=== PATIENT | male | born 1935 | race Caucasian/White ===

== ENCOUNTER → 2019-03-10 13:58 | Outpatient (CLI) | payer MEDICARE, SELFPAY ==
[2019-02-21 11:10] VITALS: BMI 29.7
--- NOTE | 2019-03-10 14:00 | ECHOCS_ITS ---
Reason For Study: CAD Procedure This was a 2D Doppler, Color Flow transthoracic echocardiogram. The study was technically difficult. Exam performed in department. Left Ventricle Normal size and thickness. The estimated ejection fraction is 75 %. Stage 1 diastolic dysfunction. No regional wall motion abnormalities noted. Right Ventricle Normal size and thickness. Normal systolic function. Atria Normal left atrium. Normal right atrium. Normal atrial septum. Mitral Valve The mitral valve is structurally normal. No prolapse or stenosis seen. Trivial mitral valve insufficiency. Tricuspid Valve Normal tricuspid valve. Unable to estimate RV systolic pressure due to insufficient tricuspid regurgitant envelope. Aortic Valve Trisinus/trileaflet aortic valve. Mild diffuse aortic valve thickening. There is no aortic stenosis. Pulmonic Valve Normal pulmonic valve. Great Vessels Normal aortic root. Normal arch. Normal inferior vena cava. Inferior vena cava collapse with sniff. Pericardium/Pleural No pericardial effusion. Medication 22 gauge I.V. with prn adaptor inserted into right arm. Diluted definity 2ml given slow IV push to enhance endocardial definition. MMode/2D Measurements & Calculations LVIDd: 3.7 cm IVSd: 1.1 cm LVOT diam: 2.2 cm LVIDs: 2.4 cm LVPWd: 0.99 cm FS: 35.9 % LVOT area: 3.8 cm2 Ao root diam: 3.6 cm LAV(MOD-bp): 44.0 ml LA A4 area: 12.8 cm2 LAV(MOD-bp) Indexed: 22.7 ml/m2 LAV(MOD-sp2): 69.7 ml LAV(MOD-sp4): 25.2 ml LA dimension(2D): 3.6 cm RA A4 area: 9.5 cm2 Doppler Measurements & Calculations MV E max michael: 63.3 cm/sec Lat Peak E' Michael: 13.1 cm/sec Med Peak E' Michael: 5.8 cm/sec MV A max michael: 93.2 cm/sec E/E' lat: 4.8 E/E' med: 11.0 MV E/A: 0.68 Ao V2 max: 148.7 cm/sec LV V1 max: 112.3 cm/sec PA V2 max: 115.4 cm/sec Ao max P.8 mmHg LV V1 max P.0 mmHg NEERU(V,D): 2.8 cm2 Interpretation Summary Stage 1 diastolic dysfunction. Trivial mitral valve insufficiency. The estimated ejection fraction is 75 %. The study was technically difficult. There is no comparison study available. Contrast injection was performed. Ordering Physician: Stefano Holguin Referring Physician: Stefano Holguin Performed By: Alycia Ramirez RDCS
== END ==
PROVIDERS: Family Provider Internal Medicine; PCP Internal Medicine; Referring Provider Internal Medicine Cardiovascular Disease; Visit Provider Internal Medicine Cardiovascular Disease
DX: I25.10 Atherosclerotic heart disease of native coronary artery without angina pectoris (principal)
CPT/HCPCS: 93306; Q9957; A4216; C8929

== ENCOUNTER → 2019-03-15 12:22 | Outpatient (CLI) | payer MEDICARE, SELFPAY ==
[2019-02-21 11:10] VITALS: BMI 29.7
--- NOTE | 2019-03-15 12:23 | STEWCON_ITS ---
Reason For Study: CAD/ASHD Stress Results Protocol: Johnny Protocol Maximum Predicted HR: 138 bpm Target HR: 117 bpm % Maximum Predicted HR: 99 % DurationHeart Rate Stage (mm:ss) (bpm) BP Comment Baseline 77 136/70No Chest Pain; Definity 3 ML Given Johnny Protocol Stage I 3:00 112 140/72No Chest Pain; Mild Dyspnea Johnny Protocol Stage II 2:01 136 150/70No Chest Pain; Mild to Moderate Dyspnea Recovery 80 130/76No Chest Pain Stress Duration: 5:01 mm:ss Maximum Stress HR: 136 bpm METS: 7 Baseline Echocardiogram Findings The estimated ejection fraction is 65 %. Stress Echo Wall motion Data Resting WM Intermediate WM Stress WM Resting Wall Motion Wall Motion Stress No regional wall motion No regional wall motion abnormalities noted. abnormalities noted. EKG Data The baseline ECG displays normal sinus rhythm. The patient exercised according to the regular Johnny protocol for a total duration of 5:01. The maximum heart rate attained was 137 beats per minute. This was 99% of maximum predicted heart rate. The patient exercised into stage 2 of the Johnny protocol. During stress, there were no ST or T wave changes noted to suggest ischemia. No clinical angina was noted. Interpretation Summary The estimated ejection fraction is 65 %. Normal, adequate, treadmill echocardiogram. Negative for ischemia by EKG and echocardiographic criteria. No anginal symptoms noted. Rare PVCs and ventricular couplets noted. Average exercise capacity for age. Decreased sensitivity due to poor echo windows requiring Definity agent. Final LVEF is 75%. Test terminated due to fatigue. The study was technically difficult. Contrast injection was performed. Ordering Physician: Stefano Holguin Referring Physician: Rolanda Giraldo Performed By: Rosy Hunt, RDCS, RVT
== END ==
PROVIDERS: Family Provider Internal Medicine; PCP Internal Medicine; Referring Provider Internal Medicine Cardiovascular Disease; Visit Provider Internal Medicine Cardiovascular Disease
DX: I25.10 Atherosclerotic heart disease of native coronary artery without angina pectoris (principal)
CPT/HCPCS: 93017; 93350; Q9957; A4216; C8928

== ENCOUNTER 2020-07-22 11:18 | Inpatient (IN) | payer MEDICARE, SELFPAY ==
[2020-03-19 11:07] VITALS: BMI 28.8
[2020-07-22] VITALS (13 sets, daily range): BP systolic 114–169; BP diastolic 49–82; PULSE 57–80; RESP 14–18; TEMP 35.9–36.9; O2SAT 88–99; BMI 28.9; BMI 29.0; BMI 28.5
--- NOTE | 2020-07-22 11:43 | CT_ITS ---
STUDY: CT ABDOMEN AND PELVIS WITH CONTRAST REASON FOR EXAM: Male, 85 years old. ABD PAIN,N/V HX-PROSTATE CA -RADIATION, LUNG CA RLL REMOVED 2013, HTN RADIATION DOSAGE (If Supplied By Facility): CTDIvol = ( 14.58 ) mGy, DLP = ( 831.28 ) mGycm TECHNIQUE: Transaxial images were obtained from the dome of the diaphragm to the symphysis pubis without oral contrast. 100ML ISOVUE 300 was administered. Sagittal and coronal images were reconstructed. Individualized dose optimization techniques were used for this CT. COMPARISON: Comparison is made with prior study dated 04/25/2015. FINDINGS: Stable mild increase in linear markings at the lung bases suggestive of scarring. Surgical sutures are seen in the posterior medial aspect of the right lower lobe. Calcified right infrahilar lymph nodes. Coronary artery calcification. There is decreased attenuation of the liver consistent with steatosis. Normal gallbladder and extrahepatic biliary system. There is mild splenomegaly. Normal pancreas. There is a small, circumscribed, smooth, low attenuation left adrenal mass, consistent with an adrenal adenoma. This measures 1.5 cm. Normal right adrenal gland. 3.5 cm cyst in the medial aspect of the right kidney. This has increased in size as compared to prior study. Normal left kidney. There is a small hiatal hernia. There are dilated loops of the small intestine with a non-distended colon consistent with a small bowel obstruction. The small bowel obstruction is due to a left inguinal hernia. There are multiple colonic diverticula consistent with diverticulosis. The appendix is visualized and appears normal. There is diffuse atherosclerotic calcification of the abdominal aorta, without a demonstrated aneurysm. Normal inferior vena cava. Normal retroperitoneum. Normal urinary bladder. Small amount of free fluid is seen in the pelvis. Phleboliths are seen within the pelvis. Prostatic calcifications. Left inguinal hernia containing a small bowel loop. There are degenerative changes of the visualized lumbar spine. CT/Abdomen/Pelvis W IV Cont ONLY IMPRESSION: Small bowel obstruction due to a left inguinal hernia containing a small bowel loop. Diffuse fatty position of the liver. Splenomegaly. Right renal cyst. Electronically Signed: Niko Diaz, at 13:56 EDT , Service support ,
[2020-07-22] MEDS: Morphine 4 MG/ML Syringe IV (12:11)
[2020-07-22] MEDS: Ondansetron 4 MG/2 ML Vial IV (12:11)
--- NOTE | 2020-07-22 12:13 | ED.DCSUM_ITS ---
- ER Visit Summary Date of Service: 07/22/20 Chief Complaint: Abdominal pain History of Present Illness: The patient is a 85 M who presents with abdominal pain. Started this morning. He states he ate breakfast and then after that started having diffuse sharp abdominal pain. Nothing makes it better or worse. He has had nausea and vomiting as well. No diarrhea or constipation. Denies urinary symptoms. No fevers. He denies any history of abdominal surgeries. He states he has had colitis in the past but this feels different. Physical Examination: Vital signs reviewed. HEENT exam unremarkable. Heart is regular rate and rhythm without murmurs. Lungs are clear to auscultation. Abdomen is soft with diffuse tenderness but the left seems to be more tender than the right. He does have rebound tenderness. Extremities reveal no edema. Skin exam normal. Neurologic exam normal. Test Results: Laboratory studies show white blood cell count 11.8, glucose 154, BUN of 20. Lactate is 3.7. CAT scan the abdomen pelvis shows a small bowel obstruction with concerns for left inguinal hernia Emergency Department Course and Treatment: Patient was more comfortable with morphine and Zofran. I discussed with Dr. Landeros with surgery. He reviewed the images and felt that the inguinal hernia was not the cause of it. The transition point was higher up in the abdomen. He evaluated this patient and like to take this patient to surgery. Patient will be admitted for surgical care then will be admitted to [facility] after the operating room. Treatment Plan: [] Disposition: Admit Impression: Small bowel obstruction This note was generated with [facility] dictation software. It may contain incorrect words, spelling, and punctuation that were not noted in review of the chart prior to signing ED Disposition - Plan for ED Patient: Referrals: Rolanda Giraldo MD [Primary Care Provider] -
[2020-07-22 12:18] LABS: Absolute Lymphocyte Count 0.66 X10^3/uL (0.83-4.51); Absolute Neutrophil Count 10.3 X10^3/uL (2.0-7.7); Basophil# 0.04 X10^3/uL; Basophil% 0.3 % (0-1); Eosinophil# 0.03 X10^3/uL; Eosinophils% 0.3 % (0-5); Hematocrit 45.3 % (40-54); Hemoglobin 14.6 g/dL (13.0-16.5); Lymphocyte # 0.66 X10^3/ul (4.0); Lymphocyte % 5.6 % (19-41); Mean Corp Hgb Conc 32.2 g/dL (32-36); Mean Corpuscular Hgb 30.9 pg (27.0-32.0); Mean Corpuscular Volume 95.8 fL (80-94); Mean Platelet Vol. 12.5 fl (6.2-12.0); Monocyte# 0.65 X10^3/uL; Monocyte% 5.5 % (0-10); NRBC Flagged by Analyzer 0 % (0-5); Neutrophil # 10.33 X10^3/uL (2.7-7.7); Neutrophil % 87.7 % (47-70); Platelet Count 357 K/mm3 (150-450); RBC Distribution Width CV 13.3 % (11.6-14.6); RBC Distribution Width SD 46.9 fl (35.1-43.9); Red Blood Count 4.73 M/mm3 (4.6-6.2); White Blood Count 11.8 K/mm3 (4.4-11.0)
[2020-07-22 12:46] LABS: AST(SGOT) 14 U/L (15-37); Alanine Aminotransfer ALT/SGPT 17 U/L (16-61); Albumin, Serum 4.2 g/dL (3.2-5.0); Alkaline Phosphatase 95 U/L (45-117); Anion Gap 9 (5-15); BUN 20 mg/dL (7-18); BUN/Creat Ratio 18.5 RATIO (10-20); Bilirubin, Direct 0.19 mg/dL (0.00-0.30); Calcium,Total 9.9 mg/dL (8.5-10.1); Chloride 102 mmol/L (98-107); Creatinine, Serum 1.08 mg/dL (0.70-1.30); EST Glomerular Filtration Rate 69 mL/min (>60); Est Glom Filt Rate - Afr Amer 84 mL/min (>60); Estimated Creatinine Clearance 45.95 ml/min; Globulin 3.4 g/dL (2.2-4.2); Glucose 154 mg/dL (74-106); Lipase 93 U/L (73-393); Potassium 3.6 mmol/L (3.5-5.1); Protein, Total 7.6 g/dL (6.4-8.2); Sodium Level 138 mmol/L (136-145)
[2020-07-22 12:53] LABS: Lactic Acid 3.7 mmol/L (0.4-1.9)
--- NOTE | 2020-07-22 14:54 | PCM.HP.STD ---
Problem List (1) SBO (small bowel obstruction) Status: Acute History of Present Illness Date of Admission: 07/22/20 The patient is a 85 year old M presented to the emergency room with left lower quadrant pain and nausea and vomiting. The patient had the symptoms started today. He said he was in normal health until today. He ate a normal breakfast. He developed nausea and vomiting as well as left lower quadrant pain which brought him into the hospital. He does not have any flatus since this morning. He is belching and vomiting. His pain is worse in the left lower quadrant he is not have any pain in the rest of the abdomen. He has never had any intra-abdominal surgery. His only surgical history is a left inguinal hernia Past Medical History Past Medical History (Chronic Problems): Chronic Problems (Last Reviewed 03/19/20 @ 11:07 by Chyna Tomlinson) Essential hypertension (Chronic) Stented coronary artery (Chronic 09/12/13) 4.0 X 18 mm Integrity BMS to mid-RCA on 09/13/[address] 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) K52.0 Diverticulosis of colon (Chronic) K57.30 History of basal cell carcinoma (Chronic) Z85.828 Benign neoplasm of colon (Chronic) D12.6 Bladder cancer (Chronic) C67.9 Obesity (BMI 30.0-34.9) (Chronic) E66.9 Anxiety (Chronic) F41.9 Allergies amoxicillin Adverse Reaction (Verified 07/22/20 11:20) GI upset lisinopril Adverse Reaction (Verified 07/22/20 11:20) COUGH Home Medications: Ambulatory Orders Medication Instructions Recorded Aspirin [Aspirin, Baby] 81 mg PO DAILY@0800 04/25/15 Folic Acid 1 mg PO DAILY@0800 03/16/17 abiraterone 250 mg tablet 1,000 mg PO DAILY 02/14/19 nitroglycerin 0.4 mg sublingual 0.4 mg SUBLINGUAL Q5-15M PRN 02/14/19 tablet prednisone 5 mg tablet 5 mg PO DAILY 02/14/19 losartan 100 mg tablet 100 mg PO DAILY 02/21/19 cyanocobalamin (vitamin B-12) 100 mcg IM QMONTH 07/13/19 1,000 mcg/mL injection kit potassium chloride 20 mEq 20 meq PO DAILY 07/13/19 tablet,extended release cholecalciferol (vitamin D3) 25 2,000 unit PO DAILY cap 03/19/20 mcg (1,000 unit) capsule Amlodipine [Norvasc] 5 mg PO DAILY 07/22/20 Surgical History: Surgical History (Last Reviewed 03/19/20 @ 11:07 by Chyna Tomlinson) Stented coronary artery (Chronic) Onset Date: 09/12/13 Z95.5 4.0 X 18 mm Integrity BMS to mid-RCA on 09/13/[address] Washington @ [facility] [place] History of transurethral resection of prostate Onset Date: 2001 Z980, Z90.79 for removal of bladder cancer S/P pneumonectomy Onset Date: 02/21/14 Z90.2 Right lower lobe removed for lung cancer History of appendectomy Z90.49 Patient was age 11 History of colonoscopy Z98.890 12/30/06, 08/25/2012 History of left inguinal hernia repair Z98.890, Z87.19 Patient approximately age 6 years History of sigmoidoscopy Onset Date: 03/19/17 Z98.890 History of tonsillectomy Z90.89 Patient age 13 years Status post cataract extraction and insertion of intraocular lens of right eye Z98.41, Z96.1 Surgical History: - - PCI ?1, appendectomy, right lower lobe pneumonectomy, tonsillectomy. Psychiatric History: No pertinent psych hx Smoking Status: Former smoker - *Family History Maternal Family History: Family History (Last Reviewed 03/19/20 @ 11:07 by Chyna Tomlinson) Mother Heart disease Father CAD (coronary artery disease) Brother Hypertension History Items: Hypertension Paternal Family History: Family History (Last Reviewed 03/19/20 @ 11:07 by Chyna Tomlinson) Mother Heart disease Father CAD (coronary artery disease) Brother Hypertension History Items: Hypertension Review of Systems Constitutional: Denies: Anorexia, Fever Cardiovascular: Denies: Chest Pain, Edema Respiratory: Denies: Cough, Shortness of Breath Gastrointestinal: Reports: Abdominal Pain, Nausea, Vomiting. Denies: Constipation, Diarrhea, Hematemesis, Hematochezia Genitourinary: Denies: Dysuria Skin: Denies: Jaundice Hematologic/ Lymphatic: Denies: Anemia VTE Information - Inpt Only VTE Present on Admission: No VTE Mechan Device Prophylaxis: SCD's - Physical Exam Vitals/I&O's: Vital Signs Temp Pulse Resp BP Pulse Ox 96.7 F L 69 14 121/55 H 95 07/22/20 11:18 07/22/20 14:00 07/22/20 14:00 07/22/20 14:00 07/22/20 14:00 Oxygen Flow Rate (L/min) 2 Oxygen Delivery Method Room Air Weight: 179 lb 7.3 oz Body Mass Index (BMI) 28.9 General: Alert, Oriented x3 Neck: No JVD Lungs: Normal air movement Cardiovascular: Regular rate, Regular Rhythm Abdomen: Soft, Distended, Tender - Tender in the left lower quadrant with guarding to deep palpation Extremities: No clubbing Skin: No rashes Neurological: Cranial nerves II-XII grossly intact Psych/Mental Status: Normal Affect Laboratory Results 07/22/20 11:55: WBC 11.8 H, RBC 4.73, Hgb 14.6, Hct 45.3, MCV 95.8 H, MCH 30.9, MCHC 32.2, RDW Std Deviation 46.9 H, RDW Coeff of David 13.3, Plt Count 357, MPV 12.5 H, Immature Gran % (Auto) 0.600, Neut % (Auto) 87.7 H, Lymph % (Auto) 5.6 L, [place] % (Auto) 5.5, Eos % (Auto) 0.3, Baso % (Auto) 0.3, Absolute Neuts (auto) 10.3 H, Absolute Lymphs (auto) 0.66 L, Nucleated RBC % 0 07/22/20 11:55: Sodium 138, Potassium 3.6, Chloride 102, Carbon Dioxide 27.0, Anion Gap 9, BUN 20 H, Creatinine 1.08, Estim Creat Clear Calc 45.95, Est GFR (MDRD) Af Amer 84, Est GFR (MDRD) Non-Af 69, BUN/Creatinine Ratio 18.5, Glucose 154 H, Calcium 9.9, Total Bilirubin 0.90, Direct Bilirubin 0.19, AST 14 L, ALT 17, Alkaline Phosphatase 95, Total Protein 7.6, Albumin 4.2, Globulin 3.4, Lipase 93 07/22/20 11:55: Lactic Acid 3.7 H* Current Medications Clindamycin Phosphate 900 mg/ (Dextrose) 106 mls @ 150 mls/hr IV PREOP ONE Stop: 07/22/20 15:25 Lactated Ringer's () 1,000 mls @ 100 mls/hr IV .Q10H NICOLE Assessment/Plan All Active Problems (Last Reviewed 03/19/20 @ 11:07 by Chyna Tomlinson) SBO (small bowel obstruction) (Acute) 85-year-old male with small bowel obstruction 1. I reviewed the patient's CT scan. The patient does have dilated small bowel but I believe I see a transition point in the mid abdomen at the midline. I do not agree with the CT read that it is involving the left inguinal hernia. I discussed the case with Dr. Dupont as well we both agree the patient needs exploratory laparoscopy. Patient has elevated lactate and elevated white count and he has never had history of intra-abdominal surgery making small bowel obstruction due to adhesions less likely. I discussed surgery with the patient and his [id number]. I discussed exploratory laparoscopy with possible conversion open. I discussed possible bowel resection. I discussed the risks of bleeding, infection, injury to other bowel or underlying organs. I discussed the possibility of a small bowel mass causing the obstruction. The patient understands all the risks and is willing to proceed with surgery. Brijesh Landeros MD Pager: [facility] [address] [place] [address] Office:
--- NOTE | 2020-07-22 15:10 | NURSING ---
SURGERY PAM CARNES
[2020-07-22] MEDS: Lactated Ringers 1,000 ML 100 ML IV ×2 (15:18→18:05)
--- NOTE | 2020-07-22 15:31 | EKG12_ITS ---
Test Reason : PRE OP Blood Pressure : / mmHG Vent. Rate : 083 BPM Atrial Rate : 072 BPM P-R Int : 184 ms QRS Dur : 086 ms QT Int : 506 ms P-R-T Axes : 057 080 073 degrees QTc Int : 594 ms Sinus rhythm with frequent and consecutive Premature ventricular complexes Inferior infarct , age undetermined Prolonged QT Abnormal ECG Confirmed by LYNNE CAMERON, GENOVEVA ([id number]), associate entertainment editor SCOTT MIRELES ([id number]) on 07/25/2020 9:24:23 AM Referred By: Confirmed By:GENOVEVA BATISTA MD
[2020-07-22 16:09] LABS: Reflex Lactate? Y
[2020-07-22] MEDS: Bupivacaine Mpf 0.5% 30 ML VIAL (16:32)
--- NOTE | 2020-07-22 17:17 | PCM.OPRPT ---
Problem List (1) SBO (small bowel obstruction) Status: Acute Report of Operation Date of Procedure: 07/22/20 Pre-Operative Diagnosis: Small bowel obstruction Post-Operative Diagnosis: Small bowel obstruction Surgery/Procedure Performed:: Exploratory laparoscopy with release of small bowel adhesion Description of Procedure: Patient was taken back to the operating room and general anesthesia was induced. The abdomen was prepped and draped in usual sterile fashion. An incision was made superior to the umbilicus deep to the fascia. The fascia was elevated and incised and a finger sweep was performed and a port was placed into the abdomen. The abdomen was insufflated to 15 mmHg. The abdomen was inspected and the patient had partially ischemic bowel in the left lower quadrant. Under direct visualization a 5 mm port was placed in the suprapubic space and right upper quadrant. Patient was placed in Trendelenburg position. After inspection of the bowel it appeared the patient had a band extending from the left lower quadrant peritoneum down to the mesentery. This was lysed and this released the bowel. The bowel appeared viable with some congestion but no necrosis. The entire small bowel was run from ligament of Treitz to the terminal ileum and there were no other transition points or pathology. The patient had no discernible inguinal hernia in the left lower quadrant. There was some oozing from where the band originated which was stopped using electrocautery. The abdomen was allowed to desufflate and the ports were removed. The midline fascia was closed with a [id number] 0 Vicryl suture. All the ports were anesthetized and closed with interrupted 4-0 Monocryl suture. Steri-Strips and bandages were applied. Patient will be admitted to the floor for observation. Patient was awoken and taken to PACU in stable condition. - Admit VTE Documentation VTE Mechan Device Prophylaxis: SCD's
[2020-07-22 18:52] LABS: Lactic Acid 4.8 mmol/L (0.4-1.9)
[2020-07-22] MEDS: CLARIFY ORDER NOTE (22:31)
[2020-07-23 00:53] LABS: Lactic Acid 3.2 mmol/L (0.4-1.9)
[2020-07-23 02:02] VITALS: BP 124/56; PULSE 64; RESP 16; TEMP 36.7; O2SAT 92
[2020-07-23] MEDS: 0.9% Saline Lock 10 ML Syringe IV ×2 (02:03→04:55)
[2020-07-23] MEDS: Morphine 2 MG/ML Syringe IV (02:04)
[2020-07-23 02:18] VITALS: BMI 29.0
[2020-07-23] MEDS: Lactated Ringers 1,000 ML 100 ML IV ×2 (04:01→14:25)
[2020-07-23 04:17] LABS: Reflex Lactate? Y
[2020-07-23] MEDS: Ondansetron 4 MG/2 ML Vial IV (04:55)
[2020-07-23 05:09] LABS: Absolute Lymphocyte Count 0.67 X10^3/uL (0.83-4.51); Absolute Neutrophil Count 8.3 X10^3/uL (2.0-7.7); Basophil# 0.02 X10^3/uL; Basophil% 0.2 % (0-1); Eosinophil# 0.02 X10^3/uL; Eosinophils% 0.2 % (0-5); Hematocrit 39.8 % (40-54); Hemoglobin 12.9 g/dL (13.0-16.5); Lymphocyte # 0.67 X10^3/ul (4.0); Lymphocyte % 6.8 % (19-41); Mean Corp Hgb Conc 32.4 g/dL (32-36); Mean Corpuscular Hgb 31.6 pg (27.0-32.0); Mean Corpuscular Volume 97.5 fL (80-94); Monocyte# 0.91 X10^3/uL; Monocyte% 9.2 % (0-10); NRBC Flagged by Analyzer 0 % (0-5); Neutrophil # 8.26 X10^3/uL (2.7-7.7); Neutrophil % 83.3 % (47-70); Platelet Count 277 K/mm3 (150-450); RBC Distribution Width CV 13.5 % (11.6-14.6); RBC Distribution Width SD 48.1 fl (35.1-43.9); Red Blood Count 4.08 M/mm3 (4.6-6.2); White Blood Count 9.9 K/mm3 (4.4-11.0)
[2020-07-23 05:23] LABS: Anion Gap 6 (5-15); BUN 16 mg/dL (7-18); BUN/Creat Ratio 17.9 RATIO (10-20); Calcium,Total 8.4 mg/dL (8.5-10.1); Chloride 104 mmol/L (98-107); EST Glomerular Filtration Rate 86 mL/min (>60); Est Glom Filt Rate - Afr Amer 104 mL/min (>60); Estimated Creatinine Clearance 55.14 ml/min; Glucose 106 mg/dL (74-106); Potassium 3.9 mmol/L (3.5-5.1); Sodium Level 140 mmol/L (136-145)
[2020-07-23 05:30] LABS: Lactic Acid 2.1 mmol/L (0.4-1.9)
[2020-07-23 06:35] VITALS: BMI 29.0
--- NOTE | 2020-07-23 07:27 | PN.SURG_ITS ---
Patient Problems: Active and Suspected Problems (Last Reviewed 03/19/20 @ 11:07 by Chyna Tomlinson) SBO (small bowel obstruction) (Acute) Subjective: Patient is doing better this morning. He is not having any abdominal pain. He did have some nausea and he is not passing any flatus. - Physical Exam Vitals/I&O's: Vital Signs Temp Pulse Resp BP Pulse Ox 98.1 F 64 16 124/56 H 92 07/23/20 02:02 07/23/20 02:02 07/23/20 02:02 07/23/20 02:02 07/23/20 02:02 Oxygen Flow Rate (L/min) 2 Oxygen Delivery Method Room Air Weight: 176 lb 12.972 oz Body Mass Index (BMI) 28.5 Intake and Output for Last 24 Hours 07/21/20 07/22/20 07/23/20 23:59 23:59 23:59 Intake Total 1381 / 1431 843.33 / 843.33 Output Total 525 / 525 Balance 1381 / 1181 318.33 / 318.33 General: Alert, Oriented x3 Lungs: Normal air movement Abdomen: Soft, Non Tender, Non-Distended Laboratory Results 07/22/20 11:55: WBC 11.8 H, RBC 4.73, Hgb 14.6, Hct 45.3, MCV 95.8 H, MCH 30.9, MCHC 32.2, RDW Std Deviation 46.9 H, RDW Coeff of David 13.3, Plt Count 357, MPV 12.5 H, Immature Gran % (Auto) 0.600, Neut % (Auto) 87.7 H, Lymph % (Auto) 5.6 L , [place] % (Auto) 5.5, Eos % (Auto) 0.3, Baso % (Auto) 0.3, Absolute Neuts (auto) 10.3 H, Absolute Lymphs (auto) 0.66 L, Nucleated RBC % 0 07/22/20 11:55: Sodium 138, Potassium 3.6, Chloride 102, Carbon Dioxide 27.0, Anion Gap 9, BUN 20 H, Creatinine 1.08, Estim Creat Clear Calc 45.95, Est GFR (MDRD) Af Amer 84, Est GFR (MDRD) Non-Af 69, BUN/Creatinine Ratio 18.5, Glucose 154 H, Calcium 9.9, Total Bilirubin 0.90, Direct Bilirubin 0.19, AST 14 L, ALT 17, Alkaline Phosphatase 95, Total Protein 7.6, Albumin 4.2, Globulin 3.4, Lipase 93 07/22/20 11:55: Lactic Acid 3.7 H* 07/22/20 17:53: Lactic Acid 4.8 H* 07/22/20 23:48: Lactic Acid 3.2 H* 07/23/20 04:58: WBC 9.9, RBC 4.08 L, Hgb 12.9 L, Hct 39.8 L, MCV 97.5 H, MCH 31.6, MCHC 32.4, RDW Std Deviation 48.1 H, RDW Coeff of David 13.5, Plt Count 277, MPV 12.0, Immature Gran % (Auto) 0.300, Neut % (Auto) 83.3 H, Lymph % (Auto) 6.8 L, [place] % (Auto) 9.2, Eos % (Auto) 0.2, Baso % (Auto) 0.2, Absolute Neuts (auto) 8.3 H, Absolute Lymphs (auto) 0.67 L, Nucleated RBC % 0 07/23/20 04:58: Sodium 140, Potassium 3.9, Chloride 104, Carbon Dioxide 30.0, Anion Gap 6, BUN 16, Creatinine 0.90, Estim Creat Clear Calc 55.14, Est GFR (MDRD) Af Amer 104, Est GFR (MDRD) Non-Af 86, BUN/Creatinine Ratio 17.9, Glucose 106, Calcium 8.4 L 07/23/20 04:58: Lactic Acid 2.1 H* Current Medications Abiraterone Acetate (Abiraterone Acetate 250 Mg Tablet) 1,000 mg PO DAILY NICOLE Amlodipine Besylate (Amlodipine 5 Mg Tablet) 5 mg PO DAILY NICOLE Lactated Ringer's () 1,000 mls @ 100 mls/hr IV .Q10H NICOLE Last Admin: 07/23/20 04:01 Dose: 100 mls/hr Documented by: Pantoprazole Sodium 40 mg/ (Sodium Chloride) 110 mls @ 330 mls/hr IV Q24 NICOLE Last Infusion: 07/22/20 20:05 Dose: Infused Documented by: Sodium Chloride () 250 mls @ 15 mls/hr IV .[id number] PRN PRN Reason: Saline Flush Sodium Chloride () 250 mls @ 15 mls/hr IV .[id number] PRN PRN Reason: Additional IVPB Infusion Losartan Potassium (Losartan Potassium 100 Mg Tablet) 100 mg PO DAILY NICOLE Morphine Sulfate (Morphine 2 Mg/Ml Syringe) 2 - 4 mg IV Q2H PRN PRN PRN Reason: Pain Score 4-10 Last Admin: 07/23/20 02:04 Dose: 2 mg Documented by: Morphine Sulfate (Morphine 4 Mg/Ml Syringe) 2 - 4 mg IV Q2H PRN PRN PRN Reason: Pain Score 4-10 Nitroglycerin (Nitroglycerin (Inpatient Use) 0.4 Mg Tab.Subl) 0.4 mg SUBLINGUAL Q5M PRN PRN Reason: chest pain Ondansetron HCl (Ondansetron 4 Mg/2 Ml Vial) 4 mg IV Q6H PRN PRN PRN Reason: NAUSEA/VOMITING Last Admin: 07/23/20 04:55 Dose: 4 mg Documented by: Prednisone (Prednisone 5 Mg Tablet) 5 mg PO DAILYCM NICOLE Sodium Chloride (0.9% Saline Lock 10 Ml Syringe) 10 - 40 ml IV UD PRN PRN Reason: SALINE FLUSH Last Admin: 07/23/20 04:55 Dose: 10 ml Documented by: Medical Necessity - Tobacco Use Smoking Status: Former smoker Assessment/Plan All Active Problems (Last Reviewed 03/19/20 @ 11:07 by Chyna Tomlinson) SBO (small bowel obstruction) (Acute) 85-year-old male status post release of small bowel obstruction 1. Patient is doing well. His lactate has decreased from 4.8 to 2.1. He has made some urine. He is not passing any flatus yet. Continue to encourage a mbulation and await bowel function. Brijesh Landeros MD Pager: [facility] [address] [place] [address], [address] [place] [address] Office:
[2020-07-23 08:15] VITALS: BP 126/59; PULSE 81; RESP 18; TEMP 36.9; O2SAT 93
[2020-07-23 09:07] LABS: Reflex Lactate? Y
[2020-07-23 09:53] LABS: Lactic Acid 1.4 mmol/L (0.4-1.9)
[2020-07-23 13:37] VITALS: BP 144/68; PULSE 77; RESP 18; TEMP 36.7; O2SAT 97
--- NOTE | 2020-07-23 13:40 | CASEMGMT ---
RN JAIME METAL FURNITURE REPAIRER CM to room to meet with patient for initial transition planning/care coordination assessment. RICHELLE SANDOVAL introduced self and role at [facility]. Pt voices understanding and consents to assessment at this time. Pt resting in bed in no distress at this time. Pt is A/O at this time and answers all questions appropriately. Care providers, pharmacy, and demographics verified/updated at this time. PCP: Specialists: Preferred Pharmacy: Insurance: Prescription Benefit: Living Will/HPOA: Pt does not currently have LW/HCPOA and declines info at this time. Pt made aware that he can contact SW as an out-pt and make appt in the future if he decides he would like to talk with someone about this or would like to utilize [facility] social work for advanced directive completion. Given [employer] card with information and contact number. Pt expresses understanding. States does not have LW or HCPOA . Interested in more information but states does not want to talk with SW at this time to complete paperwork. Provided information on advanced directives and given [employer] card with number to call if chooses in the future to utilize [facility] social work for advanced directive completion. Educated patient that, if patient so chooses, can come back to [facility] and meet with a SW as an outpatient to complete health care advanced directives. Patient expresses understanding. LNOK: Living Arrangements: Transportation: Pt states drives self and states no transportation concerns at this time. DME: Denies using any DME and denies needs. States has the following DME: Pt states no need for further DME at this time. HHC/SNF: Pt wishes to return home and states has no concerns with going home at time of discharge. Pt states does not smoke or drink ETOH. CM to follow for home oxygen needs and any further discharge planning/needs. Pt voices no further concerns/needs at this time. Advised pt to ask for CM if any further questions/concerns/needs arise. Voices understanding. PLAN: Dontae SHAW RN, CM
--- NOTE | 2020-07-23 13:40 | CASEMGMT ---
RICHELLE SANDOVAL SUPERVISOR NEWSPAPER DELIVERIES CM to room to meet with patient for initial transition planning/care coordination assessment. RICHELLE SANDOVAL introduced self and role at [facility]. Pt voices understanding and consents to assessment at this time. Pt resting in bed in no distress at this time. Pt is A/O at this time and answers all questions appropriately. Care providers, pharmacy, and demographics verified/updated at this time. PCP: Dr Giraldo Specialists: Dr Pena-oncology. Preferred Pharmacy: [email or web address] Insurance: [facility] Prescription Benefit: yes Living Will/HPOA: States is not sure if he has these LNOK: , Arin. 3 sons. Living Arrangements: Lives w/his , Arin, in 2-story home w/3-4 steps to enter. 13 steps with bilat rails to 2nd floor where bedroom and bath are. Also has bath on main floor. States he does okay with stairs. He takes them slowly. Pt helps to care for his --he assists her with bathing, manages her medications and appts, and does all home mgmt tasks. Transportation: Pt states drives self and states no transportation concerns at this time. DME: States has the following DME: cane, rails/grab bars. Pt states no need for further DME at this time. HHC/SNF: No history of either. Denies need for HHC or OP therapy. Pt wishes to return home and states has no concerns with going home at time of discharge. CM to follow for discharge planning/needs. Pt voices no concerns/needs at this time. Advised pt to ask for CM if any questions/concerns/needs arise. Voices understanding. PLAN: Home Dontae SHAW RN, CM
[2020-07-23 13:44] VITALS: BMI 29.0
[2020-07-23 17:14] VITALS: BP 135/65; PULSE 78; RESP 18; TEMP 36.8; O2SAT 97; BMI 29.0
[2020-07-23 22:46] VITALS: BP 138/74; PULSE 71; RESP 18; TEMP 36.8; O2SAT 92
[2020-07-23 22:54] VITALS: BMI 29.0
[2020-07-24] MEDS: Lactated Ringers 1,000 ML 100 ML IV (01:07)
[2020-07-24 03:15] VITALS: BP 116/60; PULSE 65; RESP 18; TEMP 36.8; O2SAT 95
[2020-07-24 06:05] LABS: Absolute Lymphocyte Count 0.61 X10^3/uL (0.83-4.51); Absolute Neutrophil Count 6.6 X10^3/uL (2.0-7.7); Basophil# 0.02 X10^3/uL; Basophil% 0.2 % (0-1); Eosinophil# 0.19 X10^3/uL; Eosinophils% 2.3 % (0-5); Hematocrit 37.5 % (40-54); Hemoglobin 11.7 g/dL (13.0-16.5); Lymphocyte # 0.61 X10^3/ul (4.0); Lymphocyte % 7.4 % (19-41); Mean Corp Hgb Conc 31.2 g/dL (32-36); Mean Corpuscular Hgb 31.1 pg (27.0-32.0); Mean Corpuscular Volume 99.7 fL (80-94); Monocyte# 0.79 X10^3/uL; Monocyte% 9.6 % (0-10); NRBC Flagged by Analyzer 0 % (0-5); Neutrophil # 6.57 X10^3/uL (2.7-7.7); Neutrophil % 80.3 % (47-70); Platelet Count 232 K/mm3 (150-450); RBC Distribution Width CV 13.7 % (11.6-14.6); RBC Distribution Width SD 50.5 fl (35.1-43.9); Red Blood Count 3.76 M/mm3 (4.6-6.2); White Blood Count 8.2 K/mm3 (4.4-11.0)
[2020-07-24 06:34] LABS: Anion Gap 4 (5-15); BUN 14 mg/dL (7-18); BUN/Creat Ratio 18.5 RATIO (10-20); Calcium,Total 8.4 mg/dL (8.5-10.1); Chloride 108 mmol/L (98-107); Creatinine, Serum 0.76 mg/dL (0.70-1.30); EST Glomerular Filtration Rate 104 mL/min (>60); Est Glom Filt Rate - Afr Amer 126 mL/min (>60); Estimated Creatinine Clearance 49.62 ml/min; Glucose 97 mg/dL (74-106); Potassium 3.8 mmol/L (3.5-5.1); Sodium Level 142 mmol/L (136-145)
[2020-07-24 07:56] VITALS: BP 114/51; PULSE 61; RESP 18; TEMP 36.8; O2SAT 93
--- NOTE | 2020-07-24 07:57 | PCM.PN.SRG ---
Patient Problems: Active and Suspected Problems (Last Reviewed 03/19/20 @ 11:07 by Chyna Tomlinson) SBO (small bowel obstruction) (Acute) Subjective: Patient is doing well with minimal abdominal pain and is passing flatus. He had some nausea yesterday but overnight he has had no nausea or vomiting - Physical Exam Vitals/I&O's: Vital Signs Temp Pulse Resp BP Pulse Ox 98.3 F 61 18 114/51 L 93 07/24/20 07:56 07/24/20 07:56 07/24/20 07:56 07/24/20 07:56 07/24/20 07:56 Oxygen Flow Rate (L/min) 2 Oxygen Delivery Method Room Air Weight: 176 lb 12.972 oz Body Mass Index (BMI) 28.5 Intake and Output for Last 24 Hours 07/22/20 07/23/20 07/24/20 23:59 23:59 23:59 Intake Total 1381 / 1431 2053.33 / 2053.33 1010 / 1010 Output Total 1025 / 1025 400 / 400 Balance 1381 / 1181 1028.33 / 1028.33 610 / 610 General: Alert, Oriented x3 Lungs: Normal air movement Abdomen: Soft, Non Tender, Distended Laboratory Results 07/23/20 09:20: Lactic Acid 1.4 07/24/20 05:35: WBC 8.2, RBC 3.76 L, Hgb 11.7 L, Hct 37.5 L, MCV 99.7 H, MCH 31.1, MCHC 31.2 L, RDW Std Deviation 50.5 H, RDW Coeff of David 13.7, Plt Count 232, MPV 12.0, Immature Gran % (Auto) 0.200, Neut % (Auto) 80.3 H, Lymph % (Auto) 7.4 L, [place] % (Auto) 9.6, Eos % (Auto) 2.3, Baso % (Auto) 0.2, Absolute Neuts (auto) 6.6, Absolute Lymphs (auto) 0.61 L, Nucleated RBC % 0 07/24/20 05:35: Sodium 142, Potassium 3.8, Chloride 108 H, Carbon Dioxide 30.0, Anion Gap 4 L, BUN 14, Creatinine 0.76, Estim Creat Clear Calc 49.62, Est GFR (MDRD) Af Amer 126, Est GFR (MDRD) Non-Af 104, BUN/Creatinine Ratio 18.5, Glucose 97, Calcium 8.4 L Current Medications Abiraterone Acetate (Abiraterone Acetate 250 Mg Tablet) 1,000 mg PO DAILY [facility] Last Admin: 07/23/20 10:24 Dose: Not Given Documented by: Amlodipine Besylate (Amlodipine 5 Mg Tablet) 5 mg PO DAILY [facility] Last Admin: 07/23/20 10:24 Dose: Not Given Documented by: Lactated Ringer's () 1,000 mls @ 100 mls/hr IV .Q10H [facility] Last Admin: 07/24/20 01:07 Dose: 100 mls/hr Documented by: Pantoprazole Sodium 40 mg/ (Sodium Chloride) 110 mls @ 330 mls/hr IV Q24 [facility] Last Infusion: 07/23/20 10:43 Dose: Infused Documented by: Sodium Chloride () 250 mls @ 15 mls/hr IV .[id number] PRN PRN Reason: Saline Flush Sodium Chloride () 250 mls @ 15 mls/hr IV .[id number] PRN PRN Reason: Additional IVPB Infusion Losartan Potassium (Losartan Potassium 100 Mg Tablet) 100 mg PO DAILY [facility] Last Admin: 07/23/20 10:24 Dose: Not Given Documented by: Morphine Sulfate (Morphine 2 Mg/Ml Syringe) 2 - 4 mg IV Q2H PRN PRN PRN Reason: Pain Score 4-10 Last Admin: 07/23/20 02:04 Dose: 2 mg Documented by: Morphine Sulfate (Morphine 4 Mg/Ml Syringe) 2 - 4 mg IV Q2H PRN PRN PRN Reason: Pain Score 4-10 Nitroglycerin (Nitroglycerin (Inpatient Use) 0.4 Mg Tab.Subl) 0.4 mg SUBLINGUAL Q5M PRN PRN Reason: chest pain Ondansetron HCl (Ondansetron 4 Mg/2 Ml Vial) 4 mg IV Q6H PRN PRN PRN Reason: NAUSEA/VOMITING Last Admin: 07/23/20 04:55 Dose: 4 mg Documented by: Prednisone ([facility] 5 Mg Tablet) [facility] Last Admin: 07/23/20 08:19 Dose: Not Given Documented by: Promethazine HCl (Promethazine 25 Mg/Ml Syringe) 12.5 mg IV Q6H PRN PRN PRN Reason: NAUSEA/VOMITING Sodium Chloride (0.9% Saline Lock 10 Ml Syringe) 10 - 40 ml IV UD PRN PRN Reason: SALINE FLUSH Last Admin: 07/23/20 04:55 Dose: 10 ml Documented by: Medical Necessity - Tobacco Use Smoking Status: Former smoker Assessment/Plan All Active Problems (Last Reviewed 03/19/20 @ 11:07 by Chyna Tomlinson) SBO (small bowel obstruction) (Acute) 85-year-old male status post small bowel obstruction laparoscopy 1. Patient reports he is doing well and he is passing gas. He is a little bit distended still but this is improved and he is having no nausea. I will start some clear liquids today and see how he does with them. Brijesh Landeros MD Pager: [facility] [address] [place] [address], [address] [place] [address] Office:
[2020-07-24 12:00] VITALS: BP 122/57; PULSE 64; RESP 18; TEMP 36.8; O2SAT 93
[2020-07-24] MEDS: Lactated Ringers 1,000 ML 40 ML IV (17:08)
[2020-07-24 17:39] VITALS: BP 123/62; PULSE 70; RESP 18; TEMP 36.9; O2SAT 95
[2020-07-24 20:57] VITALS: BP 134/63; PULSE 66; RESP 18; TEMP 36.6; O2SAT 94
[2020-07-25] VITALS (7 sets, daily range): BP systolic 131–146; BP diastolic 57–67; PULSE 66–79; RESP 16–18; TEMP 36.4–37; O2SAT 86–95
--- NOTE | 2020-07-25 07:45 | PN.SURG_ITS ---
Patient Problems: Active and Suspected Problems (Last Reviewed 03/19/20 @ 11:07 by Chyna Tomlinson) SBO (small bowel obstruction) (Acute) Subjective: Patient tolerated clear liquids and no nausea or vomiting. He is not having any abdominal pain except for at his incision. He is passing copious flatus - Physical Exam Vitals/I&O's: Vital Signs Temp Pulse Resp BP Pulse Ox 98.2 F 68 16 141/64 H 94 07/25/20 02:15 07/25/20 02:15 07/25/20 02:15 07/25/20 02:15 07/25/20 02:15 Oxygen Flow Rate (L/min) 2 Oxygen Delivery Method Nasal Cannula Weight: 176 lb 12.972 oz Body Mass Index (BMI) 28.5 Intake and Output for Last 24 Hours 07/23/20 07/24/20 07/25/20 23:59 23:59 23:59 Intake Total 2053.33 / 2053.33 3000.00 / 3000.00 549.33 / 549.33 Output Total 1025 / 1025 1150 / 1500 525 / 525 Balance 1028.33 / 1028.33 1850.00 / 1500.00 24.33 / 24.33 General: Alert, Oriented x3 Lungs: Normal air movement Cardiovascular: Regular rate, Regular Rhythm Abdomen: Soft, Non-Distended Extremities: No clubbing Skin: No rashes Musculoskeletal: No Tenderness to Palpation of Joints or Extremities Psych/Mental Status: Appropriate Current Medications Abiraterone Acetate (Abiraterone Acetate 250 Mg Tablet) 1,000 mg PO DAILY [facility] Last Admin: 07/24/20 10:03 Dose: Not Given Documented by: Amlodipine Besylate (Amlodipine 5 Mg Tablet) 5 mg PO DAILY [facility] Last Admin: 07/24/20 10:03 Dose: Not Given Documented by: Lactated Ringer's () 1,000 mls @ 40 mls/hr IV .Q25H [facility] Last Infusion: 07/25/20 06:52 Dose: 40 mls/hr Documented by: Pantoprazole Sodium 40 mg/ (Sodium Chloride) 110 mls @ 330 mls/hr IV Q24 [facility] Last Infusion: 07/24/20 10:25 Dose: Infused Documented by: Sodium Chloride () 250 mls @ 15 mls/hr IV .[id number] PRN PRN Reason: Saline Flush Sodium Chloride () 250 mls @ 15 mls/hr IV .[id number] PRN PRN Reason: Additional IVPB Infusion Losartan Potassium (Losartan Potassium 100 Mg Tablet) 100 mg PO DAILY [facility] Last Admin: 07/24/20 10:03 Dose: Not Given Documented by: Morphine Sulfate (Morphine 2 Mg/Ml Syringe) 2 - 4 mg IV Q2H PRN PRN PRN Reason: Pain Score 4-10 Last Admin: 07/23/20 02:04 Dose: 2 mg Documented by: Morphine Sulfate (Morphine 4 Mg/Ml Syringe) 2 - 4 mg IV Q2H PRN PRN PRN Reason: Pain Score 4-10 Nitroglycerin (Nitroglycerin (Inpatient Use) 0.4 Mg Tab.Subl) 0.4 mg SUBLINGUAL Q5M PRN PRN Reason: chest pain Ondansetron HCl (Ondansetron 4 Mg/2 Ml Vial) 4 mg IV Q6H PRN PRN PRN Reason: NAUSEA/VOMITING Last Admin: 07/23/20 04:55 Dose: 4 mg Documented by: [facility] Last Admin: 07/24/20 10:03 Dose: Not Given Documented by: Promethazine HCl (Promethazine 25 Mg/Ml Syringe) 12.5 mg IV Q6H PRN PRN PRN Reason: NAUSEA/VOMITING Sodium Chloride (0.9% Saline Lock 10 Ml Syringe) 10 - 40 ml IV UD PRN PRN Reason: SALINE FLUSH Last Admin: 07/23/20 04:55 Dose: 10 ml Documented by: Medical Necessity - Tobacco Use Smoking Status: Former smoker Assessment/Plan All Active Problems (Last Reviewed 03/19/20 @ 11:07 by Chyna Tomlinson) SBO (small bowel obstruction) (Acute) 85-year-old male status post laparoscopic release of small bowel obstruction 1. Patient reports that he is doing well and passing flatus and tolerating clears. I will advance him to a transitional diet. If he tolerates this he may be ready for discharge by later today. Brijesh Landeros MD Pager: [facility] [address] [place] [address], [address] [place] [address] Office:
--- NOTE | 2020-07-25 13:31 | DCINST_ITS ---
- Discharge Diagnoses Current Active Problems: Current Active and Chronic Problems (Last Reviewed 03/19/20 @ 11:07 by Chyna Tomlinson) SBO (small bowel obstruction) (Acute) You will use the following diet at home:: Regular Your food should be the consistency of: Regular Discharge Activity: May Drive, May Shower Lifting Restrictions: 20 lbs for 2 weeks Call your doctor if your incision/area has: Continuous Slow Oozing, Sudden Increased Bleeding, Increased Pain/ Swelling, Increased Redness, Foul Smelling Discharge, Swelling at the incision site Call your doctor if you observe: Fever of 101 or Higher Change Dressing in (Days):: 1 Cleanse incision/area with: Soap & Water Allergies/Adverse Reactions: Allergies amoxicillin Adverse Reaction (Verified 07/22/20 11:20) GI upset lisinopril Adverse Reaction (Verified 07/22/20 11:20) COUGH Medications to take at Discharge Aspirin [Aspirin, Baby] 81 mg PO DAILY@0800 04/25/15 Folic Acid 1 mg PO DAILY@0800 03/16/17 abiraterone 250 mg tablet 1,000 mg PO DAILY 02/14/19 nitroglycerin 0.4 mg sublingual tablet 0.4 mg SUBLINGUAL Q5-15M PRN 02/14/19 prednisone 5 mg tablet 5 mg PO DAILY 02/14/19 losartan 100 mg tablet 100 mg PO DAILY 02/21/19 cyanocobalamin (vitamin B-12) 1,000 mcg/mL injection kit 100 mcg IM QMONTH 07/13/19 potassium chloride 20 mEq tablet,extended release 20 meq PO DAILY 07/13/19 cholecalciferol (vitamin D3) 25 mcg (1,000 unit) capsule 2,000 unit PO DAILY cap 03/19/20 Amlodipine [Norvasc] 5 mg PO DAILY 07/22/20 Test Results: Test results from this visit will be discussed in further detail at your follow- up appointment, if applicable. Please Follow Up With: Brijesh Landeros MD When: Please call to schedule 2 week follow up appointment. [phone]
[2020-07-25] MEDS: Lactated Ringers 1,000 ML 40 ML IV (18:33)
--- NOTE | 2020-07-25 19:46 | NURSING ---
pt walked two full laps in the high. tolerated well.
[2020-07-26] VITALS (9 sets, daily range): BP systolic 145–154; BP diastolic 62–78; PULSE 63–66; RESP 18; TEMP 35.9–36.8; O2SAT 88–98
--- NOTE | 2020-07-26 07:13 | PN.SURG_ITS ---
Patient Problems: Active and Suspected Problems (Last Reviewed 03/19/20 @ 11:07 by Chyna Tomlinson) SBO (small bowel obstruction) (Acute) Subjective: Patient tolerated diet and the bloating he was having yesterday has resolved and he is passing copious flatus and had a smear of stool - Physical Exam Vitals/I&O's: Vital Signs Temp Pulse Resp BP Pulse Ox 97.2 F L 64 18 145/70 H 93 07/26/20 06:15 07/26/20 06:15 07/26/20 06:15 07/26/20 06:15 07/26/20 06:37 Oxygen Flow Rate (L/min) 1 Oxygen Delivery Method Nasal Cannula Weight: 176 lb 12.972 oz Body Mass Index (BMI) 28.5 Intake and Output for Last 24 Hours 07/24/20 07/25/20 07/26/20 23:59 23:59 23:59 Intake Total 3000.00 / 3000.00 2210.00 / 2210.00 Output Total 1150 / 1500 1450 / 1450 Balance 1850.00 / 1500.00 760.00 / 760.00 General: Alert, Oriented x3 Lungs: Normal air movement Cardiovascular: Regular rate, Normal S1 Abdomen: Soft, Non Tender, Non-Distended Current Medications Abiraterone Acetate (Abiraterone Acetate 250 Mg Tablet) 1,000 mg PO DAILY [facility] Last Admin: 07/25/20 09:50 Dose: Not Given Documented by: Amlodipine Besylate (Amlodipine 5 Mg Tablet) 5 mg PO DAILY [facility] Last Admin: 07/25/20 09:50 Dose: Not Given Documented by: Lactated Ringer's () 1,000 mls @ 40 mls/hr IV .Q25H [facility] Last Admin: 07/26/20 02:01 Dose: Not Given Documented by: Pantoprazole Sodium 40 mg/ (Sodium Chloride) 110 mls @ 330 mls/hr IV Q24 [facility] Last Infusion: 07/25/20 09:12 Dose: Infused Documented by: Sodium Chloride () 250 mls @ 15 mls/hr IV .[id number] PRN PRN Reason: Saline Flush Sodium Chloride () 250 mls @ 15 mls/hr IV .[id number] PRN PRN Reason: Additional IVPB Infusion Losartan Potassium (Losartan Potassium 100 Mg Tablet) 100 mg PO DAILY [facility] Last Admin: 07/25/20 09:49 Dose: Not Given Documented by: Morphine Sulfate (Morphine 2 Mg/Ml Syringe) 2 - 4 mg IV Q2H PRN PRN PRN Reason: Pain Score 4-10 Last Admin: 07/23/20 02:04 Dose: 2 mg Documented by: Morphine Sulfate (Morphine 4 Mg/Ml Syringe) 2 - 4 mg IV Q2H PRN PRN PRN Reason: Pain Score 4-10 Nitroglycerin (Nitroglycerin (Inpatient Use) 0.4 Mg Tab.Subl) 0.4 mg SUBLINGUAL Q5M PRN PRN Reason: chest pain Ondansetron HCl (Ondansetron 4 Mg/2 Ml Vial) 4 mg IV Q6H PRN PRN PRN Reason: NAUSEA/VOMITING Last Admin: 07/23/20 04:55 Dose: 4 mg Documented by: [facility] Last Admin: 07/25/20 09:49 Dose: Not Given Documented by: Promethazine HCl (Promethazine 25 Mg/Ml Syringe) 12.5 mg IV Q6H PRN PRN PRN Reason: NAUSEA/VOMITING Sodium Chloride (0.9% Saline Lock 10 Ml Syringe) 10 - 40 ml IV UD PRN PRN Reason: SALINE FLUSH Last Admin: 07/23/20 04:55 Dose: 10 ml Documented by: Medical Necessity - Tobacco Use Smoking Status: Former smoker Assessment/Plan All Active Problems (Last Reviewed 03/19/20 @ 11:07 by Chyna Tomlinson) SBO (small bowel obstruction) (Acute) 85-year-old male status post small bowel obstruction release Patient is doing well and I will discharge him home. I advised him to take a so ft diet on discharge. Brijesh Landeros MD Pager: [facility] [address] [place] [address], [address] [place] [address] Office:
--- NOTE | 2020-07-26 07:14 | PCM.DC.SUM ---
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 Diffuse fatty position of the liver. Splenomegaly. Right renal cyst. Electronically Signed: Niko Diaz, at 13:56 EDT , Service support , Operations: - - Laparoscopic takedown of adhesion Summary of Care Provided: The patient is a 85 year old M presented with left lower quadrant pain and nausea and vomiting. CT scan suggested small bowel striction. The patient was taken for laparoscopic exploration and he had an adhesion in the left lower quadrant causing a bowel obstruction. This was released and the bowel was felt to be viable. The patient was admitted and the following day he appeared to be doing better. The day after that he was started on clear liquid diet and slowly advance. Once he was tolerating regular diet he was discharged home in stable condition. Patient Problems: Active and Suspected Problems (Last Reviewed 03/19/20 @ 11:07 by Chyna Tomlinson) SBO (small bowel obstruction) (Acute) - Physical Exam Vitals/I&O's: Vital Signs Temp Pulse Resp BP Pulse Ox 97.2 F L 64 18 145/70 H 93 07/26/20 06:15 07/26/20 06:15 07/26/20 06:15 07/26/20 06:15 07/26/20 06:37 Oxygen Flow Rate (L/min) 1 Oxygen Delivery Method Nasal Cannula Weight: 176 lb 12.972 oz Body Mass Index (BMI) 28.5 Intake and Output for Last 24 Hours 07/24/20 07/25/20 07/26/20 23:59 23:59 23:59 Intake Total 3000.00 / 3000.00 2210.00 / 2210.00 Output Total 1150 / 1500 1450 / 1450 Balance 1850.00 / 1500.00 760.00 / 760.00 Current Medications Abiraterone Acetate (Abiraterone Acetate 250 Mg Tablet) 1,000 mg PO DAILY [facility] Last Admin: 07/25/20 09:50 Dose: Not Given Documented by: Amlodipine Besylate (Amlodipine 5 Mg Tablet) 5 mg PO DAILY [facility] Last Admin: 07/25/20 09:50 Dose: Not Given Documented by: Lactated Ringer's () 1,000 mls @ 40 mls/hr IV .Q25H [facility] Last Admin: 07/26/20 02:01 Dose: Not Given Documented by: Pantoprazole Sodium 40 mg/ (Sodium Chloride) 110 mls @ 330 mls/hr IV Q24 [facility] Last Infusion: 07/25/20 09:12 Dose: Infused Documented by: Sodium Chloride () 250 mls @ 15 mls/hr IV .[id number] PRN PRN Reason: Saline Flush Sodium Chloride () 250 mls @ 15 mls/hr IV .[id number] PRN PRN Reason: Additional IVPB Infusion Losartan Potassium (Losartan Potassium 100 Mg Tablet) 100 mg PO DAILY [facility] Last Admin: 07/25/20 09:49 Dose: Not Given Documented by: Morphine Sulfate (Morphine 2 Mg/Ml Syringe) 2 - 4 mg IV Q2H PRN PRN PRN Reason: Pain Score 4-10 Last Admin: 07/23/20 02:04 Dose: 2 mg Documented by: Morphine Sulfate (Morphine 4 Mg/Ml Syringe) 2 - 4 mg IV Q2H PRN PRN PRN Reason: Pain Score 4-10 Nitroglycerin (Nitroglycerin (Inpatient Use) 0.4 Mg Tab.Subl) 0.4 mg SUBLINGUAL Q5M PRN PRN Reason: chest pain Ondansetron HCl (Ondansetron 4 Mg/2 Ml Vial) 4 mg IV Q6H PRN PRN PRN Reason: NAUSEA/VOMITING Last Admin: 07/23/20 04:55 Dose: 4 mg Documented by: [facility] Last Admin: 07/25/20 09:49 Dose: Not Given Documented by: Promethazine HCl (Promethazine 25 Mg/Ml Syringe) 12.5 mg IV Q6H PRN PRN PRN Reason: NAUSEA/VOMITING Sodium Chloride (0.9% Saline Lock 10 Ml Syringe) 10 - 40 ml IV UD PRN PRN Reason: SALINE FLUSH Last Admin: 07/23/20 04:55 Dose: 10 ml Documented by: Discharge Activity: May Drive, May Shower Call your doctor if your incision/area has: Continuous Slow Oozing, Sudden Increased Bleeding, Increased Pain/ Swelling, Increased Redness, Foul Smelling Discharge, Swelling at the incision site Call your doctor if you observe: Fever of 101 or Higher Change Dressing in (Days):: 1 Cleanse incision/area with: Soap & Water Home Medications: Medications to take at Discharge Aspirin [Aspirin, Baby] 81 mg PO DAILY@0800 04/25/15 Folic Acid 1 mg PO DAILY@0803/16/17 abiraterone 250 mg tablet 1,000 mg PO DAILY 02/14/19 nitroglycerin 0.4 mg sublingual tablet 0.4 mg SUBLINGUAL Q5-15M PRN 02/14/19 prednisone 5 mg tablet 5 mg PO DAILY 02/14/19 losartan 100 mg tablet 100 mg PO DAILY 02/21/19 cyanocobalamin (vitamin B-12) 1,000 mcg/mL injection kit 100 mcg IM QMONTH 07/13/19 potassium chloride 20 mEq tablet,extended release 20 meq PO DAILY 07/13/19 cholecalciferol (vitamin D3) 25 mcg (1,000 unit) capsule 2,000 unit PO DAILY cap 03/19/20 Amlodipine [Norvasc] 5 mg PO DAILY 07/22/20 Primary Care Physician: Rolanda Giraldo MD [Primary Care Provider] - Please Follow Up With: Brijesh Landeros MD When: Please call to schedule 2 week follow up appointment. [phone] Medical Necessity - Tobacco Use Smoking Status: Former smoker Meaningful Use Info Meaningful Use Diagnoses (Choose all that apply): None applicable
[2020-07-26] MEDS: ABIRATERONE ACETATE 250 MG TABLET 1000 MG PO (07:59)
[2020-07-26] MEDS: predniSONE 5 MG Tablet PO (09:23)
--- NOTE | 2020-07-29 16:01 | CASEMGMT ---
RICHELLE SANDOVAL Discharge Follow-up Phone Call: FLAVIOCammy: Alexsander Strata: 3 Call Date: 07/29/20 Discharge Date: 07/26/2020 Time of Call: 1600 Duration: 2 min Admitting Diagnosis: SBO RICHELLE SANDOVAL completed follow-up phone call after recent hospitalization. Patient states he is doing well and having bowel movements once daily. Patient had no questions or concerns regarding discharge instructions. Patient is aware of follow-up appt with Dr. Landeros on 08/12. Patient has no further questions or concerns at this time.
== END 2020-07-26 10:27 | disposition home or self-care (01) | DRG 336 ==
LOC: ED 14:51 → MS3 07-23 06:58
PROVIDERS: Admitting Provider Surgery; Emergency Provider Emergency Medicine; PCP Internal Medicine; Visit Provider Surgery
PROC: 0DNV4ZZ Release Mesentery, Percutaneous Endoscopic Approach (ICD-10-PCS; CPT 49320; principal; 2020-07-22 14:40)
DX: K56.50 Intestinal adhesions [bands], unspecified as to partial versus complete obstruction (principal); K55.9 Vascular disorder of intestine, unspecified; I25.10 Atherosclerotic heart disease of native coronary artery without angina pectoris; I10 Essential (primary) hypertension; E78.5 Hyperlipidemia, unspecified; F41.9 Anxiety disorder, unspecified; E66.9 Obesity, unspecified; Z68.28 Body mass index [BMI] 28.0-28.9, adult; Z79.82 Long term (current) use of aspirin; Z79.899 Other long term (current) drug therapy; Z87.891 Personal history of nicotine dependence; Z85.118 Personal history of other malignant neoplasm of bronchus and lung; Z85.51 Personal history of malignant neoplasm of bladder; Z85.46 Personal history of malignant neoplasm of prostate; Z95.5 Presence of coronary angioplasty implant and graft
CPT/HCPCS: 36415; 74177; 80048; 80076; 83605; 83690; 85025; 93005; 99285; J7120; Q9967; A4216; J2405

== ENCOUNTER 2021-01-23 11:42 | Outpatient (RCR) | payer MEDICARE, SELFPAY ==
[2021-01-17 11:05] VITALS: BMI 29.9
== END 2021-03-04 23:59 ==
LOC: IMMUN 11:42
PROVIDERS: PCP Internal Medicine; Visit Provider Family Medicine
DX: Z23 Encounter for immunization (principal)
CPT/HCPCS: 0001A; 0002A; 91300

== ENCOUNTER 2021-02-07 04:46 | Emergency (ER) | payer MEDICARE, SELFPAY ==
[2021-01-17 11:05] VITALS: BMI 29.9
[2021-02-07 04:52] VITALS: BP 171/71; PULSE 62; RESP 16; TEMP 36.4; O2SAT 95; BMI 28.4
[2021-02-07 05:01] VITALS: BP 155/74
--- NOTE | 2021-02-07 05:12 | EX.ED.DYSGE1 ---
HPI History of Present Illness Chief Complaint: GI Bleed Informant: patient Onset/Context/Timing Onset: Today Timing: Intermittent (twice) Quality: BRBPR Current Severity: Gone Maximum Severity: Mild (small amount of blood) Worsened by: unk Relieved by: nothing in particular Associated Symptoms Associated Symptoms: a little lightheaded once earlier Narrative Narrative: Patient is on a baby aspirin a day, no anticoagulation, he had bladder tumors resected at a hospital in [place] 5 or 6 days ago, initially had some hematuria but that cleared and now he is urinating without blood. Initially was constipated, then that cleared and he was having some loose nonbloody stool, and then tonight he had a couple small amounts of blood come out. His son confirms that he was bearing down quite a bit with all of his bowel movements. He does not have a history of colitis but he did have a bowel obstruction that he required surgery for that was done here in the past, maybe 3 years ago. He denies any chest pain, abdominal pain, nausea, vomiting, shortness of breath. [facility] Medical History (Updated 02/07/21 @ 05:[address] 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 Home Medications aspirin 81 mg PO DAILY@0800 04/25/15 [History Last Taken 07/21/20] folic acid 1 mg PO DAILY@0800 03/16/17 [History Last Taken 07/21/20] abiraterone 250 mg tablet 1,000 mg PO DAILY 02/14/19 [History Last Taken 07/22/20] prednisone 5 mg tablet 5 mg PO DAILY 02/14/19 [History Last Taken 07/22/20] losartan 100 mg tablet 100 mg PO DAILY 02/21/19 [History Last Taken 07/21/20] potassium chloride 20 mEq tablet,extended release 20 meq PO DAILY 07/13/19 [History Last Taken 07/21/20] cholecalciferol (vitamin D3) 25 mcg (1,000 unit) capsule 2,000 unit PO DAILY cap 03/19/20 [History Last Taken Unknown] amlodipine 5 mg PO DAILY 07/22/20 [History Last Taken 07/21/20] nitroglycerin 0.4 mg sublingual tablet 0.4 mg SUBLINGUAL Q5-15M PRN #25 tablet 01/17/21 [Rx Last Taken Unknown] calcium citrate [Citracal] 200 mg PO DAILY 02/07/21 [History Last Taken Unknown] hydrocortisone-pramoxine [Proctofoam HC] 1 applic MA DAILY PRN 7 Days #10 g 02/07/21 [Rx Last Taken Unknown] pjywbmuj-mhn-UM-lycopen-lutein [Centrum Silver Men] 1 tab PO DAILY 02/07/21 [History Last Taken Unknown] Allergy/AdvReac Type Severity Reaction Status Date / Time amoxicillin AdvReac GI upset Verified 02/07/21 04:58 lisinopril AdvReac COUGH Verified 02/07/21 04:58 Family History Mother Heart disease Type not listed Father CAD (coronary artery disease) Brother Hypertension Surgical History History of appendectomy History of colonoscopy History of left inguinal hernia repair History of sigmoidoscopy (03/19/17) History of tonsillectomy History of transurethral resection of prostate (2001) S/P pneumonectomy (02/21/14) Status post cataract extraction and insertion of intraocular lens of right eye Stented coronary artery (09/12/13) Social History Smoking Status: Current every day smoker how long ago did patient quit smokin years ago alcohol intake: never substance use type: does not use caffeine: Yes Type: carbonated beverages and coffee Number of servings: 1 ROS ROS ED Constitutional Constitutional ED: Denies chills or fever(s) Eyes Eyes: Denies change in vision or diplopia ENT ENT ED: Denies rhinorrhea or sore throat Cardiovascular Cardiovascular: Denies chest pain or palpitations Respiratory/Chest Respiratory/Chest: Denies cough or dyspnea Gastrointestinal Gastrointestinal: Reports as per HPI and diarrhea; Denies abdominal pain, nausea or vomiting Genitourinary Genitourinary ED: Denies dysuria or hematuria Musculoskeletal Musculoskeletal: Denies back pain or neck pain Integumentary Denies abscess or rash Neurologic Neurologic: Denies headache(s), paresthesias or weakness Psychiatric Psychiatric: Denies anxiety or suicidal thoughts EXAM Physical Exam Const Vital Signs: 02/07/21 04:52 02/07/21 05:01 Temperature 97.6 F L Temperature Source Temporal Pulse Rate 62 Respiratory Rate 16 Blood Pressure 171/71 H 155/74 H Blood Pressure Mean 104 101 Pulse Ox 95 Oxygen Delivery Method Room Air Positive well nourished and well developed General Appearance ED: well developed and NAD HEENT Reports moist mucous membranes normocephalic and atraumatic Eyes PERRL and EOMs intact bilaterally Neck full ROM and supple Resp normal respiratory effort and clear to auscultation bilaterally Cardio regular rate, regular rhythm and no murmurs Rate: Negative for tachycardic GI non-tender and non-distended GI Narrative: Several benign-appearing chronic hemorrhoids externally without evidence of active bleeding, tenderness, thrombosis, or recent bleeding. On digital rectal exam, there is no gross blood present, a scant amount of yellow stool. No mass or tenderness. Auscultation: normoactive bowel sounds Palpation: soft Rectal Exam: normal sphincter tone; Negative for tenderness Back/Spine no CVA tenderness General Back: other FROM Extremity normal to inspection General Extremety ED: Negative for edema, pulses abnormal or tenderness General Extremity: Negative for edema or pulses abnormal Neuro oriented x3, CN's II-XII intact bilaterally and no sensory deficits noted Sensorium / Orientation: awake and alert Motor Exam: strength 5/5 throughout Skin no rashes or lesions noted and no wounds MDM MDM MDM Narrative Medical decision making narrative: Patient's vital signs are stable except for mild hypertension, which improved. His labs are stable, including his hemoglobin which is almost 13, actually higher than his reading from last year. His exam is very benign. Hemorrhoids are in the differential as are other sources of lower GI bleeding, but without a significant leukocytosis or abdominal pain, I do not think a CT is necessarily going to be helpful here as I discussed with him and his son. They understand that. He does have a history of diverticulosis, I am unable to rule that out as a potential cause even with CT, however he was not having severe bleeding tonight. We did orthostatics and he was fine there, so I think it would be reasonable to treat him with internal hemorrhoid cream containing hydrocortisone and have him follow-up closely, returning for worsening bleeding. They are comfortable with that plan. Lab Data Attestation: I reviewed the patient's lab results. Labs: Laboratory Results - last 24 hr 02/07/21 02/07/21 05:20 05:20 WBC 7.7 RBC 4.13 L Hgb 12.9 L Hct 39.5 L MCV 95.6 H MCH 31.2 MCHC 32.7 RDW Std Deviation 45.8 H RDW Coeff of David 13.0 Plt Count 235 MPV 12.2 H Immature Gran % (Auto) 0.300 Neut % (Auto) 80.3 H Lymph % (Auto) 7.1 L Desha % (Auto) 9.7 Eos % (Auto) 2.2 Baso % (Auto) 0.4 Absolute Neuts (auto) 6.2 Absolute Lymphs (auto) 0.55 L Nucleated RBC % 0 Sodium 140 Potassium 3.5 Chloride 105 Carbon Dioxide 28.0 Anion Gap 7 BUN 19 H Creatinine 1.02 Estim Creat Clear Calc 48.65 Est GFR (MDRD) Af Amer 89 Est GFR (MDRD) Non-Af 74 BUN/Creatinine Ratio 18.6 Glucose 103 Calcium 9.4 Discharge Plan Triage Chief Complaint: GI Bleed ED Provider: Brijesh Darnell Dx/Rx/DC Orders Clinical Impression: Rectal bleeding Instructions: ED Lower GI Bleeding (Stable) Prescriptions: New Proctofoam HC 1-1 % foam 1 applic MA DAILY PRN (Reason: hemorrhoids) 7 Days Qty: 10 RF: 0 No Action abiraterone [Zytiga] 250 mg tablet 1,000 mg PO DAILY RF: 0 prednisone 5 mg tablet 5 mg PO DAILY RF: 0 losartan 100 mg tablet 100 mg PO DAILY RF: 0 potassium chloride 20 mEq tablet extended release 20 meq PO DAILY RF: 0 nitroglycerin 0.4 mg tablet, sublingual 0.4 mg SUBLINGUAL Q5-15M PRN (Reason: chest pain) Qty: 25 RF: 3 aspirin 81 MG tablet,chewable 81 mg PO DAILY@0800 RF: 0 folic acid 1 MG tablet 1 mg PO DAILY@0800 RF: 0 cholecalciferol (vitamin D3) 25 mcg (1,000 unit) capsule 2,000 unit PO DAILY RF: 0 amlodipine 5 MG tablet 5 mg PO DAILY RF: 0 Centrum Silver Men 300-600-300 mcg Tablet 1 tab PO DAILY RF: 0 calcium citrate [Citracal] 200 mg (950 mg) Tablet 200 mg PO DAILY RF: 0 Primary Care Provider: Rolanda Giraldo Referrals: Rolanda Giraldo MD [Primary Care Provider] - 3-5 Days Disposition Disposition: Home, self care
[2021-02-07 05:29] LABS: Absolute Lymphocyte Count 0.55 X10^3/uL (0.83-4.51); Absolute Neutrophil Count 6.2 X10^3/uL (2.0-7.7); Basophil# 0.03 X10^3/uL; Basophil% 0.4 % (0-1); Eosinophil# 0.17 X10^3/uL; Eosinophils% 2.2 % (0-5); Hematocrit 39.5 % (40-54); Hemoglobin 12.9 g/dL (13.0-16.5); Lymphocyte # 0.55 X10^3/ul (0.83-4.51); Lymphocyte % 7.1 % (19-41); Mean Corp Hgb Conc 32.7 g/dL (32-36); Mean Corpuscular Hgb 31.2 pg (27.0-32.0); Mean Corpuscular Volume 95.6 fL (80-94); Mean Platelet Vol. 12.2 fl (6.2-12.0); Monocyte# 0.75 X10^3/uL; Monocyte% 9.7 % (0-10); NRBC Flagged by Analyzer 0 % (0-5); Neutrophil # 6.19 X10^3/uL (2.7-7.7); Neutrophil % 80.3 % (47-70); POSITIVE DIFFERENTIAL YES; POSITIVE MORPHOLOGY YES; Platelet Count 235 K/mm3 (150-450); RBC Distribution Width SD 45.8 fl (35.1-43.9); Red Blood Count 4.13 M/mm3 (4.6-6.2); White Blood Count 7.7 K/mm3 (4.4-11.0)
[2021-02-07 05:32] LABS: Differential Indicated SCAN CRITERIA MET
[2021-02-07 05:43] LABS: Anion Gap 7 (5-15); BUN 19 mg/dL (7-18); BUN/Creat Ratio 18.6 RATIO (10-20); Calcium,Total 9.4 mg/dL (8.5-10.1); Chloride 105 mmol/L (98-107); Creatinine, Serum 1.02 mg/dL (0.70-1.30); EST Glomerular Filtration Rate 74 mL/min (>60); Est Glom Filt Rate - Afr Amer 89 mL/min (>60); Estimated Creatinine Clearance 48.65 ml/min; Glucose 103 mg/dL (74-106); Potassium 3.5 mmol/L (3.5-5.1); Sodium Level 140 mmol/L (136-145)
[2021-02-07 06:07] VITALS: BP 147/74; BP 152/80; BP 158/71; PULSE 64; PULSE 65; PULSE 81
[2021-02-07 06:20] LABS: Differential Comment SCANNED
[2021-02-07 06:27] VITALS: BP 147/74; PULSE 65; RESP 18; O2SAT 97
== END 2021-02-07 06:28 | disposition home or self-care (01) ==
PROVIDERS: Emergency Provider Emergency Medicine; PCP Internal Medicine
DX: K62.5 Hemorrhage of anus and rectum (principal); K64.9 Unspecified hemorrhoids; I25.10 Atherosclerotic heart disease of native coronary artery without angina pectoris; I10 Essential (primary) hypertension; E78.5 Hyperlipidemia, unspecified; F41.9 Anxiety disorder, unspecified; E66.9 Obesity, unspecified; Z79.82 Long term (current) use of aspirin; Z79.52 Long term (current) use of systemic steroids; Z79.899 Other long term (current) drug therapy; Z85.46 Personal history of malignant neoplasm of prostate; Z85.118 Personal history of other malignant neoplasm of bronchus and lung; Z87.19 Personal history of other diseases of the digestive system; Z87.891 Personal history of nicotine dependence
CPT/HCPCS: 80048; 85025; 99283; A4216

== ENCOUNTER → 2022-08-31 | Outpatient (CLI) | payer MEDICARE, SELFPAY ==
--- NOTE | 2022-08-31 07:15 | ECHOD_ITS ---
Reason For Study: CAD Procedure This was a 2D Doppler, Color Flow transthoracic echocardiogram. The study was technically difficult. Exam performed in department. Left Ventricle Normal LV size. Left ventricular systolic function is normal. The estimated ejection fraction is 70 %. No evidence for diastolic dysfunction. No regional wall motion abnormalities noted. Right Ventricle Normal RV size. Normal systolic function. Atria The left atrium is mildly enlarged. Normal right atrium. No doppler evidence for ASD. Mitral Valve There is no mitral annular calcification. Normal mitral valve. Mild (1+) eccentric mitral valve insufficiency. Tricuspid Valve Normal tricuspid valve. Aortic Valve Trisinus/trileaflet aortic valve. Moderate focal aortic valve calcification. Pulmonic Valve The pulmonic valve is not well visualized. Great Vessels Normal sized aortic root. Pericardium/Pleural No pericardial effusion. MMode/2D Measurements & Calculations LVIDd: 3.7 cm IVSd: 1.4 cm Ao root diam: 3.4 cm LVIDs: 2.0 cm LVPWd: 1.1 cm RVDd: 3.5 cm FS: 47.5 % LAV(MOD-bp): 50.8 ml LVAd ap4: 30.5 cm2 LVAd ap2: 24.4 cm2 LAV(MOD-bp) Indexed: 27.4 ml/m2 LVLd ap4: 8.5 cm LVLd ap2: 8.5 cm LAV(MOD-sp2): 60.3 ml EDV(MOD-sp4): 88.9 ml EDV(MOD-sp2): 58.1 ml LAV(MOD-sp4): 41.3 ml EDV(sp4-el): 92.8 ml EDV(sp2-el): 59.2 ml LVAs ap4: 16.0 cm2 LVAs ap2: 12.1 cm2 LVLs ap4: 7.5 cm LVLs ap2: 7.4 cm ESV(MOD-sp4): 30.2 ml ESV(MOD-sp2): 16.6 ml ESV(sp4-el): 29.0 ml ESV(sp2-el): 16.7 ml EF(MOD-sp4): 66.1 % EF(MOD-sp2): 71.4 % EF(sp4-el): 68.8 % SV(MOD-sp4): 58.8 ml SV(MOD-sp2): 41.5 ml SV(sp4-el): 63.8 ml LA dimension(2D): 4.0 cm LA A4 area: 16.7 cm2 RA A4 area: 12.0 cm2 Time Measurements MV dec time: 0.27 sec Doppler Measurements & Calculations MV E max michael: 57.7 cm/sec Lat Peak E' Michael: 11.5 cm/sec Med Peak E' Michael: 7.6 cm/sec MV A max michael: 85.1 cm/sec E/E' lat: 5.0 E/E' med: 7.6 MV E/A: 0.68 MV dec slope: 212.8 cm/sec2 Ao V2 max: 149.8 cm/sec LV V1 max: 95.0 cm/sec Ao max P.0 mmHg LV V1 max P.6 mmHg PA V2 max: 117.2 cm/sec ECHO/Echo Complete Interpretation Summary The study was technically difficult. Left ventricular systolic function is normal. The estimated ejection fraction is 70 %. The left atrium is mildly enlarged. Mild (1+) eccentric mitral valve insufficiency. Moderate focal aortic valve calcification. No evidence for diastolic dysfunction. Ordering Physician: Isaias Prather Referring Physician: Rolanda Giraldo Performed By: Alycia Ramirez, CURT
--- NOTE | 2022-08-31 09:02 | STRESSREP_ITS ---
Stress Test Report Date: 08-31-2022 Procedure: Pharmacologic stress nuclear imaging study Indications: CAD, status post PCI; preoperative cardiovascular evaluation Consent: Per the patient Procedure: The patient underwent pharmacologic (Regadenoson 0.4mg ) evaluation with a peak heart rate of 114 beats per minute (85%predicted maximal heart rate) and a re sting blood pressure of 126/68 mmHg and a peak blood pressure of 130/70 mmHg. The baseline ECG demonstrated normal sinus rhythm; occasional PVCs. The peak pharmacologic ECG demonstrated no obvious ECG changes. There were occasional PVCs pretest, during pharmacologic infusion, and recovery. There was no complaint of chest discomfort during pharmacologic infusion or recovery. The examination was discontinued secondary to completion of protocol. Impression: 1. Pharmacologic (Regadenoson) evaluation 2. Peak pharmacologic ECG with no obvious ECG changes. 3. There were occasional PVCs during pretest, during pharmacologic infusion, and recovery. 4. Nuclear images pending Myocardial perfusion imaging study: Technique: The patient was injected with 11.9 millicuries of technetium 99m Cardiolite and subsequently rest SPECT Cardiolite nuclear imaging was obtained in the horizontal long, vertical long, and short axis views. The patient underwent pharmacologic (Regadenoson) evaluation with a peak heart rate of 114 beats per minute (85% percent predicted maximal heart rate) and a resting blood pressure of 126/68 mmHg and a peak blood pressure of 130/70 mmHg. The patient was injected with 34.2 millicuries of technetium 99m Cardiolite and subsequently stress SPECT Cardiolite nuclear imaging was obtained in the horizontal long, vertical long, and short axis views. A gated Cardiolite study at peak stress was obtained. Interpretation: Rest and stress SPECT Cardiolite nuclear imaging status post realignment, normalization, and attenuation correction demonstrate at rest the appearance of a small area of diminished myocardial perfusion/tracer uptake in the distal anteroseptal/septal apical segments which appears to normalize following stress. There is end systolic thickening and brightening. The gated Cardiolite study demonstrates myocardial thickening and inward wall motion. The reported LVEF is 71%. Impression: 1. Rest and stress SPECT Cardiolite nuclear imaging demonstrate myocardial perfusion changes at rest which appear to improve/normalize following stress appearing compatible with shifting soft tissue attenuation/artifact with no myocardial perfusion changes considered diagnostic for associated stress-induced myocardial ischemia. 2. The gated Cardiolite study reports an LVEF of 71%. This note was generated with [employer] software. It may contain incorrect words, spelling, and punctuation that were not noted in checking the note before signing.
== END | disposition home or self-care (01) ==
LOC: CVS 07:14
PROVIDERS: PCP Internal Medicine; Visit Provider Internal Medicine Cardiovascular Disease
DX: Z01.810 Encounter for preprocedural cardiovascular examination (principal); R06.09 Other forms of dyspnea; I10 Essential (primary) hypertension; I25.10 Atherosclerotic heart disease of native coronary artery without angina pectoris; Z95.5 Presence of coronary angioplasty implant and graft
CPT/HCPCS: 78452; 93017; 93306; A9500; A4216; J2785

== ENCOUNTER 2025-05-12 07:25 | Emergency (ER) | payer MEDICARE, SELFPAY ==
[2025-05-12 07:25] VITALS: BP 147/67; PULSE 68; RESP 16; TEMP 36.8; O2SAT 98; BMI 25.4
[2025-05-12 07:26] VITALS: BP 138/78; PULSE 70; RESP 18; TEMP 36.8; O2SAT 98
--- NOTE | 2025-05-12 07:39 | EX.ED.DYSGE1 ---
HPI History of Present Illness Chief Complaint: Complaint Detail of Chief Complaint: Painless gross hematuria Informant: patient and family Onset/Context/Timing Onset: Today, Yesterday (Persistent since yesterday) and Month(s) (Intermittent over the past couple of months) Context: Sudden Onset Timing: Continuous and Intermittent Quality: Painless gross hematuria Location: Current Severity: Moderate Maximum Severity: Moderate Worsened by: Unknown Relieved by: Nothing Associated Symptoms Associated Symptoms: None Narrative Narrative: Patient is an 89-year-old male. He has history of prostate cancer diagnosed 20 to 25 years ago who had cesium implants. 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 There is documentation of metastasis to the bone. Patient nor son are aware of this. He has had intermittent painless gross hematuria that started a couple to several months ago. He states he would urinate blood and it would go away. Since yesterday he has urinated blood it is not gone away. This prompted him to come to the emergency room. He has seen Dr. Crow Toro urologist for [facility]. He is not able to see him until July. For this reason his PCP made arrangements for him to be seen by a urologist at [facility]. Patient denies fever or chills. Patient denies night sweats or weight loss. He denies abdominal pain or fullness. He denies bone pain. 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 He also has history of basal cell carcinoma and had a benign neoplasm of the colon. 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 Bladder cancer Lung cancer Obesity (BMI 30.0-34.9) Anxiety Home Medications ?Medication ?Instructions ?Recorded ?Last Taken ?Type aspirin 81 mg chewable tablet 81 mg PO DAILY@0800 04/25/15 05/11/25 History folic acid 1 mg tablet 1 mg PO DAILY@0800 03/16/17 05/11/25 History losartan 100 mg tablet 100 mg PO DAILY 02/21/19 05/11/25 History amlodipine 5 mg tablet 5 mg PO DAILY 07/22/20 05/11/25 History nitroglycerin 0.4 mg sublingual 0.4 mg sublingual Q5-15M PRN chest 01/17/21 Unknown Rx tablet pain #25 tabs abalfcjy-fh-fnyad 300 mcg-K 60 1 tab PO DAILY 02/07/21 05/11/25 History mcg-lycop 600 mcg-lutein 300 mcg tablet (Centrum Silver Men) enzalutamide 40 mg capsule (Xtandi) 80 mg PO DAILY 08/17/23 05/11/25 History fluoxetine 20 mg capsule 20 mg PO QDAY 09/29/24 05/11/25 History calcium citrate 250 mg PO DAILY 05/12/25 05/11/25 History spironolactone 25 mg tablet 25 mg PO DAILY 05/12/25 05/11/25 History Allergy/AdvReac Type Severity Reaction Status Date / Time amoxicillin AdvReac GI upset Verified 05/12/25 07:34 lisinopril AdvReac COUGH Verified 05/12/25 07:34 Family History Mother Heart disease Type not listed Father CAD (coronary artery disease) Brother Hypertension Surgical History History of basal cell carcinoma History of transurethral resection of prostate (2001) History of sigmoidoscopy (03/19/17) History of left inguinal hernia repair History of tonsillectomy History of colonoscopy Status post cataract extraction and insertion of intraocular lens of right eye History of appendectomy Stented coronary artery (09/12/13) S/P pneumonectomy (02/21/14) Social History Smoking Status: Former smoker quit date: 09/27/1964 pack-years: 12 how long ago did patient quit smokin years ago alcohol intake: never substance use type: does not use caffeine: Yes Type: carbonated beverages and coffee Number of servings: 1 ROS ROS ED Constitutional Constitutional ED: Denies chills, fever(s), subjective, sweats or weight loss Eyes Eyes: Denies blurry vision or change in vision ENT ENT ED: Denies rhinorrhea or sore throat Cardiovascular Cardiovascular: Denies chest pain, orthopnea or palpitations Respiratory/Chest Respiratory/Chest: Denies cough, dyspnea, dyspnea on exertion or orthopnea Gastrointestinal Gastrointestinal: Denies abdominal pain, constipation, nausea or vomiting Genitourinary Genitourinary ED: Reports hematuria; Denies dysuria or urinary frequency Musculoskeletal Musculoskeletal: Denies arthralgias, back pain or myalgias Integumentary Denies rash Neurologic Neurologic: Denies paresthesias or weakness Hematologic/Lymphatic Hematologic/Lymphatic: Reports systems reviewed and no addt'l complaints, except as documented EXAM Physical Exam Const Vital Signs: 05/12/25 07:25 05/12/25 07:26 Temperature 98.3 F 98.3 F Temperature Source Oral Oral Pulse Rate 68 70 Respiratory Rate 16 18 Blood Pressure 147/67 H 138/78 H Blood Pressure Mean 93 98 Pulse Ox 98 98 Oxygen Delivery Method Room Air Room Air Positive well nourished and well developed General Appearance ED: well developed and NAD; Negative for cyanotic, diaphoretic or pallor HEENT Reports moist mucous membranes HEENT Narrative: Patient has poor dentition. Head is atraumatic normocephalic. Ears are normal. Eyes PERRL and EOMs intact bilaterally General Eye ED: Negative for pale conjunctiva or scleral icterus Neck no lymphadenopathy, supple and no JVD Resp normal respiratory effort and clear to auscultation bilaterally Cardio regular rate, regular rhythm, S1 normal heart sound, S2 normal heart sound and no murmurs GI normal to inspection, nondistended, normoactive bowel sounds, non-tender, non-distended and no masses; Negative for hepatosplenomegaly Palpation: soft Back/Spine no CVA tenderness Extremity normal to inspection General Extremety ED: Negative for tenderness Neuro oriented x3 and CN's II-XII intact bilaterally Sensorium / Orientation: alert Psych mental status grossly normal Skin no rashes or lesions noted, no wounds and skin turgor normal General Skin Exam: Negative for elasticity normal, jaundice or pallor MDM MDM MDM Narrative Medical decision making narrative: Patient with gross painless hematuria need to evaluate for malignancy. Will obtain CBC to assess H&H as well as white count. Comprehensive metabolic panel to assess renal function prior to CT with IV contrast, calcium since she has history of bone mets, liver enzymes and a UA. Patient is not a good informant. Based on this operative note he has history of bladder tumors. He did not inform me of this nor was there any mention of this on Dr. Giraldo's report. History & Record Review Additional record(s) reviewed:: Prior outpatient record (Dr. Craig's office notes from most recent visit.), Prior labs and Other (Note authored by Dr. Crow Toro. Note is a urology operative/procedure report. Patient underwent rigid cystoscopy excision bladder tumor medium 2.0 cm to 5.0 cm. The note was created March 17, 2022.) Lab Data Attestation: I reviewed the patient's lab results. Lab results narrative: CBC is unremarkable. Urine macro reveals cloudy brown-colored urine with protein, ketones and occult blood. Microscopic pending Labs: Laboratory Results - last 24 hr 05/12/25 05/12/25 07:45 07:53 WBC 10.8 RBC 5.35 Hgb 15.7 Hct 48.0 MCV 89.7 MCH 29.3 MCHC 32.7 RDW Std Deviation 50.1 H RDW Coeff of David 15.2 H Plt Count 463 H MPV 10.7 Immature Gran % (Auto) 1.200 H Neut % (Auto) 81.4 H Lymph % (Auto) 7.8 L Banner % (Auto) 7.7 Eos % (Auto) 1.3 Baso % (Auto) 0.6 Absolute Neuts (auto) 8.8 H Absolute Lymphs (auto) 0.84 Nucleated RBC % 0 Urine Color Brown Urine Clarity Cloudy Urine pH 7.0 Ur Specific [place] 1.010 Urine Protein 100 H Urine Glucose (UA) Normal Urine Ketones 5 H Urine Occult Blood 250 H Urine Nitrite Negative Urine Bilirubin Negative Urine Urobilinogen Normal Ur Leukocyte Esterase 100 H Urine RBC > 100 SEEN Urine WBC 0 SEEN Ur Squamous Epith Cells 0 SEEN Urine Bacteria 0 SEEN Urine Mucus 0 SEEN Radiography Diagnostic Testing: Clinical Impression(s) from Imaging Studies Abdomen/Pelvis CT 05/12/25 08:00 IMPRESSION: Severe right hydronephrosis. Thinning of the right renal cortex. Asymmetric wall thickening of the proximal right ureter measuring 1 cm at L5 level. Suspicious asymmetric wall thickening of the right bladder. No ureteral stones or nephrolithiasis. These findings are suspicious for transitional cell carcinoma. Hepatosplenomegaly. Reading Location: [facility] CT of the abdomen with IV contrast reveals what appears to be an enlarged spleen with a infarct. This appears to be old. There is also a very cystic abnormal appearing right kidney. There also appears to be hydronephrosis or hydroureter. I do not appreciate a stone. There may be stenosis of the distal ureter. Patient has significant atherosclerotic disease. There is no abnormality noted in the liver. Nonspecific gas pattern noted as well. Awaiting formal read by radiologist, 808 Treatment and Re-Evaluation :: Patient and son were informed of the radiologist interpretation and concerns. Patient and son were informed to contact the urologist at [facility]. Radiology was contacted and images were sent to [facility] so that his urologist will be able to look at those images. 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, Transitional cell carcinoma, Bladder wall thickening, Coronary artery disease Instructions: ED Hematuria, ED Urethral Stricture Prescriptions: No Action losartan 100 mg tablet 100 mg PO DAILY nitroglycerin 0.4 mg tablet, sublingual 0.4 mg SUBLINGUAL Q5-15M PRN (Reason: chest pain) Qty: 25 3RF Xtandi 40 mg capsule 80 mg PO DAILY fluoxetine 20 mg capsule 20 mg PO QDAY aspirin 81 MG tablet,chewable 81 mg PO DAILY@0800 Patient Comments: heart health folic acid 1 MG tablet 1 mg PO DAILY@0800 amlodipine 5 MG tablet 5 mg PO DAILY Centrum Silver Men 300-600-300 mcg Tablet 1 tab PO DAILY spironolactone 25 mg tablet 25 mg PO DAILY calcium citrate 250 mg calcium tablet 250 mg PO DAILY Primary Care Provider: Rolnada Giraldo Referrals: Rolanda Giraldo MD [Primary Care Provider] - Activity Restrictions/Additional Instructions: Keep your scheduled appointment with urologist at [facility] for May 29. Recommend contacting office on Wednesday to have your appointment moved up if at all possible. You may want to contact your primary care physician Dr. Giraldo to help facilitate moving the appointment. The images were sent to [facility] so that the urologist could look at the films. Print Language: Malaysian Disposition Disposition: Home, Self Care
[2025-05-12 07:55] LABS: Mucous, Urine 0 SEEN /hpf (<or=2+); Squamous Epithelial Cells - UA 0 SEEN /hpf (0-5)
[2025-05-12 07:58] LABS: Color, Urine Brown (Yellow); Glucose, Dipstick Normal (Normal); Ketone-Dipstick 5 mg/dl (Negative); Leukocyte Esterase-Dipstick 100 /ul (Negative); Nitrite-Dipstick Negative (Negative); Occult Blood-Urine 250 /ul (Negative); Protein-Dipstick 100 mg/dl (Negative); Specific Gravity, Urine 1.010 (1.002-1.030); Urine Bilirubin Dipstick Negative (Negative)
[2025-05-12 07:59] LABS: Hematocrit 48.0 % (40-54); Hemoglobin 15.7 g/dL (13.0-16.5); Immature Granulocytes Count 0.130 X10^3/uL (0.0-0.0); Mean Corp Hgb Conc 32.7 g/dL (32-36); Mean Corpuscular Volume 89.7 fL (80-94); Mean Platelet Vol. 10.7 fl (6.2-12.0); NRBC Flagged by Analyzer 0 % (0-5); Platelet Count 463 K/mm3 (150-450); RBC Distribution Width CV 15.2 % (11.6-14.6); RBC Distribution Width SD 50.1 fl (35.1-43.9); Red Blood Count 5.35 M/mm3 (4.6-6.2); White Blood Count 10.8 K/mm3 (4.4-11.0)
--- NOTE | 2025-05-12 08:00 | CT_ITS ---
PROCEDURE: ABDOMEN/PELVIS W IV CONT ONLY N/A REASON FOR EXAM: PAINLESS HEMATURIA, HISTORY CA PROSTATE 20+ YEARS TECHNIQUE: ABDOMEN/PELVIS W IV CONT ONLY Coronal and Sagittal reconstruction series were provided. CONTRAST: Isovue 370 VOLUME: 75 mL One or more dose reduction techniques were used (e.g., Automated exposure control, adjustment of the mA and/or kV according to patient size, use of iterative reconstruction technique. RADIATION DOSE SUMMARY: CTDlvol: 5.31 mGy DLP: 592.39 mGycm COMPARISON: CT abdomen and pelvis 07/22/2020 FINDINGS: Lung bases: Atherosclerotic calcifications of the coronary arteries. Liver: Hepatomegaly with the liver measures 20 cm in length. No focal hepatic lesion. Gallbladder: Unremarkable. No biliary dilation. Spleen: Significant splenomegaly measuring up to 15.6 cm. Multiple splenic cysts with the largest measures 2.4 cm. These can be consistent with lymphoceles or epithelial cysst. Pancreas: Unremarkable. Adrenals: Unremarkable. Kidneys: Simple subcentimeter left kidney cysts. Severe right hydronephrosis. Thinning of the right renal cortex. Asymmetric wall thickening of the proximal right ureter measuring 1 cm at L5 level. Suspicious asymmetric wall thickening of the right bladder. No ureteral stones or nephrolithiasis. Bladder: Suspicious asymmetric wall thickening of the right bladder. Reproductive Organs: Unremarkable. Bowel: No bowel wall thickening. No bowel obstruction. Appendix: Unremarkable. Lymph nodes: No lymphadenopathy. Vasculature: Atherosclerotic calcifications. No aneurysm. Peritoneum / Retroperitoneum: No free air or free fluid. Bones: No acute bony abnormalities. CT/Abdomen/Pelvis W IV Cont ONLY IMPRESSION: Severe right hydronephrosis. Thinning of the right renal cortex. Asymmetric w all thickening of the proximal right ureter measuring 1 cm at L5 level. Suspicious asymmetric wall thickening of the right bladder. No ureteral stones or nephrolithiasis. These findings are suspicious for transitional cell carcinoma. Hepatosplenomegaly. Reading Location: [facility]
--- OUTSIDE RECORDS SUMMARY | 2025-05-12 08:05 | XMS RPT_ITS | CCD ---
Author Organization [facility] Care Team Providers Care Diesel Engine Mechanic Name Role Phone ZEE TORO Unavailable Unavailable ZEE TORO Unavailable Unavailable Kya Hinton MD Primary Care Provider Julio RN, Sudha Unavailable Kya Hinton MD Primary Care Provider Julio RN, Sudha Unavailable Julio PEOPLES, Sudha Unavailable Kya Hinton MD Primary Care Provider Julio PEOPLES, Sudha Unavailable Dr. Kya Hinton Primary Care Provider Dr. Kya Hinton Referring Provider Dr. Isaias Prather Attending Provider Haydee Lemus MD Unavailable Kya Hinton MD Primary Care Provider Julio PEOPLES, Sudha Unavailable Elliott Sylvester MD Unavailable Haydee Lemus MD Unavailable Kya Hinton MD Primary Care Provider Rosy Morris PA-C Unavailable [phone] Older BOX BENDER.ACQUISITIONS ASSISTANT, Chel Unavailable Stanley Mckeon PA-C Unavailable Dr. Kya Hinton MD Primary Care Provider Dr. Kya Hinton MD Referring Provider Roof DINKEY OPERATOR SLATE-C, Julio H Attending Provider Ganta, Kya Primary Care Unavailable Ganta, Kya Referring Unavailable Roof DINKEY OPERATOR SLATE, Julio Webster Attending Unavailable Roof DINKEY OPERATOR SLATE, Julio Webster Attending Unavailable Ganta, Kya Primary Care Unavailable Ganta, Kya Referring Unavailable Ganta, Kya Primary Care Unavailable Ganta, Kya Referring Unavailable Matthew Arellano Attending Unavailable GANTA, KYA Primary Care Unavailable ABIGAIL SAAVEDRA Attending Unavailable GHANY, YASHMED Referring Unavailable GANTA, KYA Primary Care Unavailable GANTA, KYA Referring Unavailable GANTA, KAY Primary Care Unavailable ABRAMOVICH, ELLIOTT Referring Unavailable GANTA, KYA Primary Care Unavailable GHANY, YASHMED Referring Unavailable SAAVEDRA, ABIGAIL Attending Unavailable GANTA, KYA Primary Care Unavailable ABRAMOVICH, ELLIOTT Referring Unavailable GANTA, KYA Primary Care Unavailable GANTA, KYA Referring Unavailable THANH GARCIA Attending Unavailable GANTA, KYA Primary Care Unavailable GANTA, KYA Attending Unavailable GANTA, KYA Primary Care Unavailable JULIANA HUITRON Attending Unavailable GANTA, KYA Referring Unavailable GANTA, KYA Primary Care Unavailable STANLEY MCKEON Attending Unavailable ABRAMOVICH, ELLIOTT Referring Unavailable GANTA, KYA Primary Care Unavailable ABRAMOVICH, ELLIOTT Referring Unavailable GANTA, KYA Primary Care Unavailable GANTA, KYA Primary Care Unavailable ABRAMOVICH, ELLIOTT Referring Unavailable GANTA, KYA Primary Care Unavailable JADENNERSTANLEY Referring Unavailable GANTA, KYA Attending Unavailable GANTA, KYA Primary Care Unavailable ABRAMOVICH, ELLIOTT Referring Unavailable GANTA, KYA Primary Care Unavailable CHEL RICH Attending Unavailable GANTA, KYA Primary Care Unavailable GANTA, KYA Referring Unavailable THANH GARCIA Attending Unavailable GANTA, KYA Primary Care Unavailable ABRAMOVICH, ELLIOTT Attending Unavailable GHANY, YASHMED Referring Unavailable GANTA, KYA Primary Care Unavailable ABRAMOVICH, ELLIOTT Attending Unavailable GHANY, AHMED Referring Unavailable ABRAMOVICH, ELLIOTT Referring Unavailable GANTA, KYA Primary Care Unavailable GANTA, KYA Primary Care Unavailable ABRAMOVICH, ELLIOTT Referring Unavailable ABRAMOVICH, ELLIOTT Referring Unavailable GANTA, KYA Primary Care Unavailable Allergies Allergy Classification Reported Allergen(s) Allergy Type Date of Onset Reaction(s) Facility (20 sources) amoxicillin; Translations: [AMOXICILLIN] Drug Allergy 7 Diarrhea, GI Upset [facility] Repository (20 sources) lisinopril; Translations: [LISINOPRIL] Drug Allergy [address] [facility] Repository (12 sources) HMG-CoA reductase inhibitor; Translations: [LUDEQCA-ZMU-LH A REDUCTASE INHIBITORS] Propensity to adverse reactions to drug 1 Other: See Comments [facility] (20 sources) HMG-CoA reductase inhibitor Propensity to adverse reactions to drug 1 Other: See Comments [facility] Medications Current Medications Medication Drug Class(es) Dates Sig (Normalized) Sig (Original) amLODIPine 5 mg oral tablet (20 sources) Dihydropyridine Calcium Channel Ahsan Start: 07-22-2020 End: 10-29-2024 take 1 tablet by mouth once daily amLODIPine (NORVASC) 5 mg tablet Indications: Essential hypertension Take 1 tablet by mouth once daily. 90 tablet 3 10/30/2024 Active Comment on above: Take 1 tablet by [facility] once daily. aspirin 81 mg chewable tablet (20 sources) Platelet Aggregation Inhibitor, Nonsteroidal Anti-inflammatory Drug Start: 04-25-2015 take 1 tablet by mouth once daily aspirin (CHILDRENS ASPIRIN) 81 mg chewable tablet Take 1 tablet by mouth once daily. 0 02/04/2016 Active Comment on above: Take 1 tablet by moiz [facility] once daily. calcium carbonate 1250 mg / cholecalciferol 200 unt oral tablet (4 sources) Vitamin D Start: 02-14-2019 End: 01-08-2022 calcium-carbonate -vitamin D3 500 mg(1,250mg) -200 unit per tablet Calcium Carbonate/Vitamin D3 Active 2 TAB DAILY February 14, 2019 11:13am 0 02/14/2019 01/08/2022 Discontinued Comment on above: Calcium Carbonate/Vi tamin D3 Active 2 TAB DAILY February 14, 2019 11:13am calcium citrate 950 mg oral tablet (20 sources) Start: 02-07-2021 End: 01-08-2022 take 1 tablet by mouth once daily Calcium Citrate (Citracal) 200 mg (950 mg) Tablet Active 200 mg PO DAILY February 07, 2021 12:00am take 1 tablet by mouth once bushra y Calcium Citrate 250 mg calcium tab Take 1 tablet by mouth once daily. Active Comment on above: Take by mouth. Take 1 tablet by moiz [facility] once daily. cholecalciferol 0.025 mg oral capsule (20 sources) Vitamin D Start: 02-27-2020 take 1 capsule by mouth once daily Cholecalciferol, Vitamin D3, (VITAMIN D) 25 mcg (1,000 unit) cap Take 1 capsule by mouth once daily. 100 capsule 2 02/27/2020 Active Start: 07-13-2019 End: 03-19-2020 take 3 capsules by mouth once daily Cholecalciferol (Vitamin D3) 1,000 unit capsule Discontinued 3000 U PO DAILY July 13, 2019 9:43am March 19, 2020 11:15am Start: 07-13-2019 End: 03-19-2020 take 3000 [IU] by mouth once daily Cholecalciferol (Vitamin D3) Discontinued 3000 UNIT PO DAILY July 13, 2019 8:43am March 19, 2020 10:15am Start: 02-14-2019 End: 07-13-2019 take 1 capsule by mouth once daily Cholecalciferol (Vitamin D3) 1,000 unit capsule Discontinued 1000 U PO DAILY February 14, 2019 11:15am July 13, 2019 9:45am Start: 03-16-2017 End: 02-14-2019 take 3 capsules by mouth once daily Cholecalciferol (Vitamin D3) 1,000 UNIT capsule Discontinued 3000 U PO DAILY March 16, 2017 12:00am February 14, 2019 11:15am Start: 03-16-2017 End: 02-14-2019 take 3000 [IU] by mouth once daily Cholecalciferol (Vitamin D3) Discontinued 3000 UNIT PO DAILY March 15, 2017 11:00pm February 14, 2019 10:15am Start: 04-25-2015 End: 02-14-2019 take 3 tablets by mouth once daily Cholecalciferol (Vitamin D3) 1,000 UNIT tablet Discontinued 3000 U PO DAILY April 25, 2015 12:00am February 14, 2019 11:15am Start: 04-25-2015 End: 02-14-2019 take 3000 [IU] by mouth once daily Cholecalciferol (Vitamin D3) Discontinued 3000 UNIT PO DAILY April 24, 2015 11:00pm February 14, 2019 10:15am Comment on above: Take 1 capsule by [facility] once daily. enteric contrast (will be provided with radiology test) (8 sources) Start: 07-09-2021 End: 01-08-2022 enteric contrast (will be provided with radiology test) Indications: Malignant neoplasm of urinary bladder, unspecified site (HCC) , Malignant neoplasm of right ureter (HCC) , BPH with obstruction/lower urinary tract symptoms For CT ABD/PEL W IVCON Routine order Administer, As Directed One Time Only, via Oral, Rectal, both Oral and Rectal, Enteric Tube, Stoma or Indwelling Catheter, Enteric Contrast as designated per enteric contrast guidelines 1 Each 0 07/09/2021 01/08/2022 Discontinued Start: 07-09-[address] (will be provided with radiology test) Indications: Malignant neoplasm of urinary bladder, unspecified site (HCC) , Malignant neoplasm of right ureter (HCC) , BPH with obstruction/lower urinary tract symptoms For CT ABD/PEL W IVCON Routine order Administer, As Directed One Time Only, via Oral, Rectal, both Oral and Rectal, Enteric Tube, Stoma or Indwelling Catheter, Enteric Contrast as designated per enteric contrast guidelines 1 Each 0 07/09/2021 Active Start: 02-26-2021 End: 01-08-2022 enteric contrast (will be pr ovided with radiology test) Indications: 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) , Bladder mass , BPH with obstruction/lower urinary tract symptoms For CT ABD/PEL W IVCON Routine order Administer, As Directed One Time Only, via Oral, Rectal, both Oral and Rectal, Enteric Tube, Stoma or Indwelling Catheter, Enteric Contrast as designated per enteric contrast guidelines 1 Each 0 02/26/2021 01/08/2022 Discontinued Start: 02-26-[address] (will be provided with radiology test) Indications: 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) , Bladder mass , BPH with obstruction/lower urinary tract symptoms For CT ABD/PEL W IVCON Routine order Administer, As Directed One Time Only, via Oral, Rectal, both Oral and Rectal, Enteric Tube, Stoma or Indwelling Catheter, Enteric Contrast as designated per enteric contrast guidelines 1 Each 0 02/26/2021 Active Comment on above: For CT ABD/PEL W IVC ON Routine order Administer, As Directed One Time Only, via Oral, Rectal, both Oral and Rectal, Enteric Tube, Stoma or Indwelling Catheter, Enteric Contrast as designated per enteric contrast guidelines enzalutamide 40 mg oral tablet (20 sources) Androgen Receptor Inhibitor Start: 3 take 1 capsule by mouth once daily Enzalutamide (Xtandi) 40 mg capsule Active 80 mg PO DAILY August 17, 2023 1:00am Start: 07-30-2023 End: 09-30-2025 take 2 tablets by mouth once daily enzalutamide (XTANDI) 40 mg tablet Take 2 tablets (80 mg) by mouth once daily. 60 tablet 11 10/05/2024 09/30/2025 Active Start: 05-13-2023 End: 06-11-2023 take 4 tablets by mouth once daily enzalutamide (XTANDI) 40 mg tablet Take 4 tablets (160 mg) by mouth once daily. Start only after completion of current supply of zytiga 120 tablet 3 05/13/2023 06/11/2023 Discontinued Start: 01-08-2023 End: 12-29-2022 take 4 tablets by mouth once daily enzalutamide (XTANDI) 40 mg tablet Take 4 tablets (160 mg) by mouth once daily. Start only after completion of current supply of zytiga 120 tablet 3 01/08/2023 12/29/2022 Discontinued Start: 01-08-2023 End: 10-09-2023 take 4 tablets by mouth once daily enzalutamide (XTANDI) 40 mg tablet Take 4 tablets (160 mg) by mouth once daily. Start only after completion of current supply of zytiga 120 tablet 3 06/11/2023 07/29/2023 Discontinued Start: 01-08-2023 End: 12-29-2022 take 4 tablets by mouth once daily enzalutamide (XTANDI) 40 mg tablet Take 4 tablets (160 mg) by mouth once daily. Start only after completion of current supply of zytiga 120 tablet 3 01/08/2023 12/29/2022 Discontinued Start: 01-08-2023 End: 12-09-2022 take 4 tablets by mouth once daily enzalutamide (XTANDI) 40 mg tablet Take 4 tablets (160 mg) by mouth once daily. Start only after completion of current supply of zytiga 120 tablet 3 01/08/2023 12/09/2022 Discontinued Start: 01-08-2023 End: 12-09-2022 take 4 tablets by mouth once daily enzalutamide (XTANDI) 40 mg tablet Take 4 tablets (160 mg) by mouth once daily. Start only after completion of current supply of zytiga 120 tablet 3 01/08/2023 12/09/2022 Discontinued Comment on above: Take 4 tablets (160 mg) by mouth once daily. Start only after completion of current supply of zytiga Take 2 tablets (80 m g) by mouth once daily. fluorouracil 50 mg/ml topical cream (1 source) Nucleoside Metabolic Inhibitor Start: Fluorouracil 5 % cream Active [facility] TOP[facility] September 29, 2024 1:00am FLUoxetine 20 mg oral capsule (20 sources) Serotonin Reuptake Inhibitor Start: take 1 capsule by mouth once daily FLUoxetine (PROZAC) 20 mg capsule Take 1 capsule by mouth once daily. 90 capsule 3 11/07/2024 Active Start: 10-17-2024 End: 03-07-2025 take 1 capsule by mouth once daily FLUoxetine (PROZAC) 10 mg capsule Indications: Depression, unspecified depression type Take 1 capsule by mouth once daily. 14 capsule 10/17/2024 03/07/2025 Discontinued Start: 04-07-2023 End: 11-05-2024 take 1 capsule by mouth once daily FLUoxetine (PROZAC) 20 mg capsule Take 1 capsule by mouth once daily. 90 capsule 3 11/07/2024 Active Start: 08-05-2022 End: 02-16-2023 take 1 capsule by mouth once daily FLUoxetine (PROZAC) 10 mg capsule Indications: Grief reaction Take 1 capsule by mouth once daily. 30 capsule 5 02/17/2023 Active Comment on above: Take 1 capsule by [facility] once daily. folic acid 1 mg oral tablet (20 sources) Start: 03-16-20 17 End: 10-29-19 25 take 1 tablet by mouth once daily folic acid 1 mg tablet Take 1 tablet by mouth once daily. 100 tablet 3 10/29/2024 Active Comment on above: Take 1 tablet by [facility] once daily. hydrocortisone acetate 10 mg/ml / pramoxine hydrochloride 10 mg/ml rectal foam (6 sources) Corticosteroid Start: 02-08-20 21 End: 01-09-20 22 pramoxine-hydrocort isone (PROCTOFOAM-HC) rectal foam Hydrocortisone-Pram oxine (Proctofoam Hc) 1-1 % foam Active 1 APPLIC RC DAILY 10 February 07, 2021 5:53am 0 02/07/2021 01/08/2022 Discontinued Start: 02-07-2021 End: 01-19-2022 Hydrocortisone-Pramoxine (Pr octofoam Hc) 1-1 % foam Discontinued 1 NMA RC DAILY as needed for hemorrhoids 10 February 07, 2021 12:00am January 19, 2022 9:49am Start: 02-07-2021 End: 01-19-2022 Hydrocortisone-Pramoxine (Pr octofoam Hc) 1-1 % foam Discontinued 1 APPLIC RC DAILY 07 03February 06, 2021 11:00pm January 19, 2022 8:49am Comment on above: Hydrocortisone-Pramo xine (Proctofoam Hc) 1-1 % foam Active 1 APPLIC RC DAILY 10 February 07, 2021 5:53am iv contrast (will be provided with radiology test) (20 sources) Start: iv contrast (will be provided with radiology test) CT Urogram WO/W Inject, intravenously, once for 1 dose.No IV access, insert saline lock prior to the beginning of sedation, infusion, injection of imaging exam. Discontinue saline lock post exam. If Pt. has a central line or IVAD, may access for administration according to line specific nursing protocol. Once exam is complete flush line and de-access according to line specific nursing protocol in the CT contrast administration guidelines link. 1 each 02/13/2025 Active Start: 07-09-2021 iv contrast (w ill be provided with radiology test) Indications: Malignant neoplasm of urinary bladder, unspecified site (HCC) , Malignant neoplasm of right ureter (HCC) , BPH with obstruction/lower urinary tract symptoms CT ABD/PEL -Inject, intravenously, once for 1 dose.No IV access, insert saline lock prior to the beginning of sedation, infusion, injection of imaging exam. Discontinue saline lock post exam. If Pt. has a central line or IVAD, may access for administration according to line specific nursing protocol. Once exam is complete flush line and de-access according to line specific nursing protocol in the CT contrast administration guidelines link. 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 Discontinue saline lock post exam. If Pt. has a central line or IVAD, may access for administration according to line specific nursing protocol. Once exam is complete flush line and de-access according to line specific nursing protocol in the CT contrast administration guidelines link. 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 Discontinue saline lock post exam. If Pt. has a central line or IVAD, may access for administration according to line specific nursing protocol. Once exam is complete flush line and de-access according to line specific nursing protocol in the CT contrast administration guidelines link. 1 Each 0 02/26/2021 Active Comment on above: CT ABD/PEL -Inject, intravenously, once for 1 dose.No IV access, insert saline lock prior to the beginning of sedation, infusion, injection of imaging exam. Discontinue saline lock post exam. If Pt. has a central line or IVAD, may access for administration according to line specific nursing protocol. Once exam is complete flush line and de-access according to line specific nursing protocol in the CT contrast administration guidelines link. losartan potassium 100 mg oral tablet (20 sources) Angiotensin 2 Receptor Ahsan Start: 5 End: 5 take 1 tablet by mouth once daily losartan (COZAAR) 100 mg tablet Indications: Essential hypertension Take 1 tablet by mouth once daily. 90 tablet 3 10/17/2024 Active Start: 10-11-2023 End: 10-08-2024 take 1 tablet by mouth once daily losartan (COZAAR) 100 mg tablet Take 1 tablet by mouth once daily. 90 tablet 1 04/10/2024 10/08/2024 Discontinued Start: 02-21-2019 End: 07-14-2023 take 1 tablet by mouth once daily losartan (COZAAR) 100 mg tablet Take 1 tablet by mouth once daily. 90 tablet 0 07/14/2023 Active Start: 02-14-2019 End: 02-21-2019 take 1 tablet by mouth once daily Losartan 25 mg tablet Discontinued 25 mg PO DAILY February 14, 2019 12:00am February 21, 2019 11:16am Comment on above: Take 1 tablet by moiz [facility] once daily. Fharpqpu-Mjr-Hc-Lyc open-Lutein (Centrum Silver Men) 300-600-300 mcg Tablet (1 source) Start: 02-07-2021 take 300-600 tablets by mouth once daily Dcfxtywi-Vat-Zy-L ycopen-Lutein (Centrum Silver Men) 300-600-300 mcg Tablet Active 1 TABLET PO DAILY February 06, 2021 11:00pm Multivitamins-Grainger als-Lutein (CENTRUM SILVER) tab (20 sources) take 1 tablet by mouth once daily Multivitamins-Min erals-Lutein (CENTRUM SILVER) tab Take 1 tablet by mouth once daily. Active take 1 tablet by moiz th once daily Tkqwqkdvofrew-Zubmlgol-Lzatmu (CENTRUM S ILVER) tab Take 1 tablet by mouth once daily. 0 Active Comment on above: Take 1 tablet by moiz th once daily. Gg-Rcy-Jepzj-H7-Cdyaajh-K utein (Centrum Silver Men) 300-600-300 mcg Tablet (1 source) Start: 02-07-2021 Qs-Nsy-Nrlzj-K1-Lycopen- Lutein (Centrum Silver Men) 300-600-300 mcg Tablet Active 1 {tbl} PO DAILY February 07, 2021 12:00am nitroglycerin 0.4 mg sublingual tablet (4 sources) Nitrate Vasodilator Start: 02-14-2019 End: 01-17-2021 Nitroglycerin 0.4 mg tablet, sublingual Active 0.4 mg SL every 5 to 15 minutes as needed for chest pain 19 12January 17, 2021 11:06am Start: 02-14-2019 End: 01-17-2021 Nitroglycerin Active 0.4 MG SL every 5 to 15 minutes January 17, 2021 10:06am phenazopyridine hydrochloride 200 mg oral tablet (10 sources) Start: 09-08-2022 End: 09-11-2022 take 1 tablet by mouth every eight hours as needed phenazopyridine (PYRIDIUM) 200 mg tablet Take 1 tablet by mouth three times daily as needed for up to 3 days. 9 tablet 0 09/08/2022 09/11/2022 Active Start: 03-17-2022 End: 03-20-2022 take 1 tablet by mouth every eight hours as needed phenazopyridine (PYRIDIUM) 200 mg tablet Take 1 tablet by mouth three times daily as needed for up to 3 days. 9 tablet 0 03/17/2022 03/20/2022 Active Start: 02-04-2021 End: 01-08-2022 take 1 tablet by mouth every eight hours as needed phenazopyridine (PYRIDIUM) 200 mg tablet Take 1 tablet by mouth three times daily as needed (burning with urination). 15 tablet 0 02/04/2021 01/08/2022 Discontinued Comment on above: Take 1 tablet by moiz [facility] three times daily as needed (burning with urination). Take 1 tablet by moiz th three times daily as needed for up to 3 days. spironolactone 25 mg oral tablet (10 sources) Aldosterone Antagonist Start: 01-24-20 take 1 tablet by mouth once daily spironolactone (ALDACTONE) 25 mg tablet Indications: Essential hypertension Take 1 tablet by mouth once daily. 90 tablet 3 01/23/2025 Active vitamin b12 1 mg/ml injectable solution (20 sources) Vitamin B12 Start: 08-26-20 End: 02-10-20 cyanocobalamin 1,000 mcg injection Start: 07-13-2019 End: 01-17-2021 inject 100 ug by intramuscular injection every month Cyanocobalamin (Vitamin B-12) 1,000 mcg/mL kit Discontinued 100 ug IM EVERY MONTH July 13, 2019 12:00am January 17, 2021 11:06am Start: 07-13-2019 End: 01-17-2021 inject 100 ug by intramuscular injection every month Cyanocobalamin (Vitamin B-12) Discontinued 100 MCG IM EVERY MONTH July 12, 2019 11:00pm January 17, 2021 10:06am Start: 02-14-2019 End: 07-13-2019 take 1 capsule by mouth once daily Cyanocobalamin (Vitamin B-12) 1,000 mcg capsule Discontinued 1000 ug PO DAILY February 14, 2019 12:00am July 13, 2019 9:44am Completed/Discontinued Medications Medication Drug Class(es) Dates Sig (Normalized) Sig (Original) abiraterone acetate 500 mg oral tablet (20 sources) Cytochrome P450 17A1 Inhibitor Start: 01-19-2022 End: 02-15-2023 take 1 tablet by mouth once daily 1 hour(s) after mealtime Abiraterone (Zytiga) 500 mg tablet Discontinued 1000 mg PO DAILY January 19, 2022 12:00am February 15, 2023 11:03am must be taken on empty stomach, at least 1 hr before or 2 hrs after a meal/food Start: 06-23-2021 End: 06-13-2023 take 4 tablets by mouth once daily abiraterone (ZYTIGA) 250 mg tablet Take 4 tablets by mouth once daily. 120 tablet 11 06/18/2022 12/30/2022 Discontinued (Changing Therapy/Dosage Form) Start: 02-14-2019 End: 01-19-2022 take 1 tablet by mouth once daily Abiraterone (Zytiga) 250 mg tablet Discontinued 1000 mg PO DAILY February 14, 2019 12:00am January 19, 2022 9:56am chemo Comment on above: Take 4 tablets by [facility] once daily. Take four tablets by mouth once daily. acetaminophen 325 mg / HYDROcodone bitartrate 5 mg oral tablet (2 sources) Opioid Agonist Start: 03-19-2017 End: 02-14-2019 Hydrocodone-Acetaminophe n 1 TABLET tablet Discontinued 1 {tbl} PO EVERY 6 HOURS NEEDED as needed for Pain 8 0 March 19, 2017 12:00am February 14, 2019 11:13am Start: 03-19-2017 End: 02-14-2019 take 1 tablet by mouth every six hours as needed Hydrocodone-Acetaminophen Discontinued 1 TABLET PO EVERY 6 HOURS NEEDED 8 March 18, 2017 11:00pm February 14, 2019 10:13am amiodarone hydrochloride 100 mg oral tablet (2 sources) Antiarrhythmic Start: 08-14-2020 End: 08-14-2020 take 1 tablet by mouth once daily Amiodarone 100 mg tablet Discontinued 100 mg PO DAILY August 14, 2020 1:00am August 14, 2020 3:19pm amoxicillin 250 mg chewable tablet (2 sources) Penicillin-class Antibacterial Start: 04-25-2015 End: 04-26-2015 take 2 tablets by mouth three times daily Amoxicillin 250 MG Tab.Chew Discontinued 500 mg PO THREE TIMES A DAY April 25, 2015 12:00am April 26, 2015 8:12am Start: 04-25-2015 End: 04-26-2015 take 500 mg by mouth three times daily Amoxicillin Discontinued 500 MG PO THREE TIMES A DAY April 24, 2015 11:00pm April 26, 2015 7:12am atenolol 25 mg oral tablet (2 sources) beta-Adrenergic Ahsan Start: 04-25-2015 End: 02-14-2019 take 1 tablet by mouth once daily Atenolol 25 MG tablet Discontinued 25 mg PO DAILY April 25, 2015 12:00am February 14, 2019 11:14am calcium carbonate 1250 mg oral tablet (2 sources) Start: 04-25-2015 End: 02-14-2019 take 1 tablet by mouth twice daily at mealtime Calcium Carbonate 500 MG tablet Discontinued 500 mg PO TWICE DAILY WITH MEALS April 25, 2015 12:00am February 14, 2019 11:13am escitalopram 5 mg oral tablet (1 source) Serotonin Reuptake Inhibitor Start: 04-22-2022 take 1 tablet by mouth once daily escitalopram oxalate (LEXAPRO) 5 mg tablet Take 1 tablet by mouth once daily. 30 tablet 2 04/22/2022 Active Comment on above: Take 1 tablet by [facility] once daily. ibuprofen 200 mg oral capsule (2 sources) Nonsteroidal Anti-inflammatory Drug Start: 02-14-2019 End: 03-19-2020 take 1 capsule by mouth every six hours as needed Ibuprofen 200 mg capsule Discontinued 200 mg PO EVERY 6 HOURS as needed February 14, 2019 12:00am March 19, 2020 11:15am 0.375 ml leuprolide acetate 60 mg/ml prefilled syringe (5 sources) Gonadotropin Releasing Hormone Receptor Agonist Start: 04-05-2025 End: 04-05-2025 inject 1 dose by subcutaneous injection once 22.5 mg, SUBCUTANEOUS, ONCE, 1 dose, On Trena 04/05/25 at 1030, Hazardous Chemotherapy Drug: Use appropriate PPE. Start: 01-11-2025 End: 01-11-2025 inject 1 dose by subcutaneous injection once 22.5 mg, SUBCUTANEOUS, ONCE, 1 dose, On Trena 01/11/25 at 1000, Hazardous Chemotherapy Drug: Use appropriate PPE. Start: 07-27-2024 End: 07-27-2024 inject 1 dose by subcutaneous injection once 22.5 mg, SUBCUTANEOUS, ONCE, 1 dose, On Trena 07/27/24 at 1000, Hazardous Chemotherapy Drug: Use appropriate PPE. Start: 05-04-2024 End: 05-04-2024 leuprolide 22.5 mg subcutane ous syringe (ELIGARD) Start: 02-10-2024 End: 02-10-2024 leuprolide 22.5 mg subcutane ous syringe (ELIGARD) lidocaine hydrochloride 0.02 mg/mg topical gel (1 source) Antiarrhythmic, Amide Local Anesthetic Start: 01-28-2022 End: 01-28-2022 lidocaine urojet 2 % 6 mL topical gel (XYLOCAINE, GLYDO) Start: 01-28-2022 End: 01-28-2022 lidocaine urojet 2 % 6 mL to pical gel (XYLOCAINE, GLYDO) LORazepam 1 mg oral tablet (2 sources) Benzodiazepine Start: 02-14-2019 End: 07-13-2019 take 1 tablet by mouth at bedtime as needed Lorazepam 1 mg tablet Discontinued 1 mg PO AT BEDTIME as needed February 14, 2019 12:00am July 13, 2019 9:45am metFORMIN hydrochloride 500 mg oral tablet (17 sources) Biguanide Start: 12-02-2021 End: 06-24-2022 take 1 tablet by mouth once daily at lunch metFORMIN (GLUCOPHAGE) 500 mg tablet Take 1 tablet by mouth daily with lunch. 90 tablet 3 12/02/2021 06/24/2022 Discontinued Comment on above: Take 1 tablet by moiz th daily with lunch. microencapsulated potassium chloride 20 meq extended release oral tablet (20 sources) Start: 05-27-2022 End: 03-07-2025 take 1 tablet by mouth once daily potassium chloride ER (KLOR-CON) 20 mEq tablet Indications: Hypokalemia Take 1 tablet by mouth once daily. 90 tablet 3 11/07/2024 03/07/2025 Discontinued Start: 06-03-2021 End: 05-24-2022 take 1 tablet by mouth once daily potassium chloride ER (K-DUR, KLOR-CON) 20 mEq tablet Indications: Hypokalemia Take 1 tablet by mouth once daily. 90 tablet 3 06/03/2021 05/24/2022 Discontinued Start: 07-13-2019 End: 09-29-2024 take 1 tablet by mouth once daily Potassium Chloride 20 mEq tablet extended release Discontinued 20 meq PO DAILY July 13, 2019 12:00am September 29, 2024 10:36am Comment on above: Take 1 tablet by moiz once daily. predniSONE 5 mg oral tablet (20 sources) Start: 02-15-20 End: 03-03-20 take 1 tablet by mouth once daily Prednisone 5 mg tablet Discontinued 5 mg PO DAILY February 14, 2019 12:00am February 15, 2023 11:03am chemo Comment on above: Take 1 tablet by moiz once daily. Take with breakfast simvastatin 20 mg oral tablet (2 sources) HMG-CoA Reductase Inhibitor Start: 04-25-20 End: 02-22-20 take 1 tablet by mouth at bedtime Simvastatin 20 MG tablet Discontinued 20 mg PO AT BEDTIME April 25, 2015 12:00am February 21, 2019 11:14am 1000 ml sodium chloride 9 mg/ml injection (1 source) Start: 02-14-20 End: 02-14-20 inject 1 dose intravenously once 0.9 % sodium chloride (NACL 0.9%) infusion Inject 150 mL/hr intravenously one time only for 1 dose. Administer at rate defined per CT contrast administration specifications. To be provided with radiology test. 1 each 02/13/2025 02/13/2025 Problems Active Problems Problem Classification Problem Date Documented Da te Episodic/Chronic Anxiety disorders (3 sources) Anxiety; Translations: [Generalized anxiety disorder] Chronic Cancer of bladder (20 sources) Malignant neoplasm of bladder, unspecified; Translations: [Malignant tumor of urinary bladder] Onset: 09-06-2009 08-11-2017 Chronic Cancer of bronchus; lung (20 sources) Malignant tumor of lung; Translations: [Malignant neoplasm of unspecified part of unspecified bronchus or lung] Onset: 02-01-2014 02-08-2017 Chronic Cancer of kidney and renal pelvis (1 source) Transitional cell carcinoma of right kidney; Translations: [Malignant neoplasm of right kidney, except renal pelvis] Chronic Cancer of other urinary organs (20 sources) Malignant tumor of ureter; Translations: [Malignant neoplasm of right ureter] Onset: 04-29-2021 04-29-2021 Chronic Cancer of prostate (20 sources) Malignant tumor of prostate; Translations: [Malignant neoplasm of prostate] Onset: 03-05-2006 04-29-2021 Chronic Comment on above: to mediastinal lymph node: being tx with Abiraterone (Zytiga) and Prednisone Cancer of prostate (2 sources) History of malignant neoplasm of prostate; Translations: [Personal history of malignant neoplasm of prostate] Episodic Chronic kidney disease (20 sources) Chronic kidney disease stage 3A ; Translations: [Stage 3a chronic kidney disease (HCC)] Onset: 02-05-2023 Chronic Coronary atherosclerosis and other heart disease (20 sources) Coronary arteriosclerosis; Translations: [Atherosclerotic heart disease of [place] coronary artery without angina pectoris] Onset: 01-08-2014 Chronic Comment on above: 4.0 X 18 mm Integrit y BMS to mid-RCA on 09/12/[address] Washington @ [facility] [place] Disorders of lipid metabolism (20 sources) Hyperlipidemia; Translations: [Hyperlipidemia, unspecified] Onset: 01-08-2014 01-08-2014 Chronic Diverticulosis and diverticulitis (20 sources) Diverticulosis of colon; Translations: [Diverticulosis of large intestine without perforation or abscess without bleeding] Onset: 12-30-2006 12-30-2006 Chronic Essential hypertension (20 sources) Essential hypertension; Translations: [Essential (primary) hypertension] Onset: 08-03-2006 09-22-2021 Chronic Fluid and electrolyte disorders (7 sources) Hypokalemia; Translations: [Hypokalemia] Onset: 03-07-2025 Episodic Gastrointestinal hemorrhage (2 sources) Rectal hemorrhage; Translations: [Hemorrhage of anus and rectum] 02-07-2021 Episodic Genitourinary symptoms and ill-defined conditions (7 sources) Painless hematuria; Translations: [Hematuria, unspecified] Onset: 02-13-2025 02-09-2025 Episodic Hyperplasia of prostate (2 sources) Benign prostatic hypertrophy with outflow obstruction; Translations: [Benign prostatic hyperplasia with lower urinary tract symptoms] Chronic Intestinal obstruction without hernia (2 sources) Small bowel obstruction; Translations: [Unspecified intestinal obstruction, unspecified as to partial versus complete obstruction] 07-22-2020 Episodic Malaise and fatigue (1 source) Asthenia; Translations: [Other malaise] Episodic Mood disorders (1 source) Depressive disorder; Translations: [Depression, unspecified depression type] 10-17-2024 Chronic Neoplasms of unspecified nature or uncertain behavior (20 sources) Essential thrombocythemia; Translations: [Essential (hemorrhagic) thrombocythemia] Onset: 10-17-2024 06-02-2023 Chronic Nutritional deficiencies (1 source) Cobalamin deficiency; Translations: [Deficiency of other specified B group vitamins] 07-16-2023 Episodic Other aftercare (1 source) History of bladder neoplasm; Translations: [Encounter for follow-up examination after completed treatment for malignant neoplasm] 11-18-2023 Episodic Other aftercare (8 sources) History of malignant neoplasm of thoracic cavity structure; Translations: [Encounter for follow-up examination after completed treatment for malignant neoplasm] 11-18-2023 Episodic Other connective tissue disease (1 source) Recurrent falls ; Translations: [Repeated falls] 07-16-2023 Episodic Other ear and sense organ disorders (1 source) Impacted cerumen, bilateral; Translations: [Bilateral impacted cerumen] Onset: 05-03-2025 Episodic Other lower respiratory disease (2 sources) Dyspnea on exertion; Translations: [Other forms of dyspnea] 07-29-2022 Episodic Other lower respiratory disease (1 source) Other forms of dyspnea; Translations: [Other respiratory abnormalities] Episodic Other nervous system disorders (10 sources) Walking disability; Translations: [Difficulty in walking, not elsewhere classified] Onset: 03-22-2025 03-07-2025 Chronic Other nervous system disorders (1 source) Difficulty in walking, not elsewhere classified; Translations: [Ambulatory dysfunction] Onset: 03-22-2025 Chronic Other nervous system disorders (11 sources) Impairment of balance; Translations: [Other abnormalities of gait and mobility] Onset: 03-22-2025 Episodic Other nervous system disorders (1 source) Other abnormalities of gait and mobility; Translations: [Balance disorder] Onset: 03-22-2025 Episodic Other nutritional; endocrine; and metabolic disorders (2 sources) Obese class I; Translations: [Obesity, unspecified] 07-10-2019 Chronic Other screening for suspected conditions (not mental disorders or infectious disease) (6 sources) Patient encounter status; Translations: [Encounter for screening for other disorder] Onset: 02-13-2025 Episodic Other skin disorders (2 sources) Skin lesion; Translations: [Disorder of the skin and subcutaneous tissue, unspecified] 07-27-2024 Episodic Screening and history of mental health and substance abuse codes (2 sources) Encounter for screening for depression; Translations: [Encounter for screening examination for other mental health and behavioral disorders] Onset: 03-07-2025 Episodic Secondary malignancies (20 sources) Secondary malignant neoplasm of intrathoracic lymph nodes; Translations: [Secondary and unspecified malignant neoplasm of intrathoracic lymph nodes] Onset: 06-14-2018 06-14-2018 Chronic Secondary malignancies (20 sources) Secondary malignant neoplasm of bone; Translations: [Secondary malignant neoplasm of bone] Onset: 09-26-2014 04-07-2023 Chronic Secondary malignancies (1 source) Secondary and unspecified malignant neoplasm of intrathoracic lymph nodes; Translations: [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)] Onset: 06-14-2018 Chronic Unclassified (1 source) Recheck Onset: 01-23-2025 Past or Other Problems Problem Classification Problem Date Documented Da te Episodic/Chronic Abdominal hernia (20 sources) Left inguinal hernia ; Translations: [Unilateral inguinal hernia, without obstruction or gangrene, not specified as recurrent] Onset: 02-19-2017 02-19-2017 Episodic Cancer of bladder (2 sources) H/O: malignant neoplasm; Translations: [Personal history of malignant neoplasm of bladder] Onset: 10-19-2024 05-04-2024 Episodic Cancer of bronchus; lung (2 sources) Personal history of other malignant neoplasm of bronchus and lung; Translations: [Hx of cancer of lung] Onset: 10-19-2024 Episodic Coronary atherosclerosis and other heart disease (20 sources) Stent in branch of right coronary artery; Translations: [Presence of coronary angioplasty implant and graft] Onset: 09-12-2013 10-15-2013 Episodic Comment on above: 4.0 X 18 mm Integrit y BMS to mid-RCA on 09/13/[address] 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] Onset: 10-18-2015 Resolved: 10-04-2017 10-04-2017 Chronic Diabetes mellitus without complication (20 sources) Prediabetes; Translations: [Prediabetes] Onset: 08-11-2017 08-11-2017 Episodic Neoplasms of unspecified nature or uncertain behavior (20 sources) Thrombocytosis; Translations: [Thrombocytosis] Onset: 11-08-2006 Resolved: 06-11-2016 Episodic Other aftercare (1 source) Encounter for follow-up examination after completed treatment for malignant neoplasm; Translations: [Encounter for follow-up surveillance of lung cancer] Onset: 10-19-2024 Episodic Other and unspecified benign neoplasm (20 sources) Benign neoplasm of colon; Translations: [Benign neoplasm of colon, unspecified] Onset: 12-30-2006 12-30-2006 Episodic Other diseases of kidney and ureters (20 sources) Hydronephrosis; Translations: [Hydronephrosis with ureteral stricture, not elsewhere classified] Onset: 12-09-2022 12-09-2022 Episodic Other gastrointestinal disorders (20 sources) Radiation enterocolitis; 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] Onset: 12-30-2006 12-30-2006 Episodic Other injuries and conditions due to external causes (20 sources) Open wound; Translations: [Other injury of unspecified body region, initial encounter] Onset: 12-16-2006 Resolved: 09-10-2014 09-10-2014 Episodic Other nervous system disorders (20 sources) Abnormal gait; Translations: [Unspecified abnormalities of gait and mobility] Onset: 07-20-2023 Episodic Other nervous system disorders (20 sources) Acute postoperative pain; Translations: [Other acute postprocedural pain] Onset: 02-24-2014 Resolved: 06-11-2016 09-22-2021 Episodic Other non-epithelial cancer of skin (20 sources) History of malignant basal cell neoplasm of skin; Translations: [Personal history of other malignant neoplasm of skin] Onset: 06-10-2015 06-10-2015 Episodic Other skin disorders (20 sources) Actinic keratosis; Translations: [Actinic keratosis] Onset: 06-10-2015 06-10-2015 Episodic Other skin disorders (20 sources) Scar conditions and fibrosis of skin; Translations: [Scar conditions and fibrosis of skin] Onset: 11-08-2006 Resolved: 06-10-2015 06-10-2015 Episodic Other skin disorders (1 source) Disorder of the skin and subcutaneous tissue, unspecified; Translations: [Skin lesion] Onset: 01-11-2025 Episodic Other upper respiratory disease (20 sources) Mediastinal mass; Translations: [Other diseases of mediastinum, not elsewhere classified] Onset: 05-31-2018 05-31-2018 Episodic Unclassified (20 sources) Drug therapy finding; Translations: [DVT prophylaxis] Onset: 02-22-2014 Resolved: 10-04-2017 09-22-2021 Unclassified (20 sources) DISPOSITION AND FOLLOW-UP Onset: 02-22-2014 Resolved: 09-10-2014 09-22-2021 Urinary tract infections (20 sources) Irradiation cystitis; Translations: [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 05-03-2025 CNOV Office Visit (INTMWS ) ISAIAS SLAUGHTER ([id number]) 1935 M Date Time Provider Department 05/03/25 10:40 AM CHEL RICH INTMWS During your visit today, we recorded the following information about you: Pulse Respiration Blood pressure 77/minute 16/minute 128/62 Chel Rich APRN.ACQUISITIONS ASSISTANT 05/03/2025 12:49 PM Signed CC: Patient presents with: Ear Problem: B/L ear flushing HPI Isaias Slaughter is a 89 year old male who presents today for cerumen impaction. [facility] her had bilateral ear wax build up, was given ear drops and told to go to PCP for flushing prior to upcoming fitting for hearing aides. Used drops as instructed for 5 days and reports some removal of ear wax. Denies ear pain, fever, chills, headache, dizziness, cough,, Shortness of Breath, wheezing, or sinus concerns,. 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 History of basal cell carcinoma HLD (hyperlipidemia) Hx of cancer of lung Hydronephrosis with ureteral stricture, not elsewhere classified HYPERTENSION NOS 08/03/2006 MALIGN NEOPL PROSTATE 03/05/2006 Malignant neoplasm of bladder, part unspecified 09/27/2001 bladder cancer 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 Malignant 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 (HCC) Malignant neoplasm of urinary bladder (HCC) Other and unspecified hyperlipidemia Hyperlipidemia PERS HX SKIN MALIGNANCY NEC 11/08/2006 Prediabetes Prostate cancer (HCC) Stage 3a chronic kidney disease (CKD) (HCC) 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, 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PAST SURGICAL HISTORY Procedure Laterality Date ANES TRANSURETHRAL RESECTION OF BLADDER TUMOR 2012 ANES TRANSURETHRAL RESECTION OF BLADDER TUMOR 2010 APPENDECTOMY 194 BLADDER BIOSPY FULGUR 2018 CARDIAC 2013 stent to RCA CATARACT EXTRACTION W/ INTRAOCULAR LENS IMPLANT HX Right COLON SURGERY HX 2019 COLONOSCOPY FLX DX W/COLLJ SPEC WHEN PFRMD 08/25/2012 Colonoscopy report 5 years COLSC FLX W/RMVL OF TUMOR POLYP LESION SNARE TQ 12/30/2006 CYSTOSCOPY,+URETEROSCOPY Right 03/2021 CYSTOURETHROSCOPY,FULGUR .5-2CM LESN 01/2021 CYSTOURETHROSCOPY,FULGUR .5-2CM LESN 2011 EGD REMOVAL TUMOR POLYP/OTHER LESION SNARE TECH 02/2022 done at [facility] PAST SURGICAL HISTORY OF 2001 TURB BLADDER CANCER PAST SURGICAL HISTORY OF 2013 cardiac stent x1 RMVL LUNG OTHER THAN PNEUMONECTOMY 1 LOBE LOBECT 02/21/2014 Mediastinoscopy, right posterolateral thoracotomy, right lower lobectomy, lymphadenectomy, rib blocks RPR 1ST INGUN HRNA AGE 5 YRS/> REDUCIBLE Left 03/19/2017 SIGMOIDOSCOPY FLX DX W/COLLJ SPEC BR/WA IF PFRMD Sigmoidoscopy TONSILLECTOMY PRIMARY/SECONDARY Tonsillectomy ALLERGIES Amoxicillin, Lisinopril, and Xtxtkma-Qua-Mvb Reductase Inhibitors MEDICATIONS iv contrast (will be provided with radiology test) CT Urogram WO/W Inject, intravenously, once for 1 dose.No IV access, insert saline lock prior to the beginning of sedation, infusion, injection of imaging exam. Discontinue saline lock post exam. If Pt. has a central line or IVAD, may access for administration according to line specific nursing protocol. Once exam is complete flush line and de-access according to line specific nursing protocol in the CT contrast administration guidelines link. spironolactone (ALDACTONE) 25 mg tablet Take 1 tablet by mouth once daily. FLUoxetine (PROZAC) 20 mg capsule Take 1 capsule by mouth once daily. amLODIPine (NORVASC) 5 mg tablet Take 1 tablet by mouth once daily. folic acid 1 mg tablet Take 1 tablet by mouth once daily. losartan (COZAAR) 100 mg tablet Take 1 tablet by mouth once daily. enzalutamide (XTANDI) 40 mg tablet Take 2 tablets (80 mg) by mouth once daily. Calcium Citrate 250 mg calcium tab Take 1 tablet by mouth once daily. Cholecalciferol, Vitamin D3, (VITAMIN D) 25 mcg (1,000 unit) cap Take 1 capsule by mouth once daily. aspirin (CHILDRENS ASPIRIN) 81 mg chewable tablet Take 1 tablet by mouth once daily. Vxqanvauehart-Vnjhzfii-Coszgi (CENTRUM SILVER) tab Take 1 tablet by mouth once daily. FAMILY HISTORY Problem Relation Age of Onset Heart Mother Heart Father Ischemic Heart Disease Father Hypertension Brother Lipids Brother None No Family History No lung disease. Social History Tobacco Use Smoking status: Former Current packs/day: 0.00 Average packs/day: 1 pack/day for 12.0 years (12.0 ttl pk-yrs) Types: Cigarettes Start date: 1952 Quit date: 09/27 (more content not included)... Normal [facility] CNTHERAPYon 04-23-2025 CNTHERAPY OT/PT/Speech Visit ( PTWS) ISAIAS SLAUGHTER ([id number]) 1935 M Date Time Provider Department 04/23/25 10:45 AM THANH GARCIA PTWS Date Time Provider Department Center 04/23/2025 10:45 AM [id number], C[facility] PTWS Norma Layton Reason for Visit: PT Discharge [752] Primary Visit Diagnosis:Balance disorder [R26.89] Other Visit Diagnosis:Ambulatory dysfunction [R26.2] Allergies As of Date: 04/23/2025 Noted Allergy Reaction AMOXICILLIN 12/30/2016 6 - Diarrhea 8 - GI Upset Comments: Patient cannot tolerate this medication LISINOPRIL 10/08/2014 3 - Cough SOLWWHU-LEG-POK REDUCTASE INHIBIT*01/28/2021 14 - Other: See Comments Comments: Patient states he will not take statins because of what they did to his . Date Reviewed: 04/05/2025 Reviewed by: Gilbert Mejia MA - Fully Assessed Prescriptions as of 04/23/2025 - iv contrast (will be provided with radiology test) CT Urogram WO/W Inject, intravenously, once for 1 dose.No IV access, insert saline lock prior to the beginning of sedation, infusion, injection of imaging exam. Discontinue saline lock post exam. If Pt. has a central line or IVAD, may access for administration according to line specific nursing protocol. Once exam is complete flush line and de-access according to line specific nursing protocol in the CT contrast administration guidelines link. - spironolactone (ALDACTONE) 25 mg tablet Take 1 tablet by mouth once daily. - FLUoxetine (PROZAC) 20 mg capsule Take 1 capsule by mouth once daily. - amLODIPine (NORVASC) 5 mg tablet Take 1 tablet by mouth once daily. - folic acid 1 mg tablet Take 1 tablet by mouth once daily. - losartan (COZAAR) 100 mg tablet Take 1 tablet by mouth once daily. - enzalutamide (XTANDI) 40 mg tablet Take 2 tablets (80 mg) by mouth once daily. - Calcium Citrate 250 mg calcium tab Take 1 tablet by mouth once daily. - Cholecalciferol, Vitamin D3, (VITAMIN D) 25 mcg (1,000 unit) cap Take 1 capsule by mouth once daily. - aspirin (CHILDRENS ASPIRIN) 81 mg chewable tablet Take 1 tablet by mouth once daily. - Bgcwpckhdbqbq-Wfddtdhf-Enetgv (CENTRUM SILVER) tab Take 1 tablet by mouth once daily. Sales Operations Consultant: Addendum Therapy (PT/OT/Speech/Resp) ID: [id number] 04/23/2025 11:20 AM Author: THANH GARCIA Signed by THANH GARCIA PT on 04/23/2025 at 11:20 AM * * * This document replaces document [id number] * * * Document text: Program_ID:[id number] Access Code: [email or web address] URL: [email or web address] Date: 04-23-2025 Prepared By: Thanh Garcia Program Notes Exercises - Sit to Stand - 1 x daily - 7 x weekly - 4 sets - 10 reps - Supine Active Straight Leg Raise - 1 x daily - 7 x weekly - 4 sets - 10 reps - Supine Active Straight Leg Raise - 1 x daily - 7 x weekly - 4 sets - 10 reps - Standing Romberg to 1/2 Tandem Stance - 1 x daily - 7 x weekly - 4 sets - reps - Standing Romberg to 1/2 Tandem Stance - 1 x daily - 7 x weekly - 4 sets - reps - Forward Step-Up With Dumbbells - 1 x daily - 7 x weekly - 4 sets - 10 reps - Forward Step-Up With Dumbbells - 1 x daily - 7 x weekly - 4 sets - 10 reps - Seated Isometric Hip Adduction with Ball - 1 x daily - 7 x weekly - 4 sets - 10 reps -------- Normal [facility] THERAPY NTon 04-23-2025 THERAPY NT HNO ID: [id number] Author: THANH GARCIA, SOCORRO Service: ? Author Type: Physical Therapist Type: Therapy (PT/OT/Speech/Resp) Filed: 04/23/2025 11:20 Note Text: Program_ID:[id number] Access Code: [email or web address] URL: [email or web address] Date: 04-23-2025 Prepared By: Thanh Garcia Program Notes Exercises - Sit to Stand - 1 x daily - 7 x weekly - 4 sets - 10 reps - Supine Active Straight Leg Raise - 1 x daily - 7 x weekly - 4 sets - 10 reps - Supine Active Straight Leg Raise - 1 x daily - 7 x weekly - 4 sets - 10 reps - Standing Romberg to 1/2 Tandem Stance - 1 x daily - 7 x weekly - 4 sets - reps - Standing Romberg to 1/2 Tandem Stance - 1 x daily - 7 x weekly - 4 sets - reps - Forward Step-Up With Dumbbells - 1 x daily - 7 x weekly - 4 sets - 10 reps - Forward Step-Up With Dumbbells - 1 x daily - 7 x weekly - 4 sets - 10 reps - Seated Isometric Hip Adduction with Ball - 1 x daily - 7 x weekly - 4 sets - 10 reps Normal [facility] CBC W Auto Differential pane l (Bld)on 04-05-2025 Basophils (Bld) [#/Vol] 0.06 10*3/uL Normal <0.11 [facility] Comment on above: Order Comment: Speci men Type: BLOOD SPECIMENOrdering Facility: [facility] Address: [address] [place] [address] Performed By: #### 5 [id number] ####[facility] [id number] [place] [address] [place] Basophils/100 WBC (Bld) 0.6 % Normal [facility] Comment on above: Order Comment: Speci men Type: BLOOD SPECIMENOrdering Facility: [facility] Address: [address] [place] [address] Performed By: #### 5 7021-8 ####[facility] MIKIEWHAKANLIA [id number] [place] [address] [place] Differential cell count method Nom (Bld) Auto Normal [facility] Comment on above: Order Comment: Speci men Type: BLOOD SPECIMENOrdering Facility: [facility] Address: [address] [place] [address] Performed By: #### 5 7021-8 ####[facility] [id number] [place] [address] [place] Eosinophils (Bld) [#/Vol] 0.17 10*3/uL Normal <0.46 [facility] Comment on above: Order Comment: Speci men Type: BLOOD SPECIMENOrdering Facility: [facility] Address: [address] [place] [address] Performed By: #### 5 7021-8 ####[facility] [id number] [place] [address] [place] Eosinophils/100 WBC (Bld) 1.7 % Normal [facility] Comment on above: Order Comment: Speci men Type: BLOOD SPECIMENOrdering Facility: [facility] Address: [address] [place] [address] Performed By: #### 5 7021-8 ####[facility] [id number] [place] [address] [place] Erythrocyte distribution width (RBC) [Ratio] 14.6 % Normal 11.5-15.0 [facility] Comment on above: Order Comment: Speci men Type: BLOOD SPECIMENOrdering Facility: [facility] Address: [address] [place] [address] Performed By: #### 5 7021-8 ####[facility] [id number] [place] [address] [place] Hematocrit (Bld) [Volume fraction] 49.4 % Normal 39.0-51.0 [facility] Comment on above: Order Comment: Speci men Type: BLOOD SPECIMENOrdering Facility: [facility] Address: [address] [place] [address] Performed By: #### 5 7021-8 ####[facility] [id number] [place] [address] [place] Hemoglobin (Bld) [Mass/Vol] 16.2 g/dL Normal 13.0-17.0 [facility] Comment on above: Order Comment: Speci men Type: BLOOD SPECIMENOrdering Facility: [facility] Address: [address] [place] [address] Performed By: #### 5 7021-8 ####[facility] [id number] [place] [address] [place] Immature granulocytes (Bld) [#/Vol] 0.12 10*3/uL High <0.10 [facility] Comment on above: Order Comment: Speci men Type: BLOOD SPECIMENOrdering Facility: [facility] Address: [address] [place] [address] Performed By: #### 5 7021-8 ####[facility] [id number] [place] [address] [place] Immature granulocytes/100 WBC (Bld) 1.2 % Normal [facility] Comment on above: Order Comment: Speci men Type: BLOOD SPECIMENOrdering Facility: [facility] Address: [address] [place] [address] Performed By: #### 5 7021-8 ####[facility] [id number] [place] [address] [place] Lymphocytes (Bld) [#/Vol] 0.90 10*3/uL Low 1.00-4.00 [facility] Comment on above: Order Comment: Speci men Type: BLOOD SPECIMENOrdering Facility: [facility] Address: [address] [place] [address] Performed By: #### 5 7021-8 ####[facility] [id number] [address] STATES [facility] Lymphocytes/100 WBC (Bld) 9.1 % Normal [facility] Comment on above: Order Comment: Speci men Type: BLOOD SPECIMENOrdering Facility: [facility] Address: [address] [place] [address] Performed By: #### 5 7021-8 ####[facility] MIKIEALBUQUERQUEHAKANKASSIDY [id number] [place] [address] [place] MCH (RBC) [Entitic mass] 29.0 pg Normal 26.0-34.0 [facility] Comment on above: Order Comment: Speci men Type: BLOOD SPECIMENOrdering Facility: [facility] Address: [address] [place] [address] Performed By: #### 5 7021-8 ####[facility] [id number] [place] [address] [place] MCHC (RBC) [Mass/Vol] 32.8 g/dL Normal 30.5-36.0 [facility] Comment on above: Order Comment: Speci men Type: BLOOD SPECIMENOrdering Facility: [facility] Address: [address] [place] [address] Performed By: #### 5 7021-8 ####[facility] MIKIEALBUQUERQUENCLIBhumika [id number] [place] [address] [place] MCV (RBC) [Entitic vol] 88.5 fL Normal 80.0-100.0 [facility] Comment on above: Order Comment: Speci men Type: BLOOD SPECIMENOrdering Facility: [facility] Address: [address] [place] [address] Performed By: #### 5 7021-8 ####[facility]HAKANLIA [id number] [place] [address] [place] Monocytes (Bld) [#/Vol] 0.81 10*3/uL Normal <0.87 [facility] Comment on above: Order Comment: Speci men Type: BLOOD SPECIMENOrdering Facility: [facility] Address: [address] [place] [address] Performed By: #### 5 7021-8 ####[facility] [id number] [place] [address] [place] Monocytes/100 WBC (Bld) 8.2 % Normal [facility] Comment on above: Order Comment: Speci men Type: BLOOD SPECIMENOrdering Facility: [facility] Address: [address] [place] [address] Performed By: #### 5 7021-8 ####[facility] [id number] [place] [address] [place] Neutrophils (Bld) [#/Vol] 7.80 10*3/uL High 1.45-7.50 [facility] Comment on above: Order Comment: Speci men Type: BLOOD SPECIMENOrdering Facility: [facility] Address: [address] [place] [address] Performed By: #### 5 7021-8 ####[facility] [id number] [place] [address] [place] Neutrophils/100 WBC (Bld) 79.2 % Normal [facility] Comment on above: Order Comment: Speci men Type: BLOOD SPECIMENOrdering Facility: [facility] Address: [address] [place] [address] Performed By: #### 5 7021-8 ####[facility] [id number] [place] [address] [place] Nucleated RBC (Bld) [#/Vol] 10*3/uL Normal <0.01 [facility] Comment on above: Order Comment: Speci men Type: BLOOD SPECIMENOrdering Facility: [facility] Address: [address] [place] [address] Performed By: #### 5 7021-8 ####[facility] [id number] [place] [address] [place] Nucleated RBC/100 WBC (Bld) [Ratio] 0.0 /100 WBC Normal [facility] Comment on above: Order Comment: Speci men Type: BLOOD SPECIMENOrdering Facility: [facility] Address: [address] [place] [address] Performed By: #### 5 7021-8 ####[facility] [id number] [place] [address] [place] Platelet mean volume (Bld) [Entitic vol] 10.7 fL Normal 9.0-12.7 [facility] Comment on above: Order Comment: Speci men Type: BLOOD SPECIMENOrdering Facility: [facility] Address: [address] [place] [address] Performed By: #### 5 7021-8 ####[facility] [id number] [place] [address] [place] Platelets (Bld) [#/Vol] 443 10*3/uL High 150-400 [facility] Comment on above: Order Comment: Speci men Type: BLOOD SPECIMENOrdering Facility: [facility] Address: [address] [place] [address] Performed By: #### 5 7021-8 ####[facility] [id number] [place] [address] [place] RBC (Bld) [#/Vol] 5.58 10*6/uL Normal 4.20-6.00 [facility] Comment on above: Order Comment: Speci men Type: BLOOD SPECIMENOrdering Facility: [facility] Address: [address] [place] [address] Performed By: #### 5 7021-8 ####[facility] NORMA VAZQUEZNCLIA [id number] [place] [address] [place] WBC (Bld) [#/Vol] 9.86 10*3/uL Normal 3.70-11.00 [facility] Comment on above: Order Comment: Speci men Type: BLOOD SPECIMENOrdering Facility: [facility] Address: [address] [place], [place] [address] Performed By: #### 5 7021-8 ####[facility] NORMA LEWISNCLIA [id number] [place] [address] [place] CNOVSPon 04-05-2025 CNOVSP Visit (SP) Office (H EMAWS) ISAIAS SLAUGHTER ([id number]) 1935 M Date Time Provider Department 04/05/25 9:30 AM ELLIOTT SYLVESTER During your visit today, we recorded the following information about you: Temperature Pulse Blood pressure Weight 97.2 degrees 65/minute 146/77 72.8 kg Height 1.66 m Elliott Sylvester MD 04/05/2025 10:47 AM Signed (Elements copied from my note dated July 27, 2024, have been reviewed and updated where appropriate, and all reflect current assessment and medical decision making from today's encounter, April 05, 2025) HISTORY OF PRESENT ILLNESS: Isaias Slaughter is a 88 year old male with history of lung cancer, bladder cancer and 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 Oncological history: Lung cancer--He underwent a right lower lobectomy along with mediastinal lymph node dissection. Surgery was performed on 5/28/14. 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 The tumor was 5 x 4.2 x 1.8 cm in size. There was no evidence of any pleural involvement. No evidence of any lymphovascular invasion identified. There was no evidence of any perineural invasion. The patient had no evidence of any mediastinal lymph node metastasis by this tumor. The right 10R was positive for metastasis the the phenotyping was different from the lung cancer. The lymph node showed a staining pattern consistent with adenocarcinoma of prostatic primary. This was positive for PSA, positive for prostate-specific membrane antigen as well as the prostatic acid phosphatase. The adenocarcinoma was diffusely positive for synaptophysin and focally positive for chromogranin highlighting a neuroendocrine differentiating pattern. Prostate cancer; history of prostate cancer ( Lillian score 6- 7 ). This was organ confined and was treated with external beam radiation. The patient had a PSA level checked which was reported at 0.28. 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 Complained of severe muscle aches and pain, fatigue and weight loss after treatment started. Bladder cancer; history of multiple superficial bladder cancers. These have been removed through a TURB. Cystoscopy recently was positive for low-grade papillary carcinoma. Previous treatment: Lupron/abiraterone/prednisone. Zytiga became cost prohibitive. Current treatment: Lupron/ Xtandi 80 mg daily TURBT 01/29/2023-- -Extensive, endoscopically unresectable papillary tumor contiguously extending from right mid-ureter to UVJ, circumferential around ureter. -Approximately 10 superficial low grade appearing bladder tumors up to 1cm in size and a 2cm partially obstructing papillary tumor at the right ureteral orifice -1mm bulbar urethral lesions, possible tumor. -Severely dilated, torturous right ureter on retrograde pyelogram with severe hydro Pathology: Bladder, transurethral resection of tumor: -Noninvasive papillary urothelial carcinoma, predominantly low-grade with focal high-grade features. -Muscularis propria is not present for evaluation. Presents for ongoing oncologic management. 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 Increased aspirin 81 mg twice daily. No unusual bleeding or unexplained bruising. Taking 80 mg enzalutamide since May 2023 due to feeling poorly on 160 mg. 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 RECOMMENDATION/PLAN: 1. Continue xtandi 80 mg daily pending PSA 2. Lupron(eligard) today, every 3 months 3. See back 3 months, chest x ray at that visit Written and verbal health teaching given to patient, patient verbalizes understanding and agrees with treatment plan. 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 Normal [facility] Comprehensive metabolic 2000 panelon 04-05-2025 Albumin [Mass/Vol] 4.4 g/dL Normal 3.9-4.9 [facility] Comment on above: Order Comment: Speci men Type: BLOOD SPECIMENOrdering Facility: [facility] Address: [address] [place] [address] Performed By: #### 2 4323-8 ####[facility] [id number] [place] [address] [place] ALP [Catalytic activity/Vol] 94 U/L Normal 38-113 [facility] Comment on above: Order Comment: Speci men Type: BLOOD SPECIMENOrdering Facility: [facility] Address: [address] [place] [address] Performed By: #### 2 4323-8 ####[facility] [id number] [place] [address] [place] ALT [Catalytic activity/Vol] 7 U/L Low 10-54 [facility] Comment on above: Order Comment: Speci men Type: BLOOD SPECIMENOrdering Facility: [facility] Address: [address] [place] [address] Performed By: #### 2 4323-8 ####[facility]ITALWNCLIA [id number] [place] [address] [place] Anion gap [Moles/Vol] 13 mmol/L Normal 8-15 [facility] Comment on above: Order Comment: Speci men Type: BLOOD SPECIMENOrdering Facility: [facility] Address: [address] [place] [address] Performed By: #### 2 4323-8 ####[facility]ITALWNCLIA [id number] [place] [address] [place] AST [Catalytic activity/Vol] 13 U/L Low 14-40 [facility] Comment on above: Order Comment: Speci men Type: BLOOD SPECIMENOrdering Facility: [facility] Address: [address] [place] [address] Performed By: #### 2 4323-8 ####[facility] [id number] [place] [address] [place] Bilirubin [Mass/Vol] 0.7 mg/dL Normal 0.2-1.3 [facility] Comment on above: Order Comment: Speci men Type: BLOOD SPECIMENOrdering Facility: [facility] Address: [address] [place] [address] Performed By: #### 2 4323-8 ####[facility] [id number] [place] [address] [place] Calcium [Mass/Vol] 10.1 mg/dL Normal 8.5-10.2 [facility] Comment on above: Order Comment: Speci men Type: BLOOD SPECIMENOrdering Facility: [facility] Address: [address] [place] [address] Performed By: #### 2 4323-8 ####[facility] MILLWNCLIA [id number] [place] [address] [place] Chloride [Moles/Vol] 98 mmol/L Normal 98-107 [facility] Comment on above: Order Comment: Speci men Type: BLOOD SPECIMENOrdering Facility: [facility] Address: [address] [place] [address] Performed By: #### 2 4323-8 ####[facility] [id number] [place] [address] [place] CO2 [Moles/Vol] 21 mmol/L Low 22-30 [facility] Comment on above: Order Comment: Speci men Type: BLOOD SPECIMENOrdering Facility: [facility] Address: [address] [place] [address] Performed By: #### 2 4323-8 ####[facility] [id number] [place] [address] [place] Creatinine [Mass/Vol] 1.20 mg/dL Normal 0.73-1.22 [facility] Comment on above: Order Comment: Speci men Type: BLOOD SPECIMENOrdering Facility: [facility] Address: [address] [place] [address] Performed By: #### 2 4323-8 ####[facility] [id number] [place] [address] [place] Creatinine and Glomerular filtration rate.predicted panel (S/P/Bld) 58 mL/min/1.73m??? Low >=60 [facility] Comment on above: Order Comment: Speci men Type: BLOOD SPECIMENOrdering Facility: [facility] Address: [address] [place] [address] Result Comment: Melyssa mated Glomerular Filtration Rate (eGFR) is calculated using the 2020 CKD-EPI creatinine equation. This equation utilizes serum creatinine, sex, and age as parameters. The creatinine assay has traceable calibration to isotope dilution-mass spectrometry. Refer to KDIGO guidelines for clinical interpretation. In patients with unstable renal function, e.g. those with acute kidney injury, the eGFR may not accurately reflect actual GFR. Performed By: #### 2 4323-8 ####[facility] DEBBIEWNCLIA [id number] [place] [address] [place] Glucose [Mass/Vol] 115 mg/dL High 74-99 [facility] Comment on above: Order Comment: Speci men Type: BLOOD SPECIMENOrdering Facility: [facility] Address: [address] [place], [place] [address] Result Comment: The [place] Diabetes Association (ADA) provides guidance for cutoff values for fasting glucose and random glucose. The ADA defines fasting as no caloric intake for at least 8 hours. Fasting plasma glucose results between 100 to 125 mg/dL indicate increased risk for diabetes (prediabetes). Fasting plasma glucose results greater than or equal to 126 mg/dL meet the criteria for diagnosis of diabetes. In the absence of unequivocal hyperglycemia, results should be confirmed by repeat testing. In a patient with classic symptoms of hyperglycemia or hyperglycemic crisis, random plasma glucose results greater than or equal to 200 mg/dL meet the criteria for diagnosis of diabetes. Reference: Standards of Medical Care in Diabetes 2016, [place] [employer] Association. Diabetes Care. 2016.39(Suppl 1). Performed By: #### 2 4323-8 ####[facility] [id number] [place] [address] [place] Potassium [Moles/Vol] 4.6 mmol/L Normal 3.7-5.1 [facility] Comment on above: Order Comment: Micheali men Type: BLOOD SPECIMENOrdering Facility: [facility] Address: [address] [place] [address] Performed By: #### 2 4323-8 ####[facility] DEBBIEWNCLIA [id number] [place] [address] [place] Protein [Mass/Vol] 6.7 g/dL Normal 6.3-8.0 [facility] Comment on above: Order Comment: Speci men Type: BLOOD SPECIMENOrdering Facility: [facility] Address: [address] [place] [address] Performed By: #### 2 4323-8 ####[facility] MIKIEStephanieNCKASSIDY [id number] [place] [address] [place] Sodium [Moles/Vol] 132 mmol/L Low 136-144 [facility] Comment on above: Order Comment: Speci men Type: BLOOD SPECIMENOrdering Facility: [facility] Address: [address] [place] [address] Performed By: #### 2 4323-8 ####[facility] [id number] [place] [address] [place] Urea nitrogen [Mass/Vol] 17 mg/dL Normal 9-24 [facility] Comment on above: Order Comment: Speci men Type: BLOOD SPECIMENOrdering Facility: [facility] Address: [address] [place] [address] Performed By: #### 2 4323-8 ####[facility] [id number] [place] [address] [place] [facility] Prostate specific Ag [Mass/Vol] ng/mL Normal <2.60 [facility] Comment on above: Order Comment: Speci men Type: BLOOD SPECIMENOrdering Facility: [facility] Address: [address] [place] [address] Result Comment: Tota l PSA test methodology used is the Electrochemiluminescence Immunoassay by [employer]. Total PSA values by differing methodologies cannot be interchanged. Performed By: #### 2 857-1 ####[facility] LABCLIA [id number] [place] [address] [place] Cardiology Visit Reporton Cardiology Visit Report [facility] [address] [place] [phone] OFFICE VISIT Date of Service: 04/03/25 MR#: [id number] Acct: [id number] Name: ISAIAS SLAUGHTER Rep #: [id number] : 1935 Provider: MERCY tena Age/Sex: 89/M Location: [facility] [place] Status: Signed HPI HPI History of Present Illness Details: This is a 89-year-old white male who presents today for outpatient cardiovascular follow-up with a history of underlying CAD status post PTCA/bare-metal stent to the [facility]-2012 at [facility], superimposed upon hyperlipidemia, and hypertension. He denies chest, arm, jaw, or neck discomfort. He denies palpitations. He denies bilateral lower extremity edema. He denies claudication. He states occasional shortness of breath with activity such as going up stairs. He denies shortness of breath at rest, orthopnea, or PND. He denies chronic cough. He denies significant, sudden weight gain. He states occasional lightheadedness. He denies dizziness, near-syncope, or syncope. He denies blood in urine, blood in stool, or epistaxis. He denies fever with chills. He denies myalgia. He denies fatigue. His exercise level has remained stable, but notes balance issues. He walks with a cane. Intake Vital Signs 09/29/24 09:31 04/03/25 15:02 04/03/25 15:14 Height 5 ft 6 in 5 ft 6 in Weight: 169 lb 161 lb BMI 27.2 25.9 BP 160/76 H 143/74 H 149/73 H Blood Pressure Location Lt brachial Lt brachial Rt brachial Position Sitting Sitting Sitting Respiration 16 18 18 Pulse 63 62 Pulse Source NIBP NIBP Intake Visit Reasons: 6 M FU Dental Financial Coordinator Required: No Is patient in pain?: No Allergies amoxicillin Adverse Reaction (Verified 04/03/25 15:08) GI upset lisinopril Adverse Reaction (Verified 04/03/25 15:08) COUGH Ejection fraction %: 70 Have you fallen in the past year?: No Nurse's Note: Patient doesn't know what meds he takes. States he just takes what his son puts out for him to take. 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 Diverticulosis of colon Benign neoplasm of colon Hyperlipidemia Atherosclerotic heart disease of [place] coronary artery without angina pectoris 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 Bladder cancer Lung cancer Obesity (BMI 30.0-34.9) Anxiety Surgical History History of basal cell carcinoma History of transurethral resection of prostate (2001) History of sigmoidoscopy (03/19/17) History of left inguinal hernia repair History of tonsillectomy History of colonoscopy Status post cataract extraction and insertion of intraocular lens of right eye History of appendectomy Stented coronary artery (09/12/13) S/P pneumonectomy (02/21/14) Family History Mother Heart disease Type not listed Father CAD (coronary artery disease) Brother Hypertension Social History Smoking Status: Former smoker quit date: 09/27/1964 pack-years: 12 how long ago did patient quit smokin years ago alcohol intake: never substance use type: does not use caffeine: Yes Type: carbonated beverages and coffee Number of servings: 1 ROS Const Const: Negative for fatigue or weakness Eyes Eyes: Negative for change in vision ENT ENT: Negative for dizziness or balance problems Cardio Chest Pain: No Palpitations: No Edema: None Muscle aches with walking: None Resp Respiratory: Positive for SOB with activity (Occasionally with stairs, resolves quicly); Negative for SOB at rest or SOB orthopnea SOB lying down GI GI: Negative nausea or heartburn : Negative for hematuria or frequent nighttime urination/ nocturia Musc Musc: Negative for balance problems Skin Skin: Negative non-healing lesions or rash Neuro Neuro: Negative for dizziness, lightheadedness, near syncope, syncope or weakness Endo Endo: Negative for fatigue Psych Psych: Positive for depression (Since a couple years ago) Allergy Allergy/Immunology: Negative for rash Cardiology Exam Const Appearance: cooperative, healthy appearing, comfortable and no acute distress Nutritional Appearance: average body habitus and well nourished Orientation: alert, awake and oriented x3 Head Head: normal to inspection Ears: hearing grossly normal bilaterally Nose: external nose normal Face and Sinus: face symmetric Mouth: moist mucous membranes Eyes General: appearance normal, both eyes and all related structures Eyelids: eyelids normal EOM: EOM intact bilaterally Neck Neck: normal visual inspection and no JVD Carotids: normal carotid upstroke Chest Chest inspection: normal inspection (more content not included)... Normal [facility] [id number] 03-22-2025 [id number] HNO ID: [id number] Author: THANH GARCIA PT Service: ? Author Type: Physical Therapist Type: [id number] Filed: 03/22/2025 11:17 Note Text: [facility] Rehabilitation and Sports Therapy Physical Therapy Plan of Care Certification Patient Name: Isaias Slaughter : 1935 CCF #: [id number] Date: 03/22/2025 To: Kya Hinton MD From Therapist: Thanh Garcia PT RE: Patient Certification/ Recertification Your review, approval and electronic signature are required in order to comply with Payor: MMO MEDICARE / Plan: O MEDADVANTCanvace HMO / Product Type: HMO / regulations. The identified Physical Therapy PLAN OF CARE for the patient is as follows: R26.89 Balance disorder R26.2 Ambulatory dysfunction PLAN OF CARE: Assessment: Isaias Slaughter presents with chief complaint of balance issues that interferes with walking . The patient presents with impairments in balance, independence in exercise, and overall function. Patient did not complete the PROMIS? (Patient Reported Outcome Measures Information System). Prognosis for therapy is Good due to: current objective clinical presentation . The patient will benefit from skilled therapy services to meet the goals established for this plan of care as noted below. Goals for Episode of Care: established 03/22/25 Patient will report no falls. Pt will demo safe use of a SPC in 4 weeks or less Improve score on 30 Second Chair Stand to 11 repetitions to reflect decreased fall risk. Increase strength of BLE to 5/5 in order to improved pt stability with ADL's. Patient Goals: Reduce his fall risk Time Frame for Goals and Treatment : 04/19/25 Planned Interventions, Frequency, and Duration: Current Frequency: 1 visit Duration: 4 weeks Total Number of Visits Planned: 1 Planned Treatment Interventions: Therapeutic exercise (78801), Neuromuscular re-education (87987), Manual therapy (15172), Therapeutic activities (76739), Self-[place] [facility] management (21147), Gait Training (17635), Patient/Family/Caregiver Education PLAN FOR NEXT VISIT: Re-assessment. Progress LE strengthening exercises Patient demonstrates good understanding of plan of care and treatment. The above goals and plan of care were discussed and agreed upon by patient/family. For further details regarding this patient refer to the Physical Therapy electronically documented visit dated 03/22/2025. Provider Attestation I have reviewed the treatment plan for Isaias Slaughter [facility]# [id number] for the period of 03/22/25 -- 04/26/25, established on 03/22/2025. Signature certifies the need for therapy services. Normal [facility] CNTHERAPYon 03-22-2025 CNTHERAPY OT/PT/Speech Visit ( PTWS) ISAIAS SLAUGHTER ([id number]) 1935 M Date Time Provider Department 03/22/25 9:15 AM THANH GARCIA PTWS Date Time Provider Department Center 03/22/2025 9:15 AM [id number], [facility] PTWS Norma Layton Reason for Visit: PT Eval [747] Visit Diagnoses:Balance disorder [R26.89] Ambulatory dysfunction [R26.2] Allergies As of Date: 03/22/2025 Noted Allergy Reaction AMOXICILLIN 12/30/2016 6 - Diarrhea 8 - GI Upset Comments: Patient cannot tolerate this medication LISINOPRIL 10/08/2014 3 - Cough WBHMEKR-MFS-HIA REDUCTASE INHIBIT*01/28/2021 14 - Other: See Comments Comments: Patient states he will not take statins because of what they did to his . Date Reviewed: 03/07/2025 Reviewed by: Anna Pina MA - Fully Assessed Prescriptions as of 03/22/2025 - iv contrast (will be provided with radiology test) CT Urogram WO/W Inject, intravenously, once for 1 dose.No IV access, insert saline lock prior to the beginning of sedation, infusion, injection of imaging exam. Discontinue saline lock post exam. If Pt. has a central line or IVAD, may access for administration according to line specific nursing protocol. Once exam is complete flush line and de-access according to line specific nursing protocol in the CT contrast administration guidelines link. - spironolactone (ALDACTONE) 25 mg tablet Take 1 tablet by mouth once daily. - FLUoxetine (PROZAC) 20 mg capsule Take 1 capsule by mouth once daily. - amLODIPine (NORVASC) 5 mg tablet Take 1 tablet by mouth once daily. - folic acid 1 mg tablet Take 1 tablet by mouth once daily. - losartan (COZAAR) 100 mg tablet Take 1 tablet by mouth once daily. - enzalutamide (XTANDI) 40 mg tablet Take 2 tablets (80 mg) by mouth once daily. - Calcium Citrate 250 mg calcium tab Take 1 tablet by mouth once daily. - Cholecalciferol, Vitamin D3, (VITAMIN D) 25 mcg (1,000 unit) cap Take 1 capsule by mouth once daily. - aspirin (CHILDRENS ASPIRIN) 81 mg chewable tablet Take 1 tablet by mouth once daily. - Mobutxxgbmmmt-Yjrenfhv-Yeawse (CENTRUM SILVER) tab Take 1 tablet by mouth once daily. Sales Operations Consultant: Therapy (PT/OT/Speech/Resp) ID: [id number] 03/22/2025 9:46 AM Author: THANH GARCIA Signed by THANH GARCIA PT on 03/22/2025 at 9:46 AM Document text: Program_ID:[id number] Access Code: [email or web address] URL: [email or web address] Date: 03-22-2025 Prepared By: Thanh Garcia Program Notes Exercises - Sit to Stand - 1 x daily - 7 x weekly - 4 sets - 10 reps - Supine Active Straight Leg Raise - 1 x daily - 7 x weekly - 4 sets - 10 reps - Supine Active Straight Leg Raise - 1 x daily - 7 x weekly - 4 sets - 10 reps - Standing Romberg to 1/2 Tandem Stance - 1 x daily - 7 x weekly - 4 sets - reps - Standing Romberg to 1/2 Tandem Stance - 1 x daily - 7 x weekly - 4 sets - reps -------- Normal [facility] THERAPY NTon 03-22-2025 THERAPY NT HNO ID: [id number] Author: THANH GARCIA PT Service: ? Author Type: Physical Therapist Type: Therapy (PT/OT/Speech/Resp) Filed: 03/22/2025 09:46 Note Text: Program_ID:[id number] Access Code: [email or web address] URL: [email or web address] Date: 03-22-2025 Prepared By: Thanh Garcia Program Notes Exercises - Sit to Stand - 1 x daily - 7 x weekly - 4 sets - 10 reps - Supine Active Straight Leg Raise - 1 x daily - 7 x weekly - 4 sets - 10 reps - Supine Active Straight Leg Raise - 1 x daily - 7 x weekly - 4 sets - 10 reps - Standing Romberg to 1/2 Tandem Stance - 1 x daily - 7 x weekly - 4 sets - reps - Standing Romberg to 1/2 Tandem Stance - 1 x daily - 7 x weekly - 4 sets - reps Normal [facility] CNOVon 03-07-2025 CNOV Office Visit (INTMWS ) ISAIAS SLAUGHTER ([id number]) 1935 M Date Time Provider Department 03/07/25 9:40 AM KYA HINTON INTGiannaWS During your visit today, we recorded the following information about you: Pulse Respiration Blood pressure Weight 74/minute 12/minute 134/80 74.4 kg Kya Hinton MD 03/07/2025 10:29 AM Signed We discussed your blood pressure: - Your blood pressure is well-controlled, and you are feeling good. Continue taking your current medications, including spironolactone and losartan, as prescribed. - I have discontinued your potassium supplement, as spironolactone increases potassium levels. This will reduce the number of pills you are taking. - Please have blood work done in 1 month to monitor your potassium levels. This will be noted on your after-visit summary. We discussed your balance and walking: - You reported feeling unsteady at times but do not experience dizziness or falls. You are walking 20 minutes daily, which is great. - I recommend physical therapy for gait and balance to help improve your stability. This can be done at the [facility] on [address], about 1 [address] from [address]. They will work with your schedule to find a convenient time for appointments. We discussed your medications: - Please confirm with your son whether you are currently taking Prozac and, if so, the dosage. Show him this after-visit summary, as I have circled the medication for clarification. - Continue taking Xtandi (2 pills daily) for your prostate cancer as prescribed. Follow-up: - I will see you back in 3 months for a follow-up visit. Please ensure your blood work is completed before then. Kya Hinton MD 03/07/2025 12:39 PM Signed Reason for Visit Follow up HPI Isaias Slaughter is a 89-year-old male with a history of HTN, prostate cancer, and lung cancer, presenting for follow-up. Isaias reports improvement in blood pressure control since starting spironolactone last week. He denies experiencing dizziness, including when transitioning from a sitting to a standing position. He is also taking losartan and Norvasc for blood pressure management. He is unsure if he is currently taking Prozac, as his son manages his medications. Isaias reports balance issues, stating that his balance is not like it used to be. He uses a cane but feels he walks better without it. He walks 20 minutes daily outside and attends basketball games with his son. He occasionally feels like he is going to fall but has not experienced any falls. He denies any feelings of disequilibrium or unsteadiness in direction. Isaias drinks 4 eight-ounce glasses of water daily and half a bottle of Gatorade, noting that he used to drink a full bottle but reduced the amount due to its sugar content. He reports that a water pill has helped reduce fluid retention. He recently got new glasses and is scheduled to receive new hearing aids next week. He also mentions that his brother recently underwent open heart surgery and is currently in intensive care. Social History Tobacco Use Smoking status: Former Current packs/day: 0.00 Average packs/day: 1 pack/day for 12.0 years (12.0 ttl pk-yrs) Types: Cigarettes Start date: 1952 Quit date: 09/27/1964 Years since quittin.4 Smokeless tobacco: Never Tobacco comments: ETS: Father smoked in childhood home, then quit. Spouse non-smoker. Vaping Use Vaping status: Never Used Substance Use Topics Alcohol use: Not Currently Drug use: Never Past medical history, appointments, medications, allergies reviewed. Pertinent Lab/Diagnostic Studies are reviewed and discussed today Current Outpatient Medications: iv contrast (will be provided with radiology test) spironolactone (ALDACTONE) 25 mg tablet FLUoxetine (PROZAC) 20 mg capsule amLODIPine (NORVASC) 5 mg tablet folic acid 1 mg tablet losartan (COZAAR) 100 mg tablet enzalutamide (XTANDI) 40 mg tablet Calcium Citrate 250 mg calcium tab Cholecalciferol, Vitamin D3, (VITAMIN D) 25 mcg (1,000 unit) cap aspirin (CHILDRENS ASPIRIN) 81 mg chewable tablet Pfftoumadjole-Rdoiggeg-Jktxrs (CENTRUM SILVER) tab Health Maintenance Depression Screening Anxiety Screening DTaP,Tdap,Td Vaccine(1 - Tdap) Shingrix Vaccine(1 of 2) RSV Vaccine(1 - 1-dose 75+ series) Advance Directive Discussion Medicare Advantage Annual Wellness Visit@ Review Of Systems Ears/Nose/Mouth/Throat: (+) hearing loss Neurological: (+) unsteady gait, (-) dizziness, (-) lightheadedness Physical Exam BP 134/80 Pulse 74 Resp 12 Wt 74.4 kg (164 lb) SpO2 96% BMI 26.47 kg/m? GENERAL: NAD, alert and oriented SKIN: unremarkable, no rash or skin lesions. HEAD: normocephalic EYES: PERRLA, EOMI, conjunctiva clear EARS: external ears normal, canals clear, TM's normal. NOSE/SINUSES: Nares normal. Septum midline. OROPH (more content not included)... Normal [facility] CYTOLOGY NON-GYNOrdered By: Josias Bradley on 02-15-2025 Case Report Medical Cytology Rep ort Case: [id number] Authorizing Provider: Juliana Huitron PA-C Collected: 02/13/2025 01:29 PM Ordering Location: Urology Received: 02/13/2025 03:46 PM Pathologist: Josias Bradley MD, PhD Specimen: Urine, Midstream [facility] Work Phone: Clinical History r2hkgJNsXMRic9fhQQDh bGFuZzEwMz ObBaJgMme6JLDndwP6Oga4UWQdWPsu dX2vZPCqFNvwZ8udacWbfKXbRGSyVU l0aX3nmThepC1nEkVmXaWxPXVote2v umCjMV7ojKIdtLMzmUNdWB6= [facility] Work Phone: Disclaimer w1blsNSjDBQqr2exWYJv bGFuZzEwMz NcZnRuYmpcdWMxIHtccnRmMVxlcGlj DTPpJPFcf2tmr9kwyHOcYRFmk1zgc4 FmyXEiyUZsZPnvuSAhacLusz52tLJ6 lF66VO4nORPdPjJ6YRTpnrC9Wjn9TZ IkZNJrjHJyJ957s4msz3txnoYowMA9 GPUhFVOmM8FaNT9kDSGraWSyE24agW MrUMQ7OXUmKBUpcJQfPUFtOHG9GGBn bCZhY3cyNDRxQZ5hpxgjRVsfEDupRV JagYL6SQBvtUDeB3VoXGLiIOkeDSIx lng5IyKtPw5gbJPcbUbdTFvjD7loaR 2rRuA4FDevC7uixF9hVUm4IWnoASOi qOT1ibE8QRQevJMwI5AykJ0iUAQcYN 9ewfb6y8toKSI4XRtsZPYoHnM5akW1 NDBccGFyZFxwbGFpblxiXGZzMTZcY2 IbFTxaQt4qCSBsizllHIB5CDuahEMg KAPhp5ShKVwLYLrmEOrqR6lziU4guk tfyZFpHIQeJOSgZIQZRCIxx2WpED1d VLVtsLIjSLP2NIJkj2MkR0Lxs3OplV 0nwT2tcAagnT3zhEKwfILwqWbqjY6d kG6jWjj3p1Qdc7FhqmImQIUfMWDxvK JjvJ8lTD6vMiRfrg9imMR9JZd5QjHb VAg5UNTwf44agMDaxKAkzZE3OURoNB VuIGRldGVybWluZWQgYnkgdGhlIHBl hvFbja9nqkfxxXEyc4WjbV3ypAB0oJ QsjV6mO5dyrpAhSH9eCVUgcK0vAirc DKAyXlZuhKMQPsGLi74dzBYlJOWnzC qtiD2vbTUcdgNvJJDvp9OcqT3gkDZA IREjB0xnKMFKZOLnlwXzWS66LArZEX qvMYJtfXL1joGPd2NvxWJkeStwPYmf t78hX9TpRQTscANLn1SicJZmzEpnDd znvqkfYVRUDNA1g23wFR1bkWz2FVsp AU9qzyY7CUmim6DsmEHoVOPAniPvMT 1lIpy7VNNrAMVhaQUlqVNFCR97BRWs SJ9wxyDrygTFDQWwbBlpIw7kcOxgCR 6etJz6PXinSY6eSWYhgS4yPIrsz6Aa jLQcKPTgfhEdSN5owk6iadAbu78vjU O4YB65MEiffLmgK4pHPKMxESF0tJJg dRKtwIXrPJ9eVXZwgfMgy7LfFE2sBV UyCMGzNGFjz5TcNQ6fuNLvs1NloDW7 SUTeKGBpCXRxNPVaQBMbz8ApGMQivt 64BXAsFyarpQnrRRIXME7fGtLrQCeY FOdrCOLnL9JcFIPlTFU2obGufbKBQA oFPTRwOLR9YDchSyffUKE0mzLdQSGq g0DhHCahL9ruJ88jjIkoqPo4aTM2KC Y5jY0pSnXPtYDkSRO2XLK3msOarmKc iXIpUUOvp9YjI5efofjwHWjqtJDpgU 3pDNWyJMPhWNQjIRVwf0JpFTDyi6Ye ItYvzjKpPAKsAKHtDSPdnE08LRO3hO ibdCfoaqKaZT7yXJMckvYgXBKfFHRg nR4bWR3nwYSbabGmVC9sMW7yT3A9qM MgFMDdmwKlf5ixIBQ9JEkpTWSwcWPx kYIkUPXwrRlvIPRxsn47 [facility] Work Phone: FINAL DIAGNOSIS g1wjaJJgWPGleUPfYsGh MDAwXGFuc2 lcZGVmbGFuZzEwMzNcZnRuYmpcdWMx UNQtSgFeg1amt362uMRyi3csUBPwMq N0eNUbDQJwuBDxM762JEBkHYtma1vk f6VeVRPauKPdy4R3XXAVreoubZo8eR faN87xs8S5LciuU9vhIZSjPMTcB8Sq BX7mPVWfPsy7EGZ2BPB6BBFzCCFmD2 UeEJ5bRMTyvQHpAIkohzGxUIpxfxKh uqTuPhy7PTP7LYN5cRops9T8lIXypH YpwXviSaArYeLcCyBIz3BxHAv9uRid I2YfQRApVvH8qXGoYHVkAIgeFFJhMD MhpqS4rG46LXdqwbL0dVIoa8Pdt60y b429xZ3qdDPaZPJ7SKIhLICbdNGzQW NhNGZ1JXNxyNCuJ3u2LfOvpUXuG9S9 XlXuuUFnN6K2UxAgcKGaZ7E3GmJtbD BfULIybNcbHHgna256FGY8ZsMtLG1u X8Vys9B9bG5syUPxBYIetFHfEvOdGE Ehfz7wlKMuILynq5WkFPD2mhF5kRZu eFCdVQEsAG71Whvlo0MqRqyjABE2ZO FriqTqn8Knx5gfZtZssyZyU2hjA2Lr LGWdACEpGHYrQfDersCji1Shy4FmgZ VokBv7u0ogVXVlKEAmrSeaf3oqIQK8 SRCqH6E6bXPeo5doFVxbGMChdHQ8xn hnZPbyYWOaxcK6fsyfZTxhWYFngJA9 jbzuDQvwIRIyJxR9bnluXHpzTSRkZD S7UrGjDIBix4Erchv6OfIjd6RiuWLc WUoyU25ie467KOMxpsOeO2pdeDDsrb jljQDmhtyuFAyrhnC6NAXcHVExBLtc XGYxXGZzMjJcbGFuZzEwMzNcaGljaF xbNQwdHeUgVGXhQDofL0bsNyIiH0Ng WJEhDwQaJcVLQI6xQIPuhsLwHW2dAU I2ypVcdXUkHTpsCHIvNJBrPTIpPGOo WT7aA7V8rIQtHSLkxuPkcTgfUTznRX OoUUJxg3PnZUyeOElyS2DoM2ful57g LlxwYXIgICAgICAgICAgIFxwYXIgIC DyAIKkbIngfH8xWtCnYoPgEbalYN6u GPEeX2mnnHRcQNTtKNWjL5hjJjQvaY 9jaFxmMVxmczIyXGJccGFyXHBhcmRc cCqdiK8lXdEhXwRtQOyppPYfyknqUU xiyvAyYJfviadnTAEsZVexV6akGjGf XDUwdUcjWFpdn8XxPSSmZHHzDsEdDk n3PCFxSUYfDBOzDLXbkutuhZjbzCUk xgdjPBhfreE5TRLbKCzjQXYiSTNtOv JcbGFuZzEwMzNcaGljaFxmMVxkYmNo ODDsVMduE2xeUdRvKyViBqeeRXVrgg xwYXJkXHBsYWluXGYwXGZzMjRccGxh yR2lPpRiToRhAjmwTR5sBGGzG1hvmT JvQLTgPKJbM6juNjWcxZ8qvSwtDXko MyIzMvHpWtuyYYsaDIRduNlhdY8vTb TuOdJaZqtkQJ5pMVSvJ6rqtMYmEJQg ZOTgR8kdBcSguE4zmLlhVVkjksQfSO Bhcn0= [facility] Work Phone: Gross Description w4tkiYYbYBEiaCMWHKSp OYGbHP5dbA iqgFw3lWnsFQCbhqI7oQVkNVpkt5su QCB7i0oiwnLDIqpxLGKaAS3lBBoyAH UmQS3oAlNyURIyFmNwXRNasGMiebPl XiXuGKZswBPpaNW7MEHzNC0eweftHC ntJCmrMWBhkkI4GQAvfAVyQ7SfRXPd NP4zkicwQHV7QWWLKaidCt4nrIDxoL juKpIcXpPiFYHpPQVyFYQjz0pbocOD fdbtcWe8tE9VQZKwV0VaPA5Rs7ekKW RuuXAgHMZ3XKepk1xgVEfuTAZ0GSXz FZKlINJaSZ3JBtUcZWe2OXX2ExCjHq B8SGy5OOWFUQCoWAJ7QuJ5HvDbUWo5 OTkgXFxuaCBcXHQgMSBcXGZsIFxcbm F1j7xhJRTnwACkWQJ8EAcgz6edJWid JMA3DVRvYwVgYENzKY3PPaQeSOj3SM K9GhBdYkY8VKj9UJHSExWkWlGfTmY3 RVL0HtAfDDu1MBh0JWrABvDbWDz1Ne Z1BlOnKgB5HVT6VuBeYMSnSlTjHPLu DXCyUNkhuEUyXR7hcDhaMWIjFT4GKE EwNQfwQUBfLjRuRM1jLJXbhaSgFO2d JVN9xvGxhKjmfULgwQdidyCiXOSzph GFKogfSJMqXT0UXTLbZCfbUNx4ffSg SZGlUuVfHDNqT10fq4MLu1MbHZ7UMU n5rtZsahEQZtyhU2HiXAUjl5ApW2W9 LJAyDIuwq5lpFRCkLWtjl2CpTDzFZT IBYJ9JIW1jtDU8ZRvWIWKHJ0fYmLE1 ZKyoKFbnkGB5u8iyqSDko8i2PAocYS Z9lRGiYXMbb2vvwSQvNRmgVrgqkFTw rdZ9RXaDMLXPCAcUYjHyPD6mGCaUD3 ZBIrW7WXJbBcE6vCI1WZ12OHMzZBHg sYCzDDlrN909RODoSMhmFHp9wyPaWM FnLyXfPScdvh55IIE8f7kodQIuXZtk RpseiIGildQ3SRnSHQWNREcVWuQiLG 8jGLwZP8BHUFlYVaxuGOT0EEC7Dchv hBpyRpmqavOzoTEiIbOTuY34RMwku5 r6FALuJNlpv8tjRABoBYdut0HqKWkT GLTSDE8WLD2pgNO5FMbGTHUFCTahVR R3UZE2FnjubEtyBbpaixHmiECxEiJC fD3snMuqsD1jhFVyG7hmUxNcIaXnOL Qol4BcF3S9ARBeBNwxu5kuGOQyKKjn a6QcWHeDDEJZLQ9FIO6dlNV2WCqNXG ADC7kTvLG1SIzgHMhvyXH1x5wiaGUd p1y7KWzhSOL1hBCagRmzt5atmLQhWG uiSorzkQBlawC6AWjASRBFLPyRMeWt HQ2dZJyTA5QDRsC0XOAqRnJ6iWV4W6 31AIAnVWCpxLYvPWgjY985VSKnLZml NPm8odCcERLxWqAkDQ1qFLlbcx02YT T7g1bsgEJuFWyvXuvzdOIjriH1UOuT ZXPKHNeSDyXbQP3gBHeLW4ULNAcWHx bdGOAdAva4NYt1hWysVwkojbCihENz XyRSxD2QuDqkRLWefNjePrtmwET6DP yvBaawvQ7aiSUTMYPWMdxCJfbtvjGn QJ5DJGVYOZ8VzXI5QRR7X3q1uNS7x0 lakXZsl0e2EJupKIF3xUslwLJzpmcz rMKlzSkuxjVzZDYryfJlSHLlNO7qhL LaPQ3YBQGeGmQyNGZkR7lrEELwGF7B MWFlVZpkghKtAZRvK75bw4DXj9Rba0 ngtZeue6CnxGBkIE67YSJcuFOsBUU6 ZQ9faWosKSVaXLqlbQTmHQSMRjgwgP FpbiANCn0= [facility] Work Phone: Performing Lab e1nyjFWhQLEeo8tfVOUz bGFuZzEwMz NcZnRuYmpcdWMxIHtccnRmMVxhbnNp BNQjVlfpollnRUJcCPY3doPbRCRkQX O8SSF1VyKiBNTmUcPiKAL4VPApg8nx e6FzfEUhqFKhCHwohCQhylGfrm96iA Y8lH18UJ1jXCTcYnA2MQHddlL7Idj2 DJJwDDTizBRtA833u6mmv8bdwvRxiT N1kRxuMUMlrbnoDhC7FZztHWSlvure FWw3UApgSQWteDS9DYXvzVQnW0TaMT ToAB4jvcj0XAI1ANomCYEeBhK2XAQi nBJiIZVjqKbaPQxze575VKW4QqZcLG Nvb0O0emJaPxQcDUMebMS0dxF0MRWk UB6inlnhn6nkBKkcLEjnMFUqqvG2pt N8RGSsjNDtG7FdhR3iUTZbMQ4bdmqv h6vbDOV9TKepJWXcTMSjZNbpSANiQf EnYUKdvA9dW5GzZVNqcCLpufZuhShf J8u3o3HaD1afb7aaE5hmpBFqQ2GqEF 2trsbbaLFfAg5nuHDgZNN7OyUEnIM5 VVlsfmNbT0kqyxmyKY4rgI8dK0NzbQ QjXApsp4BdeLHuIAcrHx2gUPMfqmto BVm9VTYbXNTybHbtVIQ0DD88NMufLG VzayBMMjEsIENsZXZlbGFuZCBPSCA0 TPZ9CGXfN0hZRQleNlMADAC6DwW1EW zqEIK4rXiuwiPlIXtnnGeoBNNeSVUi EL1kyFrnsSg8vWgwIIZousT0dMAkJE wds5piLZZ1d2ckwjcqWRInLMdyWx8v vIXviDdoCyAjRGFsPRl0eI79KBNakP 5mfNJnINt3KSDzbDIgzpKvFtPnQQHk eEGcrXS3FHOuRU6zblwsSGhcKNekMD DopxG7YEXciNJlB4LfVXJfEC5micjo WZS2PMneTROqAKJ4QzOaPLLqi4Zsfh m4KnEzyQt3v6kyGNAjUIObiYdas0ho IZB8CSFnhJAmM6tflY6xUYBiYH7fva bbl0eyRGzdZEqmGDIirNK4hrY9MZTe vBWlD9WlqS5xWATnKEVconNcdGdebO 1cRtTvGWGTeXEqwk5ywEytMOnglWYa hPJzvRF2gK7pYRNhfvSynf4kTGJoyT fgG7lthbBcLX7kNPNzaC3sFlYSSGbr CAXwrUQ9bcKIi2GufXJeqUHJTUOtwg L8r0E9UHH9AMYjXQU9E8agDVMPerYh uWWzDMXpp0auTKNvQYWTpRF9DFekqv UjN4llQSFwEOUbLWNYWNxRNwMlBwAz CtL1LVc0CLDzplAaoJUrVPdtMf5sRR MzfdkeYSmcGKG6g7M4ANvrtGVqahKB GG5rjBTduryeBLZksPQkbO4= [facility] Work Phone: [facility] Work Phone: BACTERIAL CULTURE, URINEOrde red By: Yaya Fields on 02-14-2025 Bacteria identified Cx Nom (U) No growth (<1,000 CFU/ml) [facility] Bacteria identified Cx Nom ( U)Ordered By: Yaya Fields on 02-14-2025 Interpretation and review of laboratory results Normal [facility] [place] 02-14-2025 GAYATRI Telephone ([place]ELAIDA) ISAIAS SLAUGHTER ([id number]) 1935 M Date Time Provider Department 02/14/25 REHAN YUEN During your visit today, we recorded the following information about you: Adam Pinzon Odette 02/14/2025 9:30 AM Signed Pt confirmed cysto with Dr. Yuen in [place] [facility] 03/14/25 @ 9:[address] prior 02/23/25. Ref by Valeria Huitron. Vivien Allergies As of Date: 02/14/2025 Noted Allergy Reaction AMOXICILLIN 12/30/2016 6 - Diarrhea 8 - GI Upset Comments: Patient cannot tolerate this medication LISINOPRIL 10/08/2014 3 - Cough EYAIVRB-DIR-MHI REDUCTASE INHIBIT*01/28/2021 14 - Other: See Comments Comments: Patient states he will not take statins because of what they did to his . Date Reviewed: 02/13/2025 Reviewed by: Gaby Harris LPN - Fully Assessed Reason for Visit: Appointment [[id number]] Prescriptions as of 02/14/2025 - iv contrast (will be provided with radiology test) CT Urogram WO/W Inject, intravenously, once for 1 dose.No IV access, insert saline lock prior to the beginning of sedation, infusion, injection of imaging exam. Discontinue saline lock post exam. If Pt. has a central line or IVAD, may access for administration according to line specific nursing protocol. Once exam is complete flush line and de-access according to line specific nursing protocol in the [place] contrast administration guidelines link. - spironolactone (ALDACTONE) 25 mg tablet Take 1 tablet by mouth once daily. - FLUoxetine (PROZAC) 20 mg capsule Take 1 capsule by mouth once daily. - potassium chloride ER (KLOR-CON) 20 mEq tablet Take 1 tablet by mouth once daily. - amLODIPine (NORVASC) 5 mg tablet Take 1 tablet by mouth once daily. - folic acid 1 mg tablet Take 1 tablet by mouth once daily. - FLUoxetine (PROZAC) 10 mg capsule Take 1 capsule by mouth once daily. - losartan (COZAAR) 100 mg tablet Take 1 tablet by mouth once daily. - enzalutamide (XTANDI) 40 mg tablet Take 2 tablets (80 mg) by mouth once daily. - Calcium Citrate 250 mg calcium tab Take 1 tablet by mouth once daily. - Cholecalciferol, Vitamin D3, (VITAMIN D) 25 mcg (1,000 unit) cap Take 1 capsule by mouth once daily. - aspirin (CHILDRENS ASPIRIN) 81 mg chewable tablet Take 1 tablet by mouth once daily. - Avfbavhoeuwmb-Chlibudn-Roqugr (CENTRUM SILVER) tab Take 1 tablet by mouth once daily. 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] 07/20/2012 Presence of bare metal stent in right coronary *10/15/2013 HLD (hyperlipidemia) [E78.5] 01/08/2014 CAD (coronary artery disease) [I25.10] 01/08/2014 Mediastinoscopy, right thoracotomy, right lower*02/01/2014 DVT prophylaxis [ETS2289] 02/22/2014 10/04/2017 DISPOSITION AND FOLLOW-UP [V999.01] 02/22/2014 09/10/2014 Acute postoperative pain [G89.18] 02/24/2014 06/11/2016 Carcinoma of lung (HCC) [C34.90] 05/17/2014 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] 09/26/2014 Hemolytic anemia (HCC) [D58.9] 10/11/2014 10/04/2017 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] 02/13/2015 10/04/2017 History of basal cell carcinoma [Z85.828] 06/10/2015 Neoplasm of uncertain behavior of skin [D48.5] 06/10/2015 06/11/2016 AK (actinic keratosis) [L57.0] 06/10/2015 Malignant 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 *07/05/2015 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 10/04/2017 Left inguinal hernia [K40.90] 02/19/2017 Prediabetes [R73.03] 08/11/2017 Mediastinal mass [J98.59] 05/31/2018 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]04/29/2021 Hydronephrosis with ureteral stricture, not els*12/09/2022 Stage 3a chronic kidney disease (HCC) [N18.31] 02/05/2023 Unsteady gait [R26.81] 07/20/2023 Essential thrombocytosis (HCC) [D47.3] 10/17/2024 Encounter Status:Closed by ODETTE SYED on 02/14/25 Normal [facility] Bacteria Ur Culton Bacteria identified Cx Nom (U) CULTURE, URINE: No growth (<1,000 CFU/ml) Normal [facility] Comment on above: Performed By: #### 6 30-4 ####[facility] [id number] [place] [id number] [place] CNOVon 02-13-2025 CNOV Office Visit (UROLWS ) ISAIAS SLAUGHTER ([id number]) 1935 M Date Time Provider Department 02/13/25 11:30 AM JULIANA HUITRON UROLWS During your visit today, we recorded the following information about you: Temperature Pulse Respiration Blood pressure 97 degrees 72/minute 16/minute 150/82 Weight Height 73 kg 1.676 m Gaby HarrisANTWON 02/27/2025 5:13 PM Signed Verified name and date of . CC Post Void Residual HPI: Isaias Slaughter is a 89 year old male. The patient is here now for an appointment with JENNIFER Quintanilla, GRACY KIM. Procedure: Explained procedure to patient and verbalizes understanding. Performed a PVR. Patient urinated and instructed to empty bladder as much as possible just prior to having PVR done using bladder ultrasound scanner. Results of scan: 0 mL The patient tolerated the procedure well. Plan: Appointment with Juliana Prak PA-C 02/13/2025 12:[address] Urogram to be scheduled at [facility] Cystoscopy to scheduled at [facility] Urology they will contact patient # Pt # [phone] Patient family is out of town for 1-2 weeks and will need to have them for transportation () Urine Culture - - Pending Urine Cytology- - Pending Juliana Huitron PA-C 02/27/2025 5:13 PM Signed COUNT INCLUDES THE [facility] [place] [facility] PATIENT CLINIC NOTE (M) Some elements copied from his previous note, which have been updated where appropriate, and all reflect current medical decision making from date of this visit. Note was generated by [employer] and edited as appropriate SERVICE DATE: February 27, 2025 NAME: Isaias Slaughter GENDER: male CHIEF COMPLAINT: presenting for evaluation of hematuria. HISTORY OF PRESENT ILLNESS: The patient is an 89-year-old male presenting for evaluation of hematuria. Hematuria: - Gross hematuria onset 7-10 days ago. - Observed blood in urine stream while standing; urine appeared clear a few hours later. - No hematuria observed today. - Denies dysuria. - No known history of nephrolithiasis. LABS: PSA (ng/mL) Date Value 01/11/2025 <0.02 10/19/2024 <0.02 07/27/2024 <0.02 10/14/2021 <0.02 07/22/2021 <0.03 04/21/2021 <0.03 Creatinine Date Value Ref Range Status 01/11/2025 1.11 0.73 - 1.22 mg/dL Final 10/19/2024 1.16 0.73 - 1.22 mg/dL Final 07/27/2024 1.10 0.73 - 1.22 mg/dL Final Testosterone (ng/dL) Date Value 04/25/2018 125 10/26/2016 177 07/09/2015 229 Hematocrit (%) Date Value 01/11/2025 50.2 10/19/2024 49.7 07/27/2024 46.4 10/14/2021 45.7 07/22/2021 44.2 04/21/2021 40.4 PSA (ng/mL) Date Value 01/11/2025 <0.02 10/19/2024 <0.02 07/27/2024 <0.02 10/14/2021 <0.02 07/22/2021 <0.03 04/21/2021 <0.03 MEDICATIONS: spironolactone (ALDACTONE) 25 mg tablet Take 1 tablet by mouth once daily. FLUoxetine (PROZAC) 20 mg capsule Take 1 capsule by mouth once daily. potassium chloride ER (KLOR-CON) 20 mEq tablet Take 1 tablet by mouth once daily. amLODIPine (NORVASC) 5 mg tablet Take 1 tablet by mouth once daily. folic acid 1 mg tablet Take 1 tablet by mouth once daily. FLUoxetine (PROZAC) 10 mg capsule Take 1 capsule by mouth once daily. losartan (COZAAR) 100 mg tablet Take 1 tablet by mouth once daily. enzalutamide (XTANDI) 40 mg tablet Take 2 tablets (80 mg) by mouth once daily. Calcium Citrate 250 mg calcium tab Take 1 tablet by mouth once daily. Cholecalciferol, Vitamin D3, (VITAMIN D) 25 mcg (1,000 unit) cap Take 1 capsule by mouth once daily. aspirin (CHILDRENS ASPIRIN) 81 mg chewable tablet Take 1 tablet by mouth once daily. Fyyjovnxutjmh-Xgvsonst-Mzgjtw (CENTRUM SILVER) tab Take 1 tablet by mouth once daily. iv contrast (will be provided with radiology test) CT Urogram WO/W Inject, intravenously, once for 1 dose.No IV access, insert saline lock prior to the beginning of sedation, infusion, injection of imaging exam. Discontinue saline lock post exam. If Pt. has a central line or IVAD, may access for administration according to line specific nursing protocol. Once exam is complete flush line and de-access according to line specific nursing protocol in the CT contrast administration guidelines link. 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 Normal [facility] CYTOLOGY NON-GYNon 5 AP DISCLAIMER Normal [facility] Comment on above: Order Comment: Speci men Type: URINE SPECIMEN Ordering Facility: [facility] Address: [address] [place] [address] Result Comment: Brian perez Developed Test (LDT) Disclaimer: Performance characteristics of immunohistochemical, immunofluorescent, and chromogenic in-situ hybridization tests have been determined by the performing laboratory within [facility] and Laboratory Medicine Department ([facility], [facility], [facility], [facility], [facility], [facility], or [facility]) in a manner consistent with CLIA requirements. One or more of these tests may not have been cleared or approved by the FDA. RT-PLM is regulated under CLIA as qualified to perform high-complexity testing. These tests are used for clinical purposes. These should not be regarded as investigational or for research. Positive and negative controls stain appropriately. Performed By: #### C YTONODylan #### [facility] CLIA [id number] [address] [place], [place] [address] [place] [address] [place] CASE REPORT Normal [facility] Comment on above: Order Comment: Speci men Type: URINE SPECIMEN Ordering Facility: [facility] Address: [address] [place] [address] Result Comment: [facility] Cytology Report Case: [id number] Authorizing Provider: Juliana Huitron PA-C Collected: 02/13/2025 01:29 PM Ordering Location: Urology Received: 02/13/2025 03:46 PM Pathologist: Josias Bradley MD, PhD Specimen: Urine, Midstream Performed By: #### C YTONON #### [facility] CLIA [id number] [address] [place] [address] [place] CLINICAL HISTORY gross hematuria Normal [facility] Comment on above: Order Comment: Speci men Type: URINE SPECIMEN Ordering Facility: [facility] Address: [address] [place] [address] Performed By: #### C YTONON #### [facility] CLIA [id number] [address] [place] [address] [place] FINAL DIAGNOSIS Normal [facility] Comment on above: Order Comment: Speci men Type: URINE SPECIMEN Ordering Facility: [facility] Address: [address] [place] [address] Result Comment: A - Urine, Midstream Negative for high-grade urothelial carcinoma. at 1134 EDT Performed By: #### C YTONON #### [facility] CLIA [id number] [address] [place] [address] [place] FINAL PERFORMING LAB Normal [facility] Comment on above: Order Comment: Speci men Type: URINE SPECIMEN Ordering Facility: [facility] Address: [address] [place] [address] Result Comment: Tech nical component, body rolling machine tender screening performed at: [facility], [address] [place], [place] [id number] CLIA: [id number] Diagnostic interpretation performed at: [facility], [address] [place] [address] [place] [address] CLIA# [id number] Hospitality Housekeeper: Corona Ryan MD Performed By: #### C YTONON #### [facility] CLIA [id number] [address] [place] [address] [place] GROSS DESCRIPTION Normal [facility] Comment on above: Order Comment: Speci men Type: URINE SPECIMEN Ordering Facility: [facility] Address: [address] [place] [address] Result Comment: A. U rine, Midstream 8 cc clear yellow fluid . ThinPrep prepared. Performed By: #### C YTMIKAYLAN #### [facility] CLIA [id number] [address] [place] [address] [place] UA DIP, URINE (POC)on 2024 BILIRUBIN UA (POCT) Negative Negative [facility] CLARITY UA (POCT) Clear [facility] COLOR UA (POCT) Yellow [facility] GLUCOSE UA (POCT) Negative Negative mg/dL [facility] Hemoglobin Ql (U) Negative Negative [facility] KETONE UA (POCT) Negative Negative mg/dL [facility] LEUKOCYTES UA (POCT) Negative Negative [facility] NITRITE UA (POCT) Negative Negative [facility] PH UA (POCT) 7 4.5 - 8.0 [facility] Protein Ql (U) Negative Negative mg/dL [facility] SPECIFIC GRAVITY UA (POCT) 1.015 1.005 - 1.030 [facility] UROBILINOGEN UA (POCT) 0.2 Normal E.U./dL [facility] Location:[facility], [address], [place], [address] [facility] POINT OF CARE [facility] CNPN Telephone (INTMWS) ISAIAS SLAUGHTER ([id number]) 1935 M Date Time Provider Department 02/06/25 KYA HINTON INTMWS During your visit today, we recorded the following information about you: Ramonita Ferguson LPN 02/06/2025 11:12 AM Signed Patient calling has noticed since he started taking the Spironolactone, he has blood colored urine when he first starts to urinate but clears before he is done urinating, has no clots. Patient asking if that is side effect of the medication? He is not having any burning or any issues, he is drinking plenty of fluids. Please advise Kya Hinton MD 02/06/2025 5:02 PM Signed I do not think it is related but its good that it does not continue. RegardsKya MD, Mary, LPN 02/07/2025 8:53 AM Signed Called patient and updated, patient requesting a referral to urology Dash Abraham LPN February 07, 2025 8:53 AM Kya Hinton MD 02/09/2025 11:07 AM Signed Consult placed. Please help him with the consult scheduling Regards, Sailaja Mckeon MD 02/09/2025 12:45 PM Signed Spoke with patient and scheduled. Sailaja Sesay Allergies As of Date: 02/06/2025 Noted Allergy Reaction AMOXICILLIN 12/30/2016 6 - Diarrhea 8 - GI Upset Comments: Patient cannot tolerate this medication LISINOPRIL 10/08/2014 3 - Cough IDAOMSQ-GFR-JJF REDUCTASE INHIBIT*01/28/2021 14 - Other: See Comments Comments: Patient states he will not take statins because of what they did to his . Date Reviewed: 01/23/2025 Reviewed by: Dash Abraham LPN - Fully Assessed Reason for Visit: Patient Question [8627] Primary Visit Diagnosis:Painless hematuria [R31.9] Order(s):CONSULT TO UROLOGY [9041] Order #: [id number]: 1 FUTURE Prescriptions as of 02/09/2025 - spironolactone (ALDACTONE) 25 mg tablet Take 1 tablet by mouth once daily. - FLUoxetine (PROZAC) 20 mg capsule Take 1 capsule by mouth once daily. - potassium chloride ER (KLOR-CON) 20 mEq tablet Take 1 tablet by mouth once daily. - amLODIPine (NORVASC) 5 mg tablet Take 1 tablet by mouth once daily. - folic acid 1 mg tablet Take 1 tablet by mouth once daily. - FLUoxetine (PROZAC) 10 mg capsule Take 1 capsule by mouth once daily. - losartan (COZAAR) 100 mg tablet Take 1 tablet by mouth once daily. - enzalutamide (XTANDI) 40 mg tablet Take 2 tablets (80 mg) by mouth once daily. - Calcium Citrate 250 mg calcium tab Take 1 tablet by mouth once daily. - Cholecalciferol, Vitamin D3, (VITAMIN D) 25 mcg (1,000 unit) cap Take 1 capsule by mouth once daily. - aspirin (CHILDRENS ASPIRIN) 81 mg chewable tablet Take 1 tablet by mouth once daily. - Hdkcevnufhirf-Oqikifnb-Nnmbui (CENTRUM SILVER) tab Take 1 tablet by mouth once daily. 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] 07/20/2012 Presence of bare metal stent in right coronary *10/15/2013 HLD (hyperlipidemia) [E78.5] 01/08/2014 CAD (coronary artery disease) [I25.10] 01/08/2014 Mediastinoscopy, right thoracotomy, right lower*02/01/2014 DVT prophylaxis [XKY7517] 02/22/2014 10/04/2017 DISPOSITION AND FOLLOW-UP [V999.01] 02/22/2014 09/10/2014 Acute postoperative pain [G89.18] 02/24/2014 06/11/2016 Carcinoma of lung (HCC) [C34.90] 05/17/2014 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] 09/26/2014 Hemolytic anemia (HCC) [D58.9] 10/11/2014 10/04/2017 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] 02/13/2015 10/04/2017 History of basal cell carcinoma [Z85.828] 06/10/2015 Neoplasm of uncertain behavior of skin [D48.5] 06/10/2015 06/11/2016 AK (actinic keratosis) [L57.0] 06/10/2015 Malignant 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 *07/05/2015 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 10/04/2017 Left inguinal hernia [K40.90] 02/19/2017 Prediabetes [R73.03] 08/11/2017 Mediastinal mass [J98.59] 05/31/2018 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]04/29/2021 Hydronephrosis with ureteral stricture, not els*12/09/2022 Stage 3a chronic kidney disease (HCC) [N18.31] 02/05/2023 Unsteady gait [R26.81] 07/20/2023 Essential thrombocytosis (HCC) [D47.3] 10/17/2024 Encounter Status:Closed by SAILAJA SESAY on 02/09/25 [facility] CNOVon 01-23-2025 CNOV Office Visit (INTMWS ) ISAIAS SLAUGHTER ([id number]) 1935 M Date Time Provider Department 01/23/25 2:40 PM KYA HINTON INTGiannaWS During your visit today, we recorded the following information about you: Pulse Blood pressure Weight Height 67/minute 147/83 74.8 kg 1.651 m Kya Hinton MD 01/23/2025 5:11 PM Signed Reason for Visit Follow up HPI Isaias is a 89-year-old male with a history of HTN, 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 Isaias reports elevated blood pressure readings, with a recent measurement of 157/?. He is currently taking antihypertensive medications daily, which are organized in a pill box by his son, Jayesh. He denies experiencing dizziness or lower extremity edema. He inquires about the possibility of increasing his antihypertensive medication dosage. 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 He also has metastatic prostate cancer and is currently taking 2 daily doses of Xtandi. He denies any issues with medication adherence. Isaias reports difficulty with hearing and vision. He has an upcoming appointment on the to address his vision issues and plans to obtain new hearing aids, as his current ones are malfunctioning. He spends a significant amount of time watching television and expresses frustration about being unable to engage in activities such as shooting and golfing. Isaias is able to perform activities of daily living, including dressing, toileting, and showering, with the assistance of grab bars and a shower seat. His grandson provides additional support, such as taking out the trash and accompanying him on outings. Isaias reports balance issues but does not use a cane. He is able to cook, do laundry, and wash dishes independently. His diet includes hamburgers, spaghetti, beans, oatmeal with blueberries, waffles, and ham salad sandwiches. He drinks one bottle of Gatorade daily. He receives additional food from his granddaughters and heqnezbh-iw-vdq. Bp was elevated on recheck, we started him on Spironolactone. Social History Tobacco Use Smoking status: Former Current packs/day: 0.00 Average packs/day: 1 pack/day for 12.0 years (12.0 ttl pk-yrs) Types: Cigarettes Start date: 1952 Quit date: 09/27/1964 Years since quittin.3 Smokeless tobacco: Never Tobacco comments: ETS: Father smoked in childhood home, then quit. Spouse non-smoker. Vaping Use Vaping status: Never Used Substance Use Topics Alcohol use: Yes Comment: rare Drug use: No Past medical history, appointments, medications, allergies reviewed. Pertinent Lab/Diagnostic Studies are reviewed and discussed today Current Outpatient Medications: FLUoxetine (PROZAC) 20 mg capsule potassium chloride ER (KLOR-CON) 20 mEq tablet amLODIPine (NORVASC) 5 mg tablet folic acid 1 mg tablet FLUoxetine (PROZAC) 10 mg capsule losartan (COZAAR) 100 mg tablet enzalutamide (XTANDI) 40 mg tablet Calcium Citrate 250 mg calcium tab Cholecalciferol, Vitamin D3, (VITAMIN D) 25 mcg (1,000 unit) cap aspirin (CHILDRENS ASPIRIN) 81 mg chewable tablet Ujbweemibyknw-Etoolnql-Yydhta (CENTRUM SILVER) tab spironolactone (ALDACTONE) 25 mg tablet Health Maintenance Depression Screening Anxiety Screening DTaP,Tdap,Td Vaccine(1 - Tdap) Shingrix Vaccine(1 of 2) RSV Vaccine(1 - 1-dose 75+ series) Influenza Vaccine(1) Covid-19 Vaccine( season) Advance Directive Discussion@ Review Of Systems Eyes: (+) visual disturbances Ears/Nose/Mouth/Throat: (+) hearing changes Cardiovascular: (-) edema Neurological: (+) gait imbalance, (-) dizziness Physical Exam BP 147/83 Pulse 67 Ht 165.1 cm (5' 5) Wt 74.8 kg (165 lb) SpO2 96% BMI 27.46 kg/m? GENERAL: NAD, alert and oriented SKIN: unremarkable, no rash or skin lesions. HEAD: normocephalic EYES: PERRLA, EOMI, conjunctiva clear LUNGS: Clear to auscultation bilaterally, no wheezes/rhonchi/rales. HEART: Regular rate and rhythm, no murmurs. No ectopy. EXTREMITIES: Normal, No deformities, No skin discoloration, No edema. NEURO: Awake, alert and oriented x3, cranial nerves II-XII grossly intact, normal gait, no involuntary motions Labs: - Lipid Panel: - Total Cholesterol: 195 mg/dL - HDL: 37 mg/dL - LDL: 120 mg/dL - Cholesterol Ratio: 5.27 Assessment and Plan 1. Essential hypertension (I10) Systolic blood pressure readings are elevated at 157 mmHg initially, with subsequent readings of 153/89 mmHg and 147/83 mmHg. Patient is currently on two antihypertensive medications. - Initiated spironolactone at a low dose. - Follow-up in 6 weeks to assess response to medication adjustment. - Ordered blood work to be completed before the next appointment. 2. Coronary artery disease (more content not included)... Normal [facility] Lipid 1996 panelon 5 Cholesterol [Mass/Vol] 195 mg/dL Normal <200 [facility] Comment on above: Order Comment: Speci men Type: BLOOD SPECIMENOrdering Facility: [facility] Address: [address] [place] [address] Result Comment: <200 mg/dL, Desirable 200-239 mg/dL, Borderline high >239 mg/dL, High Performed By: #### 2 4331-1 ####[facility] [id number] [id number] [place] [address] [place] [facility] Cholesterol in HDL [Mass/Vol] 37 mg/dL Low >39 [facility] Comment on above: Order Comment: Lizeth quiñones Type: BLOOD SPECIMENOrdering Facility: [facility] Address: [address] [place] [address] Result Comment: 40-5 9 mg/dL, Acceptable >59 mg/dL, High: Negative risk factor for coronary heart disease <40 mg/dL, Low: Positive risk factor for coronary heart disease Performed By: #### 2 4331-1 ####[facility] [id number] [address] [id number] [place] [address] [place] Cholesterol in LDL [Mass/Vol] 120 mg/dL High <100 [facility] Comment on above: Order Comment: Micheali men Type: BLOOD SPECIMENOrdering Facility: [facility] Address: [address] [place] [address] Result Comment: <100 mg/dL, Optimal 100-129 mg/dL, Near optimal/above optimal 130-159 mg/dL, Borderline high 160-189 mg/dL, High >189 mg/dL, Very high Secondary prevention optimal LDL Cholesterol levels are recommended to be <70 mg/dL LDL cholesterol is calculated using the Max-NIH equation. Performed By: #### 2 4331-1 ####[facility] [id number] [address] [id number] [place] [address] Cholesterol in LDL/Cholesterol in HDL [Mass ratio] 3.24 {ratio} High <2.54 [facility] Comment on above: Order Comment: Speci men Type: BLOOD SPECIMENOrdering Facility: [facility] Address: [address] [place] [address] Result Comment: Refe rence: 1. National Cholesterol Education Program ATP III Guideline At-A-Glance Quick Desk Reference: National Heart, Lung, and Blood [place]. National Institutes of Health. 2001: NIH Publication No. 01-3305. 2. An International Atherosclerosis Society position paper: global recommendations for the management of dyslipidemia: executive summary, Atherosclerosis. 2014: 232(2):410-413. Performed By: #### 2 4331-1 ####[facility] [id number] [address] [id number] [address] STATES [facility] Cholesterol in VLDL [Mass/Vol] 38 mg/dL High <30 [facility] Comment on above: Order Comment: Speci men Type: BLOOD SPECIMENOrdering Facility: [facility] Address: [address] [place] [address] Performed By: #### 2 4331-1 ####[facility] [id number] [address] [id number] [place] [address] [place] Cholesterol non HDL [Mass/Vol] 158 mg/dL High <130 [facility] Comment on above: Order Comment: Speci men Type: BLOOD SPECIMENOrdering Facility: [facility] Address: [address] [place] [id number] Result Comment: <130 mg/dL, Optimal 130-159 mg/dL, Near optimal/above optimal 160-189 mg/dL, Borderline high 190-219 mg/dL, High >219 mg/dL, Very high Secondary prevention optimal non HDL Cholesterol levels are recommended to be <100 mg/dL Performed By: #### 2 4331-1 ####[facility] [id number] [place] [id number] [facility] [id number] [place] [address] [place] Cholesterol.total /Cholesterol in HDL [Mass ratio] 5.27 {ratio} High <5.10 [facility] Comment on above: Order Comment: Speci men Type: BLOOD SPECIMENOrdering Facility: [facility] Address: [address] [place] [address] Performed By: #### 2 4331-1 ####[facility] LABCLIA [id number] [place] [id number] [facility] [id number] [place] [address] [place] FASTING TIME 12 hrs Normal [facility] Comment on above: Order Comment: Speci men Type: BLOOD SPECIMENOrdering Facility: [facility] Address: [address] [place] [address] Performed By: #### 2 4331-1 ####[facility] LABCLIA [id number] [address] [address] [facility] [id number] [place] [address] [place] Triglyceride [Mass/Vol] 218 mg/dL High <150 [facility] Comment on above: Order Comment: Speci men Type: BLOOD SPECIMENOrdering Facility: [facility] Address: [address] [place] [address] Result Comment: <150 mg/dL, Normal 150-199 mg/dL, Borderline high 200-499 mg/dL, High >499 mg/dL, Very high Performed By: #### 2 4331-1 ####[facility] LABCLIA [id number] [place] [address] [place] [facility] MILLWTXLIA [id number] [place] [address] [place] CBC W Auto Differential pane l (Bld)on 01-11-2025 Basophils (Bld) [#/Vol] 0.06 10*3/uL Normal <0.11 [facility] Comment on above: Order Comment: Speci men Type: BLOOD SPECIMENOrdering Facility: [facility] Address: [address] [place] [address] Performed By: #### 5 7021-8 ####[facility]CL[facility] [id number] [address] [place] Basophils/100 WBC (Bld) 0.6 % Normal [facility] Comment on above: Order Comment: Speci men Type: BLOOD SPECIMENOrdering Facility: [facility] Address: [address] [place] [address] Performed By: #### 5 7021-8 ####[facility]ITALWNCLIA [id number] [address] STATES [facility] Differential cell count method Nom (Bld) Auto Normal [facility] Comment on above: Order Comment: Speci men Type: BLOOD SPECIMENOrdering Facility: [facility] Address: [address] [place] [address] Performed By: #### 5 7021-8 ####[facility]INGNCL[facility] [id number] [place] [address] [place] Eosinophils (Bld) [#/Vol] 0.17 10*3/uL Normal <0.46 [facility] Comment on above: Order Comment: Speci men Type: BLOOD SPECIMENOrdering Facility: [facility] Address: [address] [place] [address] Performed By: #### 5 7021-8 ####[facility]ITAL[facility] [id number] [place] [address] [place] Eosinophils/100 WBC (Bld) 1.8 % Normal [facility] Comment on above: Order Comment: Speci men Type: BLOOD SPECIMENOrdering Facility: [facility] Address: [address] [place] [address] Performed By: #### 5 7021-8 ####[facility] SEBRINGNCKASSIDY [id number] [place] [address] [place] Erythrocyte distribution width (RBC) [Ratio] 14.6 % Normal 11.5-15.0 [facility] Comment on above: Order Comment: Speci men Type: BLOOD SPECIMENOrdering Facility: [facility] Address: [address] [place] [address] Performed By: #### 5 7021-8 ####[facility] SEBRINGNCLIBhumika [id number] [place] [address] [place] Hematocrit (Bld) [Volume fraction] 50.2 % Normal 39.0-51.0 [facility] Comment on above: Order Comment: Speci men Type: BLOOD SPECIMENOrdering Facility: [facility] Address: [address] [place] [address] Performed By: #### 5 7021-8 ####[facility]INGNCLIA [id number] [place] [address] [place] Hemoglobin (Bld) [Mass/Vol] 16.1 g/dL Normal 13.0-17.0 [facility] Comment on above: Order Comment: Speci men Type: BLOOD SPECIMENOrdering Facility: [facility] Address: [address] [place] [address] Performed By: #### 5 7021-8 ####[facility] [id number] [place] [address] [place] Immature granulocytes (Bld) [#/Vol] 0.06 10*3/uL Normal <0.10 [facility] Comment on above: Order Comment: Speci men Type: BLOOD SPECIMENOrdering Facility: [facility] Address: [address] [place] [address] Performed By: #### 5 7021-8 ####[facility] [id number] [place] [address] [place] Immature granulocytes/100 WBC (Bld) 0.6 % Normal [facility] Comment on above: Order Comment: Speci men Type: BLOOD SPECIMENOrdering Facility: [facility] Address: [address] [place] [address] Performed By: #### 5 7021-8 ####[facility] [id number] [place] [address] [place] Lymphocytes (Bld) [#/Vol] 0.78 10*3/uL Low 1.00-4.00 [facility] Comment on above: Order Comment: Speci men Type: BLOOD SPECIMENOrdering Facility: [facility] Address: [address] [place] [address] Performed By: #### 5 7021-8 ####[facility] [id number] [place] [address] [place] Lymphocytes/100 WBC (Bld) 8.2 % Normal [facility] Comment on above: Order Comment: Speci men Type: BLOOD SPECIMENOrdering Facility: [facility] Address: [address] [place], [place] [address] Performed By: #### 5 7021-8 ####[facility] MILLOTFWNCLIA [id number] [place] [address] [place] [facility] MCH (RBC) [Entitic mass] 29.1 pg Normal 26.0-34.0 [facility] Comment on above: Order Comment: Speci men Type: BLOOD SPECIMENOrdering Facility: [facility] Address: [address] [place] [address] Performed By: #### 5 7021-8 ####[facility]INGNCL[facility] [id number] [place] [address] [place] MCHC (RBC) [Mass/Vol] 32.1 g/dL Normal 30.5-36.0 [facility] Comment on above: Order Comment: Speci men Type: BLOOD SPECIMENOrdering Facility: [facility] Address: [address] [place] [address] Performed By: #### 5 7021-8 ####[facility]INGNCL[facility] [id number] [place] [address] [place] MCV (RBC) [Entitic vol] 90.8 fL Normal 80.0-100.0 [facility] Comment on above: Order Comment: Speci men Type: BLOOD SPECIMENOrdering Facility: [facility] Address: [address] [place] [address] Performed By: #### 5 7021-8 ####[facility]INGNCL[facility] [id number] [place] [address] [place] Monocytes (Bld) [#/Vol] 0.67 10*3/uL Normal <0.87 [facility] Comment on above: Order Comment: Speci men Type: BLOOD SPECIMENOrdering Facility: [facility] Address: [address] [place] [address] Performed By: #### 5 7021-8 ####[facility]ITALA [id number] [place] [address] [place] Monocytes/100 WBC (Bld) 7.0 % Normal [facility] Comment on above: Order Comment: Speci men Type: BLOOD SPECIMENOrdering Facility: [facility] Address: [address] [place] [address] Performed By: #### 5 7021-8 ####[facility] [id number] [place] [address] [place] Neutrophils (Bld) [#/Vol] 7.79 10*3/uL High 1.45-7.50 [facility] Comment on above: Order Comment: Speci men Type: BLOOD SPECIMENOrdering Facility: [facility] Address: [address] [place] [address] Performed By: #### 5 7021-8 ####[facility] [id number] [place] [address] [place] Neutrophils/100 WBC (Bld) 81.8 % Normal [facility] Comment on above: Order Comment: Speci men Type: BLOOD SPECIMENOrdering Facility: [facility] Address: [address] [place] [address] Performed By: #### 5 7021-8 ####[facility] [id number] [place] [address] [place] Nucleated RBC (Bld) [#/Vol] 10*3/uL Normal <0.01 [facility] Comment on above: Order Comment: Speci men Type: BLOOD SPECIMENOrdering Facility: [facility] Address: [address] [place] [address] Performed By: #### 5 7021-8 ####[facility] [id number] [place] [address] [place] Nucleated RBC/100 WBC (Bld) [Ratio] 0.0 /100 WBC Normal [facility] Comment on above: Order Comment: Speci men Type: BLOOD SPECIMENOrdering Facility: [facility] Address: [address] [place] [address] Performed By: #### 5 7021-8 ####[facility] NORMA EMEKANCKASSIDY [id number] [place] [address] [place] Platelet mean volume (Bld) [Entitic vol] 10.7 fL Normal 9.0-12.7 [facility] Comment on above: Order Comment: Speci men Type: BLOOD SPECIMENOrdering Facility: [facility] Address: [address] [place] [address] Performed By: #### 5 7021-8 ####[facility]BRINGNCYURY [id number] [place] [address] [place] Platelets (Bld) [#/Vol] 450 10*3/uL High 150-400 [facility] Comment on above: Order Comment: Speci men Type: BLOOD SPECIMENOrdering Facility: [facility] Address: [address] [place] [address] Performed By: #### 5 7021-8 ####[facility]INGNCL[facility] [id number] [place] [address] [place] RBC (Bld) [#/Vol] 5.53 10*6/uL Normal 4.20-6.00 [facility] Comment on above: Order Comment: Speci men Type: BLOOD SPECIMENOrdering Facility: [facility] Address: [address] [place] [address] Performed By: #### 5 7021-8 ####[facility]INGNCL[facility] [id number] [place] [address] [place] WBC (Bld) [#/Vol] 9.53 10*3/uL Normal 3.70-11.00 [facility] Comment on above: Order Comment: Speci men Type: BLOOD SPECIMENOrdering Facility: [facility] Address: [address] [place] [address] Performed By: #### 5 7021-8 ####[facility] NORMA PAYNE [id number] [place] [address] [place] CNOVSPon 01-11-2025 CNOVSP Visit (SP) Office (H EMAWS) ISAIAS SLAUGHTER ([id number]) 1935 M Date Time Provider Department 01/11/25 9:30 AM ABIGAIL SAAVEDRA During your visit today, we recorded the following information about you: Temperature Pulse Respiration Blood pressure 97.1 degrees 62/minute 12/minute 163/74 Weight 74.4 kg Abigail Saavedra 01/11/2025 1:22 PM Signed Isaias Slaughter 1935 01/11/2025 HISTORY OF PRESENT ILLNESS: Isaias Slaughter is a 88 year old male with history of lung cancer, bladder cancer and 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 Oncological history: Lung cancer--He underwent a right lower lobectomy along with mediastinal lymph node dissection. Surgery was performed on 02/21/14. 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 The tumor was 5 x 4.2 x 1.8 cm in size. There was no evidence of any pleural involvement. No evidence of any lymphovascular invasion identified. There was no evidence of any perineural invasion. The patient had no evidence of any mediastinal lymph node metastasis by this tumor. The right 10R was positive for metastasis the the phenotyping was different from the lung cancer. The lymph node showed a staining pattern consistent with adenocarcinoma of prostatic primary. This was positive for PSA, positive for prostate-specific membrane antigen as well as the prostatic acid phosphatase. The adenocarcinoma was diffusely positive for synaptophysin and focally positive for chromogranin highlighting a neuroendocrine differentiating pattern. Prostate cancer; history of prostate cancer ( Janis score 6- 7 ). This was organ confined and was treated with external beam radiation. The patient had a PSA level checked which was reported at 0.28. 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 Complained of severe muscle aches and pain, fatigue and weight loss after treatment started. Bladder cancer; history of multiple superficial bladder cancers. These have been removed through a TURB. Cystoscopy recently was positive for low-grade papillary carcinoma. Previous treatment: Lupron/abiraterone/prednisone. Zytiga became cost prohibitive. Current treatment: Lupron/ Xtandi 80 mg daily TURBT 01/29/2023-- -Extensive, endoscopically unresectable papillary tumor contiguously extending from right mid-ureter to UVJ, circumferential around ureter. -Approximately 10 superficial low grade appearing bladder tumors up to 1cm in size and a 2cm partially obstructing papillary tumor at the right ureteral orifice -1mm bulbar urethral lesions, possible tumor. -Severely dilated, torturous right ureter on retrograde pyelogram with severe hydro Pathology: Bladder, transurethral resection of tumor: -Noninvasive papillary urothelial carcinoma, predominantly low-grade with focal high-grade features. -Muscularis propria is not present for evaluation. Presents for ongoing oncologic management. 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 Increased aspirin 81 mg twice daily. No unusual bleeding or unexplained bruising. Taking 80 mg enzalutamide since May 2023 due to feeling poorly on 160 mg. Feels much better on 80 mg daily Lesion on forehead keeps bleeding Interval Hx: Mr. Slaughter presents today for follow up and lab review with his family. He reports feeling well overall. Denies new issues since last being seen. 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 Healing well. Following with derm. Is applying cream to other areas of SCC. Some mild redness to both cheeks Denies new issues. No SOB, CP. No cough. Denies recent illness or fevers. No new aches or pains. Denies HF, NS. No changes in bowel or bladder habits. No bleeding. No edema. 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 Continue xtandi 80 mg daily pending PSA 2. Lupron(eligard) today, every 3 months 3. See back 3 months with labs as scheduled - CBC, CMP, PSA Advised to call with any questions or concerns in the meantime. 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 Normal [facility] Comprehensive metabolic 2000 panelon 01-11-2025 Albumin [Mass/Vol] 4.7 g/dL Normal 3.9-4.9 [facility] Comment on above: Order Comment: Speci men Type: BLOOD SPECIMENOrdering Facility: [facility] Address: [address] [place] [address] Performed By: #### 2 4323-8 ####[facility] HOSPITALLIA [id number] [place] [address] [place] ALP [Catalytic activity/Vol] 98 U/L Normal 38-113 [facility] Comment on above: Order Comment: Speci men Type: BLOOD SPECIMENOrdering Facility: [facility] Address: [address] [place] [address] Performed By: #### 2 4323-8 ####[facility]ITALWNCLIA [id number] [place] [address] [place] ALT [Catalytic activity/Vol] 8 U/L Low 10-54 [facility] Comment on above: Order Comment: Speci men Type: BLOOD SPECIMENOrdering Facility: [facility] Address: [address] [place] [address] Performed By: #### 2 4323-8 ####[facility] HOSPITALL[facility] [id number] [place] [address] [place] Anion gap [Moles/Vol] 11 mmol/L Normal 8-15 [facility] Comment on above: Order Comment: Speci men Type: BLOOD SPECIMENOrdering Facility: [facility] Address: [address] [place] [address] Performed By: #### 2 4323-8 ####[facility] HOSPITALStephanieNCKASSIDY [id number] [place] [address] [place] AST [Catalytic activity/Vol] 15 U/L Normal 14-40 [facility] Comment on above: Order Comment: Speci men Type: BLOOD SPECIMENOrdering Facility: [facility] Address: [address] [place] [address] Performed By: #### 2 4323-8 ####[facility] HOSPITALStephanieNCKASSIDY [id number] [place] [address] [place] Bilirubin [Mass/Vol] 0.5 mg/dL Normal 0.2-1.3 [facility] Comment on above: Order Comment: Speci men Type: BLOOD SPECIMENOrdering Facility: [facility] Address: [address] [place] [address] Performed By: #### 2 4323-8 ####[facility]INGNCL[facility] [id number] [place] [address] [place] Calcium [Mass/Vol] 10.2 mg/dL Normal 8.5-10.2 [facility] Comment on above: Order Comment: Speci men Type: BLOOD SPECIMENOrdering Facility: [facility] Address: [address] [place] [address] Performed By: #### 2 4323-8 ####[facility]BRINGNCL[facility] [id number] [place] [address] [place] Chloride [Moles/Vol] 95 mmol/L Low 98-107 [facility] Comment on above: Order Comment: Speci men Type: BLOOD SPECIMENOrdering Facility: [facility] Address: [address] [place] [address] Performed By: #### 2 4323-8 ####[facility] MIKIEALBUQUERQUENCYURYA [id number] [place] [address] [place] CO2 [Moles/Vol] 28 mmol/L Normal 22-30 [facility] Comment on above: Order Comment: Speci men Type: BLOOD SPECIMENOrdering Facility: [facility] Address: [address] [place] [address] Performed By: #### 2 4323-8 ####[facility]NC[facility] [id number] [address] [place] Creatinine [Mass/Vol] 1.11 mg/dL Normal 0.73-1.22 [facility] Comment on above: Order Comment: Speci men Type: BLOOD SPECIMENOrdering Facility: [facility] Address: [address] [place] [address] Performed By: #### 2 4323-8 ####[facility] SEBRINGNCLIA [id number] [address] [facility] Creatinine and Glomerular filtration rate.predicted panel (S/P/Bld) 64 mL/min/1.73m??? Normal >=60 [facility] Comment on above: Order Comment: Speci men Type: BLOOD SPECIMENOrdering Facility: [facility] Address: [address] [place] [address] Result Comment: Melyssa mated Glomerular Filtration Rate (eGFR) is calculated using the 2020 CKD-EPI creatinine equation. This equation utilizes serum creatinine, sex, and age as parameters. The creatinine assay has traceable calibration to isotope dilution-mass spectrometry. Refer to KDIGO guidelines for clinical interpretation. In patients with unstable renal function, e.g. those with acute kidney injury, the eGFR may not accurately reflect actual GFR. Performed By: #### 2 4323-8 ####[facility] HOSPITALWNCLIA [id number] [place] [address] [place] Glucose [Mass/Vol] 116 mg/dL High 74-99 [facility] Comment on above: Order Comment: Speci men Type: BLOOD SPECIMENOrdering Facility: [facility] Address: [address] [place], [place] [address] Result Comment: The [place] Diabetes Association (ADA) provides guidance for cutoff values for fasting glucose and random glucose. The ADA defines fasting as no caloric intake for at least 8 hours. Fasting plasma glucose results between 100 to 125 mg/dL indicate increased risk for diabetes (prediabetes). Fasting plasma glucose results greater than or equal to 126 mg/dL meet the criteria for diagnosis of diabetes. In the absence of unequivocal hyperglycemia, results should be confirmed by repeat testing. In a patient with classic symptoms of hyperglycemia or hyperglycemic crisis, random plasma glucose results greater than or equal to 200 mg/dL meet the criteria for diagnosis of diabetes. Reference: Standards of Medical Care in Diabetes 2016, [place] [employer]. Diabetes Care. 2016.39(Suppl 1). Performed By: #### 2 4323-8 ####[facility] HOSPITALA [id number] [place] [address] [place] Potassium [Moles/Vol] 4.5 mmol/L Normal 3.7-5.1 [facility] Comment on above: Order Comment: Micheali ishmael Type: BLOOD SPECIMENOrdering Facility: [facility] Address: [address] [place], [place] [address] Performed By: #### 2 4323-8 ####[facility] HOSPITALLIA [id number] [place] [address] [place] Protein [Mass/Vol] 7.0 g/dL Normal 6.3-8.0 [facility] Comment on above: Order Comment: Micheali men Type: BLOOD SPECIMENOrdering Facility: [facility] Address: [address] [place], [place] [address] Performed By: #### 2 4323-8 ####[facility] [id number] [place] [address] [place] Sodium [Moles/Vol] 134 mmol/L Low 136-144 [facility] Comment on above: Order Comment: Speci men Type: BLOOD SPECIMENOrdering Facility: [facility] Address: [address] [place] [address] Performed By: #### 2 4323-8 ####[facility] [id number] [place] [address] [place] Urea nitrogen [Mass/Vol] 18 mg/dL Normal 9-24 [facility] Comment on above: Order Comment: Speci men Type: BLOOD SPECIMENOrdering Facility: [facility] Address: [address] [place] [address] Performed By: #### 2 4323-8 ####[facility] [id number] [place] [address] [place] PSA SerPl-mCncon 01-11-2025 Prostate specific Ag [Mass/Vol] ng/mL Normal <2.60 [facility] Comment on above: Order Comment: Speci men Type: BLOOD SPECIMEN [facility] Address: [address] [place] [address] Result Comment: Tota l PSA test methodology used is the Electrochemiluminescence Immunoassay by [employer]. Total PSA values by differing methodologies cannot be interchanged. Performed By: #### 2 857-1 #### [facility] CLIA [id number] [address] [place] [address] [place] CBC W Auto Differential pane l (Bld)on 10-19-2024 Basophils (Bld) [#/Vol] 0.04 10*3/uL Normal <0.11 [facility] Comment on above: Order Comment: Speci men Type: BLOOD SPECIMENOrdering Facility: [facility] Address: [address] [place] [address] Performed By: #### 5 7021-8 ####[facility] [id number] [place] [address] [place] Basophils/100 WBC (Bld) 0.4 % Normal [facility] Comment on above: Order Comment: Speci men Type: BLOOD SPECIMENOrdering Facility: [facility] Address: [address] [place] [address] Performed By: #### 5 7021-8 ####[facility]BRINGLO[facility] [id number] [place] [address] [place] Differential cell count method Nom (Bld) Auto Normal [facility] Comment on above: Order Comment: Speci men Type: BLOOD SPECIMENOrdering Facility: [facility] Address: [address] [place] [address] Performed By: #### 5 7021-8 ####[facility] MIKIEDREA [id number] [place] [address] [place] Eosinophils (Bld) [#/Vol] 0.16 10*3/uL Normal <0.46 [facility] Comment on above: Order Comment: Speci men Type: BLOOD SPECIMENOrdering Facility: [facility] Address: [address] [place] [address] Performed By: #### 5 7021-8 ####[facility] [id number] [place] [address] [place] Eosinophils/100 WBC (Bld) 1.8 % Normal [facility] Comment on above: Order Comment: Speci men Type: BLOOD SPECIMENOrdering Facility: [facility] Address: [address] [place] [address] Performed By: #### 5 7021-8 ####[facility] [id number] [place] [address] [place] Erythrocyte distribution width (RBC) [Ratio] 14.6 % Normal 11.5-15.0 [facility] Comment on above: Order Comment: Speci men Type: BLOOD SPECIMENOrdering Facility: [facility] Address: [address] [place] [address] Performed By: #### 5 7021-8 ####[facility] MIKIEALBUQUERQUELO [id number] [place] [address] [place] Hematocrit (Bld) [Volume fraction] 49.7 % Normal 39.0-51.0 [facility] Comment on above: Order Comment: Speci men Type: BLOOD SPECIMENOrdering Facility: [facility] Address: [address] [place] [address] Performed By: #### 5 7021-8 ####[facility] [id number] [place] [address] [place] Hemoglobin (Bld) [Mass/Vol] 15.6 g/dL Normal 13.0-17.0 [facility] Comment on above: Order Comment: Speci men Type: BLOOD SPECIMENOrdering Facility: [facility] Address: [address] [place] [address] Performed By: #### 5 7021-8 ####[facility] [id number] [place] [address] [place] Immature granulocytes (Bld) [#/Vol] 0.07 10*3/uL Normal <0.10 [facility] Comment on above: Order Comment: Speci men Type: BLOOD SPECIMENOrdering Facility: [facility] Address: [address] [place] [address] Performed By: #### 5 7021-8 ####[facility] [id number] [place] [address] [place] Immature granulocytes/100 WBC (Bld) 0.8 % Normal [facility] Comment on above: Order Comment: Speci men Type: BLOOD SPECIMENOrdering Facility: [facility] Address: [address] [place] [address] Performed By: #### 5 7021-8 ####[facility]ITALWNCLIA [id number] [place] [address] [place] Lymphocytes (Bld) [#/Vol] 0.73 10*3/uL Low 1.00-4.00 [facility] Comment on above: Order Comment: Speci men Type: BLOOD SPECIMENOrdering Facility: [facility] Address: [address] [place] [address] Performed By: #### 5 7021-8 ####[facility] [id number] [place] [address] [place] Lymphocytes/100 WBC (Bld) 8.0 % Normal [facility] Comment on above: Order Comment: Speci men Type: BLOOD SPECIMENOrdering Facility: [facility] Address: [address] [place] [address] Performed By: #### 5 7021-8 ####[facility] [id number] [place] [address] [place] MCH (RBC) [Entitic mass] 29.0 pg Normal 26.0-34.0 [facility] Comment on above: Order Comment: Speci men Type: BLOOD SPECIMENOrdering Facility: [facility] Address: [address] [place] [address] Performed By: #### 5 7021-8 ####[facility] [id number] [place] [address] [place] MCHC (RBC) [Mass/Vol] 31.4 g/dL Normal 30.5-36.0 [facility] Comment on above: Order Comment: Speci men Type: BLOOD SPECIMENOrdering Facility: [facility] Address: [address] [place] [address] Performed By: #### 5 7021-8 ####[facility] [id number] [place] [address] [place] MCV (RBC) [Entitic vol] 92.4 fL Normal 80.0-100.0 [facility] Comment on above: Order Comment: Speci men Type: BLOOD SPECIMENOrdering Facility: [facility] Address: [address] [place] [address] Performed By: #### 5 7021-8 ####[facility] [id number] [place] [address] [place] Monocytes (Bld) [#/Vol] 0.61 10*3/uL Normal <0.87 [facility] Comment on above: Order Comment: Speci men Type: BLOOD SPECIMENOrdering Facility: [facility] Address: [address] [place] [address] Performed By: #### 5 7021-8 ####[facility] [id number] [place] [address] [place] Monocytes/100 WBC (Bld) 6.7 % Normal [facility] Comment on above: Order Comment: Speci men Type: BLOOD SPECIMENOrdering Facility: [facility] Address: [address] [place] [address] Performed By: #### 5 7021-8 ####[facility] [id number] [place] [address] [place] Neutrophils (Bld) [#/Vol] 7.49 10*3/uL Normal 1.45-7.50 [facility] Comment on above: Order Comment: Speci men Type: BLOOD SPECIMENOrdering Facility: [facility] Address: [address] [place] [address] Performed By: #### 5 7021-8 ####[facility] [id number] [place] [address] [place] Neutrophils/100 WBC (Bld) 82.3 % Normal [facility] Comment on above: Order Comment: Speci men Type: BLOOD SPECIMENOrdering Facility: [facility] Address: [address] [place] [address] Performed By: #### 5 7021-8 ####[facility] [id number] [place] [address] [place] Nucleated RBC (Bld) [#/Vol] 10*3/uL Normal <0.01 [facility] Comment on above: Order Comment: Speci men Type: BLOOD SPECIMENOrdering Facility: [facility] Address: [address] [place] [address] Performed By: #### 5 7021-8 ####[facility] [id number] [place] [address] [place] Nucleated RBC/100 WBC (Bld) [Ratio] 0.0 /100 WBC Normal [facility] Comment on above: Order Comment: Speci men Type: BLOOD SPECIMENOrdering Facility: [facility] Address: [address] [place] [address] Performed By: #### 5 7021-8 ####[facility] [id number] [place] [address] [place] Platelet mean volume (Bld) [Entitic vol] 11.9 fL Normal 9.0-12.7 [facility] Comment on above: Order Comment: Speci men Type: BLOOD SPECIMENOrdering Facility: [facility] Address: [address] [place] [address] Performed By: #### 5 7021-8 ####[facility] [id number] [place] [address] [place] Platelets (Bld) [#/Vol] 462 10*3/uL High 150-400 [facility] Comment on above: Order Comment: Speci men Type: BLOOD SPECIMENOrdering Facility: [facility] Address: [address] [place] [address] Result Comment: No c lot detected. Performed By: #### 5 7021-8 ####[facility] MIKIETOWNCLIA [id number] [place] [address] [place] RBC (Bld) [#/Vol] 5.38 10*6/uL Normal 4.20-6.00 [facility] Comment on above: Order Comment: Speci men Type: BLOOD SPECIMENOrdering Facility: [facility] Address: [address] [place] [address] Performed By: #### 5 7021-8 ####[facility]ITALWNCLIA [id number] [place] [address] [place] WBC (Bld) [#/Vol] 9.10 10*3/uL Normal 3.70-11.00 [facility] Comment on above: Order Comment: Speci men Type: BLOOD SPECIMENOrdering Facility: [facility] Address: [address] [place] [address] Performed By: #### 5 7021-8 ####[facility]ITALWNCLIA [id number] [address] [place] CNOVSPon 10-19-2024 CNOVSP Visit (SP) Office (H EMAWS) ISAIAS SLAUGHTER ([id number]) 1935 M Date Time Provider Department 10/19/24 10:00 AM ABIGAIL SAAVEDRA During your visit today, we recorded the following information about you: Temperature Pulse Respiration Blood pressure 98.6 degrees 69/minute 12/minute 144/83 Weight 75.3 kg Abigail Saavedra 10/19/2024 12:15 PM Signed Isaias Slaughter 1935 10/19/2024 HISTORY OF PRESENT ILLNESS: Isaias Slaughter is a 88 year old male with history of lung cancer, bladder cancer and 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 Oncological history: Lung cancer--He underwent a right lower lobectomy along with mediastinal lymph node dissection. Surgery was performed on 02/21/14. 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 The tumor was 5 x 4.2 x 1.8 cm in size. There was no evidence of any pleural involvement. No evidence of any lymphovascular invasion identified. There was no evidence of any perineural invasion. The patient had no evidence of any mediastinal lymph node metastasis by this tumor. The right 10R was positive for metastasis the the phenotyping was different from the lung cancer. The lymph node showed a staining pattern consistent with adenocarcinoma of prostatic primary. This was positive for PSA, positive for prostate-specific membrane antigen as well as the prostatic acid phosphatase. The adenocarcinoma was diffusely positive for synaptophysin and focally positive for chromogranin highlighting a neuroendocrine differentiating pattern. Prostate cancer; history of prostate cancer ( Lillian score 6- 7 ). This was organ confined and was treated with external beam radiation. The patient had a PSA level checked which was reported at 0.28. 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 Complained of severe muscle aches and pain, fatigue and weight loss after treatment started. Bladder cancer; history of multiple superficial bladder cancers. These have been removed through a TURB. Cystoscopy recently was positive for low-grade papillary carcinoma. Previous treatment: Lupron/abiraterone/prednisone. Zytiga became cost prohibitive. Current treatment: Lupron/ Xtandi 80 mg daily TURBT 01/29/2023-- -Extensive, endoscopically unresectable papillary tumor contiguously extending from right mid-ureter to UVJ, circumferential around ureter. -Approximately 10 superficial low grade appearing bladder tumors up to 1cm in size and a 2cm partially obstructing papillary tumor at the right ureteral orifice -1mm bulbar urethral lesions, possible tumor. -Severely dilated, torturous right ureter on retrograde pyelogram with severe hydro Pathology: Bladder, transurethral resection of tumor: -Noninvasive papillary urothelial carcinoma, predominantly low-grade with focal high-grade features. -Muscularis propria is not present for evaluation. Presents for ongoing oncologic management. 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 Increased aspirin 81 mg twice daily. No unusual bleeding or unexplained bruising. Taking 80 mg enzalutamide since May 2023 due to feeling poorly on 160 mg. Feels much better on 80 mg daily Lesion on forehead keeps bleeding Interval Hx: Mr. Slaughter presents today for follow up and lab review with his son Xray today pending. Reports feeling well overall. 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 Healing well. Following with derm. Is applying cream to other areas of SCC. Denies new issues. No SOB, CP. No cough. Denies recent illness or fevers. No new aches or pains. Denies HF, NS. No changes in bowel or bladder habits. No bleeding. 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 Continue xtandi 80 mg daily pending PSA 2. Lupron(eligard) today, every 3 months 3. 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 Normal [facility] Comprehensive metabolic 2000 panelon 10-19-2024 Albumin [Mass/Vol] 4.5 g/dL Normal 3.9-4.9 [facility] Comment on above: Order Comment: Speci men Type: BLOOD SPECIMENOrdering Facility: [facility] Address: [address] [place], [place] [address] Performed By: #### 2 4323-8 ####[facility] HOSPITALKASSIDY [id number] [place] [address] [place] ALP [Catalytic activity/Vol] 99 U/L Normal 38-113 [facility] Comment on above: Order Comment: Speci men Type: BLOOD SPECIMENOrdering Facility: [facility] Address: [address] [place] [address] Performed By: #### 2 4323-8 ####[facility] MILLWNCLIA [id number] [place] [address] [place] ALT [Catalytic activity/Vol] 9 U/L Low 10-54 [facility] Comment on above: Order Comment: Speci men Type: BLOOD SPECIMENOrdering Facility: [facility] Address: [address] [place] [address] Performed By: #### 2 4323-8 ####[facility] [id number] [place] [address] [place] Anion gap [Moles/Vol] 8 mmol/L Normal 8-15 [facility] Comment on above: Order Comment: Speci men Type: BLOOD SPECIMENOrdering Facility: [facility] Address: [address] [place] [address] Performed By: #### 2 4323-8 ####[facility] [id number] [place] [address] [place] AST [Catalytic activity/Vol] 17 U/L Normal 14-40 [facility] Comment on above: Order Comment: Speci men Type: BLOOD SPECIMENOrdering Facility: [facility] Address: [address] [place] [address] Performed By: #### 2 4323-8 ####[facility] [id number] [place] [address] [place] Bilirubin [Mass/Vol] 0.5 mg/dL Normal 0.2-1.3 [facility] Comment on above: Order Comment: Speci men Type: BLOOD SPECIMENOrdering Facility: [facility] Address: [address] [place] [address] Performed By: #### 2 4323-8 ####[facility] MILLTOWNCLIA [id number] [place] [address] [place] Calcium [Mass/Vol] 9.9 mg/dL Normal 8.5-10.2 [facility] Comment on above: Order Comment: Speci men Type: BLOOD SPECIMENOrdering Facility: [facility] Address: [address] [place] [address] Performed By: #### 2 4323-8 ####[facility] MILLWNCLIA [id number] [place] [address] [place] Chloride [Moles/Vol] 101 mmol/L Normal 98-107 [facility] Comment on above: Order Comment: Speci men Type: BLOOD SPECIMENOrdering Facility: [facility] Address: [address] [place] [address] Performed By: #### 2 4323-8 ####[facility]ITALWNCLIA [id number] [place] [address] [place] CO2 [Moles/Vol] 27 mmol/L Normal 22-30 [facility] Comment on above: Order Comment: Speci men Type: BLOOD SPECIMENOrdering Facility: [facility] Address: [address] [place] [address] Performed By: #### 2 4323-8 ####[facility] MILLTOWNCLIA [id number] [place] [address] [place] Creatinine [Mass/Vol] 1.16 mg/dL Normal 0.73-1.22 [facility] Comment on above: Order Comment: Speci men Type: BLOOD SPECIMENOrdering Facility: [facility] Address: [address] [place] [address] Performed By: #### 2 4323-8 ####[facility] MILLTOWNCLIA [id number] [place] [address] [place] Creatinine and Glomerular filtration rate.predicted panel (S/P/Bld) 61 mL/min/1.73m??? Normal >=60 [facility] Comment on above: Order Comment: Lizeth quiñones Type: BLOOD SPECIMENOrdering Facility: [facility] Address: [address] [place] [address] Result Comment: Melyssa mated Glomerular Filtration Rate (eGFR) is calculated using the 2020 CKD-EPI creatinine equation. This equation utilizes serum creatinine, sex, and age as parameters. The creatinine assay has traceable calibration to isotope dilution-mass spectrometry. Refer to KDIGO guidelines for clinical interpretation. In patients with unstable renal function, e.g. those with acute kidney injury, the eGFR may not accurately reflect actual GFR. Performed By: #### 2 4323-8 ####[facility] [id number] [place] [address] [place] Glucose [Mass/Vol] 113 mg/dL High 74-99 [facility] Comment on above: Order Comment: Lizeth quiñones Type: BLOOD SPECIMENOrdering Facility: [facility] Address: [address] [place] [address] Result Comment: The [place] Diabetes Association (ADA) provides guidance for cutoff values for fasting glucose and random glucose. The ADA defines fasting as no caloric intake for at least 8 hours. Fasting plasma glucose results between 100 to 125 mg/dL indicate increased risk for diabetes (prediabetes). Fasting plasma glucose results greater than or equal to 126 mg/dL meet the criteria for diagnosis of diabetes. In the absence of unequivocal hyperglycemia, results should be confirmed by repeat testing. In a patient with classic symptoms of hyperglycemia or hyperglycemic crisis, random plasma glucose results greater than or equal to 200 mg/dL meet the criteria for diagnosis of diabetes. Reference: Standards of Medical Care in Diabetes 2016, [place] [employer]. Diabetes Care. 2016.39(Suppl 1). Performed By: #### 2 4323-8 ####[facility] [id number] [place] [address] [place] Potassium [Moles/Vol] 4.8 mmol/L Normal 3.7-5.1 [facility] Comment on above: Order Comment: Speci men Type: BLOOD SPECIMENOrdering Facility: [facility] Address: [address] [place] [address] Performed By: #### 2 4323-8 ####[facility]ITALWNCLIA [id number] [place] [address] [place] Protein [Mass/Vol] 6.8 g/dL Normal 6.3-8.0 [facility] Comment on above: Order Comment: Speci men Type: BLOOD SPECIMENOrdering Facility: [facility] Address: [address] [place] [address] Performed By: #### 2 4323-8 ####[facility] [id number] [place] [address] [place] Sodium [Moles/Vol] 136 mmol/L Normal 136-144 [facility] Comment on above: Order Comment: Speci men Type: BLOOD SPECIMENOrdering Facility: [facility] Address: [address] [place] [address] Performed By: #### 2 4323-8 ####[facility] [id number] [place] [address] [place] Urea nitrogen [Mass/Vol] 19 mg/dL Normal 9-24 [facility] Comment on above: Order Comment: Speci men Type: BLOOD SPECIMENOrdering Facility: [facility] Address: [address] [place] [address] Performed By: #### 2 4323-8 ####[facility] [id number] [place] [address] [place] [facility] Prostate specific Ag [Mass/Vol] ng/mL Normal <2.60 [facility] Comment on above: Order Comment: Speci men Type: BLOOD SPECIMENOrdering Facility: [facility] Address: [address] [place] [address] Result Comment: Tota l PSA test methodology used is the Electrochemiluminescence Immunoassay by [employer]. Total PSA values by differing methodologies cannot be interchanged. Performed By: #### 2 857-1 ####[facility] LABCLIA [id number] [facility] HOSPITALJOSE ARMANDO [id number] [place], [place] [id number] [place] XR CHEST 2V FRONTAL/LATon XR CHEST 2V FRONTAL/LAT * * *Final Report* * * DATE OF EXAM: Oct 19 2024 9:54AM [id number] - XR CHEST 2V FRONTAL/LAT / PROCEDURE REASON: multiple diagnoses * * * * Physician Interpretation * * * * EXAMINATION: CHEST RADIOGRAPH (2 VIEW FRONTAL and LATERAL) CLINICAL HISTORY: Encounter for follow-up surveillance of lung cancer Encounter for follow-up surveillance of lung cancer MQ: XC2_6 EXAM DATE/TIME: 10/19/2024 9:54 AM COMPARISON: 11/18/2023 RESULT: Lines, tubes, and devices: None. Lungs and pleura: Small bilateral pleural fluid collections and basal atelectasis. Stable elevation of the right hemidiaphragm. Postoperative change in the right lung. Cardiomediastinal silhouette: Normal cardiomediastinal silhouette. Bones and soft tissues: Unremarkable. IMPRESSION: Stable appearance of the chest. No developing abnormality [employer]: KALYN Transcribe Date/Time: Oct 19 2024 11:00A Dictated by : RAFAEL CHRISTIANSON MD This examination was interpreted and the report reviewed and electronically signed by: RAFAEL CHRISTIANSON MD on Oct 19 2024 11:02AM EST [id number] Normal [facility] XR Chest PA and Lateralon IMPRESSION: Stable appearance of the chest. No developing abnormality [employer]ist [employer]: PSCB Transcribe Date/Time: Oct 19 2024 11:00A Dictated by : RAFAEL CHRISTIANSON MD This examination was interpreted and the report reviewed and electronically signed by: RAFAEL CHRISTIANSON MD on Oct 19 2024 11:02AM EST DIVISION OF RADIOLOGY * * *Final Report* * * DATE OF EXAM: Oct 19 2024 9:54AM [id number] - XR CHEST 2V FRONTAL/LAT / PROCEDURE REASON: multiple diagnoses * * * * Physician Interpretation * * * * EXAMINATION: CHEST RADIOGRAPH (2 VIEW FRONTAL & LATERAL) CLINICAL HISTORY: Encounter for follow-up surveillance of lung cancer Encounter for follow-up surveillance of lung cancer MQ: XC2_6 EXAM DATE/TIME: 10/19/2024 9:54 AM COMPARISON: 11/18/2023 RESULT: Lines, tubes, and devices: None. Lungs and pleura: Small bilateral pleural fluid collections and basal atelectasis. Stable elevation of the right hemidiaphragm. Postoperative change in the right lung. Cardiomediastinal silhouette: Normal cardiomediastinal silhouette. Bones and soft tissues: Unremarkable. DIVISION OF RADIOLOGY Provider, Panchito Ferrer [facility] - 10/19/2024 * * *Final Report* * * DATE OF EXAM: Oct 19 2024 9:54AM [id number] - XR CHEST 2V FRONTAL/LAT / PROCEDURE REASON: multiple diagnoses * * * * Physician Interpretation * * * * EXAMINATION: CHEST RADIOGRAPH (2 VIEW FRONTAL & LATERAL) CLINICAL HISTORY: Encounter for follow-up surveillance of lung cancer Encounter for follow-up surveillance of lung cancer MQ: XC2_6 EXAM DATE/TIME: 10/19/2024 9:54 AM COMPARISON: 11/18/2023 RESULT: Lines, tubes, and devices: None. Lungs and pleura: Small bilateral pleural fluid collections and basal atelectasis. Stable elevation of the right hemidiaphragm. Postoperative change in the right lung. Cardiomediastinal silhouette: Normal cardiomediastinal silhouette. Bones and soft tissues: Unremarkable. IMPRESSION IMPRESSION: Stable appearance of the chest. No developing abnormality Scientist [employer]: PSC[employer] Transcribe Date/Time: Oct 19 2024 11:00A Dictated by : RAFAEL CHRISTIANSON MD This examination was interpreted and the report reviewed and electronically signed by: RAFAEL CHRISTIANSON MD on Oct 19 2024 11:02AM EST [facility] Radiology Study observation (narrative) [facility] XR Chest PA and LateralOrder ed By: Ccf Provider on 10-19-2024 [facility] CNOVon 10-17-2024 CNOV Office Visit (FAMPWS ) ISAIAS SLAUGHTER ([id number]) 1935 M Date Time Provider Department 10/17/24 11:00 AM STANLEY MCKEON During your visit today, we recorded the following information about you: Pulse Blood pressure Weight Height 72/minute 138/74 75.8 kg 1.65 m Karli Snow LPN 10/17/2024 12:33 PM Signed VISUAL ACUITY: Today's exam: Vision Correction? Glasses: RIGHT EYE: 20/50 LEFT EYE: 20/ 50 BOTH EYES: 20/50 Stanley Mckeon PA-C 10/17/2024 12:42 PM Addendum Isaias Slaughter is a 89 year old male here for a Medicare wellness visit. Medicare Health Risk Assessment General Health Overall well Exercise: Minutes/Day Squats, light free weights, marching in place and toe lifts Exercise: Days/Week 7 days a week Alcohol: Daily Use none Alcohol: Drinks/Day none Alcohol: 6 or more drinks none Feel off balance Occasionally feels a little unsteady. No recent falls. Carpet in the home, no rugs. Concerns: Teeth/Dentures none Concerns: Sexual function none Troubled by feelings Had been on prozac 20 mg, not takig consistently. Frequency: Eating healthy diet yes ADLs requiring help none Safety precautions in home/vehicle Driving, doesn't always wear seatbelt Smoke, vape, chews tobacco None Difficulty hearing [facility] Needs to change the batteries Difficulty seeing Has not been seen for 2-3 years Current Providers Specialists: I have reviewed specialist-related care of the patient in the medical record. Follows with Dr. 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 Dermatology-[facility] Medical/Family history review Reviewed and updated problem list, medical/surgical/family/social history, medications, and allergies. Opioid use review Opioid Medications (last 90 days) No data to display Anxiety/Depression screening Recommendation: continuing current treatment plan Restart prozac, taking daily. Cognitive screening Mini Cog Score: 5 Cognitive screening reviewed and No further action needed (score 3-5). Functional Observation Was the patient's Timed Up AND Go test unsteady or >= 12 seconds? No Advance Care Planning Surrogate decision maker and/or advance care plan documented Measurements BP 138/74 Pulse 72 Ht 165 cm (5' 4.96) Wt 75.8 kg (167 lb 1.3 oz) SpO2 96% BMI 27.84 kg/m? Vision Screening: Hearing/vision screening results: Patient will schedule with [facility]. Assessment/Plan Medicare annual wellness visit, subsequent (Z00.00) - Counseled on healthy diet and regular exercise - Fall avoidance information provided - Personalized prevention plan provided Stanley Mckeon PA-C 10/17/2024 10/17/2024 Patient presents with: Medicare Wellness Exam Patient also notes feeling down. SUBJECTIVE: This is a 89 year old that is here today for depression symptoms. Notes feeling down most days. He lost his 3 years ago. Unable to physically do his hobbies-trap shooting and golf. He does have good family and social support. Goes to synagogue. Denies SIHI. He was previously on Prozac 20 mg, but tells me he taking that as needed. And son tells me he hasn't refilled that since the first 90 day supply this summer. Not taking regularly, if at all. He reports he did tolerate well. 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 amLODIPine (NORVASC) 5 mg tablet Take 1 tablet by mouth once daily. folic acid 1 mg tablet Take 1 tablet by mouth once daily. potassium chloride ER (KLOR-CON) 20 mEq tablet Take 1 tablet by mouth once daily. FLUoxetine (PROZAC) 20 mg capsule Take 1 capsule by mouth once daily. Calcium Citrate 250 mg calcium tab Take 1 tablet by mouth once daily. Cholecalciferol, Vitamin D3, (VITAMIN D) 25 mcg (1,000 unit) cap Take 1 capsule by mouth once daily. aspirin (CHILDRENS ASPIRIN) 81 mg chewable tablet Take 1 tablet by mouth once daily. Vfsoaknfawecx-Ucilyvun-Vuuxow (CENTRUM SILVER) tab Take 1 tablet by mouth once daily. FLUoxetine (more content not included)... Normal [facility] Cardiology Visit Reporton Cardiology Visit Report [facility] [address] [place] [address] OFFICE VISIT Date of Service: 09/29/24 MR#: [id number] Acct: [id number] Name: ISAIAS SLAUGHTER Rep #: [id number] : 1935 Provider: MERCY tena Age/Sex: 89/M Location: [facility] [place] [place] Status: Signed HPI HPI History of Present Illness Details: This is a 89-year-old white male who presents today for outpatient cardiovascular follow-up with a history of underlying CAD status post PTCA/bare-metal stent to the [facility]-2012 at [facility], superimposed upon hyperlipidemia, and hypertension. He denies chest, arm, jaw, or neck discomfort. He denies palpitations. He denies bilateral lower extremity edema. He denies claudication. He states mild shortness of breath with activity such as going up stairs. He denies shortness of breath at rest, orthopnea, or PND. He denies chronic cough. He denies significant, sudden weight gain. He states occasional lightheadedness. He denies dizziness, near-syncope, or syncope. He denies blood in urine, blood in stool, or epistaxis. He denies fever with chills. He denies myalgia. He denies fatigue. His exercise level has remained stable, but notes balance issues. He walks with a cane. Intake Vital Signs 08/17/23 11:09 09/29/24 09:31 09/29/24 09:42 Height 5 ft 6 in 5 ft 6 in Weight: 169 lb BMI 27.2 BP 160/76 H 155/79 H Blood Pressure Location Lt brachial Rt brachial Position Sitting Sitting Respiration 16 16 Pulse 76 Pulse Source NIBP Intake Visit Reasons: 14 M FU/PREV PFM Dental Financial Coordinator Required: No Accompanied by: Son Is patient in pain?: No Allergies amoxicillin Adverse Reaction (Verified 09/29/24 09:34) GI upset lisinopril Adverse Reaction (Verified 09/29/24 09:34) COUGH Medications ???Medication ???Instructions ???Recorded ???Confirmed ???Type aspirin 81 mg chewable tablet 81 mg PO DAILY@0800 04/25/15 09/29/24 History folic acid 1 mg tablet 1 mg PO DAILY@0800 03/16/17 09/29/24 History losartan 100 mg tablet 100 mg PO DAILY 02/21/19 09/29/24 History cholecalciferol (vitamin D3) 25 2,000 unit PO DAILY 03/19/20 09/29/24 History mcg (1,000 unit) capsule amlodipine 5 mg tablet 5 mg PO DAILY 07/22/20 09/29/24 History nitroglycerin 0.4 mg sublingual 0.4 mg sublingual Q5-15M PRN chest 01/17/21 09/29/24 Rx tablet pain #25 tabs calcium citrate 200 mg PO DAILY 02/07/21 09/29/24 History jitfuxsl-yf-bowzo 300 mcg-K 60 1 tab PO DAILY 02/07/21 09/29/24 History mcg-lycop 600 mcg-lutein 300 mcg tablet (Centrum [facility]) enzalutamide 40 mg capsule (Xtandi) 80 mg PO DAILY 08/17/23 09/29/24 History fluorouracil 5 % topical cream applic topical 09/29/24 09/29/24 History fluoxetine 20 mg capsule 20 mg PO QDAY 09/29/24 09/29/24 History potassium chloride 20 mEq 20 meq PO QDAY 09/29/24 09/29/24 History tablet,extended release(part/cryst) Ejection fraction %: 70 Have you fallen in the past year?: No PFS Medical History Essential hypertension 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 Diverticulosis of colon Benign neoplasm of colon Hyperlipidemia Atherosclerotic heart disease of [place] coronary artery without angina pectoris 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 Bladder cancer Lung cancer Obesity (BMI 30.0-34.9) Anxiety Surgical History History of basal cell carcinoma History of transurethral resection of prostate (2001) History of sigmoidoscopy (03/19/17) History of left inguinal hernia repair History of tonsillectomy History of colonoscopy Status post cataract extraction and insertion of intraocular lens of right eye History of appendectomy Stented coronary artery (09/12/13) S/P pneumonectomy (02/21/14) Family History Mother Heart disease Type not listed Father CAD (coronary artery disease) Brother Hypertension Social History Smoking Status: Former smoker quit date: 09/27/1964 pack-years: 12 how long ago did patient quit smokin years ago alcohol intake: never substance use type: does not use caffeine: Yes Type: carbonated beverages and coffee Number of servings: 1 ROS Const Const: Negative for fatigue or weakness Eyes Eyes: Negative for change in vision ENT ENT: Positive for balance problems; Negative for dizziness Cardio Chest Pain: No Palpitations: No Edema: None Muscle aches with walking: None Resp Respiratory: Positive for SOB with activity (Mild with stairs, recovers quickly); Negative for SOB at rest or SOB orthopnea SOB lying down GI GI: Negative nausea or heartburn : Negative for hematuria or frequent nighttime urination/ nocturia Mu (more content not included)... Normal [facility] Anne-Marie 07-28-2024 GAYATRI Telephone (DELFINO) ISAIAS SLAUGHTER ([id number]) 1935 M Date Time Provider Department 07/28/24 ELLIOTT SYLVESTER During your visit today, we recorded the following information about you: Chilangojahaira AugustinHailey 07/28/2024 3:27 PM Signed Patient calling for 07/27 lab results Sudha Kim RN 07/28/2024 4:24 PM Signed Call to patient, no answer, left detailed message with PSA value. PSA 07/27/24 <0.02 Instructed to call back in if any further questions about labs. Hayley Kim RN Allergies As of Date: 07/28/2024 Noted Allergy Reaction AMOXICILLIN 12/30/2016 6 - Diarrhea 8 - GI Upset Comments: Patient cannot tolerate this medication LISINOPRIL 10/08/2014 3 - Cough ZVLMEMB-DKM-SYG REDUCTASE INHIBIT*01/28/2021 14 - Other: See Comments Comments: Patient states he will not take statins because of what they did to his . Date Reviewed: 07/27/2024 Reviewed by: Gilbert Mjeia MA - Fully Assessed Reason for Visit: Results [95] Prescriptions as of 07/28/2024 - potassium chloride ER (KLOR-CON) 20 mEq tablet Take 1 tablet by mouth once daily. - FLUoxetine (PROZAC) 20 mg capsule Take 1 capsule by mouth once daily. - losartan (COZAAR) 100 mg tablet Take 1 tablet by mouth once daily. - enzalutamide (XTANDI) 40 mg tablet Take 2 tablets (80 mg) by mouth once daily. - amLODIPine (NORVASC) 5 mg tablet Take 1 tablet by mouth once daily. - folic acid 1 mg tablet Take 1 tablet by mouth once daily. - Calcium Citrate 250 mg calcium tab Take 1 tablet by mouth once daily. - Cholecalciferol, Vitamin D3, (VITAMIN D) 25 mcg (1,000 unit) cap Take 1 capsule by mouth once daily. - aspirin (CHILDRENS ASPIRIN) 81 mg chewable tablet Take 1 tablet by mouth once daily. - Uohtdkwmejfkd-Vjgulrhx-Awzqdh (CENTRUM SILVER) tab Take 1 tablet by mouth once daily. 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] 07/20/2012 Presence of bare metal stent in right coronary *10/15/2013 HLD (hyperlipidemia) [E78.5] 01/08/2014 CAD (coronary artery disease) [I25.10] 01/08/2014 Mediastinoscopy, right thoracotomy, right lower*02/01/2014 DVT prophylaxis [SQJ1484] 02/22/2014 10/04/2017 DISPOSITION AND FOLLOW-UP [V999.01] 02/22/2014 09/10/2014 Acute postoperative pain [G89.18] 02/24/2014 06/11/2016 Carcinoma of lung (HCC) [C34.90] 05/17/2014 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] 09/26/2014 Hemolytic anemia (HCC) [D58.9] 10/11/2014 10/04/2017 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] 02/13/2015 10/04/2017 History of basal cell carcinoma [Z85.828] 06/10/2015 Neoplasm of uncertain behavior of skin [D48.5] 06/10/2015 06/11/2016 AK (actinic keratosis) [L57.0] 06/10/2015 Malignant 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 *07/05/2015 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 10/04/2017 Left inguinal hernia [K40.90] 02/19/2017 Prediabetes [R73.03] 08/11/2017 Mediastinal mass [J98.59] 05/31/2018 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]04/29/2021 Hydronephrosis with ureteral stricture, not els*12/09/2022 Stage 3a chronic kidney disease (HCC) [N18.31] 02/05/2023 Unsteady gait [R26.81] 07/20/2023 Encounter Status:Closed by SUDHA KIM on 07/28/24 Normal [facility] CBC W Auto Differential pane l (Bld)on 07-27-2024 Basophils (Bld) [#/Vol] 0.03 10*3/uL Normal <0.11 [facility] Comment on above: Order Comment: Speci men Type: BLOOD SPECIMENOrdering Facility: [facility] Address: [address] [place] [address] Performed By: #### 5 7021-8 ####[facility] [id number] [place] [address] [place] Basophils/100 WBC (Bld) 0.4 % Normal [facility] Comment on above: Order Comment: Speci men Type: BLOOD SPECIMENOrdering Facility: [facility] Address: [address] [place] [address] Performed By: #### 5 7021-8 ####[facility] [id number] [place] [address] [place] Differential cell count method Nom (Bld) Auto Normal [facility] Comment on above: Order Comment: Speci men Type: BLOOD SPECIMENOrdering Facility: [facility] Address: [address] [place] [address] Performed By: #### 5 7021-8 ####[facility] [id number] [place] [address] [place] Eosinophils (Bld) [#/Vol] 0.14 10*3/uL Normal <0.46 [facility] Comment on above: Order Comment: Speci men Type: BLOOD SPECIMENOrdering Facility: [facility] Address: [address] [place] [address] Performed By: #### 5 7021-8 ####[facility] MIKIEWNCLIA [id number] [place] [address] [place] Eosinophils/100 WBC (Bld) 1.8 % Normal [facility] Comment on above: Order Comment: Speci men Type: BLOOD SPECIMENOrdering Facility: [facility] Address: [address] [place] [address] Performed By: #### 5 7021-8 ####[facility] [id number] [place] [address] [place] Erythrocyte distribution width (RBC) [Ratio] 14.1 % Normal 11.5-15.0 [facility] Comment on above: Order Comment: Speci men Type: BLOOD SPECIMENOrdering Facility: [facility] Address: [address] [place] [address] Performed By: #### 5 7021-8 ####[facility] [id number] [address] [place] Hematocrit (Bld) [Volume fraction] 46.4 % Normal 39.0-51.0 [facility] Comment on above: Order Comment: Speci men Type: BLOOD SPECIMENOrdering Facility: [facility] Address: [address] [place] [address] Performed By: #### 5 7021-8 ####[facility] [id number] [place] [address] [place] Hemoglobin (Bld) [Mass/Vol] 14.8 g/dL Normal 13.0-17.0 [facility] Comment on above: Order Comment: Speci men Type: BLOOD SPECIMENOrdering Facility: [facility] Address: [address] [place] [address] Performed By: #### 5 7021-8 ####[facility] [id number] [place] [address] [place] Immature granulocytes (Bld) [#/Vol] 0.07 10*3/uL Normal <0.10 [facility] Comment on above: Order Comment: Speci men Type: BLOOD SPECIMENOrdering Facility: [facility] Address: [address] [place] [address] Performed By: #### 5 7021-8 ####[facility] [id number] [place] [address] [place] [facility] Immature granulocytes/100 WBC (Bld) 0.9 % Normal [facility] Comment on above: Order Comment: Speci men Type: BLOOD SPECIMENOrdering Facility: [facility] Address: [address] [place] [address] Performed By: #### 5 7021-8 ####[facility] [id number] [place] [address] [place] Lymphocytes (Bld) [#/Vol] 0.78 10*3/uL Low 1.00-4.00 [facility] Comment on above: Order Comment: Speci men Type: BLOOD SPECIMENOrdering Facility: [facility] Address: [address] [place] [address] Performed By: #### 5 7021-8 ####[facility] [id number] [address] [place] Lymphocytes/100 WBC (Bld) 9.9 % Normal [facility] Comment on above: Order Comment: Speci men Type: BLOOD SPECIMENOrdering Facility: [facility] Address: [address] [place] [address] Performed By: #### 5 7021-8 ####[facility] [id number] [place] [address] [place] MCH (RBC) [Entitic mass] 29.2 pg Normal 26.0-34.0 [facility] Comment on above: Order Comment: Speci men Type: BLOOD SPECIMENOrdering Facility: [facility] Address: [address] [place] [address] Performed By: #### 5 7021-8 ####[facility] MIKIEALBUQUERQUERIGOBERTO [id number] [place] [address] [place] MCHC (RBC) [Mass/Vol] 31.9 g/dL Normal 30.5-36.0 [facility] Comment on above: Order Comment: Speci men Type: BLOOD SPECIMENOrdering Facility: [facility] Address: [address] [place] [address] Performed By: #### 5 7021-8 ####[facility] [id number] [place] [address] [place] MCV (RBC) [Entitic vol] 91.7 fL Normal 80.0-100.0 [facility] Comment on above: Order Comment: Speci men Type: BLOOD SPECIMENOrdering Facility: [facility] Address: [address] [place] [address] Performed By: #### 5 7021-8 ####[facility] [id number] [place] [address] [place] Monocytes (Bld) [#/Vol] 0.55 10*3/uL Normal <0.87 [facility] Comment on above: Order Comment: Speci men Type: BLOOD SPECIMENOrdering Facility: [facility] Address: [address] [place] [address] Performed By: #### 5 7021-8 ####[facility] [id number] [place] [address] [place] Monocytes/100 WBC (Bld) 7.0 % Normal [facility] Comment on above: Order Comment: Speci men Type: BLOOD SPECIMENOrdering Facility: [facility] Address: [address] [place] [address] Performed By: #### 5 7021-8 ####[facility] MILLWNCLIA [id number] [place] [address] [place] Neutrophils (Bld) [#/Vol] 6.34 10*3/uL Normal 1.45-7.50 [facility] Comment on above: Order Comment: Speci men Type: BLOOD SPECIMENOrdering Facility: [facility] Address: [address] [place] [address] Performed By: #### 5 7021-8 ####[facility] [id number] [place] [address] [place] Neutrophils/100 WBC (Bld) 80.0 % Normal [facility] Comment on above: Order Comment: Speci men Type: BLOOD SPECIMENOrdering Facility: [facility] Address: [address] [place] [address] Performed By: #### 5 7021-8 ####[facility] [id number] [place] [address] [place] Nucleated RBC (Bld) [#/Vol] 10*3/uL Normal <0.01 [facility] Comment on above: Order Comment: Speci men Type: BLOOD SPECIMENOrdering Facility: [facility] Address: [address] [place] [address] Performed By: #### 5 7021-8 ####[facility] [id number] [place] [address] [place] Nucleated RBC/100 WBC (Bld) [Ratio] 0.0 /100 WBC Normal [facility] Comment on above: Order Comment: Speci men Type: BLOOD SPECIMENOrdering Facility: [facility] Address: [address] [place] [address] Performed By: #### 5 7021-8 ####[facility] [id number] [place] [address] [place] Platelet mean volume (Bld) [Entitic vol] 10.6 fL Normal 9.0-12.7 [facility] Comment on above: Order Comment: Speci men Type: BLOOD SPECIMENOrdering Facility: [facility] Address: [address] [place] [address] Performed By: #### 5 7021-8 ####[facility] [id number] [place] [address] [place] Platelets (Bld) [#/Vol] 412 10*3/uL High 150-400 [facility] Comment on above: Order Comment: Speci men Type: BLOOD SPECIMENOrdering Facility: [facility] Address: [address] [place] [address] Performed By: #### 5 7021-8 ####[facility] [id number] [place] [address] [place] RBC (Bld) [#/Vol] 5.06 10*6/uL Normal 4.20-6.00 [facility] Comment on above: Order Comment: Speci men Type: BLOOD SPECIMENOrdering Facility: [facility] Address: [address] [place] [address] Performed By: #### 5 7021-8 ####[facility] [id number] [place] [address] [place] WBC (Bld) [#/Vol] 7.91 10*3/uL Normal 3.70-11.00 [facility] Comment on above: Order Comment: Speci men Type: BLOOD SPECIMENOrdering Facility: [facility] Address: [address] [place] [address] Performed By: #### 5 7021-8 ####[facility] [id number] [place] [address] [place] CNOVSPon 07-27-2024 CNOVSP Visit (SP) Office (H EMAWS) ISAIAS SLAUGHTER ([id number]) 1935 M Date Time Provider Department 07/27/24 10:00 AM ELLIOTT SYLVESTER During your visit today, we recorded the following information about you: Temperature Pulse Blood pressure Weight 97.3 degrees 71/minute 161/72 76.2 kg Elliott Sylvester MD 07/27/2024 10:23 AM Signed (Elements copied from my note dated August 26, 2023, have been reviewed and updated where appropriate, and all reflect current assessment and medical decision making from today's encounter, July 27, 2024) HISTORY OF PRESENT ILLNESS: Isaias Slaughter is a 88 year old male with history of lung cancer, bladder cancer and 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 Oncological history: Lung cancer--He underwent a right lower lobectomy along with mediastinal lymph node dissection. Surgery was performed on 02/21/14. 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 The tumor was 5 x 4.2 x 1.8 cm in size. There was no evidence of any pleural involvement. No evidence of any lymphovascular invasion identified. There was no evidence of any perineural invasion. The patient had no evidence of any mediastinal lymph node metastasis by this tumor. The right 10R was positive for metastasis the the phenotyping was different from the lung cancer. The lymph node showed a staining pattern consistent with adenocarcinoma of prostatic primary. This was positive for PSA, positive for prostate-specific membrane antigen as well as the prostatic acid phosphatase. The adenocarcinoma was diffusely positive for synaptophysin and focally positive for chromogranin highlighting a neuroendocrine differentiating pattern. Prostate cancer; history of prostate cancer ( Lillian score 6- 7 ). This was organ confined and was treated with external beam radiation. The patient had a PSA level checked which was reported at 0.28. 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 Complained of severe muscle aches and pain, fatigue and weight loss after treatment started. Bladder cancer; history of multiple superficial bladder cancers. These have been removed through a TURB. Cystoscopy recently was positive for low-grade papillary carcinoma. Previous treatment: Lupron/abiraterone/prednisone. Zytiga became cost prohibitive. Current treatment: Lupron/ Xtandi 80 mg daily TURBT 01/29/2023-- -Extensive, endoscopically unresectable papillary tumor contiguously extending from right mid-ureter to UVJ, circumferential around ureter. -Approximately 10 superficial low grade appearing bladder tumors up to 1cm in size and a 2cm partially obstructing papillary tumor at the right ureteral orifice -1mm bulbar urethral lesions, possible tumor. -Severely dilated, torturous right ureter on retrograde pyelogram with severe hydro Pathology: Bladder, transurethral resection of tumor: -Noninvasive papillary urothelial carcinoma, predominantly low-grade with focal high-grade features. -Muscularis propria is not present for evaluation. Presents for ongoing oncologic management. 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 Increased aspirin 81 mg twice daily. No unusual bleeding or unexplained bruising. Taking 80 mg enzalutamide since May 2023 due to feeling poorly on 160 mg. 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 Continue xtandi 80 mg daily pending PSA 2. Lupron(eligard) today, every 3 months 3. See back 3 months, chest x ray at that visit 4. Referral to dermatology re forehead lesion Written and verbal health teaching given to patient, patient verbalizes understanding and agrees with treatment plan. 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 Malignant 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 (HCC) Malignant neoplasm of urinary bladder (HCC) Other and unspecified hyperlipidemia Hyperlipidemia PERS HX SKIN MALIGNANCY NEC 11/08/2006 Ureteral cancer (HCC) PAST SURGICAL HISTORY Procedure Laterality Date ANES TRANSURETHRAL RESECTION OF BLADDER TUMOR 2013 ANES TRANSURETHRAL RESECTION OF (more content not included)... Normal [facility] Comprehensive metabolic 2000 panelon 07-27-2024 Albumin [Mass/Vol] 4.2 g/dL Normal 3.9-4.9 [facility] Comment on above: Order Comment: Speci men Type: BLOOD SPECIMENOrdering Facility: [facility] Address: [address] [place] [address] Performed By: #### 2 4323-8 ####[facility] [id number] [place] [address] [place] ALP [Catalytic activity/Vol] 98 U/L Normal 38-113 [facility] Comment on above: Order Comment: Speci men Type: BLOOD SPECIMENOrdering Facility: [facility] Address: [address] [place] [address] Performed By: #### 2 4323-8 ####[facility]IT[facility] [id number] [place] [address] [place] ALT [Catalytic activity/Vol] 7 U/L Low 10-54 [facility] Comment on above: Order Comment: Speci men Type: BLOOD SPECIMENOrdering Facility: [facility] Address: [address] [place] [address] Performed By: #### 2 4323-8 ####[facility]IT[facility] [id number] [place] [address] [place] Anion gap [Moles/Vol] 13 mmol/L Normal 8-15 [facility] Comment on above: Order Comment: Speci men Type: BLOOD SPECIMENOrdering Facility: [facility] Address: [address] [place] [address] Performed By: #### 2 4323-8 ####[facility]INGNCLIA [id number] [place] [address] [place] AST [Catalytic activity/Vol] 12 U/L Low 14-40 [facility] Comment on above: Order Comment: Speci men Type: BLOOD SPECIMENOrdering Facility: [facility] Address: [address] [place] [address] Performed By: #### 2 4323-8 ####[facility] SEBRINGNCA [id number] [place] [address] [place] Bilirubin [Mass/Vol] 0.4 mg/dL Normal 0.2-1.3 [facility] Comment on above: Order Comment: Speci men Type: BLOOD SPECIMENOrdering Facility: [facility] Address: [address] [place] [address] Performed By: #### 2 4323-8 ####[facility] [id number] [place] [address] [place] Calcium [Mass/Vol] 9.5 mg/dL Normal 8.5-10.2 [facility] Comment on above: Order Comment: Speci men Type: BLOOD SPECIMENOrdering Facility: [facility] Address: [address] [place] [address] Performed By: #### 2 4323-8 ####[facility] [id number] [place] [address] [place] Chloride [Moles/Vol] 98 mmol/L Normal 98-107 [facility] Comment on above: Order Comment: Speci men Type: BLOOD SPECIMENOrdering Facility: [facility] Address: [address] [place] [address] Performed By: #### 2 4323-8 ####[facility] SE[facility]INGNCLIA [id number] [place] [address] [place] CO2 [Moles/Vol] 25 mmol/L Normal 22-30 [facility] Comment on above: Order Comment: Speci men Type: BLOOD SPECIMENOrdering Facility: [facility] Address: [address] [place] [address] Performed By: #### 2 4323-8 ####[facility] SEBRINGNCLIA [id number] [place] [address] [place] Creatinine [Mass/Vol] 1.10 mg/dL Normal 0.73-1.22 [facility] Comment on above: Order Comment: Speci men Type: BLOOD SPECIMENOrdering Facility: [facility] Address: [address] [place], [place] [address] [address] Performed By: #### 2 4323-8 ####[facility]IT[facility]I [id number] [place] [address] [place] Creatinine and Glomerular filtration rate.predicted panel (S/P/Bld) 65 mL/min/1.73m??? Normal >=60 [facility] Comment on above: Order Comment: Lizeth quiñones Type: BLOOD SPECIMENOrdering Facility: [facility] Address: [address] [place] [address] Result Comment: Melyssa mated Glomerular Filtration Rate (eGFR) is calculated using the 2020 CKD-EPI creatinine equation. This equation utilizes serum creatinine, sex, and age as parameters. The creatinine assay has traceable calibration to isotope dilution-mass spectrometry. Refer to KDIGO guidelines for clinical interpretation. In patients with unstable renal function, e.g. those with acute kidney injury, the eGFR may not accurately reflect actual GFR. Performed By: #### 2 4323-8 ####[facility] [id number] [place] [address] [place] Glucose [Mass/Vol] 141 mg/dL High 74-99 [facility] Comment on above: Order Comment: Lizeth men Type: BLOOD SPECIMENOrdering Facility: [facility] Address: [address] [place] [address] Result Comment: The [place] Diabetes Association (ADA) provides guidance for cutoff values for fasting glucose and random glucose. The ADA defines fasting as no caloric intake for at least 8 hours. Fasting plasma glucose results between 100 to 125 mg/dL indicate increased risk for diabetes (prediabetes). Fasting plasma glucose results greater than or equal to 126 mg/dL meet the criteria for diagnosis of diabetes. In the absence of unequivocal hyperglycemia, results should be confirmed by repeat testing. In a patient with classic symptoms of hyperglycemia or hyperglycemic crisis, random plasma glucose results greater than or equal to 200 mg/dL meet the criteria for diagnosis of diabetes. Reference: Standards of Medical Care in Diabetes 2016, [place] [employer]. Diabetes Care. 2016.39(Suppl 1). Performed By: #### 2 4323-8 ####[facility] H[facility]ITALWHAKANLIA [id number] [place] [address] [place] Potassium [Moles/Vol] 4.3 mmol/L Normal 3.7-5.1 [facility] Comment on above: Order Comment: Micheali men Type: BLOOD SPECIMENOrdering Facility: [facility] Address: [address] [place] [address] Performed By: #### 2 4323-8 ####[facility]ITALA [id number] [place] [address] [place] Protein [Mass/Vol] 6.4 g/dL Normal 6.3-8.0 [facility] Comment on above: Order Comment: Lizeth quiñones Type: BLOOD SPECIMENOrdering Facility: [facility] Address: [address] [place] [address] Performed By: #### 2 4323-8 ####[facility] [id number] [place] [address] [place] Sodium [Moles/Vol] 136 mmol/L Normal 136-144 [facility] Comment on above: Order Comment: Micheali men Type: BLOOD SPECIMENOrdering Facility: [facility] Address: [address] [place], [place] [address] Performed By: #### 2 4323-8 ####[facility] SE[facility]INGNCL[facility] [id number] [place] [address] [place] Urea nitrogen [Mass/Vol] 14 mg/dL Normal 9-24 [facility] Comment on above: Order Comment: Speci men Type: BLOOD SPECIMENOrdering Facility: [facility] Address: [address] [place] [address] Performed By: #### 2 4323-8 ####[facility] NORMAKER[facility] HOSPITALNCLIA [id number] [place] [address] [place] PSA SerPl-mCncon 07-27-2024 Prostate specific Ag [Mass/Vol] ng/mL Normal <2.60 [facility] Comment on above: Order Comment: Speci men Type: BLOOD SPECIMENOrdering Facility: [facility] Address: [address] [place] [address] Result Comment: Tota l PSA test methodology used is the Electrochemiluminescence Immunoassay by [employer]. Total PSA values by differing methodologies cannot be interchanged. Performed By: #### 2 857-1 ####[facility] LABCLIA [id number] [facility] [place] [address] [place] CBC W Auto Differential pane l (Bld)on 08-26-2023 Basophils (Bld) [#/Vol] 0.04 10*3/uL <0.11 k/uL [facility] Basophils/100 WBC (Bld) 0.6 % [facility] Differential cell count method Nom (Bld) Auto [facility] Eosinophils (Bld) [#/Vol] 0.09 10*3/uL <0.46 k/uL [facility] Eosinophils/100 WBC (Bld) 1.4 % [facility] Erythrocyte distribution width (RBC) [Ratio] 13.3 % 11.5 - 15.0 % [facility] Hematocrit (Bld) [Volume fraction] 43.4 % 39.0 - 51.0 % [facility] Hemoglobin (Bld) [Mass/Vol] 14.0 g/dL 13.0 - 17.0 g/dL [facility] Immature granulocytes (Bld) [#/Vol] 0.06 10*3/uL <0.10 k/uL [facility] Immature granulocytes/100 WBC (Bld) 0.9 % [facility] Lymphocytes (Bld) [#/Vol] 0.77 10*3/uL Low 1.00 - 4.00 k/uL [facility] Lymphocytes/100 WBC (Bld) 11.8 % [facility] MCH (RBC) [Entitic mass] 30.1 pg 26.0 - 34.0 pg [facility] MCHC (RBC) [Mass/Vol] 32.3 g/dL 30.5 - 36.0 g/dL [facility] MCV (RBC) [Entitic vol] 93.3 fL 80.0 - 100.0 fL [facility] Monocytes (Bld) [#/Vol] 0.54 10*3/uL <0.87 k/uL [facility] Monocytes/100 WBC (Bld) 8.3 % [facility] Neutrophils (Bld) [#/Vol] 5.03 10*3/uL 1.45 - 7.50 k/uL [facility] Neutrophils/100 WBC (Bld) 77.0 % [facility] Nucleated RBC (Bld) [#/Vol] <0.01 k/uL [facility] Nucleated RBC/100 WBC (Bld) [Ratio] 0.0 /100 WBC [facility] Platelet mean volume (Bld) [Entitic vol] 11.0 fL 9.0 - 12.7 fL [facility] Platelets (Bld) [#/Vol] 412 10*3/uL High 150 - 400 k/uL [facility] RBC (Bld) [#/Vol] 4.65 10*6/uL 4.20 - 6.0 0 m/uL [facility] WBC (Bld) [#/Vol] 6.53 10*3/uL 3.70 - 11. 00 k/uL [facility] PSA/PROSTSPECAG DIAGon 08-26 Prostate specific Ag [Mass/Vol] <2.60 ng/mL [facility] CBC W Auto Differential pane l (Bld)on 06-03-2023 Basophils (Bld) [#/Vol] 0.04 10*3/uL <0.11 k/uL [facility] Basophils/100 WBC (Bld) 0.6 % [facility] Differential cell count method Nom (Bld) Auto [facility] Eosinophils (Bld) [#/Vol] 0.13 10*3/uL <0.46 k/uL [facility] Eosinophils/100 WBC (Bld) 1.9 % [facility] Erythrocyte distribution width (RBC) [Ratio] 14.6 % 11.5 - 15.0 % [facility] Hematocrit (Bld) [Volume fraction] 43.1 % 39.0 - 51.0 % [facility] Hemoglobin (Bld) [Mass/Vol] 14.0 g/dL 13.0 - 17.0 g/dL [facility] Immature granulocytes (Bld) [#/Vol] 0.04 10*3/uL <0.10 k/uL [facility] Immature granulocytes/100 WBC (Bld) 0.6 % [facility] Lymphocytes (Bld) [#/Vol] 0.89 10*3/uL Low 1.00 - 4.00 k/uL [facility] Lymphocytes/100 WBC (Bld) 13.1 % [facility] MCH (RBC) [Entitic mass] 30.1 pg 26.0 - 34.0 pg [facility] MCHC (RBC) [Mass/Vol] 32.5 g/dL 30.5 - 36.0 g/dL [facility] MCV (RBC) [Entitic vol] 92.7 fL 80.0 - 100.0 fL [facility] Monocytes (Bld) [#/Vol] 0.61 10*3/uL <0.87 k/uL [facility] Monocytes/100 WBC (Bld) 9.0 % [facility] Neutrophils (Bld) [#/Vol] 5.10 10*3/uL 1.45 - 7.50 k/uL [facility] Neutrophils/100 WBC (Bld) 74.8 % [facility] Nucleated RBC (Bld) [#/Vol] <0.01 k/uL [facility] Nucleated RBC/100 WBC (Bld) [Ratio] 0.0 /100 WBC [facility] Platelet mean volume (Bld) [Entitic vol] 10.8 fL 9.0 - 12.7 fL [facility] Platelets (Bld) [#/Vol] 465 10*3/uL High 150 - 400 k/uL [facility] RBC (Bld) [#/Vol] 4.65 10*6/uL 4.20 - 6.0 0 m/uL [facility] WBC (Bld) [#/Vol] 6.81 10*3/uL 3.70 - 11. 00 k/uL [facility] No Panel Informationon 06-03 [facility] PSA/PROSTSPECAG DIAGon 06-03 Prostate specific Ag [Mass/Vol] <2.60 ng/mL [facility] FERRITIN BLDon 03-03-2023 Ferritin [Mass/Vol] 125.0 ng/mL 30.3 - 565.7 ng/mL [facility] Iron and Iron binding capaci ty panelon 03-03-2023 Iron [Mass/Vol] 74 ug/dL 41 - 186 ug/dL [facility] Iron binding capacity [Mass/Vol] 286 ug/dL 232 - 386 ug/dL [facility] Iron/TIBC [Molar ratio] 25.9 % 15.0 - 57.0 % [facility] URINALYSIS, REFLEX MICROSCOP ICon 01-20-2023 Bilirubin Ql (U) Negative Negative [facility] Clarity (Unsp spec) Clear Clear [facility] Color (U) Yellow Yellow [facility] Glucose Test strip (U) [Mass/Vol] Negative Trace, Negative [facility] Hemoglobin Ql (U) Negative Negative, Trace [facility] Ketones Ql (U) Negative Negative, Trace [facility] Leukocyte esterase Test strip Ql (U) Negative Negative, 25 Wojciech/uL [facility] Nitrite Ql (U) Negative Negative [facility] pH (U) 7.0 [pH] 5.0 - 8.0 [facility] Protein (U) [Mass/Vol] Negative Trace, Negative [facility] Specific gravity (U) [Rel density] 1.018 1.005 - 1.030 [facility] Urobilinogen Ql (U) Negative Negative [facility] Basic metabolic 2000 panelon 12-30-2022 Anion gap [Moles/Vol] 12 mmol/L 9 - 18 mmol/L [facility] Calcium [Mass/Vol] 10.4 mg/dL High 8.5 - 10.2 mg/dL [facility] Chloride [Moles/Vol] 102 mmol/L 97 - 105 mmol/L [facility] CO2 [Moles/Vol] 24 mmol/L 22 - 30 mmol/L [facility] Creatinine [Mass/Vol] 1.17 mg/dL 0.73 - 1.22 mg/dL [facility] Estimated Glomerular Filtration Rate 61 mL/min/1.73m >=60 mL/min/1.73m [facility] Glucose [Mass/Vol] 104 mg/dL High 74 - 99 mg/dL [facility] Potassium [Moles/Vol] 4.5 mmol/L 3.7 - 5.1 mmol/L [facility] Sodium [Moles/Vol] 138 mmol/L 136 - 144 mmol/L [facility] Urea nitrogen [Mass/Vol] 18 mg/dL 9 - 24 mg/dL [facility] CBC panel Auto (Bld)on 12-30 Erythrocyte distribution width (RBC) [Ratio] 13.7 % 11.5 - 15.0 % [facility] Hematocrit (Bld) [Volume fraction] 44.4 % 39.0 - 51.0 % [facility] Hemoglobin (Bld) [Mass/Vol] 14.6 g/dL 13.0 - 17.0 g/dL [facility] MCH (RBC) [Entitic mass] 30.5 pg 26.0 - 34.0 pg [facility] MCHC (RBC) [Mass/Vol] 32.9 g/dL 30.5 - 36.0 g/dL [facility] MCV (RBC) [Entitic vol] 92.9 fL 80.0 - 100.0 fL [facility] Nucleated RBC (Bld) [#/Vol] <0.01 k/uL [facility] Platelet mean volume (Bld) [Entitic vol] 11.3 fL 9.0 - 12.7 fL [facility] Platelets (Bld) [#/Vol] 501 10*3/uL High 150 - 400 k/uL [facility] RBC (Bld) [#/Vol] 4.78 10*6/uL 4.20 - 6.0 0 m/uL [facility] WBC (Bld) [#/Vol] 9.75 10*3/uL 3.70 - 11. 00 k/uL [facility] URINALYSIS, REFLEX MICROSCOP ICon 12-30-2022 Bilirubin Ql (U) Negative Negative [facility] Clarity (Unsp spec) Clear Clear [facility] Color (U) Yellow Yellow [facility] Glucose Test strip (U) [Mass/Vol] Negative Trace, Negative [facility] Hemoglobin Ql (U) Negative Negative, Trace [facility] Ketones Ql (U) Negative Negative, Trace [facility] Leukocyte esterase Test strip Ql (U) 25 Wojciech/uL Negative, 25 Wojciech/uL [facility] Nitrite Ql (U) Negative Negative [facility] pH (U) 7.0 [pH] 5.0 - 8.0 [facility] Protein (U) [Mass/Vol] Trace Trace, Negative [facility] Specific gravity (U) [Rel density] 1.019 1.005 - 1.030 [facility] Urobilinogen Ql (U) Negative Negative [facility] US KIDNEY/BLADDERon 12-11-19 23 [facility] UA DIP, URINE (POC)on 2021 BILIRUBIN UA (POCT) Negative Negative [facility] CLARITY UA (POCT) Clear [facility] COLOR UA (POCT) Yellow [facility] GLUCOSE UA (POCT) Negative Negative mg/dL [facility] HEMOGLOBIN/BLOOD UA (POCT) Negative Negative [facility] KETONE UA (POCT) Negative Negative mg/dL [facility] LEUKOCYTES UA (POCT) Negative Negative [facility] NITRITE UA (POCT) Negative Negative [facility] PH UA (POCT) 7.0 4.5 - 8.0 [facility] Protein Ql (U) Negative Negative mg/dL [facility] SPECIFIC GRAVITY UA (POCT) 1.015 1.005 - 1.030 [facility] UROBILINOGEN UA (POCT) 0.2 E.U./dL Normal E.U./dL [facility] Cytology, Medicalon 11-29-19 20 Cytology, Medical Test performed at [place] [address] NAME: ISAIAS SLAUGHTER REQUESTING: ZEE TORO M.D. DIAGNOSIS VOIDED URINE - NEGATIVE FOR HIGH GRADE UROTHELIAL CARCINOMA. DEGENERATIVE CHANGES. SPECIMEN: A) URN, URINE CYTOLOGY VOIDED Description: Materials Prepared & Examined: Volume: ......... 10 # of Monolayers: .......... 1 Color: ............ Yellow # of Slides: ................. Clear: ............. Y 1 CLINICAL INFORMATION: HEMATURIA Electronically Signed: 12/01/2019 Screened by: LINO MOSES(ASCP) Signed Out by: MARIAH RIVERA M.D., PATHOLOGIST Printed on: December 01, 2019 Page 1 of 1 [facility] Comment on above: Performed By: #### C YTOM #### [place] [address] ANES Samuel 10-07-2017 ANES POST HNO ID: [id number] thor: Nahun Tylerervice: AnesthesiologyAuthor Type: AnesthesiologistType: Anesthesia PostOpFiled: 10/09/2017 8:41 AMNote Text:POST ANESTHESIA EVALUATION NOTESERVICE DATE: 10/09/2017SERVICE TIME: 8.41DOB: 1935Vitals: 10/07/1813Temp: 37 ?C (98.6 ?F) 37.2 ?C (99 ?F) 36.6 ?C (97.9 ?F) 10/07/1813BP: 177/84 137/68 163/79 156/75 10/07/1813Pulse: 61 (!) 58 (!) 58 60 10/07/1813Resp: 18 18 18 18 10/07/1813SpO2: 96% 99% 96% 94%Validated Vital Signs: YesPOST ANES STATUS: No apparent anesthetic complications. The patient isappropriately hydrated with stable respiratory and cardiovascular status.Patient has safe and adequate airway control. The patient has appropriatepain relief and no significant post operative nausea or vomiting. Thepatient has achieved baseline mental status.Further assessment by Anesthesia Service: NoneOther Remarks:SIGNATURE: Nahun Amador MD PATIENT NAME: Isaias MontgomeryTE: October 09, 2017 : 8:40 AM PAGER/CONTACT #: anesthesia [facility] ANES PREOPon 10-07-2017 ANES PREOP HNO ID: [id number] thor: Nahun Tylerervice: AnesthesiologyAuthor Type: AnesthesiologistType: Anesthesia PreOpFiled: 10/07/2017 1:18 PMNote Text: ANESTHESIOLOGY DAY OF SURGERY NOTESERVICE DATE: 10/07/2017SERVICE TIME: 1.18DOB: 1935Procedure(s) (LRB):CYSTOSCOPY, RETROPYELOGRAM (N/A)BIOPSY BLADDER (N/A)Surgeon(s):Zee ToroEstimated body mass index is 30.54 kg/(m2) as calculated from thefollowing: Height as of this encounter: 170.2 cm (5' 7). Weight as of this encounter: 88.5 kg (195 lb).Most recent hematocrit and potassium results:Hematocrit 44.2 10/04/2017Potassium 4.2 10/04/2017ANES DOS/PREOP NOTE:Vitals: 306BP: 177/84Pulse: 61Resp: 18Temp: 37 ?C (98.6 ?F)TempSrc: Temporal ArterySpO2: 96%Weight: 88.5 kg (195 lb)Height: 170.2 cm (5' 7)ACTIVE PROBLEM LISTMalignant Neoplasm of Prostate (Hcc)Essential HypertensionGastroenteritis and Colitis Due to RadiationDiverticulosis of Colon (Without Mention of Hemorrhage)Benign Neoplasm of ColonMalignant Neoplasm of Bladder (Hcc)Radiation CystitisPresence of Bare Metal Stent in Right Coronary ArteryHld (Hyperlipidemia)Cad (Coronary Artery Disease)Mediastinoscopy, right thoracotomy, right lower lobectomy 02/21/14arcinoma of Lung (Hcc)Bone Metastasis (Hcc)History of Basal Cell CarcinomaAk (Actinic Keratosis)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)Left Inguinal HerniaPrediabetesPAST MEDICAL HISTORYDiagnosis Date- Benign neoplasm of colon- Coronary artery disease 09/13/13 4.018 Integrity BMS mid-RCA, stent- Diverticulosis of colon (without mention of hemorrhage)- 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- History of basal cell carcinoma- HYPERTENSION NOS 08/03/2006- MALIGN NEOPL PROSTATE 03/05/2006- Malignant neoplasm of bladder, part unspecified 2001 bladder cancer- Other and unspecified hyperlipidemia Hyperlipidemia- PERS HX SKIN MALIGNANCY NEC 11/08/2006PAST SURGICAL HISTORYProcedure Laterality Date- APPENDECTOMY age 11- CARDIAC 2013 stent to RCA- CATARACT EXTRACTION W/ INTRAOCULAR LENS IMPLANT HX Right- COLONOS W/REM POLYP SNARE 12/30/06- COLONOSCOP W/ OR W/O [facility] SPEC 08/25/2012 Colonoscopy report 5 years- PAST SURGICAL HISTORY OF 2001 TURB BLADDER CANCER- REMOVAL OF LUNG,LOBECTOMY 02/21/2014 Mediastinoscopy, right posterolateral thoracotomy, right lower lobectomy,lymphadenectomy, rib blocks- REMOVAL OF TONSILS,<12 Y/O Tonsillectomy- REPAIR ING HERNIA,5+Y/O,REDUCIBL Left 03/19/2017- SIGMOIDOSCOPY FLEX DIAG SigmoidoscopyFAMILY HISTORYProblem Relation Age of Onset- Heart Mother- Heart Father- Ischemic Heart Disease Father- Hypertension Brother elevated cholesterolSocial History:Social HistorySubstance Use Topics- Smoking status: Former Smoker Packs/day: 1.00 Years: 12.00 Types: Cigarettes Quit date: 09/27/1964- Smokeless tobacco: Never Used- Alcohol use NoNo current facility-administered medications on file prior to encounter.Current Outpatient Prescriptions on File Prior to Encounter:atenolol (TENORMIN) 25 mg tablet Take 1 tablet by mouth once daily.simvastatin (ZOCOR) 20 mg tablet Take 1 tablet by mouth daily at bedtime.aspirin (CHILDRENS ASPIRIN) 81 mg chewable tablet Take 1 tablet by mouthonce daily.cyanocobalamin (VITAMIN B-12) 1,000 mcg/mL soln Inject 1 mLintramuscularly once every month.folic acid 1 mg tablet Take 1 tablet by mouth once daily.nitroglycerin sublingual (NITROQUICK) 0.4 mg SL tablet Dissolve 1 tabletunder the tongue as needed. FOR CHEST PAIN. IF NO RELIEF CALL 911ibuprofen (MOTRIN) 200 mg tablet Take 1 tablet by mouth as needed for Pain(Take with food.).Cholecalciferol, Vitamin D3, (VITAMIN D) 1,000 unit cap Take 3 capsules bymouth once daily.Cpeenyilvqcwf-Dfnwdeul-H utein (CENTRUM SILVER) tab Take 1 tablet by mouthonce daily.OS-ELICIA 500 + D 500 MG-125 UNIT TAB Take one(1) tablet two(2) times dailyBY MOUTH.Current Facility-Administered Medications:lactated ringers infusion 30 mL/hr INTRAVENOUS CONTINUOUS Zee F Breauxciprofloxacin 400 mg in D5W 200 mL (CIPRO) 400 mg INTRAVENOUS ONCE Zee FBreauxAllergies:ALLERGIESAlle rgen Reactions- Amoxicillin Diarrhea, GI Upset Patient cannot tolerate this medication- Lisinopril CoughDOS EXAM: Adequate NPO status: YesAnesthetic risks, benefits, alternatives, personnel and consent discussed:YesPatient agrees to proceed: YesPrevious Anesthesia: No history of adverse event.Airway Assessment: MP 2; Neck ROM: Full ROM without neurologic symptoms;Airway Evaluation: No significant abnormalitiesSymptoms of Sleep Apnea: NoneDentition: Teeth intactAdditional Physical Exam:Lungs: Patient health status unchanged since recent history and physical.See history and physical for exam findings.Lungs clear to auscultation. Good diaphragmatic excursion.Cardiac: Patient health status unchanged since recent history andphysical. See history and physical for exam findings.normal S1 and S2; no rubs, no murmurs, and no gallopsAdditional Pertinent Findings: N/ABlood Products: Not anticipated for this procedure.Anesthetic Plan: MAC with SedationPain Management Plan: Parenteral or OralASA Class: 3Other Medical Problems: NoneChronic Beta Ahsan medication administered within 24 hours: N/AI have interviewed and examined the patient. I have reviewed the medicalrecord and/or the pre-anesthesia evaluation, pertinent labs, and testresults.Significant changes in the patient's condition since the History andPhysical, not otherwise documented in primary service progress notes: NoThis contains updated information obtained within 48 hours ofSurgery/Procedure.SIGNATURE: Nahun Amador MD PATIENT NAME: Isaias SlaughterDATE: October 07, 2017 : 1:18 PM CSN: [id number] [facility] BRIEF OP NOTon 10-07-2017 BRIEF OP NOT HNO ID: [id number] thor: Zee Cyndie MunaService: UrologyAuthor Type: PhysicianType: Brief Op NoteFiled: 10/07/2017 2:26 PMNote Text:BRIEF OPERATIVE / PROCEDURE NOTELOG ID: [id number]/Procedure Date: 10/07/2017Incision/Procedure Start Time: 2:17 PMIncision Close/Procedure End Time: 2:24 PMSurgeon(s)/Proceduralist(s) and Inspector Floor Sub Assembly(s):Surgeon(s) and Role: * Zee Toro - PrimaryAlina Additional StaffProcedure(s): cysto, bladder biopsy an dfulgerationAnesthesia: GeneralFindings: bladder tumor x 3Estimated Blood Loss: 0 mlSpecimens: tumorComplications: NonePre-Op/Pre-Procedure Diagnosis: bladder leaionPost-Op/Post-Procedure Diagnosis: Malignant neoplasm of urinary bladder,unspecified site sameSIGNATURE: Zee Toro MD PATIENT NAME: Isaias SlaughterDATE: October 07, 2017 : 2:25 PM PAGER/CONTACT #: [facility] NURSING PROGon 10-07-2017 NURSING PROG HNO ID: [id number] thor: Celso (Rn) CRISTI Carloservice: NursingAuthor Type: Registered NurseType: Nursing Progress NoteFiled: 10/07/2017 3:34 PMNote Text:POST OP LEARNING RESPONSEINSTRUCTION PROVIDED TO: Patient and family memberMETHOD OF INSTRUCTION: Written instruction - handoutsPATIENT / FAMILY RESPONSE: Verbalizes understanding of: dischargeinstructions FOLLOW-UP PLAN: Dr Brown will call for follow upSUPPLEMENTAL MATERIAL: NoneREFERRAL (RECOMMENDATION): NoneElectronically Signed By: Celso Carlos RN In Department[facility] OPERATIVE NOon 10-07-2017 OPERATIVE NO HNO ID: [id number] thor: Zee ToroService: UrologyAuthor Type: PhysicianType: Operative ReportFiled: 10/08/2017 8:22 AMNote Text:[facility]- Operative ReportISAIAS SLAUGHTER WDOB: 1935 AGE: 82 SEX: MMRN: [id number] ACCTNUM: [id number] SVC: UROL LOCATION: [id number] PHYSICIAN: ZEE TORO M.D.DATE OF PROCEDURE: 10/07/2017SURGEON: Zee Toro M.D.BUTTON CUTTER: NONEANESTHESIA: GeneralPREOPERATIVE DIAGNOSIS(ES): Bladder tumor.POSTOPERATIVE DIAGNOSIS(ES): Same.NAME OF OPERATION: Cystoscopy, bladder biopsy and fulguration of bladderlesions.INDICATIONS: The patient is an 82-year-old male who I saw in the officefor evaluation with history of bladder cancer. He was found oncystoscopy to have a papillary lesion lateral to left ureteral orificeand recommended the above procedure. After all risks were discussed withthe patient and his , he stated that he understands and agreed toproceed.ESTIMATED BLOOD LOSS: None.FLUIDS AND ANTIBIOTICS: Per Anesthesia note.PROCEDURE: The patient was brought into the operative suite andidentified by name and number, placed under MAC anesthetic withoutdifficulty, prepped and draped in normal sterile fashion. A 30-degreescope and 22-German sheath were inserted through the urethra and prostatewas noted to have some mild bilobar hypertrophy, was otherwiseunremarkable. Once in the bladder, bladder was viewed in its entiretywith a 30 as well as a 70 degree scope and he had a papillary lesionlateral to the ureteral orifice as well as a subtle small maybe 0.5 cmpapillary lesion along the left side wall. The lesion lateral to the left ureteral orifice was biopsied and the remainder of the tumor fulguratedand the other small lesions were fulgurated. The remainder of thebladder was unremarkable, bladder was drained. The patient was awokenand brought to the recovery room in stable condition.Zee Toro M.D.UrologyTB:[id number]: 10/07/2017 14:30:41T: 10/07/2017 23:48:33Job #: [id number] [facility] PT EDon 10-07-2017 PT ED HNO ID: [id number] thor: CRISTI Pastor Rnervice: NursingAuthor Type: Registered NurseType: Patient EducationFiled: 10/07/2017 1:09 PMNote Text:PRE OP LEARNING ASSESSMENTPROCEDURE/SURGERY: cystoscopyREADINESS TO LEARNCOGNITIVE ABILITY: Alert and orientedMOTIVATION TO LEARN: InterestedFAMILY SUPPORT: High - Very involved in pt carePATIENT LEARNS BEST BY: Verbal InstructionFACTORS AFFECTING LEARNING: NonePHYSICAL LIMITATIONS AFFECTING LEARNING: NoneElectronically Signed By: Syeda Mcleod RN In [facility] SURGICAL PATHOLOGYon 018 SURGICAL PATHOLOGY [facility]: [id number] Physician: ZEE WHITTAKER MD FINAL DIAGNOSISA. Urinary bladder, biopsy - Non-invasive low-grade papillaryurothelial carcinoma. - No muscularis propria is present for evaluation. Comment: Additional H&E levels were obtained.[facility] 10/11/2017 SYNOPTIC REPORT OF ROTH PATHOLOGIC FINDINGSBLADDER, BIOPSY: URINARY BLADDER: TURBTProcedure: BiopsyTumor Site: Not specifiedHistologic Type: Papillary urothelial carcinoma, noninvasiveHistologic Grade: Urothelial carcinoma low-gradeMicroscopic Extent of Tumor: Noninvasive papillary carcinomaMuscularis Propria Presence: No Muscularis propria (detrusor muscle) identifiedLymphovascular Invasion: Not identifiedRepresentative Tumor Block: Specify: A1 Harsh Coker MD(Electronic Signature) SPECIMEN SUBMITTEDA: BLADDER, BIOPSY CLINICAL DATAMALIGNANT NEOPLASM OF URINARY BLADDER, UNSPECIFIED SITECYSTO, BLADDER BIOPSY GROSS DESCRIPTIONA. Received in formalin are two pieces of hayes-pink, soft tissue aggregatingto 0.7 x 0.2 x 0.2 cm. Totally submitted in one cassette.Gross examination performed at [facility], [address] [place] [id number] 10/07/2017 9:05:21 PMPatient ID #: [id number] of Report: 10/11/2017Date of Procedure: 10/07/2017Date of Receipt: 10/07/2017Submitted by: ZEE TORO. Location: MEORDiagnostic interpretation performed at [facility], [address] [facility] [address]. [facility] Comment on above: Performed By: #### P ATHS ####[facility] [place], [place] [phone] NURSING PROGon 10-06-2017 NURSING PROG HNO ID: [id number] thor: Dash Miller (Rn) Donell, RNService: (none)Author Type: Registered NurseType: Nursing Progress NoteFiled: 10/06/2017 12:47 PMNote Text:PACC Nurse Progress NoteHistory AND Physical:PACC Visit Date: 10/04/2017Labs Within Last 6 Months:10/04/2017 CBC Within acceptable limits per anesthesia guidelines CMP within normal limits U/A within acceptable limits for planned procedure Urine CANDS No growthImaging Within Last 12 Months:N/ACardiac Testing:EKG in last 12 Months: Yes: Date: 12/08/2016, Comment: in epicRisk Assessment:No new consults ordered.Anesthesia Review:DOSNarrative:Patient to remain on ASA 84 mg due to bare metal cardiac stent per . Surgeon agreeable to patient remaining on ASA.Pre-op Considerations:CAD - stentLung Cancer S/P Right lower lung lobectomyProstate Ca S/P radiationChart Check:Zenia Marley RNJanuary 2017 7:25 AM [facility] HOSPon 09-22-2017 HOSP Patient:Isaias Slaughter RN: Height:5' 7(1.702 m)Weight:201 lb (91.173 kg)Outpatient Medications as of 10/07/17:cyanocobalamin (VITAMIN B-12) 1,000 mcg/mL solnatenolol (TENORMIN) 25 mg tabletsimvastatin (ZOCOR) 20 mg tabletfolic acid 1 mg tabletnitroglycerin sublingual (NITROQUICK) 0.4 mg SL tabletaspirin (CHILDRENS ASPIRIN) 81 mg chewable tabletibuprofen (MOTRIN) 200 mg tabletCholecalciferol, Vitamin D3, (VITAMIN D) 1,000 unit ogxZvtvcoieioezk-Hcjfpxht-Iiwd in (CENTRUM SILVER) tabOS-ELICIA 500 + D 500 MG-125 UNIT TABAdmission/Clinic Administered Medications as of 10/07/17:lactated ringers infusionciprofloxacin 400 mg in D5W 200 mL (CIPRO)lactated ringers infusionmeperidine (PF) 12.5 mg injection (DEMEROL)fentaNYL 50 mcg/mL 50 mcg injection (SUBLIMAZE)HYDROcodone 5 mg - acetaminophen 325 mg tablet (NORCO)metoclopramide HCl 10 mg tab(s) (REGLAN)metoclopramide HCl 10 mg injection (REGLAN)diphenhydrAMINE 25 mg injection (BENADRYL)Problem List:Malignant neoplasm of prostate (HCC) [C61]Essential hypertension [I10]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 [K52.0]Diverticulosis of colon (without mention of hemorrhage) [K57.30]Benign neoplasm of colon [D12.6]Malignant neoplasm of bladder (HCC) [C67.9]Radiation cystitis [N30.40]Presence of bare metal stent in right coronary artery [Z95.5]HLD (hyperlipidemia) [E78.5]CAD (coronary artery disease) [I25.10]Mediastinoscopy, right thoracotomy, right lower lobectomy 02/21/14 [C34.90]Carcinoma of lung (HCC) [C34.90]Bone metastasis (HCC) [C79.51]History of basal cell carcinoma [Z85.828]AK (actinic keratosis) [L57.0]Malignant 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 (HCC) [C34.31]Left inguinal hernia [K40.90]Prediabetes [R73.03]Allergies:AmoxicillinL isinoprilDate Verified: 10/07/17Lab ValuesLab Value Units Date High LowPOTA* 4.2 mmol/L 10/04/2017 5.1 3.7HEMA* 44.2 % 10/04/2017 51.0 39.0Progress Notes ([facility]):Supriya Marrero RN 09/08/2017 2:07 PM SignedPatient is scheduled tomorrow for cysto/pyelo. At [facility] called patient today-told nurse he took his daily baby ASA today, and alsoCentrum MV.Patient also mentioned if weather is bad tomorrow he will end up canceling.Nurse told patient not to take any ASA or MV tomorrow-please advise.Zee Toro MD 09/08/2017 2:21 PM SignedThanks- let him know that If he would prefer to just r/s the procedure foranother day that's OK with Valentín Marrero RN 09/08/2017 2:35 PM SignedNotified patient of message below, patient verbalized understanding.Please call patient to reschedule procedure-patient would prefer not riskdriving in bad weather-understands to hold ASA/vitamins 5 days prior toprocedure.Baylee Mario RN 09/09/2017 11:28 AM SignedPatient cancelled procedure today, please assist with Reschedule.Vidya Hein Coord 09/21/2017 3:38 PM SignedPatient is scheduled and notified of date and time.Vidya Hein CoordProgress Notes ([facility]):Vidya Santana LPN 09/08/2017 9:22 AM SignedPatient presents for B-12 injection. Denies any problems at this time. Patientinstructed on any SE of medication, verbalized understanding and agreed toproceed with treatment. Tolerated injection well.Vidya Santana LPN [facility] NURSING PROGon 09-08-2017 NURSING PROG HNO ID: [id number] thor: Karine (Rn) CRISTI Kilgoreervice: (none)Author Type: Registered NurseType: Nursing Progress NoteFiled: 09/08/2017 2:02 PMNote Text:PACC Nurse Progress NoteHistory AND Physical:PACC Visit Date: NoneOriginal HANDP Date: Recent H AND P done 08/11/[address] Melchor Within Last 6 Months:CBC: Date 03/17/17- scanned labsBMP/CMP: Date 04/20/17HBA1C: Date 08/09/17- (5.7)UA: Date 08/05/17Imaging Within Last 12 Months:Chest X-rayDate of test: 04/19/17Cardiac Testing:EKG in last 12 Months: Yes: Date: 12/08/16Stress Test Date: 11/15/13 , Comment: normal, no ischemiaRisk Assessment:N/AAnesthesia Review:N/ANarrative:Per HPI: Pre-DM; [id number]- on baby ASA; S/P lung lobectomy-- called surgeon's office and spoke with Elena, and informed thepatient took his baby ASA and Centrum silver today- will notify surgeon.Pre-op Considerations:DOS- glucose POCChart Check:Jarocho Wagner 2016 8:14 AM09/08/17 13:50 called patient AND PREOPERATIVE INSTRUCTIONS Reviewed.Scheduled for Procedure(s):CYSTOSCOPY, RETROPYELOGRAMBIOPSY BLADDER with Surgeon(s):Zee Toro on 09/09/17 [facility]: [phone] -- [address] [facility] [id number].Blood Thinning Medications:- Do NOT stop aspirin or other anticoagulants without consulting with yourcardiologist or prescribing physician. Per patient his took a baby ASA09/08/17- Stop Vitamin E, ALL multi-vitamins, herbals and dietary supplements 7days before surgery. Per patient took Centrum multivitamin 09/08/17- You may take Tylenol (Acetaminophen) or any of your pain medicationsthat do not contain aspirin or NSAIDS as needed.Dietary Restrictions:- No solid food after midnight.- You may have 12 ounces of clear liquids (water, clear juices such asapple juice or gatorade, carbonated beverages, clear tea, black coffee,jello) until 2 hours before scheduled arrival at facility.Pain Medications:Medications:Approv ed medications to take the morning of surgery with a sip of water:AtenololIf you start any new medications after today's visit, please contact [facility] above.Important Reminders:-Wear loose fitting clothing to accommodate bulky dressing or braces thatyou may be wearing post op- Sweat pants, loose fitting tops that zip orbutton in the front will be easiest to put on after your surgery.- Candy, mints, gum and tobacco products are NOT permitted the morning ofsurgery.- Hearing aids, dentures and glasses may be worn the morning of surgery.- NO jewelry, body piercings, makeup, lotion, no deodorant, nail lao,hairpins or contacts are to be worn the day of surgery.If you develop symptoms such as a fever, cold, or flu, or have otherchanges to your health within TWO DAYS of scheduled surgery or the morningof surgery, please contact the surgery center above.Personal Belongings:- Leave ALL valuables and money at home or with family members.For Outpatient Procedures: - YOU MUST HAVE A RESPONSIBLE TIE SAWYER TAKE YOU HOME. A BAG CHECKER OR CABDRIVER CANNOT BE MADE A RESPONSIBLE TIE SAWYER. - We recommend that a responsible person stays with you overnight to takecare of you.- You cannot stay in a hotel alone after outpatient surgery. You will notbe permitted to have your surgery, if you do not have someone to take careof you. Arrival Time for Surgery:- The Surgery Center or hospital where you are having surgery will callthe afternoon before surgery (or Wednesday for Wednesday surgery) with ascheduled arrival time.- If you have not heard by 4 pm, please contact the surgery center above.Please be aware that emergency situations arise, which may delay or changeyour surgical time. If this happens, we will notify you as soon aspossible and regret any inconvenience.Karine Kilgore RN [facility] Vital Signs Date Time Vital Sign Value Performing Clinician Facility 04-23-2025 10:00-0400 Diastolic blood pressure 93 mm[Hg] Thanh Garcia PT Work Phone: [facility] 04-23-2025 10:00-0400 Systolic blood pressure 130 mm[Hg] Thanh Garcia PT Work Phone: [facility] 04-05-2025 09:51-0400 Body height 166 cm Elliott Sylvester MD Work Phone: [facility] 04-05-2025 09:51-0400 Body mass index (BMI) [Ratio] 26.42 kg/m2 Elliott Sylvester MD Work Phone: [facility] 04-05-2025 09:51-0400 Body temperature 97.2 [degF] Elliott Sylvester MD Work Phone: [facility] 04-05-2025 09:51-0400 Body weight 72.8 kg Elliott Sylvester MD Work Phone: [facility] 04-05-2025 09:51-0400 Diastolic blood pressure 77 mm[Hg] Elliott Sylvester MD Work Phone: [facility] 04-05-2025 09:51-0400 Heart rate 65 /min Elliott Sylvester MD Work Phone: [facility] 04-05-2025 09:51-0400 SaO2% (BldA) [Mass fraction] 96 % Elliott Sylvester MD Work Phone: [facility] 04-05-2025 09:51-0400 Systolic blood pressure 146 mm[Hg] Elliott Sylvester MD Work Phone: [facility] 04-03-2025 15:14-0400 Diastolic blood pressure 73 mm[Hg] Dr. Kya Hinton MD Work Phone: [facility] 04-03-2025 15:14-0400 Heart rate 62 /min Dr. Kya Hinton MD Work Phone: [facility] 04-03-2025 15:14-0400 Respiratory rate 18 /min Dr. Kya Hinton MD Work Phone: [facility] 04-03-2025 15:14-0400 Systolic blood pressure 149 mm[Hg] Dr. Kya Hinton MD Work Phone: [facility] 04-03-2025 15:02-0400 Body height 167.[address] Kya Hinton MD Work Phone: [facility] 04-03-2025 15:02-0400 Body mass index (BMI) [Ratio] 25.9 kg/m2 Dr. Kya Hinton MD Work Phone: [facility] 04-03-2025 15:02-0400 Body weight 73.[address] Kya Hinton MD Work Phone: [facility] 03-22-2025 09:00-0400 Diastolic blood pressure 75 mm[Hg] Thanh Garcia PT Work Phone: [facility] Comment on above: AKIKOE and 138/73 03-22-2025 09:00-0400 Systolic blood pressure 132 mm[Hg] Thanh Garcia PT Work Phone: [facility] Comment on above: ZULY and 138/73 03-07-2025 09:59-0400 Diastolic blood pressure 80 mm[Hg] Kya Hinton MD Work Phone: [facility] 03-07-2025 09:59-0400 Systolic blood pressure 134 mm[Hg] Kya Hinton MD Work Phone: [facility] 03-07-2025 09:57-0400 Body mass index (BMI) [Ratio] 26.47 kg/m2 Kya Hinton MD Work Phone: [facility] 03-07-2025 09:57-0400 Body weight 74.39 kg Kya Hinton MD Work Phone: [facility] 03-07-2025 09:57-0400 Heart rate 74 /min Kya Hinton MD Work Phone: [facility] 03-07-2025 09:57-0400 Respiratory rate 12 /min Kya Hinton MD Work Phone: [facility] 03-07-2025 09:57-0400 SaO2% (BldA) [Mass fraction] 96 % Kya Hinton MD Work Phone: [facility] 02-13-2025 11:42-0400 Body height 167.6 cm Juliana Huitron PA-C Work Phone: [facility] 02-13-2025 11:42-0400 Body mass index (BMI) [Ratio] 25.99 kg/m2 Juliana Huitron PA-C Work Phone: [facility] 02-13-2025 11:42-0400 Body temperature 97 [degF] Juliana Junioroney PA-C Work Phone: [facility] 02-13-2025 11:42-0400 Body weight 73.03 kg Juliana Huitron PA-C Work Phone: [facility] 02-13-2025 11:42-0400 Diastolic blood pressure 82 mm[Hg] Juliana Huitron PA-C Work Phone: [facility] Comment on above: Juliana notified of blood pressure. Imelda ent reports PCP is aware of his blood pressure and has started a new medication for treatment. Advised to monitor blood pressure and report readings to PCP. 02-13-2025 11:42-0400 Heart rate 72 /min Juliana Huitron PA-C Work Phone: [facility] 02-13-2025 11:42-0400 Respiratory rate 16 /min Juliana Huitron PA-C Work Phone: [facility] 02-13-2025 11:42-0400 SaO2% (BldA) [Mass fraction] 96 % Juliana Huitron PA-C Work Phone: [facility] 02-13-2025 11:42-0400 Systolic blood pressure 150 mm[Hg] Juliana Huitron PA-C Work Phone: [facility] Comment on above: Juliana notified of blood pressure. Imelda ent reports PCP is aware of his blood pressure and has started a new medication for treatment. Advised to monitor blood pressure and report readings to PCP. 01-23-2025 15:23-0400 Diastolic blood pressure 83 mm[Hg] Kya Hinton MD Work Phone: [facility] 01-23-2025 15:23-0400 Heart rate 67 /min Kya Hinton MD Work Phone: [facility] 01-23-2025 15:23-0400 Systolic blood pressure 147 mm[Hg] Kya Hinton MD Work Phone: [facility] 01-23-2025 14:41-0400 Body height 165.1 cm Kya Hinton MD Work Phone: [facility] 01-23-2025 14:41-0400 Body mass index (BMI) [Ratio] 27.46 kg/m2 Kya Hinton MD Work Phone: [facility] 01-23-2025 14:41-0400 Body weight 74.84 kg Kya Hinton MD Work Phone: [facility] 01-23-2025 14:41-0400 SaO2% (BldA) [Mass fraction] 96 % Kya Hinton MD Work Phone: [facility] 01-11-2025 09:25-0400 Body mass index (BMI) [Ratio] 27.32 kg/m2 Abigail Saavedra Work Phone: [facility] 01-11-2025 09:25-0400 Body temperature 97.11 [degF] Abigail Saavedra Work Phone: [facility] 01-11-2025 09:25-0400 Body weight 74.39 kg Abigail Saavedra Work Phone: [facility] 01-11-2025 09:25-0400 Diastolic blood pressure 74 mm[Hg] Abigail Saavedra Work Phone: [facility] 01-11-2025 09:25-0400 Heart rate 62 /min Abigail Saavedra Work Phone: [facility] 01-11-2025 09:25-0400 Respiratory rate 12 /min Abigail Saavedra Work Phone: [facility] 01-11-2025 09:25-0400 SaO2% (BldA) [Mass fraction] 97 % Abigail Saavedra Work Phone: [facility] 01-11-2025 09:25-0400 Systolic blood pressure 163 mm[Hg] Abigail Saavedra Work Phone: [facility] 10-19-2024 10:01-0500 Diastolic blood pressure 83 mm[Hg] Abigail Saavedra Work Phone: [facility] 10-19-2024 10:01-0500 Systolic blood pressure 144 mm[Hg] Abigail Saavedra Work Phone: [facility] 10-19-2024 09:57-0500 Body mass index (BMI) [Ratio] 27.66 kg/m2 Abigail Saavedra Work Phone: [facility] 10-19-2024 09:57-0500 Body temperature 98.6 [degF] Abigail Saavedra Work Phone: [facility] 10-19-2024 09:57-0500 Body weight 75.3 kg Abigail Farahight Work Phone: [facility] 10-19-2024 09:57-0500 Heart rate 69 /min Abigail Saavedra Work Phone: [facility] 10-19-2024 09:57-0500 Respiratory rate 12 /min Abigail Saavedra Work Phone: [facility] 10-19-2024 09:57-0500 SaO2% (BldA) [Mass fraction] 96 % Abigail Saavedra Work Phone: [facility] 10-17-2024 12:28-0500 Heart rate 72 /min Stanley Bogner PA-C Work Phone: [facility] 10-17-2024 10:59-0500 Body height 165 cm Stanley Bogner PA-C Work Phone: [facility] 10-17-2024 10:59-0500 Body mass index (BMI) [Ratio] 27.84 kg/m2 Stanley Bogner PA-C Work Phone: [facility] 10-17-2024 10:59-0500 Body weight 75.79 kg Stanley Bogner PA-C Work Phone: [facility] 10-17-2024 10:59-0500 Diastolic blood pressure 74 mm[Hg] Stanley Bogner PA-C Work Phone: [facility] 10-17-2024 10:59-0500 SaO2% (BldA) [Mass fraction] 96 % Stanley Bogner PA-C Work Phone: [facility] 10-17-2024 10:59-0500 Systolic blood pressure 138 mm[Hg] Stanley Bogner PA-C Work Phone: [facility] 07-27-2024 09:40-0400 Body mass index (BMI) [Ratio] 27.12 kg/m2 Elliott Sylvester MD Work Phone: [facility] 07-27-2024 09:40-0400 Body temperature 97.3 [degF] Elliott Sylvester MD Work Phone: [facility] 07-27-2024 09:40-0400 Body weight 76.2 kg Elliott Sylvester MD Work Phone: [facility] 07-27-2024 09:40-0400 Diastolic blood pressure 72 mm[Hg] Elliott Sylvester MD Work Phone: [facility] 07-27-2024 09:40-0400 Heart rate 71 /min Elliott Sylvester MD Work Phone: [facility] 07-27-2024 09:40-0400 SaO2% (BldA) [Mass fraction] 98 % Elliott Sylvester MD Work Phone: [facility] 07-27-2024 09:40-0400 Systolic blood pressure 161 mm[Hg] Elliott Sylvester MD Work Phone: [facility] 05-04-2024 08:28-0400 Body mass index (BMI) [Ratio] 26.79 kg/m2 Abigail Saavedra Work Phone: [facility] 05-04-2024 08:28-0400 Body temperature 97.3 [degF] Abigail Saavedra Work Phone: [facility] 05-04-2024 08:28-0400 Body weight 75.3 kg Abigail Saavedra Work Phone: [facility] 05-04-2024 08:28-0400 Diastolic blood pressure 81 mm[Hg] Abigail Saavedra Work Phone: [facility] 05-04-2024 08:28-0400 Heart rate 75 /min Abigail Saavedra Work Phone: [facility] 05-04-2024 08:28-0400 SaO2% (BldA) [Mass fraction] 96 % Abigail Saavedra Work Phone: [facility] 05-04-2024 08:28-0400 Systolic blood pressure 132 mm[Hg] Abigail Saavedra Work Phone: [facility] 02-10-2024 10:40-0400 Body mass index (BMI) [Ratio] 26.63 kg/m2 Injection Wstr Work Phone: [facility] 02-10-2024 10:40-0400 Body temperature 97.59 [degF] Injection Wstr Work Phone: [facility] 02-10-2024 10:40-0400 Body weight 74.84 kg Injection Wstr Work Phone: [facility] 02-10-2024 10:40-0400 Diastolic blood pressure 72 mm[Hg] Injection Wstr Work Phone: [facility] 02-10-2024 10:40-0400 Heart rate 72 /min Injection Wstr Work Phone: [facility] 02-10-2024 10:40-0400 SaO2% (BldA) [Mass fraction] 97 % Injection Wstr Work Phone: [facility] 02-10-2024 10:40-0400 Systolic blood pressure 125 mm[Hg] Injection Wstr Work Phone: [facility] 11-18-2023 10:15-0500 Body temperature 96.91 [degF] Abigail Saavedra Work Phone: [facility] 11-18-2023 10:15-0500 Body weight 74.62 kg Abigail Saavedra Work Phone: [facility] 11-18-2023 10:15-0500 Diastolic blood pressure 73 mm[Hg] Abigail Saavedra Work Phone: [facility] 11-18-2023 10:15-0500 Heart rate 73 /min Abigail Saavedra Work Phone: [facility] 11-18-2023 10:15-0500 SaO2% (BldA) [Mass fraction] 93 % Abigail Saavedra Work Phone: [facility] 11-18-2023 10:15-0500 Systolic blood pressure 144 mm[Hg] Abigail Saavedra Work Phone: [facility] 08-26-2023 09:57-0500 Body temperature 97 [degF] Elliott Sylvester MD Work Phone: [facility] 08-26-2023 09:57-0500 Body weight 75.07 kg Elliott Sylvester MD Work Phone: [facility] 08-26-2023 09:57-0500 Diastolic blood pressure 80 mm[Hg] Elliott Sylvester MD Work Phone: [facility] 08-26-2023 09:57-0500 Heart rate 68 /min Elliott Sylvester MD Work Phone: [facility] 08-26-2023 09:57-0500 SaO2% (BldA) [Mass fraction] 96 % Elliott Sylvester MD Work Phone: [facility] 08-26-2023 09:57-0500 Systolic blood pressure 142 mm[Hg] Elliott Sylvester MD Work Phone: [facility] 07-16-2023 11:27-0400 Diastolic blood pressure 74 mm[Hg] Lupe Mary Lou BOX BENDER.ACQUISITIONS ASSISTANT Work Phone: [facility] 07-16-2023 11:27-0400 Systolic blood pressure 152 mm[Hg] Lupe Mary Lou BOX BENDER.ACQUISITIONS ASSISTANT Work Phone: [facility] 07-16-2023 11:22-0400 Body weight 74.84 kg Lupe Mary Lou BOX BENDER.ACQUISITIONS ASSISTANT Work Phone: [facility] 07-16-2023 11:22-0400 Heart rate 74 /min Lupe Mary Lou BOX BENDER.ACQUISITIONS ASSISTANT Work Phone: [facility] 07-16-2023 11:22-0400 SaO2% (BldA) [Mass fraction] 97 % Lupe Mary Lou BOX BENDER.ACQUISITIONS ASSISTANT Work Phone: [facility] 06-03-2023 09:21-0400 Body temperature 97.59 [degF] Elliott Sylvester MD Work Phone: [facility] 06-03-2023 09:21-0400 Body weight 74.84 kg Elliott Sylvester MD Work Phone: [facility] 06-03-2023 09:21-0400 Diastolic blood pressure 79 mm[Hg] Elliott Sylvester MD Work Phone: [facility] 06-03-2023 09:21-0400 Heart rate 76 /min Elliott Sylvester MD Work Phone: [facility] 06-03-2023 09:21-0400 Systolic blood pressure 139 mm[Hg] Elliott Sylvester MD Work Phone: [facility] 03-03-2023 10:02-0400 Body temperature 97.2 [degF] Isaias Barbarai DO Work Phone: [facility] 03-03-2023 10:02-0400 Body weight 73.48 kg Isaias Masci DO Work Phone: [facility] 03-03-2023 10:02-0400 Diastolic blood pressure 76 mm[Hg] Isaias Masci DO Work Phone: [facility] 03-03-2023 10:02-0400 Heart rate 68 /min Isaias Masci DO Work Phone: [facility] 03-03-2023 10:02-0400 SaO2% (BldA) [Mass fraction] 95 % Isaias Masci DO Work Phone: [facility] 03-03-2023 10:02-0400 Systolic blood pressure 136 mm[Hg] Isaias Masci DO Work Phone: [facility] 01-26-2023 10:47-0400 Body height 167.6 cm Pac 7 Work Phone: [facility] 01-26-2023 10:47-0400 Body temperature 97.39 [degF] Pac 7 Work Phone: [facility] 01-26-2023 10:47-0400 Body weight 75.48 kg Pac 7 Work Phone: [facility] 01-26-2023 10:47-0400 Diastolic blood pressure 73 mm[Hg] Pac 7 Work Phone: [facility] 01-26-2023 10:47-0400 Heart rate 58 /min Pac 7 Work Phone: [facility] 01-26-2023 10:47-0400 SaO2% (BldA) [Mass fraction] 96 % Pac 7 Work Phone: [facility] 01-26-2023 10:47-0400 Systolic blood pressure 164 mm[Hg] Pac 7 Work Phone: [facility] 01-05-2023 11:28-0400 Body temperature 97.59 [degF] Haydee Lemus MD Work Phone: [facility] 01-05-2023 11:28-0400 Body weight 76.43 kg Haydee Lemus MD Work Phone: [facility] 01-05-2023 11:28-0400 Diastolic blood pressure 79 mm[Hg] Haydee Lemus MD Work Phone: [facility] 01-05-2023 11:28-0400 Heart rate 60 /min Haydee Lemus MD Work Phone: [facility] 01-05-2023 11:28-0400 Systolic blood pressure 145 mm[Hg] Haydee Lemus MD Work Phone: [facility] 12-17-2022 13:57-0400 Body temperature 97.2 [degF] Haydee Lemus MD Work Phone: [facility] 12-17-2022 13:57-0400 Body weight 75.52 kg Haydee Lemus MD Work Phone: [facility] 12-17-2022 13:57-0400 Diastolic blood pressure 70 mm[Hg] Haydee Lemus MD Work Phone: [facility] 12-17-2022 13:57-0400 Heart rate 65 /min Haydee Lemus MD Work Phone: [facility] 12-17-2022 13:57-0400 SaO2% (BldA) [Mass fraction] 96 % Haydee Lemus MD Work Phone: [facility] 12-17-2022 13:57-0400 Systolic blood pressure 140 mm[Hg] Haydee Lemus MD Work Phone: [facility] 12-09-2022 09:57-0400 Body temperature 97.59 [degF] Haydee Lemus MD Work Phone: [facility] 12-09-2022 09:57-0400 Body weight 74.84 kg Haydee Lemus MD Work Phone: [facility] 12-09-2022 09:57-0400 Diastolic blood pressure 76 mm[Hg] Haydee Lemus MD Work Phone: [facility] 12-09-2022 09:57-0400 Heart rate 64 /min Haydee Lemus MD Work Phone: [facility] 12-09-2022 09:57-0400 SaO2% (BldA) [Mass fraction] 95 % Haydee Lemus MD Work Phone: [facility] 12-09-2022 09:57-0400 Systolic blood pressure 141 mm[Hg] Haydee Lemus MD Work Phone: [facility] 09-16-2022 09:58-0500 Body temperature 97.81 [degF] Injection Wstr Work Phone: [facility] 09-16-2022 09:58-0500 Body weight 75.3 kg Injection Wstr Work Phone: [facility] 09-16-2022 09:58-0500 Diastolic blood pressure 73 mm[Hg] Injection Wstr Work Phone: [facility] 09-16-2022 09:58-0500 Heart rate 70 /min Injection Wstr Work Phone: [facility] 09-16-2022 09:58-0500 Systolic blood pressure 137 mm[Hg] Injection Wstr Work Phone: [facility] 09-01-2022 14:22-0500 Body height 167.6 cm Pst 1 [facility] 09-01-2022 14:22-0500 Body temperature 98.6 [degF] Pst [address] [facility] 09-01-2022 14:22-0500 Body weight 74.39 kg Pst 1 [facility] 09-01-2022 14:22-0500 Diastolic blood pressure 87 mm[Hg] Pst 1 [facility] 09-01-2022 14:22-0500 Heart rate 72 /min Pst 1 [facility] 09-01-2022 14:22-0500 Respiratory rate 20 /min Pst [address] [facility] 09-01-2022 14:22-0500 SaO2% (BldA) [Mass fraction] 96 % Pst 1 [facility] 09-01-2022 14:220500 Systolic blood pressure 150 mm[Hg] Pst 1 [facility] 07-29-2022 11:09-0400 Body height 167.[address] Kya Hinton Work Phone: [facility] Work Phone: 07-29-2022 11:09-0400 Body mass index (BMI) [Ratio] 27 kg/m2 Dr. Kya Hinton Work Phone: [facility] Work Phone: 07-29-2022 11:09-0400 Body weight 75.[address] Kya Hinton Work Phone: [facility] Work Phone: 07-29-2022 11:09-0400 Diastolic blood pressure 78 mm[Hg] Dr. Kya Hinton Work Phone: [facility] Work Phone: 07-29-2022 11:09-0400 Heart rate 64 /min Dr. Kya Hinton Work Phone: [facility] Work Phone: 07-29-2022 11:09-0400 Respiratory rate 18 /min Dr. Kya Hinton Work Phone: [facility] Work Phone: 07-29-2022 11:09-0400 Systolic blood pressure 144 mm[Hg] Dr. Kya Hinton Work Phone: [facility] Work Phone: 07-16-2022 09:28-0400 Diastolic blood pressure 81 mm[Hg] Miguel Angel Reese MD Work Phone: [facility] 07-16-2022 09:28-0400 Heart rate 75 /min Miguel Angel Reese MD Work Phone: [facility] 07-16-2022 09:28-0400 Systolic blood pressure 155 mm[Hg] Miguel Angel Reese MD Work Phone: [facility] 07-16-2022 09:26-0400 Body temperature 98.29 [degF] Miguel Angel Reese MD Work Phone: [facility] 07-16-2022 09:26-0400 Body weight 76.2 kg Miguel Angel Reese MD Work Phone: [facility] 04-22-2022 13:05-0400 Body weight 75.3 kg Emily Older BOX BENDER.ACQUISITIONS ASSISTANT Work Phone: [facility] 04-22-2022 13:05-0400 Diastolic blood pressure 74 mm[Hg] Emily Older BOX BENDER.ACQUISITIONS ASSISTANT Work Phone: [facility] 04-22-2022 13:05-0400 Heart rate 58 /min Emily Older BOX BENDER.ACQUISITIONS ASSISTANT Work Phone: [facility] 04-22-2022 13:05-0400 Respiratory rate 20 /min Emily Older BOX BENDER.ACQUISITIONS ASSISTANT Work Phone: [facility] 04-22-2022 13:05-0400 Systolic blood pressure 142 mm[Hg] Emily Older BOX BENDER.ACQUISITIONS ASSISTANT Work Phone: [facility] 04-15-2022 12:43-0400 Body height 167.6 cm Zee Toro MD Work Phone: [facility] 04-15-2022 12:43-0400 Body weight 73.48 kg Zee Toro MD Work Phone: [facility] 01-28-2022 15:20-0400 Body height 167.6 cm Zee Toro MD Work Phone: [facility] 01-28-2022 15:20-0400 Body weight 76.57 kg Zee Toro MD Work Phone: [facility] 01-07-2022 08:56-0400 Body temperature 97.59 [degF] Miguel Angel Reese MD Work Phone: [facility] 01-07-2022 08:56-0400 Body weight 78.93 kg Miguel Angel Reese MD Work Phone: [facility] 01-07-2022 08:56-0400 Diastolic blood pressure 70 mm[Hg] Miguel Angel Reese MD Work Phone: [facility] 01-07-2022 08:56-0400 Heart rate 57 /min Miguel Angel Reese MD Work Phone: [facility] 01-07-2022 08:56-0400 SaO2% (BldA) [Mass fraction] 96 % Miguel Angel Reese MD Work Phone: [facility] 01-07-2022 08:56-0400 Systolic blood pressure 158 mm[Hg] Miguel Angel Reese MD Work Phone: [facility] Encounters Encounter Date Encounter Type Care Provider Facility Start: 05-03-2025 End: 05-03-2025 ambulatory [facility] Facility:[facility] Start: 04-23-2025 End: 04-23-2025 OT/PT/Speech Visit Thanh Garcia PT Work Phone: [facility] Comment on above: Balance disorder (Pr imary Dx); Ambulatory dysfunction Start: 04-05-2025 End: 04-05-2025 ambulatory Injection Ankit [facility] Work Phone: Hematology/Oncology Comment on above: Prostate cancer (HCC ) (Primary Dx); 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 Kya Hinton MD Work Phone: -[facility] Start: 03-22-2025 End: 03-22-2025 OT/PT/Speech Visit Thanh Garcia PT Work Phone: [facility] Comment on above: Balance disorder; Ambulatory dysfunction Start: 03-07-2025 End: 03-07-2025 Office outpatient visit 25 minutes Kya Hinton MD Work Phone: [facility] [place] Comment on above: Essential hypertensi on (Primary Dx); Ambulatory dysfunction; Balance disorder; Hyperkalemia; Screening for depression; Encounter for screening examination for other mental health and behavioral disorders; Personal history of malignant neoplasm of lung; Personal history of prostate cancer Start: 03-07-2025 End: 03-07-2025 ambulatory KYA HINTON Facility:[facility] Start: 02-14-2025 End: 04-16-2025 Follow-up encounter Juliana Huitron PA-C Work Phone: Urology Comment on above: Results Start: 02-13-2025 End: 02-13-2025 Patient encounter procedure Juliana Huitron PA-C Work Phone: Urology Comment on above: Gross hematuria (Hailey dash Dx); Painless hematuria; Screening for genitourinary condition Start: 02-13-2025 End: 02-13-2025 ambulatory KYA HINTON Facility:[facility] Start: 02-06-2025 End: 02-09-2025 Telephone encounter Kya Hinton MD Work Phone: [facility] [place] Comment on above: Patient Question Start: 01-23-2025 End: 01-23-2025 Office outpatient visit 25 minutes Kya Hinton MD Work Phone: [facility] [place] Comment on above: Essential hypertensi on (Primary Dx); Coronary artery disease involving [place] coronary artery of [place] heart without angina pectoris; Stage 3a chronic kidney disease (HCC); Prediabetes; Personal history of malignant neoplasm of lung Start: 01-23-2025 End: 01-23-2025 ambulatory [facility] Facility:[facility] Start: 01-23-2025 End: 03-25-2025 Follow-up encounter Kya Hinton MD Work Phone: [facility] [place] Start: 01-22-2025 End: 01-22-2025 ambulatory [facility] Facility:[facility] Start: 01-11-2025 End: 01-11-2025 Patient encounter procedure Abigail Saavedra Work Phone: Hematology/Oncology Start: 01-11-2025 End: 01-11-2025 ambulatory Injection Ankit [facility] Work Phone: Hematology/Oncology Comment on above: Prostate cancer (HCC ) (Primary Dx); 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) Prostate cancer (HCC ) (Primary Dx); Skin lesion; Hx of cancer of lung Start: 01-09-2025 End: 01-12-2025 ambulatory Kya Hinton MD Work Phone: Internal Medicine [place] [id number] Start: 11-05-2024 End: 11-07-2024 Refill Chel Rich APRN.CNP Work Phone: Hematology/Oncology Comment on above: Refill Request Start: 10-29-2024 End: 10-30-2024 Refill Isaias Mahoney DO Work Phone: Hematology/Oncology Comment on above: Refill Request Start: 10-19-2024 End: 10-19-2024 Patient encounter procedure Abigail Saavedra Work Phone: Hematology/Oncology Start: 10-19-2024 End: 10-19-2024 Subsequent hospital visit by physician Fernanad [facility] [place] [place] Work Phone: Radiology Comment on above: Encounter for follow -up surveillance of lung cancer [Z08, Z85.118] Start: 10-19-2024 End: 10-19-2024 ambulatory Abigail Saavedra Work Phone: Hematology/Oncology Comment on above: Prostate cancer (HCC ) (Primary Dx); 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); Essential thrombocytosis (HCC); Hx of cancer of lung Start: 10-17-2024 End: 10-17-2024 ambulatory [facility] Facility:[facility] Start: 10-17-2024 End: 10-17-2024 Office outpatient visit 25 minutes Stanley Mckeon PA-C Work Phone: [facility] [place] Comment on above: Essential thrombocyt osis (HCC) (Primary Dx); 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); Stage 3a chronic kidney disease (HCC); Depression, unspecified depression type; Essential hypertension Start: 10-08-2024 End: 10-12-2024 Refill Chel Rich APRN.CNP Work Phone: Internal [facility] [place] Comment on above: Refill Request Start: 10-04-2024 End: 10-05-2024 Refill Elliott Sylvester MD Work Phone: Hematology/Oncology Comment on above: Refill Request Start: 09-29-2024 End: 09-29-2024 Refill Isiaas Mahoney DO Work Phone: Hematology/Oncology Comment on above: Refill Request Start: 07-30-2024 End: 07-31-2024 Refill Isaias Jimenezi DO Work Phone: Hematology/Oncology Comment on above: Refill Request Amlodipine refill Start: 07-28-2024 End: 07-28-2024 Telephone encounter Elliott Sylvester MD Work Phone: Hematology/Oncology Comment on above: Results Start: 07-27-2024 End: 07-27-2024 ambulatory Injection Ankit [facility] Work Phone: Hematology/Oncology Comment on above: Prostate cancer (HCC ) (Primary Dx); 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) Start: 07-27-2024 End: 07-27-2024 Follow-up encounter Elliott Sylvester MD Work Phone: Hematology/Oncology Comment on above: Prostate cancer (HCC ) (Primary Dx); Skin lesion; Encounter for follow-up surveillance of lung cancer Start: 07-27-2024 End: 07-27-2024 Patient encounter procedure Elliott Sylvester MD Work Phone: Hematology/Oncology Start: 07-27-2024 End: 07-27-2024 [facility] Facility:[facility] Start: 05-22-2024 End: 05-22-2024 Refill Stanley Mckeon PA-C Work Phone: [facility] [place] Start: 05-14-2024 End: 05-17-2024 Refill Isaias Mahoney DO Work Phone: Hematology/Oncology Comment on above: Refill Request Start: 05-04-2024 End: 05-04-2024 ambulatory Injection Ankit [facility] Work Phone: Hematology/Oncology Comment on above: Prostate cancer (HCC ) (Primary Dx); 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) Prostate cancer (HCC ) (Primary Dx); Essential thrombocytosis (HCC); Hx of bladder cancer; Hx of cancer of lung Start: 05-04-2024 End: 05-04-2024 Patient encounter procedure Abigail Saavedra Work Phone: Hematology/Oncology Start: 04-13-2024 [facility] Facility:[facility] Start: 04-09-2024 Refill Patricia JESUS Work Phone: Internal Medicine [place] Comment on above: Refill Request Start: 02-10-2024 Telephone encounter Elliott mcpherson MD Work Phone: Hematology/Oncology Comment on above: Results Start: 02-10-2024 End: 02-10-2024 ambulatory Injection Ankit [facility] Work Phone: Hematology/Oncology Comment on above: Prostate cancer (HCC ) (Primary Dx); 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) Start: 01-09-2024 Refill Chel Rich APRN, .CNP Work Phone: Internal Medicine [place] Comment on above: Refill Request Start: 12-29-2023 Telephone encounter Kya ignacio MD Work Phone: Internal Medicine [place] Comment on above: Faxed to [facility] Start: 11-18-2023 End: 11-18-2023 ambulatory [facility] Work Phone: Hematology/Oncology Comment on above: 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); Prostate cancer (HCC) Start: 11-18-2023 End: 11-18-2023 Follow-up encounter Abigail Saavedra Work Phone: Hematology/Oncology Comment on above: Prostate cancer (HCC ) (Primary Dx); Essential thrombocytosis (HCC); Encounter for follow-up surveillance of bladder cancer; Encounter for follow-up surveillance of lung cancer Start: 11-18-2023 End: 11-18-2023 Patient encounter procedure Abigail Saavedra Work Phone: [facility] Start: 11-18-2023 End: 11-18-2023 Subsequent hospital visit by physician Xr [facility] Work Phone: Radiology Comment on above: Prostate cancer (HCC ) [C61] Start: 11-17-2023 Orders Only Elliott webster MD Work Phone: Hematology/Oncology Comment on above: Prostate cancer (HCC ) (Primary Dx); 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); Essential thrombocytosis (HCC); 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) Start: 11-01-2023 Refill Kya Michel Work Phone: Hematology/Oncology Comment on above: Refill Request Start: 08-26-2023 End: 08-26-2023 ambulatory [facility] Work Phone: Hematology/Oncology Comment on above: 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); Prostate cancer (HCC) Prostate cancer (HCC ) (Primary Dx); Essential thrombocytosis (HCC); Malignant neoplasm of prostate (HCC) Start: 08-26-2023 End: 08-26-2023 Patient encounter procedure Elliott Sylvester MD Work Phone: [facility] Start: 08-08-2023 Refill Chel Rich BOX BENDER .ACQUISITIONS ASSISTANT Work Phone: Internal Medicine [place] Comment on above: Refill Request Start: 08-02-2023 End: 08-02-2023 ambulatory Anny Bowman GRAPHIC COORDINATOR Work Phone: [facility] Physical Therapy Comment on above: Unsteady gait (Prima ry Dx) Start: 07-29-2023 Refill Elliott webster MD Work Phone: Hematology/Oncology Comment on above: Refill Request Start: 07-27-2023 End: 07-27-2023 ambulatory Jade O'Hardik PT [facility] Therapy Comment on above: Unsteady gait (Prima ry Dx) Start: 07-20-2023 End: 07-20-2023 ambulatory Jade O'Hardik PT [facility] Comment on above: Unsteady gait (Prima ry Dx) Start: 07-16-2023 Telephone encounter Sudha quiles RN Work Phone: Hematology/Oncology Comment on above: Care Coordination (F ollow Up Note ) Start: 07-16-2023 End: 07-16-2023 Patient encounter procedure Lupe Barreto BOX BENDER.ACQUISITIONS ASSISTANT Work Phone: Internal Medicine [place] Comment on above: Unsteady gait (Prima ry Dx); Frequent falls; Prostate cancer (HCC); 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); B12 deficiency Start: 07-14-2023 Refill Chel Rich BOX BENDER .ACQUISITIONS ASSISTANT Work Phone: Internal Medicine [place] Comment on above: Refill Request Start: 07-13-2023 Telephone encounter Sudha quiles RN Work Phone: Hematology/Oncology Comment on above: Care Coordination (F ollow Up Note ) Start: 06-11-2023 Refill Elliott webster MD Work Phone: Hematology/Oncology Comment on above: Refill Request Start: 06-03-2023 End: 06-03-2023 ambulatory Injection Ankit [facility] Work Phone: Hematology/Oncology Comment on above: 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); Prostate cancer (HCC) Essential thrombocyt osis (HCC) (Primary Dx); Prostate cancer (HCC); 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) Start: 06-03-2023 End: 06-03-2023 Patient encounter procedure Elliott Sylvester MD Work Phone: [facility] Start: 06-03-2023 End: 06-03-2023 Subsequent hospital visit by physician Xr [facility] [place] [facility] Work Phone: Radiology Comment on above: Essential thrombocyt osis (HCC) [D47.3] Start: 05-17-2023 Telephone encounter Elliott mcpherson MD Work Phone: Hematology/Oncology Comment on above: Appointment Cancelle d Start: 05-16-2023 Refill Chel Older BOX BENDER .ACQUISITIONS ASSISTANT Work Phone: Internal Medicine [place] Comment on above: Refill Request Start: 05-12-2023 Refill Isaias Mckinley Work Phone: Hematology/Oncology Comment on above: Refill Request Start: 04-29-2023 Telephone encounter Zee shaikh MD Work Phone: Urology Comment on above: No Show Start: 04-19-2023 Refill Chel Older BOX BENDER .ACQUISITIONS ASSISTANT Work Phone: [facility] [place] Comment on above: Refill Request Start: 04-12-2023 Refill Chel Older BOX BENDER .ACQUISITIONS ASSISTANT Work Phone: Internal Medicine [place] Comment on above: Refill Request Start: 04-12-2023 Telephone encounter Isaias gay DO Work Phone: Hematology/Oncology Comment on above: Refill Request Start: 04-07-2023 Refill Chel Older BOX BENDER .ACQUISITIONS ASSISTANT Work Phone: Internal Medicine [place] Comment on above: Refill Request Start: 03-21-2023 Telephone encounter Isaias gay DO Work Phone: Hematology/Oncology Comment on above: Results Start: 03-17-2023 Telephone encounter Zee shaikh MD Work Phone: Urology Comment on above: Appointment Start: 03-12-2023 Refill Fco Canseco MD Work Phone: Hematology/Oncology Comment on above: Refill Request Start: 03-03-2023 End: 03-03-2023 ambulatory Injection Ankit [facility] Work Phone: Hematology/Oncology Comment on above: 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); Prostate cancer (HCC) Prostate cancer (HCC ) (Primary Dx); 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); Malignant neoplasm of urinary bladder, unspecified site (HCC); Malignant neoplasm of right ureter (HCC); Malignant 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 (HCC); Thrombocytosis Start: 03-03-2023 End: 03-03-2023 Patient encounter procedure Isaias Mahoney DO Work Phone: [facility] Start: 03-02-2023 Orders Only Isaias Mahoney D O Work Phone: Hematology/Oncology Comment on above: 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) (Primary Dx); Prostate cancer (HCC) Start: 02-03-2023 End: 02-03-2023 ambulatory Ruthann Clay MD Work Phone: Urology Comment on above: Urothelial carcinoma of kidney, 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(Primary Dx); Stage 3a chronic kidney disease (HCC) Start: 02-03-2023 End: 02-03-2023 Telemedicine consultation with patient Ruthann Clay MD Work Phone: [facility] Start: 01-26-2023 End: 01-26-2023 Admission to [facility] Main 7 Work Phone: [facility] Start: 01-26-2023 End: 01-26-2023 ambulatory [facility] Main 7 Work Phone: Pre Anesthesia Comment on above: Coronary artery dise ase involving [place] coronary artery of [place] heart without angina pectoris; Carcinoma of right lung (HCC); Essential hypertension; Prostate cancer (HCC) Start: 01-21-2023 ambulatory Bonnie Barrett RN Work Phone: Urology Start: 01-20-2023 End: 01-20-2023 Patient encounter procedure Ruthann Clay MD Work Phone: Urology Comment on above: Hydronephrosis with ureteral stricture, 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); Malignant neoplasm of right ureter (HCC) Start: 01-20-2023 ambulatory Ruthann gilbert MD Work Phone: Urology Start: 01-05-2023 Telephone encounter Sudha quiles RN Work Phone: Hematology/Oncology Comment on above: Care Coordination (O RAL ANTI-CANCER AGENTS EDUCATION/) Patient Update Start: 01-05-2023 End: 01-05-2023 ambulatory Haydee Lemus MD Work Phone: Hematology/Oncology Comment on above: 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) (Primary Dx); Prostate cancer (HCC) Start: 01-05-2023 End: 01-05-2023 Patient encounter procedure Haydee Lemus MD Work Phone: [facility] Start: 12-30-2022 ambulatory Maty mancilla BOX BENDER.ACQUISITIONS ASSISTANT Work Phone: Urology Start: 12-30-2022 Telephone encounter Maty sotelo BOX BENDER.ACQUISITIONS ASSISTANT Work Phone: Urology Comment on above: Results Start: 12-30-2022 End: 12-30-2022 Patient encounter procedure Maty Canchola BOX BENDER.ACQUISITIONS ASSISTANT Work Phone: Urology Comment on above: Hydronephrosis with ureteral stricture, 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) Start: 12-29-2022 Refill Haydee Lemus MD Work Phone: Hematology/Oncology Comment on above: Refill Request Start: 12-17-2022 End: 12-17-2022 ambulatory Haydee Lemus MD Work Phone: Hematology/Oncology Comment on above: Prostate cancer (HCC ) (Primary Dx); 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); Malignant neoplasm of right ureter (HCC) Start: 12-17-2022 End: 12-17-2022 Patient encounter procedure Haydee Lemus MD Work Phone: [facility] Start: 12-17-2022 Telephone encounter Haydee laguna MD Work Phone: Hematology/Oncology Comment on above: Question Start: 12-10-2022 End: 12-10-2022 [facility] Work Phone: Radiology Comment on above: Hydronephrosis with ureteral stricture, not elsewhere classified [N13.1] Start: 12-09-2022 End: 12-09-2022 ambulatory Injection Ankit [facility] Work Phone: Hematology/Oncology Comment on above: 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); Prostate cancer (HCC) Hydronephrosis with ureteral stricture, 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); Prostate cancer (HCC); 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); Malignant neoplasm of right ureter (HCC) Refill Request Start: 12-09-2022 End: 12-09-2022 Patient encounter procedure Haydee Lemus MD Work Phone: [facility] [employer] Start: 12-08-2022 Orders Only Haydee Lemus MD Work Phone: Hematology/Oncology Comment on above: Carcinoma of right l serafin (HCC) (Primary Dx); Malignant neoplasm of right ureter (HCC); Malignant neoplasm of prostate (HCC); 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 Start: 09-01-2022 End: 09-01-2022 ambulatory Pst 1 Pre Surgical Testing Comment on above: Preop examination [Z 01.818 (ICD-10-CM)] (Primary Dx); Primary hypertension [I10 (ICD-10-CM)]; Malignant neoplasm of urinary bladder, unspecified site (HCC) [C67.9 (ICD-10-CM)]; Mixed hyperlipidemia [E78.2 (ICD-10-CM)]; Coronary artery disease involving [place] coronary artery of [place] heart without angina pectoris [I25.10 (ICD-10-CM)] Start: 09-01-2022 End: 09-01-2022 Preprocedural examination done Pst 1 Pre Surgical Testing Start: 08-31-2022 Non-patient / Non-visit Dr. Abdulaziz Hinton Work Phone: [facility] Start: 08-31-2022 End: 08-31-[address] Kya Hinton Work Phone: [facility] Work Phone: Start: 08-31-2022 End: 08-31-[address] Kya Hinton Work Phone: [facility] Start: 08-11-2022 Orders Only Zee Toro MD Work Phone: Urology Comment on above: Malignant neoplasm o f right ureter (HCC) (Primary Dx) Malignant neoplasm o f urinary bladder, unspecified site (HCC) (Primary Dx) Start: 08-09-2022 Telephone encounter Isaias gay DO Work Phone: Hematology/Oncology Comment on above: Refill Request Start: 08-06-2022 Telephone encounter Zee shaikh MD Work Phone: Urology Comment on above: Post-Op Visit; Order s Start: 07-29-2022 Telephone encounter Zee shaikh MD Work Phone: Urology Comment on above: Opened In Error Start: 07-29-[address] Shahid Hinton Work Phone: [facility] Start: 07-29-2022 End: 07-29-2022 Admission to same day surgery center Dr. Kya Hinton Work Phone: [facility] Start: 07-29-2022 End: 07-29-[address] 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); Prostate cancer (HCC); Malignant neoplasm of right ureter (HCC); Carcinoma of right lung (HCC) Start: 07-16-2022 End: 07-16-2022 Patient encounter procedure Miguel Angel Reese MD Work Phone: [facility] Start: 07-10-2022 End: 07-10-2022 Subsequent hospital visit by physician Ct Prep [facility] Cat Scan Comment on above: Malignant neoplasm o f prostate (HCC) [C61] Start: 07-05-2022 Refill Chel Rich APRN, .CNP Work Phone: Internal Medicine [place] Comment on above: Refill Request Start: 07-05-2022 Refill Chel Rich BOX BENDER .ACQUISITIONS ASSISTANT Work Phone: [facility] [place] Comment on above: Refill Request Start: 06-18-2022 Refill Miguel Angel Reese MD Work Phone: Hematology/Oncology Comment on above: Refill Request Start: 06-06-2022 Refill Miguel Angel Reese MD Work Phone: Hematology/Oncology Comment on above: Refill Request Start: 05-24-2022 Refill Isaias Mckinley Work Phone: Hematology/Oncology Comment on above: Refill Request Start: 04-22-2022 End: 04-22-2022 Patient encounter procedure Emily Rich BOX BENDER.ACQUISITIONS ASSISTANT Work Phone: [facility] Medicine [place] Comment on above: Anxiety in acute str ess reaction (Primary Dx) Start: 04-20-2022 Telephone encounter Kya ignacio MD Work Phone: Internal Medicine [place] Comment on above: Patient Request Start: 04-15-2022 End: 04-15-2022 Patient encounter procedure Zee Toro MD Work Phone: Urology Comment on above: Malignant neoplasm o f urinary bladder, unspecified site (HCC) (Primary Dx); Malignant neoplasm of right ureter (HCC); BPH with obstruction/lower urinary tract symptoms; History of prostate cancer Start: 04-06-2022 Refill Chel Rich BOX BENDER .ACQUISITIONS ASSISTANT Work Phone: [facility] [place] Comment on above: Refill Request Start: 04-01-2022 End: 04-01-2022 ambulatory Injection Ankit [facility] Work Phone: Hematology/Oncology Comment on above: 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); Prostate cancer (HCC) Start: 03-25-2022 Telephone encounter Zee shaikh MD Work Phone: Urology Comment on above: Patient Question Start: 03-19-2022 Telephone encounter Zee shaikh MD Work Phone: Urology Comment on above: Surgical Followup Malignant neoplasm o f right ureter (HCC) (Primary Dx) Start: 03-18-2022 Telephone encounter Kya ignacio MD Work Phone: Internal Medicine [place] Comment on above: Physical therapy Ord er Start: 03-16-2022 Telephone encounter Kya ignacio MD Work Phone: [facility] [place] Comment on above: Patient Update Start: 02-18-2022 Telephone encounter Zee shaikh MD Work Phone: Urology Comment on above: Schedule Surgery Malignant neoplasm o f urinary bladder, unspecified site (HCC) (Primary Dx) Start: 01-28-2022 End: 01-28-2022 Patient encounter procedure Zee Toro MD Work Phone: Urology Comment on above: Malignant neoplasm o f urinary bladder, unspecified site (HCC) (Primary Dx); Malignant neoplasm of right ureter (HCC); BPH with obstruction/lower urinary tract symptoms Start: 01-07-2022 End: 01-07-2022 ambulatory [facility] Work Phone: Hematology/Oncology Comment on above: 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); Prostate cancer (HCC) Prostate cancer (HCC ) (Primary Dx); Malignant neoplasm of urinary bladder, unspecified site (HCC); Carcinoma of right lung (HCC) Start: 01-07-2022 End: 01-07-2022 Patient encounter procedure Miguel Angel Reese MD Work Phone: [facility] Start: 01-05-2022 End: 01-05-2022 Subsequent hospital visit by physician Ct Prep [facility] Cat Scan Start: 01-04-2022 Refill Chel Rich APRN, .CNP Work Phone: Internal Medicine [place] Comment on above: Refill Request Start: 10-07-2017 End: 10-07-2017 Ambulatory ZEE TORO [facility] Procedures Date Procedure Procedure Detail Performing Clinician Start: 03-07-2025 Adult depression scr eening assessment Kya Hinton MD Work Phone: Start: 02-13-2025 Culture bacterial quanttative colony count urine Juliana Huitron PA-C Work Phone: Start: 02-13-2025 Cytp slctv cell enha ncement interpj xcpt c/v Juliana Huitron PA-C Work Phone: Start: 02-13-2025 Urnls dip stick/tabl et rgnt auto w/o microscopy Juliana Huitron PA-C Work Phone: Start: 10-19-2024 Radiologic exam ches t 2 views Elliott Sylvester MD Work Phone: Start: 06-03-2023 Radiologic exam ches t 2 views Elliott Sylvester MD Work Phone: Start: 01-20-2023 Urnls dip stick/tabl et rgnt auto w/o microscopy Bulk Order Provider Start: 12-30-2022 Urnls dip stick/tabl et rgnt auto w/o microscopy Bulk Order Provider Start: 12-10-2022 Us retroperitoneal r eal time w/image complete Haydee Lemus MD Work Phone: Start: 08-31-2022 Cardiovascular stres s test using pharmacologic stress agent Dr. Kya Hinton Work Phone: Start: 01-28-2022 Urnls dip stick/tabl et rgnt auto w/o microscopy Zee Toro MD Work Phone: Plan of Treatment Date Care Activity Detail Author Start: 04-05-2028 Diabetes Screening Diabetes Screening [facility] Start: 01-12-2028 Diabetes Screening Diabetes Screening [facility] Start: 10-19-2027 Diabetes Screening Diabetes Screening [facility] Start: 07-27-2027 Diabetes Screening Diabetes Screening [facility] Start: 05-04-2027 Diabetes Screening Diabetes Screening [facility] Start: 03-07-2026 Anxiety Screening Anxiety Screening [facility] Start: 03-07-2026 Covid-19 Vaccine () Covid-19 Vaccine () [facility] Comment on above: Postponed from 05/28/2024 (Declined at t his time) Start: 03-07-2026 Depression Screening Depression Screening [facility] Start: 03-03-2026 DIABETES SCREEN DIABETES SCREEN [facility] Start: 03-03-2026 Diabetes Screening Diabetes Screening [facility] Start: 01-26-2026 DIABETES SCREEN DIABETES SCREEN [facility] Start: 01-22-2026 Hepatitis B surface antibody level LDL Cholesterol [facility] Start: 12-30-2025 DIABETES SCREEN DIABETES SCREEN [facility] Start: 12-17-2025 DIABETES SCREEN DIABETES SCREEN [facility] Start: 12-07-2025 DIABETES SCREEN DIABETES SCREEN [facility] Start: 09-16-2025 DIABETES SCREEN DIABETES SCREEN [facility] Start: 07-10-2025 DIABETES SCREEN DIABETES SCREEN [facility] Start: 06-28-2025 End: 06-28-2025 ambulatory [place] [place] [facility] Comment on above: (SO)CBC/CMP/PSA* 3MO OV/LABS EARLY/IN J TODAY* HIGINIO Q3MO LUPRON/LAB&OV T HIWOT* Start: 06-19-2025 DIABETES SCREEN DIABETES SCREEN [facility] Start: 06-07-2025 End: 06-07-2025 Patient encounter procedure 06/07/2025 9:40 AM EDT Office Visit [facility] [place] [address] [place] [address] Chel Rich APRN.ACQUISITIONS ASSISTANT [address], [place] [id number] follow up 3 months Internal Medicine [place] Comment on above: follow up 3 months Start: 05-28-2025 Influenza vaccination [facility] Start: 04-23-2025 End: 04-23-2025 OT/PT/Speech Visit 04/23/2025 10:45 AM EDT OT/PT/Speech Visit [facility] [address] [place] [address] Thanh Garcia, PT [address] [facility] [place] [id number] Balance disorder [R26.89] [facility] Comment on above: Balance disorder [R26.89] Start: 04-06-2025 End: 07-06-2025 Basic metabolic 2000 panel - Serum or Plasma BASIC METABOLIC PANEL Lab Routine Hyperkalemia Expected: 04/06/2025, Expires: 07/06/[address] [facility] Work Phone: Comment on above: Expected: 04/06/2025, Expires: Start: 04-05-2025 End: 04-05-2025 ambulatory [place] [facility] Comment on above: (SO)CBC/CMP/PSA* 3MO OV/LABS EARLY/IN J TODAY* ABRAMOVICH Q3MO LUPRON/LAB&OV T HIWOT* Start: 03-27-2025 DIABETES SCREEN DIABETES SCREEN [facility] Start: 03-22-2025 End: 03-22-2025 OT/PT/Speech Visit 03/22/2025 9:15 AM EDT OT/PT/Speech Visit [facility] [address] [place] [address] Thanh Garcia PT [address] [place], [place] [address] Balance disorder [R26.89]; Ambulatory dysfunction [R26.2] [facility] Comment on above: Balance disorder [R26.89]; Ambulatory dy sfunction [R26.2] Start: 03-14-2025 End: 03-14-2025 Patient encounter procedure 03/14/2025 9:30 AM EDT Office Visit Urology [address] [address] Rehan Yuen MD [address] [place] [address] cysto/ct prior 02/23gross hematuria/ref by Valeria Huitron [facility] Comment on above: cysto/ct prior 02/23gross hematuria/ref by Valeria Huitron Start: 03-07-2025 End: 03-07-2025 Patient encounter procedure 03/07/2025 9:40 AM EDT Office Visit [facility] [place] [address] [place] [address] Kya Hinton MD [address] [place] [address] 6 week follow up [facility] [place] Comment on above: 6 week follow up Start: 02-27-2025 Cystourethroscopy CYSTO.PANENDO Procedures Routine Gross hematuria Expected: 02/27/2025 (Approximate) [facility] Comment on above: Expected: 02/27/2025 (Approximate) Start: 02-20-2025 End: 05-22-2025 Creatinine and Glomerular filtration rate.predicted panel - Serum, Plasma or Blood CREATININE BLD Lab Routine Gross hematuria Expected: 02/20/2025 (Approximate), Expires: 05/22/2025 [facility] Comment on above: Expected: 02/20/2025 (Approximate), Expi res: 05/22/2025 Start: 02-20-2025 End: 03-16-2026 CT Kidney WO and W contrast IV CT UROGRAM WO/W IVCON Radiology Routine Gross hematuria Expected: 02/20/2025 (Approximate), Expires: 03/16/2026 [facility] Comment on above: Expected: 02/20/2025 (Approximate), Expi res: 03/16/2026 Start: 02-13-2025 End: 02-13-2025 Patient encounter procedure 02/13/2025 11:30 AM EDT Office Visit Urology [address] [place] [address] Juliana Huitron PA-C [address] [place] [address] FU: Painless hematuria. PCP referred. [facility] Comment on above: FU: Painless hematuria. PCP referred. [facility] Start: 01-23-2025 End: 01-23-2025 Patient encounter procedure 01/23/2025 2:40 PM EDT Office Visit Internal Medicine [place] [address] [place] [address] Kya Hinton MD [address] [place] [address] 3 month follow up [facility] Comment on above: 3 month follow up Start: 01-23-2025 End: 04-24-2025 Basic metabolic 2000 panel - Serum or Plasma BASIC METABOLIC PANEL Lab Routine Essential hypertension Expected: 01/23/2025, Expires: 04/24/[address] [facility] Work Phone: Comment on above: Expected: 01/23/2025, Expires: Start: 01-11-2025 End: 01-11-2025 ambulatory [facility] Comment on above: (SO)CBC/PSA* 3MO OV/LABS EARLY/AKIKO PRON TODAY* HIGINIO Q3MO LUPRON/LAB&OV T HIWOT/AUTH EXP 09/26/25* Start: 01-09-2025 End: 04-10-2025 Lipid 1996 panel - Serum or Plasma LIPID PANEL, FASTING Lab Routine HLD (hyperlipidemia) Expected: 01/09/2025, Expires: 04/10/[address] [facility] Work Phone: Comment on above: Expected: 01/09/2025, Expires: Start: 01-05-2025 DIABETES SCREEN DIABETES SCREEN [facility] Start: 10-19-2024 End: 10-19-2024 ambulatory Hematology/Oncolog y Comment on above: Q3MO LUPRON/LAB&OV TODAY/AUTH EXP ?* Q3MO LUPRON/LAB&OV T HIWOT/AUTH EXP 09/26/25* Q3MO ELIGARD/LAB&OV TODAY/AUTH EXP 09/26/25* Start: 10-19-2024 End: 10-19-2024 Patient encounter procedure 10/19/2024 9:50 AM EST Appointment Radiology [address] [place] [address] Encounter for follow-up surveillance of lung cancer [Z08, Z85.118] Radiology Comment on above: Encounter for follow-up surveillance of lung cancer [Z08, Z85.118] Start: 10-19-2024 End: 10-19-2024 ambulatory [place] [facility] Comment on above: (SO)CBC/PSA* 3MO OV/LABS EARLY/AKIKO PRON TODAY* HIGINIO Start: 10-17-2024 End: 10-17-2024 Patient encounter procedure 10/17/2024 11:00 AM EST Office Visit Family Medicine [place] [address] [place] [address] Stanley Mckeon PA-C [address] [place] [address] medicare wellness [facility] Comment on above: medicare wellness Start: 09-27-2024 Advance Directive Discussion Advance Directive Discussion [facility] Start: 09-27-2024 Medicare Advantage Annual Wellness Visit Medicare Advantage Annual Wellness Visit [facility] Start: 07-27-2024 End: 07-27-2024 ambulatory 07/27/2024 10:45 AM EDT Infusion [facility] [address] [place] [address] Wstr, Injection Ankit [facility] [address] [place] [address] Q3MO LUPRON/LAB&OV TODAY/AUTH EXP 09/26/24* Hematology/Oncolog y Comment on above: Q3MO LUPRON/LAB&OV TODAY/AUTH EXP * Start: 07-27-2024 End: 07-27-2024 ambulatory [facility] Comment on above: (SO)CBC/PSA* 3MO OV/LABS EARLY/AKIKO PRON TODAY* HIGINIO Start: 05-28-2024 Covid-19 Vaccine ( season) Covid-19 Vaccine ( season) [facility] Start: 05-28-2024 Influenza vaccination [facility] Start: 05-04-2024 End: 05-04-2024 ambulatory 05/04/2024 9:45 AM EDT Infusion Center Hematology/Oncology [address] [place] [address] Wstr, Injection Ankit [facility] [address] [place] [address] Q3MO LUPRON/LAB&OV TODAY/AUTH EXP 09/26/24* Hematology/Oncolog y Comment on above: Q3MO LUPRON/LAB&OV TODAY/AUTH EXP * Start: 05-04-2024 End: 05-04-2024 ambulatory [facility] Comment on above: (SO)CBC/PSA* 3MO OV/LABS EARLY/AKIKO PRON TODAY* HIGINIO Start: 03-26-2024 Influenza vaccination Influenza Vaccine (#1) [place] Amina banegas Comment on above: Postponed from 05/28/2023 (Declined at t his time) Start: 11-18-2023 End: 12-15-2024 XR Chest PA and Lateral [facility] Work Phone: Comment on above: Expected: 11/18/2023, Expires: 5 Start: 09-27-2023 Advance Directive Discussion Advance Directive Discussion [facility] Start: 09-27-2023 Behavioral Health Screening Behavioral Health Screening [facility] Start: 09-27-2023 Depression Assessment Depression Assessment [facility] Start: 05-28-2023 Covid-19 Vaccine () Covid-19 Vaccine () [facility] Start: 05-28-2023 Influenza vaccination [facility] Start: 03-03-2023 End: 05-03-2023 CBC W Auto Differential panel - Blood [facility] Work Phone: Comment on above: Expected: 03/03/2023, Expires: 3 Start: 03-03-2023 End: 05-03-2023 Comprehensive metabolic 2000 panel - Serum or Plasma 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 Work Phone: Comment on above: Expected: 03/03/2023, Expires: 3 Start: 03-03-2023 End: 05-03-2023 MYELOPROLIFERATIVE NEOPLASM PANEL BLOOD MYELOPROLIFERATIVE NEOPLASM PANEL BLOOD Lab Routine Thrombocytosis Expected: 03/03/2023, Expires: 05/03/[address] [facility] Work Phone: Comment on above: Expected: 03/03/2023, Expires: 3 Start: 03-03-2023 End: 05-03-2023 Prostate specific Ag [Mass/volume] in Serum or Plasma [facility] Work Phone: Comment on above: Expected: 03/03/2023, Expires: 3 Start: 01-21-2023 End: 03-23-2023 aPTT in Platelet poor plasma by Coagulation assay ACTIVATED PTT Lab Routine Urothelial carcinoma (HCC) Expected: 01/21/2023, Expires: 03/23/[address] [facility] Work Phone: Comment on above: Expected: 01/21/2023, Expires: Start: 01-21-2023 End: 03-23-2023 CBC W Auto Differential panel - Blood CBC + DIFF Lab Routine Urothelial carcinoma (HCC) Expected: 01/21/2023, Expires: 03/23/[address] [facility] Work Phone: Comment on above: Expected: 01/21/2023, Expires: 3 Start: 01-21-2023 End: 03-23-2023 Comprehensive metabolic 2000 panel - Serum or Plasma COMP METABOLIC PANEL Lab Routine Urothelial carcinoma (HCC) Expected: 01/21/2023, Expires: 03/23/[address] [facility] Work Phone: Comment on above: Expected: 01/21/2023, Expires: 3 Start: 01-21-2023 End: 03-23-2023 PT panel - Platelet poor plasma by Coagulation assay PROTHROMBIN TIME/PT Lab Routine Urothelial carcinoma (HCC) Expected: 01/21/2023, Expires: 03/23/[address] [facility] Work Phone: Comment on above: Expected: 01/21/2023, Expires: 3 Start: 12-16-2022 End: 02-15-2023 Basic metabolic 2000 panel - Serum or Plasma BASIC METABOLIC PNL Lab STAT Hydronephrosis with ureteral stricture, not elsewhere classified Expected: 12/16/2022, Expires: 02/15/[address] 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 Work Phone: Comment on above: Expected: 12/09/2022, Expires: 4 Start: 09-27-2022 ADVANCE DIRECTIVE DISCUSSION ADVANCE DIRECTIVE DISCUSSION [facility] Start: 09-27-2022 DEPRESSION ASSESSMENT DEPRESSION ASSESSMENT [facility] Start: 09-15-2022 End: 11-15-2022 Bacteria identified in Urine by Culture URINE CULTURE Microbiology Routine Malignant neoplasm of right ureter (HCC) Expected: 09/15/2022, Expires: 11/15/[address] [facility] Work Phone: Comment on above: Expected: 09/15/2022, Expires: 3 Start: 09-15-2022 End: 11-15-2022 Basic metabolic 2000 panel - Serum or Plasma BASIC METABOLIC PNL Lab Routine Malignant neoplasm of right ureter (HCC) Expected: 09/15/2022, Expires: 11/15/[address] [facility] Work Phone: Comment on above: Expected: 09/15/2022, Expires: 3 Start: 09-15-2022 End: 11-15-2022 Hematocrit [Volume Fraction] of Blood HEMATOCRIT (HCT) Lab Routine Malignant neoplasm of right ureter (HCC) Expected: 09/15/2022, Expires: 11/15/[address] [facility] Work Phone: Comment on above: Expected: 09/15/2022, Expires: 3 Start: 09-15-2022 End: 11-15-2022 Hemoglobin [Mass/volume] in Blood HEMOGLOBIN (HGB) Lab Routine Malignant neoplasm of right ureter (HCC) Expected: 09/15/2022, Expires: 11/15/[address] [facility] Work Phone: Comment on above: Expected: 09/15/2022, Expires: 3 Start: 09-15-2022 End: 11-15-2022 TYPE AND SCREEN,30 DAY TYPE AND SCREEN,30 DAY Blood Bank Routine Malignant neoplasm of right ureter (HCC) Expected: 09/15/2022, Expires: 11/15/[address] [facility] Work Phone: Comment on above: Expected: 09/15/2022, Expires: 3 Start: 09-01-2022 End: 11-01-2022 Bacteria identified in Urine by Culture URINE CULTURE Microbiology Routine Malignant neoplasm of urinary bladder, unspecified site (HCC) Expected: 09/01/2022, Expires: 11/01/[address] [facility] Work Phone: Comment on above: Expected: 09/01/2022, Expires: 3 Start: 05-28-2022 Influenza vaccination [facility] Start: 03-19-2022 End: 05-19-2022 Bacteria identified in Urine by Culture URINE CULTURE Microbiology Routine Malignant neoplasm of right ureter (HCC) Expected: 03/19/2022, Expires: 05/19/[address] [facility] Work Phone: Comment on above: Expected: 03/19/2022, Expires: 2 Start: 03-19-2022 End: 05-19-2022 Basic metabolic 2000 panel - Serum or Plasma BASIC METABOLIC PNL Lab Routine Malignant neoplasm of right ureter (HCC) Expected: 03/19/2022, Expires: 05/19/[address] [facility] Work Phone: Comment on above: Expected: 03/19/2022, Expires: 2 Start: 03-19-2022 End: 05-19-2022 Hematocrit [Volume Fraction] of Blood HEMATOCRIT (HCT) Lab Routine Malignant neoplasm of right ureter (HCC) Expected: 03/19/2022, Expires: 05/19/[address] [facility] Work Phone: Comment on above: Expected: 03/19/2022, Expires: 2 Start: 03-19-2022 End: 05-19-2022 Hemoglobin [Mass/volume] in Blood HEMOGLOBIN (HGB) Lab Routine Malignant neoplasm of right ureter (HCC) Expected: 03/19/2022, Expires: 05/19/[address] [facility] Work Phone: Comment on above: Expected: 03/19/2022, Expires: 2 Start: 03-19-2022 End: 05-19-2022 TYPE AND SCREEN,30 DAY TYPE AND SCREEN,30 DAY Blood Bank Routine Malignant neoplasm of right ureter (HCC) Expected: 03/19/2022, Expires: 05/19/[address] [facility] Work Phone: Comment on above: Expected: 03/19/2022, Expires: 2 Start: 03-10-2022 End: 05-10-2022 Bacteria identified in Urine by Culture URINE CULTURE Microbiology Routine Malignant neoplasm of urinary bladder, unspecified site (HCC) Expected: 03/10/2022, Expires: 05/10/[address] [facility] Work Phone: Comment on above: Expected: 03/10/2022, Expires: 2 Start: 09-27-2021 ADVANCE DIRECTIVE DISCUSSION ADVANCE DIRECTIVE DISCUSSION [facility] Start: 09-27-2021 DEPRESSION ASSESSMENT DEPRESSION ASSESSMENT [facility] Start: 07-16-2021 COVID-19 VACCINE (3 - Booster for Pfizer series) COVID-19 VACCINE (3 - Booster for Pfizer series) [facility] Start: 04-10-2021 COVID-19 VACCINE (3 - Booster for Pfizer series) COVID-19 VACCINE (3 - Booster for Pfizer series) [facility] Start: 04-10-2021 COVID-19 VACCINE (3 - Pfizer series) COVID-19 VACCINE (3 - Pfizer series) [facility] Start: 03-13-2021 COVID-19 VACCINE (3 - Pfizer risk 4-dose series) COVID-19 VACCINE (3 - Pfizer risk 4-dose series) [facility] Start: 03-13-2021 COVID-19 VACCINE (3 - Pfizer risk series) COVID-19 VACCINE (3 - Pfizer risk series) [facility] Start: 02-25-2021 Hepatitis B surface antibody level LDL CHOLESTEROL [facility] Start: 08-23-2019 PNEUMOCOCCAL: 65+ (3 - PPSV23 or PCV20) PNEUMOCOCCAL: 65+ (3 - PPSV23 or PCV20) [facility] Start: 2011 RSV Vaccine (1 - 1-dose 75+ series) RSV Vaccine (1 - 1-dose 75+ series) [facility] Start: 1996 RSV Vaccine (1 - 1-dose 60+ series) RSV Vaccine (1 - 1-dose 60+ series) [facility] Start: 1986 SHINGRIX VACCINE (1 of 2) SHINGRIX VACCINE (1 of 2) [facility] Start: 1955 SHINGRIX VACCINE (1 of 2) SHINGRIX VACCINE (1 of 2) [facility] Start: 1955 Urine microalbumin profile [facility] Start: 1954 Anxiety Screening Anxiety Screening [facility] Start: 1954 Depression Screening Depression Screening [facility] End: 08-24-2024 CBC W Auto Differential panel - Blood CBC + DIFF Lab Routine Prostate cancer (HCC) Essential thrombocytosis (HCC) Every 3 months for 4 Occurrences starting 08/25/2023 until 08/24/2024, [address] [facility] Work Phone: Comment on above: Every 3 months for 4 Occurrences startin g 08/25/2023 until 08/24/2024, 1 completed End: 07-10-2022 Ct abdomen & pelvis w/contrast material [facility] Work Phone: Comment on above: 1 Occurrences starting 07/10/2022 until 07/10/2022 End: 07-10-2022 CT CHEST W IVCON [facility] Work Phone: Comment on above: 1 Occurrences starting 07/10/2022 until 07/10/2022 End: 01-22-2024 ECG COMPLETE ECG COMPLETE ECG Routine Urothelial carcinoma (HCC) 1 Occurrences starting 01/21/2023 until 01/22/[address] [facility] Work Phone: Comment on above: 1 Occurrences starting 01/21/2023 until 01/22/2024 H&P for surgery H&P FOR SURGERY Procedures Routine Malignant neoplasm of urinary bladder, unspecified site (HCC) Ordered: 02/18/[address] [facility] Work Phone: Comment on above: Ordered: 02/18/2022 H&P for surgery H&P FOR SURGERY Procedures Routine Malignant neoplasm of right ureter (HCC) Ordered: 03/19/[address] [facility] Work Phone: Comment on above: Ordered: 03/19/2022 H&P for surgery [facility] Work Phone: Comment on above: Ordered: 08/11/2022 POST VOID RESIDUAL POST VOID RES IDUAL Procedures Routine Painless hematuria Screening for genitourinary condition Ordered: 02/13/[address] [facility] Work Phone: Comment on above: Ordered: 02/13/2025 End: 08-24-2024 Prostate specific Ag [Mass/volume] in Serum or Plasma PSA/PROSTSPECAG DIAG Lab Routine Prostate cancer (HCC) Essential thrombocytosis (HCC) Every 3 months for 4 Occurrences starting 08/25/2023 until 08/24/2024, [address] [facility] Work Phone: Comment on above: Every 3 months for 4 Occurrences startin g 08/25/2023 until 08/24/2024, 1 completed End: 01-10-2024 US KIDNEY/BLADDER US KIDNEY/BLADDER Radiology Routine Hydronephrosis with ureteral stricture, not elsewhere classified 1 Occurrences starting 12/09/2022 until 01/10/[address] [facility] Work Phone: Comment on above: 1 Occurrences starting 12/09/2022 until 01/10/2024 End: 01-08-2024 US KIDNEY/BLADDER US KIDNEY/BLADDER Radiology RICKY Hydronephrosis with ureteral stricture, not elsewhere classified 1 Occurrences starting 12/09/2022 until 01/08/[address] [facility] Work Phone: Comment on above: 1 Occurrences starting 12/09/2022 until 01/08/2024 End: 08-26-2025 XR Chest PA and Lateral XR CHEST 2V FRONTAL/LAT Radiology Routine Encounter for follow-up surveillance of lung cancer 1 Occurrences starting 07/27/2024 until 08/26/[address] [facility] Work Phone: Comment on above: 1 Occurrences starting 07/27/2024 until 08/26/2025 [facility] Immunizations Immunization Date Immunization Notes Care Provider Krysten khanna 07-20-2019 influenza, high dose seasonal, preservative-free Ct [facility] Work Phone: 07-20-2019 influenza virus vacc ine, unspecified formulation Elliott Sylvester MD Work Phone: [facility] 08-23-2018 pneumococcal conjuga te vaccine, [address] [facility] Work Phone: 06-23-2018 influenza, high dose seasonal, preservative-free Ct [facility] Work Phone: 07-08-2017 influenza, high dose seasonal, preservative-free Ct [facility] Work Phone: 09-14-2016 influenza, high dose seasonal, preservative-free Ct [facility] 07-16-2015 influenza, high dose seasonal, preservative-free Ct [facility] Work Phone: 07-09-2014 influenza, injectabl e, quadrivalent, preservative free Ct [facility] 09-13-2013 influenza virus vacc ine, unspecified formulation Ct [facility] Work Phone: 09-08-2012 influenza nasal, unspecified formulation Lupe Mary Lou BOX BENDER.ACQUISITIONS ASSISTANT Work Phone: [facility] Work Phone: 09-14-2011 influenza nasal, unspecified formulation Lupe Mary Lou BOX BENDER.ACQUISITIONS ASSISTANT Work Phone: [facility] Work Phone: 07-04-2010 influenza virus vacc ine, whole virus Lupe Mary Lou BOX BENDER.ACQUISITIONS ASSISTANT Work Phone: [facility] Work Phone: 06-27-2010 influenza nasal, unspecified formulation Lupe Mary Lou BOX BENDER.ACQUISITIONS ASSISTANT Work Phone: [facility] Work Phone: 07-09-2009 influenza nasal, unspecified formulation Lupe Mary Lou BOX BENDER.ACQUISITIONS ASSISTANT Work Phone: [facility] Work Phone: 07-28-2008 influenza nasal, unspecified formulation Lupe Mary Lou BOX BENDER.ACQUISITIONS ASSISTANT Work Phone: [facility] Work Phone: 07-27-2008 influenza virus vacc ine, whole virus Lupe Mary Lou BOX BENDER.ACQUISITIONS ASSISTANT Work Phone: [facility] Work Phone: 07-26-2007 influenza virus vacc ine, whole virus Lupe Mary Lou BOX BENDER.ACQUISITIONS ASSISTANT Work Phone: [facility] Work Phone: 06-27-2003 pneumococcal polysaccharide vaccine, [address] [facility] 07-24-2002 influenza nasal, unspecified formulation Lupe Mary Lou BOX BENDER.ACQUISITIONS ASSISTANT Work Phone: [facility] Work Phone: 07-06-2001 influenza virus vacc ine, whole virus Lupe Mary Lou BOX BENDER.ACQUISITIONS ASSISTANT Work Phone: [facility] Work Phone: Payers Date Payer Category Payer Self-pay [id number] 2015 Medicare MMO MEDICARE MMO MEDADVANTAGE HMO [id number] 2015-Present [phone] [address] [place] [address] O [id number] 2015 Medicare MMO MEDICARE MMO MEDADVANTAGE HMO [id number] 2015-Present [phone] [address] [place] [address] O [id number] 2015 Medicare (Managed Care) MMO RAJESH DVANTAGE HMO [id number] 2015 Medicare [id number] Medicare [id number] Unknown [id number] Unknown [id number] Unknown [id number] Social History Date Type Detail Facility Start: 03-23-2019 End: 10-17-2024 Tobacco smoking status NHIS Ex-smoker [facility] Start: 1952 End: 09-27-1964 History of tobacco use Current smoker [facility] Start: 1952 End: 09-27-1964 History of tobacco use Cigarette Smoker [facility] Start: 10-15-2021 End: 07-16-2023 Alcohol intake Current non-drinker of alcohol (finding) [facility] Start: 03-23-2019 End: 08-05-2022 Tobacco Comment ETS: Father smoked in childhood home, then quit. Spouse non-smoker. [facility] Start: 1935 Sex Assigned At Not on file C [facility] Start: 12-28-2021 End: 08-05-2022 Exposure to SARS-CoV-2 (event) Not sure [facility] Start: 03-23-2019 End: 02-03-2023 Cigarettes smoked current (pack per day) - Reported 1 [facility] Work Phone: Start: 03-23-2019 End: 10-17-2024 Tobacco use and exposure Smokeless tobacco non-user [facility] Work Phone: Start: 07-29-2022 Tobacco smoking stat us [facility] Unknown if ever smoked [facility] Work Phone: Start: 04-25-2015 None [facility] Start: 04-25-2015 Spouse/ Signif icant Other [facility] Start: 02-07-2021 Non-smoker [facility] Start: 1935 Sex Assigned At Male W [facility] Start: 02-03-2023 End: 04-07-2023 Tobacco use panel [facility] Work Phone: Adult Depression Screening Assessment 6 [facility] Work Phone: Start: 08-26-2023 End: 10-17-2024 Alcohol intake Current drinker of alcohol (finding) [facility] Start: 08-26-2023 Alcohol Comment occ [facility] Start: 02-22-2024 Alcohol Comment rare [facility] Start: 02-13-2025 End: 04-05-2025 Alcoholic beverage intake Ex-drinker (finding) [facility] Medical Equipment Procedure Code Equipment Code Equipment Origin al Text Equipment Identifier Dates Laparoscopy, exploratory CLIP,[facility]MOLOCK MED WECK FDA Start: 07-22-2020 Laparoscopy, exploratory CLIP,HEMOLOCK MED WECK FDA Start: 07-22-2020 Functional Status Date Assessment Result Facility 09-01-2022 Are you deaf, or do you have serious difficulty hearing Yes 09/01/2022 2:05 PM Kelly Laura APRN.ACQUISITIONS ASSISTANT Yes [facility] Work Phone: 09-01-2022 Are you blind, or do you have serious difficulty seeing, even when wearing glasses No 09/01/2022 2:05 PM Kelly Laura APRN.CNP No [facility] 09-01-2022 Do you have serious difficulty walking or climbing stairs No 09/01/2022 2:05 PM Kelly Laura APRN.ACQUISITIONS ASSISTANT No [facility] 09-01-2022 Do you have difficul ty dressing or bathing No 09/01/2022 2:05 PM Kelly Laura APRN.CNP No [facility] 09-01-2022 Because of a physica l, mental, or emotional condition, do you have difficulty doing errands alone such as visiting a physician's office or shopping No 09/01/2022 2:05 PM Kelly Laura APRN.CNP No [facility] Mental Status Date Assessment Result Facility 09-01-2022 Because of a physica l, mental, or emotional condition, do you have serious difficulty concentrating, remembering, or making decisions No 09/01/2022 2:05 PM Kelly Laura APRN.CNP No [facility] Clinical Notes 10-18-2015 to 05-03-2025 Thanh Garcia, PT - 04/23/2025 11:20 AM Thanh Rodriguez, PT - 04/23/2025 11:12 AM Winter Damon LPN - 04/05/2025 10:07 AM Elliott Cross MD - 04/05/2025 9:55 AM EDTPatient Instructions Note Date & Type Note Facility 05-03-2025 Note HNO ID: [id number] Author: CHEL RICH APRN.ACQUISITIONS ASSISTANT Service: ? Author Type: Nurse Practitioner Type: Progress Notes Filed: 05/03/2025 12:49 Note Text: CC: Patient presents with: Ear Problem: B/L ear flushing HPI Isaias Slaughter is a 89 year old male who presents today for cerumen impaction. [facility] told her had bilateral ear wax build up, was given ear drops and told to go to PCP for flushing prior to upcoming fitting for hearing aides. Used drops as instructed for 5 days and reports some removal of ear wax. Denies ear pain, fever, chills, headache, dizziness, cough,, Shortness of Breath, wheezing, or sinus concerns,. 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 History of basal cell carcinoma HLD (hyperlipidemia) Hx of cancer of lung Hydronephrosis with ureteral stricture, not elsewhere classified HYPERTENSION NOS 08/03/2006 MALIGN NEOPL PROSTATE 03/05/2006 Malignant neoplasm of bladder, part unspecified 09/27/2001 bladder cancer 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 Malignant 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 (HCC) Malignant neoplasm of urinary bladder (HCC) Other and unspecified hyperlipidemia Hyperlipidemia PERS HX SKIN MALIGNANCY NEC 11/08/2006 Prediabetes Prostate cancer (HCC) Stage 3a chronic kidney disease (CKD) (HCC) 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, 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PAST SURGICAL HISTORY Procedure Laterality Date ANES TRANSURETHRAL RESECTION OF BLADDER TUMOR 2012 ANES TRANSURETHRAL RESECTION OF BLADDER TUMOR 2010 APPENDECTOMY 194 BLADDER BIOSPY FULGUR 2018 CARDIAC 2013 stent to RCA CATARACT EXTRACTION W/ INTRAOCULAR LENS IMPLANT HX Right COLON SURGERY HX 2020 COLONOSCOPY FLX DX W/COLLJ SPEC WHEN PFRMD 08/25/2012 Colonoscopy report 5 years COLSC FLX W/RMVL OF TUMOR POLYP LESION SNARE TQ 12/30/2006 CYSTOSCOPY,+URETEROSCOPY Right 03/2021 CYSTOURETHROSCOPY,FULGUR .5-2CM LESN 01/2021 CYSTOURETHROSCOPY,FULGUR .5-2CM LESN 2011 EGD REMOVAL TUMOR POLYP/OTHER LESION SNARE TECH 02/2022 done at [facility] PAST SURGICAL HISTORY OF 2001 TURB BLADDER CANCER PAST SURGICAL HISTORY OF 2013 cardiac stent x1 RMVL LUNG OTHER THAN PNEUMONECTOMY 1 LOBE LOBECT 02/21/2014 Mediastinoscopy, right posterolateral thoracotomy, right lower lobectomy, lymphadenectomy, rib blocks RPR 1ST INGUN HRNA AGE 6 YRS/> REDUCIBLE Left 03/19/2017 SIGMOIDOSCOPY FLX DX W/COLLJ SPEC BR/WA IF PFRMD Sigmoidoscopy TONSILLECTOMY PRIMARY/SECONDARY Tonsillectomy ALLERGIES Amoxicillin, Lisinopril, and Edhrtsm-Nda-Twn Reductase Inhibitors MEDICATIONS iv contrast (will be provided with radiology test) CT Urogram WO/W Inject, intravenously, once for 1 dose.No IV access, insert saline lock prior to the beginning of sedation, infusion, injection of imaging exam. Discontinue saline lock post exam. If Pt. has a central line or IVAD, may access for administration according to line specific nursing protocol. Once exam is complete flush line and de-access according to line specific nursing protocol in the CT contrast administration guidelines link. spironolactone (ALDACTONE) 25 mg tablet Take 1 tablet by mouth once daily. FLUoxetine (PROZAC) 20 mg capsule Take 1 capsule by mouth once daily. amLODIPine (NORVASC) 5 mg tablet Take 1 tablet by mouth once daily. folic acid 1 mg tablet Take 1 tablet by mouth once daily. losartan (COZAAR) 100 mg tablet Take 1 tablet by mouth once daily. enzalutamide (XTANDI) 40 mg tablet Take 2 tablets (80 mg) by mouth once daily. Calcium Citrate 250 mg calcium tab Take 1 tablet by mouth once daily. Cholecalciferol, Vitamin D3, (VITAMIN D) 25 mcg (1,000 unit) cap Take 1 capsule by mouth once daily. aspirin (CHILDRENS ASPIRIN) 81 mg chewable tablet Take 1 tablet by mouth once daily. Vgrchabpzeetc-Mulggiwm-Uynrub (CENTRUM SILVER) tab Take 1 tablet by mouth once daily. FAMILY HISTORY Problem Relation Age of Onset Heart Mother Heart Father Ischemic Heart Disease Father Hypertension Brother Lipids Brother None No Family History No lung disease. Social History Tobacco Use Smoking status: Former Current packs/day: 0.00 Average packs/day: 1 pack/day for 12.0 years (12.0 ttl pk-yrs) Types: Cigarettes Start date: 1952 Quit date: 09/27/1964 Years since quittin.6 Smokeless tobacco: Never Tobacco comments: ETS: Father smoked in childhood home, then quit. Spouse non-smoker. Vaping Use Vaping status: Never Used Substance Use Topics Alcohol use: Not Curren (more content not included)... [facility] 04-23-2025 History of Present illness Narrative Program_ID:[id number] Access Code: [email or web address] URL: [email or web address] Date: 04-23-2025 Prepared By: Thanh Garcia Program Notes Exercises - Sit to Stand - 1 x daily - 7 x weekly - 4 sets - 10 reps - Supine Active Straight Leg Raise - 1 x daily - 7 x weekly - 4 sets - 10 reps - Supine Active Straight Leg Raise - 1 x daily - 7 x weekly - 4 sets - 10 reps - Standing Romberg to 1/2 Tandem Stance - 1 x daily - 7 x weekly - 4 sets - reps - Standing Romberg to 1/2 Tandem Stance - 1 x daily - 7 x weekly - 4 sets - reps - Forward Step-Up With Dumbbells - 1 x daily - 7 x weekly - 4 sets - 10 reps - Forward Step-Up With Dumbbells - 1 x daily - 7 x weekly - 4 sets - 10 reps - Seated Isometric Hip Adduction with Ball - 1 x daily - 7 x weekly - 4 sets - 10 reps Images from the original note were not included. Episode Visit Count: 2 Therapist That Will Accept/Oversee The Plan Of Care: Thnah Garcia PT Start of Care Date: 03/22/25 Onset Date: 12/20/24 Plan of Care Certification Date: 03/22/25 Next Certification Due Date: 07/31/25 Patient Identified by Name and Date of : Yes REHABILITATION AND SPORTS THERAPY PHYSICAL THERAPY DISCONTINUANCE OF CARE PLAN OF CARE UPDATE: Assessment: Isaias Slaughter is discontinued from Physical Therapy services due to goal achievement and maximal benefit.. Patient was seen for 2 visits from Start of Care Date: 03/22/25 to 04/23/2025 and treatment included: Therapeutic exercise and Neuromuscular re-education. Goals for Episode of Care: established 03/22/25 Patient will report no falls. Pt will demo safe use of a SPC in 4 weeks or less Improve score on 30 Second Chair Stand to 11 repetitions to reflect decreased fall risk. Increase strength of BLE to 5/5 in order to improved pt stability with ADL's. Patient Goals: Reduce his fall risk SUBJECTIVE: Pt seems to be doing alright. The chair exercise is the toughest. The legs feel strong. He does have other exercises that he does. His BP has been good. Patient Goals: Reduce his fall risk Functional Limitations: nothing Prior Level of Function: Independent without limitations Intake Information: Prescription present Previous Treatment: Physical Therapy Falls Interview: Fall with injury in the last year Pain: Pain Pain Level: 0 PROMIS Scales 07/20/2023 Higher is Better Phys Func - T Score 39 (moderate dysfunction) Phys Func - Percentile 14 Self-Eff Symptom - T Score 43 (Average) Self-Eff Symptom - Percentile 24 Proxy-reported T-Score and Percentile Interpretation T-scores: mean of general population = 50. 5 points is clinically meaningfully difference Percentiles provide an indication of how the patient's score ranks in relation to the general population. Higher percentile rankings indicate better function/quality of life. 50th percentile is the average of the general population and indicates half of respondents had a worse score. OBJECTIVE MEASURES WITH LEVEL OF FUNCTION: LE Strength R LE Strength: Grossly 5/5 L LE Strength: Grossly 5/5 Mobility Sit To Stand: Independent Stand To Sit: Independent Gait Gait: Independent Gait Distance (feet): 20 Gait Device: None Gait Deviations: General Deviations Gait Observation: WNL Functional Performance Test Results Assistive Device: None 30 Second Chair Stand Test: 13 reps Timed Up and Go (sec): 10.9 sec 4 Stage Balance Test Narrow base of support (sec): 30 sec Semi-tandem base of support (sec): 30 sec Single leg stance - right (sec): 7 sec Single leg stance - left (sec): 5 sec Vitals BP: 130/93 TREATMENT: Therapeutic Exercise: 1: All objective measures taken 2: STS holding 2# 2 x 10 3: Seated hip add iso 2 x 10 Skilled Intervention: Patient was educated in proper exercise technique and purpose for exercises. Correct performance of therapeutic exercises was facilitated with verbal and visual cuing. Billing Therapeutic Exercise Treatment Minutes: 39 Skilled Treatment Time Minutes (timed and untimed codes): 39 Total Session Time (minutes): 39 Session Start Time : 1046 Session Stop Time : 1125 Thanh Garcia PT documented in this encounter [facility] 04-23-2025 Note HNO ID: [id number] Author: THANH GARCIA PT Service: ? Author Type: Physical Therapist Type: Progress Notes Filed: 04/23/2025 11:26 Note Text: Episode Visit Count: 2 Therapist That Will Accept/Oversee The Plan Of Care: Thanh Garcia PT Start of Care Date: 03/22/25 Onset Date: 12/20/24 Plan of Care Certification Date: 03/22/25 Next Certification Due Date: 04/26/25 Patient Identified by Name and Date of : Yes REHABILITATION AND SPORTS THERAPY PHYSICAL THERAPY DISCONTINUANCE OF CARE PLAN OF CARE UPDATE: Assessment: Isaias Slaughter is discontinued from Physical Therapy services due to goal achievement and maximal benefit.. Patient was seen for 2 visits from Start of Care Date: 03/22/25 to 04/23/2025 and treatment included: Therapeutic exercise and Neuromuscular re-education. Goals for Episode of Care: established 03/22/25 Patient will report no falls. Pt will demo safe use of a SPC in 4 weeks or less Improve score on 30 Second Chair Stand to 11 repetitions to reflect decreased fall risk. Increase strength of BLE to 5/5 in order to improved pt stability with ADL's. Patient Goals: Reduce his fall risk SUBJECTIVE: Pt seems to be doing alright. The chair exercise is the toughest. The legs feel strong. He does have other exercises that he does. His BP has been good. Patient Goals: Reduce his fall risk Functional Limitations: nothing Prior Level of Function: Independent without limitations Intake Information: Prescription present Previous Treatment: Physical Therapy Falls Interview: Fall with injury in the last year Pain: Pain Pain Level: 0 PROMIS Scales 07/20/2023 Higher is Better Phys Func - T Score 39 (moderate dysfunction) Phys Func - Percentile 14 Self-Eff Symptom - T Score 43 (Average) Self-Eff Symptom - Percentile 24 Proxy-reported T-Score and Percentile Interpretation T-scores: mean of general population = 50. 5 points is clinically meaningfully difference Percentiles provide an indication of how the patient's score ranks in relation to the general population. Higher percentile rankings indicate better function/quality of life. 50th percentile is the average of the general population and indicates half of respondents had a worse score. OBJECTIVE MEASURES WITH LEVEL OF FUNCTION: LE Strength R LE Strength: Grossly 5/5 L LE Strength: Grossly 5/5 Mobility Sit To Stand: Independent Stand To Sit: Independent Gait Gait: Independent Gait Distance (feet): 20 Gait Device: None Gait Deviations: General Deviations Gait Observation: WNL Functional Performance Test Results Assistive Device: None 30 Second Chair Stand Test: 13 reps Timed Up and Go (sec): 10.9 sec 4 Stage Balance Test Narrow base of support (sec): 30 sec Semi-tandem base of support (sec): 30 sec Single leg stance - right (sec): 7 sec Single leg stance - left (sec): 5 sec Vitals BP: 130/93 TREATMENT: Therapeutic Exercise: 1: All objective measures taken 2: STS holding 2# 2 x 10 3: Seated hip add iso 2 x 10 Skilled Intervention: Patient was educated in proper exercise technique and purpose for exercises. Correct performance of therapeutic exercises was facilitated with verbal and visual cuing. Billing Therapeutic Exercise Treatment Minutes: 39 Skilled Treatment Time Minutes (timed and untimed codes): 39 Total Session Time (minutes): 39 Session Start Time : 1046 Session Stop Time : 1125 Thanh Garcia PT [facility] 04-05-2025 Note HNO ID: [id number] Author: WINTER HAWKINS LPN Service: ? Author Type: LICENSED NURSE Type: Progress Notes Filed: 04/05/2025 10:15 Note Text: Patient here for injection of Eligard. Given SQ in right upper superior buttocks. Patient tolerated well. For all other information regarding today, see today's OV note with Dr Sylvester. Winter Hawkins LPN [facility] 04-05-2025 History of Present illness Narrative Patient here for injection of Eligard. Given SQ in right upper superior buttocks. Patient tolerated well. For all other information regarding today, see today's OV note with Dr Sylvester. Winter Hawkins LPN documented in this encounter [facility] 04-05-2025 Note HNO ID: [id number] Author: ELLIOTT SYLVESTER MD Service: ? 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 Oncological history: Lung cancer--He underwent a right lower lobectomy along with mediastinal lymph node dissection. Surgery was performed on 02/21/14. 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 The tumor was 5 x 4.2 x 1.8 cm in size. There was no evidence of any pleural involvement. No evidence of any lymphovascular invasion identified. There was no evidence of any perineural invasion. The patient had no evidence of any mediastinal lymph node metastasis by this tumor. The right 10R was positive for metastasis the the phenotyping was different from the lung cancer. The lymph node showed a staining pattern consistent with adenocarcinoma of prostatic primary. This was positive for PSA, positive for prostate-specific membrane antigen as well as the prostatic acid phosphatase. The adenocarcinoma was diffusely positive for synaptophysin and focally positive for chromogranin highlighting a neuroendocrine differentiating pattern. Prostate cancer; history of prostate cancer ( Lillian score 6- 7 ). This was organ confined and was treated with external beam radiation. The patient had a PSA level checked which was reported at 0.28. 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 Complained of severe muscle aches and pain, fatigue and weight loss after treatment started. Bladder cancer; history of multiple superficial bladder cancers. These have been removed through a TURB. Cystoscopy recently was positive for low-grade papillary carcinoma. Previous treatment: Lupron/abiraterone/prednisone. Zytiga became cost prohibitive. Current treatment: Lupron/ Xtandi 80 mg daily TURBT 01/29/2023-- -Extensive, endoscopically unresectable papillary tumor contiguously extending from right mid-ureter to UVJ, circumferential around ureter. -Approximately 10 superficial low grade appearing bladder tumors up to 1cm in size and a 2cm partially obstructing papillary tumor at the right ureteral orifice -1mm bulbar urethral lesions, possible tumor. -Severely dilated, torturous right ureter on retrograde pyelogram with severe hydro Pathology: Bladder, transurethral resection of tumor: -Noninvasive papillary urothelial carcinoma, predominantly low-grade with focal high-grade features. -Muscularis propria is not present for evaluation. Presents for ongoing oncologic management. 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 Increased aspirin 81 mg twice daily. No unusual bleeding or unexplained bruising. Taking 80 mg enzalutamide since May 2023 due to feeling poorly on 160 mg. 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 RECOMMENDATION/PLAN: 1. Continue xtandi 80 mg daily pending PSA 2. Lupron(eligard) today, every 3 months 3. See back 3 months, chest x ray at that visit Written and verbal health teaching given to patient, patient verbalizes understanding and agrees with treatment plan. 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 History of basal cell carcinoma HLD (hyperlipidemia) Hx of cancer of lung Hydronephrosis with ureteral stricture, not elsewhere classified HYPERTENSION NOS 08/03/2006 MALIGN NEOPL PROSTATE 03/05/2006 Malignant neoplasm of bladder, part unspecified 09/27/2001 bladder cancer 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 [facility] 04-05-2025 History of Present illness Narrative (Elements copied from my note dated July 27, 2024, have been reviewed and updated where appropriate, and all reflect current assessment and medical decision making from today's encounter, April 05, 2025) HISTORY OF PRESENT ILLNESS: Isaias Slaughter is a 88 year old male with history of lung cancer, bladder cancer and 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 Oncological history: Lung cancer--He underwent a right lower lobectomy along with mediastinal lymph node dissection. Surgery was performed on 02/21/14. 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 The tumor was 5 x 4.2 x 1.8 cm in size. There was no evidence of any pleural involvement. No evidence of any lymphovascular invasion identified. There was no evidence of any perineural invasion. The patient had no evidence of any mediastinal lymph node metastasis by this tumor. The right 10R was positive for metastasis the the phenotyping was different from the lung cancer. The lymph node showed a staining pattern consistent with adenocarcinoma of prostatic primary. This was positive for PSA, positive for prostate-specific membrane antigen as well as the prostatic acid phosphatase. The adenocarcinoma was diffusely positive for synaptophysin and focally positive for chromogranin highlighting a neuroendocrine differentiating pattern. Prostate cancer; history of prostate cancer ( Lillian score 6- 7 ). This was organ confined and was treated with external beam radiation. The patient had a PSA level checked which was reported at 0.28. 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 Complained of severe muscle aches and pain, fatigue and weight loss after treatment started. Bladder cancer; history of multiple superficial bladder cancers. These have been removed through a TURB. Cystoscopy recently was positive for low-grade papillary carcinoma. Previous treatment: Lupron/abiraterone/prednisone. Zytiga became cost prohibitive. Current treatment: Lupron/ Xtandi 80 mg daily TURBT 01/29/2023-- -Extensive, endoscopically unresectable papillary tumor contiguously extending from right mid-ureter to UVJ, circumferential around ureter. -Approximately 10 superficial low grade appearing bladder tumors up to 1cm in size and a 2cm partially obstructing papillary tumor at the right ureteral orifice -1mm bulbar urethral lesions, possible tumor. -Severely dilated, torturous right ureter on retrograde pyelogram with severe hydro Pathology: Bladder, transurethral resection of tumor: -Noninvasive papillary urothelial carcinoma, predominantly low-grade with focal high-grade features. -Muscularis propria is not present for evaluation. Presents for ongoing oncologic management. 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 Increased aspirin 81 mg twice daily. No unusual bleeding or unexplained bruising. Taking 80 mg enzalutamide since May 2023 due to feeling poorly on 160 mg. 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 RECOMMENDATION/PLAN: 1. Continue xtandi 80 mg daily pending PSA 2. Lupron(eligard) today, every 3 months 3. See back 3 months, chest x ray at that visit Written and verbal health teaching given to patient, patient verbalizes understanding and agrees with treatment plan. 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 History of basal cell carcinoma HLD (hyperlipidemia) Hx of cancer of lung Hydronephrosis with ureteral stricture, not elsewhere classified HYPERTENSION NOS 08/03/2006 MALIGN NEOPL PROSTATE 03/05/2006 Malignant neoplasm of bladder, part unspecified 09/27/2001 bladder cancer 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 Malignant 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 (HCC) Malignant neoplasm of urinary bladder (HCC) Other and unspecified hyperlipidemia Hyperlipidemia PERS HX SKIN MALIGNANCY NEC 11/08/2006 Prediabetes Prostate cancer (HCC) Stage 3a chronic kidney disease (CKD) (HCC) 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, 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PAST SURGICAL HISTORY Procedure Laterality Date ANES TRANSURETHRAL RESECTION OF BLADDER TUMOR 2013 ANES TRANSURETHRAL RESECTION OF BLADDER TUMOR 2011 APPENDECTOMY 1946 BLADDER BIOSPY FULGUR 2018 CARDIAC 2013 stent to RCA CATARACT EXTRACTION W/ INTRAOCULAR LENS IMPLANT HX Right COLON SURGERY HX 2020 COLONOSCOPY FLX DX W/COLLJ SPEC WHEN PFRMD 08/25/2012 Colonoscopy report 5 years COLSC FLX W/RMVL OF TUMOR POLYP LESION SNARE TQ 12/30/2006 CYSTOSCOPY,+URETEROSCOPY Right 03/2021 CYSTOURETHROSCOPY,FULGUR .5-2CM LESN 01/2021 CYSTOURETHROSCOPY,FULGUR .5-2CM LESN 2011 EGD REMOVAL TUMOR POLYP/OTHER LESION SNARE TECH 02/2022 done at [facility] PAST SURGICAL HISTORY OF 2001 TURB BLADDER CANCER PAST SURGICAL HISTORY OF 2013 cardiac stent x1 RMVL LUNG OTHER THAN PNEUMONECTOMY 1 LOBE LOBECT 02/21/2014 Mediastinoscopy, right posterolateral thoracotomy, right lower lobectomy, lymphadenectomy, rib blocks RPR 1ST INGUN HRNA AGE 6 YRS/> REDUCIBLE Left 03/19/2017 SIGMOIDOSCOPY FLX DX W/COLLJ SPEC BR/WA IF PFRMD Sigmoidoscopy TONSILLECTOMY PRIMARY/SECONDARY <AGE 12 Tonsillectomy FAMILY HISTORY Problem Relation Age of Onset Heart Mother Heart Father Ischemic Heart Disease Father Hypertension Brother Lipids Brother None No Family History No lung disease. Social History Tobacco Use Smoking status: Former Current packs/day: 0.00 Average packs/day: 1 pack/day for 12.0 years (12.0 ttl pk-yrs) Types: Cigarettes Start date: 1952 Quit date: 09/27/1964 Years since quittin.5 Smokeless tobacco: Never Tobacco comments: ETS: Father smoked in childhood home, then quit. Spouse non-smoker. Vaping Use Vaping status: Never Used Substance Use Topics Alcohol use: Not Currently Drug use: Never ALLERGIES: ALLERGIES Allergen Reactions Amoxicillin Diarrhea, GI Upset Patient cannot tolerate this medication Lisinopril Cough Rjptzzj-Obp-Itm Red* Other: See Comments Patient states he will not take statins because of what they did to his . CURRENT OUTPATIENT MEDICATIONS: spironolactone (ALDACTONE) 25 mg tablet Take 1 tablet by mouth once daily. FLUoxetine (PROZAC) 20 mg capsule Take 1 capsule by mouth once daily. amLODIPine (NORVASC) 5 mg tablet Take 1 tablet by mouth once daily. folic acid 1 mg tablet Take 1 tablet by mouth once daily. losartan (COZAAR) 100 mg tablet Take 1 tablet by mouth once daily. enzalutamide (XTANDI) 40 mg tablet Take 2 tablets (80 mg) by mouth once daily. Calcium Citrate 250 mg calcium tab Take 1 tablet by mouth once daily. Cholecalciferol, Vitamin D3, (VITAMIN D) 25 mcg (1,000 unit) cap Take 1 capsule by mouth once daily. aspirin (CHILDRENS ASPIRIN) 81 mg chewable tablet Take 1 tablet by mouth once daily. Rvidwadujbjtn-Immgyoli-Oyskdo (CENTRUM SILVER) tab Take 1 tablet by mouth once daily. iv contrast (will be provided with radiology test) CT Urogram WO/W Inject, intravenously, once for 1 dose.No IV access, insert saline lock prior to the beginning of sedation, infusion, injection of imaging exam. Discontinue saline lock post exam. If Pt. has a central line or IVAD, may access for administration according to line specific nursing protocol. Once exam is complete flush line and de-access according to line specific nursing protocol in the CT contrast administration guidelines link. REVIEW OF SYSTEMS: GENERAL: No fever, night sweats, weight loss or malaise. All other reviewed and negative other than HPI. PHYSICAL EXAMINATION: VITAL SIGNS: BP 146/77 Pulse 65 Temp (Src) 97.2 (Temporal) Ht 5' 5.354 (1.66m) Wt 160 lb 8 oz (72.8kg) SpO2 96% BMI 26.42 kg/(m^2). GENERAL APPEARANCE: Well appearing, in no acute distress, alert and oriented x3, well-hydrated, well nourished. I spent a total of 30 minutes on the date of the service which included preparing to see the patient, [id number] patient care, completing clinical documentation, obtaining and/or reviewing separately obtained history, counseling and educating the patient/family/caregiver, ordering medications, tests, or procedures, independently interpreting results (not separately reported), and communicating results to the patient/family/caregiver. Electronically Signed: Elliott Sylvester MD April 05, 2025 documented in this encounter [facility] 03-22-2025 History of Present illness Narrative Program_ID:[id number] Access Code: [email or web address] URL: [email or web address] Date: 03-22-2025 Prepared By: Thanh Garcia Program Notes Exercises - Sit to Stand - 1 x daily - 7 x weekly - 4 sets - 10 reps - Supine Active Straight Leg Raise - 1 x daily - 7 x weekly - 4 sets - 10 reps - Supine Active Straight Leg Raise - 1 x daily - 7 x weekly - 4 sets - 10 reps - Standing Romberg to 1/2 Tandem Stance - 1 x daily - 7 x weekly - 4 sets - reps - Standing Romberg to 1/2 Tandem Stance - 1 x daily - 7 x weekly - 4 sets - reps Images from the original note were not included. Episode Visit Count: 1 Therapist That Will Accept/Oversee The Plan Of Care: Thanh Garcia PT Start of Care Date: 03/22/25 Onset Date: 12/20/24 Plan of Care Certification Date: 03/22/25 Next Certification Due Date: 04/26/25 Patient Identified by Name and Date of : Yes REHABILITATION AND SPORTS THERAPY PHYSICAL THERAPY EVALUATION PLAN OF CARE: Assessment: Isaias Slaughter presents with chief complaint of balance issues that interferes with walking . The patient presents with impairments in balance, independence in exercise, and overall function. Patient did not complete the PROMIS (Patient Reported Outcome Measures Information System). Prognosis for therapy is Good due to: current objective clinical presentation . The patient will benefit from skilled therapy services to meet the goals established for this plan of care as noted below. Goals for Episode of Care: established 03/22/25 Patient will report no falls. Pt will demo safe use of a SPC in 4 weeks or less Improve score on 30 Second Chair Stand to 11 repetitions to reflect decreased fall risk. Increase strength of BLE to 5/5 in order to improved pt stability with ADL's. Patient Goals: Reduce his fall risk Time Frame for Goals and Treatment : 04/19/25 Planned Interventions, Frequency, and Duration: Current Frequency: 1 visit Duration: 4 weeks Total Number of Visits Planned: 1 Planned Treatment Interventions: Therapeutic exercise (25834), Neuromuscular re-education (79907), Manual therapy (47023), Therapeutic activities (11450), Self-[place] [facility] [place] management (52998), Gait Training (18946), Patient/Family/Caregiver Education PLAN FOR NEXT VISIT: Re-assessment. Progress LE strengthening exercises Patient demonstrates good understanding of plan of care and treatment. The above goals and plan of care were discussed and agreed upon by patient/family. SUBJECTIVE: Pt hopeful to have his BP taken. Pt has a cane, but he likes to walk without because he just feels he walks better without it. No falls in the past year. Pt sleeps upstairs and he has 13 steps in the house. Pt marches at home. He works out with 2 pound weights. Patient Goals: Reduce his fall risk Functional Limitations: walking Prior Level of Function: Independent without limitations Home Environment Equipment Owned: Cane Intake Information: Prescription present Previous Treatment: Physical Therapy Falls History # of falls in past year: 0 # of falls resulting in an injury in past year: 0 Pain: Pain Pain Level: 0 PROMIS Scales 07/20/2023 Higher is Better Phys Func - T Score 39 (moderate dysfunction) Phys Func - Percentile 14 Self-Eff Symptom - T Score 43 (Average) Self-Eff Symptom - Percentile 24 Proxy-reported T-scores: mean of general population = 50. 5 points is clinically meaningfully difference Percentiles provide an indication of how the patient's score ranks in relation to the general population. Higher percentile rankings indicate better function/quality of life. 50th percentile is the average of the general population and indicates half of respondents had a worse score. OBJECTIVE MEASURES WITH LEVEL OF FUNCTION: Posture / Alignment Posture: Forward head, Increased thoracic kyphosis LE Strength R LE Strength: Grossly 4+/5 L LE Strength: Grossly 4+/5 Mobility Sit To Stand: Independent Stand To Sit: Independent Gait Gait: Independent Gait Distance (feet): 20 Gait Device: None Gait Deviations: General Deviations General Deviations/Observations: Janki decreased Functional Performance Test Results Assistive Device: None 30 Second Chair Stand Test: 7 reps Timed Up and Go (sec): 16.7 sec 4 Stage Balance Test Narrow base of support (sec): 30 sec Semi-tandem base of support (sec): 15 sec Single leg stance - right (sec): 3 sec Single leg stance - left (sec): 3 sec Vitals BP: 132/75 (LUE and 138/73) Education: Education Learning Preferences: Demonstration, Explanation, Performance, Printed Materials Barriers: None Learning/educational needs: Home exercise program, Plan of Care, Changes in Plan of Care Education Provided: Yes, see treatment interventions for education provided Education Provided To: Patient Education Mode/Type: Demonstration, Explanation/Discussion, Literature/Printed Materials, Performance Response to Education/Teach Back: States/Identifies, Return Demonstration TREATMENT: PT Treatment Interventions: Therapeutic Exercise, Neuromuscular Re-Education, Gait Training Evaluation Therapeutic Exercise: 1: Discussed exam findings, purpose of the HEP and the HEP handout was provided to the pt. HEP discussed in detail with how to safely and properly perform each therapeutic exercise. 2: STS x 10 3: Supine SLr RLE x 10 then LLE x 10 Skilled Intervention: Patient was educated in proper exercise technique and purpose for exercises. Provided written instruction for home exercise program to facilitate proper performance and compliance. Correct performance of therapeutic exercises was facilitated with verbal and visual cuing. Billing * Evaluation Low Complexity: 1 Unit Therapeutic Exercise Treatment Minutes: 15 Neuromuscular Re-Education Treatment Minutes: 2 Gait Training Treatment Minutes: 7 Skilled Treatment Time Minutes (timed and untimed codes): 47 Total Session Time (minutes): 47 Session Start Time : 904 Session Stop Time : 951 Thanh Garcia PT documented in this encounter [facility] 03-22-2025 Note HNO ID: [id number] Author: THANH GARCIA PT Service: ? Author Type: Physical Therapist Type: Progress Notes Filed: 03/22/2025 11:17 Note Text: Episode Visit Count: 1 Therapist That Will Accept/Oversee The Plan Of Care: Thanh Garcia PT Start of Care Date: 03/22/25 Onset Date: 12/20/24 Plan of Care Certification Date: 03/22/25 Next Certification Due Date: 04/26/25 Patient Identified by Name and Date of : Yes REHABILITATION AND SPORTS THERAPY PHYSICAL THERAPY EVALUATION PLAN OF CARE: Assessment: Isaias Slaughter presents with chief complaint of balance issues that interferes with walking . The patient presents with impairments in balance, independence in exercise, and overall function. Patient did not complete the PROMIS? (Patient Reported Outcome Measures Information System). Prognosis for therapy is Good due to: current objective clinical presentation . The patient will benefit from skilled therapy services to meet the goals established for this plan of care as noted below. Goals for Episode of Care: established 03/22/25 Patient will report no falls. Pt will demo safe use of a SPC in 4 weeks or less Improve score on 30 Second Chair Stand to 11 repetitions to reflect decreased fall risk. Increase strength of BLE to 5/5 in order to improved pt stability with ADL's. Patient Goals: Reduce his fall risk Time Frame for Goals and Treatment : 04/19/25 Planned Interventions, Frequency, and Duration: Current Frequency: 1 visit Duration: 4 weeks Total Number of Visits Planned: 1 Planned Treatment Interventions: Therapeutic exercise (12819), Neuromuscular re-education (21131), Manual therapy (87710), Therapeutic activities (35850), Self-[place] [facility] [place] management (36461), Gait Training (11062), Patient/Family/Caregiver Education PLAN FOR NEXT VISIT: Re-assessment. Progress LE strengthening exercises Patient demonstrates good understanding of plan of care and treatment. The above goals and plan of care were discussed and agreed upon by patient/family. SUBJECTIVE: Pt hopeful to have his BP taken. Pt has a cane, but he likes to walk without because he just feels he walks better without it. No falls in the past year. Pt sleeps upstairs and he has 13 steps in the house. Pt marches at home. He works out with 2 pound weights. Patient Goals: Reduce his fall risk Functional Limitations: walking Prior Level of Function: Independent without limitations Home Environment Equipment Owned: Cane Intake Information: Prescription present Previous Treatment: Physical Therapy Falls History # of falls in past year: 0 # of falls resulting in an injury in past year: 0 Pain: Pain Pain Level: 0 PROMIS Scales 07/20/2023 Higher is Better Phys Func - T Score 39 (moderate dysfunction) Phys Func - Percentile 14 Self-Eff Symptom - T Score 43 (Average) Self-Eff Symptom - Percentile 24 Proxy-reported T-scores: mean of general population = 50. 5 points is clinically meaningfully difference Percentiles provide an indication of how the patient's score ranks in relation to the general population. Higher percentile rankings indicate better function/quality of life. 50th percentile is the average of the general population and indicates half of respondents had a worse score. OBJECTIVE MEASURES WITH LEVEL OF FUNCTION: Posture / Alignment Posture: Forward head, Increased thoracic kyphosis LE Strength R LE Strength: Grossly 4+/5 L LE Strength: Grossly 4+/5 Mobility Sit To Stand: Independent Stand To Sit: Independent Gait Gait: Independent Gait Distance (feet): 20 Gait Device: None Gait Deviations: General Deviations General Deviations/Observations: Janki decreased Functional Performance Test Results Assistive Device: None 30 Second Chair Stand Test: 7 reps Timed Up and Go (sec): 16.7 sec 4 Stage Balance Test Narrow base of support (sec): 30 sec Semi-tandem base of support (sec): 15 sec Single leg stance - right (sec): 3 sec Single leg stance - left (sec): 3 sec Vitals BP: 132/75 (LUE and 138/73) Education: Education Learning Preferences: Demonstration, Explanation, Performance, Printed Materials Barriers: None Learning/educational needs: Home exercise program, Plan of Care, Changes in Plan of Care Education Provided: Yes, see treatment interventions for education provided Education Provided To: Patient Education Mode/Type: Demonstration, Explanation/Discussion, Literature/Printed Materials, Performance Response to Education/Teach Back: States/Identifies, Return Demonstration TREATMENT: PT Treatment Interventions: Therapeutic Exercise, Neuromuscular Re-Education, Gait Training Evaluation Therapeutic Exercise: 1: Discussed exam findings, purpose of the HEP and the HEP handout was provided to the pt. HEP discussed in detail with how to safely and properly perform each therapeutic exercise. 2: STS x 10 3: Supine SLr RLE x 10 then L (more content not included)... [facility] 03-07-2025 Note HNO ID: [id number] Author: KYA HINTON MD Service: ? Author Type: Physician Type: Progress Notes Filed: 03/07/2025 12:39 Note Text: Reason for Visit Follow up HPI Isaias Slaughter is a 89-year-old male with a history of HTN, prostate cancer, and lung cancer, presenting for follow-up. Isaias reports improvement in blood pressure control since starting spironolactone last week. He denies experiencing dizziness, including when transitioning from a sitting to a standing position. He is also taking losartan and Norvasc for blood pressure management. He is unsure if he is currently taking Prozac, as his son manages his medications. Isaias reports balance issues, stating that his balance is not like it used to be. He uses a cane but feels he walks better without it. He walks 20 minutes daily outside and attends basketball games with his son. He occasionally feels like he is going to fall but has not experienced any falls. He denies any feelings of disequilibrium or unsteadiness in direction. Isaias drinks 4 eight-ounce glasses of water daily and half a bottle of Gatorade, noting that he used to drink a full bottle but reduced the amount due to its sugar content. He reports that a water pill has helped reduce fluid retention. He recently got new glasses and is scheduled to receive new hearing aids next week. He also mentions that his brother recently underwent open heart surgery and is currently in intensive care. Social History Tobacco Use Smoking status: Former Current packs/day: 0.00 Average packs/day: 1 pack/day for 12.0 years (12.0 ttl pk-yrs) Types: Cigarettes Start date: 1952 Quit date: 09/27/1964 Years since quittin.4 Smokeless tobacco: Never Tobacco comments: ETS: Father smoked in childhood home, then quit. Spouse non-smoker. Vaping Use Vaping status: Never Used Substance Use Topics Alcohol use: Not Currently Drug use: Never Past medical history, appointments, medications, allergies reviewed. Pertinent Lab/Diagnostic Studies are reviewed and discussed today Current Outpatient Medications: iv contrast (will be provided with radiology test) spironolactone (ALDACTONE) 25 mg tablet FLUoxetine (PROZAC) 20 mg capsule amLODIPine (NORVASC) 5 mg tablet folic acid 1 mg tablet losartan (COZAAR) 100 mg tablet enzalutamide (XTANDI) 40 mg tablet Calcium Citrate 250 mg calcium tab Cholecalciferol, Vitamin D3, (VITAMIN D) 25 mcg (1,000 unit) cap aspirin (CHILDRENS ASPIRIN) 81 mg chewable tablet Truvfezbqnjkm-Jnhazmxr-Jjogxb (CENTRUM SILVER) tab Health Maintenance Depression Screening Anxiety Screening DTaP,Tdap,Td Vaccine(1 - Tdap) Shingrix Vaccine(1 of 2) RSV Vaccine(1 - 1-dose 75+ series) Advance Directive Discussion Medicare Advantage Annual Wellness Visit@ Review Of Systems Ears/Nose/Mouth/Throat: (+) hearing loss Neurological: (+) unsteady gait, (-) dizziness, (-) lightheadedness Physical Exam BP 134/80 Pulse 74 Resp 12 Wt 74.4 kg (164 lb) SpO2 96% BMI 26.47 kg/m? GENERAL: NAD, alert and oriented SKIN: unremarkable, no rash or skin lesions. HEAD: normocephalic EYES: PERRLA, EOMI, conjunctiva clear EARS: external ears normal, canals clear, TM's normal. NOSE/SINUSES: Nares normal. Septum midline. OROPHARYNX: lips, mucosa, and tongue normal, good dentition. No oral lesions noted. NECK: Supple, no lymphadenopathy, normal thyroid, no carotid bruits. LUNGS: Clear to auscultation bilaterally, no wheezes/rhonchi/rales. HEART: Regular rate and rhythm, no murmurs. No ectopy. EXTREMITIES: Normal, No deformities, No skin discoloration, No edema. NEURO: Awake, alert and oriented x3, cranial nerves II-XII grossly intact, normal gait, no involuntary motions Assessment and Plan 1. Ambulatory dysfunction Balance disorder Experiencing unsteadiness and fear of falling, though no actual falls reported. No dizziness or lightheadedness when rising from a seated position. Uses a cane but reports better ambulation without it. Walks 20 minutes daily. - Referred to physical therapy for gait and balance evaluation and improvement at the [facility] [place] [facility]. 2. Essential hypertension Blood pressure readings are well-controlled with current medication regimen, including spironolactone and Norvasc. No reports of dizziness associated with medication use. Continue current antihypertensive medications. 3. Hyperkalemia Currently taking spironolactone, which can increase potassium levels. Also taking a potassium supplement. - Discontinue potassium supplement. - Ordered blood work to monitor potassium levels in 1 month. 4. Screening for depression Encounter for screening examination for other mental health and behavioral disorders Uncertain if patient is currently taking Prozac; dosage unclear. - Instructed patient to confirm with son whether Prozac is being taken and at what dosage. 5. Pe (more content not included)... [facility] 03-07-2025 History of Present illness Narrative Reason for Visit Follow up HPI Isaias Slaughter is a 89-year-old male with a history of HTN, prostate cancer, and lung cancer, presenting for follow-up. Isaias reports improvement in blood pressure control since starting spironolactone last week. He denies experiencing dizziness, including when transitioning from a sitting to a standing position. He is also taking losartan and Norvasc for blood pressure management. He is unsure if he is currently taking Prozac, as his son manages his medications. Isaias reports balance issues, stating that his balance is not like it used to be. He uses a cane but feels he walks better without it. He walks 20 minutes daily outside and attends basketball games with his son. He occasionally feels like he is going to fall but has not experienced any falls. He denies any feelings of disequilibrium or unsteadiness in direction. Isaias drinks 4 eight-ounce glasses of water daily and half a bottle of Gatorade, noting that he used to drink a full bottle but reduced the amount due to its sugar content. He reports that a water pill has helped reduce fluid retention. He recently got new glasses and is scheduled to receive new hearing aids next week. He also mentions that his brother recently underwent open heart surgery and is currently in intensive care. Social History Tobacco Use Smoking status: Former Current packs/day: 0.00 Average packs/day: 1 pack/day for 12.0 years (12.0 ttl pk-yrs) Types: Cigarettes Start date: 1952 Quit date: 09/27/1964 Years since quittin.4 Smokeless tobacco: Never Tobacco comments: ETS: Father smoked in childhood home, then quit. Spouse non-smoker. Vaping Use Vaping status: Never Used Substance Use Topics Alcohol use: Not Currently Drug use: Never Past medical history, appointments, medications, allergies reviewed. Pertinent Lab/Diagnostic Studies are reviewed and discussed today Current Outpatient Medications: iv contrast (will be provided with radiology test) spironolactone (ALDACTONE) 25 mg tablet FLUoxetine (PROZAC) 20 mg capsule amLODIPine (NORVASC) 5 mg tablet folic acid 1 mg tablet losartan (COZAAR) 100 mg tablet enzalutamide (XTANDI) 40 mg tablet Calcium Citrate 250 mg calcium tab Cholecalciferol, Vitamin D3, (VITAMIN D) 25 mcg (1,000 unit) cap aspirin (CHILDRENS ASPIRIN) 81 mg chewable tablet Dzgdnvecxobgh-Ivpdcpad-Bgidlp (CENTRUM SILVER) tab Health Maintenance Depression Screening Anxiety Screening DTaP,Tdap,Td Vaccine(1 - Tdap) Shingrix Vaccine(1 of 2) RSV Vaccine(1 - 1-dose 75+ series) Advance Directive Discussion Medicare Advantage Annual Wellness Visit@ Review Of Systems Ears/Nose/Mouth/Throat: (+) hearing loss Neurological: (+) unsteady gait, (-) dizziness, (-) lightheadedness Physical Exam BP 134/80 Pulse 74 Resp 12 Wt 74.4 kg (164 lb) SpO2 96% BMI 26.47 kg/m GENERAL: NAD, alert and oriented SKIN: unremarkable, no rash or skin lesions. HEAD: normocephalic EYES: PERRLA, EOMI, conjunctiva clear EARS: external ears normal, canals clear, TM's normal. NOSE/SINUSES: Nares normal. Septum midline. OROPHARYNX: lips, mucosa, and tongue normal, good dentition. No oral lesions noted. NECK: Supple, no lymphadenopathy, normal thyroid, no carotid bruits. LUNGS: Clear to auscultation bilaterally, no wheezes/rhonchi/rales. HEART: Regular rate and rhythm, no murmurs. No ectopy. EXTREMITIES: Normal, No deformities, No skin discoloration, No edema. NEURO: Awake, alert and oriented x3, cranial nerves II-XII grossly intact, normal gait, no involuntary motions Assessment and Plan 1. Ambulatory dysfunction Balance disorder Experiencing unsteadiness and fear of falling, though no actual falls reported. No dizziness or lightheadedness when rising from a seated position. Uses a cane but reports better ambulation without it. Walks 20 minutes daily. - Referred to physical therapy for gait and balance evaluation and improvement at the [facility]. 2. Essential hypertension Blood pressure readings are well-controlled with current medication regimen, including spironolactone and Norvasc. No reports of dizziness associated with medication use. Continue current antihypertensive medications. 3. Hyperkalemia Currently taking spironolactone, which can increase potassium levels. Also taking a potassium supplement. - Discontinue potassium supplement. - Ordered blood work to monitor potassium levels in 1 month. 4. Screening for depression Encounter for screening examination for other mental health and behavioral disorders Uncertain if patient is currently taking Prozac; dosage unclear. - Instructed patient to confirm with son whether Prozac is being taken and at what dosage. 5. Personal history of malignant neoplasm of lung History of lung cancer with surgical resection performed. 6. Personal history of prostate cancer Currently taking Xtandi 2 tablets daily for prostate cancer management. Voice recognition software was used to compose this office note. Please excuse any unintended typographical errors. Recording using ambient [employer] software for draft documentation of the visit was discussed with the patient/authorized traveling sales representative; all questions welcomed and answered. Patient/authorized traveling sales representative agreed to proceed Kya Hinton MD documented in this encounter [facility] 03-07-2025 Instructions Kya Hinton MD - 03/07/2025 10:29 AM EDT We discussed your blood pressure: - Your blood pressure is well-controlled, and you are feeling good. Continue taking your current medications, including spironolactone and losartan, as prescribed. - I have discontinued your potassium supplement, as spironolactone increases potassium levels. This will reduce the number of pills you are taking. - Please have blood work done in 1 month to monitor your potassium levels. This will be noted on your after-visit summary. We discussed your balance and walking: - You reported feeling unsteady at times but do not experience dizziness or falls. You are walking 20 minutes daily, which is great. - I recommend physical therapy for gait and balance to help improve your stability. This can be done at the [facility] on [address] [facility], about 1 mile from here. They will work with your schedule to find a convenient time for appointments. We discussed your medications: - Please confirm with your son whether you are currently taking Prozac and, if so, the dosage. Show him this after-visit summary, as I have circled the medication for clarification. - Continue taking Xtandi (2 pills daily) for your prostate cancer as prescribed. Follow-up: - I will see you back in 3 months for a follow-up visit. Please ensure your blood work is completed before then. documented in this encounter [facility] 02-22-2025 Telephone encounter Note Called patient. Unable to leave voicemail due to mailbox full. Gaby Harris LPN [facility] 02-22-2025 Miscellaneous Notes Called patient. Unable to leave voicemail due to mailbox full. Gaby Harris LPN Images from the original note were not included. Juliana Huitron PA-C to [facility] Pool (Selected Message) 02/14/25 6:37 PM Result Note No infection in the urine JENNIFER Quintanilla MT, PA-C BACTERIAL CULTURE, URINE; UA DIP, URINE (POC) Called patient. Phone beeped without ringing. Gaby Harris LPN documented in this encounter [facility] 02-15-2025 Telephone encounter Note Images from the original note were not included. Juliana Huitron PA-C to [facility] Pool (Selected Message) 02/14/25 6:37 PM Result Note No infection in the urine JENNIFER Quintanilla MT, PA-C BACTERIAL CULTURE, URINE; UA DIP, URINE (POC) Called patient. Phone beeped without ringing. Gaby Harris LPN [facility] 02-13-2025 Note HNO ID: [id number] Author: JULIANA HUITRON PA-C Service: ? Author Type: Physician Inspector Floor Sub Assembly Type: Progress Notes Filed: 02/27/2025 17:13 Note Text: COUNT INCLUDES THE [facility] EST PATIENT CLINIC NOTE (M) Some elements copied from his previous note, which have been updated where appropriate, and all reflect current medical decision making from date of this visit. Note was generated by [employer] and edited as appropriate SERVICE DATE: February 27, 2025 NAME: Isaias Slaughter GENDER: male CHIEF COMPLAINT: presenting for evaluation of hematuria. HISTORY OF PRESENT ILLNESS: The patient is an 89-year-old male presenting for evaluation of hematuria. Hematuria: - Gross hematuria onset 7-10 days ago. - Observed blood in urine stream while standing; urine appeared clear a few hours later. - No hematuria observed today. - Denies dysuria. - No known history of nephrolithiasis. LABS: PSA (ng/mL) Date Value 01/11/2025 <0.02 10/19/2024 <0.02 07/27/2024 <0.02 10/14/2021 <0.02 07/22/2021 <0.03 04/21/2021 <0.03 Creatinine Date Value Ref Range Status 01/11/2025 1.11 0.73 - 1.22 mg/dL Final 10/19/2024 1.16 0.73 - 1.22 mg/dL Final 07/27/2024 1.10 0.73 - 1.22 mg/dL Final Testosterone (ng/dL) Date Value 04/25/2018 125 10/26/2016 177 07/09/2015 229 Hematocrit (%) Date Value 01/11/2025 50.2 10/19/2024 49.7 07/27/2024 46.4 10/14/2021 45.7 07/22/2021 44.2 04/21/2021 40.4 PSA (ng/mL) Date Value 01/11/2025 <0.02 10/19/2024 <0.02 07/27/2024 <0.02 10/14/2021 <0.02 07/22/2021 <0.03 04/21/2021 <0.03 MEDICATIONS: spironolactone (ALDACTONE) 25 mg tablet Take 1 tablet by mouth once daily. FLUoxetine (PROZAC) 20 mg capsule Take 1 capsule by mouth once daily. potassium chloride ER (KLOR-CON) 20 mEq tablet Take 1 tablet by mouth once daily. amLODIPine (NORVASC) 5 mg tablet Take 1 tablet by mouth once daily. folic acid 1 mg tablet Take 1 tablet by mouth once daily. FLUoxetine (PROZAC) 10 mg capsule Take 1 capsule by mouth once daily. losartan (COZAAR) 100 mg tablet Take 1 tablet by mouth once daily. enzalutamide (XTANDI) 40 mg tablet Take 2 tablets (80 mg) by mouth once daily. Calcium Citrate 250 mg calcium tab Take 1 tablet by mouth once daily. Cholecalciferol, Vitamin D3, (VITAMIN D) 25 mcg (1,000 unit) cap Take 1 capsule by mouth once daily. aspirin (CHILDRENS ASPIRIN) 81 mg chewable tablet Take 1 tablet by mouth once daily. Ncbmshrnmxbis-Sclgivyd-Bgkzfe (CENTRUM SILVER) tab Take 1 tablet by mouth once daily. iv contrast (will be provided with radiology test) CT Urogram WO/W Inject, intravenously, once for 1 dose.No IV access, insert saline lock prior to the beginning of sedation, infusion, injection of imaging exam. Discontinue saline lock post exam. If Pt. has a central line or IVAD, may access for administration according to line specific nursing protocol. Once exam is complete flush line and de-access according to line specific nursing protocol in the CT contrast administration guidelines link. 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 History of basal cell carcinoma HLD (hyperlipidemia) Hx of cancer of lung Hydronephrosis with ureteral stricture, not elsewhere classified HYPERTENSION NOS 08/03/2006 MALIGN NEOPL PROSTATE 03/05/2006 Malignant neoplasm of bladder, part unspecified 09/27/2001 bladder cancer 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 Oral cavity, oropharynx clear Neck: Supple, no mass Breast: Deferred Respiratory: Clear to auscultation, bilaterally Cardiovascular: Regular rate and rhythm, no murmurs, rubs, or gallops Abdomen: Soft, non-tender, non-distended, no masses palpable, no hepatosplenomegaly, normal bowel sounds Genitourinary: Deferred MSK: Back is non-tender Extremities: No clubbing, cyanosis, or edema PROBLEM LIST REVIEW: Yes LABS: Results for orders placed or performed in visit on (more content not included)... [facility] 02-13-2025 History of Present illness Narrative Images from the original note were not included. COUNT INCLUDES THE [facility] EST PATIENT CLINIC NOTE (M) Some elements copied from his previous note, which have been updated where appropriate, and all reflect current medical decision making from date of this visit. Note was generated by [employer] and edited as appropriate SERVICE DATE: February 27, 2025 NAME: Isaias Slaughter GENDER: male CHIEF COMPLAINT: presenting for evaluation of hematuria. HISTORY OF PRESENT ILLNESS: The patient is an 89-year-old male presenting for evaluation of hematuria. Hematuria: - Gross hematuria onset 7-10 days ago. - Observed blood in urine stream while standing; urine appeared clear a few hours later. - No hematuria observed today. - Denies dysuria. - No known history of nephrolithiasis. LABS: PSA (ng/mL) Date Value 01/11/2025 <0.02 10/19/2024 <0.02 07/27/2024 <0.02 10/14/2021 <0.02 07/22/2021 <0.03 04/21/2021 <0.03 Creatinine Date Value Ref Range Status 01/11/2025 1.11 0.73 - 1.22 mg/dL Final 10/19/2024 1.16 0.73 - 1.22 mg/dL Final 07/27/2024 1.10 0.73 - 1.22 mg/dL Final Testosterone (ng/dL) Date Value 04/25/2018 125 10/26/2016 177 07/09/2015 229 Hematocrit (%) Date Value 01/11/2025 50.2 10/19/2024 49.7 07/27/2024 46.4 10/14/2021 45.7 07/22/2021 44.2 04/21/2021 40.4 PSA (ng/mL) Date Value 01/11/2025 <0.02 10/19/2024 <0.02 07/27/2024 <0.02 10/14/2021 <0.02 07/22/2021 <0.03 04/21/2021 <0.03 MEDICATIONS: spironolactone (ALDACTONE) 25 mg tablet Take 1 tablet by mouth once daily. FLUoxetine (PROZAC) 20 mg capsule Take 1 capsule by mouth once daily. potassium chloride ER (KLOR-CON) 20 mEq tablet Take 1 tablet by mouth once daily. amLODIPine (NORVASC) 5 mg tablet Take 1 tablet by mouth once daily. folic acid 1 mg tablet Take 1 tablet by mouth once daily. FLUoxetine (PROZAC) 10 mg capsule Take 1 capsule by mouth once daily. losartan (COZAAR) 100 mg tablet Take 1 tablet by mouth once daily. enzalutamide (XTANDI) 40 mg tablet Take 2 tablets (80 mg) by mouth once daily. Calcium Citrate 250 mg calcium tab Take 1 tablet by mouth once daily. Cholecalciferol, Vitamin D3, (VITAMIN D) 25 mcg (1,000 unit) cap Take 1 capsule by mouth once daily. aspirin (CHILDRENS ASPIRIN) 81 mg chewable tablet Take 1 tablet by mouth once daily. Oskfsyajjlgsv-Rhukbufy-Zeqaxl (CENTRUM SILVER) tab Take 1 tablet by mouth once daily. iv contrast (will be provided with radiology test) CT Urogram WO/W Inject, intravenously, once for 1 dose.No IV access, insert saline lock prior to the beginning of sedation, infusion, injection of imaging exam. Discontinue saline lock post exam. If Pt. has a central line or IVAD, may access for administration according to line specific nursing protocol. Once exam is complete flush line and de-access according to line specific nursing protocol in the CT contrast administration guidelines link. 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 History of basal cell carcinoma HLD (hyperlipidemia) Hx of cancer of lung Hydronephrosis with ureteral stricture, not elsewhere classified HYPERTENSION NOS 08/03/2006 MALIGN NEOPL PROSTATE 03/05/2006 Malignant neoplasm of bladder, part unspecified 09/27/2001 bladder cancer 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 Oral cavity, oropharynx clear Neck: Supple, no mass Breast: Deferred Respiratory: Clear to auscultation, bilaterally Cardiovascular: Regular rate and rhythm, no murmurs, rubs, or gallops Abdomen: Soft, non-tender, non-distended, no masses palpable, no hepatosplenomegaly, normal bowel sounds Genitourinary: Deferred MSK: Back is non-tender Extremities: No clubbing, cyanosis, or edema PROBLEM LIST REVIEW: Yes LABS: Results for orders placed or performed in visit on 02/13/25 UA DIP, URINE (POC) Result Value Ref Range GLUCOSE UA (POCT) Negative Negative mg/dL BILIRUBIN UA (POCT) Negative Negative KETONE UA (POCT) Negative Negative mg/dL SPECIFIC GRAVITY UA (POCT) 1.015 1.005 - 1.030 HEMOGLOBIN/BLOOD UA (POCT) Negative Negative PH UA (POCT) 7.0 4.5 - 8.0 PROTEIN UA (POCT) Negative Negative mg/dL UROBILINOGEN UA (POCT) 0.2 Normal E.U./dL NITRITE UA (POCT) Negative Negative LEUKOCYTES UA (POCT) Negative Negative COLOR UA (POCT) Yellow CLARITY UA (POCT) Clear CYTOLOGY NON-WATER RESOURCES ENGINEER Result Value Ref Range Case Report Medical Cytology Report Case: [id number] Authorizing Provider: Juliana Huitron PA-C Collected: 02/13/2025 01:29 PM Ordering Location: Urology Received: 02/13/2025 03:46 PM Pathologist: Josias Bradley MD, PhD Specimen: Urine, Midstream FINAL DIAGNOSIS A - Urine, Midstream Negative for high-grade urothelial carcinoma. Gross Description A. Urine, Midstream 8 cc clear yellow fluid . ThinPrep prepared. Clinical History gross hematuria Performing Lab Technical component, body rolling machine tender screening performed at: [facility], [address] [place] [address], [place] [address] CLIA: [id number] Diagnostic interpretation performed at: [facility], [address] [place] [address], [place] [address] CLIA# [id number] Hospitality Housekeeper: Corona Ryan MD Disclaimer Laboratory Developed Test (LDT) Disclaimer: Performance characteristics of immunohistochemical, immunofluorescent, and chromogenic in-situ hybridization tests have been determined by the performing laboratory within [facility]'s [facility] Pathology and Laboratory Medicine Department ([facility], [facility], [facility], [facility], [facility], [facility], or [facility]) in a manner consistent with CLIA requirements. One or more of these tests may not have been cleared or approved by the FDA. [facility] is regulated under CLIA as qualified to perform high-complexity testing. These tests are used for clinical purposes. These should not be regarded as investigational or for research. Positive and negative controls stain appropriately. BACTERIAL CULTURE, URINE Specimen: Urine, Midstream Result Value Ref Range Culture, Urine No growth (<1,000 CFU/ml) *Note: Due to a large number of results and/or encounters for the requested time period, some results have not been displayed. A complete set of results can be found in Results Review. Urine Culture: Pending Urine Cytology: Pending PROCEDURES: PVR - 0 ml IMAGING: CT Urogram - Pending ASSESSMENT/PLAN: 1. Gross hematuria (R31.0) 2. Painless hematuria (R31.9) - Hematuria observed 7-10 days ago, with intermittent episodes of visible blood followed by clear urine. No associated dysuria. Urinalysis today shows no visible blood. Discussed differential diagnoses including infection, polyps, and tumors. Educated on the importance of further investigation due to the potential severity of underlying causes. Ordered CT scan of the kidneys, ureters, and bladder to be performed at this office. Referred for cystoscopy to be scheduled at [facility]; patient will coordinate transportation with family. Patient understands the necessity of these procedures and agrees to follow the plan. 3. Screening for genitourinary condition (Z13.89) - CT scan and cystoscopy will serve as diagnostic tools to screen for underlying genitourinary conditions. Patient instructed to schedule CT scan at this office and will be contacted by [facility] equipment scheduler for cystoscopy appointment. CT Urogram to be scheduled at [facility] Cystoscopy to scheduled at [facility] they will contact patient # Pt # [phone] Patient family is out of town for 1-2 weeks and will need to have them for transportation () Urine Culture - - Pending Urine Cytology- - Pending Patient Instructions (AVS) - printed for patient - Schedule a CT scan of your kidneys, ureters, and bladder at this [place] office by calling the scheduling desk at the number printed on your paperwork; aim to complete it as soon as possible. - Expect a call from the [facility] equipment scheduler to arrange your cystoscopy; if you miss their call, please call back using the number they provide. - When you speak with the [facility] equipment scheduler, pick a cystoscopy date after your dffxepue-hy-fla returns in 1-2 weeks so you have transportation arranged. - After your cystoscopy, the hospital will notify you of any findings and discuss any needed next steps. JENNIFER Quintanilla MT, PA-C Verified name and date of . CC Post Void Residual HPI: Isaias Slaughter is a 89 year old male. The patient is here now for an appointment with JENNIFER Quintanilla MT, PA-COV. Procedure: Explained procedure to patient and verbalizes understanding. Performed a PVR. Patient urinated and instructed to empty bladder as much as possible just prior to having PVR done using bladder ultrasound scanner. Results of scan: 0 mL The patient tolerated the procedure well. Plan: Appointment with Juliana. documented in this encounter [facility] 02-13-2025 Instructions Juliana Huitron PA-C - 02/13/2025 12:[address] Urogram to be scheduled at [facility] Cystoscopy to scheduled at [facility] they will contact patient # Pt # [phone] Patient family is out of town for 1-2 weeks and will need to have them for transportation () Urine Culture - - Pending Urine Cytology- - Pending documented in this encounter [facility] 02-13-2025 Note HNO ID: [id number] Author: GABY HARRIS LPN Service: ? Author Type: LICENSED NURSE Type: Progress Notes Filed: 02/27/2025 17:13 Note Text: Verified name and date of . CC Post Void Residual HPI: Isaias Slaughter is a 89 year old male. The patient is here now for an appointment with JENNIFER Quintanilla, JULIO, GRACY. Procedure: Explained procedure to patient and verbalizes understanding. Performed a PVR. Patient urinated and instructed to empty bladder as much as possible just prior to having PVR done using bladder ultrasound scanner. Results of scan: 0 mL The patient tolerated the procedure well. Plan: Appointment with Juliana. [facility] 02-09-2025 Telephone encounter Note Spoke with patient and scheduled. Sailaja Sesay [facility] 02-09-2025 Miscellaneous Notes Spoke with patient and scheduled. Sailaja Sesay Consult placed. Please help him with the consult scheduling Regards, Kya Hinton MD Called patient and updated, patient requesting a referral to urology Dash Abraham LPN February 07, 2025 8:53 AM I do not think it is related but its good that it does not continue. Regards, Kya Hinton MD Patient calling has noticed since he started taking the Spironolactone, he has blood colored urine when he first starts to urinate but clears before he is done urinating, has no clots. Patient asking if that is side effect of the medication? He is not having any burning or any issues, he is drinking plenty of fluids. Please advise documented in this encounter [facility] 02-09-2025 Telephone encounter Note Consult placed. Please help him with the consult scheduling Regards, Kya Hinton MD [facility] 02-07-2025 Telephone encounter Note Called patient and updated, patient requesting a referral to urology Dash Abraham LPN February 07, 2025 8:53 AM [facility] 02-06-2025 Telephone encounter Note I do not think it is related but its good that it does not continue. Regards, Kya Hinton MD [facility] 02-06-2025 Telephone encounter Note Patient calling has noticed since he started taking the Spironolactone, he has blood colored urine when he first starts to urinate but clears before he is done urinating, has no clots. Patient asking if that is side effect of the medication? He is not having any burning or any issues, he is drinking plenty of fluids. Please advise [facility] 01-23-2025 Note HNO ID: [id number] Author: KYA HINTON MD Service: ? 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 Isaias reports elevated blood pressure readings, with a recent measurement of 157/?. He is currently taking antihypertensive medications daily, which are organized in a pill box by his son, Jayesh. He denies experiencing dizziness or lower extremity edema. He inquires about the possibility of increasing his antihypertensive medication dosage. 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 He also has metastatic prostate cancer and is currently taking 2 daily doses of Xtandi. He denies any issues with medication adherence. Isaias reports difficulty with hearing and vision. He has an upcoming appointment on the to address his vision issues and plans to obtain new hearing aids, as his current ones are malfunctioning. He spends a significant amount of time watching television and expresses frustration about being unable to engage in activities such as shooting and golfing. Isaias is able to perform activities of daily living, including dressing, toileting, and showering, with the assistance of grab bars and a shower seat. His grandson provides additional support, such as taking out the trash and accompanying him on outings. Isaias reports balance issues but does not use a cane. He is able to cook, do laundry, and wash dishes independently. His diet includes hamburgers, spaghetti, beans, oatmeal with blueberries, waffles, and ham salad sandwiches. He drinks one bottle of Gatorade daily. He receives additional food from his granddaughters and hxojeaxm-vj-mdr. Bp was elevated on recheck, we started him on Spironolactone. Social History Tobacco Use Smoking status: Former Current packs/day: 0.00 Average packs/day: 1 pack/day for 12.0 years (12.0 ttl pk-yrs) Types: Cigarettes Start date: 1952 Quit date: 09/27/1964 Years since quittin.3 Smokeless tobacco: Never Tobacco comments: ETS: Father smoked in childhood home, then quit. Spouse non-smoker. Vaping Use Vaping status: Never Used Substance Use Topics Alcohol use: Yes Comment: rare Drug use: No Past medical history, appointments, medications, allergies reviewed. Pertinent Lab/Diagnostic Studies are reviewed and discussed today Current Outpatient Medications: FLUoxetine (PROZAC) 20 mg capsule potassium chloride ER (KLOR-CON) 20 mEq tablet amLODIPine (NORVASC) 5 mg tablet folic acid 1 mg tablet FLUoxetine (PROZAC) 10 mg capsule losartan (COZAAR) 100 mg tablet enzalutamide (XTANDI) 40 mg tablet Calcium Citrate 250 mg calcium tab Cholecalciferol, Vitamin D3, (VITAMIN D) 25 mcg (1,000 unit) cap aspirin (CHILDRENS ASPIRIN) 81 mg chewable tablet Mavplicxczlrr-Oggvfiwt-Ynutmp (CENTRUM SILVER) tab spironolactone (ALDACTONE) 25 mg tablet Health Maintenance Depression Screening Anxiety Screening DTaP,Tdap,Td Vaccine(1 - Tdap) Shingrix Vaccine(1 of 2) RSV Vaccine(1 - 1-dose 75+ series) Influenza Vaccine(1) Covid-19 Vaccine(3 - season) Advance Directive Discussion@ Review Of Systems Eyes: (+) visual disturbances Ears/Nose/Mouth/Throat: (+) hearing changes Cardiovascular: (-) edema Neurological: (+) gait imbalance, (-) dizziness Physical Exam BP 147/83 Pulse 67 Ht 165.1 cm (5' 5) Wt 74.8 kg (165 lb) SpO2 96% BMI 27.46 kg/m? GENERAL: NAD, alert and oriented SKIN: unremarkable, no rash or skin lesions. HEAD: normocephalic EYES: PERRLA, EOMI, conjunctiva clear LUNGS: Clear to auscultation bilaterally, no wheezes/rhonchi/rales. HEART: Regular rate and rhythm, no murmurs. No ectopy. EXTREMITIES: Normal, No deformities, No skin discoloration, No edema. NEURO: Awake, alert and oriented x3, cranial nerves II-XII grossly intact, normal gait, no involuntary motions Labs: - Lipid Panel: - Total Cholesterol: 195 mg/dL - HDL: 37 mg/dL - LDL: 120 mg/dL - Cholesterol Ratio: 5.27 Assessment and Plan 1. Essential hypertension (I10) Systolic blood pressure readings are elevated at 157 mmHg initially, with subsequent readings of 153/89 mmHg and 147/83 mmHg. Patient is currently on two antihypertensive medications. - Initiated spironolactone at a low dose. - Follow-up in 6 weeks to assess response to medication adjustment. - Ordered blood work to be completed before the next appointment. 2. Coronary artery disease involving [place] coronary artery of [place] heart without angina pectoris (I25.10) 3. Stage 3a chronic kidney disease (HCC) (N18.31) 4. Prediabetes (R73.03) 5. Personal history of malignant neoplasm of lung (Z85.118) History of mucinous adenocarcinom (more content not included)... 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 Isaias reports elevated blood pressure readings, with a recent measurement of 157/?. He is currently taking antihypertensive medications daily, which are organized in a pill box by his son, Jayesh. He denies experiencing dizziness or lower extremity edema. He inquires about the possibility of increasing his antihypertensive medication dosage. 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 He also has metastatic prostate cancer and is currently taking 2 daily doses of Xtandi. He denies any issues with medication adherence. Isaias reports difficulty with hearing and vision. He has an upcoming appointment on the to address his vision issues and plans to obtain new hearing aids, as his current ones are malfunctioning. He spends a significant amount of time watching television and expresses frustration about being unable to engage in activities such as shooting and golfing. Isaias is able to perform activities of daily living, including dressing, toileting, and showering, with the assistance of grab bars and a shower seat. His grandson provides additional support, such as taking out the trash and accompanying him on outings. Isaias reports balance issues but does not use a cane. He is able to cook, do laundry, and wash dishes independently. His diet includes hamburgers, spaghetti, beans, oatmeal with blueberries, waffles, and ham salad sandwiches. He drinks one bottle of Gatorade daily. He receives additional food from his granddaughters and [id number]-xt-gwf. Bp was elevated on recheck, we started him on Spironolactone. Social History Tobacco Use Smoking status: Former Current packs/day: 0.00 Average packs/day: 1 pack/day for 12.0 years (12.0 ttl pk-yrs) Types: Cigarettes Start date: 1953 Quit date: 09/27/1964 Years since quittin.3 Smokeless tobacco: Never Tobacco comments: ETS: Father smoked in childhood home, then quit. Spouse non-smoker. Vaping Use Vaping status: Never Used Substance Use Topics Alcohol use: Yes Comment: rare Drug use: No Past medical history, appointments, medications, allergies reviewed. Pertinent Lab/Diagnostic Studies are reviewed and discussed today Current Outpatient Medications: FLUoxetine (PROZAC) 20 mg capsule potassium chloride ER (KLOR-CON) 20 mEq tablet amLODIPine (NORVASC) 5 mg tablet folic acid 1 mg tablet FLUoxetine (PROZAC) 10 mg capsule losartan (COZAAR) 100 mg tablet enzalutamide (XTANDI) 40 mg tablet Calcium Citrate 250 mg calcium tab Cholecalciferol, Vitamin D3, (VITAMIN D) 25 mcg (1,000 unit) cap aspirin (CHILDRENS ASPIRIN) 81 mg chewable tablet Qvkbmoxpdhsxa-Erylnukx-Avnndo (CENTRUM SILVER) tab spironolactone (ALDACTONE) 25 mg tablet Health Maintenance Depression Screening Anxiety Screening DTaP,Tdap,Td Vaccine(1 - Tdap) Shingrix Vaccine(1 of 2) RSV Vaccine(1 - 1-dose 75+ series) Influenza Vaccine(1) Covid-19 Vaccine(3 - season) Advance Directive Discussion@ Review Of Systems Eyes: (+) visual disturbances Ears/Nose/Mouth/Throat: (+) hearing changes Cardiovascular: (-) edema Neurological: (+) gait imbalance, (-) dizziness Physical Exam BP 147/83 Pulse 67 Ht 165.1 cm (5' 5) Wt 74.8 kg (165 lb) SpO2 96% BMI 27.46 kg/m GENERAL: NAD, alert and oriented SKIN: unremarkable, no rash or skin lesions. HEAD: normocephalic EYES: PERRLA, EOMI, conjunctiva clear LUNGS: Clear to auscultation bilaterally, no wheezes/rhonchi/rales. HEART: Regular rate and rhythm, no murmurs. No ectopy. EXTREMITIES: Normal, No deformities, No skin discoloration, No edema. NEURO: Awake, alert and oriented x3, cranial nerves II-XII grossly intact, normal gait, no involuntary motions Labs: - Lipid Panel: - Total Cholesterol: 195 mg/dL - HDL: 37 mg/dL - LDL: 120 mg/dL - Cholesterol Ratio: 5.27 Assessment and Plan 1. Essential hypertension (I10) Systolic blood pressure readings are elevated at 157 mmHg initially, with subsequent readings of 153/89 mmHg and 147/83 mmHg. Patient is currently on two antihypertensive medications. - Initiated spironolactone at a low dose. - Follow-up in 6 weeks to assess response to medication adjustment. - Ordered blood work to be completed before the next appointment. 2. Coronary artery disease involving [place] coronary artery of [place] heart without angina pectoris (I25.10) 3. Stage 3a chronic kidney disease (HCC) (N18.31) 4. Prediabetes (R73.03) 5. Personal history of malignant neoplasm of lung (Z85.118) History of mucinous adenocarcinoma of the lung, status post lobectomy. Voice recognition software was used to compose this office note. Please excuse any unintended typographical errors. Recording using ambient [employer] software for draft documentation of the visit was discussed with the patient/authorized traveling sales representative; all questions welcomed and answered. Patient/authorized traveling sales representative agreed to proceed Kya Hinton MD documented in this encounter [facility] 01-11-2025 Note HNO ID: [id number] Author: DANIELLE CAICEDO LPN Service: ? Author Type: LICENSED NURSE Type: Progress Notes Filed: 01/11/2025 10:17 Note Text: Eligard injection administered, Rt. Buttock,tolerated well, no immediate adverse reactions noted. See office notes Danielle Caicedo LPN [facility] 01-11-2025 History of Present illness Narrative Eligard injection administered, Rt. Buttock,tolerated well, no immediate adverse reactions noted. See office notes Danielle Caicedo LPN documented in this encounter [facility] 01-11-2025 Note HNO ID: [id number] Author: ABIGAIL SAAVEDRA, ? Service: ? Author Type: Nurse Practitioner Type: Progress Notes Filed: 01/11/2025 13:22 Note Text: Isaias Slaughter 1935 01/11/2025 HISTORY OF PRESENT ILLNESS: Isaias Slaughter is a 88 year old male with history of lung cancer, bladder cancer and 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 Oncological history: Lung cancer--He underwent a right lower lobectomy along with mediastinal lymph node dissection. Surgery was performed on 02/21/14. 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 The tumor was 5 x 4.2 x 1.8 cm in size. There was no evidence of any pleural involvement. No evidence of any lymphovascular invasion identified. There was no evidence of any perineural invasion. The patient had no evidence of any mediastinal lymph node metastasis by this tumor. The right 10R was positive for metastasis the the phenotyping was different from the lung cancer. The lymph node showed a staining pattern consistent with adenocarcinoma of prostatic primary. This was positive for PSA, positive for prostate-specific membrane antigen as well as the prostatic acid phosphatase. The adenocarcinoma was diffusely positive for synaptophysin and focally positive for chromogranin highlighting a neuroendocrine differentiating pattern. Prostate cancer; history of prostate cancer ( Janis score 6- 7 ). This was organ confined and was treated with external beam radiation. The patient had a PSA level checked which was reported at 0.28. 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 Complained of severe muscle aches and pain, fatigue and weight loss after treatment started. Bladder cancer; history of multiple superficial bladder cancers. These have been removed through a TURB. Cystoscopy recently was positive for low-grade papillary carcinoma. Previous treatment: Lupron/abiraterone/prednisone. Zytiga became cost prohibitive. Current treatment: Lupron/ Xtandi 80 mg daily TURBT 01/29/2023-- -Extensive, endoscopically unresectable papillary tumor contiguously extending from right mid-ureter to UVJ, circumferential around ureter. -Approximately 10 superficial low grade appearing bladder tumors up to 1cm in size and a 2cm partially obstructing papillary tumor at the right ureteral orifice -1mm bulbar urethral lesions, possible tumor. -Severely dilated, torturous right ureter on retrograde pyelogram with severe hydro Pathology: Bladder, transurethral resection of tumor: -Noninvasive papillary urothelial carcinoma, predominantly low-grade with focal high-grade features. -Muscularis propria is not present for evaluation. Presents for ongoing oncologic management. 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 Increased aspirin 81 mg twice daily. No unusual bleeding or unexplained bruising. Taking 80 mg enzalutamide since May 2023 due to feeling poorly on 160 mg. Feels much better on 80 mg daily Lesion on forehead keeps bleeding Interval Hx: Mr. Slaughter presents today for follow up and lab review with his family. He reports feeling well overall. Denies new issues since last being seen. 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 Healing well. Following with derm. Is applying cream to other areas of SCC. Some mild redness to both cheeks Denies new issues. No SOB, CP. No cough. Denies recent illness or fevers. No new aches or pains. Denies HF, NS. No changes in bowel or bladder habits. No bleeding. No edema. 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 Continue xtandi 80 mg daily pending PSA 2. Lupron(eligard) today, every 3 months 3. See back 3 months with labs as scheduled - CBC, CMP, PSA Advised to call with any questions or concerns in the meantime. 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 Oncological history: Lung cancer--He underwent a right lower lobectomy along with mediastinal lymph node dissection. Surgery was performed on 02/21/14. 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 The tumor was 5 x 4.2 x 1.8 cm in size. There was no evidence of any pleural involvement. No evidence of any lymphovascular invasion identified. There was no evidence of any perineural invasion. The patient had no evidence of any mediastinal lymph node metastasis by this tumor. The right 10R was positive for metastasis the the phenotyping was different from the lung cancer. The lymph node showed a staining pattern consistent with adenocarcinoma of prostatic primary. This was positive for PSA, positive for prostate-specific membrane antigen as well as the prostatic acid phosphatase. The adenocarcinoma was diffusely positive for synaptophysin and focally positive for chromogranin highlighting a neuroendocrine differentiating pattern. Prostate cancer; history of prostate cancer ( Lillian score 6- 7 ). This was organ confined and was treated with external beam radiation. The patient had a PSA level checked which was reported at 0.28. 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 Complained of severe muscle aches and pain, fatigue and weight loss after treatment started. Bladder cancer; history of multiple superficial bladder cancers. These have been removed through a TURB. Cystoscopy recently was positive for low-grade papillary carcinoma. Previous treatment: Lupron/abiraterone/prednisone. Zytiga became cost prohibitive. Current treatment: Lupron/ Xtandi 80 mg daily TURBT 01/29/2023-- -Extensive, endoscopically unresectable papillary tumor contiguously extending from right mid-ureter to UVJ, circumferential around ureter. -Approximately 10 superficial low grade appearing bladder tumors up to 1cm in size and a 2cm partially obstructing papillary tumor at the right ureteral orifice -1mm bulbar urethral lesions, possible tumor. -Severely dilated, torturous right ureter on retrograde pyelogram with severe hydro Pathology: Bladder, transurethral resection of tumor: -Noninvasive papillary urothelial carcinoma, predominantly low-grade with focal high-grade features. -Muscularis propria is not present for evaluation. Presents for ongoing oncologic management. 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 Increased aspirin 81 mg twice daily. No unusual bleeding or unexplained bruising. Taking 80 mg enzalutamide since May 2023 due to feeling poorly on 160 mg. Feels much better on 80 mg daily Lesion on forehead keeps bleeding Interval Hx: Mr. Slaughter presents today for follow up and lab review with his family. He reports feeling well overall. Denies new issues since last being seen. 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 Healing well. Following with derm. Is applying cream to other areas of SCC. Some mild redness to both cheeks Denies new issues. No SOB, CP. No cough. Denies recent illness or fevers. No new aches or pains. Denies HF, NS. No changes in bowel or bladder habits. No bleeding. No edema. 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 Continue xtandi 80 mg daily pending PSA 2. Lupron(eligard) today, every 3 months 3. See back 3 months with labs as scheduled - CBC, CMP, PSA Advised to call with any questions or concerns in the meantime. 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 Malignant 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 (HCC) Malignant neoplasm of urinary bladder (HCC) Other and unspecified hyperlipidemia Hyperlipidemia PERS HX SKIN MALIGNANCY NEC 11/08/2006 Ureteral cancer (HCC) PAST SURGICAL HISTORY Procedure Laterality Date ANES TRANSURETHRAL RESECTION OF BLADDER TUMOR 2012 ANES TRANSURETHRAL RESECTION OF BLADDER TUMOR 2010 APPENDECTOMY 194 BLADDER BIOSPY FULGUR 2018 CARDIAC 2013 stent to RCA CATARACT EXTRACTION W/ INTRAOCULAR LENS IMPLANT HX Right COLON SURGERY HX 2020 COLONOSCOPY FLX DX W/COLLJ SPEC WHEN PFRMD 08/25/2012 Colonoscopy report 5 years COLSC FLX W/RMVL OF TUMOR POLYP LESION SNARE TQ 12/30/2006 CYSTOSCOPY,+URETEROSCOPY Right 03/2021 CYSTOURETHROSCOPY,FULGUR .5-2CM LESN 01/2021 CYSTOURETHROSCOPY,FULGUR .5-2CM LESN 2011 EGD REMOVAL TUMOR POLYP/OTHER LESION SNARE TECH 02/2022 done at [facility] PAST SURGICAL HISTORY OF 2001 TURB BLADDER CANCER PAST SURGICAL HISTORY OF 2013 cardiac stent x1 RMVL LUNG OTHER THAN PNEUMONECTOMY 1 LOBE LOBECT 02/21/2014 Mediastinoscopy, right posterolateral thoracotomy, right lower lobectomy, lymphadenectomy, rib blocks RPR 1ST INGUN HRNA AGE 5 YRS/> REDUCIBLE Left 03/19/2017 SIGMOIDOSCOPY FLX DX W/COLLJ SPEC BR/WA IF PFRMD Sigmoidoscopy TONSILLECTOMY PRIMARY/SECONDARY <AGE 12 Tonsillectomy FAMILY HISTORY Problem Relation Age of Onset Heart Mother Heart Father Ischemic Heart Disease Father Hypertension Brother Lipids Brother None No Family History No lung disease. Social History Tobacco Use Smoking status: Former Current packs/day: 0.00 Average packs/day: 1 pack/day for 12.0 years (12.0 ttl pk-yrs) Types: Cigarettes Start date: 1952 Quit date: 09/27/1964 Years since quittin.3 Smokeless tobacco: Never Tobacco comments: ETS: Father smoked in childhood home, then quit. Spouse non-smoker. Vaping Use Vaping status: Never Used Substance Use Topics Alcohol use: Yes Comment: rare Drug use: No ALLERGIES: ALLERGIES Allergen Reactions Amoxicillin Diarrhea, GI Upset Patient cannot tolerate this medication Lisinopril Cough Gqswlph-Xhs-Cke Red* Other: See Comments Patient states he will not take statins because of what they did to his . CURRENT OUTPATIENT MEDICATIONS: FLUoxetine (PROZAC) 20 mg capsule^Take 1 capsule by mouth once daily.^Disp: 90 capsule^Rfl: 3 potassium chloride ER (KLOR-CON) 20 mEq tablet^Take 1 tablet by mouth once daily.^Disp: 90 tablet^Rfl: 3 amLODIPine (NORVASC) 5 mg tablet^Take 1 tablet by mouth once daily.^Disp: 90 tablet^Rfl: 3 folic acid 1 mg tablet^Take 1 tablet by mouth once daily.^Disp: 100 tablet^Rfl: 3 FLUoxetine (PROZAC) 10 mg capsule^Take 1 capsule by mouth once daily.^Disp: 14 capsule^Rfl: 0 losartan (COZAAR) 100 mg tablet^Take 1 tablet by mouth once daily.^Disp: 90 tablet^Rfl: 3 enzalutamide (XTANDI) 40 mg tablet^Take 2 tablets (80 mg) by mouth once daily.^Disp: 60 tablet^Rfl: 11 Calcium Citrate 250 mg calcium tab^Take 1 tablet by mouth once daily.^Disp: ^Rfl: Cholecalciferol, Vitamin D3, (VITAMIN D) 25 mcg (1,000 unit) cap^Take 1 capsule by mouth once daily.^Disp: 100 capsule^Rfl: 2 aspirin (CHILDRENS ASPIRIN) 81 mg chewable tablet^Take 1 tablet by mouth once daily.^Disp: ^Rfl: 0 Cpieivqgyuatu-Hlszjsrr-Canslb (CENTRUM SILVER) tab^Take 1 tablet by mouth once daily.^Disp: ^Rfl: REVIEW OF SYSTEMS: GENERAL: No fever, night sweats, weight loss or malaise. All other reviewed and negative other than HPI. All systems reviewed on 01/11/2025 with pertinent positives and negatives as outlined in the interval history. PHYSICAL EXAMINATION: VITAL SIGNS: BP 163/74 Pulse 62 Temp 97.1 Resp 12 Wt 164 lb (74.4kg) SpO2 97% GENERAL APPEARANCE: Well appearing, in no acute distress, alert and oriented x3, well-hydrated, well nourished. CHEST: Clear HEART: RRR EXTREMITIES: No edema I have performed the physical exam today (01/11/2025) and have edited the note to correlate with current findings. Abigail Saavedra APRN.ACQUISITIONS ASSISTANT I spent a total of 30 minutes on the date of the service which included preparing to see the patient, ymnr-yx-deoc patient care, completing clinical documentation, obtaining and/or reviewing separately obtained history, and counseling and educating the patient/family/caregiver. Portions of this note including HPI, ROS, impression/plan may have been copied forward as to provide important historical information essential in contributing to medical decision making. Documentation has been reviewed and edited as necessary to support clinical decision making for today's visit and to reflect my own independent evaluation of this patient. documented in this encounter [facility] 01-09-2025 Note Patient Outreach (IN [facility]) ISAIAS SLAUGHTER ([id number]) 1935 M Date Time Provider Department 01/09/25 KYA HINTON During your visit today, we recorded the following information about you: Allergies As of Date: 01/09/2025 Noted Allergy Reaction AMOXICILLIN 12/30/2016 6 - Diarrhea 8 - GI Upset Comments: Patient cannot tolerate this medication LISINOPRIL 10/08/2014 3 - Cough [id number]-[id number]-DIQ REDUCTASE INHIBIT*01/28/2021 14 - Other: See Comments Comments: Patient states he will not take statins because of what they did to his . Date Reviewed: 10/19/2024 Reviewed by: Abigail Saavedra - Fully Assessed Visit Diagnosis:HLD (hyperlipidemia) [E78.5] Order(s):LIPID PANEL, FASTING [SQLIPB] Order #: [id number] FUTURE Prescriptions as of 01/12/2025 - FLUoxetine (PROZAC) 20 mg capsule Take 1 capsule by mouth once daily. - potassium chloride ER (KLOR-CON) 20 mEq tablet Take 1 tablet by mouth once daily. - amLODIPine (NORVASC) 5 mg tablet Take 1 tablet by mouth once daily. - folic acid 1 mg tablet Take 1 tablet by mouth once daily. - FLUoxetine (PROZAC) 10 mg capsule Take 1 capsule by mouth once daily. - losartan (COZAAR) 100 mg tablet Take 1 tablet by mouth once daily. - enzalutamide (XTANDI) 40 mg tablet Take 2 tablets (80 mg) by mouth once daily. - Calcium Citrate 250 mg calcium tab Take 1 tablet by mouth once daily. - Cholecalciferol, Vitamin D3, (VITAMIN D) 25 mcg (1,000 unit) cap Take 1 capsule by mouth once daily. - aspirin (CHILDRENS ASPIRIN) 81 mg chewable tablet Take 1 tablet by mouth once daily. - Mrgjetdgfpvoz-Dzmclnrs-Xkcluy (CENTRUM SILVER) tab Take 1 tablet by mouth once daily. 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] 07/20/2012 Presence of bare metal stent in right coronary *10/15/2013 HLD (hyperlipidemia) [E78.5] 01/08/2014 CAD (coronary artery disease) [I25.10] 01/08/2014 Mediastinoscopy, right thoracotomy, right lower*02/01/2014 DVT prophylaxis [NUA1986] 02/22/2014 10/04/2017 DISPOSITION AND FOLLOW-UP [V999.01] 02/22/2014 09/10/2014 Acute postoperative pain [G89.18] 02/24/2014 06/11/2016 Carcinoma of lung (HCC) [C34.90] 05/17/2014 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] 09/26/2014 Hemolytic anemia (HCC) [D58.9] 10/11/2014 10/04/2017 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] 02/13/2015 10/04/2017 History of basal cell carcinoma [Z85.828] 06/10/2015 Neoplasm of uncertain behavior of skin [D48.5] 06/10/2015 06/11/2016 AK (actinic keratosis) [L57.0] 06/10/2015 Malignant 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 *07/05/2015 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 Patient has been identified by name and date of : Yes Patient phones for refill(s): Requested Prescriptions Pending Prescriptions Disp Refills FLUoxetine (PROZAC) 20 mg capsule 90 capsule 3 Sig: Take 1 capsule by mouth once daily. potassium chloride ER (KLOR-CON) 20 mEq tablet 90 tablet 3 Sig: Take 1 tablet by mouth once daily. Date of last office visit in primary care: 10/17/2024 Date of next office visit in primary care: 01/11/2025 Please advise. Thank you. Angela Brown LPN. [facility] 11-07-2024 Miscellaneous Notes Patient using different pharmacy. Patient has been identified by name and date of : Yes Patient phones for refill(s): Requested Prescriptions Pending Prescriptions Disp Refills FLUoxetine (PROZAC) 20 mg capsule 90 capsule 3 Sig: Take 1 capsule by mouth once daily. potassium chloride ER (KLOR-CON) 20 mEq tablet 90 tablet 3 Sig: Take 1 tablet by mouth once daily. Date of last office visit in primary care: 10/17/2024 Date of next office visit in primary care: 01/11/2025 Please advise. Thank you. Angela Brown LPN. documented in this encounter [facility] 10-30-2024 Telephone encounter Note Patient wanting RX to go to different pharmacy. Patient has been identified by name and date of : Yes Patient phones for refill(s): Requested Prescriptions Pending Prescriptions Disp Refills amLODIPine (NORVASC) 5 mg tablet 90 tablet 3 Sig: Take 1 tablet by mouth once daily. Date of last office visit in primary care: 07/16/2023 Date of next office visit in primary care: 01/23/2025 Please advise. Thank you. Angela Brown LPN. [facility] 10-30-2024 Miscellaneous Notes Patient wanting RX to go to different pharmacy. Patient has been identified by name and date of : Yes Patient phones for refill(s): Requested Prescriptions Pending Prescriptions Disp Refills amLODIPine (NORVASC) 5 mg tablet 90 tablet 3 Sig: Take 1 tablet by mouth once daily. Date of last office visit in primary care: 07/16/2023 Date of next office visit in primary care: 01/23/2025 Please advise. Thank you. Angela Brown LPN. documented in this encounter [facility] 10-19-2024 Note HNO ID: [id number] Author: DANIELLE CAICEDO LPN Service: ? Author Type: LICENSED NURSE Type: Progress Notes Filed: 10/19/2024 10:36 Note Text: Eligard injection administered, left buttock, tolerated well, no immediate adverse reactions noted. See office notes Danielle Caicedo LPN [facility] 10-19-2024 Note HNO ID: [id number] Author: ABIGAIL SAAVEDRA, ? Service: ? Author Type: Nurse Practitioner Type: Progress Notes Filed: 10/19/2024 12:15 Note Text: Isaias Slaughter 1935 10/19/2024 HISTORY OF PRESENT ILLNESS: Isaias Slaughter is a 88 year old male with history of lung cancer, bladder cancer and 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 Oncological history: Lung cancer--He underwent a right lower lobectomy along with mediastinal lymph node dissection. Surgery was performed on 02/21/14. 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 The tumor was 5 x 4.2 x 1.8 cm in size. There was no evidence of any pleural involvement. No evidence of any lymphovascular invasion identified. There was no evidence of any perineural invasion. The patient had no evidence of any mediastinal lymph node metastasis by this tumor. The right 10R was positive for metastasis the the phenotyping was different from the lung cancer. The lymph node showed a staining pattern consistent with adenocarcinoma of prostatic primary. This was positive for PSA, positive for prostate-specific membrane antigen as well as the prostatic acid phosphatase. The adenocarcinoma was diffusely positive for synaptophysin and focally positive for chromogranin highlighting a neuroendocrine differentiating pattern. Prostate cancer; history of prostate cancer ( Lillian score 6- 7 ). This was organ confined and was treated with external beam radiation. The patient had a PSA level checked which was reported at 0.28. 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 Complained of severe muscle aches and pain, fatigue and weight loss after treatment started. Bladder cancer; history of multiple superficial bladder cancers. These have been removed through a TURB. Cystoscopy recently was positive for low-grade papillary carcinoma. Previous treatment: Lupron/abiraterone/prednisone. Zytiga became cost prohibitive. Current treatment: Lupron/ Xtandi 80 mg daily TURBT 01/29/2023-- -Extensive, endoscopically unresectable papillary tumor contiguously extending from right mid-ureter to UVJ, circumferential around ureter. -Approximately 10 superficial low grade appearing bladder tumors up to 1cm in size and a 2cm partially obstructing papillary tumor at the right ureteral orifice -1mm bulbar urethral lesions, possible tumor. -Severely dilated, torturous right ureter on retrograde pyelogram with severe hydro Pathology: Bladder, transurethral resection of tumor: -Noninvasive papillary urothelial carcinoma, predominantly low-grade with focal high-grade features. -Muscularis propria is not present for evaluation. Presents for ongoing oncologic management. 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 Increased aspirin 81 mg twice daily. No unusual bleeding or unexplained bruising. Taking 80 mg enzalutamide since May 2023 due to feeling poorly on 160 mg. Feels much better on 80 mg daily Lesion on forehead keeps bleeding Interval Hx: Mr. Slaughter presents today for follow up and lab review with his son Xray today pending. Reports feeling well overall. 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 Healing well. Following with derm. Is applying cream to other areas of SCC. Denies new issues. No SOB, CP. No cough. Denies recent illness or fevers. No new aches or pains. Denies HF, NS. No changes in bowel or bladder habits. No bleeding. 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 Continue xtandi 80 mg daily pending PSA 2. Lupron(eligard) today, every 3 months 3. 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 [facility] 10-19-2024 History of Present illness Narrative Isaias Slaughter 1935 10/19/2024 HISTORY OF PRESENT ILLNESS: Isaias Slaughter is a 88 year old male with history of lung cancer, bladder cancer and 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 Oncological history: Lung cancer--He underwent a right lower lobectomy along with mediastinal lymph node dissection. Surgery was performed on 02/21/14. 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 The tumor was 5 x 4.2 x 1.8 cm in size. There was no evidence of any pleural involvement. No evidence of any lymphovascular invasion identified. There was no evidence of any perineural invasion. The patient had no evidence of any mediastinal lymph node metastasis by this tumor. The right 10R was positive for metastasis the the phenotyping was different from the lung cancer. The lymph node showed a staining pattern consistent with adenocarcinoma of prostatic primary. This was positive for PSA, positive for prostate-specific membrane antigen as well as the prostatic acid phosphatase. The adenocarcinoma was diffusely positive for synaptophysin and focally positive for chromogranin highlighting a neuroendocrine differentiating pattern. Prostate cancer; history of prostate cancer ( Janis score 6- 7 ). This was organ confined and was treated with external beam radiation. The patient had a PSA level checked which was reported at 0.28. 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 Complained of severe muscle aches and pain, fatigue and weight loss after treatment started. Bladder cancer; history of multiple superficial bladder cancers. These have been removed through a TURB. Cystoscopy recently was positive for low-grade papillary carcinoma. Previous treatment: Lupron/abiraterone/prednisone. Zytiga became cost prohibitive. Current treatment: Lupron/ Xtandi 80 mg daily TURBT 01/29/2023-- -Extensive, endoscopically unresectable papillary tumor contiguously extending from right mid-ureter to UVJ, circumferential around ureter. -Approximately 10 superficial low grade appearing bladder tumors up to 1cm in size and a 2cm partially obstructing papillary tumor at the right ureteral orifice -1mm bulbar urethral lesions, possible tumor. -Severely dilated, torturous right ureter on retrograde pyelogram with severe hydro Pathology: Bladder, transurethral resection of tumor: -Noninvasive papillary urothelial carcinoma, predominantly low-grade with focal high-grade features. -Muscularis propria is not present for evaluation. Presents for ongoing oncologic management. 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 Increased aspirin 81 mg twice daily. No unusual bleeding or unexplained bruising. Taking 80 mg enzalutamide since May 2023 due to feeling poorly on 160 mg. Feels much better on 80 mg daily Lesion on forehead keeps bleeding Interval Hx: Mr. Slaughter presents today for follow up and lab review with his son Xray today pending. Reports feeling well overall. 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 Healing well. Following with derm. Is applying cream to other areas of SCC. Denies new issues. No SOB, CP. No cough. Denies recent illness or fevers. No new aches or pains. Denies HF, NS. No changes in bowel or bladder habits. No bleeding. 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 Continue xtandi 80 mg daily pending PSA 2. Lupron(eligard) today, every 3 months 3. 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 Malignant 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 (HCC) Malignant neoplasm of urinary bladder (HCC) Other and unspecified hyperlipidemia Hyperlipidemia PERS HX SKIN MALIGNANCY NEC 11/08/2006 Ureteral cancer (HCC) PAST SURGICAL HISTORY Procedure Laterality Date ANES TRANSURETHRAL RESECTION OF BLADDER TUMOR 2012 ANES TRANSURETHRAL RESECTION OF BLADDER TUMOR 2010 APPENDECTOMY 1946 BLADDER BIOSPY FULGUR 2018 CARDIAC 2013 stent to RCA CATARACT EXTRACTION W/ INTRAOCULAR LENS IMPLANT HX Right COLON SURGERY HX 2019 COLONOSCOPY FLX DX W/COLLJ SPEC WHEN PFRMD 08/25/2012 Colonoscopy report 5 years COLSC FLX W/RMVL OF TUMOR POLYP LESION SNARE TQ 12/30/2006 CYSTOSCOPY,+URETEROSCOPY Right 03/2021 CYSTOURETHROSCOPY,FULGUR .5-2CM LESN 01/2021 CYSTOURETHROSCOPY,FULGUR .5-2CM LESN 2011 EGD REMOVAL TUMOR POLYP/OTHER LESION SNARE TECH 02/2022 done at [facility] PAST SURGICAL HISTORY OF 2001 TURB BLADDER CANCER PAST SURGICAL HISTORY OF 2013 cardiac stent x1 RMVL LUNG OTHER THAN PNEUMONECTOMY 1 LOBE LOBECT 02/21/2014 Mediastinoscopy, right posterolateral thoracotomy, right lower lobectomy, lymphadenectomy, rib blocks RPR 1ST INGUN HRNA AGE 5 YRS/> REDUCIBLE Left 03/19/2017 SIGMOIDOSCOPY FLX DX W/COLLJ SPEC BR/WA IF PFRMD Sigmoidoscopy TONSILLECTOMY PRIMARY/SECONDARY <AGE 12 Tonsillectomy FAMILY HISTORY Problem Relation Age of Onset Heart Mother Heart Father Ischemic Heart Disease Father Hypertension Brother Lipids Brother None No Family History No lung disease. Social History Tobacco Use Smoking status: Former Current packs/day: 0.00 Average packs/day: 1 pack/day for 12.0 years (12.0 ttl pk-yrs) Types: Cigarettes Start date: 1952 Quit date: 09/27/1964 Years since quittin.1 Smokeless tobacco: Never Tobacco comments: ETS: Father smoked in childhood home, then quit. Spouse non-smoker. Vaping Use Vaping status: Never Used Substance Use Topics Alcohol use: Yes Comment: rare Drug use: No ALLERGIES: ALLERGIES Allergen Reactions Amoxicillin Diarrhea, GI Upset Patient cannot tolerate this medication Lisinopril Cough Drhvmpj-Hsp-Awk Red* Other: See Comments Patient states he will not take statins because of what they did to his . CURRENT OUTPATIENT MEDICATIONS: FLUoxetine (PROZAC) 10 mg capsule^Take 1 capsule by mouth once daily.^Disp: 14 capsule^Rfl: 0 losartan (COZAAR) 100 mg tablet^Take 1 tablet by mouth once daily.^Disp: 90 tablet^Rfl: 3 enzalutamide (XTANDI) 40 mg tablet^Take 2 tablets (80 mg) by mouth once daily.^Disp: 60 tablet^Rfl: 11 amLODIPine (NORVASC) 5 mg tablet^Take 1 tablet by mouth once daily.^Disp: 90 tablet^Rfl: 3 folic acid 1 mg tablet^Take 1 tablet by mouth once daily.^Disp: 100 tablet^Rfl: 3 potassium chloride ER (KLOR-CON) 20 mEq tablet^Take 1 tablet by mouth once daily.^Disp: 90 tablet^Rfl: 3 FLUoxetine (PROZAC) 20 mg capsule^Take 1 capsule by mouth once daily.^Disp: 90 capsule^Rfl: 3 Calcium Citrate 250 mg calcium tab^Take 1 tablet by mouth once daily.^Disp: ^Rfl: Cholecalciferol, Vitamin D3, (VITAMIN D) 25 mcg (1,000 unit) cap^Take 1 capsule by mouth once daily.^Disp: 100 capsule^Rfl: 2 aspirin (CHILDRENS ASPIRIN) 81 mg chewable tablet^Take 1 tablet by mouth once daily.^Disp: ^Rfl: 0 Twwzihosyhxmm-Cmpnunxh-Qxelwc (CENTRUM SILVER) tab^Take 1 tablet by mouth once daily.^Disp: ^Rfl: REVIEW OF SYSTEMS: GENERAL: No fever, night sweats, weight loss or malaise. All other reviewed and negative other than HPI. All systems reviewed on 10/19/2024 with pertinent positives and negatives as outlined in the interval history. PHYSICAL EXAMINATION: VITAL SIGNS: BP 144/83 Pulse 69 Temp 98.6 Resp 12 Wt 166 lb (75.3kg) SpO2 96% GENERAL APPEARANCE: Well appearing, in no acute distress, alert and oriented x3, well-hydrated, well nourished. CHEST: Clear HEART: RRR EXTREMITIES: No edema I have performed the physical exam today (10/19/2024) and have edited the note to correlate with current findings. Abigail Saavedra APRN.ACQUISITIONS ASSISTANT I spent a total of 30 minutes on the date of the service which included preparing to see the patient, [id number] patient care, completing clinical documentation, obtaining and/or reviewing separately obtained history, and counseling and educating the patient/family/caregiver. Portions of this note including HPI, ROS, impression/plan may have been copied forward as to provide important historical information essential in contributing to medical decision making. Documentation has been reviewed and edited as necessary to support clinical decision making for today's visit and to reflect my own independent evaluation of this patient. documented in this encounter [facility] 10-17-2024 Note Addended by: STANLEY MCKEON on: 10/17/2024 12:42 PM Modules accepted: Level of Service [facility] 10-17-2024 Miscellaneous Notes Addended by: STANLEY MCKEON on: 10/17/2024 12:42 PM Modules accepted: Level of Service documented in this encounter [facility] 10-17-2024 Note HNO ID: [id number] Author: STANLEY MCKEON PA-C Service: ? Author Type: Physician Inspector Floor Sub Assembly Type: Progress Notes Filed: 10/17/2024 12:42 Note Text: Isaias Slaughter is a 89 year old male here for a Medicare wellness visit. Medicare Health Risk Assessment General Health Overall well Exercise: Minutes/Day Squats, light free weights, marching in place and toe lifts Exercise: Days/Week 7 days a week Alcohol: Daily Use none Alcohol: Drinks/Day none Alcohol: 6 or more drinks none Feel off balance Occasionally feels a little unsteady. No recent falls. Carpet in the home, no rugs. Concerns: Teeth/Dentures none Concerns: Sexual function none Troubled by feelings Had been on prozac 20 mg, not takig consistently. Frequency: Eating healthy diet yes ADLs requiring help none Safety precautions in home/vehicle Driving, doesn't always wear seatbelt Smoke, vape, chews tobacco None Difficulty hearing [facility] Needs to change the [facility] Difficulty seeing Has not been seen for 2-3 years Current Providers Specialists: I have reviewed specialist-related care of the patient in the medical record. Follows with Dr. 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 Dermatology-[facility] Medical/Family history review Reviewed and updated problem list, medical/surgical/family/social history, medications, and allergies. Opioid use review Opioid Medications (last 90 days) No data to display Anxiety/Depression screening Recommendation: continuing current treatment plan Restart prozac, taking daily. Cognitive screening Mini Cog Score: 5 Cognitive screening reviewed and No further action needed (score 3-5). Functional Observation Was the patient's Timed Up AND Go test unsteady or >= 12 seconds? No Advance Care Planning Surrogate decision maker and/or advance care plan documented Measurements BP 138/74 Pulse 72 Ht 165 cm (5' 4.96) Wt 75.8 kg (167 lb 1.3 oz) SpO2 96% BMI 27.84 kg/m? Vision Screening: Hearing/vision screening results: Patient will schedule with [facility]. Assessment/Plan Medicare annual wellness visit, subsequent (Z00.00) - Counseled on healthy diet and regular exercise - Fall avoidance information provided - Personalized prevention plan provided Stanley Mckeon PA-C 10/17/2024 10/17/2024 Patient presents with: Medicare Wellness Exam Patient also notes feeling down. SUBJECTIVE: This is a 89 year old that is here today for depression symptoms. Notes feeling down most days. He lost his 3 years ago. Unable to physically do his hobbies-trap shooting and golf. He does have good family and social support. Goes to synagogue. Denies SIHI. He was previously on Prozac 20 mg, but tells me he taking that as needed. And son tells me he hasn't refilled that since the first 90 day supply this summer. Not taking regularly, if at all. He reports he did tolerate well. 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 amLODIPine (NORVASC) 5 mg tablet Take 1 tablet by mouth once daily. folic acid 1 mg tablet Take 1 tablet by mouth once daily. potassium chloride ER (KLOR-CON) 20 mEq tablet Take 1 tablet by mouth once daily. FLUoxetine (PROZAC) 20 mg capsule Take 1 capsule by mouth once daily. Calcium Citrate 250 mg calcium tab Take 1 tablet by mouth once daily. Cholecalciferol, Vitamin D3, (VITAMIN D) 25 mcg (1,000 unit) cap Take 1 capsule by mouth once daily. aspirin (CHILDRENS ASPIRIN) 81 mg chewable tablet Take 1 tablet by mouth once daily. Fwjiijtxqkbio-Wdazzkor-Aufptw (CENTRUM SILVER) tab Take 1 tablet by mouth once daily. FLUoxetine (PROZAC) 10 mg capsule Take 1 capsule by mouth once daily. losartan (COZAAR) 100 mg tablet Take 1 tablet by mouth once daily. No current facility-administered medications for this visit. SOCIAL HISTORY Social History Tobacco Use Smoking status: Former Current packs/day: 0.00 Average packs/day: 1 pack/day for 12.0 years (12.0 ttl pk-yrs) Types: Cigarettes Start date: 1952 Quit date: 09/27/1964 (more content not included)... [facility] 10-17-2024 History of Present illness Narrative Images from the original note were not included. Isaias Slaughter is a 89 year old male here for a Medicare wellness visit. Medicare Health Risk Assessment General Health Overall well Exercise: Minutes/Day Squats, light free weights, marching in place and toe lifts Exercise: Days/Week 7 days a week Alcohol: Daily Use none Alcohol: Drinks/Day none Alcohol: 6 or more drinks none Feel off balance Occasionally feels a little unsteady. No recent falls. Carpet in the home, no rugs. Concerns: Teeth/Dentures none Concerns: Sexual function none Troubled by feelings Had been on prozac 20 mg, not takig consistently. Frequency: Eating healthy diet yes ADLs requiring help none Safety precautions in home/vehicle Driving, doesn't always wear seatbelt Smoke, vape, chews tobacco None Difficulty hearing Has [facility] Needs to change the batteries Difficulty seeing Has not been seen for 2-3 years Current Providers Specialists: I have reviewed specialist-related care of the patient in the medical record. Follows with Dr. 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 Dermatology-[facility] Medical/Family history review Reviewed and updated problem list, medical/surgical/family/social history, medications, and allergies. Opioid use review Opioid Medications (last 90 days) No data to display Anxiety/Depression screening Recommendation: continuing current treatment plan Restart prozac, taking daily. Cognitive screening Mini Cog Score: 5 Cognitive screening reviewed and No further action needed (score 3-5). Functional Observation Was the patient's Timed Up & Go test unsteady or >= 12 seconds? No Advance Care Planning Surrogate decision maker and/or advance care plan documented Measurements BP 138/74 Pulse 72 Ht 165 cm (5' 4.96) Wt 75.8 kg (167 lb 1.3 oz) SpO2 96% BMI 27.84 kg/m Vision Screening: Hearing/vision screening results: Patient will schedule with [facility]. Assessment/Plan Medicare annual wellness visit, subsequent (Z00.00) - Counseled on healthy diet and regular exercise - Fall avoidance information provided - Personalized prevention plan provided Stanley Mckeon PA-C 10/17/2024 10/17/2024 Patient presents with: Medicare Wellness Exam Patient also notes feeling down. SUBJECTIVE: This is a 89 year old that is here today for depression symptoms. Notes feeling down most days. He lost his 3 years ago. Unable to physically do his hobbies-trap shooting and golf. He does have good family and social support. Goes to synagogue. Denies SIHI. He was previously on Prozac 20 mg, but tells me he taking that as needed. And son tells me he hasn't refilled that since the first 90 day supply this summer. Not taking regularly, if at all. He reports he did tolerate well. 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 amLODIPine (NORVASC) 5 mg tablet Take 1 tablet by mouth once daily. folic acid 1 mg tablet Take 1 tablet by mouth once daily. potassium chloride ER (KLOR-CON) 20 mEq tablet Take 1 tablet by mouth once daily. FLUoxetine (PROZAC) 20 mg capsule Take 1 capsule by mouth once daily. Calcium Citrate 250 mg calcium tab Take 1 tablet by mouth once daily. Cholecalciferol, Vitamin D3, (VITAMIN D) 25 mcg (1,000 unit) cap Take 1 capsule by mouth once daily. aspirin (CHILDRENS ASPIRIN) 81 mg chewable tablet Take 1 tablet by mouth once daily. Fcobkqxnpjobk-Pnoehwme-Icksas (CENTRUM SILVER) tab Take 1 tablet by mouth once daily. FLUoxetine (PROZAC) 10 mg capsule Take 1 capsule by mouth once daily. losartan (COZAAR) 100 mg tablet Take 1 tablet by mouth once daily. No current facility-administered medications for this visit. SOCIAL HISTORY Social History Tobacco Use Smoking status: Former Current packs/day: 0.00 Average packs/day: 1 pack/day for 12.0 years (12.0 ttl pk-yrs) Types: Cigarettes Start date: 1953 Quit date: 09/27/1964 Years since quittin.0 Smokeless tobacco: Never Tobacco comments: ETS: Father smoked in childhood home, then quit. Spouse non-smoker. Vaping Use Vaping status: Never Used Substance Use Topics Alcohol use: Yes Comment: rare Drug use: No REVIEW OF SYSTEMS See HPI OBJECTIVE: BP 138/74 Pulse 72 Ht 165 cm (5' 4.96) Wt 75.8 kg (167 lb 1.3 oz) SpO2 96% BMI 27.84 kg/m APPEARANCE Well appearing, alert, in no acute distress, well-hydrated, well nourished. Smiling for a majority of the visit. Teary when discussing . ASSESSMENT/PLAN: 1. Essential thrombocytosis (HCC) - ICD9: 238.71, ICD10: D47.3 (primary diagnosis) Follows with heme/onc 2. 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 Stage 3a chronic kidney disease (HCC) - ICD9: 585.3, ICD10: N18.31 - eGFR: 65 Stable - Counseled on avoiding NSAIDs, adequate hydration - Counseled on low sodium diet 4. Depression, unspecified depression type - ICD9: 311, ICD10: F32.A Restart with 10 mg x 2 weeks, then go back to 20 mg once daily. Not to taking as needed. Reviewed with son and patient with understanding. - FLUOXETINE 10 MG CAPSULE 5. Essential hypertension - ICD9: 401.9, ICD10: I10 - Controlled - Recommend home blood pressure monitoring, to bring results to next visit - Encouraged sodium restriction, DASH or Mediterranean diet - Recommend regular aerobic exercise - LOSARTAN 100 MG TABLET Stanley Mckeon PA-C VISUAL ACUITY: Today's exam: Vision Correction? Glasses: RIGHT EYE: 20/50 LEFT EYE: 20/ 50 BOTH EYES: 20/50 documented in this encounter [facility] 10-17-2024 Instructions Stanley Mckeon PA-C - 10/17/2024 11:15 AM EST Screening schedule The following prevention plan is recommended: Depression Screening Never done Anxiety Screening Never done DTaP,Tdap,Td Vaccine(1 - Tdap) Never done Shingrix Vaccine(1 of 2) Never done RSV Vaccine(1 - 1-dose 75+ series) Never done LDL Cholesterol due on 02/25/2021 Influenza Vaccine(1) due on 05/28/2024 Covid-19 Vaccine( season) due on 05/28/2024 Advance Directive Discussion Never done WHAT YOU CAN DO TO PREVENT FALLS Many falls can be prevented. By making some changes, you can lower your chances of falling. Four things YOU can do to prevent falls for you* and your caregiver 1. Begin a regular exercise program Exercise is one of the most important ways to lower your chances of falling. It makes you stronger and helps you feel better. Exercises that improve balance and coordination (like Jordan Chi) are the most helpful. Lack of exercise leads to weakness and increases your chances of falling. Ask your doctor or health care provider about the best type of exercise program for you. 2. Have your health care provider review your medicines Have your doctor or pharmacist review all the medicines you take, even ygft-yxp-dpbwwdb medicines. As you get older, the way medicines work in your body can change. Some medicines, or combinations of medicines, can make you sleepy or dizzy and can cause you to fall. 3. Have your vision checked Have your eyes checked by an eye doctor at least once a year. You may be wearing the wrong glasses or have a condition like glaucoma or cataracts that limits your vision. Poor vision can increase your chances of falling. 4. Make your home safer About half of all falls happen at home. To make your home safer: Remove things you can trip over (like papers, books, clothes, and shoes) from stairs and places where you walk. Remove small throw rugs or use double-sided tape to keep the rugs from slipping. Keep items you use often in cabinets you can reach easily without using a step stool. Have grab bars put in next to your toilet and in the tub or shower. Use non-slip mats in the bathtub and on shower floors. Improve the lighting in your home. As you get older, you need brighter lights to see well. Hang light-weight curtains or shades to reduce glare. Have handrails and lights put in on all staircases. Wear shoes both inside and outside the house. Avoid going barefoot or wearing slippers. For more information, contact: Centers for Disease Control and Prevention www.cdc.gov/injury * This information may not apply if you have certain medical conditions. documented in this encounter [facility] 10-17-2024 Note HNO ID: [id number] Author: KARLI SNOW LPN Service: ? Author Type: LICENSED NURSE Type: Progress Notes Filed: 10/17/2024 12:33 Note Text: VISUAL ACUITY: Today's exam: Vision Correction? Glasses: RIGHT EYE: 20/50 LEFT EYE: 20/ 50 BOTH EYES: 20/50 [facility] 10-12-2024 Telephone encounter Note Spoke with pt and Medicare Wellness was scheduled. Sabina Lyles LPN [facility] 10-12-2024 Miscellaneous Notes Spoke with pt and Medicare Wellness was scheduled. Sabina Lyles LPN Patient has not been seen in over a year. Needs seen for further refills. Thank you Chel Rich APRN.ACQUISITIONS ASSISTANT Patient has been identified by name and date of : Yes Patient phones for refill(s): Requested Prescriptions Pending Prescriptions Disp Refills losartan (COZAAR) 100 mg tablet 90 tablet 1 Sig: Take 1 tablet by mouth once daily. Date of last office visit in primary care: 07/16/2023 Date of next office visit in primary care: Visit date not found Please advise. Thank you. Angela Brown LPN. documented in this encounter [facility] 10-11-2024 Telephone encounter Note Patient has not been seen in over a year. Needs seen for further refills. Thank you Chel Rich APRN.ACQUISITIONS ASSISTANT [facility] 10-10-2024 Telephone encounter Note Patient has been identified by name and date of : Yes Patient phones for refill(s): Requested Prescriptions Pending Prescriptions Disp Refills losartan (COZAAR) 100 mg tablet 90 tablet 1 Sig: Take 1 tablet by mouth once daily. Date of last office visit in primary care: 07/16/2023 Date of next office visit in primary care: Visit date not found Please advise. Thank you. Angela Brown LPN. [facility] 10-04-2024 Telephone encounter Note Patient has been identified by name and date of : Yes, Provider Date 10/04/24 Time 9:35 am Pharmacy- phones for refill(s): Requested Prescriptions Pending Prescriptions Disp Refills enzalutamide (XTANDI) 40 mg tablet 60 tablet 11 Sig: Take 2 tablets (80 mg) by mouth once daily. Date of last office visit in primary care: Visit date not found Date of next office visit in primary care: 10/19/2024 Pharmacy stated that to start the re enrolment process this RX needs sent to the [facility] patient solutions pharmacy and then they will transfer the RX to the request pharmacy, being [facility] out of [place], [place] Please advise. Thank you. Sierra Augustin. [facility] 10-04-2024 Miscellaneous Notes Patient has been identified by name and date of : Yes, Provider Date 10/04/24 Time 9:35 am Pharmacy- phones for refill(s): Requested Prescriptions Pending Prescriptions Disp Refills enzalutamide (XTANDI) 40 mg tablet 60 tablet 11 Sig: Take 2 tablets (80 mg) by mouth once daily. Date of last office visit in primary care: Visit date not found Date of next office visit in primary care: 10/19/2024 Pharmacy stated that to start the re enrolment process this RX needs sent to the [facility] and then they will transfer the RX to the request pharmacy, being [facility] out of [place], [place] Please advise. Thank you. Sierra Augustin. documented in this encounter [facility] 09-29-2024 Telephone encounter Note Prescription Refill Information The patient has been identified by name and date of : Yes Caregiver verified no other encounters exist for this prescription request: Yes Caregiver confirmed with patient/requestor that no other refills are due, in the near future, with this provider at this time: Yes The last office visit in the department: 07/27/2024 Does the patient have a future office visit with this provider/department: Yes Requested Prescriptions Pending Prescriptions Disp Refills enzalutamide (XTANDI) 40 mg tablet 60 tablet 11 Sig: Take 2 tablets (80 mg) by mouth once daily. Danielle Caicedo LPN September 29, 2024 11:12 AM [facility] 09-29-2024 Miscellaneous Notes Prescription Refill Information The patient has been identified by name and date of : Yes Caregiver verified no other encounters exist for this prescription request: Yes Caregiver confirmed with patient/requestor that no other refills are due, in the near future, with this provider at this time: Yes The last office visit in the department: 07/27/2024 Does the patient have a future office visit with this provider/department: Yes Requested Prescriptions Pending Prescriptions Disp Refills enzalutamide (XTANDI) 40 mg tablet 60 tablet 11 Sig: Take 2 tablets (80 mg) by mouth once daily. Danielle Caicedo LPN September 29, 2024 11:12 AM documented in this encounter [facility] 07-31-2024 Telephone encounter Note Prescription Refill Information The patient has been identified by name and date of : Yes Caregiver verified no other encounters exist for this prescription request: Yes Caregiver confirmed with patient/requestor that no other refills are due, in the near future, with this provider at this time: Yes The last office visit in the department: 07/16/23 Does the patient have a future office visit with this provider/department: Yes Requested Prescriptions Pending Prescriptions Disp Refills amLODIPine (NORVASC) 5 mg tablet 90 tablet 3 Sig: Take 1 tablet by mouth once daily. Rosy Flores MA July 31, 2024 9:42 AM [facility] 07-31-2024 Miscellaneous Notes Prescription Refill Information The patient has been identified by name and date of : Yes Caregiver verified no other encounters exist for this prescription request: Yes Caregiver confirmed with patient/requestor that no other refills are due, in the near future, with this provider at this time: Yes The last office visit in the department: 07/16/23 Does the patient have a future office visit with this provider/department: Yes Requested Prescriptions Pending Prescriptions Disp Refills amLODIPine (NORVASC) 5 mg tablet 90 tablet 3 Sig: Take 1 tablet by mouth once daily. Rosy Flores MA July 31, 2024 9:42 AM documented in this encounter [facility] 07-28-2024 Telephone encounter Note Call to patient, no answer, left detailed message with PSA value. PSA 07/27/24 <0.02 Instructed to call back in if any further questions about labs. Hayley Kim RN [facility] Work Phone: 07-28-2024 Miscellaneous Notes Call to patient, no answer, left detailed message with PSA value. PSA 07/27/24 <0.02 Instructed to call back in if any further questions about labs. Hayley Julio, RN Patient calling for 07/27 lab results documented in this encounter [facility] 07-28-2024 Telephone encounter Note Patient calling for 07/27 lab results [facility] Work Phone: 07-27-2024 Nurse Note Eligard injection administered, right lower abd, tolerated well, no immediate adverse reactions noted. See office notes Danielle Caicedo LPN [facility] 07-27-2024 Nurse Note Eligard injection administered, right lower abd, tolerated well, no immediate adverse reactions noted. See office notes Danielle Caicedo LPN documented in this encounter [facility] 07-27-2024 Note HNO ID: [id number] Author: ELLIOTT SYLVESTER MD Service: ? 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 Oncological history: Lung cancer--He underwent a right lower lobectomy along with mediastinal lymph node dissection. Surgery was performed on 02/21/14. 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 The tumor was 5 x 4.2 x 1.8 cm in size. There was no evidence of any pleural involvement. No evidence of any lymphovascular invasion identified. There was no evidence of any perineural invasion. The patient had no evidence of any mediastinal lymph node metastasis by this tumor. The right 10R was positive for metastasis the the phenotyping was different from the lung cancer. The lymph node showed a staining pattern consistent with adenocarcinoma of prostatic primary. This was positive for PSA, positive for prostate-specific membrane antigen as well as the prostatic acid phosphatase. The adenocarcinoma was diffusely positive for synaptophysin and focally positive for chromogranin highlighting a neuroendocrine differentiating pattern. Prostate cancer; history of prostate cancer ( Lillian score 6- 7 ). This was organ confined and was treated with external beam radiation. The patient had a PSA level checked which was reported at 0.28. 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 Complained of severe muscle aches and pain, fatigue and weight loss after treatment started. Bladder cancer; history of multiple superficial bladder cancers. These have been removed through a TURB. Cystoscopy recently was positive for low-grade papillary carcinoma. Previous treatment: Lupron/abiraterone/prednisone. Zytiga became cost prohibitive. Current treatment: Lupron/ Xtandi 80 mg daily TURBT 01/29/2023-- -Extensive, endoscopically unresectable papillary tumor contiguously extending from right mid-ureter to UVJ, circumferential around ureter. -Approximately 10 superficial low grade appearing bladder tumors up to 1cm in size and a 2cm partially obstructing papillary tumor at the right ureteral orifice -1mm bulbar urethral lesions, possible tumor. -Severely dilated, torturous right ureter on retrograde pyelogram with severe hydro Pathology: Bladder, transurethral resection of tumor: -Noninvasive papillary urothelial carcinoma, predominantly low-grade with focal high-grade features. -Muscularis propria is not present for evaluation. Presents for ongoing oncologic management. 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 Increased aspirin 81 mg twice daily. No unusual bleeding or unexplained bruising. Taking 80 mg enzalutamide since May 2023 due to feeling poorly on 160 mg. 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 Continue xtandi 80 mg daily pending PSA 2. Lupron(eligard) today, every 3 months 3. See back 3 months, chest x ray at that visit 4. Referral to dermatology re forehead lesion Written and verbal health teaching given to patient, patient verbalizes understanding and agrees with treatment plan. 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 Malignant 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 (HCC) Malignant neoplasm of urinary bladder (HCC) Other and unspecified hyperlipidemia Hyperlipidemia PERS HX SKIN MALIGNANCY NEC 11/08/2006 Ureteral cancer (HCC) PAST SURGICAL HISTORY Procedure Laterality Date ANES TRANSURETHRAL RESECTION OF BLADDER TUMOR 2012 ANES TRANSURETHRAL RESECTION OF BLADDER TUMOR 2010 APPENDECTOMY 194 BLADDER BIOSPY FULGUR 2018 CARDIAC 2013 stent to RCA CATARACT EXTRACTION W/ INTRAOCULAR LENS IMPLANT HX Right COLON SURGERY HX 2019 COLONOSCOPY FLX DX W/COLLJ SPEC WHEN PFRMD 08/25/2012 Colonoscopy report 5 years COLSC FLX W/RM (more content not included)... [facility] 07-27-2024 History of Present illness Narrative (Elements copied from my note dated August 26, 2023, have been reviewed and updated where appropriate, and all reflect current assessment and medical decision making from today's encounter, July 27, 2024) HISTORY OF PRESENT ILLNESS: Isaias Slaughter is a 88 year old male with history of lung cancer, bladder cancer and 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 Oncological history: Lung cancer--He underwent a right lower lobectomy along with mediastinal lymph node dissection. Surgery was performed on 02/21/14. 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 The tumor was 5 x 4.2 x 1.8 cm in size. There was no evidence of any pleural involvement. No evidence of any lymphovascular invasion identified. There was no evidence of any perineural invasion. The patient had no evidence of any mediastinal lymph node metastasis by this tumor. The right 10R was positive for metastasis the the phenotyping was different from the lung cancer. The lymph node showed a staining pattern consistent with adenocarcinoma of prostatic primary. This was positive for PSA, positive for prostate-specific membrane antigen as well as the prostatic acid phosphatase. The adenocarcinoma was diffusely positive for synaptophysin and focally positive for chromogranin highlighting a neuroendocrine differentiating pattern. Prostate cancer; history of prostate cancer ( Lillian score 6- 7 ). This was organ confined and was treated with external beam radiation. The patient had a PSA level checked which was reported at 0.28. 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 Complained of severe muscle aches and pain, fatigue and weight loss after treatment started. Bladder cancer; history of multiple superficial bladder cancers. These have been removed through a TURB. Cystoscopy recently was positive for low-grade papillary carcinoma. Previous treatment: Lupron/abiraterone/prednisone. Zytiga became cost prohibitive. Current treatment: Lupron/ Xtandi 80 mg daily TURBT 01/29/2023-- -Extensive, endoscopically unresectable papillary tumor contiguously extending from right mid-ureter to UVJ, circumferential around ureter. -Approximately 10 superficial low grade appearing bladder tumors up to 1cm in size and a 2cm partially obstructing papillary tumor at the right ureteral orifice -1mm bulbar urethral lesions, possible tumor. -Severely dilated, torturous right ureter on retrograde pyelogram with severe hydro Pathology: Bladder, transurethral resection of tumor: -Noninvasive papillary urothelial carcinoma, predominantly low-grade with focal high-grade features. -Muscularis propria is not present for evaluation. Presents for ongoing oncologic management. 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 Increased aspirin 81 mg twice daily. No unusual bleeding or unexplained bruising. Taking 80 mg enzalutamide since May 2023 due to feeling poorly on 160 mg. 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 Continue xtandi 80 mg daily pending PSA 2. Lupron(eligard) today, every 3 months 3. See back 3 months, chest x ray at that visit 4. Referral to dermatology re forehead lesion Written and verbal health teaching given to patient, patient verbalizes understanding and agrees with treatment plan. 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 Malignant 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 (HCC) Malignant neoplasm of urinary bladder (HCC) Other and unspecified hyperlipidemia Hyperlipidemia PERS HX SKIN MALIGNANCY NEC 11/08/2006 Ureteral cancer (HCC) PAST SURGICAL HISTORY Procedure Laterality Date ANES TRANSURETHRAL RESECTION OF BLADDER TUMOR 2012 ANES TRANSURETHRAL RESECTION OF BLADDER TUMOR 2010 APPENDECTOMY 194 BLADDER BIOSPY FULGUR 2018 CARDIAC 2013 stent to RCA CATARACT EXTRACTION W/ INTRAOCULAR LENS IMPLANT HX Right COLON SURGERY HX 2019 COLONOSCOPY FLX DX W/COLLJ SPEC WHEN PFRMD 08/25/2012 Colonoscopy report 5 years COLSC FLX W/RMVL OF TUMOR POLYP LESION SNARE TQ 12/30/2006 CYSTOSCOPY,+URETEROSCOPY Right 03/2021 CYSTOURETHROSCOPY,FULGUR .5-2CM LESN 01/2021 CYSTOURETHROSCOPY,FULGUR .5-2CM LESN 2011 EGD REMOVAL TUMOR POLYP/OTHER LESION SNARE TECH 02/2022 done at [facility] PAST SURGICAL HISTORY OF 2001 TURB BLADDER CANCER PAST SURGICAL HISTORY OF 2013 cardiac stent x1 RMVL LUNG OTHER THAN PNEUMONECTOMY 1 LOBE LOBECT 02/21/2014 Mediastinoscopy, right posterolateral thoracotomy, right lower lobectomy, lymphadenectomy, rib blocks RPR 1ST INGUN HRNA AGE 6 YRS/> REDUCIBLE Left 03/19/2017 SIGMOIDOSCOPY FLX DX W/COLLJ SPEC BR/WA IF PFRMD Sigmoidoscopy TONSILLECTOMY PRIMARY/SECONDARY <AGE 13 Tonsillectomy FAMILY HISTORY Problem Relation Age of Onset Heart Mother Heart Father Ischemic Heart Disease Father Hypertension Brother Lipids Brother None No Family History No lung disease. Social History Tobacco Use Smoking status: Former Current packs/day: 0.00 Average packs/day: 1 pack/day for 12.0 years (12.0 ttl pk-yrs) Types: Cigarettes Start date: 1953 Quit date: 09/27/1964 Years since quittin.8 Smokeless tobacco: Never Tobacco comments: ETS: Father smoked in childhood home, then quit. Spouse non-smoker. Vaping Use Vaping status: Never Used Substance Use Topics Alcohol use: Yes Comment: rare Drug use: No ALLERGIES: ALLERGIES Allergen Reactions Amoxicillin Diarrhea, GI Upset Patient cannot tolerate this medication Lisinopril Cough Rxpbevn-Qbe-Nde Red* Other: See Comments Patient states he will not take statins because of what they did to his . CURRENT OUTPATIENT MEDICATIONS: potassium chloride ER (KLOR-CON) 20 mEq tablet^Take 1 tablet by mouth once daily.^Disp: 90 tablet^Rfl: 3 FLUoxetine (PROZAC) 20 mg capsule^Take 1 capsule by mouth once daily.^Disp: 90 capsule^Rfl: 3 losartan (COZAAR) 100 mg tablet^Take 1 tablet by mouth once daily.^Disp: 90 tablet^Rfl: 1 enzalutamide (XTANDI) 40 mg tablet^Take 2 tablets (80 mg) by mouth once daily.^Disp: 60 tablet^Rfl: 11 amLODIPine (NORVASC) 5 mg tablet^Take 1 tablet by mouth once daily.^Disp: 90 tablet^Rfl: 3 folic acid 1 mg tablet^Take 1 tablet by mouth once daily.^Disp: 100 tablet^Rfl: 3 Calcium Citrate 250 mg calcium tab^Take 1 tablet by mouth once daily.^Disp: ^Rfl: Cholecalciferol, Vitamin D3, (VITAMIN D) 25 mcg (1,000 unit) cap^Take 1 capsule by mouth once daily.^Disp: 100 capsule^Rfl: 2 aspirin (CHILDRENS ASPIRIN) 81 mg chewable tablet^Take 1 tablet by mouth once daily.^Disp: ^Rfl: 0 Owzmhhjweiogm-Ikukibwe-Tddhml (CENTRUM SILVER) tab^Take 1 tablet by mouth once daily.^Disp: ^Rfl: REVIEW OF SYSTEMS: GENERAL: No fever, night sweats, weight loss or malaise. All other reviewed and negative other than HPI. PHYSICAL EXAMINATION: VITAL SIGNS: BP 161/72 Pulse 71 Temp (Src) 97.3 (Temporal) Wt 168 lb (76.2kg) SpO2 98% GENERAL APPEARANCE: Well appearing, in no acute distress, alert and oriented x3, well-hydrated, well nourished. I spent a total of 30 minutes on the date of the service which included preparing to see the patient, [id number]-[id number] patient care, completing clinical documentation, obtaining and/or reviewing separately obtained history, counseling and educating the patient/family/caregiver, ordering medications, tests, or procedures, independently interpreting results (not separately reported), and communicating results to the patient/family/caregiver. Electronically Signed: Elliott Sylvester MD July 27, 2024 documented in this encounter [facility] 05-22-2024 Telephone encounter Note Patient has been identified by name and date of : Yes Patient phones for refill(s): Requested Prescriptions Pending Prescriptions Disp Refills potassium chloride ER (KLOR-CON) 20 mEq tablet 90 tablet 3 Sig: Take 1 tablet by mouth once daily. Date of last office visit in primary care: 08/19/2023 Date of next office visit in primary care: Visit date not found Please advise. Thank you. Angela Brown LPN. [facility] 05-22-2024 Miscellaneous Notes Patient has been identified by name and date of : Yes Patient phones for refill(s): Requested Prescriptions Pending Prescriptions Disp Refills potassium chloride ER (KLOR-CON) 20 mEq tablet 90 tablet 3 Sig: Take 1 tablet by mouth once daily. Date of last office visit in primary care: 08/19/2023 Date of next office visit in primary care: Visit date not found Please advise. Thank you. Angela Brown LPN. Patient has been identified by name and date of : Yes, Provider Tello Date 05/22/2024 Time 9:11 am Patient phones for refill(s): Requested Prescriptions Pending Prescriptions Disp Refills potassium chloride ER (KLOR-CON) 20 mEq tablet 90 tablet 3 Sig: Take 1 tablet by mouth once daily. Date of last office visit in primary care: Visit date not found Date of next office visit in primary care: Visit date not found Please advise. Thank you. Gail Sung. documented in this encounter [facility] 05-22-2024 Telephone encounter Note Patient has been identified by name and date of : Yes, Provider Tello Date 05/22/2024 Time 9:11 am Patient phones for refill(s): Requested Prescriptions Pending Prescriptions Disp Refills potassium chloride ER (KLOR-CON) 20 mEq tablet 90 tablet 3 Sig: Take 1 tablet by mouth once daily. Date of last office visit in primary care: Visit date not found Date of next office visit in primary care: Visit date not found Please advise. Thank you. Gail Sung. [facility] 2024 Telephone encounter Note Prescription Refill Information The patient has been identified by name and date of : Yes Caregiver verified no other encounters exist for this prescription request: Yes Caregiver confirmed with patient/requestor that no other refills are due, in the near future, with this provider at this time: Yes The last office visit in the department: 05/04/2024 Does the patient have a future office visit with this provider/department: Yes Requested Prescriptions Pending Prescriptions Disp Refills FLUoxetine (PROZAC) 20 mg capsule [Pharmacy Med Name: fluoxetine 20 mg capsule] 30 capsule 5 Sig: take 1 capsule by mouth once daily. Danielle Caicedo LPN 2024 7:56 AM [facility] 2024 Miscellaneous Notes Prescription Refill Information The patient has been identified by name and date of : Yes Caregiver verified no other encounters exist for this prescription request: Yes Caregiver confirmed with patient/requestor that no other refills are due, in the near future, with this provider at this time: Yes The last office visit in the department: 05/04/2024 Does the patient have a future office visit with this provider/department: Yes Requested Prescriptions Pending Prescriptions Disp Refills FLUoxetine (PROZAC) 20 mg capsule [Pharmacy Med Name: fluoxetine 20 mg capsule] 30 capsule 5 Sig: take 1 capsule by mouth once daily. Danielle Caicedo LPN 2024 7:56 AM documented in this encounter [facility] 05-04-2024 Nurse Note For all other information regarding today, see today's OV note with Abigail Saavedra DINKEY OPERATOR SLATE. Winter Hawkins LPN [facility] 05-04-2024 Nurse Note For all other information regarding today, see today's OV note with Abigail Saavedra DINKEY OPERATOR [employer]. Winter Hawkins LPN Pt here for injection of Eligard. Given SQ in LLQ. Pt tolerated well. Winter Hawkins LPN documented in this encounter [facility] 05-04-2024 Nurse Note Pt here for injection of Eligard. Given SQ in LLQ. Pt tolerated well. Winter Hawkins LPN [facility] 05-04-2024 History of Present illness Narrative Isaias Slaughter 1935 05/04/2024 HISTORY OF PRESENT ILLNESS: Isaias Slaughter is a 88 year old male with history of lung cancer, bladder cancer and 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 Oncological history: Lung cancer--He underwent a right lower lobectomy along with mediastinal lymph node dissection. Surgery was performed on 02/21/14. 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 The tumor was 5 x 4.2 x 1.8 cm in size. There was no evidence of any pleural involvement. No evidence of any lymphovascular invasion identified. There was no evidence of any perineural invasion. The patient had no evidence of any mediastinal lymph node metastasis by this tumor. The right 10R was positive for metastasis the the phenotyping was different from the lung cancer. The lymph node showed a staining pattern consistent with adenocarcinoma of prostatic primary. This was positive for PSA, positive for prostate-specific membrane antigen as well as the prostatic acid phosphatase. The adenocarcinoma was diffusely positive for synaptophysin and focally positive for chromogranin highlighting a neuroendocrine differentiating pattern. Prostate cancer; history of prostate cancer ( Lillian score 6- 7 ). This was organ confined and was treated with external beam radiation. The patient had a PSA level checked which was reported at 0.28. 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 Complained of severe muscle aches and pain, fatigue and weight loss after treatment started. Bladder cancer; history of multiple superficial bladder cancers. These have been removed through a TURB. Cystoscopy recently was positive for low-grade papillary carcinoma. Previous treatment: Lupron/abiraterone/prednisone. Zytiga became cost prohibitive. Current treatment: Lupron/ Xtandi 80 mg daily (was off for 6 days, shipping delay) TURBT 01/29/2023-- -Extensive, endoscopically unresectable papillary tumor contiguously extending from right mid-ureter to UVJ, circumferential around ureter. -Approximately 10 superficial low grade appearing bladder tumors up to 1cm in size and a 2cm partially obstructing papillary tumor at the right ureteral orifice -1mm bulbar urethral lesions, possible tumor. -Severely dilated, torturous right ureter on retrograde pyelogram with severe hydro Pathology: Bladder, transurethral resection of tumor: -Noninvasive papillary urothelial carcinoma, predominantly low-grade with focal high-grade features. -Muscularis propria is not present for evaluation. Presents for ongoing oncologic management. 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 Increased aspirin 81 mg twice daily. No unusual bleeding or unexplained bruising. Taking 80 mg enzalutamide since May 2023 due to feeling poorly on 160 mg. Feels much better on 80 mg daily Interval History: Mr. Slaughter presents today for follow up on xtandi. He reports that he has been doing well on current treatment. Now has medications on hand, no further shipping issues. Denies hot flashes, NS. No recent illnesses or hospitalizations. Denies new aches or pains. No SOB, CP, or palpitations. Denies cough. No SERRATO, dizziness, or changes in vision. Denies N/V/C/D. No changes in bowel or bladder habits. Denies hematuria, dysuria, nocturia, hematochezia, hemoptysis. No rash or skin changes. Denies bleeding or bruising. No edema. Discussed ok to take Vit D. 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) No date: Malignant 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 (HCC) No date: Malignant neoplasm of urinary bladder (HCC) No date: Other and unspecified hyperlipidemia Comment: Hyperlipidemia 11/08/2006: PERS HX SKIN MALIGNANCY NEC No date: Ureteral cancer (HCC) PAST SURGICAL HISTORY 2013: ANES TRANSURETHRAL RESECTION OF BLADDER TUMOR 2011: ANES TRANSURETHRAL RESECTION OF BLADDER TUMOR 1946: APPENDECTOMY 2018: BLADDER BIOSPY FULGUR 2013: CARDIAC Comment: stent to RCA No date: CATARACT EXTRACTION W/ INTRAOCULAR LENS IMPLANT HX; Right 2020: COLON SURGERY HX 08/25/2012: COLONOSCOPY FLX DX W/COLLJ SPEC WHEN PFRMD Comment: Colonoscopy report 5 years 12/30/2006: COLSC FLX W/RMVL OF TUMOR POLYP LESION SNARE TQ 03/2021: CYSTOSCOPY,+URETEROSCOPY; Right 01/2021: CYSTOURETHROSCOPY,FULGUR .5-2CM LESN 2012: CYSTOURETHROSCOPY,FULGUR .5-2CM LESN 02/2022: EGD REMOVAL TUMOR POLYP/OTHER LESION SNARE TECH Comment: done at [facility] 2002: PAST SURGICAL HISTORY OF Comment: TURB BLADDER CANCER 2014: PAST SURGICAL HISTORY OF Comment: cardiac stent x1 02/21/2014: RMVL LUNG OTHER THAN PNEUMONECTOMY 1 LOBE LOBECT Comment: Mediastinoscopy, right posterolateral thoracotomy, right lower lobectomy, lymphadenectomy, rib blocks 03/19/2017: RPR 1ST INGUN HRNA AGE 6 YRS/> REDUCIBLE; Left No date: SIGMOIDOSCOPY FLX DX W/COLLJ SPEC BR/WA IF PFRMD Comment: Sigmoidoscopy No date: TONSILLECTOMY PRIMARY/SECONDARY <AGE 13 Comment: Tonsillectomy FAMILY HISTORY Problem Relation Age of Onset Heart Mother Heart Father Ischemic Heart Disease Father Hypertension Brother Lipids Brother None No Family History No lung disease. Social History Tobacco Use Smoking status: Former Packs/day: 1.00 Years: 12.00 Additional pack years: 0.00 Total pack years: 12.00 Types: Cigarettes Start date: 1953 Quit date: 09/27/1964 Years since quittin.6 Smokeless tobacco: Never Tobacco comments: ETS: Father smoked in childhood home, then quit. Spouse non-smoker. Vaping Use Vaping Use: Never used Substance Use Topics Alcohol use: Yes Comment: rare Drug use: No ALLERGIES: ALLERGIES Allergen Reactions Amoxicillin Diarrhea, GI Upset Patient cannot tolerate this medication Lisinopril Cough Nkkcblm-Fva-Rzo Red* Other: See Comments Patient states he will not take statins because of what they did to his . CURRENT OUTPATIENT MEDICATIONS: losartan (COZAAR) 100 mg tablet^Take 1 tablet by mouth once daily.^Disp: 90 tablet^Rfl: 1 FLUoxetine (PROZAC) 20 mg capsule^Take 1 capsule by mouth once daily.^Disp: 30 capsule^Rfl: 5 enzalutamide (XTANDI) 40 mg tablet^Take 2 tablets (80 mg) by mouth once daily.^Disp: 60 tablet^Rfl: 11 amLODIPine (NORVASC) 5 mg tablet^Take 1 tablet by mouth once daily.^Disp: 90 tablet^Rfl: 3 folic acid 1 mg tablet^Take 1 tablet by mouth once daily.^Disp: 100 tablet^Rfl: 3 potassium chloride ER (KLOR-CON) 20 mEq tablet^Take 1 tablet by mouth once daily.^Disp: 90 tablet^Rfl: 3 Calcium Citrate 250 mg calcium tab^Take 1 tablet by mouth once daily.^Disp: ^Rfl: Cholecalciferol, Vitamin D3, (VITAMIN D) 25 mcg (1,000 unit) cap^Take 1 capsule by mouth once daily.^Disp: 100 capsule^Rfl: 2 aspirin (CHILDRENS ASPIRIN) 81 mg chewable tablet^Take 1 tablet by mouth once daily.^Disp: ^Rfl: 0 Ikfnqwufeaday-Gukxdhwm-Mfoojf (CENTRUM SILVER) tab^Take 1 tablet by mouth once daily.^Disp: ^Rfl: REVIEW OF SYSTEMS: GENERAL: No fever, night sweats, weight loss or malaise. All other reviewed and negative other than HPI. All systems reviewed on 05/04/2024 with pertinent positives and negatives as outlined in the interval history. PHYSICAL EXAMINATION: VITAL SIGNS: BP 132/81 Pulse 75 Temp (Src) 97.3 (Temporal) Wt 166 lb (75.3kg) SpO2 96% GENERAL APPEARANCE: Well appearing, in no acute distress, alert and oriented x3, well-hydrated, well nourished. HEENT: Normocephalic, no sclera icterus, external ears normal Neck: Supple, no JVD. Chest: Clear bilaterally, no wheezes, not labored. Heart: Normal S1 and S2, no abnormal sounds Abdomen: Soft, nontender, nondistended Extremities: No edema Neurological: Grossly intact Skin: Warm and dry with no rashes or ulcerations. Hematologic: no bruising or petechiae. I have performed the physical exam today (05/04/2024) and have edited the note to correlate with current findings. Lab Results Component Value Date WBC 7.94 05/04/2024 HB 14.7 05/04/2024 MCV 92.6 05/04/2024 PLT 428 (H) 05/04/2024 Lab Results Component Value Date NA 136 03/03/2023 K 4.4 03/03/2023 CO2 26 03/03/2023 BUN 18 03/03/2023 CREAT 1.17 03/03/2023 TBILI 0.6 03/03/2023 TPROT 7.0 03/03/2023 ALB 4.7 03/03/2023 ALKPHOS 91 03/03/2023 ALT 7 (L) 03/03/2023 AST 12 (L) 03/03/2023 Lab Results Component Value Date PSA <0.02 02/10/2024 PSA <0.02 11/18/2023 PSA <0.02 08/26/2023 PSA <0.02 06/03/2023 PSA <0.02 03/03/2023 PSA <0.02 12/07/2022 PSA <0.02 09/16/2022 PSA <0.02 07/10/2022 PSA <0.02 06/19/2022 PSA <0.02 03/27/2022 CLINICAL IMPRESSION: Prostate cancer, on lupron, xtandi - labs remain stable - PSA pending today has remained undetectable. ET, baby asa, observing cbc, remains stable today Bladder cancer, history of multiple superficial bladder cancers. These have been removed through a TURB. - Continue to follow with urology, Remote history lung cancer, watching chest x ray, stable RECOMMENDATION/PLAN: 1. Continue xtandi 80 mg daily pending PSA 2. Lupron today - continue to follow CBC, CMP, PSA. RTC in 3 months with claus Beltran. Abigail Saavedra APRN.ACQUISITIONS ASSISTANT I spent >30 minutes in the visit, with more than 50% of the total iqdv-rp-hgcf time of the visit in counseling / coordination of care. Portions of this note including HPI, ROS, impression/plan may have been copied forward as to provide important historical information essential in contributing to medical decision making. Documentation has been reviewed and edited as necessary to support clinical decision making for today's visit and to reflect my own independent evaluation of this patient. documented in this encounter [facility] 04-10-2024 Telephone encounter Note Prescription Refill Information The patient has been identified by name and date of : Yes Caregiver verified no other encounters exist for this prescription request: Yes Caregiver confirmed with patient/requestor that no other refills are due, in the near future, with this provider at this time: Yes The last office visit in the department: 07/16/23 Does the patient have a future office visit with this provider/department: No Requested Prescriptions Pending Prescriptions Disp Refills losartan (COZAAR) 100 mg tablet 90 tablet 0 Sig: Take 1 tablet by mouth once daily. Karli Snow LPN April 10, 2024 8:59 AM [facility] 04-10-2024 Miscellaneous Notes Prescription Refill Information The patient has been identified by name and date of : Yes Caregiver verified no other encounters exist for this prescription request: Yes Caregiver confirmed with patient/requestor that no other refills are due, in the near future, with this provider at this time: Yes The last office visit in the department: 07/16/23 Does the patient have a future office visit with this provider/department: No Requested Prescriptions Pending Prescriptions Disp Refills losartan (COZAAR) 100 mg tablet 90 tablet 0 Sig: Take 1 tablet by mouth once daily. Karli Snow LPN April 10, 2024 8:59 AM documented in this encounter [facility] 02-10-2024 Telephone encounter Note Completed- patient stopped at desk. Leslie Marte LPN [facility] 02-10-2024 Miscellaneous Notes Completed- patient stopped at desk. Leslie Marte LPN Please contact patient to go over today's labs once they are resulted. Sailaja Sesay documented in this encounter [facility] 02-10-2024 Telephone encounter Note Please contact patient to go over today's labs once they are resulted. Sailaja Sesay [facility] 02-10-2024 Nurse Note Eligard injection administered, RLQ, tolerated well, no immediate adverse reactions noted. Danielle Caicedo LPN [facility] 02-10-2024 Nurse Note Eligard injection administered, RLQ, tolerated well, no immediate adverse reactions noted. Danielle Caicedo LPN documented in this encounter [facility] 01-10-2024 Miscellaneous Notes Patient has been identified by name and date of : No Patient phones for refill(s): Requested Prescriptions Pending Prescriptions Disp Refills losartan (COZAAR) 100 mg tablet 90 tablet 0 Sig: Take 1 tablet by mouth once daily. Date of last office visit in primary care: 07/16/2023 Date of next office visit in primary care: Visit date not found My chart message sent to patient to contact office to set up an appointment Please advise. Thank you. Ana Richardson LPN. documented in this encounter [facility] 12-29-2023 Miscellaneous Notes Faxed current med list to [facility], per [place] request. Reports patient is there and cannot remember what medications he takes. . Confirmation received. documented in this encounter [facility] 11-18-2023 Nurse Note Eligard injection administered, Left lower abd. tolerated well, no immediate adverse reactions noted. 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 Oncological history: Lung cancer--He underwent a right lower lobectomy along with mediastinal lymph node dissection. Surgery was performed on 02/21/14. 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 The tumor was 5 x 4.2 x 1.8 cm in size. There was no evidence of any pleural involvement. No evidence of any lymphovascular invasion identified. There was no evidence of any perineural invasion. The patient had no evidence of any mediastinal lymph node metastasis by this tumor. The right 10R was positive for metastasis the the phenotyping was different from the lung cancer. The lymph node showed a staining pattern consistent with adenocarcinoma of prostatic primary. This was positive for PSA, positive for prostate-specific membrane antigen as well as the prostatic acid phosphatase. The adenocarcinoma was diffusely positive for synaptophysin and focally positive for chromogranin highlighting a neuroendocrine differentiating pattern. Prostate cancer; history of prostate cancer ( Janis score 6- 7 ). This was organ confined and was treated with external beam radiation. The patient had a PSA level checked which was reported at 0.28. 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 Complained of severe muscle aches and pain, fatigue and weight loss after treatment started. Bladder cancer; history of multiple superficial bladder cancers. These have been removed through a TURB. Cystoscopy recently was positive for low-grade papillary carcinoma. Previous treatment: Lupron/abiraterone/prednisone. Zytiga became cost prohibitive. Current treatment: Lupron/ Xtandi 80 mg daily (was off for 6 days, shipping delay) TURBT 01/29/2023-- -Extensive, endoscopically unresectable papillary tumor contiguously extending from right mid-ureter to UVJ, circumferential around ureter. -Approximately 10 superficial low grade appearing bladder tumors up to 1cm in size and a 2cm partially obstructing papillary tumor at the right ureteral orifice -1mm bulbar urethral lesions, possible tumor. -Severely dilated, torturous right ureter on retrograde pyelogram with severe hydro Pathology: Bladder, transurethral resection of tumor: -Noninvasive papillary urothelial carcinoma, predominantly low-grade with focal high-grade features. -Muscularis propria is not present for evaluation. Presents for ongoing oncologic management. 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 Increased aspirin 81 mg twice daily. No unusual bleeding or unexplained bruising. Taking 80 mg enzalutamide since May 2023 due to feeling poorly on 160 mg. Feels much better on 80 mg daily Interval History: Mr. Slaughter presents today with his daughter for follow up on xtandi. He reports that he has been doing well on current treatment. Missed 6days due to a medication shipping delay, now has medications on hand. Denies hot flashes, NS. No recent illnesses or hospitalizations. Denies new aches or pains. No SOB, CP, or palpitations. Denies cough. No SERRATO, dizziness, or changes in vision. Denies N/V/C/D. No changes in bowel or bladder habits. Denies hematuria, dysuria, nocturia, hematochezia, hemoptysis. No rash or skin changes. Denies bleeding or bruising. No edema. 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 Malignant 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 (HCC) Malignant neoplasm of urinary bladder (HCC) Other and unspecified hyperlipidemia Hyperlipidemia PERS HX SKIN MALIGNANCY NEC 11/08/2006 Ureteral cancer (HCC) PAST SURGICAL HISTORY Procedure Laterality Date ANES TRANSURETHRAL RESECTION OF BLADDER TUMOR 2012 ANES TRANSURETHRAL RESECTION OF BLADDER TUMOR 2010 APPENDECTOMY 194 BLADDER BIOSPY FULGUR 2018 CARDIAC 2013 stent to RCA CATARACT EXTRACTION W/ INTRAOCULAR LENS IMPLANT HX Right COLON SURGERY HX 2019 COLONOSCOPY FLX DX W/COLLJ SPEC WHEN PFRMD 08/25/2012 Colonoscopy report 5 years COLSC FLX W/RMVL OF TUMOR POLYP LESION SNARE TQ 12/30/2006 CYSTOSCOPY,+URETEROSCOPY Right 03/2021 CYSTOURETHROSCOPY,FULGUR .5-2CM LESN 01/2021 CYSTOURETHROSCOPY,FULGUR .5-2CM LESN 2011 EGD REMOVAL TUMOR POLYP/OTHER LESION SNARE TECH 02/2022 done at [facility] PAST SURGICAL HISTORY OF 2001 TURB BLADDER CANCER PAST SURGICAL HISTORY OF 2013 cardiac stent x1 RMVL LUNG OTHER THAN PNEUMONECTOMY 1 LOBE LOBECT 02/21/2014 Mediastinoscopy, right posterolateral thoracotomy, right lower lobectomy, lymphadenectomy, rib blocks RPR 1ST INGUN HRNA AGE 6 YRS/> REDUCIBLE Left 03/19/2017 SIGMOIDOSCOPY FLX DX W/COLLJ SPEC BR/WA IF PFRMD Sigmoidoscopy TONSILLECTOMY PRIMARY/SECONDARY <AGE 13 Tonsillectomy FAMILY HISTORY Problem Relation Age of Onset Heart Mother Heart Father Ischemic Heart Disease Father Hypertension Brother Lipids Brother None No Family History No lung disease. Social History Tobacco Use Smoking status: Former Packs/day: 1.00 Years: 12.00 Additional pack years: 0.00 Total pack years: 12.00 Types: Cigarettes Start date: 1952 Quit date: 09/27/1964 Years since quittin.1 Smokeless tobacco: Never Tobacco comments: ETS: Father smoked in childhood home, then quit. Spouse non-smoker. Vaping Use Vaping Use: Never used Substance Use Topics Alcohol use: Yes Comment: rare Drug use: No ALLERGIES: ALLERGIES Allergen Reactions Amoxicillin Diarrhea, GI Upset Patient cannot tolerate this medication Lisinopril Cough Uzipqhf-Ysk-Ztp Red* Other: See Comments Patient states he will not take statins because of what they did to his . CURRENT OUTPATIENT MEDICATIONS: FLUoxetine (PROZAC) 20 mg capsule^Take 1 capsule by mouth once daily.^Disp: 30 capsule^Rfl: 5 enzalutamide (XTANDI) 40 mg tablet^Take 2 tablets (80 mg) by mouth once daily.^Disp: 60 tablet^Rfl: 11 losartan (COZAAR) 100 mg tablet^take 1 tablet by mouth once daily.^Disp: 90 tablet^Rfl: 0 amLODIPine (NORVASC) 5 mg tablet^Take 1 tablet by mouth once daily.^Disp: 90 tablet^Rfl: 3 folic acid 1 mg tablet^Take 1 tablet by mouth once daily.^Disp: 100 tablet^Rfl: 3 potassium chloride ER (KLOR-CON) 20 mEq tablet^Take 1 tablet by mouth once daily.^Disp: 90 tablet^Rfl: 3 Calcium Citrate 250 mg calcium tab^Take 1 tablet by mouth once daily.^Disp: ^Rfl: Cholecalciferol, Vitamin D3, (VITAMIN D) 25 mcg (1,000 unit) cap^Take 1 capsule by mouth once daily.^Disp: 100 capsule^Rfl: 2 aspirin (CHILDRENS ASPIRIN) 81 mg chewable tablet^Take 1 tablet by mouth once daily.^Disp: ^Rfl: 0 Rotuzvjyquihu-Shzranap-Sikxme (CENTRUM SILVER) tab^Take 1 tablet by mouth once daily.^Disp: ^Rfl: REVIEW OF SYSTEMS: GENERAL: No fever, night sweats, weight loss or malaise. All other reviewed and negative other than HPI. All systems reviewed on 11/18/2023 with pertinent positives and negatives as outlined in the interval history. PHYSICAL EXAMINATION: VITAL SIGNS: BP 144/73 Pulse 73 Temp 96.9 Wt 164 lb 8 oz (74.6kg) SpO2 93% GENERAL APPEARANCE: Well appearing, in no acute distress, alert and oriented x3, well-hydrated, well nourished. HEENT: Normocephalic, no sclera icterus, external ears normal Neck: Supple, no JVD. Chest: Clear bilaterally, no wheezes, not labored. Heart: Normal S1 and S2, no abnormal sounds Abdomen: Soft, nontender, nondistended Extremities: No edema Neurological: Grossly intact Skin: Warm and dry with no rashes or ulcerations. Hematologic: no bruising or petechiae. Psychiatric: Alert and oriented x3. Emotional well-being assessment was performed. Pt denies depression, distress, and or problems with coping or adjustment. I have performed the physical exam today (11/18/2023) and have edited the note to correlate with current findings. Lab Results Component Value Date WBC 7.40 11/18/2023 HB 15.4 11/18/2023 MCV 90.6 11/18/2023 PLT 482 (H) 11/18/2023 Lab Results Component Value Date NA 136 03/03/2023 K 4.4 03/03/2023 CO2 26 03/03/2023 BUN 18 03/03/2023 CREAT 1.17 03/03/2023 TBILI 0.6 03/03/2023 TPROT 7.0 03/03/2023 ALB 4.7 03/03/2023 ALKPHOS 91 03/03/2023 ALT 7 (L) 03/03/2023 AST 12 (L) 03/03/2023 Lab Results Component Value Date PSA <0.02 08/26/2023 PSA <0.02 06/03/2023 PSA <0.02 03/03/2023 PSA <0.02 12/07/2022 PSA <0.02 09/16/2022 PSA <0.02 07/10/2022 PSA <0.02 06/19/2022 PSA <0.02 03/27/2022 PSA <0.02 01/05/2022 PSA <0.02 10/14/2021 CLINICAL IMPRESSION: Prostate cancer, on lupron, xtandi ET, baby asa, observing cbc, remains stable today Bladder cancer, history of multiple superficial bladder cancers. These have been removed through a TURB. - Continue to follow with urology, Remote history lung cancer, watching chest x ray, pending today RECOMMENDATION/PLAN: 1. Continue xtandi 80 mg daily pending PSA 2. Lupron today - continue to follow CBC, CMP, PSA. RTC in 3 months with claus Beltran. Abigail Saavedra APRN.ACQUISITIONS ASSISTANT I spent >30 minutes in the visit, with more than 50% of the total xpxj-ak-gnus time of the visit in counseling / coordination of care. Portions of this note including HPI, ROS, impression/plan may have been copied forward as to provide important historical information essential in contributing to medical decision making. Documentation has been reviewed and edited as necessary to support clinical decision making for today's visit and to reflect my own independent evaluation of this patient. documented in this encounter [facility] 11-18-2023 History of Present illness Narrative Radiology Service Progress Note PATIENT NAME: Isaias Slaughter DATE OF SERVICE: November 18, 2023 TIME: 11:12 AM PATIENT IDENTITY VERIFICATION COMPLETED USING TWO (2) IDENTIFIERS: Name and Date of confirmed by patient verbally. FALL SCREENING: Has the patient had 2 falls in the last year or 1 fall with injury or currently using an Ambulatory Assistive Device (Walker, Cane, Wheelchair, Crutches, etc.)? No PATIENT GENDER DATA: Male PATIENT RELEVANT IMPLANT DATA REVIEWED: Not Applicable PATIENT PRESENTS WITH AN IMPLANTABLE OR ATTACHED GENERAL FORECASTER: No RADIOLOGY DEPARTMENT: General X-ray: Exam(s) Completed: Chest X-Ray PERIPHERAL IV DATA: Not applicable SIGNED BY: RT Ruben(R) November 18, 2023 11:12 AM documented in this encounter [facility] 11-01-2023 Miscellaneous Notes Patient has been identified by name and date of : Yes Requested Prescriptions No prescriptions requested or ordered in this encounter RX INSTRUCTIONS: Patient aware RX will be sent to pharmacy. No need to notify patient. Danielle Caicedo LPN documented in this encounter [facility] 08-26-2023 Nurse Note Eliguard injection administered right abdomen, tolerated well, no immediate adverse reactions noted. For details see OV notes. Leslie Marte LPN documented in this encounter [facility] 08-26-2023 History of Present illness Narrative (Elements copied from my note dated June 03, 2023, have been reviewed and updated where appropriate, and all reflect current assessment and medical decision making from today's encounter, August 26, 2023) HISTORY OF PRESENT ILLNESS: Isaias Slaughter is a 88 year old male with history of lung cancer, bladder cancer and 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 Oncological history: Lung cancer--He underwent a right lower lobectomy along with mediastinal lymph node dissection. Surgery was performed on 02/21/14. 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 The tumor was 5 x 4.2 x 1.8 cm in size. There was no evidence of any pleural involvement. No evidence of any lymphovascular invasion identified. There was no evidence of any perineural invasion. The patient had no evidence of any mediastinal lymph node metastasis by this tumor. The right 10R was positive for metastasis the the phenotyping was different from the lung cancer. The lymph node showed a staining pattern consistent with adenocarcinoma of prostatic primary. This was positive for PSA, positive for prostate-specific membrane antigen as well as the prostatic acid phosphatase. The adenocarcinoma was diffusely positive for synaptophysin and focally positive for chromogranin highlighting a neuroendocrine differentiating pattern. Prostate cancer; history of prostate cancer ( Janis score 6- 7 ). This was organ confined and was treated with external beam radiation. The patient had a PSA level checked which was reported at 0.28. 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 Complained of severe muscle aches and pain, fatigue and weight loss after treatment started. Bladder cancer; history of multiple superficial bladder cancers. These have been removed through a TURB. Cystoscopy recently was positive for low-grade papillary carcinoma. Previous treatment: Lupron/abiraterone/prednisone. Zytiga became cost prohibitive. Current treatment: Lupron/ Xtandi 80 mg daily TURBT 01/29/2023-- -Extensive, endoscopically unresectable papillary tumor contiguously extending from right mid-ureter to UVJ, circumferential around ureter. -Approximately 10 superficial low grade appearing bladder tumors up to 1cm in size and a 2cm partially obstructing papillary tumor at the right ureteral orifice -1mm bulbar urethral lesions, possible tumor. -Severely dilated, torturous right ureter on retrograde pyelogram with severe hydro Pathology: Bladder, transurethral resection of tumor: -Noninvasive papillary urothelial carcinoma, predominantly low-grade with focal high-grade features. -Muscularis propria is not present for evaluation. Presents for ongoing oncologic management. 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 Increased aspirin 81 mg twice daily. No unusual bleeding or unexplained bruising. Taking 80 mg enzalutamide since May 2023 due to feeling poorly on 160 mg. Feels much better on 80 mg daily CLINICAL IMPRESSION: Prostate cancer, on lupron, xtandi ET, baby asa, observing cbc Remote history lung cancer, watching chest x ray RECOMMENDATION/PLAN: 1. Continue xtandi 80 mg daily pending PSA 2. Lupron today 3. See back 3 months, chest x ray at that visit Written and verbal health teaching given to patient, patient verbalizes understanding and agrees with treatment plan. 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 Malignant 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 (HCC) Malignant neoplasm of urinary bladder (HCC) Other and unspecified hyperlipidemia Hyperlipidemia PERS HX SKIN MALIGNANCY NEC 11/08/2006 Ureteral cancer (HCC) PAST SURGICAL HISTORY Procedure Laterality Date ANES TRANSURETHRAL RESECTION OF BLADDER TUMOR 2012 ANES TRANSURETHRAL RESECTION OF BLADDER TUMOR 2010 APPENDECTOMY 194 BLADDER BIOSPY FULGUR 2018 CARDIAC 2013 stent to RCA CATARACT EXTRACTION W/ INTRAOCULAR LENS IMPLANT HX Right COLON SURGERY HX 2020 COLONOSCOPY FLX DX W/COLLJ SPEC WHEN PFRMD 08/25/2012 Colonoscopy report 5 years COLSC FLX W/RMVL OF TUMOR POLYP LESION SNARE TQ 12/30/2006 CYSTOSCOPY,+URETEROSCOPY Right 03/2021 CYSTOURETHROSCOPY,FULGUR .5-2CM LESN 01/2021 CYSTOURETHROSCOPY,FULGUR .5-2CM LESN 2011 EGD REMOVAL TUMOR POLYP/OTHER LESION SNARE TECH 02/2022 done at [facility] PAST SURGICAL HISTORY OF 2001 TURB BLADDER CANCER PAST SURGICAL HISTORY OF 2013 cardiac stent x1 RMVL LUNG OTHER THAN PNEUMONECTOMY 1 LOBE LOBECT 02/21/2014 Mediastinoscopy, right posterolateral thoracotomy, right lower lobectomy, lymphadenectomy, rib blocks RPR 1ST INGUN HRNA AGE 6 YRS/> REDUCIBLE Left 03/19/2017 SIGMOIDOSCOPY FLX DX W/COLLJ SPEC BR/WA IF PFRMD Sigmoidoscopy TONSILLECTOMY PRIMARY/SECONDARY <AGE 13 Tonsillectomy FAMILY HISTORY Problem Relation Age of Onset Heart Mother Heart Father Ischemic Heart Disease Father Hypertension Brother Lipids Brother None No Family History No lung disease. Social History Tobacco Use Smoking status: Former Packs/day: 1.00 Years: 12.00 Additional pack years: 0.00 Total pack years: 12.00 Types: Cigarettes Start date: 1953 Quit date: 09/27/1964 Years since quittin.9 Smokeless tobacco: Never Tobacco comments: ETS: Father smoked in childhood home, then quit. Spouse non-smoker. Vaping Use Vaping Use: Never used Substance Use Topics Alcohol use: Yes Comment: occ Drug use: No ALLERGIES: ALLERGIES Allergen Reactions Amoxicillin Diarrhea, GI Upset Patient cannot tolerate this medication Lisinopril Cough Ssqcygr-Lnu-Ckg Red* Other: See Comments Patient states he will not take statins because of what they did to his . CURRENT OUTPATIENT MEDICATIONS: amLODIPine (NORVASC) 5 mg tablet^Take 1 tablet by mouth once daily.^Disp: 90 tablet^Rfl: 3 enzalutamide (XTANDI) 40 mg tablet^Take 2 tablets (80 mg) by mouth once daily.^Disp: 60 tablet^Rfl: 3 losartan (COZAAR) 100 mg tablet^Take 1 tablet by mouth once daily.^Disp: 90 tablet^Rfl: 0 folic acid 1 mg tablet^Take 1 tablet by mouth once daily.^Disp: 100 tablet^Rfl: 3 potassium chloride ER (KLOR-CON) 20 mEq tablet^Take 1 tablet by mouth once daily.^Disp: 90 tablet^Rfl: 3 FLUoxetine (PROZAC) 20 mg capsule^Take 1 capsule by mouth once daily.^Disp: 30 capsule^Rfl: 5 Calcium Citrate 250 mg calcium tab^Take 1 tablet by mouth once daily.^Disp: ^Rfl: Cholecalciferol, Vitamin D3, (VITAMIN D) 25 mcg (1,000 unit) cap^Take 1 capsule by mouth once daily.^Disp: 100 capsule^Rfl: 2 aspirin (CHILDRENS ASPIRIN) 81 mg chewable tablet^Take 1 tablet by mouth once daily.^Disp: ^Rfl: 0 Orklakoxqqqon-Ewyvqzev-Uzdlfw (CENTRUM SILVER) tab^Take 1 tablet by mouth once daily.^Disp: ^Rfl: REVIEW OF SYSTEMS: GENERAL: No fever, night sweats, weight loss or malaise. All other reviewed and negative other than HPI. PHYSICAL EXAMINATION: VITAL SIGNS: BP 142/80 Pulse 68 Temp 97 Wt 165 lb 8 oz (75.1kg) SpO2 96% GENERAL APPEARANCE: Well appearing, in no acute distress, alert and oriented x3, well-hydrated, well nourished. I spent a total of 30 minutes on the date of the service which included preparing to see the patient, [id number] patient care, completing clinical documentation, obtaining and/or reviewing separately obtained history, counseling and educating the patient/family/caregiver, ordering medications, tests, or procedures, independently interpreting results (not separately reported), and communicating results to the patient/family/caregiver. Electronically Signed: Elliott Sylvester MD August 26, 2023 documented in this encounter [facility] 08-09-2023 Miscellaneous Notes Patient has been identified by name and date of : Yes Requested Prescriptions Pending Prescriptions Disp Refills amLODIPine (NORVASC) 5 mg tablet 90 tablet 3 Sig: Take 1 tablet by mouth once daily. RX INSTRUCTIONS: Patient aware RX will be sent to pharmacy. No need to notify patient. Patient last office visit: 07/16/23 Patient next office visit: none scheduled Rosy Flores MA, documented in this encounter [facility] 08-02-2023 History of Present illness Narrative Episode Visit Count: 5 Therapist That Will Accept/Oversee The Plan Of Care: Jade Elias Start of Care Date: 07/20/23 Onset Date: 07/06/23 Plan of Care Certification Date: 07/20/23 Next Certification Due Date: 08/24/23 Patient Identified by Name and Date of : Yes REHABILITATION AND SPORTS THERAPY PHYSICAL THERAPY TREATMENT NOTE ASSESSMENT: Isaias Slaughter tolerated the session with fatigue and expected muscle soreness. He demonstrated difficulty with STS and tandem stance. The patient will continue to benefit from ongoing skilled physical therapy to progress toward set goals. PLAN FOR NEXT VISIT: Continue advancing balance exercises as able. SUBJECTIVE: Pt denies any falls. Pt states he is feeling alright today. Pain: Pain Pain Level: 0 OBJECTIVE MEASURES WITH LEVEL OF FUNCTION: Pt challenged with lateral stepping over hurdles. TREATMENT: Therapeutic Exercise: 1: Seated Scifit stepper x 5 minutes, seate 12 (1:1 throughout. Subjective collected) 2: STS 1x5 with Max A on rep 5 as pt did not stand up all the way and starting to lean back, pt safely sat in chair, then 1x10 with slower movements and standing all the way up Skilled Intervention: Patient was educated in proper exercise technique and purpose for exercises. Skilled judgment was used in selection of appropriate interventions. Correct performance of therapeutic exercises was facilitated with verbal and visual cuing. Neuromuscular Re-Education: 1: Semi-tandem stance 1x30 seconds B EO on even ground 2: tandem stance on level ground with EO, 1x22 seconds with LLE leading, x 2 attempts with RLE leading with duration of 18 seconds (Retro-lean with Mod A provided at gait belt with RLE leading.) 3: BOSU ball sarmad LE taps without UE support 2x15 B (second round better than first round with maintaining balance without leaning into // bars.) 4: stepping forward over hurdles x 6, 6' hurdles 6x using quad cane 5: stepping over hurdles lateral x 6, 6' hurdles 6x using quad cane (verbal cueing for proper sequencing) Skilled Intervention: Skilled judgment used to assess appropriate program for balance and coordination activity. Ensured patient safety with use of gait belt. Billing Therapeutic Exercise Treatment Minutes: 10 Neuromuscular Re-Education Treatment Minutes: 30 Skilled Treatment Time Minutes (timed and untimed codes): 40 Total Session Time (minutes): 40 Session Start Time : 1100 Session Stop Time : 1140 RENITA Mcgowan, PT documented in this encounter [facility] 07-27-2023 History of Present illness Narrative Episode Visit Count: 3 Therapist That Will Accept/Oversee The Plan Of Care: Jade Elias Start of Care Date: 07/20/23 Onset Date: 07/06/23 Plan of Care Certification Date: 07/20/23 Next Certification Due Date: 08/24/23 REHABILITATION AND SPORTS THERAPY PHYSICAL THERAPY TREATMENT NOTE ASSESSMENT: Isaias Slaughter tolerated the session with fatigue. He demonstrated difficulty with lateral stepping over 6 hurdles using quad cane, but only had LOB 2x requiring PT assist.. The patient will continue to benefit from ongoing skilled physical therapy to progress toward set goals. PLAN FOR NEXT VISIT: SUBJECTIVE: Presents with quad cane and glasses today. Denies falls. Pain: OBJECTIVE MEASURES WITH LEVEL OF FUNCTION: TREATMENT: Neuromuscular Re-Education: 1: walking with eyes closed 80' 2x with eyes closed 1x, cue to open the eyes to avoid collision with wall, LOB 2x but recovers without assist using quad cane 2: BOSU ball sarmad LE taps without UE support 3: BOSU taps, lateral with no UE support 1x20 each side , PT assist 1x to due to LOB 4: stepping forward over hurdles x 6, 6' hurdles 6x using quad cane 5: stepping over hurdles lateral x 6, 6' hurdles 6x using quad cane Skilled Intervention: Skilled judgment used to assess appropriate program for balance and coordination activity. Education in proprioceptive/kinesthetic awareness during standing and dynamic activities. Ensured patient safety with use of // bars and gait belt, as well as quad cane. Reviewed and educated patient on additions/changes for home program as noted above with an (*). Patient education as noted. Billing Neuromuscular Re-Education Treatment Minutes: 40 Skilled Treatment Time Minutes (timed and untimed codes): 40 Total Session Time (minutes): 40 Session Start Time : 1107 Session Stop Time : 1147 Jade Elias PT documented in this encounter [facility] 07-20-2023 History of Present illness Narrative Episode Visit Count: 1 Therapist That Will Accept/Oversee The Plan Of Care: Jade Elias Start of Care Date: 07/20/23 Onset Date: 07/06/23 Plan of Care Certification Date: 07/20/23 Next Certification Due Date: 08/24/23 Patient Identified by Name and Date of : Yes REHABILITATION AND SPORTS THERAPY PHYSICAL THERAPY EVALUATION PLAN OF CARE: Assessment: Isaias Slaughter presents with diagnosis of unsteady gait that interferes with walking . He presents with impairments in ADL's, balance, gait, independence in exercise, joint mobility, overall function, patient reported outcome measures, posture, strength, and symptom management. PROMIS (Patient-Reported Outcomes Measurement Information System) scores were reviewed and physical function domain and self efficacy domain identified as a rehabilitation concern. Prognosis for therapy is Fair due to: chronic nature of impairments, clinical presentation . He will benefit from skilled therapy services to meet the goals established for this plan of care as noted below. Goals for Episode of Care: created on 07/20/23 through 08/31/23 Patient will report no falls. Improve score on Timed Up and Go Test to 14 sec or less with or without SC to reflect decreased fall risk. Improve score on 30 Second Chair Stand to 8 or more repetitions to reflect decreased fall risk. Patient will demonstrate independent and proper use of assisstive device to allow for improved walking quality and safety therefore reducing the risk of falls. Patient will be able to corect postrual deviations independently in order to improve postural alignment of trunk during transfers, ambulation, sitting, standing, and functional activities, allow for normal mechanics, and to decrease current pain . Patient Goals: reduce fall risk Planned Interventions, Frequency, and Duration: Current Frequency: 2x/week Duration: 6 weeks Total Number of Visits Planned: 12 Planned Treatment Interventions: Therapeutic exercise (39325), Neuromuscular re-education (48656), Therapeutic activities (74294), Self-[facility] management (47018), Gait Training ([id number]) PLAN FOR NEXT VISIT: gait training with SC. static standing balance testing. Consider mCTSIB and FGA Patient demonstrates good understanding of plan of care and treatment. The above goals and plan of care were discussed and agreed upon by patient/family. SUBJECTIVE: for falls. Pt. fell back when watching a foul ball at his [employer] game. He denies dizziness or lightheadedness. He had another fall more recently. He owns a SC but only uses it on uneven surface. Lives alone. Pt. reports independence with all his ADLs with the exception of yardwork which his son completes. Drives and ambulates community distances without AD. Patient Goals: reduce fall risk Functional Limitations: walking Prior Level of Function: Independent without limitations Intake Information: Prescription present Previous Treatment: None Falls Interview: Fall with injury in the last year Falls Intervention: More thorough falls assessment to be performed Falls History # of falls in past year: 2 # of falls resulting in an injury in past year: 1 Pain: Pain Pain Level: 0 Post Treatment Pain Post Treatment Pain Level: 0 PROMIS Scales Higher is Better 07/20/2023 Phys Func - Score 39 (moderate dysfunction) Phys Func - Percentile 14 % Self-Eff Symptom - Score 43 (Average) Self-Eff Symptom - Percentile 24 % T-scores: mean of general population = 50. 5 points is clinically meaningfully difference Percentiles provide an indication of how the patient's score ranks in relation to the general population. Higher percentile rankings indicate better function/quality of life. 50th percentile is the average of the general population and indicates half of respondents had a worse score. OBJECTIVE MEASURES WITH LEVEL OF FUNCTION: Vision Vision Deficits: Wears corrective lenses Posture / Alignment Posture: Forward head, Increased thoracic kyphosis Mobility Sit To Stand: Modified Independent Stand To Sit: Modified Independent Gait Gait: Independent Gait Distance (feet): 100 Gait Device: None Gait Deviations: General Deviations General Deviations/Observations: Arm swing decreased, Janki decreased, Difficulty changing direction/turning, Flexed trunk posture, Narrow Base of Support, Non-functional gait speed, Shuffling Gait, Step length decreased, Visual scanning/environmental awareness decreased, Path Deviation Gait Observation: multiple steps to make turns, improved speed with use of SC Functional Performance Test Results Assistive Device: None 30 Second Chair Stand Test: 7 reps (with use of arm rests) Timed Up and Go (sec): 15 sec (using SC) Timed Up and Go - Condition 2 (sec) : 17 (21 first trial without AD) Education: Education Learning Preferences: Demonstration, Explanation, Performance, Printed Materials Barriers: Acuity of Illness Learning/educational needs: Plan of Care, Gait Training, Home exercise program, Safety Education Provided: Yes, see treatment interventions for education provided Education Provided To: Patient Education Mode/Type: Demonstration, Explanation/Discussion, Literature/Printed Materials, Performance Response to Education/Teach Back: States/Identifies, Return Demonstration TREATMENT: PT Treatment Interventions: Self-Fpc Management Evaluation Self-Fpc Management: 1: strongly encouraged use of SC 2: demonstrated and explained how to size and use SC 3: discussed balance and strength scores today, discussed scores as goals to determined that pt. has reduced his fall risk 4: discussed that it is possible to reduce fall risk with PT as well as improve balance at his age. Skilled Intervention: Skilled judgment in the selection of proper modification for activity of daily living/home management based on clinical presentation, deficits, and needs. Educated the patient regarding recommendations and provided written instruction to facilitate compliance. Reviewed patient specific diagnosis in relation to activities of daily living/home management. Activity progression based on professional judgement. Billing * Evaluation Moderate Complexity: 1 Unit Self-Care/Home Management Treatment Minutes: 15 Skilled Treatment Time Minutes (timed and untimed codes): 45 Total Session Time (minutes): 45 Session Start Time : 153 Session Stop Time : 162 Jade Elias PT documented in this encounter [facility] 07-16-2023 Miscellaneous Notes Kathy Care Coordination FOLLOW-UP NOTE Patient identified by name and date of . YES Spoke to patient Summary: (Reason for follow-up) Follow up on decrease dose of Xtandi Concerns: (New Barriers to care) Patient states he is better on decreased dose (2 pills daily of Xtandi). He states he has more energy and feels able to do things he needs to do. He is agreeable to staying at this dose. He will call in with any increase or new symptoms. Reviewed upcoming appointment time. Patient verbalized when to seek Medical Attention and an understanding of after- hours phone number and process: Yes Care Coordination Plan: No further follow up needed at this time Sudha Kim RN July 16, 2023 documented in this encounter [facility] 07-16-2023 History of Present illness Narrative SUBJECTIVE Isaias Slaughter is a 88 year old male here today for a check up on his medical problems. Chief Complaint Patient presents with: Fall: requesting PT HPI Isaias Slaughter is a 88 year old male established patient of Dr. Hinton. Here today for concerns of a recent falls. History of prostate cancer and mets to the lymph nodes. Recent treatment has been making him feel more unsteady. Would like orders for PT. Not dizzy or lightheaded. No injuries with the falls that are causing issues at this time. Concerned of risk for more falls going forward. Also needs new orders for b12 injections. Had been getting these monthly. His medications were reviewed today and his list is now up to date. Medications Current Outpatient Medications Medication Sig losartan (COZAAR) 100 mg tablet Take 1 tablet by mouth once daily. folic acid 1 mg tablet Take 1 tablet by mouth once daily. enzalutamide (XTANDI) 40 mg tablet Take 4 tablets (160 mg) by mouth once daily. Start only after completion of current supply of zytiga (Patient taking differently: Take 80 mg by mouth once daily. Start only after completion of current supply of zytiga) potassium chloride ER (KLOR-CON) 20 mEq tablet Take 1 tablet by mouth once daily. FLUoxetine (PROZAC) 20 mg capsule Take 1 capsule by mouth once daily. amLODIPine (NORVASC) 5 mg tablet Take 1 tablet by mouth once daily. Calcium Citrate 250 mg calcium tab Take 1 tablet by mouth once daily. Cholecalciferol, Vitamin D3, (VITAMIN D) 25 mcg (1,000 unit) cap Take 1 capsule by mouth once daily. aspirin (CHILDRENS ASPIRIN) 81 mg chewable tablet Take 1 tablet by mouth once daily. Nwpodbkxprxpm-Baktlbbe-Sjdphl (CENTRUM SILVER) tab Take 1 tablet by mouth once daily. Current Facility-Administered Medications Medication Dose Route Frequency [START ON 08/26/2023] cyanocobalamin 1,000 mcg injection 1,000 mcg INTRAMUSCULAR q 6 WEEKS ALLERGIES Allergen Reactions Amoxicillin Diarrhea, GI Upset Patient cannot tolerate this medication Lisinopril Cough Sarpqlc-Wfb-Ren Red* Other: See Comments Patient states he will not take statins because of what they did to his . ACTIVE PROBLEM LIST Mediastinoscopy, right thoracotomy, right lower lobectomy 02/21/14 - 02/01/2014 (A priority) Comment: 78-year-old ex smoker who was found to have a left lower lobe infiltrative mass which was biopsied and found to be consistent with adenocarcinoma. In addition he was also found to have a right suprahilar R. lymph node measuring 11 mm in size with an SUV of 4.4. For definitive surgical resection, on 02/21/2014, Dr. Dasilva performed Bronchoscopy, cervical mediastinoscopy, right thoracotomy, right lower lobectomy, and lymphadenectomy with Dr. Dasilva. Chest tube removed on postop day 2 and ilana drain removed postop day 3. Plan - Pain management -Out of bed, cough, deep breathe, acapella, frequent ambulation. - Discharge today . Essential Hypertension - 08/03/2006 (B priority) Comment: PMH of HPTN. 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 Home regimen resumed and BPs have been normotensive Plan - Continue home regimen - Monitor BP . Cad (Coronary Artery Disease) - 01/08/2014 (C priority) Comment: PMH of CAD. Severe 99% mid RCA stenosis consistent with ischemia noted on stress test. Otherwise, calcification in the proximal left circulation, 40% proximal LAD stenosis, and mild diffuse disease in all three coronary arteries.Successful PCI to the mid-RCA in August 2013. CORE MEASURES BB: Patient is on Atenolol 25mg daily (reordered) Statin: Patient is on Simvastatin 20mg daily (reordered) ASA: ASA 81mg daily (reordered) -Clopidogrel 75mg daily for at least 2-whpli-hiqbuyxbk. . Malignant Neoplasm of Bladder (Hcc) - 09/06/2009 (C priority) Comment: PMH of bladder cancer in 2001. His original tumor, which was superficial, was removed in 2001. Plan - Voiding. No hematuria. Continue to monitor. 2017- he was found to have another small lesion that will be removed, he has annual cystoscope. . 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 Dasilva removed it. 2013 He has been breathing fine, it is definitely less than it was in the past. Hld (Hyperlipidemia) - 01/08/2014 Presence of Bare Metal Stent in Right Coronary Artery - 10/15/2013 Radiation Cystitis - 07/20/2012 Comment: Around the age of 66. He got the radiation done at that time He had no issues with the radiation. 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 Spouse non-smoker. Vaping Use Vaping Use: Never used Substance Use Topics Alcohol use: No Drug use: No Review of Systems Respiratory: Negative. Cardiovascular: Negative. OBJECTIVE BP 152/74 Pulse 74 Wt 165 lb (74.8kg) SpO2 97% Physical Exam Vitals and nursing note reviewed. Constitutional: General: He is awake. He is not in acute distress. Appearance: Normal appearance. He is well-developed and well-groomed. He is not ill-appearing, toxic-appearing or diaphoretic. HENT: Head: Normocephalic. Right Ear: External ear normal. Left Ear: External ear normal. Nose: Nose normal. Eyes: General: Vision grossly intact. Conjunctiva/sclera: Conjunctivae normal. Pupils: Pupils are equal, round, and reactive to light. Neck: Vascular: No JVD. Trachea: Trachea normal. Cardiovascular: Rate and Rhythm: Normal rate and regular rhythm. Pulses: Normal pulses. Heart sounds: Normal heart sounds. No murmur heard. Pulmonary: Effort: Pulmonary effort is normal. No accessory muscle usage, prolonged expiration or respiratory distress. Breath sounds: Normal breath sounds. Musculoskeletal: Cervical back: Neck supple. Skin: General: Skin is warm and dry. Capillary Refill: Capillary refill takes less than 2 seconds. Neurological: General: No focal deficit present. Mental Status: He is alert and oriented to person, place, and time. Mental status is at baseline. Psychiatric: Attention and Perception: Attention and perception normal. Mood and Affect: Mood and affect normal. Speech: Speech normal. Behavior: Behavior normal. Behavior is cooperative. Thought Content: Thought content normal. Cognition and Memory: Cognition and memory normal. Judgment: Judgment normal. ASSESSMENT/PLAN: 1. Unsteady gait - ICD9: 781.2, ICD10: R26.81 (primary diagnosis) - CONSULT TO PHYSICAL THERAPY 2. Frequent falls - ICD9: V15.88, ICD10: R29.6 3. Prostate cancer (HCC) - ICD9: 185, ICD10: C61 4. 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 B12 deficiency - ICD9: 266.2, ICD10: E53.8 - CYANOCOBALAMIN (VIT B-12) 1,000 MCG/ML INJECTION SOLUTION Portions of this note have been entered by ancillary staff. I have reviewed and when necessary edited, so that they are an adequate record of my encounter with this patient Please note that parts of this document were created using voice recognition software and therefore may contain grammatical errors. Patient verbalizes understanding of instructions from today's visit and in agreement with treatment plan. Questions answered. Agrees to call the office if questions, concerns of issues with acute symptoms not improving or if they worsen. See diagnoses and orders for additional plan(s). Allergies and medications were reviewed, list was updated, and refills given if needed. Past medical, surgical, social, and family history reviewed and updated as appropriate. Encouraged proper diet & exercise as well as compliance with taking medications. Age-appropriate health preventative measures were discussed. Return if symptoms worsen or fail to improve, for Keep next scheduled appointment.. Lupe Barreto APRN-ROLF documented in this encounter [facility] 07-14-2023 Miscellaneous Notes Patient has been identified by name and date of : No Patient phones for refill(s): Requested Prescriptions Pending Prescriptions Disp Refills losartan (COZAAR) 100 mg tablet 90 tablet 3 Sig: Take 1 tablet by mouth once daily. Date of last office visit in primary care: 08/05/2022 Date of next office visit in primary care: 07/16/2023 Last 2 Encounter Wt Readings: Date: Wt: 06/03/2023 74.8 kg (165 lb) 04/07/2023 73.9 kg (163 lb) Previous labs/tests for medication: Blood Pressure: BUN (mg/dL) Date Value 03/03/2023 18 10/14/2021 15 Sodium (mmol/L) Date Value 03/03/2023 136 10/14/2021 137 Last 1 Encounter BP Readings: Date: BP: 06/03/2023 139/79 Please advise. Thank you. Ana Richardson. documented in this encounter [facility] 07-13-2023 Miscellaneous Notes Kathy Care Coordination FOLLOW-UP NOTE Patient identified by name and date of . YES Spoke to patient Summary: (Reason for follow-up) Follow up on medication dose change Concerns: (New Barriers to care) Call to patient and states that he has been taking the lower dose of 3 pills Xtandi daily. He states that he feels a little better on this dose but still feels unsteady. He is aware that he can decrease his dose to [address] Sylvester and he would like to do that. He will start with tomorrow's dose. This nurse will call him back at the end of the week for another update. Patient denies further needs or concerns. New Referrals Needed: No Is the patient having any pain? no Patient verbalized when to seek Medical Attention and an understanding of after- hours phone number and process: Yes Care Coordination Plan: Will follow up with patient later this week. Sudha Kim RN July 13, 2023 documented in this encounter [facility] 06-11-2023 Miscellaneous Notes Patient has been identified by name and date of : Yes Last office visit in this department: Visit date not found RX INSTRUCTIONS: Patient aware RX escripted to mail away pharmacy. No need to notify patient. Patient phones requesting refills as follows: Requested Prescriptions Pending Prescriptions Disp Refills enzalutamide (XTANDI) 40 mg tablet 120 tablet 3 Sig: Take 4 tablets (160 mg) by mouth once daily. Start only after completion of current supply of zytiga Please review and advise. Hailey Augustin documented in this encounter [facility] 06-03-2023 Nurse Note Eligard injection administered, left lower abd.tolerated well, no immediate adverse reactions noted. 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 Oncological history: Lung cancer--He underwent a right lower lobectomy along with mediastinal lymph node dissection. Surgery was performed on 02/21/14. 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 The tumor was 5 x 4.2 x 1.8 cm in size. There was no evidence of any pleural involvement. No evidence of any lymphovascular invasion identified. There was no evidence of any perineural invasion. The patient had no evidence of any mediastinal lymph node metastasis by this tumor. The right 10R was positive for metastasis the the phenotyping was different from the lung cancer. The lymph node showed a staining pattern consistent with adenocarcinoma of prostatic primary. This was positive for PSA, positive for prostate-specific membrane antigen as well as the prostatic acid phosphatase. The adenocarcinoma was diffusely positive for synaptophysin and focally positive for chromogranin highlighting a neuroendocrine differentiating pattern. Prostate cancer; history of prostate cancer ( Janis score 6- 7 ). This was organ confined and was treated with external beam radiation. The patient had a PSA level checked which was reported at 0.28. 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 Complained of severe muscle aches and pain, fatigue and weight loss after treatment started. Bladder cancer; history of multiple superficial bladder cancers. These have been removed through a TURB. Cystoscopy recently was positive for low-grade papillary carcinoma. Previous treatment: Lupron/abiraterone/prednisone. Zytiga became cost prohibitive. Current treatment: Lupron/ Xtandi TURBT 01/29/2023-- -Extensive, endoscopically unresectable papillary tumor contiguously extending from right mid-ureter to UVJ, circumferential around ureter. -Approximately 10 superficial low grade appearing bladder tumors up to 1cm in size and a 2cm partially obstructing papillary tumor at the right ureteral orifice -1mm bulbar urethral lesions, possible tumor. -Severely dilated, torturous right ureter on retrograde pyelogram with severe hydro Pathology: Bladder, transurethral resection of tumor: -Noninvasive papillary urothelial carcinoma, predominantly low-grade with focal high-grade features. -Muscularis propria is not present for evaluation. Presents for ongoing oncologic management. 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 Increased aspirin 81 mg twice daily. No unusual bleeding or unexplained bruising. CLINICAL IMPRESSION: Prostate cancer, on lupron, xtandi ET, baby asa, observing cbc Remote history lung cancer, watching chest x ray RECOMMENDATION/PLAN: 1. Chest x ray today 2. lupron 3. See back 3 months Written and verbal health teaching given to patient, patient verbalizes understanding and agrees with treatment plan. 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 Malignant 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 (HCC) Malignant neoplasm of urinary bladder (HCC) Other and unspecified hyperlipidemia Hyperlipidemia PERS HX SKIN MALIGNANCY NEC 11/08/2006 Ureteral cancer (HCC) PAST SURGICAL HISTORY Procedure Laterality Date ANES TRANSURETHRAL RESECTION OF BLADDER TUMOR 2012 ANES TRANSURETHRAL RESECTION OF BLADDER TUMOR 2010 APPENDECTOMY 194 BLADDER BIOSPY FULGUR 2018 CARDIAC 2013 stent to RCA CATARACT EXTRACTION W/ INTRAOCULAR LENS IMPLANT HX Right COLON SURGERY HX 2020 COLONOSCOPY FLX DX W/COLLJ SPEC WHEN PFRMD 08/25/2012 Colonoscopy report 5 years COLSC FLX W/RMVL OF TUMOR POLYP LESION SNARE TQ 12/30/2006 CYSTOSCOPY,+URETEROSCOPY Right 03/2021 CYSTOURETHROSCOPY,FULGUR .5-2CM LESN 01/2021 CYSTOURETHROSCOPY,FULGUR .5-2CM LESN 2011 EGD REMOVAL TUMOR POLYP/OTHER LESION SNARE TECH 02/2022 done at [facility] PAST SURGICAL HISTORY OF 2001 TURB BLADDER CANCER PAST SURGICAL HISTORY OF 2013 cardiac stent x1 RMVL LUNG OTHER THAN PNEUMONECTOMY 1 LOBE LOBECT 02/21/2014 Mediastinoscopy, right posterolateral thoracotomy, right lower lobectomy, lymphadenectomy, rib blocks RPR 1ST INGUN HRNA AGE 6 YRS/> REDUCIBLE Left 03/19/2017 SIGMOIDOSCOPY FLX DX W/COLLJ SPEC BR/WA IF PFRMD Sigmoidoscopy TONSILLECTOMY PRIMARY/SECONDARY <AGE 12 Tonsillectomy FAMILY HISTORY Problem Relation Age of Onset Heart Mother Heart Father Ischemic Heart Disease Father Hypertension Brother Lipids Brother None No Family History No lung disease. Social History Tobacco Use Smoking status: Former Packs/day: 1.00 Years: 12.00 Additional pack years: 0.00 Total pack years: 12.00 Types: Cigarettes Start date: 1952 Quit date: 09/27/1964 Years since quittin.7 Smokeless tobacco: Never Tobacco comments: ETS: Father smoked in childhood home, then quit. Spouse non-smoker. Vaping Use Vaping Use: Never used Substance Use Topics Alcohol use: No Drug use: No ALLERGIES: ALLERGIES Allergen Reactions Amoxicillin Diarrhea, GI Upset Patient cannot tolerate this medication Lisinopril Cough Ebeezsm-Lud-Dcr Red* Other: See Comments Patient states he will not take statins because of what they did to his . CURRENT OUTPATIENT MEDICATIONS: potassium chloride ER (KLOR-CON) 20 mEq tablet^Take 1 tablet by mouth once daily.^Disp: 90 tablet^Rfl: 3 enzalutamide (XTANDI) 40 mg tablet^Take 4 tablets (160 mg) by mouth once daily. Start only after completion of current supply of zytiga^Disp: 120 tablet^Rfl: 3 losartan (COZAAR) 100 mg tablet^Take 1 tablet by mouth once daily.^Disp: 90 tablet^Rfl: 3 FLUoxetine (PROZAC) 20 mg capsule^Take 1 capsule by mouth once daily.^Disp: 30 capsule^Rfl: 5 amLODIPine (NORVASC) 5 mg tablet^Take 1 tablet by mouth once daily.^Disp: 90 tablet^Rfl: 3 folic acid 1 mg tablet^Take 1 tablet by mouth once daily.^Disp: 100 tablet^Rfl: 3 Calcium Citrate 250 mg calcium tab^Take 1 tablet by mouth once daily.^Disp: ^Rfl: Cholecalciferol, Vitamin D3, (VITAMIN D) 25 mcg (1,000 unit) cap^Take 1 capsule by mouth once daily.^Disp: 100 capsule^Rfl: 2 aspirin (CHILDRENS ASPIRIN) 81 mg chewable tablet^Take 1 tablet by mouth once daily.^Disp: ^Rfl: 0 Uejlkekxoiqje-Rfchanpb-Ckrquv (CENTRUM SILVER) tab^Take 1 tablet by mouth once daily.^Disp: ^Rfl: REVIEW OF SYSTEMS: GENERAL: No fever, night sweats, weight loss or malaise. All other reviewed and negative other than HPI. PHYSICAL EXAMINATION: VITAL SIGNS: BP 139/79 Pulse 76 Temp 97.6 Wt 165 lb (74.8kg) GENERAL APPEARANCE: Well appearing, in no acute distress, alert and oriented x3, well-hydrated, well nourished. I spent a total of 35 minutes on the date of the service which included preparing to see the patient, [id number] patient care, completing clinical documentation, obtaining and/or reviewing separately obtained history, counseling and educating the patient/family/caregiver, ordering medications, tests, or procedures, independently interpreting results (not separately reported), and communicating results to the patient/family/caregiver. Electronically Signed: Elliott Sylvester MD June 03, 2023 9:31 AM documented in this encounter [facility] 06-03-2023 History of Present illness Narrative Radiology Service Progress Note PATIENT NAME: Isaias Slaughter DATE OF SERVICE: June 03, 2023 TIME: 8:57 AM PATIENT IDENTITY VERIFICATION COMPLETED USING TWO (2) IDENTIFIERS: Name and Date of confirmed by patient verbally. FALL SCREENING: Has the patient had 2 falls in the last year or 1 fall with injury or currently using an Ambulatory Assistive Device (Walker, Cane, Wheelchair, Crutches, etc.)? No PATIENT GENDER DATA: Male PATIENT RELEVANT IMPLANT DATA REVIEWED: Not Applicable RADIOLOGY DEPARTMENT: General X-ray: Exam(s) Completed: Chest X-Ray PERIPHERAL IV DATA: Not applicable SIGNED BY: RT Paul(R) June 03, 2023 8:57 AM documented in this encounter [facility] 05-17-[address] Mahoney in another encounter. Winter Hawkins LPN Per [employer] Message, patient cancelled B<BX on 05/19/23. Decided not to have procedure done. Saliaja Sesay documented in this encounter [facility] 05-17-2023 Miscellaneous Notes Patient has been identified by name and date of : No Patient phones for refill(s): Requested Prescriptions Pending Prescriptions Disp Refills potassium chloride ER (KLOR-CON) 20 mEq tablet 90 tablet 3 Sig: Take 1 tablet by mouth once daily. Date of last office visit in primary care: 08/05/22 Last 2 Encounter Wt Readings: Date: Wt: 04/07/2023 73.9 kg (163 lb) 03/03/2023 73.5 kg (162 lb) Previous labs/tests for medication: Not applicable Please advise. Thank you. Ana Kerns LPN documented in this encounter [facility] 05-12-2023 Miscellaneous Notes Please send Rx. Leslie Marte LPN Patient stated he was to call 3 days before running out of Xtandi. He is requesting a refill and states medication gets mailed to him. Patient asking when he should expect medication. documented in this encounter [facility] 04-29-2023 Miscellaneous Notes Patient has been contacted via: Phone Per patient called dtr emilia To reschedule appointment with Provider: Zee Toro Date of appointment: 04/28/2023 Reason: No Show Attempt: First Attempt Patient call back number given: [phone] Any additional info: lm to call to r/s Mayela Hernández documented in this encounter [facility] 04-12-2023 Miscellaneous Notes I called pharmacy and got a refill set up for him to be delivered. Winter Hawkins LPN Patient calling for refill of xtandi. He states he is completely out of medication and states medications are mailed to him and he doesn't know what pharm he uses. documented in this encounter [facility] 04-12-2023 Miscellaneous Notes Patient has been identified by name and date of : No Patient phones for refill(s): Requested Prescriptions Pending Prescriptions Disp Refills losartan (COZAAR) 100 mg tablet [Pharmacy Med Name: losartan 100 mg tablet] 90 tablet 3 Sig: Take 1 tablet by mouth once daily. Date of last office visit in primary care: 08/05/22 Last 2 Encounter Wt Readings: Date: Wt: 04/07/2023 73.9 kg (163 lb) 03/03/2023 73.5 kg (162 lb) Previous labs/tests for medication: Blood Pressure: BUN (mg/dL) Date Value 03/03/2023 18 10/14/2021 15 Sodium (mmol/L) Date Value 03/03/2023 136 10/14/2021 137 Last 1 Encounter BP Readings: Date: BP: 04/07/2023 146/87[Left Arm[ Please advise. Thank you. Ana Kerns LPN documented in this encounter [facility] 03-22-2023 Miscellaneous Notes Scheduled as directed Oma Patient is aware of all information and verbalized understanding. PSS- please schedule patient for a lab appointment 04/07/2023 @ 3:30 CBC and OV 04/07/2023 @ 4:00. Patient is aware of appointments. Leslie Marte LPN I ordered a myeloproliferative neoplasm panel on him because of increasing trend in platelet count. 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 Advise him to increase low-dose aspirin to an 81 mg tablet twice daily. Schedule him to see me for established complex visit 04/07 at 4 PM. CBC at that time. Isaias Mahoney DO documented in this encounter [facility] 03-17-2023 Miscellaneous Notes He just saw oncology and apparently he may be interested in rescheduling his surgery again- call him and if so please arrange office visit Zee Toro MD documented in this encounter [facility] 03-12-2023 Miscellaneous Notes Refills available at mail away pharmacy. I called pharmacy to initiate refill. Med will be shipped overnight. Pt notified. Winter Hawkins LPN Patient called stating he was to inform clinical when he needed refill for Xtandi. He called and stated he is completely out. Patient asking for a call when refill submitted. documented in this encounter [facility] 03-03-2023 Nurse Note Pt here for injection of Lupron. Given IM in Left buttocks. Pt tolerated well. For all other information regarding today, see today's OV note with Dr Mahoney. Winter Hawkins LPN documented in this encounter [facility] 03-03-2023 History of Present illness Narrative DIAGNOSES: History of metastatic prostate cancer with (intrathoracic lymph node and lung metastasis) & stage I non-small cell lung cancer- right lower lobe in complete remission. - history of superficial bladder cancer- status post TURB & urothelial cancer of the right ureter. Per Dr. Reese's most recent office visit note updated and edited by me today. 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 Oncological history: Lung cancer--He underwent a right lower lobectomy along with mediastinal lymph node dissection. Surgery was performed on 02/21/14. 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 The tumor was 5 x 4.2 x 1.8 cm in size. There was no evidence of any pleural involvement. No evidence of any lymphovascular invasion identified. There was no evidence of any perineural invasion. The patient had no evidence of any mediastinal lymph node metastasis by this tumor. The right 10R was positive for metastasis the the phenotyping was different from the lung cancer. The lymph node showed a staining pattern consistent with adenocarcinoma of prostatic primary. This was positive for PSA, positive for prostate-specific membrane antigen as well as the prostatic acid phosphatase. The adenocarcinoma was diffusely positive for synaptophysin and focally positive for chromogranin highlighting a neuroendocrine differentiating pattern. Prostate cancer; history of prostate cancer ( Lillian score 6- 7 ). This was organ confined and was treated with external beam radiation. The patient had a PSA level checked which was reported at 0.28. 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 Complained of severe muscle aches and pain, fatigue and weight loss after treatment started. Bladder cancer; history of multiple superficial bladder cancers. These have been removed through a TURB. Cystoscopy recently was positive for low-grade papillary carcinoma. Previous treatment: Lupron/abiraterone/prednisone. Zytiga became cost prohibitive. Current treatment: Lupron/ Xtandi Interim history: TURBT 01/29/2023-- -Extensive, endoscopically unresectable papillary tumor contiguously extending from right mid-ureter to UVJ, circumferential around ureter. -Approximately 10 superficial low grade appearing bladder tumors up to 1cm in size and a 2cm partially obstructing papillary tumor at the right ureteral orifice -1mm bulbar urethral lesions, possible tumor. -Severely dilated, torturous right ureter on retrograde pyelogram with severe hydro Pathology: Bladder, transurethral resection of tumor: -Noninvasive papillary urothelial carcinoma, predominantly low-grade with focal high-grade features. -Muscularis propria is not present for evaluation. No cough, wheeze of hemoptysis. No shortness of breath at rest. No GLORIA. Denies pain. No hot flahes. About 4-5 episodes nocturia nightly. No gross hematuria. PMH, medications and allergies personally reviewed by me today. Any changes documented in appropriate section. ROS: Constitutional: No fever. No drenching night sweats. Normal appetite. No unexplained weight loss. Neuro: No recent SERRATO, vertigo, dizziness or imbalance. No symptoms of sensory neuropathy. HEENT: No recent change in voice, vision or hearing. Resp: See HPI. CVS: No exertional chest pain, PND or orthopnea. No extremity swelling/edema. No symptoms of claudication. No painful or tender varicose veins. GI: No dysgeusia. No symptoms of stomatitis. No dysphagia or odynophagia. No reflux, n/v, change in bowel habits. No abdominal pain, bloating or distension. No black or bloody stools. : See HPI. Endo: No polyuria or polydipsia. No heat or cold intolerance. Musculoskeletal: No bone, back, joint and muscular pain. Derm: No current rash. No history of jaundice. No diffuse pruritis. Heme: No unusual bleeding and unexplained bruising. Psych: Normal mood. PHYSICAL EXAM: Vitals: Blood pressure 136/76, pulse 68, temperature 36.2 C (97.2 F), weight 73.5 kg (162 lb), SpO2 95 %. Well-appearing and in no acute distress. EYES: Sclerae are anicteric bilaterally. LYMPHATIC: There is no palpable cervical, supraclavicular, axillary adenopathy. RESPIRATORY: Inspiratory breath sounds are of normal intensity in all land. No rales, wheezes or rhonchi. CARDIOVASCULAR: Rhythm is regular. ABDOMEN: The abdomen is nondistended. Extremities: No swelling or edema. SKIN: No jaundice. LABS: Component Latest Ref Rng & Units 03/03/2023 WBC 3.70 - 11.00 k/uL 8.44 RBC 4.20 - 6.00 m/uL 4.98 Hemoglobin 13.0 - 17.0 g/dL 15.0 Hematocrit 39.0 - 51.0 % 46.0 MCV 80.0 - 100.0 fL 92.4 MCH 26.0 - 34.0 pg 30.1 MCHC 30.5 - 36.0 g/dL 32.6 RDW-CV 11.5 - 15.0 % 14.0 Platelet Count 150 - 400 k/uL 533 (H) MPV 9.0 - 12.7 fL 10.9 Neut% % 75.1 Abs Neut (ANC) 1.45 - 7.50 k/uL 6.34 Lymph% % 12.6 Abs Lymph 1.00 - 4.00 k/uL 1.06 Macon% % 9.0 Abs [place]on <0.87 k/uL 0.76 Eosin% % 1.8 Abs Eosin <0.46 k/uL 0.15 Baso% % 0.6 Abs Baso <0.11 k/uL 0.05 Immature Gran % % 0.9 IMMATURE GRANS (ABS) <0.10 k/uL 0.08 NRBC /100 WBC 0.0 Absolute nRBC <0.01 k/uL <0.01 DTYPE Auto Protein, Total 6.3 - 8.0 g/dL 7.0 Albumin 3.9 - 4.9 g/dL 4.7 Calcium 8.5 - 10.2 mg/dL 10.2 Bilirubin, Total 0.2 - 1.3 mg/dL 0.6 Alkaline Phosphatase 38 - 113 U/L 91 AST 14 - 40 U/L 12 (L) ALT 10 - 54 U/L 7 (L) Glucose 74 - 99 mg/dL 118 (H) BUN 9 - 24 mg/dL 18 Creatinine 0.73 - 1.22 mg/dL 1.17 Sodium 136 - 144 mmol/L 136 Potassium 3.7 - 5.1 mmol/L 4.4 Chloride 97 - 105 mmol/L 98 CO2 22 - 30 mmol/L 26 Anion Gap 9 - 18 mmol/L 12 eGFR >=60 mL/min/1.73m 61 ASSESSMENT/PLAN: (C61) Prostate cancer (HCC) (primary encounter diagnosis) (C77.1) 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) Assessment: -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 -Asymptomatic from this. -He is tolerating androgen deprivation therapy with Lupron very well. -Recent change from abiaterone to enzalutamide secondary to cost. He is tolerating enzalutamide very well without any symptomatic side effect. -Does not appear that he has had bisphosphonate or osteoclast inhibitor therapy in the past. Plan -Continue every 3-month Lupron administration. -Continue enzalutamide 160 mg daily. -Monitor PSA. -Will address bone health issues at next visit. 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 -He is declining to undergo ureteronephrectomy at this time. He wants to defer until after his grandson's wedding 05/01. I explained it would be best to do it sooner rather than later and I anticipate he would most likely recover in time for the wedding but that wedding is a very special event for him and he would be devastated to miss it. Plan: -He will contact Dr. Clay's office to inquire about having the surgery after the wedding. (C34.31) Malignant 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 (HCC) Assessment: -Underwent right lower lobectomy along with mediastinal lymph node dissection 01/2014. -pT2a pNx (fragmented LNs, number could not be determined) M0 stage IB mucinous adenocarcinoma with predominant papillary and lepidic growth patterns of the right lower lobe. -Separate focus (5 mm) carcinoid tumor with other foci of carcinoid tumorlets present within the lobectomy specimen. -Most recent CT chest 06/2022 JEFFRY. Plan: -CXR in 3 months. 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 -Discussed other differential including iron deficiency and possible myeloproliferative neoplasm. Plan: -Check iron and MPN panel. Portions of this documentation were copied and pasted from previous office visit notes in order to provide a cohesive continuity of the history. The note has been reviewed and edited and updated as necessary. I spent a total of 60 minutes on the date of the service which included preparing to see the patient, [id number] patient care, completing clinical documentation, obtaining and/or reviewing separately obtained history, performing a medically appropriate examination, counseling and educating the patient/family/caregiver, ordering medications, tests, or procedures, communicating with other HCPs (not separately reported), and communicating results to the patient/family/caregiver. Isaias Mahoney DO cc: Dr. Kya Clay documented in this encounter [facility] 02-05-2023 Evaluation note Diagnosis Urothelial carcinoma of kidney, right (HCC)- Primary Stage 3a chronic kidney disease (HCC) Urothelial carcinoma (HCC) Other malignant neoplasm without specification of site documented in this encounter [facility] History of Present illness Narrative* Ruthann Clay MD - 02/03/2023 3:30 PM EDT REASON FOR VISIT: Post-op, pathology discussion HPI: 87 year old male with a bladder masswith metastatic prostate cancer, low grade non invasive bladder cancer, now with right distal obstructing urothelial ca vs stricture. S/P TURBT, cystoscopy R URS, R retrograde pyelogram (01/29/23) PATHOLOGY: FINAL DIAGNOSIS Bladder, transurethral resection of tumor: -Noninvasive papillary urothelial carcinoma, predominantly low-grade with focal high-grade features. -Muscularis propria is not present for evaluation. LABS: Creatinine Date Value Ref Range Status 01/26/2023 1.25 (H) 0.73 - 1.22 mg/dL Final 12/30/2022 1.17 0.73 - 1.22 mg/dL Final 12/17/2022 1.08 0.73 - 1.22 mg/dL Final 12/07/2022 1.20 0.73 - 1.22 mg/dL Final PSA (ng/mL) Date Value 12/07/2022 <0.02 09/16/2022 <0.02 07/10/2022 <0.02 06/19/2022 <0.02 10/14/2021 <0.02 07/22/2021 <0.03 04/21/2021 <0.03 12/31/2020 <0.03 URINALYSIS: Not done IMAGING: Ultrasound kidney/bladder (12/10/22): Again noted is severe right-sided hydronephrosis and hydroureter ALLERGIES: ALLERGIES Allergen Reactions Amoxicillin Diarrhea, GI Upset Patient cannot tolerate this medication Lisinopril Cough Xbqdgla-Xvn-Xkc Red* Other: See Comments Patient states he will not take statins because of what they did to his . MEDICATIONS: Current Outpatient Medications Medication Sig abiraterone 250 mg tablet Take four tablets by mouth once daily. enzalutamide (XTANDI) 40 mg tablet Take 4 tablets (160 mg) by mouth once daily. Start only after completion of current supply of zytiga predniSONE (DELTASONE) 5 mg tablet Take 1 tablet by mouth once daily. Take with breakfast amLODIPine (NORVASC) 5 mg tablet Take 1 tablet by mouth once daily. FLUoxetine (PROZAC) 10 mg capsule Take 1 capsule by mouth once daily. losartan (COZAAR) 100 mg tablet Take 1 tablet by mouth once daily. potassium chloride ER (K-DUR, KLOR-CON) 20 mEq tablet Take 1 tablet by mouth once daily. folic acid 1 mg tablet Take 1 tablet by mouth once daily. Calcium Citrate 250 mg calcium tab Take 1 tablet by mouth once daily. Cholecalciferol, Vitamin D3, (VITAMIN D) 25 mcg (1,000 unit) cap Take 1 capsule by mouth once daily. aspirin (CHILDRENS ASPIRIN) 81 mg chewable tablet Take 1 tablet by mouth once daily. Hqpesyxkhrzmn-Vuvdqooy-Ysfzjq (CENTRUM SILVER) tab Take 1 tablet by mouth once daily. No current facility-administered medications for this visit. 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 Malignant 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 (HCC) Malignant neoplasm of urinary bladder (HCC) Other and unspecified hyperlipidemia Hyperlipidemia PERS HX SKIN MALIGNANCY NEC 11/08/2006 Ureteral cancer (HCC) PAST SURGICAL HISTORY Procedure Laterality Date ANES TRANSURETHRAL RESECTION OF BLADDER TUMOR 2012 ANES TRANSURETHRAL RESECTION OF BLADDER TUMOR 2010 APPENDECTOMY 1946 BLADDER BIOSPY FULGUR 2018 CARDIAC 2013 stent to RCA CATARACT EXTRACTION W/ INTRAOCULAR LENS IMPLANT HX Right COLON SURGERY HX 2019 COLONOSCOPY FLX DX W/COLLJ SPEC WHEN PFRMD 08/25/2012 Colonoscopy report 5 years COLSC FLX W/RMVL OF TUMOR POLYP LESION SNARE TQ 12/30/2006 CYSTOSCOPY,+URETEROSCOPY Right 03/2021 CYSTOURETHROSCOPY,FULGUR .5-2CM LESN 01/2021 CYSTOURETHROSCOPY,FULGUR .5-2CM LESN 2011 EGD REMOVAL TUMOR POLYP/OTHER LESION SNARE TECH 02/2022 done at [facility] PAST SURGICAL HISTORY OF 2001 TURB BLADDER CANCER PAST SURGICAL HISTORY OF 2013 cardiac stent x1 RMVL LUNG OTHER THAN PNEUMONECTOMY 1 LOBE LOBECT 02/21/2014 Mediastinoscopy, right posterolateral thoracotomy, right lower lobectomy, lymphadenectomy, rib blocks RPR 1ST INGUN HRNA AGE 5 YRS/> REDUCIBLE Left 03/19/2017 SIGMOIDOSCOPY FLX DX W/COLLJ SPEC BR/WA IF PFRMD Sigmoidoscopy TONSILLECTOMY PRIMARY/SECONDARY <AGE 12 Tonsillectomy REVIEW OF SYSTEMS General: No weight loss, malaise or fevers., SEE HPI Genitourinary: No history of dysuria, frequency or incontinence The remainder of the ROS was reviewed and negative. PHYSICAL EXAMINATION There were no vitals taken for this visit. General: No acute distress Genitourinary: MALE EXAM: Exam NOT Indicated PROBLEMS: CT in 2015: right kidney was normal CT in 2017: Right kidney was normal CT in 2018: right k Cysto in 2020: 2 small bladder lesion. Moderated amount of papillary tumor in the most distal 2 cmmof the urter right 03/2021: Same findings. High tujmor burden in lower right ureter 02/2022: TURBT, No RG? 09/08/2022: TURBT again. No RG 01/05/2022 PSA <0.02, Scr 0.8 and GFR 85 01/05/2022 CT a/p severe right hydro, distal ureteral mass, 10cm splenic mass, no HARDY 04/21/2021 CT chest stable pulmonary nodules and post surgical changes 04/21/2021 PSA <0.03 04/01/2021 Right ureteroscopy ++ tumor 03/11/2021 CT abd right hydro, ureteral tumors, no LN 02/04/2021 TURBT LG superficial UCC, ++ right ureteral tumor 12/31/2020 PSA <0.03, Scr 0.9 07/22/2020 CT a/p ([place]) right renal cyst 04/30/2020 PSA <0.03 10/12/2018 PSA 0.21 08/16/2018 PSA 0.48 10/07/2017 Cysto, bbx LG superficial UCC 02/21/2014 right lower lobectomy along with mediastinal lymph node dissection 12/28/2013 Bladder bx (Nichelle) neg Assessment and Plan: Prostate cancer- pt with stage I non-small cell lung Ca, ++ h/o metastatic (bone mets) Janis 6 and 7 ( 3+4) prostate cancer s/p XRT in about 2011, currenty on Lupron Q 3 mths as well as taking Zytiga 1000mg/prednisone 5mg QD per Dr Perkins @ [facility] - PSA 01/16 stable @ <0.02 bladder UCC- pt with ++ h/o superficial bladder cancer initially dx [address] Steward then saw Dr Cavazos - latest cysto 06/2021 negative 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 Also explained that this is not amenable for endoscopic management. Also explained that this is the first time his pathology shows some areas of high grade features. However also explained the long course of his disease (knew about for a long time) with no signs of spread, although there are suggestions of progression (pathology, tumor burden, hydronephrosisP PLAN - discussed with the patient the diferent options. NephroU vs surveillance Will proceed with a nephroU Ruthann Clay MD [facility] of Present illness Narrative* Ned Levine MD - 01/26/2023 1:36 PM EDT Attending Note I evaluated the patient and personally participated in the roth components. I agree with the resident's findings and plan as documented and have discussed the case and management of the patient's carewith the resident. Signature: Ned Levine MD Date: 01/26/2023 Time: 1:36 PM [facility] History and physical note * Fabienne Lazo MD - 01/26/2023 10:40 AM EDT HISTORY AND PHYSICAL EXAMINATION SERVICE DATE: January 26, 2023 SERVICE TIME: 9:12 AM PRIMARY CARE PHYSICIAN: Kya Hinton MD REASON FOR VISIT: Isaias Slaughter is a 87 year old male who is scheduled for RESECTION BLADDER TUMOR TRANSURETHRAL, CYSTOURETHROSCOPY W/ URETEROSCOPY AND/OR PYELOSCOPY W/ RESECTION URETERAL OR RENAL PELVIC TUMOR, INSERTION STENT DOUBLE J at the request of Dr. Ruthann Clay for consultation. My final recommendation will be communicated back to the requesting physician by way of shared medical record or letter. The patient has the following: ACTIVE PROBLEM LIST Prostate Cancer (Hcc) Essential Hypertension Gastroenteritis and Colitis Due to Radiation Diverticulosis of Colon (Without Mention of Hemorrhage) Benign Neoplasm of Colon Malignant Neoplasm of Bladder (Hcc) Radiation Cystitis Presence of Bare Metal Stent in Right Coronary Artery Hld (Hyperlipidemia) Cad (Coronary Artery Disease) Mediastinoscopy, right thoracotomy, right lower lobectomy 02/21/14 Carcinoma of Lung (Hcc) History of Basal Cell Carcinoma Ak (Actinic Keratosis) 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) Left Inguinal Hernia Prediabetes Mediastinal Mass Malignant Neoplasm Metastatic to Intrathoracic Lymph Node (Hcc) 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 Patient has a history of metastatic prostate cancer, bladder cancer (2013) now with right distal obstructing urothelial cancer vs stricture. Plan for right stent placement and biopsy. Denies any fever, chills, nausea, vomiting, chest pain, abdominal pain, SOB. Above procedure is recommendedto manage symptoms. Patient is scheduled for surgery on 01/29/2023. 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 Malignant 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 (HCC) Malignant neoplasm of urinary bladder (HCC) Other and unspecified hyperlipidemia Hyperlipidemia PERS HX SKIN MALIGNANCY NEC 11/08/2006 Ureteral cancer (HCC) PAST SURGICAL HISTORY Procedure Laterality Date ANES TRANSURETHRAL RESECTION OF BLADDER TUMOR 2012 ANES TRANSURETHRAL RESECTION OF BLADDER TUMOR 2010 APPENDECTOMY 194 BLADDER BIOSPY FULGUR 2018 CARDIAC 2013 stent to RCA CATARACT EXTRACTION W/ INTRAOCULAR LENS IMPLANT HX Right COLON SURGERY HX 2019 COLONOSCOPY FLX DX W/COLLJ SPEC WHEN PFRMD 08/25/2012 Colonoscopy report 5 years COLSC FLX W/RMVL OF TUMOR POLYP LESION SNARE TQ 12/30/2006 CYSTOSCOPY,+URETEROSCOPY Right 03/2021 CYSTOURETHROSCOPY,FULGUR .5-2CM LESN 01/2021 CYSTOURETHROSCOPY,FULGUR .5-2CM LESN 2011 EGD REMOVAL TUMOR POLYP/OTHER LESION SNARE TECH 02/2022 done at [facility] PAST SURGICAL HISTORY OF 2001 TURB BLADDER CANCER PAST SURGICAL HISTORY OF 2013 cardiac stent x1 RMVL LUNG OTHER THAN PNEUMONECTOMY 1 LOBE LOBECT 02/21/2014 Mediastinoscopy, right posterolateral thoracotomy, right lower lobectomy, lymphadenectomy, rib blocks RPR 1ST INGUN HRNA AGE 6 YRS/> REDUCIBLE Left 03/19/2017 SIGMOIDOSCOPY FLX DX W/COLLJ SPEC BR/WA IF PFRMD Sigmoidoscopy TONSILLECTOMY PRIMARY/SECONDARY <AGE 13 Tonsillectomy FAMILY HISTORY Problem Relation Age of Onset Heart Mother Heart Father Ischemic Heart Disease Father Hypertension Brother Lipids Brother None No Family History No lung disease. SOCIAL HISTORY: Social History Tobacco Use Smoking status: Former Packs/day: 1.00 Years: 12.00 Pack years: 12.00 Types: Cigarettes Start date: 1953 Quit date: 09/27/1964 Years since quittin.3 Smokeless tobacco: Never Tobacco comments: ETS: Father smoked in childhood home, then quit. Spouse non-smoker. Vaping Use Vaping Use: Never used Substance Use Topics Alcohol use: No Drug use: No MEDICATIONS: Prior to Admission medications as of 01/20/23 1630 Medication Sig Last Dose Taking abiraterone 250 mg tablet Take four tablets by mouth once daily. enzalutamide (XTANDI) 40 mg tablet Take 4 tablets (160 mg) by mouth once daily. Start only after completion of current supply of zytiga predniSONE (DELTASONE) 5 mg tablet Take 1 tablet by mouth once daily. Take with breakfast amLODIPine (NORVASC) 5 mg tablet Take 1 tablet by mouth once daily. FLUoxetine (PROZAC) 10 mg capsule Take 1 capsule by mouth once daily. losartan (COZAAR) 100 mg tablet Take 1 tablet by mouth once daily. potassium chloride ER (K-DUR, KLOR-CON) 20 mEq tablet Take 1 tablet by mouth once daily. folic acid 1 mg tablet Take 1 tablet by mouth once daily. Calcium Citrate 250 mg calcium tab Take 1 tablet by mouth once daily. Cholecalciferol, Vitamin D3, (VITAMIN D) 25 mcg (1,000 unit) cap Take 1 capsule by mouth once daily. aspirin (CHILDRENS ASPIRIN) 81 mg chewable tablet Take 1 tablet by mouth once daily. Phajsqauckbva-Mpwasvsl-Monsgc (CENTRUM SILVER) tab Take 1 tablet by mouth once daily. No medication comments found. CURRENT ALLERGIES: ALLERGIES Allergen Reactions Amoxicillin Diarrhea, GI Upset Patient cannot tolerate this medication Lisinopril Cough Goognrf-Buo-Yec Red* Other: See Comments Patient states he will not take statins because of what they did to his . COVID VACCINATION STATUS: Vaccinated x2 REVIEW OF SYSTEMS: PAIN ASSESSMENT: General: No weight loss, malaise or fevers. Neuro: No history of TIA's, stroke, SYSTEMS DEVELOPMENT MANAGER tumor, impaired sensorium, hemiplegia, paraplegia or quadraplegia. No neurological symptoms or problems. Respiratory: No history of current cough or dyspnea, or pneumonia in the past 6 weeks. +Hx lung cancer s/p right lower lobectomy (2013) Cardiovascular: +CAD, +HTN, +HLD GI: +Hx of gastroenteritis/colitis 2/2 radiation : See HPI Endocrine: No history of diabetes. Has not taken steroids within the past 30 days. No history of endocrinological symptoms or problems. Hematology: +On aspirin 81 Oncology: See HPI Psych: No history of psychiatric symptoms or problems. Musculoskeletal: Negative for joint pain or swelling, back pain or muscle pain. Skin: Negative for lesions, rash and itching. Objective PHYSICAL EXAM: VITALS: BP 164/73[reported to Provider[ Pulse 58 Temp (Src) 97.4 (Temporal) Ht 5' 6 (1.68m) Wt 166lb 6.4 oz (75.5kg) SpO2 96% BMI 26.87 kg/(m^2). General: Alert and oriented Skin: Normal color, no rash, no lesions. HEENT: EOM, pupils equal, round and reactive. Cardiovascular: Normal S1 & S2, no rubs, murmurs or gallops. No JVD. Lungs: Normal breath sounds, no wheezes or crackles. Abdomen: Positive bowel sounds Extremities: No deformity, no edema or tenderness, no joint swelling or clubbing. Neurological: Normal cognition and motor skills. Pulses: Radial pulses 2+ Diagnostic tests reviewed for today's visit: Lab Value Units Date High Low HB 14.6 g/dL 12/30/2022 17.0 13.0 HCT 44.4 % 12/30/2022 51.0 39.0 WBC 9.75 k/uL 12/30/2022 11.00 3.70 PLT 501 k/uL 12/30/2022 400 150 NA 138 mmol/L 12/30/2022 144 136 K 4.5 mmol/L 12/30/2022 5.1 3.7 GLUC 104 mg/dL 12/30/2022 99 74 BUN 18 mg/dL 12/30/2022 24 9 CREAT 1.17 mg/dL 12/30/2022 1.22 0.73 PTSEC No results within date range. INR No results within date range. APTT No results within date range. ALT 9 U/L 12/07/2022 54 10 AST 15 U/L 12/07/2022 40 14 TBILI 0.5 mg/dL 12/07/2022 1.3 0.2 TSH No results within date range. Lab Value Units Date High Low HCGQT No results within date range. UHCG No results within date range. HCG, BODY* No results within date range. Lab Value Units Date High Low ABORHD No results within date range. ABSCREEN No results within date range. Hemoglobin A1C (%) Date Value 10/14/2021 5.6 09/16/2018 5.8 08/09/2017 5.7 Recent Results (from the past 8760 hour(s)) ECG COMPLETE Collection Time: 03/17/22 9:56 AM Result Value Ventricular Rate 76 Atrial Rate 76 P-R Interval 190 QRS Duration 84 QT Interval 454 QTC Calculation (Bazett) 510 Calculated P Columbia 30 Calculated R Columbia -20 Calculated T Columbia 65 Impression SINUS RHYTHM WITH OCCASIONAL PREMATURE VENTRICULAR COMPLEXES LOW VOLTAGE QRS INFERIOR INFARCT , AGE UNDETERMINED PROLONGED QT ABNORMAL ECG NO PREVIOUS ECGS AVAILABLE Confirmed by MD RODRIGUEZ FERNANDO ([id number]) on 03/17/2022 3:56:43 PM Echocardiogram 08/31/2022 Left ventricular systolic function is normal. The estimated ejection fraction is 70 %. The left atrium is mildly enlarged. Mild (1+) eccentric mitral valve insufficiency. Moderate focal aortic valve calcification. No evidence for diastolic dysfunction. Pharmacologic nuclear stress test 08/31/2022 Impression: 1. Rest and stress SPECT Cardiolite nuclear imaging demonstrate myocardial perfusion changes at rest which appear to improve/normalize following stress appearing compatible with shifting soft tissue attenuation/artifact with no myocardial perfusion changes considered diagnostic for associated stress-induced myocardial ischemia. 2. The gated Cardiolite study reports an LVEF of 71%. Assessment/Plan CAD (coronary artery disease) s/p BMS mid RCA 09/12/2013. On ASA. Carcinoma of lung (HCC) s/p right lower lobectomy 2014 - in remission Essential hypertension Stable on amlodipine 5 mg, losartan 100 mg. Prostate cancer (HCC) On abiraterone and prednisone 5 mg. METS: Climb a flight of stairs or walk up a hill (5.50 METs) ASA Class: 3 ANESTHESIA FINDINGS: Intubation History: No history of difficult intubation Significant Anesthesia Considerations: None Airway Exam: General: Normal appearance Mallampati Score is CLASS II ULBT: Class I - Lower incisors can bite the upper lip above the marilu line Neck: Distance from hyoid to mentum during neck extension is at least 3 finger breaths Mouth: Normal tongue size Dentition: Upper denture full, lower teeth missing few Airway History: No abnormal airway history PLAN This patient is optimally prepared for surgery pending LABS and EKG. CONSULTS: Patient does not require consults for optimization at this time. Planned Anesthetic: Per anesthesia choice Instructions Given to Patient: Instructions located in the after visit summary. Patient given verbal and written preop instructions and voices comprehension and compliance. SIGNATURE: Fabienne Lazo MD PATIENT NAME: Isaias Slaughter DATE: January 26, 2023 TIME: 9:12 AM documented in this encounterUniversity Hospitals Geaug[facility] Center05-02-2023 Instructions* Patient Instructions* Fabienne Lazo MD - 01/26/2023 9:29 AM EDT PATIENT PREOPERATIVE INSTRUCTIONS No ref. provider found has scheduled you for your procedure at this surgery center: [facility] Scheduling Office: [phone] --[address] [place] [address]. Please read below carefully for your personalized instructions. Dietary Restrictions: - No solid food after midnight. - You may have 12 ounces of clear liquids (water, clear juices such as apple juice or gatorade, carbonated beverages, clear tea, black coffee, jello) until 2 hours before scheduled arrival at facility. Is Patient Diabetic:No Medications: Unless instructed differently below, stay on all of your medications until your surgery. Do not take losartan night before or morning of surgery If you start any new medications after today's visit, please contact the surgeon's office. Blood Thinning Medications: - Stop NSAIDS (Ibuprofen, Advil, Aleve, Motrin, Celebrex, Mobic, etc.) 7 days before surgery, as directed by your surgeon. - Stop Vitamin E, ALL multi-vitamins, herbals and dietary supplements 7 days before surgery. Important Reminders: - Candy, mints, and tobacco products are NOT permitted the morning of surgery. - Hearing aids, dentures and glasses may be worn the morning of surgery. - NO jewelry, body piercings, makeup, hairpins or contacts are to be worn the day of surgery. If you develop symptoms such as a fever, cold, or flu, or have other changes to your health within TWO DAYS of scheduled surgery or the morning of surgery, please contact the surgery center above. Personal Belongings: -Please have photo ID and insurance cards. -If you do not have a copy of advance directives on file with us, please bring a copy with you on the day of surgery. - Leave ALL valuables and money at home or with family members. For Outpatient Procedures: - YOU MUST HAVE A RESPONSIBLE TIE SAWYER TAKE YOU HOME. A BAG CHECKER OR LEVEL VIAL SETTER CANNOT BE MADE A RESPONSIBLE TIE SAWYER. - We recommend that a responsible person stays with you overnight to take care of you. - You cannot stay in a hotel alone after outpatient surgery. You will not be permitted to have yoursurgery, if you do not have someone to take care of you. Arrival Time for Surgery: - To obtain your arrival time for surgery, call your physician's office the day before your surgery. - If your surgery is scheduled for Wednesday, call the Wednesday before. Your surgeon s equipment scheduler will tell you what time to call the office. - If you have not reached the departmental equipment scheduler by 5 P.M., call [phone] after 5 P.M. the day before your surgery. Please be aware that emergency situations arise, which may delay or change your surgical time. If this happens, we will notify you as soon as possible and regret any inconvenience. If you already have an Advance Directive, please fax a copy to [phone] or email to for it to be added to your chart. If you do not have an Advance Directive, you can find the appropriate form and more information at [email or web address]. We recommend that youcomplete the Advance Directive form found on the website and bring it with you the day of your surgery. It can be witnessed and scanned into your chart that day. Fabienne Lazo MD documented in this encounterUniversity Hospitals Geauga Medical Center04-27-2023 Miscellaneous Notes* Telephone Encounter - Ekaterina Petty - 01/21/2023 2:26 PM EDT Apt changed as directed * Telephone Encounter - Isaias Mahoney DO - 01/21/2023 1:07 PM EDT Looks like he is scheduled for cystoscopy on 01/29. Nothing for me to do at this time other than request we change his office visit on 03/03 to me or move it to Dr. Canseco on 03/04 or 03/05. Isaias Mahoney DO * Telephone Encounter - Sailaja Sesay - 01/05/2023 12:33 PM EDT Please make sure Dr. Lemus sees the office note from Dr. Beavers on 01/20/[address] Lemus and patient's resquest. Sailaja Sesay documented in this encounterUniversity Hospitals Geauga Medical Center04-26-2023 History of Present illness Narrative* Ralph Carrero MD - 01/20/2023 4:30 PM EDT REASON FOR VISIT: Follow up for hydronephrosis HPI: 87 yo male with pmh of metastatic prostate cancer on lupron and extandi (managed by hematology), bladder cancer (2013) Non-invasive low-grade papillary urothelial carcinoma, radiation, hydronephrosis with ureteral stricture vs distal urothelial lesion. Was first noticed in 02/2021 and patient was offered right NephroU but refused. Does not appear that ureteroscopy was done per patient and electronic record. Seen by Maty Nick CNP (12/30/22)- referred to urology oncology for surgical intervention US kidney completed (12/10/22) Noted severe right-sided hydronephrosis and hydroureter PATHOLOGY: Multiple low grade non invasive bladder cancer LABS: Creatinine Date Value Ref Range Status 12/30/2022 1.17 0.73 - 1.22 mg/dL Final 12/17/2022 1.08 0.73 - 1.22 mg/dL Final 12/07/2022 1.20 0.73 - 1.22 mg/dL Final 09/16/2022 1.05 0.73 - 1.22 mg/dL Final PSA (ng/mL) Date Value 12/07/2022 <0.02 09/16/2022 <0.02 07/10/2022 <0.02 06/19/2022 <0.02 10/14/2021 <0.02 07/22/2021 <0.03 04/21/2021 <0.03 12/31/2020 <0.03 IMAGING: Ultrasound kidney (12/10/22): Again noted is severe right-sided hydronephrosis and hydroureter ALLERGIES: ALLERGIES Allergen Reactions Amoxicillin Diarrhea, GI Upset Patient cannot tolerate this medication Lisinopril Cough Aqafxuu-Ysz-Ulm Red* Other: See Comments Patient states he will not take statins because of what they did to his . MEDICATIONS: Current Outpatient Medications Medication Sig abiraterone (ZYTIGA) 250 mg tablet Take four tablets by mouth once daily. enzalutamide (XTANDI) 40 mg tablet Take 4 tablets (160 mg) by mouth once daily. Start only after completion of current supply of zytiga predniSONE (DELTASONE) 5 mg tablet Take 1 tablet by mouth once daily. Take with breakfast amLODIPine (NORVASC) 5 mg tablet Take 1 tablet by mouth once daily. FLUoxetine (PROZAC) 10 mg capsule Take 1 capsule by mouth once daily. losartan (COZAAR) 100 mg tablet Take 1 tablet by mouth once daily. potassium chloride ER (K-DUR, KLOR-CON) 20 mEq tablet Take 1 tablet by mouth once daily. folic acid 1 mg tablet Take 1 tablet by mouth once daily. Calcium Citrate 250 mg calcium tab Take 1 tablet by mouth once daily. Cholecalciferol, Vitamin D3, (VITAMIN D) 25 mcg (1,000 unit) cap Take 1 capsule by mouth once daily. aspirin (CHILDRENS ASPIRIN) 81 mg chewable tablet Take 1 tablet by mouth once daily. Qfkaysajuilec-Dbhhuwoc-Sivifp (CENTRUM SILVER) tab Take 1 tablet by mouth once daily. No current facility-administered medications for this visit. 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 Malignant 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 (HCC) Malignant neoplasm of urinary bladder (HCC) Other and unspecified hyperlipidemia Hyperlipidemia PERS HX SKIN MALIGNANCY NEC 11/08/2006 Ureteral cancer (HCC) PAST SURGICAL HISTORY Procedure Laterality Date ANES TRANSURETHRAL RESECTION OF BLADDER TUMOR 2012 ANES TRANSURETHRAL RESECTION OF BLADDER TUMOR 2010 APPENDECTOMY 194 BLADDER BIOSPY FULGUR 2018 CARDIAC 2013 stent to RCA CATARACT EXTRACTION W/ INTRAOCULAR LENS IMPLANT HX Right COLON SURGERY HX 2019 COLONOSCOPY FLX DX W/COLLJ SPEC WHEN PFRMD 08/25/2012 Colonoscopy report 5 years COLSC FLX W/RMVL OF TUMOR POLYP LESION SNARE TQ 12/30/2006 CYSTOSCOPY,+URETEROSCOPY Right 03/2021 CYSTOURETHROSCOPY,FULGUR .5-2CM LESN 01/2021 CYSTOURETHROSCOPY,FULGUR .5-2CM LESN 2011 EGD REMOVAL TUMOR POLYP/OTHER LESION SNARE TECH 02/2022 done at [facility] PAST SURGICAL HISTORY OF 2001 TURB BLADDER CANCER PAST SURGICAL HISTORY OF 2013 cardiac stent x1 RMVL LUNG OTHER THAN PNEUMONECTOMY 1 LOBE LOBECT 02/21/2014 Mediastinoscopy, right posterolateral thoracotomy, right lower lobectomy, lymphadenectomy, rib blocks RPR 1ST INGUN HRNA AGE 6 YRS/> REDUCIBLE Left 03/19/2017 SIGMOIDOSCOPY FLX DX W/COLLJ SPEC BR/WA IF PFRMD Sigmoidoscopy TONSILLECTOMY PRIMARY/SECONDARY <AGE 13 Tonsillectomy REVIEW OF SYSTEMS General: No weight loss, malaise or fevers, No weight loss, malaise or fevers., SEE HPI Genitourinary: No history of dysuria, frequency or incontinence The remainder of the ROS was reviewed and negative. PHYSICAL EXAMINATION There were no vitals taken for this visit. 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 SERVICE DATE: January 05, 2023 CHIEF COMPLAINT: Isaias Slaughter is a 87 year old male returning today for follow up of his prostate lung and noninvasive bladder cancer INTERVAL HISTORY: Very nice 87-year-old white male with his daughter for oncologic surveillance of multiple cancers. He had localized right lower lobe lung cancer diagnosed in January 2014. He underwent lobectomy. He also had prostate cancer diagnosed around that time that was treated with external beam radiation. He had a history for recurrent noninvasive bladder cancers. They have been removed through a TURB. In addition Diagnostic Studies: Reviewed CURRENT MEDICATIONS: abiraterone (ZYTIGA) 250 mg tablet Take four tablets by mouth once daily. predniSONE (DELTASONE) 5 mg tablet Take 1 tablet by mouth once daily. Take with breakfast amLODIPine (NORVASC) 5 mg tablet Take 1 tablet by mouth once daily. FLUoxetine (PROZAC) 10 mg capsule Take 1 capsule by mouth once daily. losartan (COZAAR) 100 mg tablet Take 1 tablet by mouth once daily. potassium chloride ER (K-DUR, KLOR-CON) 20 mEq tablet Take 1 tablet by mouth once daily. folic acid 1 mg tablet Take 1 tablet by mouth once daily. Calcium Citrate 250 mg calcium tab Take 1 tablet by mouth once daily. Cholecalciferol, Vitamin D3, (VITAMIN D) 25 mcg (1,000 unit) cap Take 1 capsule by mouth once daily. aspirin (CHILDRENS ASPIRIN) 81 mg chewable tablet Take 1 tablet by mouth once daily. Hubfljvfdamob-Qlxuerxy-Cwxvou (CENTRUM SILVER) tab Take 1 tablet by mouth once daily. [START ON 01/08/2023] enzalutamide (XTANDI) 40 mg tablet Take 4 tablets (160 mg) by mouth once daily. Start only after completion of current supply of zytiga ALLERGIES/INTOLERANCES: ALLERGIES Allergen Reactions Amoxicillin Diarrhea, GI Upset Patient cannot tolerate this medication Lisinopril Cough Ysbuezd-Snz-Elc Red* Other: See Comments Patient states he will not take statins because of what they did to his . ROS: Denies abdominal pain , hematuria dysuria or other urinary problems Denies shortness of breath, pleuritic discomfort or hemoptysis Denies bone pain or symptoms that suggest cord compression PHYSICAL EXAM: BP 145/79 Pulse 60 Temp 36.4 C (97.6 F) (Temporal) Wt 76.4 kg (168 lb 8 oz) BMI 27.2 kg/m2 Body mass index is 27.2 kg/m . ECO No palpable masses No lymphadenopathy No hepatosplenomegaly Lungs are clear to auscultation percussion No JVD S3 or S4 DATA REVIEW: I personally reviewed the patient's data and medical records. PERTINENT LABS: Reviewed PERTINENT IMAGING: Reviewed ASSESSMENT AND Plan Patient continues with his supply of Zytiga which will be finished in 4 weeks or so. Once this happens he will start Xtandi 160 mg daily. We will continue to monitor his PSA He was recently evaluated at [facility] urology for hydronephrosis. His creatinine has remained within normal limits. He is being referred to urologic oncology. This is important since I did not see any documentation of recurrent ureteral urothelial cancer. Depending on the assessment and findings we will discuss if stent placement is needed We will see him when he comes for Lupron injection but obviously will communicate earlier once we have urologic oncology evaluation completed The patient was able to ask questions and these were answered in detail. Haydee Lemus MD cc: Haydee Hinton MD documented in this encounterUniversity Hospitals Geauga Medical Center04-11-2023 Miscellaneous Notes* Telephone Encounter - Sudha Kim RN - 01/05/2023 12:08 PM EDT Patient to continue on Zytiga until out of medication that he already has at home. States he still has a full bottle left after dose for tomorrow. This should last him another month. Patient agreed to call me a few days prior to last dose of Zytiga to review dosing of Xtandi and education prior to starting. Patient received Xtandi at home on 12/28/22. Patient here today for OV with Dr. Lemus. Hayley Kim RN * Telephone Encounter - Sudha Kim RN - 01/05/2023 11:47 AM EDT ORAL ANTI-CANCER AGENTS EDUCATION patient and daughter here today for oral medication education for Xtandi (enzalutamide) for Prostate Cancer READINESS TO LEARN Cognitive Ability: Alert and oriented Motivation to Learn: Interested Family Support: High - Very involved in pt care Instruction Provided to: Patient and Daughter Patient learns best by: Multiple Methods Factors affecting learning: None Physical limitation affecting learning: None ROTH ASSESSMENT: 1.) Verified that patient knows that the oral agents are for cancer and are taken by mouth. Yes 2.) Medication reconciliation completed during visit. Yes 3.) Patient is able to swallow pills. Yes 4.) Patient is able to read the drug label/information. Yes 5.) Patient is able to open the medication bottles and packages. Yes 6.) Has patient taken other pills for cancer? YES, please explain: Zytiga 7.) Is patient experiencing any symptoms that would affect their ability to keep down pills, for example nausea or vomiting? No 8.) Verified that patient understands prescription delivery, benefit investigation and refill process. Yes PATIENT EDUCATION: 1.) Verified that patient attended individualized instruction on chemotherapy taught by a nurse. Yes 2.) Verified that patient received Chemotherapy Safety in the Home handout, ChemoCare Medication Information handout: Xtandi, and ACS Oral Chemotherapy booklet: Yes DRUG-SPECIFIC EDUCATION: 1.) Verified that patient knows the drug name. Yes 2.) Verified patient understands the dose and schedule of oral chemo agent:with water, with or without food. Yes 3.) Verified patient knows what to do if a medication dose is missed. Yes 4.) Verified patient understands where to store the drug. Yes 5.) Verified patient understands potential side effects and how to manage them. Yes Diarrhea, Headache, Neutropenia, Fatigue, Peripheral Edema, Myalgia, and Arthalgia 6.)Verified that patient understands handling precautions of oral chemo agent. Yes 7.) Verified that patient understands when and whom to call with questions. Yes 8.) Verified that patient understands where and how to return drug. Yes EVALUATE: Patient was able to demonstrate an understanding of all the above education using the teach-back method. Yes Patient instructed to call us with any questions, concerns, and/or unresolved symptoms. Will continue to follow up with patient and provide reinforcement of teaching topics as needed. Total time spent with patient: 20 minutes minutes Total time spent on encounter: 25 minutes minutes Sudha Kim RN documented in this encounterUniversity Hospitals Geauga [facility] Center04-05-2023 Miscellaneous Notes* Telephone Encounter - Maty Canchola APRN.CNP - 12/30/2022 4:00 PM EDT Called pt to discuss stable blood work results. Verb understanding. Maty Canchola APRN.CNP documented in this encounterUniversity Hospitals Geauga Medical Center04-05-2023 History of Present illness Narrative* Maty Canchola APRN.CNP - 12/30/2022 11:16 AM EDT COUNT INCLUDES THE [facility] M[facility] PATIENT - HISTORY AND PHYSICAL EXAMINATION PATIENT: Isaias Slaughter Patient has been identified by name and date of : Yes PCP: Kya Hinton MD CHIEF COMPLAINT: hydronephrosis HISTORY OF PRESENT ILLNESS: Isaias Slaughter is a 87 year old male presenting today for: severe right sided hydronephrosis. Pt has a hx of prostate cancer, bladder cancer, radiation, and hydronephrosis with ureteral stricture. Severe hydronephrosis was seen on recent US of kidney/bladder on 12/10/2022. Ordered by heme/ onc, Dr. Lemus, who is suggesting stent placement. Pt today with a PVR of 13ml and no bothersome LUTS. Pt reports a possible tumor blocking kidney outlet. Most recent CT of abd/pelvis on 07/10/2022 reveals cysts and low density foci bilaterally, as well as stable splenic mass. Previous CT on 01/05/2022 reveals a distal ureteral/bladder lesion suspected and increase in size of splenic mass. He is followedby Dr. Toro, who suggested a nephroureterectomy, which pt declined due to advanced age. Pt would like a second opinion. His creatinine is stable at 1.08. Review: Daytime frequency: Q 1-2 Hrs; all the time Night time frequency: 3-4X Drinking: water, coffee, electrolyte drinks. Irritative (STORAGE) symptoms: - Bothersome frequency:No - Urgency: No - Incontinence: Stress No / Urge No Obstructive symptoms: - Force of stream Good - Hesitancy No - Intermittency: No - Straining: No - Incomplete emptying: No - Double voiding: No - Postvoid dribbling: Yes, occasionally when in a reynolds Current Urinary Status: - Indwelling catheter: No - Current intermittent Catheterization: No - Gross hematuria: No - UTI: No REVIEW OF SYSTEMS: relevant updates noted in HPI PAST MEDICAL HISTORY: 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 Malignant 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 (HCC) Malignant neoplasm of urinary bladder (HCC) Other and unspecified hyperlipidemia Hyperlipidemia PERS HX SKIN MALIGNANCY NEC 11/08/2006 Ureteral cancer (HCC) PAST SURGICAL HISTORY Procedure Laterality Date ANES TRANSURETHRAL RESECTION OF BLADDER TUMOR 2012 ANES TRANSURETHRAL RESECTION OF BLADDER TUMOR 2010 APPENDECTOMY 1946 BLADDER BIOSPY FULGUR 2018 CARDIAC 2013 stent to RCA CATARACT EXTRACTION W/ INTRAOCULAR LENS IMPLANT HX Right COLON SURGERY HX 2019 COLONOSCOPY FLX DX W/COLLJ SPEC WHEN PFRMD 08/25/2012 Colonoscopy report 5 years COLSC FLX W/RMVL OF TUMOR POLYP LESION SNARE TQ 12/30/2006 CYSTOSCOPY,+URETEROSCOPY Right 03/2021 CYSTOURETHROSCOPY,FULGUR .5-2CM LESN 01/2021 CYSTOURETHROSCOPY,FULGUR .5-2CM LESN 2011 EGD REMOVAL TUMOR POLYP/OTHER LESION SNARE TECH 02/2022 done at [facility] PAST SURGICAL HISTORY OF 2001 TURB BLADDER CANCER PAST SURGICAL HISTORY OF 2013 cardiac stent x1 RMVL LUNG OTHER THAN PNEUMONECTOMY 1 LOBE LOBECT 02/21/2014 Mediastinoscopy, right posterolateral thoracotomy, right lower lobectomy, lymphadenectomy, rib blocks RPR 1ST INGUN HRNA AGE 5 YRS/> REDUCIBLE Left 03/19/2017 SIGMOIDOSCOPY FLX DX W/COLLJ SPEC BR/WA IF PFRMD Sigmoidoscopy TONSILLECTOMY PRIMARY/SECONDARY <AGE 13 Tonsillectomy Social History Tobacco Use Smoking status: Former Packs/day: 1.00 Years: 12.00 Pack years: 12.00 Types: Cigarettes Start date: 1953 Quit date: 09/27/1964 Years since quittin.2 Smokeless tobacco: Never Tobacco comments: ETS: Father smoked in childhood home, then quit. Spouse non-smoker. Vaping Use Vaping Use: Never used Substance Use Topics Alcohol use: No Drug use: No FAMILY HISTORY Problem Relation Age of Onset Heart Mother Heart Father Ischemic Heart Disease Father Hypertension Brother Lipids Brother None No Family History No lung disease. MEDICATIONS: reviewed and confirmed with patient OFFICE DATA: labs reviewed POST-VOID RESIDUAL BLADDER VOLUME: 13 cc URINALYSIS: pending OTHER DATA: Labs reviewed Creatinine Date Value Ref Range Status 12/17/2022 1.08 0.73 - 1.22 mg/dL Final 12/07/2022 1.20 0.73 - 1.22 mg/dL Final 09/16/2022 1.05 0.73 - 1.22 mg/dL Final 07/10/2022 1.12 0.73 - 1.22 mg/dL Final PHYSICAL EXAMINATION: General appearance: cooperative, pleasant, no acute distress, alert and oriented, well nourished male. Neuro: normal affect, normal speech, gait is normal. Lungs/chest: no signs of respiratory distress, no audible wheezing Extremities: no edema, normal motor function. Back: no CVA tenderness Abdomen: no suprapubic distention deferred ASSESSMENT: 1. Hydronephrosis with ureteral stricture, not elsewhere classified - ICD9: 591, ICD10: N13.1 PLAN: (N13.1) Hydronephrosis with ureteral stricture, not elsewhere classified (primary encounter diagnosis) - minimal PVR at 13ml with no bothersome LUTS -CBC, BMP ordered to monitor for infection and kidney function -pt referred to urology/oncology for possible surgical intervention The results of tests will be communicated to patient via . Patient verbalized understanding. Maty Canchola APRN.ACQUISITIONS ASSISTANT Location: MAIN documented in this encounterUniversity Hospitals [facility]04-05-2023 Nurse Note* Zenobia Yoder MA - 12/30/2022 11:16 AM EDT Pvr 13 documented in this encounterUniversity Hospitals Geaug[facility] Center04-04-2023 Miscellaneous Notes* Telephone Encounter - Susie Dean RPh - 12/29/2022 5:43 PM EDT Patient has been enrolled to receive free Xtandi through the [employer] Program with approval dates 12/18/2022 through 09/26/2023. [employer] program contact number is [phone]. The medication will now ship through their contracted dispensing pharmacy, [facility] initiates free drug copay assistance for new medications as a one time courtesy. Re-enrollment should be facilitated by the treating physician's office. We will assist with obtaining PArenewal letters if/when requested by office via new prescription that can be sent to our pharmacy. No further action is needed by [facility] at this time. Susie Dean, LexiD Clinical Pharmacist, Oncology [facility] P: , F: Pool: P [facility] Pool #: [id number] documented in this encounterUniversity Hospitals Geauga [facility] Center03-23-2023 Miscellaneous Notes* Telephone Encounter - Danielle Burroughs LPN - 12/17/2022 4:48 PM EDT Should be seen much sooner.In December per dr. Mariah Burroughs LPN * Telephone Encounter - Sailaja Sesay - 12/17/2022 3:02 PM EDT Per check out note, patient to be scheduled with Dr. Smith in 2-[address] Smith's first available appointment isn't until February 04 (7 weeks). Patient wants to know if that is ok with Dr. Lemusto wait that long or if he should be seen sooner. Sailaja Sesay documented in this encounterUniversity Hospitals Geauga Medical Center03-23-2023 History of Present illness Narrative* Haydee Lemus MD - 12/17/2022 4:01 PM EDT Images from the original note were not included. SERVICE DATE: December 17, 2022 CHIEF COMPLAINT: Isaias Slaughter is a 87 year old male returning today for follow up of his prostate cancer and a right hydronephrosis INTERVAL HISTORY: Very pleasant 87-year-old white gentleman accompanied by his daughter for oncologic surveillance and discussion of results of kidney ultrasound that I ordered. He continues to do well without any local or systemic problems Diagnostic Studies: Reviewed CURRENT MEDICATIONS: [START ON 01/08/2023] enzalutamide (XTANDI) 40 mg tablet Take 4 tablets (160 mg) by mouth once daily. Start only after completion of current supply of zytiga predniSONE (DELTASONE) 5 mg tablet Take 1 tablet by mouth once daily. Take with breakfast amLODIPine (NORVASC) 5 mg tablet Take 1 tablet by mouth once daily. FLUoxetine (PROZAC) 10 mg capsule Take 1 capsule by mouth once daily. losartan (COZAAR) 100 mg tablet Take 1 tablet by mouth once daily. abiraterone (ZYTIGA) 250 mg tablet Take 4 tablets by mouth once daily. potassium chloride ER (K-DUR, KLOR-CON) 20 mEq tablet Take 1 tablet by mouth once daily. folic acid 1 mg tablet Take 1 tablet by mouth once daily. Calcium Citrate 250 mg calcium tab Take 1 tablet by mouth once daily. Cholecalciferol, Vitamin D3, (VITAMIN D) 25 mcg (1,000 unit) cap Take 1 capsule by mouth once daily. aspirin (CHILDRENS ASPIRIN) 81 mg chewable tablet Take 1 tablet by mouth once daily. Kxpnimrxhuayv-Wbsyjayk-Kalxcy (CENTRUM SILVER) tab Take 1 tablet by mouth once daily. ALLERGIES/INTOLERANCES: ALLERGIES Allergen Reactions Amoxicillin Diarrhea, GI Upset Patient cannot tolerate this medication Lisinopril Cough Vgezcbc-Qqg-Lvm Red* Other: See Comments Patient states he will not take statins because of what they did to his . ROS: Denies hematuria dysuria or other urinary problems Denies abdominal pain and no symptoms of bowel obstruction Denies unusual headaches diplopia ataxia or symptoms that suggest SYSTEMS DEVELOPMENT MANAGER metastasis PHYSICAL EXAM: BP 140/70 Pulse 65 Temp 36.2 C (97.2 F) Wt 75.5 kg (166 lb 8 oz) SpO2 96% BMI 26.87 kg/m2 Body massindex is 26.87 kg/m . ECO No lymphadenopathy Lungs are clear to auscultation percussion No JVD S3 or S4 DATA REVIEW: I personally reviewed the patient's data and medical records. PERTINENT LABS: Reviewed PERTINENT IMAGING: Reviewed ASSESSMENT AND Plan Right hydronephrosis. Again patient so I urologist in [place]; I think his name is Dr. Mayorga. He has been doing his cystoscopies and previous local bladder treatments. At any rate; according to the patient when he saw him in June 2022 he recommended night nephrectomy and ureterectomy versus observation. Till this day I do not see a pathology or cytology or documentation of the right pelvis or right ureter malignancy. Ultrasound describes severe hydronephrosis. However his creatinine is still within normal range at 1.2 albeit rising slowly Both he and family members want to see another urologist at least for this problem. I need to see if a cytology or biopsy was done. Also he needs an relief of the hydronephrosis by stenting preferably internally or if not feasible externally. I took the liberty of referring him to Dr. Smith. I will see the patient after his evaluation The patient was able to ask questions and these were answered in detail. Haydee Lemus MD cc: Haydee Hinton MD documented in this encounterUniversity Hospitals Geauga [facility] Center03-16-2023 History of Present illness Narrative* Jade Lund RDMS - 12/10/2022 3:15 PM EDT Radiology Service Progress Note PATIENT NAME: Isaias Slaughter DATE OF SERVICE: December 10, 2022 TIME: 3:34 PM PATIENT IDENTITY VERIFICATION COMPLETED USING TWO (2) IDENTIFIERS: Name and Date of confirmedby patient verbally. FALL SCREENING: Has the patient had 2 falls in the last year or 1 fall with injury or currently using an Ambulatory Assistive Device (Walker, Cane, Wheelchair, Crutches, etc.)? No PATIENT GENDER DATA: Male PATIENT RELEVANT IMPLANT DATA REVIEWED: Not Applicable RADIOLOGY DEPARTMENT: Ultrasound PERIPHERAL IV DATA: Not applicable SIGNED BY: Jade Lund RDMS RVT December 10, 2022 3:34 PM documented in this encounterUniversity Hospitals Geaug[facility] Center03-15-2023 Miscellaneous Notes* Telephone Encounter - Leslie Marte LPN - 12/09/2022 1:42 PM EDT Please resend. Leslie Marte LPN documented in this encounterUniversity Hospitals Geauga [facility] Center03-15-2023 History of Present illness Narrative* Haydee Lemus MD - 12/09/2022 12:12 PM EDT Images from the original note were not included. SERVICE DATE: December 09, 2022 CHIEF COMPLAINT: Isaias Slaughter is a 87 year old male returning today for follow up of his prostatic cancer INTERVAL HISTORY: Very pleasant 87-year-old white gentleman for oncologic surveillance on his metastatic prostatic carcinoma. Apparently there was intrathoracic lymph node and lung involvement. 1 site was biopsied and consistent with metastatic prostatic adenocarcinoma which is extremely unusual rosemary with. Prior to that in 2013 he had stage I left lower lung non-small cell carcinoma that was treated definitively with lobectomy. At that time the right 10 R was positive for metastasis with different phenotyping and demand as adenocarcinoma with neuroendocrine differentiating pattern. This would make more sense than just plain adenocarcinoma which actually always metastasizes to the bone before any other organ. At any rate he has not responded completely to Lupron in addition to Zytiga and prednisone. He also had noninvasive bladder cancer and underwent TURBT with no evidence of recurrence on serialcystoscopies. Apparently there was concern about right ureteral urothelial cancer in June 2022. This was based on right hydronephrosis. According to the patient he saw his urologist who recommended nephrectomy but the patient declined. Patient said that he was not feeling as well today but then he feels better now. When asked specifically he became teary and talked about the loss of his a year ago. Going over the details really no physical complaints were offered Diagnostic Studies: Reviewed CURRENT MEDICATIONS: predniSONE (DELTASONE) 5 mg tablet^Take 1 tablet by mouth once daily. Take with breakfast^Disp: 90 tablet^Rfl: 3 amLODIPine (NORVASC) 5 mg tablet^Take 1 tablet by mouth once daily.^Disp: 90 tablet^Rfl: 3 FLUoxetine (PROZAC) 10 mg capsule^Take 1 capsule by mouth once daily.^Disp: 30 capsule^Rfl: 5 losartan (COZAAR) 100 mg tablet^Take 1 tablet by mouth once daily.^Disp: 90 tablet^Rfl: 3 abiraterone (ZYTIGA) 250 mg tablet^Take 4 tablets by mouth once daily.^Disp: 120 tablet^Rfl: 11 potassium chloride ER (K-DUR, KLOR-CON) 20 mEq tablet^Take 1 tablet by mouth once daily.^Disp: 90 tablet^Rfl: 3 folic acid 1 mg tablet^Take 1 tablet by mouth once daily.^Disp: 100 tablet^Rfl: 3 Calcium Citrate 250 mg calcium tab^Take 1 tablet by mouth once daily.^Disp: ^Rfl: Cholecalciferol, Vitamin D3, (VITAMIN D) 25 mcg (1,000 unit) cap^Take 1 capsule by mouth once daily.^Disp: 100 capsule^Rfl: 2 aspirin (CHILDRENS ASPIRIN) 81 mg chewable tablet^Take 1 tablet by mouth once daily.^Disp: ^Rfl: 0 Ajnogwlvxawtp-Nbtzgmpo-Prhoxw (CENTRUM SILVER) tab^Take 1 tablet by mouth once daily.^Disp: ^Rfl: ALLERGIES/INTOLERANCES: ALLERGIES Allergen Reactions Amoxicillin Diarrhea, GI Upset Patient cannot tolerate this medication Lisinopril Cough Fpjlfjj-Npn-Ghl Red* Other: See Comments Patient states he will not take statins because of what they did to his . ROS: No fever night sweats or weight loss No increased fatigue that prohibits him from daily activities No dyspnea orthopnea paroxysmal nocturnal dyspnea chest pain dizziness or lightheadedness Tolerable hot flashes No shortness of breath pleuritic pain hemoptysis cough or expectoration No abdominal pain hematuria dysuria or any significant urinary changes PHYSICAL EXAM: BP 141/76 Pulse 64 Temp 36.4 C (97.6 F) Wt 74.8 kg (165 lb) SpO2 95% BMI 26.63 kg/m2 Body mass index is 26.63 kg/m . ECO No lymphadenopathy No palpable masses Lungs are clear to auscultation percussion No JVD S3 or S4 No hepatosplenomegaly, abdominal tenderness or rebound No edema DATA REVIEW: I personally reviewed the patient's data and medical records. 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 Excellent response to Lupron as well as Zytiga and prednisone. Apparently his funded Zytiga supply has ended. We will switch him to Xtandi once he finishes what ever Zytiga he has available Patient's creatinine has increased to 1.2. Although still in the normal range but certainly showed consistent increase. This is most likely due to the hydronephrosis. We had a comprehensive conversation explaining this finding. We will schedule him as soon as possible for kidney ultrasound and possible intervention by stent wether externally or internally. We will also revisit the issue of urothelial cancer since I did not see a biopsy or cytology to confirm recurrence. However it could be present but in a different system so I will verify that The patient was able to ask questions and these were answered in detail. Haydee Lemus MD cc: Miguel Angel Hinton MD documented in this encounterUniversity Hospitals Geaug[facility] Center03-15-2023 Nurse Note* Winter Hawkins LPN - 12/09/2022 10:49 AM EDT Pt here for injection of Lupron. Given IM in right buttocks. Pt tolerated well. For all other information regarding today, see today's OV note with Dr Bhumika Lemus. Winter Hawkins LPN documented in this encounterUniversity Hospitals Geaug[facility] Center02-02-2023 Miscellaneous Notes* Telephone Encounter - Zee Toro MD - 10/29/2022 11:34 AM EST OK- understand that pt/son do not want to proceed with nephro-ureterectomy, will follow patient conservatively * Telephone Encounter - Vidya Hein - 10/23/2022 10:15 AM EST Pam from chart command called. She spoke with patient and his son. He does not want to have the surgery done on 10/30/22. States he is to old and doesn't want to go through it. His son Jayesh, was inagreement with patients decision. Vidya Hein documented in this encounterUniversity Hospitals Geauga Medical Center12-21-2022 History of Present illness Narrative* Winter Hawkins LPN - 09/16/2022 10:16 AM EST Pt here for injection of Lupron. Given IM in right buttocks. Pt tolerated well. Winter Hawkins LPN documented in this encounterUniversity Hospitals Geauga Medical Center12-15-2022 Miscellaneous Notes* Telephone Encounter - Miguel Angel Reese MD - 09/10/2022 10:20 AM EST Patient's request for medication is as follows Requested Prescriptions Signed Prescriptions Disp Refills predniSONE (DELTASONE) 5 mg tablet 90 tablet 3 Sig: Take 1 tablet by mouth once daily. Take with breakfast Authorizing Provider: MIGUEL ANGEL REESE Order entered - please phone pharmacy and notify patient. Miguel Angel Reese MD documented in this encounterUniversity Hospitals Geauga Medical Center12-13-2022 Miscellaneous Notes* Telephone Encounter - Zee Toro MD - 09/08/2022 10:14 AM EST S/p tumor fulguration- no follow up Katy- pts shabnam says pre-surg testing for his Fe surgery needs to be rescheduled. Please call him to arrange Zee Toro MD * Telephone Encounter - Vidya Hein - 08/06/2022 10:09 AM EST Does patient still need Office Cysto on the 13 of August? Please advise. Thank you Vidya Hein documented in this encounterUniversity Hospitals Geauga [facility] Center12-06-2022 Instructions* Patient Instructions* Kelly Rios APRN.CNP - 09/01/2022 2:31 PM EST PATIENT PREOPERATIVE INSTRUCTIONS eZe Toro MD has scheduled you for your procedure at this surgery center: [facility]: [phone], [address] [address] Please read below carefully for your personalized instructions. Date of Surgery: 09/08/2022 Time of surgery: 9 AM Arrival Time for Surgery: 7 AM Please be aware that emergency situations arise, which may delay or change your surgical time. If this happens, we will notify you as soon as possible and regret any inconvenience. Dietary Restrictions: - No solid food or liquids after midnight. Medications: Approved medications can be taken the morning of surgery with a sip of water. AVS was given to patient and specific instructions for each medication reviewed. See medication list. Please continue to take blood pressure medications including day of surgery. Approved medications to take the morning of surgery with a sip of water: blood pressure, heart, thyroid, psych, seizure, and pain medications excluding NSAIDS. Use inhalers as prescribed. Please bring inhalers. Please follow up with the provider that manages your diabetes on how to prepare you for surgery. - Any oral diabetic medications should be held day of surgery. - If you are taking insulin please discuss with prescribing physician for pre op instructions. If you are taking the following medications for Type 2 diabetes: Canagliflozin (INVOKANA), dapagliflozin (FARXIGA), and empagliflozin (JARDIANCE) should each be discontinued at least 3 days before scheduled surgery. Ertugliflozin (STEGLATRO) should be discontinued at least four days before scheduled surgery. If you start any new medications after today's visit, please contact the surgeon's office. Blood Thinning Medications: - Stop NSAIDS (Ibuprofen, Advil, Aleve, Motrin, Celebrex, Mobic, etc.) 7 days before surgery, as directed by your surgeon. - If you take any of the following blood thinners, please contact your surgeon and the physician who prescribes it for you in order to get perioperative instructions as soon as possible Blood thinners: Aspirin,Coumadin, Plavix, Eliquis, Pradaxa, Xarelto, Lovenox, Brilinta, Effient, Savaysa, Arixtra etc. - Stop Vitamin E, fish oil, Ginko, Winona's Wort, flax seed oil, multivitamins, CBD oil, marijuana and other over the counter herbals and dietary supplements 7 days before surgery. - This would not apply to cancer patients who are prescribed Marinol or any other prescription formof marijuana or CBD. Pain Medications: - You may take Tylenol (Acetaminophen) or any of your current prescribed pain medications that do not contain aspirin or NSAIDS as needed. If you take any medications for erectile dysfunction-Cialis (Tadalafil), Levitra, Staxyn (Vardenafil) Viagra (Sildenenafil please do not take these for 48 hours before surgery. If you start any new medications after today's visit, please contact the surgeon's office. Important Reminders: - If you have a stimulator, implant or pump that requires a remote please bring the remote with youday of surgery - If you use CPAP/BIPAP, bring the machine with you to the surgery center. - If you are prescribed inhalers for breathing, continue using them AND bring them to the surgery center. - Candy, mints, gum and tobacco products are NOT permitted the morning of surgery. - Hearing aids, dentures and glasses may be worn the morning of surgery. - NO jewelry, body piercings, makeup, hairpins or contacts are to be worn the day of surgery. - NO keys, wallet, watches, or purses - NO lotion, creams, powders or deodorants on the skin the day of surgery - Wear loose, comfortable clothing that will accommodate bandages. - Your length of stay will be determined by your surgeon - You will need to have someone else (Family or friend) drive you home once discharged from the hospital. You are not allowed to drive yourself home after surgery. - YOU MUST HAVE A RESPONSIBLE TIE SAWYER TAKE YOU HOME. A BAG CHECKER, CAB OR UBER TIE SAWYER CANNOT BE MADEA RESPONSIBLE TIE SAWYER. - We recommend that a responsible person stays with you overnight to take care of you. - You cannot stay in a hotel alone after outpatient surgery. You will not be permitted to have yoursurgery, if you do not have someone to take care of you. --IF you are having a TOTAL KNEE or HIP REPLACEMENT please bring your walker into the building withyou. It is recommended patients have a 72 hour period between getting a vaccine and date of surgery. If you develop symptoms such as a fever, cold, or flu, or have other changes to your health within TWO DAYS of scheduled surgery or the morning of surgery, please contact the surgery center above. All surgical patients that are going to be admitted will have confirmed negative COVID-19 testing prior to their planned procedure. Once tested we ask patients to continue to social distance leading up to their procedure. If you are not going to be admitted, COVID test is no longer required unless the procedure is a bronchoscopy or oral, nasal, pharyngeal, and laryngeal procedure. Please discuss with surgeon if you are not sure if covid testing is required. Update to visitor policy. Current policy will allow for 2 visitors. We are not allowing children inour waiting room. No food or drink is allowed. Everyone must keep their masks on. We are not allowing a visitor in our PACU area unless a minor, sign language interpreter or a special circumstance. Each patient isallowed two visitor on the day of surgery/procedure. Visitors will be asked to wear a mask that cove rs their nose and mouth at all times. The visitors will be allowed to stay with the patient prior to going to surgery/procedure. No visitors are allowed in our recovery room. Personal Belongings: - Leave ALL valuables and money at home or with family members. - You will need a form of ID and insurance card to check in the morning of surgery. - You will have to wear a hospital gown during your stay but if you wish to bring undergarments forafter surgery you may. Our anesthesia department recommends reading Prepare for Surgery, Heal Faster: A Guide of Mond-BodyTechniques by Jessy Combs prior to surgery. Kelly Rios APRN.CNP documented in this encounterUniversity Hospitals [facility]12-06-2022 History and physical note * Kelly Rios APRN.CNP - 09/01/2022 1:40 PM EST HISTORY AND PHYSICAL EXAMINATION SERVICE DATE: 08/31/2022 SERVICE TIME: 2:27 PM PRIMARY CARE PHYSICIAN: Kya Hinton MD REASON FOR VISIT: Isaias Slaughter is a 87 year old male who is scheduled for Procedure(s): CYSTOSCOPY, RETROPYELOGRAM (N/A) EXCISION BLADDER TUMOR SMALL (0.5 UP TO 2.0 CM) (N/A) at the request of Dr. Zee Toro for routine H&P. My final recommendation will be communicated back to the requesting physician by way of shared medical record or letter. 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 Diverticulosis of Colon (Without Mention of Hemorrhage) Benign Neoplasm of Colon Malignant Neoplasm of Bladder (Hcc) Radiation Cystitis Presence of Bare Metal Stent in Right Coronary Artery Hld (Hyperlipidemia) Cad (Coronary Artery Disease) Mediastinoscopy, right thoracotomy, right lower lobectomy 02/21/14 Carcinoma of Lung (Hcc) History of Basal Cell Carcinoma Ak (Actinic Keratosis) 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) Left Inguinal Hernia Prediabetes Mediastinal Mass Malignant 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 He has a history of malignant neoplasm of urinary bladder which has been superficial in nature and removed through TURB. Follows with hematology oncology for stage IV metastatic prostate cancer. He receives Lupron IM every 3 months and takes daily Zytiga and prednisone. 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 He is scheduled for right nephrectomy 10/30/2022. Current urinary symptoms include frequency and nocturia. Denies fever, chills, dysuria or flank pain. The procedure was recommended and after discussion with his physician he is agreeable. REVIEW OF SYSTEMS: General: No weight loss, malaise or fevers. Neurological: Negative for: dementia, headaches, impaired sensorium, multiple sclerosis, Parkinson's disease, seizures, TIA and strokes. Respiratory: No history of current cough or dyspnea, or pneumonia in the past 6 weeks. No history of respiratory/pulmonary symptoms or problems. Negative for: tobacco use and obstructive sleep apnea. Cardiovascular: Positive for: CAD, hyperlipidemia, hypertension and PTCA Patient's last office visit with emr specialist, Dr. Isaias Prather, was August 2022. The followingtests and/or procedures were performed: cardiac stress test and echocardiogram. Negative for: AICD/PPM, anticoagulation therapy, arrhythmia, atrial fibrillation, chest pain, CHF, DVT/PE, open heart surgery and valve surgery. GI: Positive for: diverticulitis Negative for: abdominal pain, dysphagia, nausea and vomiting. : See HPI. Endocrine: Positive for: steroid for chronic problem. Negative for: diabetes mellitus and hypothyroidism. Hematology: Positive for: bruises/bleeds easily and chronic anti-coagulation/platelet meds. Patient is on anti-coagulation/platelet medication(s): Aspirin. Negative for: anemia. Oncology: No history of CA metastasis, chemo within 30 days, or radiotherapy within 90 days. No history of oncological symptoms or problems. Psych: No history of psychiatric symptoms or problems. Musculoskeletal: Negative for joint pain or swelling, back pain or muscle pain. Skin: Negative for lesions, rash and itching. 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 Malignant 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 (HCC) Malignant neoplasm of urinary bladder (HCC) Other and unspecified hyperlipidemia Hyperlipidemia PERS HX SKIN MALIGNANCY NEC 11/08/2006 PAST SURGICAL HISTORY Procedure Laterality Date ANES TRANSURETHRAL RESECTION OF BLADDER TUMOR 2012 ANES TRANSURETHRAL RESECTION OF BLADDER TUMOR 2010 APPENDECTOMY 194 BLADDER BIOSPY FULGUR 2018 CARDIAC 2013 stent to RCA CATARACT EXTRACTION W/ INTRAOCULAR LENS IMPLANT HX Right COLON SURGERY HX 2019 COLONOSCOPY FLX DX W/COLLJ SPEC WHEN PFRMD 08/25/2012 Colonoscopy report 5 years COLSC FLX W/RMVL OF TUMOR POLYP LESION SNARE TQ 12/30/2006 CYSTOSCOPY,+URETEROSCOPY Right 03/2021 CYSTOURETHROSCOPY,FULGUR .5-2CM LESN 01/2021 CYSTOURETHROSCOPY,FULGUR .5-2CM LESN 2011 EGD REMOVAL TUMOR POLYP/OTHER LESION SNARE TECH 02/2022 done at [facility] PAST SURGICAL HISTORY OF 2001 TURB BLADDER CANCER RMVL LUNG OTHER THAN PNEUMONECTOMY 1 LOBE LOBECT 02/21/2014 Mediastinoscopy, right posterolateral thoracotomy, right lower lobectomy, lymphadenectomy, rib blocks RPR 1ST INGUN HRNA AGE 5 YRS/> REDUCIBLE Left 03/19/2017 SIGMOIDOSCOPY FLX DX W/COLLJ SPEC BR/WA IF PFRMD Sigmoidoscopy TONSILLECTOMY PRIMARY/SECONDARY <AGE 12 Tonsillectomy FAMILY HISTORY Problem Relation Age of Onset Heart Mother Heart Father Ischemic Heart Disease Father Hypertension Brother Lipids Brother None No Family History No lung disease. Social History Tobacco Use Smoking status: Former Packs/day: 1.00 Years: 12.00 Pack years: 12.00 Types: Cigarettes Start date: 1952 Quit date: 09/27/1964 Years since quittin.9 Smokeless tobacco: Never Tobacco comments: ETS: Father smoked in childhood home, then quit. Spouse non-smoker. Vaping Use Vaping Use: Never used Substance Use Topics Alcohol use: No Drug use: No Prior to Admission medications as of 09/01/22 1408 Medication Sig Last Dose Taking amLODIPine (NORVASC) 5 mg tablet Take 1 tablet by mouth once daily. Taking Yes losartan (COZAAR) 100 mg tablet Take 1 tablet by mouth once daily. Taking Yes abiraterone (ZYTIGA) 250 mg tablet Take 4 tablets by mouth once daily. Taking Yes predniSONE (DELTASONE) 5 mg tablet Take 1 tablet by mouth once daily. Take with breakfast Taking Yes potassium chloride ER (K-DUR, KLOR-CON) 20 mEq tablet Take 1 tablet by mouth once daily. Taking Yes folic acid 1 mg tablet Take 1 tablet by mouth once daily. Taking Yes Calcium Citrate 250 mg calcium tab Take 1 tablet by mouth once daily. Taking Yes Cholecalciferol, Vitamin D3, (VITAMIN D) 25 mcg (1,000 unit) cap Take 1 capsule by mouth once daily. Taking Yes aspirin (CHILDRENS ASPIRIN) 81 mg chewable tablet Take 1 tablet by mouth once daily. Taking Yes Sekiwkphkzxvp-Zzcilzzx-Apvekz (CENTRUM SILVER) tab Take 1 tablet by mouth once daily. Taking Yes FLUoxetine (PROZAC) 10 mg capsule Take 1 capsule by mouth once daily. No medication comments found. ALLERGIES Allergen Reactions Amoxicillin Diarrhea, GI Upset Patient cannot tolerate this medication Lisinopril Cough Jhvupna-Dgd-Cvs Red* Other: See Comments Patient states he will not take statins because of what they did to his . Objective PHYSICAL EXAM: General: alert and oriented and healthy appearance. Pertinent negatives noted - not distressed. Skin: normal color, no rash or lesions. HEENT: No additional findings for patient's neck. Cardiovascular: Pulse characterized as regular.Positive for murmur. Pertinent negatives noted - no rub and no gallop. Findings of a 2/6 grade systolic heart murmur, low pitched with a soft quality, and a location of: ULSB. Respiratory: normal breath sounds, no wheezes or crackles. Abdomen: bowel sounds present and soft. Pertinent negatives noted - not tender. Extremities: no deformity, no edema or tenderness, no joint swelling or clubbing. Neurological: normal cognition and motor skills. PAIN ASSESSMENT: VITALS: BP 150/87 Pulse 72 Temp 98.6 Resp 20 Ht 5' 6 (1.68m) Wt 164 lb (74.4kg) SpO2 96% BMI26.48 kg/(m^2). Diagnostic tests reviewed for today's visit: Lab Value Units Date High Low HB 13.8 g/dL 07/10/2022 17.0 13.0 HCT 42.2 % 07/10/2022 51.0 39.0 WBC 6.66 k/uL 07/10/2022 11.00 3.70 PLT 350 k/uL 07/10/2022 400 150 NA 140 mmol/L 07/10/2022 144 136 K 3.8 mmol/L 07/10/2022 5.1 3.7 GLUC 96 mg/dL 07/10/2022 99 74 BUN 17 mg/dL 07/10/2022 24 9 CREAT 1.12 mg/dL 07/10/2022 1.22 0.73 PTSEC No results within date range. INR No results within date range. APTT No results within date range. ALT 7 U/L 07/10/2022 54 10 AST 12 U/L 07/10/2022 40 14 TBILI 0.5 mg/dL 07/10/2022 1.3 0.2 TSH No results within date range. Lab Value Units Date High Low HCGQT No results within date range. UHCG No results within date range. HCG, BODY* No results within date range. Lab Value Units Date High Low ABORHD No results within date range. ABSCREEN No results within date range. Hemoglobin A1C (%) Date Value 10/14/2021 5.6 09/16/2018 5.8 08/09/2017 5.7 Recent Results (from the past 8760 hour(s)) ECG COMPLETE Collection Time: 03/17/22 9:56 AM Result Value Ventricular Rate 76 Atrial Rate 76 P-R Interval 190 QRS Duration 84 QT Interval 454 QTC Calculation (Bazett) 510 Calculated P Columbia 30 Calculated R Columbia -20 Calculated T Columbia 65 Impression SINUS RHYTHM WITH OCCASIONAL PREMATURE VENTRICULAR COMPLEXES LOW VOLTAGE QRS INFERIOR INFARCT , AGE UNDETERMINED PROLONGED QT ABNORMAL ECG NO PREVIOUS ECGS AVAILABLE Confirmed by MD RODRIGUEZ FERNANDO ([id number]) on 03/17/2022 3:56:43 PM No results found for this or any previous visit (from the past 03131 hour(s)). Implantable Devices: cardiac stent Patient has the following medical conditions which may affect clayton-operative course Coronary Artery Disease s/p BMS mid RCA 09/12/2013. Stable. Treated. Medical therapy. Per cardiology note from 07/29/2022 preop exam, echocardiogram and nuclear stress test ordered. Both were done 08/31/2022 and are visible in [facility] under Dr. Prather's 08/31/2022 note. Both tests are normal. Hypertension - controlled with medication. Advised to continue same medication and take day of surgery. Hyperlipidemia - unable to take statins due to allergy. 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 taking aspirin. Instructed to call surgeon and prescribing provider for preop instructions. Cardiac Testing Echocardiogram 08/31/2022 ECHO/Echo Complete Interpretation Summary The study was technically difficult. Left ventricular systolic function is normal. The estimated ejection fraction is 70 %. The left atrium is mildly enlarged. Mild (1+) eccentric mitral valve insufficiency. Moderate focal aortic valve calcification. No evidence for diastolic dysfunction. Pharmacologic nuclear stress test 08/31/2022 Impression: 1. Rest and stress SPECT Cardiolite nuclear imaging demonstrate myocardial perfusion changes at rest which appear to improve/normalize following stress appearing compatible with shifting soft tissue attenuation/artifact with no myocardial perfusion changes considered diagnostic for associated stress-induced myocardial ischemia. 2. The gated Cardiolite study reports an LVEF of 71%. Assessment/Plan Malignant neoplasm of urinary bladder, unspecified site (HCC) [C67.9] PLAN Planned Procedure: Procedure(s): CYSTOSCOPY, RETROPYELOGRAM (N/A) EXCISION BLADDER TUMOR SMALL (0.5 UP TO 2.0 CM) (N/A) The Following Tests/Procedures Have Been Initiated: No orders of the defined types were placed in this encounter. Ordered per surgeon in [facility]: Urine culture Note: the other labs ordered by Dr. Toro in [facility] are for patient's 2nd surgery that is scheduled for early 2022 Assessment No problem-specific Assessment & Plan notes found for this encounter. Nevarez Activity Status Index: METS: Climb a flight of stairs or walk up a hill (5.50 METs) DASI Score: 5.5 Patient denies any chest pain or undue shortness of breath with the above physical activity. ARISCAT Score: Age: >80 Preoperative SpO2: >=96% Respiratory infection in the last month: No Preoperative anemia: No Surgical incision: peripheral Duration of surgery: <2 hrs Emergency procedure: No ARISCAT Score: 16 ANESTHESIA FINDINGS: Intubation History: No history of difficult intubation. No abnormal airway history Significant Anesthesia Considerations: none Airway History: No history of difficult airway No abnormal airway history I - PHYSICAL EVALUATION AIRWAY Patient intubated: No. Back present: no DENTAL Dental findings: missing tooth/teeth. Dentures, upper: complete. Additional comments: Missing teeth lower. II - ANESTHESIA PLAN Anesthetic Plan: general Beta Ahsan Monitoring Plan Post Procedure Analgesic Plan Prepared for Surgery: . No clearances requested by surgeon. CONSULTS: Planned Anesthetic: general The Following Tests/Procedures Have Been Initiated: No orders of the defined types were placed in this encounter. Instructions Given to Patient: Instructions located in the after visit summary. Patient given verbal and written preop instructions and voices comprehension and compliance. SIGNATURE: Kelly Rios APRN.ROLF PATIENT NAME: Isaias Slaughter DATE: August 31, 2022 TIME: 9:49 PM PAGER/CONTACT #: documented in this encounterUniversity Hospitals Ge[facility] Center11-14-2022 Miscellaneous Notes* Telephone Encounter - Amy Tao LPN - 08/10/2022 12:55 PM EST Patient phones requesting refills as follows: Requested Prescriptions Pending Prescriptions Disp Refills amLODIPine (NORVASC) 5 mg tablet 90 tablet 3 Sig: Take 1 tablet by mouth once daily. KANE 04/22/22 NOV 11/04/22 Please review and advise. Amy Tao LPN documented in this encounterUniversity Hospitals Geaug[facility] Center11-13-2022 Miscellaneous Notes* Telephone Encounter - Isaias Mahoney DO - 08/09/2022 4:20 PM EST He should have refills on this. Isaias Mahoney DO documented in this encounterUniversity Hospitals Geauga [facility] Center10-24-2022 Miscellaneous Notes* Telephone Encounter - Zee Toro MD - 07/20/2022 5:15 PM EDT I spoke with pt today, most recent CT a/p/chest negative for mets. Pt recently met with his oncologist Dr Reese and he now wants to proceed again with right Nephroureterectomy wo will rescheudle - schedule robotic laparoscopic right Nephroureterectomy - schedule cysto, TURBT (maybe 2 weeks prior to above surgery) Zee Toro MD documented in this encounterUniversity Hospitals Geaug[facility] Center10-21-2022 Miscellaneous Notes* Telephone Encounter - Mayela Hernández - 07/17/2022 9:10 AM EDT Spoke with patients son Jayesh, patient had a meeting with his oncologist yesterday and they went over the imagining, was told that the left kidney is basically doing all the work now. Due to this the patient has now decided that he wants to have the kidney taken out. (He has appt for cysto on 08/13/2022) Son would like you to review the imagining and notes from oncology and see if this is in fact the best option. Mayela Hernández documented in this encounterUniversity Hospitals Geauga Medical Center10-20-2022 History of Present illness Narrative* Miguel Angel Reese MD - 07/16/2022 9:24 AM EDT PATIENT NAME: Isaias Slaughter. CLINIC NO: [id number]. ATTENDING PHYSICIAN: Miguel Angel Reese MD. 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 - history of superficial bladder cancer- status post TURB & urothelial cancer of the right ureter. 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 Oncological history: Lung cancer; He underwent a right lower lobectomy along with mediastinal lymph node dissection. Surgery was performed on 02/21/14. 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 The tumor was 5 x 4.2 x 1.8 cm in size. There was no evidence of any pleural involvement. Noevidence of any lymphovascular invasion identified. There was no evidence of any perineural invasion. The patient had no evidence of any mediastinal lymph node metastasis by this tumor. The right 10R was positive for metastasis the the phenotyping was different from the lung cancer. The lymph node showed a staining pattern consistent with adenocarcinoma of prostatic primary. This was positive for PSA, positive for prostate-specific membrane antigen as well as the prostatic acid phosphatase. The adenocarcinoma was diffusely positive for synaptophysin and focally positive for chromogranin highlighting a neuroendocrine differentiating pattern. Prostate cancer; history of prostate cancer ( Janis score 6- 7 ) diagnosed about 10 years ago. This was organ confined and was treated with external beam radiation. The patient had a PSA level checked last year which was reported at 0.28. Started LHRH agonist for metastatic prostate cancer last year with isolated bone metastasis. Complained of severe muscle aches and pain, fatigue and weight loss after treatment started. Bladder cancer; history of multiple superficial bladder cancers. These have been removed through a TURB. Cystoscopy recently was positive for low-grade papillary carcinoma. current treatment: Lupron/ Abiraterone/ prednisone Interim history: Patient is doing well. No bone pain, cough or shortness of breath. Weight and appetite remain stable. He has no hematuria. No pain, difficulty with urination or pressure in his pelvis. . All medications & allergies updated and reviewed by me. . REVIEW OF SYSTEMS: CONSTITUTIONAL: No fevers, chills, nightsweats, unintended weight loss HEENT: Denies frequent or severe heaches, nasal congestion/sinus symptoms, problematic allergy problems. EYES: No diplopia or blurry vision. CARDIOVASCULAR: No chest pain, dyspnea, palpitations, orthopnea, PND, ankle edema. PULM: No dyspnea, unexplained cough. GI: No dysphagia/odynophagia, problematic reflux, constipation, diarrhea, changes in stool habits, hematochezia, melena. : No new urinary complaints, including dysuria, gross hematuria or pyuria. NEURO: No new balance problems, peripheral weakness/paresthesias or numbness of concern. MUSC-SKEL: No new joint pain, swelling, or erythema. PSY: No concerns regarding depression, anxiety or panic. INTEGUMENTARY: No new skin changes (rash, new or changing mole, new growth) no jaundice PHYSICAL EXAMINATION: 87 year-old gentleman in no acute distress; depressed mood Performance status 80% BP 155/81 Pulse 75 Temp 98.3 Wt 168 lb (76.2kg) HEENT: Head is normocephalic, atraumatic. Sclerae anicteric, conjunctivae pink. PEERL. EOMs are intact. Oropharynx is benign. LYMPHATICS: There is no palpable adenopathy in the neck, supraclavicular region, axillae, or groin. LUNGS: Lungs are clear to percussion and auscultation. Right thoracotomy scar-healed. BREASTS: Without skin dimpling, nipple discharge or masses. + Gynecomastia HEART: Heart is normal without murmurs, gallops, or rubs. ABDOMEN: Soft and nontender without organomegaly. No masses can be palpated. EXTREMITIES: Are without edema. NEUROLOGIC: Exam is physiologic LABS: Component Latest Ref Rng & Units 07/10/2022 WBC 3.70 - 11.00 k/uL 6.66 RBC 4.20 - 6.00 m/uL 4.42 Hemoglobin 13.0 - 17.0 g/dL 13.8 Hematocrit 39.0 - 51.0 % 42.2 MCV 80.0 - 100.0 fL 95.5 MCH 26.0 - 34.0 pg 31.2 MCHC 30.5 - 36.0 g/dL 32.7 RDW-CV 11.5 - 15.0 % 13.9 Platelet Count 150 - 400 k/uL 350 MPV 9.0 - 12.7 fL 11.8 Neut% % 75.6 Abs Neut (ANC) 1.45 - 7.50 k/uL 5.05 Lymph% % 12.2 Abs Lymph 1.00 - 4.00 k/uL 0.81 (L) [place]on% % 9.2 Abs [place] <0.87 k/uL 0.61 Eosin% % 2.0 Abs Eosin <0.46 k/uL 0.13 Baso% % 0.5 Abs Baso <0.11 k/uL 0.03 Immature Gran % % 0.5 IMMATURE GRANS (ABS) <0.10 k/uL 0.03 NRBC /100 WBC 0.0 Absolute nRBC <0.01 k/uL <0.01 DTYPE Auto Component Latest Ref Rng & Units 07/10/2022 Protein, Total 6.3 - 8.0 g/dL 6.2 (L) Albumin 3.9 - 4.9 g/dL 4.5 Calcium 8.5 - 10.2 mg/dL 9.6 Bilirubin, Total 0.2 - 1.3 mg/dL 0.5 Alkaline Phosphatase 38 - 113 U/L 82 AST 14 - 40 U/L 12 (L) ALT 10 - 54 U/L 7 (L) Glucose 74 - 99 mg/dL 96 BUN 9 - 24 mg/dL 17 Creatinine 0.73 - 1.22 mg/dL 1.12 Sodium 136 - 144 mmol/L 140 Potassium 3.7 - 5.1 mmol/L 3.8 Chloride 97 - 105 mmol/L 104 CO2 22 - 30 mmol/L 27 Anion Gap 9 - 18 mmol/L 9 eGFR >=60 mL/min/1.73m 64 PSA <2.60 ng/mL <0.02 IMAGING: CT Chest: IMPRESSION: No developing suspicious mass or adenopathy in the chest CT abdomen pelvis: COMPARISON: 01/05/2022 IMPRESSION: Mild increase in the degree of significant right hydroureteronephrosis. Bilateral renal cysts and additional subcentimeter low-density foci are too small to characterize and likely represent additional cysts. Stable solid splenic mass. 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 (Lung & intrathoracic lymph node metastases) -Tolerating androgen ablation therapy. -In complete remission with combined androgen ablation treatment Plan: - Continue Lupron 22.5 mg IM every 3 months x 2 - Continue Zytiga 1000mg once daily along with prednisone 5mg once daily for metastatic prostate cancer. - Repeat CBC, CMP, PSA and OV in November 2022 2. History of non-small cell lung cancer - in complete remission -JEFFRY Plan: -Continue to follow chest x-ray as indicated 3. 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 -Asymptomatic; worsening right hydronephrosis concerning for recurrent urothelial cancer of the ureter Plan: -Follow-up with urology regarding surgical option for his his right ureter renal pelvis cancer I spent 30 minutes in the visit, with more than 50% of the total [id number] time of the visit in counseling / coordination of care. Portions of this documentation were copied and pasted from previous office visit notes in order to provide a cohesive continuity of the history. The note has been reviewed and edited and updated as necessary. Miguel Angel Reese MD cc: Dr. Kya Toro documented in this encounterUniversity Hospitals Geauga Medical Center10-14-2022 History of Present illness Narrative* Gaby Hector Max, RT(R) - 07/10/2022 10:40 AM EDT Radiology Service Progress Note DATE OF SERVICE: July 10, 2022 TIME: 3:30 PM PATIENT IDENTITY VERIFICATION COMPLETED USING TWO (2) STANDARD IDENTIFIERS: Name and Date of confirmed by patient verbally. FALL SCREENING: Has the patient had 2 falls in the last year or 1 fall with injury or currently using an Ambulatory Assistive Device (Walker, Cane, Wheelchair, Crutches, etc.)? No PATIENT GENDER DATA: Male PATIENT RELEVANT IMPLANT DATA REVIEWED: Yes ALLERGIES: Reviewed and unchanged CONTRAST ALLERGY: NO. EXAM: CT -CONTRAST INDUCED NEPHROPATHY RISK FACTORS: Patient age > 60 years CREATININE: Creatinine Date Value Ref Range Status 07/10/2022 1.12 0.73 - 1.22 mg/dL Final 06/19/2022 1.15 0.73 - 1.22 mg/dL Final 03/27/2022 1.14 0.73 - 1.22 mg/dL Final Estimated Glomerular Filtration Rate Date Value Ref Range Status 07/10/2022 64 >=60 mL/min/1.73m Final Comment: Estimated Glomerular Filtration Rate (eGFR) is calculated using the 2020 CKD-EPI creatinine equation. This equation utilizes serum creatinine, sex, and age as parameters. The creatinine assay has traceable calibration to isotope dilution- mass spectrometry. Refer to KDIGO guidelines for clinical interpretation. In patients with unstable renal function, e.g. those with acute kidney injury, the eGFRmay not accurately reflect actual GFR. eGFR- Date Value Ref Range Status 10/14/2021 >60 Final 10/14/2021 >60 Final P.O.C.T. RESULTS: POC done: Yes, See Lab Tab July 10, 2022 TREATMENT: N/A PERIPHERAL IV DATA: Ambulatory: A peripheral IV was started in the Left antecubital site with a Angio cath: 22 gauge. RADIOLOGY DEPARTMENT: CT; Exam(s) Completed: Chest Abdomen Pelvis SIGNATURE: RT Katelyn(R) PATIENT NAME: Isaias Slaughter DATE: July 10, 2022 TIME: 3:30 PM documented in this encounterUniversity Hospitals Geaug[facility] Center10-10-2022 Miscellaneous Notes* Telephone Encounter - Ana Kerns LPN - 07/06/2022 9:24 AM EDT Duplicate med request for losartan. Ana Kerns LPN documented in this encounterUniversity Hospitals Geauga Medical Center10-10-2022 Miscellaneous Notes* Telephone Encounter - Ana Kerns LPN - 07/06/2022 9:23 AM EDT Patient has been identified by name and date of : Yes Patient phones for refill(s): Requested Prescriptions Pending Prescriptions Disp Refills losartan (COZAAR) 100 mg tablet 90 tablet 0 Sig: Take 1 tablet by mouth once daily. Date of last office visit in primary care: 04/29/22 Last 2 Encounter Wt Readings: Date: Wt: 06/24/2022 76.7 kg (169 lb) 04/29/2022 75.8 kg (167 lb) Previous labs/tests for medication: Blood Pressure: BUN (mg/dL) Date Value 06/19/2022 22 10/14/2021 15 Sodium (mmol/L) Date Value 06/19/2022 136 10/14/2021 137 Last 1 Encounter BP Readings: Date: BP: 06/24/2022 150/67 Please advise. Thank you. Ana Kerns LPN documented in this encounterUniversity Hospitals Geauga Medical Center09-22-2022 Miscellaneous Notes* Telephone Encounter - Danielle Burroughs LPN - 06/18/2022 7:52 AM EDT Pt. Has upcoming appt. With Shilpa 06/24/22 Patient has been identified by name and date of : Yes Requested Prescriptions Pending Prescriptions Disp Refills abiraterone (ZYTIGA) 250 mg tablet 120 tablet 11 Sig: Take 4 tablets by mouth once daily. RX INSTRUCTIONS: Patient aware RX will be sent to pharmacy. No need to notify patient. Danielle Burroughs LPN documented in this encounterUniversity Hospitals Geauga Medical Center08-29-2022 Miscellaneous Notes* Telephone Encounter - Haven Gimenez - 05/25/2022 10:27 AM EDT Patient electronically sent a request for the following prescription(s) Requested Prescriptions Pending Prescriptions Disp Refills potassium chloride ER (K-DUR, KLOR-CON) 20 mEq tablet 90 tablet 3 Sig: Take 1 tablet by mouth once daily. Patient aware RX will be sent to pharmacy. No need to notify patient. Last Office Visit: 04/29/2022 with PCP Next Office Visit: 08/05/2022 with PCP Please review. Haven Gimenez documented in this encounterUniversity Hospitals Geauga Medical Center07-27-2022 Instructions* Patient Instructions* Emily Rich APRN.ROLF - 04/22/2022 1:28 PM EDT Depression/Anxiety This medicine will take 4-6 weeks to take full effect. If there is no improvement after 2-3 weeks, call me so that we can gradually increase the dose. Side effects usually subside within 2 weeks, if they are still bothersome after this time please call me. Do not abrubtly stop this medicine. Many symptoms, which typically occurs within days of abruptly stopping this medication, may include dizziness, nausea, fatigue, muscle aches, chills, anxiety, and irritability. Although these symptoms are not dangerous and usually dissipate over one to two weeks, they can be quite distressing and uncomfortable. Avoid xykx-weu-yocqkfh [facility] [place] Wart, Ephedra, Meridia, and others while on this medication. If youhave any thoughts of suicide please call me or go to the Emergency Dept immediately. documented in this encounterUniversity Hospitals Geauga Medical Center07-27-2022 History of Present illness Narrative* Emily Rich APRN.CNP - 04/22/2022 1:14 PM EDT Chief Complaint Patient presents with: discuss antidepression HPI Isaias Slaughter is a 86 year old male who presents here today for above. Patient is requesting something for anxiety. His unexpectedly in November of this year and ever since then he has been feeling extremely anxious. As long as he stays busy or is around other people he is in good spirits but whenever he is by himself he feels depressed and anxious. Associated symptoms include excessive worrying, difficulty relaxing, restless, nervousness, depressed mood, fatigue, anhedonia. Panic attacks: No Sleep: is described as normal as long as he takes Melatonin Alcohol use: does not drink any alcohol Drug use: No Appetite: poor but he forces himself to eat Suicidal Thoughts: Thoughts of suicide, sometimes I want to just shoot myself but I would never doit, I'm too afraid. Firearms: YES Support: Comes from multiple sources including family. Son lives very close by Counseling: No Personal mental health hx: None. Medication history: None Family mental health hx: None CP PHQ9 04/22/2022 Little interest or pleasure 1 - Several days Feeling down, depressed, hopeless 3 - Nearly every day Trouble falling or staying asleep, sleeping too much 1 - Several days Feeling tired, having little energy 1 - Several days Poor appetite or overeating 0 - Not at all Feeling bad about yourself, failure or you have let yourself/family down 0 - Not at all Trouble concentrating on things 1 - Several days Moving or speaking so slowly, or fidgety or restless 0 - Not at all Thoughts that you would be better off , or of hurting yourself in some way 1 - Several days How difficult have these problems made things Not difficult at all Interpretation of Total Score 5-9 Mild depression SHAKIR-7 ANXIETY SCALE 04/22/2022 FEELING NERVOUS,ANXIOUS,OR ON EDGE 3 Nearly every day NOT BEING ABLE TO STOP OR CONTROL WORRYING 3 Nearly every day WORRYING TOO MUCH ABOUT DIFFERENT THINGS 3 Nearly every day TROUBLE RELAXING 2 Over half the days BEING SO RESTLESS THAT IT'S HARD TO SIT STILL 3 Nearly every day BEING EASILY ANNOYED OR IRRITABLE 0 Not at all sure FEELING AFRAID IF SOMETHING AWFUL MIGHT HAPPEN 0 Not at all sure GAD7 SCORE 14 IF YOU CHECKED OFF ANY PROBLEMS Somewhat difficult REVIEW OF SYSTEMS See HPI PAST MEDICAL HISTORY Diagnosis Date Benign neoplasm of colon Bladder mass Coronary artery disease 09/13/13 4.0 Integrity BMS mid-RCA, stent Diverticulosis of colon (without mention of hemorrhage) 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 History of basal cell carcinoma HLD (hyperlipidemia) HYPERTENSION NOS 08/03/2006 MALIGN NEOPL PROSTATE 03/05/2006 Malignant neoplasm of bladder, part unspecified 09/27/2001 bladder cancer 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 Malignant 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 (HCC) Other and unspecified hyperlipidemia Hyperlipidemia PERS HX SKIN MALIGNANCY NEC 11/08/2006 PAST SURGICAL HISTORY Procedure Laterality Date ANES TRANSURETHRAL RESECTION OF BLADDER TUMOR 2012 ANES TRANSURETHRAL RESECTION OF BLADDER TUMOR 2010 APPENDECTOMY 194 BLADDER BIOSPY FULGUR 2018 CARDIAC 2013 stent to RCA CATARACT EXTRACTION W/ INTRAOCULAR LENS IMPLANT HX Right COLON SURGERY HX 2019 COLONOSCOPY FLX DX W/COLLJ SPEC WHEN PFRMD 08/25/2012 Colonoscopy report 5 years COLSC FLX W/RMVL OF TUMOR POLYP LESION SNARE TQ 12/30/2006 CYSTOSCOPY,+URETEROSCOPY Right 03/2021 CYSTOURETHROSCOPY,FULGUR .5-2CM LESN 01/2021 CYSTOURETHROSCOPY,FULGUR .5-2CM LESN 2011 PAST SURGICAL HISTORY OF 2001 TURB BLADDER CANCER RMVL LUNG OTHER THAN PNEUMONECTOMY 1 LOBE LOBECT 02/21/2014 Mediastinoscopy, right posterolateral thoracotomy, right lower lobectomy, lymphadenectomy, rib blocks RPR 1ST INGUN HRNA AGE 5 YRS/> REDUCIBLE Left 03/19/2017 SIGMOIDOSCOPY FLX DX W/COLLJ SPEC BR/WA IF PFRMD Sigmoidoscopy TONSILLECTOMY PRIMARY/SECONDARY <AGE 12 Tonsillectomy ALLERGIES Amoxicillin, Lisinopril, and Cskdlky-Dyv-Hvd Reductase Inhibitors MEDICATIONS losartan (COZAAR) 100 mg tablet Take 1 tablet by mouth once daily. Calcium Citrate 250 mg calcium tab Take 1 tablet by mouth once daily. metFORMIN (GLUCOPHAGE) 500 mg tablet Take 1 tablet by mouth daily with lunch. amLODIPine (NORVASC) 5 mg tablet Take 1 tablet by mouth once daily. abiraterone (ZYTIGA) 250 mg tablet Take 4 tablets by mouth once daily. predniSONE (DELTASONE) 5 mg tablet Take 1 tablet by mouth once daily. Take with breakfast potassium chloride ER (K-DUR, KLOR-CON) 20 mEq tablet Take 1 tablet by mouth once daily. folic acid 1 mg tablet Take 1 tablet by mouth once daily. Cholecalciferol, Vitamin D3, (VITAMIN D) 25 mcg (1,000 unit) cap Take 1 capsule by mouth once daily. aspirin (CHILDRENS ASPIRIN) 81 mg chewable tablet Take 1 tablet by mouth once daily. Jtlsuakemowew-Cbrhgiuy-Xezcqm (CENTRUM SILVER) tab Take 1 tablet by mouth once daily. FAMILY HISTORY Problem Relation Age of Onset Heart Mother Heart Father Ischemic Heart Disease Father Hypertension Brother Lipids Brother None No Family History No lung disease. Social History Tobacco Use Smoking status: Former Smoker Packs/day: 1.00 Years: 12.00 Pack years: 12.00 Types: Cigarettes Start date: 1952 Quit date: 09/27/1964 Years since quittin.6 Smokeless tobacco: Never Used Tobacco comment: ETS: Father smoked in childhood home, then quit. Spouse non-smoker. Vaping Use Vaping Use: Never used Substance Use Topics Alcohol use: No Drug use: No PHYSICAL EXAM BP 142/74 Pulse (!) 58 Resp 20 Wt 75.3 kg (166 lb) BMI 26.79 kg/m Appearance: well dressed well groomed, cooperative and pleasant Behavior: Poor eye contact, tearful, tense Speech: fluent and coherent Mood: depressed Affect: constricted ASSESSMENT/PLAN: 1. Anxiety in acute stress reaction - ICD9: 308.0, ICD10: F41.1, F43.0 Lengthy discussion with patient and son regarding normal grieving process and treatment. No evidence to support use of medications such as antidepressants or anxiolytics, patient has no history of depression or anxiety. Strongly recommend counseling. Patient very hesitant at first but eventually agreeable. His son will call insurance to check on coverage and in network counselors. Patient would still like to try medication as well. Explained that medications take 4-6 weeks for maximum effectiveness and unlikely to be beneficial. He would still like to try. - Start Lexapro 5 mg daily - Reviewed benefits of sleep hygeine, diet and exercise - I also strongly recommend patient's soon remove all firearms from his house but patient adamantlyrefused and insistent that he would never commit suicide. - Instructed patient or son to contact office or oikrl-yl-lbon after-hours promptly should condition worsen or any new symptoms appear. - [facility] and after hours crisis line Prescription instructions reviewed with patient as applicable. Potential red flag symptoms discussed with the patient. Reviewed appropriate action plan to take if red flag symptoms occur. Patient agreeable to treatment plan. During this patient visit I have spent approximately 30 minutes in counseling regarding treatment options, medications and coordinating care. Emily Rich APRN.CNP documented in this encounterUniversity Hospitals Geauga [facility] Center07-27-2022 Miscellaneous Notes* Telephone Encounter - Chel Rich APRN.CNP - 04/22/2022 8:03 AM EDT Please see below, you are seeing this patient today. Please let me know if you need anything. Thank you Chel Rich APRN.CNP * Telephone Encounter - Katelynn Mcmillan RN - 04/20/2022 9:39 AM EDT Patient's son Jayesh calling to make appt for patient to discuss antidepressant therapy. Patient's spouse in November this year and son reports patient stating he would like antidepressant therapy. Son reports patient is not expressing any intent of harming self or others. Patient has a physical scheduled with Dr. Hinton on 04/29/22 however son would like patient seen sooner to discuss antidepressant therapy. No appt available with Dr. Hinton or Chel Rich earlier this week. Appt made with Emily Rich for 04/22/22. Katelynn Mcmillan RN documented in this encounterUniversity Hospitals Geauga [facility] Center07-20-2022 History of Present illness Narrative* Zee Toro MD - 04/15/2022 12:37 PM EDT ESTABLISHED PATIENT OFFICE VISIT HISTORY OF PRESENT ILLNESS No chief complaint on file. Isaias Slaughter is a 86 year old male who presents w/sons x 2 for follow up regarding his bladder and ureteral UCC LAB RESULTS Creatinine Date Value Ref Range Status 03/27/2022 1.14 0.73 - 1.22 mg/dL Final PSA (ng/mL) Date Value 03/27/2022 <0.02 01/05/2022 <0.02 10/14/2021 <0.02 07/22/2021 <0.03 04/21/2021 <0.03 12/31/2020 <0.03 09/02/2020 <0.03 05/20/2020 <0.03 02/26/2020 <0.03 12/04/2019 <0.03 09/06/2019 <0.03 06/13/2019 <0.03 Color (no units) Date Value 10/04/2017 Yellow Clarity (no units) Date Value 10/04/2017 Clear Glucose, Urine (mg/dL) Date Value 10/04/2017 Negative Bilirubin, Urine (no units) Date Value 10/04/2017 Negative Ketones, Urine (no units) Date Value 10/04/2017 Negative Specific [place], Ur (no units) Date Value 10/04/2017 1.018 Hemoglobin/Blood,Ur ( ) Date Value 10/04/2017 2+ pH, Urine (no units) Date Value 10/04/2017 6.0 Protein, Urine (mg/dL) Date Value 10/04/2017 Negative Urobilinogen (no units) Date Value 10/04/2017 Normal Nitrites (no units) Date Value 10/04/2017 Negative Leukest (no units) Date Value 10/04/2017 Negative ALLERGIES Allergen Reactions Amoxicillin Diarrhea, GI Upset Patient cannot tolerate this medication Lisinopril Cough Jycdstr-Ytt-Hff Red* Other: See Comments Patient states he will not take statins because of what they did to his . MEDICATIONS: losartan (COZAAR) 100 mg tablet Take 1 tablet by mouth once daily. Calcium Citrate 250 mg calcium tab Take 1 tablet by mouth once daily. metFORMIN (GLUCOPHAGE) 500 mg tablet Take 1 tablet by mouth daily with lunch. amLODIPine (NORVASC) 5 mg tablet Take 1 tablet by mouth once daily. abiraterone (ZYTIGA) 250 mg tablet Take 4 tablets by mouth once daily. predniSONE (DELTASONE) 5 mg tablet Take 1 tablet by mouth once daily. Take with breakfast potassium chloride ER (K-DUR, KLOR-CON) 20 mEq tablet Take 1 tablet by mouth once daily. folic acid 1 mg tablet Take 1 tablet by mouth once daily. Cholecalciferol, Vitamin D3, (VITAMIN D) 25 mcg (1,000 unit) cap Take 1 capsule by mouth once daily. aspirin (CHILDRENS ASPIRIN) 81 mg chewable tablet Take 1 tablet by mouth once daily. Ufrwhmktlouji-Zxpuwwel-Asgqdt (CENTRUM SILVER) tab Take 1 tablet by mouth once daily. REVIEW OF SYSTEMS GENERAL:no unintentional weight loss, malaise or fevers. NEUROLOGIC: pt is alert and oriented RESPIRATORY: Negative for cough, wheezing or shortness of breath. GASTROINTESTINAL: No nausea, vomiting, or diarrhea GENITOURINARY: Positive for BPH The remainder of the ROS was reviewed and is negative. 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 PAST SURGICAL HISTORY Procedure Laterality Date ANES TRANSURETHRAL RESECTION OF BLADDER TUMOR 2013 ANES TRANSURETHRAL RESECTION OF BLADDER TUMOR 2011 APPENDECTOMY 1946 BLADDER BIOSPY FULGUR 2018 CARDIAC 2013 stent to RCA CATARACT EXTRACTION W/ INTRAOCULAR LENS IMPLANT HX Right COLON SURGERY HX 2020 COLONOSCOPY FLX DX W/COLLJ SPEC WHEN PFRMD 08/25/2012 Colonoscopy report 5 years COLSC FLX W/RMVL OF TUMOR POLYP LESION SNARE TQ 12/30/2006 CYSTOSCOPY,+URETEROSCOPY Right 03/2021 CYSTOURETHROSCOPY,FULGUR .5-2CM LESN 01/2021 CYSTOURETHROSCOPY,FULGUR .5-2CM LESN 2011 PAST SURGICAL HISTORY OF 2002 TURB BLADDER CANCER RMVL LUNG OTHER THAN PNEUMONECTOMY 1 LOBE LOBECT 02/21/2014 Mediastinoscopy, right posterolateral thoracotomy, right lower lobectomy, lymphadenectomy, rib blocks RPR 1ST INGUN HRNA AGE 6 YRS/> REDUCIBLE Left 03/19/2017 SIGMOIDOSCOPY FLX DX W/COLLJ SPEC BR/WA IF PFRMD Sigmoidoscopy TONSILLECTOMY PRIMARY/SECONDARY <AGE 13 Tonsillectomy SOCIAL HISTORY Social History Tobacco Use Smoking status: Former Smoker Packs/day: 1.00 Years: 12.00 Pack years: 12.00 Types: Cigarettes Start date: 1952 Quit date: 09/27/1964 Years since quittin.5 Smokeless tobacco: Never Used Tobacco comment: ETS: Father smoked in childhood home, then quit. Spouse non-smoker. Vaping Use Vaping Use: Never used Substance Use Topics Alcohol use: No Drug use: No PHYSICAL EXAMINATION General appearance: Well appearing, alert, in no acute distress, well-hydrated, well nourished Psych Alert and oriented to person, place and time Respiratory: no wheezing or rhonchi Genitourinary: MALE EXAM: Exam NOT Indicated 03/27/2022 PSA <0.02Scr 1.1 03/17/2022 TURBT Mult papillary 01/05/2022 PSA <0.02, Scr 0.8 and GFR 85 01/05/2022 CT a/p severe right hydro, distal ureteral mass, 10cm splenic mass, no HARDY 04/21/2021 CT chest stable pulmonary nodules and post surgical changes 04/21/2021 PSA <0.03 04/01/2021 Right ureteroscopy ++ tumor 03/11/2021 CT abd right hydro, ureteral tumors, no LN 02/04/2021 TURBT LG superficial UCC, ++ right ureteral tumor 12/31/2020 PSA <0.03, Scr 0.9 07/22/2020 CT a/p (Norma) right renal cyst 04/30/2020 PSA <0.03 10/12/2018 PSA 0.21 08/16/2018 PSA 0.48 10/07/2017 Cysto, bbx LG superficial UCC 02/21/2014 right lower lobectomy along with mediastinal lymph node dissection 12/28/2013 Bladder bx (Nichelle) neg Assessment and Plan: Prostate cancer- pt with stage I non-small cell lung Ca, ++ h/o metastatic (bone mets) Lillian 6 and 7 ( 3+4) prostate cancer s/p XRT in about 2011 - currenty on Lupron Q 3 mths as well as Zytiga 1000mg and prednisone 5mg QD per Dr Perkins @ [facility] - PSA 04/17 stable @ <0.02 bladder UCC- pt with ++ h/o superficial bladder cancer initially dx [address] Steward then saw Dr Cavazos - latest TURBT 02/2022 , no path?? 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 He understands cancer will likely progress. 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 If so will find him an appt slot. Let me know Zee Toro MD documented in this encounterUniversity Hospitals Geauga Medical Center07-11-2022 Miscellaneous Notes* Telephone Encounter - Ana Kerns LPN - 04/06/2022 5:03 PM EDT Patient has been identified by name and date of : Yes Patient phones for refill(s): Pending Prescriptions Disp Refills LOSARTAN 100 MG TABLET 90 tablet 0 Sig: Take 1 tablet by mouth once daily. CHANDLER: No Date of last office visit in primary care: 10/17/20 Last 2 Encounter Wt Readings: Date: Wt: 04/01/2022 77.6 kg (171 lb) 03/10/2022 77.1 kg (170 lb) Previous labs/tests for medication: Blood Pressure: BUN (mg/dL) Date Value 03/27/2022 24 10/14/2021 15 Sodium (mmol/L) Date Value 03/27/2022 140 10/14/2021 137 Last 1 Encounter BP Readings: Date: BP: 04/01/2022 129/58 Please advise. Thank you. Ana Kerns LPN documented in this encounterUniversity Hospitals Geauga Medical Center07-06-2022 Nurse Note* Winter Hawkins LPN - 04/01/2022 9:07 AM EDT Pt here for injection of lupron. Given IM in right buttock. Pt tolerated well. For all other information regarding today, see today's OV note with Dr Reese. Winter Hawkins LPN documented in this encounterUniversity Hospitals Geauga Medical Center06-23-2022 Miscellaneous Notes* Telephone Encounter - Chrsital Fatima RN - 03/19/2022 9:09 AM EDT Faxed PT orders and demographics sheet to [facility] in [place] to fax # [phone]. * Telephone Encounter - Kya Hinton MD - 03/18/2022 7:46 PM EDT I have ordered the Physical Therapy [facility] * Telephone Encounter - Sailaja Hung RN - 03/18/2022 3:45 PM EDT RICHELLE Constantino @ [facility] calls requesting an order for Physical Therapy evaluation and treat. Patient requests PT order for gait and balance issues and would like order faxed to [facility] in [place]. Sailaja Hung RN documented in this encounterUniversity Hospitals Geauga Medical Center06-23-2022 Miscellaneous Notes* Telephone Encounter - Mayela Hernández - 03/19/2022 8:04 AM EDT Surgery on 03/17/22. Need post op information please and thank you. Mayela Hernández documented in this encounterUniversity Hospitals Geauga Medical Center06-21-2022 Miscellaneous Notes* Telephone Encounter - Zee Toro MD - 03/17/2022 1:44 PM EDT I spoke with pt/son prior to OR today, offered t omove up his Neph-unit(s) but pt says April is his abebe month so wants surgery then. Abnl EKG today, pts son has contacted his Industrial Health Engineer who willschedule office visit to review- follow up as need pre op Cards clearance Zee Toro MD * Telephone Encounter - Abril Krueger RN - 03/16/2022 12:14 PM EDT RICHELLE Constantino @ [facility] calling on behalf of patient with request for order for Physical Therapy evaluation and treat. Patient requests PT order for gait and balance issues and would like orderfaxed to [facility] in [place]. He has an appointment scheduled on Sunday 03/18. Abril Krueger RN documented in this encounterUniversity Hospitals Geauga Medical Center05-25-2022 Miscellaneous Notes* Telephone Encounter - Vidya Hein - 02/18/2022 11:02 AM EDT Nothing next week. Patient is scheduled 03/17/22 and Jayesh, patients son, was notified of dates and times. I informed Jayesh I am trying to find a date for Robot. Vidya Hein * Telephone Encounter - Zee Toro MD - 02/18/2022 9:27 AM EDT Schedule TURBT, gemzaar- see if you can ad don next week Also start looking for a robot spot for right nephroureterectomy Zee Toro MD documented in this encounterUniversity Hospitals Geauga Medical Center05-04-2022 History of Present illness Narrative* Zee Toro MD - 01/28/2022 3:38 PM EDT CYSTOSCOPY PROCEDURE NOTE: Isaias Slaughter is a 86 year old male who presents with hematuria gross for cystoscopy. Pt ID verified with patient: Yes Procedure verified with patient: Yes Procedure confirmed with physician and whanau support worker: Yes Fire Safety Check List Reviewed: Yes UNIVERSAL PROTOCOL / SAFETY CHECKLIST Procedure to be Performed: cysto Sign In: A Moment of CARE was completed. Personnel directly involved with the procedure wore the appropriate PPE (Personal Protective Equipment). Patient/Surrogate Stated/Verified: PATIENT VERIFIED(optional for EMERGENT procedures): Patient name, Date of , Relevant allergies and The intended procedure Time Out Communication: Intended patient and procedure match the source documents. Consent documented and matches the intended procedure. Sign Out: SIGN OUT (optional for EMERGENT procedures): No specimen collected. Zee Toro MD A urinalysis was performed revealing no evidence of infection. Pre-op dx: bladder cancer Post-op dx: same The benefits, risks, alternatives of the cystoscopy procedure and personnel were discussed with thepatient. The verbal consent was obtained and the patient agrees to proceed. Procedure: The patient was placed on the procedure table in the supine position and prepped and draped in the usual sterile fashion. 2% Lidocaine Jelly was placed per urethra as an anesthetic in the standard fashion. Once adequate local anesthesia was achieved, the tip of the flexible cystoscope was carefully placed into the urethra under direct visual guidance. The scope was negotiated through the pendulous urethra to the level of the bulbar urethra with no evidence of stricture. The verumontanum came into view and the scope was negotiated through the prostatic urethra which showed evidence of bi lobar occlusive disease. The bladder was entered and careful estrella endoscopy was carried out. The posterior, superior and lateral renee and dome of the bladder were all well visualized and the scope was retroflexed upon itself. 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 At the conclusion of the procedure, the flexible cystoscope was removed atraumatically. The patienttolerated the procedure without complications. Patient was given standard post-procedure instructions, and was directed to complete the course of oral antibiotics and increase oral fluid intake as directed. 01/05/2022 PSA <0.02, Scr 0.8 and GFR 85 01/05/2022 CT a/p severe right hydro, distal ureteral mass, 10cm splenic mass, no HARDY 04/21/2021 CT chest stable pulmonary nodules and post surgical changes 04/21/2021 PSA <0.03 04/01/2021 Right ureteroscopy ++ tumor 03/11/2021 CT abd right hydro, ureteral tumors, no LN 02/04/2021 TURBT LG superficial UCC, ++ right ureteral tumor 12/31/2020 PSA <0.03, Scr 0.9 07/22/2020 CT a/p ([facility]) right renal cyst 04/30/2020 PSA <0.03 10/12/2018 PSA 0.21 08/16/2018 PSA 0.48 10/07/2017 Cysto, bbx LG superficial UCC 02/21/2014 right lower lobectomy along with mediastinal lymph node dissection 12/28/2013 Bladder bx ([facility]) neg Assessment and Plan: Prostate cancer- pt with stage I non-small cell lung Ca, ++ h/o metastatic (bone mets) Lillian 6 and 7 ( 3+4) prostate cancer s/p XRT in about 2011, currenty on Lupron Q 3 mths as well as taking Zytiga 1000mg/prednisone 5mg QD per Dr Perkins @ [facility] - PSA 01/16 stable @ <0.02 bladder UCC- pt with ++ h/o superficial bladder cancer initially dx [address] Steward then saw Dr Cavazos - latest cysto 06/2021 negative 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 CLINIC NO: [id number]. ATTENDING PHYSICIAN: Miguel Angel Reese MD. DATE OF SERVICE: 01/07/2022 DIAGNOSIS: History of metastatic prostate cancer with (intrathoracic lymph node and lung metastasis) & stage I non-small cell lung cancer- right lower lobe in complete remission. - history of superficial bladder cancer- status post TURB HPI: This is a 86-year-old gentleman with history of lung cancer, bladder cancer and 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 Oncological history: Lung cancer; He underwent a right lower lobectomy along with mediastinal lymph node dissection. Surgery was performed on 02/21/14. 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 The tumor was 5 x 4.2 x 1.8 cm in size. There was no evidence of any pleural involvement. Noevidence of any lymphovascular invasion identified. There was no evidence of any perineural invasion. The patient had no evidence of any mediastinal lymph node metastasis by this tumor. The right 10R was positive for metastasis the the phenotyping was different from the lung cancer. The lymph node showed a staining pattern consistent with adenocarcinoma of prostatic primary. This was positive for PSA, positive for prostate-specific membrane antigen as well as the prostatic acid phosphatase. The adenocarcinoma was diffusely positive for synaptophysin and focally positive for chromogranin highlighting a neuroendocrine differentiating pattern. Prostate cancer; history of prostate cancer ( Lillian score 6- 7 ) diagnosed about 10 years ago. This was organ confined and was treated with external beam radiation. The patient had a PSA level checked last year which was reported at 0.28. Started LHRH agonist for metastatic prostate cancer last year with isolated bone metastasis. Complained of severe muscle aches and pain, fatigue and weight loss after treatment started. Bladder cancer; history of multiple superficial bladder cancers. These have been removed through a TURB. Cystoscopy recently was positive for low-grade papillary carcinoma. current treatment: Lupron/ Abiraterone/ prednisone Interim history: Patient is doing well. He denies muscle weakness or atrophy. He has occasional hotflashes. He has mild gynecomastia but no breast tenderness. No headaches or neurological symptoms. No bone pain, cough or shortness of breath. Weight and appetite remain stable. He has no hematuria. No pain or pressure in his pelvis. He has a follow-up with urology next month for noninvasive cancer of the right ureter. He recently lost his and currently grieving for herloss. All medications & allergies updated and reviewed by me. . REVIEW OF SYSTEMS: CONSTITUTIONAL: No fevers, chills, nightsweats, unintended weight loss HEENT: Denies frequent or severe heaches, nasal congestion/sinus symptoms, problematic allergy problems. EYES: No diplopia or blurry vision. CARDIOVASCULAR: No chest pain, dyspnea, palpitations, orthopnea, PND, ankle edema. PULM: No dyspnea, unexplained cough. GI: No dysphagia/odynophagia, problematic reflux, constipation, diarrhea, changes in stool habits, hematochezia, melena. : No new urinary complaints, including dysuria, gross hematuria or pyuria. NEURO: No new balance problems, peripheral weakness/paresthesias or numbness of concern. MUSC-SKEL: No new joint pain, swelling, or erythema. PSY: No concerns regarding depression, anxiety or panic. INTEGUMENTARY: No new skin changes (rash, new or changing mole, new growth) no jaundice PHYSICAL EXAMINATION: 86 year-old gentleman in no acute distress; depressed mood Performance status 80% BP 158/70 Pulse 57 Temp 97.6 Wt 174 lb (78.9kg) SpO2 96% HEENT: Head is normocephalic, atraumatic. Sclerae anicteric, conjunctivae pink. PEERL. EOMs are intact. Oropharynx is benign. LYMPHATICS: There is no palpable adenopathy in the neck, supraclavicular region, axillae, or groin. LUNGS: Lungs are clear to percussion and auscultation. Right thoracotomy scar-healed. BREASTS: Without skin dimpling, nipple discharge or masses. + Gynecomastia HEART: Heart is normal without murmurs, gallops, or rubs. ABDOMEN: Soft and nontender without organomegaly. No masses can be palpated. EXTREMITIES: Are without edema. NEUROLOGIC: Exam is physiologic LABS: Component Latest Ref Rng & Units 01/05/2022 WBC 3.70 - 11.00 k/uL 6.67 RBC 4.20 - 6.00 m/uL 4.76 Hemoglobin 13.0 - 17.0 g/dL 14.8 Hematocrit 39.0 - 51.0 % 45.3 MCV 80.0 - 100.0 fL 95.2 MCH 26.0 - 34.0 pg 31.1 MCHC 30.5 - 36.0 g/dL 32.7 RDW-CV 11.5 - 15.0 % 13.3 Platelet Count 150 - 400 k/uL 318 MPV 9.0 - 12.7 fL 12.0 Neut% % 74.0 Abs Neut (ANC) 1.45 - 7.50 k/uL 4.93 Lymph% % 12.9 Abs Lymph 1.00 - 4.00 k/uL 0.86 (L) [place]% % 9.6 Abs [place] <0.87 k/uL 0.64 Eosin% % 2.2 Abs Eosin <0.46 k/uL 0.15 Baso% % 0.7 Abs Baso <0.11 k/uL 0.05 Immature Gran % % 0.6 IMMATURE GRANS (ABS) <0.10 k/uL 0.04 NRBC /100 WBC 0.0 Absolute nRBC <0.01 k/uL <0.01 DTYPE Auto Component Latest Ref Rng & Units 01/05/2022 Protein, Total 6.3 - 8.0 g/dL 6.8 Albumin 3.9 - 4.9 g/dL 4.7 Calcium 8.5 - 10.2 mg/dL 9.9 Bilirubin, Total 0.2 - 1.3 mg/dL 0.4 Alkaline Phosphatase 38 - 113 U/L 81 AST 14 - 40 U/L 12 (L) ALT 10 - 54 U/L 8 (L) Glucose 74 - 99 mg/dL 100 (H) BUN 9 - 24 mg/dL 15 Creatinine 0.73 - 1.22 mg/dL 0.85 Sodium 136 - 144 mmol/L 142 Potassium 3.7 - 5.1 mmol/L 3.8 Chloride 97 - 105 mmol/L 102 CO2 22 - 30 mmol/L 28 Anion Gap 9 - 18 mmol/L 12 eGFR >=60 mL/min/1.73m 85 PSA <2.60 ng/mL <0.02 CT Chest Comparison: 04/21/2021 IMPRESSION: No developing suspicious mass or adenopathy in the chest CT abdomen pelvis:COMPARISON: 03/11/2021 and 05/19/18 IMPRESSION: Persistent moderate right hydroureteronephrosis to the level urinary bladder. Obstructing distal ureteral/bladder lesion at this level suspected. Some additional increase in the size of the splenic mass. No additional developing mass or adenopathy. 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 (Lung & intrathoracic lymph node metastases) -Tolerating androgen ablation therapy. -In complete remission with combined androgen ablation treatment Plan: - Continue Lupron 22.5 mg IM every 3 months - Continue Zytiga 1000mg once daily along with prednisone 5mg once daily for metastatic prostate cancer. - Repeat CBC, CMP, PSA and OV in 3 months. 2. History of non-small cell lung cancer - in complete remission -JEFFRY Plan: -Follow-up chest x-ray in 6 months 3. 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 -Asymptomatic -Progression of disease noted on his most recent CT scan Plan: -Follow-up with urology regarding surgical option for his his right ureter renal pelvis cancer.. I spent 30 minutes in the visit, with more than 50% of the total [id number] time of the visit in counseling / coordination of care. Portions of this documentation were copied and pasted from previous office visit notes in order to provide a cohesive continuity of the history. The note has been reviewed and edited and updated as necessary. Miguel Angel Reese MD cc: Dr. Kya Toro documented in this encounterUniversity Hospitals [facility]04-13-2022 Miscellaneous Notes* Telephone Encounter - Flory Pascal Ma - 01/07/2022 11:28 AM EDT LED [employer] message sent. * Telephone Encounter - Chel Rich APRN.CNP - 01/05/2022 4:29 PM EDT Patient has not been seen by PCP in over a year. Needs an annual exam. Thank you Chel Rich APRN.CNP documented in this encounterUniversity Hospitals Ge[facility]04-13-2022 Nurse Note* Winter Hawkins LPN - 01/07/2022 9:50 AM EDT Pt here for injection of Lupron. Given IM in Left buttock. Pt tolerated well. For all other information regarding today, see today's OV note with Dr Reese. Winter Hawkins LPN documented in this encounterUniversity Hospitals [facility]04-13-2022 Instructions* Patient Instructions* Miguel Angel Reese MD - 01/07/2022 9:36 AM EDT - Continue Zytiga 1000mg once daily along with prednisone 5mg once daily for metastatic prostate cancer. 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 Shave biopsy 2 today. 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 No tubes/drains in place. Patient reports adequate pain control on oxycodone and percocet prn. PLAN: -Cont current regimen -Bowel regimen: colace 100 mg BID and bisacodyl supp daily prn . DVT prophylaxis 02/22/2014 10/04/2017 Overview: The pt is on Lovenox 40mg daily SC and SCD for VTE prophylaxis. No signs or symptoms of DVT/PE. The patient is at highrisk for VTE. Plan: - Continue Lovenox 40mg daily SC - SCD/LJ - Encourage continued ambulation . DISPOSITION AND FOLLOW-UP 02/22/20142013 Overview: Isaias Slaughter is and lives in [place], [place]. At this time, we anticipate that the patient will be discharged home once clinically stable. Plan: - Discuss needs with patient. No needs identified - Collaborate with Case management to facilitate DC process - Discharge home today. Return to OPD in 7-10 days for postop follow up . 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 Shave biopsy 2 today. 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 No tubes/drains in place. Patient reports adequate pain control on oxycodone and percocet prn. PLAN: -Cont current regimen -Bowel regimen: colace 100 mg BID and bisacodyl supp daily prn . DVT prophylaxis 02/22/2014 10/04/2017 Overview: The pt is on Lovenox 40mg daily SC and SCD for VTE prophylaxis. No signs or symptoms of DVT/PE. The patient is at highrisk for VTE. Plan: - Continue Lovenox 40mg daily SC - SCD/LJ - Encourage continued ambulation . DISPOSITION AND FOLLOW-UP 02/22/20142013 Overview: Isaias Slaughter is and lives in [place], [place]. At this time, we anticipate that the patient will be discharged home once clinically stable. Plan: - Discuss needs with patient. No needs identified - Collaborate with Case management to facilitate DC process - Discharge home today. Return to OPD in 7-10 days for postop follow up . 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 Shave biopsy 2 today. 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 No tubes/drains in place. Patient reports adequate pain control on oxycodone and percocet prn. PLAN: -Cont current regimen -Bowel regimen: colace 100 mg BID and bisacodyl supp daily prn . DVT prophylaxis 02/22/2014 10/04/2017 Overview: The pt is on Lovenox 40mg daily SC and SCD for VTE prophylaxis. No signs or symptoms of DVT/PE. The patient is at highrisk for VTE. Plan: - Continue Lovenox 40mg daily SC - SCD/LJ - Encourage continued ambulation . DISPOSITION AND FOLLOW-UP 02/22/20142013 Overview: Isaias Slaughter is and lives in [place], [place]. At this time, we anticipate that the patient will be discharged home once clinically stable. Plan: - Discuss needs with patient. No needs identified - Collaborate with Case management to facilitate DC process - Discharge home today. Return to OPD in 7-10 days for postop follow up . 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 Shave biopsy 2 today. 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 No tubes/drains in place. Patient reports adequate pain control on oxycodone and percocet prn. PLAN: -Cont current regimen -Bowel regimen: colace 100 mg BID and bisacodyl supp daily prn . DVT prophylaxis 02/22/2014 10/04/2017 Overview: The pt is on Lovenox 40mg daily SC and SCD for VTE prophylaxis. No signs or symptoms of DVT/PE. The patient is at highrisk for VTE. Plan: - Continue Lovenox 40mg daily SC - SCD/LJ - Encourage continued ambulation . DISPOSITION AND FOLLOW-UP 02/22/20142013 Overview: Isaias Slaughter is and lives in [place], [place]. At this time, we anticipate that the patient will be discharged home once clinically stable. Plan: - Discuss needs with patient. No needs identified - Collaborate with Case management to facilitate DC process - Discharge home today. Return to OPD in 7-10 days for postop follow up . 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 Shave biopsy 2 today. 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 No tubes/drains in place. Patient reports adequate pain control on oxycodone and percocet prn. PLAN: -Cont current regimen -Bowel regimen: colace 100 mg BID and bisacodyl supp daily prn . DVT prophylaxis 02/22/2014 10/04/2017 Overview: The pt is on Lovenox 40mg daily SC and SCD for VTE prophylaxis. No signs or symptoms of DVT/PE. The patient is at highrisk for VTE. Plan: - Continue Lovenox 40mg daily SC - SCD/LJ - Encourage continued ambulation . DISPOSITION AND FOLLOW-UP 02/22/20142013 Overview: Isaias Slaughter is and lives in [place], [place]. At this time, we anticipate that the patient will be discharged home once clinically stable. Plan: - Discuss needs with patient. No needs identified - Collaborate with Case management to facilitate DC process - Discharge home today. Return to OPD in 7-10 days for postop follow up . 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 Shave biopsy 2 today. 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 No tubes/drains in place. Patient reports adequate pain control on oxycodone and percocet prn. PLAN: -Cont current regimen -Bowel regimen: colace 100 mg BID and bisacodyl supp daily prn . DVT prophylaxis 02/22/2014 10/04/2017 Overview: The pt is on Lovenox 40mg daily SC and SCD for VTE prophylaxis. No signs or symptoms of DVT/PE. The patient is at highrisk for VTE. Plan: - Continue Lovenox 40mg daily SC - SCD/LJ - Encourage continued ambulation . DISPOSITION AND FOLLOW-UP 02/22/20142013 Overview: Isaias Slaughter is and lives in [place], [place]. At this time, we anticipate that the patient will be discharged home once clinically stable. Plan: - Discuss needs with patient. No needs identified - Collaborate with Case management to facilitate DC process - Discharge home today. Return to OPD in 7-10 days for postop follow up . 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 Shave biopsy 2 today. 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 No tubes/drains in place. Patient reports adequate pain control on oxycodone and percocet prn. PLAN: -Cont current regimen -Bowel regimen: colace 100 mg BID and bisacodyl supp daily prn . DVT prophylaxis 02/22/2014 10/04/2017 Overview: The pt is on Lovenox 40mg daily SC and SCD for VTE prophylaxis. No signs or symptoms of DVT/PE. The patient is at highrisk for VTE. Plan: - Continue Lovenox 40mg daily SC - SCD/LJ - Encourage continued ambulation . DISPOSITION AND FOLLOW-UP 02/22/20142013 Overview: Isaias Slaughter is and lives in [place], [place]. At this time, we anticipate that the patient will be discharged home once clinically stable. Plan: - Discuss needs with patient. No needs identified - Collaborate with Case management to facilitate DC process - Discharge home today. Return to OPD in 7-10 days for postop follow up . 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 Shave biopsy 2 today. 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 No tubes/drains in place. Patient reports adequate pain control on oxycodone and percocet prn. PLAN: -Cont current regimen -Bowel regimen: colace 100 mg BID and bisacodyl supp daily prn . DVT prophylaxis 02/22/2014 10/04/2017 Overview: The pt is on Lovenox 40mg daily SC and SCD for VTE prophylaxis. No signs or symptoms of DVT/PE. The patient is at highrisk for VTE. Plan: - Continue Lovenox 40mg daily SC - SCD/LJ - Encourage continued ambulation . DISPOSITION AND FOLLOW-UP 02/22/20142013 Overview: Isaias Slaughter is and lives in [place], [place]. At this time, we anticipate that the patient will be discharged home once clinically stable. Plan: - Discuss needs with patient. No needs identified - Collaborate with Case management to facilitate DC process - Discharge home today. Return to OPD in 7-10 days for postop follow up . 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 Shave biopsy 2 today. 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 No tubes/drains in place. Patient reports adequate pain control on oxycodone and percocet prn. PLAN: -Cont current regimen -Bowel regimen: colace 100 mg BID and bisacodyl supp daily prn . DVT prophylaxis 02/22/2014 10/04/2017 Overview: The pt is on Lovenox 40mg daily SC and SCD for VTE prophylaxis. No signs or symptoms of DVT/PE. The patient is at highrisk for VTE. Plan: - Continue Lovenox 40mg daily SC - SCD/LJ - Encourage continued ambulation . DISPOSITION AND FOLLOW-UP 02/22/20142013 Overview: Isaias Slaughter is and lives in [place], [place]. At this time, we anticipate that the patient will be discharged home once clinically stable. Plan: - Discuss needs with patient. No needs identified - Collaborate with Case management to facilitate DC process - Discharge home today. Return to OPD in 7-10 days for postop follow up . 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 Shave biopsy 2 today. 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 No tubes/drains in place. Patient reports adequate pain control on oxycodone and percocet prn. PLAN: -Cont current regimen -Bowel regimen: colace 100 mg BID and bisacodyl supp daily prn . DVT prophylaxis 02/22/2014 10/04/2017 Overview: The pt is on Lovenox 40mg daily SC and SCD for VTE prophylaxis. No signs or symptoms of DVT/PE. The patient is at highrisk for VTE. Plan: - Continue Lovenox 40mg daily SC - SCD/LJ - Encourage continued ambulation . DISPOSITION AND FOLLOW-UP 02/22/20142013 Overview: Isaias Slaughter is and lives in [place], [place]. At this time, we anticipate that the patient will be discharged home once clinically stable. Plan: - Discuss needs with patient. No needs identified - Collaborate with Case management to facilitate DC process - Discharge home today. Return to OPD in 7-10 days for postop follow up . 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 Shave biopsy 2 today. 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 No tubes/drains in place. Patient reports adequate pain control on oxycodone and percocet prn. PLAN: -Cont current regimen -Bowel regimen: colace 100 mg BID and bisacodyl supp daily prn . DVT prophylaxis 02/22/2014 10/04/2017 Overview: The pt is on Lovenox 40mg daily SC and SCD for VTE prophylaxis. No signs or symptoms of DVT/PE. The patient is at highrisk for VTE. Plan: - Continue Lovenox 40mg daily SC - SCD/LJ - Encourage continued ambulation . DISPOSITION AND FOLLOW-UP 02/22/20142013 Overview: Isaias Slaughter is and lives in [place], [place]. At this time, we anticipate that the patient will be discharged home once clinically stable. Plan: - Discuss needs with patient. No needs identified - Collaborate with Case management to facilitate DC process - Discharge home today. Return to OPD in 7-10 days for postop follow up . 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 Shave biopsy 2 today. 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 No tubes/drains in place. Patient reports adequate pain control on oxycodone and percocet prn. PLAN: -Cont current regimen -Bowel regimen: colace 100 mg BID and bisacodyl supp daily prn . DVT prophylaxis 02/22/2014 10/04/2017 Overview: The pt is on Lovenox 40mg daily SC and SCD for VTE prophylaxis. No signs or symptoms of DVT/PE. The patient is at highrisk for VTE. Plan: - Continue Lovenox 40mg daily SC - SCD/LJ - Encourage continued ambulation . DISPOSITION AND FOLLOW-UP 02/22/20142013 Overview: Isaias Slaughter is and lives in [place], [place]. At this time, we anticipate that the patient will be discharged home once clinically stable. Plan: - Discuss needs with patient. No needs identified - Collaborate with Case management to facilitate DC process - Discharge home today. Return to OPD in 7-10 days for postop follow up . 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 Shave biopsy 2 today. 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 No tubes/drains in place. Patient reports adequate pain control on oxycodone and percocet prn. PLAN: -Cont current regimen -Bowel regimen: colace 100 mg BID and bisacodyl supp daily prn . DVT prophylaxis 02/22/2014 10/04/2017 Overview: The pt is on Lovenox 40mg daily SC and SCD for VTE prophylaxis. No signs or symptoms of DVT/PE. The patient is at highrisk for VTE. Plan: - Continue Lovenox 40mg daily SC - SCD/LJ - Encourage continued ambulation . DISPOSITION AND FOLLOW-UP 02/22/20142013 Overview: Isaias Slaughter is and lives in [place], [place]. At this time, we anticipate that the patient will be discharged home once clinically stable. Plan: - Discuss needs with patient. No needs identified - Collaborate with Case management to facilitate DC process - Discharge home today. Return to OPD in 7-10 days for postop follow up . 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 Shave biopsy 2 today. 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 No tubes/drains in place. Patient reports adequate pain control on oxycodone and percocet prn. PLAN: -Cont current regimen -Bowel regimen: colace 100 mg BID and bisacodyl supp daily prn . DVT prophylaxis 02/22/2014 10/04/2017 Overview: The pt is on Lovenox 40mg daily SC and SCD for VTE prophylaxis. No signs or symptoms of DVT/PE. The patient is at highrisk for VTE. Plan: - Continue Lovenox 40mg daily SC - SCD/LJ - Encourage continued ambulation . DISPOSITION AND FOLLOW-UP 02/22/20142013 Overview: Isaias Slaughter is and lives in [place], [place]. At this time, we anticipate that the patient will be discharged home once clinically stable. Plan: - Discuss needs with patient. No needs identified - Collaborate with Case management to facilitate DC process - Discharge home today. Return to OPD in 7-10 days for postop follow up . 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 Shave biopsy 2 today. 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 No tubes/drains in place. Patient reports adequate pain control on oxycodone and percocet prn. PLAN: -Cont current regimen -Bowel regimen: colace 100 mg BID and bisacodyl supp daily prn . DVT prophylaxis 02/22/2014 10/04/2017 Overview: The pt is on Lovenox 40mg daily SC and SCD for VTE prophylaxis. No signs or symptoms of DVT/PE. The patient is at highrisk for VTE. Plan: - Continue Lovenox 40mg daily SC - SCD/LJ - Encourage continued ambulation . DISPOSITION AND FOLLOW-UP 02/22/20142013 Overview: Isaias Slaughter is and lives in [place], [place]. At this time, we anticipate that the patient will be discharged home once clinically stable. Plan: - Discuss needs with patient. No needs identified - Collaborate with Case management to facilitate DC process - Discharge home today. Return to OPD in 7-10 days for postop follow up . 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 Shave biopsy 2 today. 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 No tubes/drains in place. Patient reports adequate pain control on oxycodone and percocet prn. PLAN: -Cont current regimen -Bowel regimen: colace 100 mg BID and bisacodyl supp daily prn . DVT prophylaxis 02/22/2014 10/04/2017 Overview: The pt is on Lovenox 40mg daily SC and SCD for VTE prophylaxis. No signs or symptoms of DVT/PE. The patient is at highrisk for VTE. Plan: - Continue Lovenox 40mg daily SC - SCD/LJ - Encourage continued ambulation . DISPOSITION AND FOLLOW-UP 02/22/20142013 Overview: Isaias Slaughter is and lives in [place], [place]. At this time, we anticipate that the patient will be discharged home once clinically stable. Plan: - Discuss needs with patient. No needs identified - Collaborate with Case management to facilitate DC process - Discharge home today. Return to OPD in 7-10 days for postop follow up . 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 Shave biopsy 2 today. 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 No tubes/drains in place. Patient reports adequate pain control on oxycodone and percocet prn. PLAN: -Cont current regimen -Bowel regimen: colace 100 mg BID and bisacodyl supp daily prn . DVT prophylaxis 02/22/2014 10/04/2017 Overview: The pt is on Lovenox 40mg daily SC and SCD for VTE prophylaxis. No signs or symptoms of DVT/PE. The patient is at highrisk for VTE. Plan: - Continue Lovenox 40mg daily SC - SCD/LJ - Encourage continued ambulation . DISPOSITION AND FOLLOW-UP 02/22/20142013 Overview: Isaias Slaughter is and lives in [place], [place]. At this time, we anticipate that the patient will be discharged home once clinically stable. Plan: - Discuss needs with patient. No needs identified - Collaborate with Case management to facilitate DC process - Discharge home today. Return to OPD in 7-10 days for postop follow up . 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 Shave biopsy 2 today. 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 No tubes/drains in place. Patient reports adequate pain control on oxycodone and percocet prn. PLAN: -Cont current regimen -Bowel regimen: colace 100 mg BID and bisacodyl supp daily prn . DVT prophylaxis 02/22/2014 10/04/2017 Overview: The pt is on Lovenox 40mg daily SC and SCD for VTE prophylaxis. No signs or symptoms of DVT/PE. The patient is at highrisk for VTE. Plan: - Continue Lovenox 40mg daily SC - SCD/LJ - Encourage continued ambulation . DISPOSITION AND FOLLOW-UP 02/22/20142013 Overview: Isaias Slaughter is and lives in [place], [place]. At this time, we anticipate that the patient will be discharged home once clinically stable. Plan: - Discuss needs with patient. No needs identified - Collaborate with Case management to facilitate DC process - Discharge home today. Return to OPD in 7-10 days for postop follow up . 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 Shave biopsy 2 today. 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 No tubes/drains in place. Patient reports adequate pain control on oxycodone and percocet prn. PLAN: -Cont current regimen -Bowel regimen: colace 100 mg BID and bisacodyl supp daily prn . DVT prophylaxis 02/22/2014 10/04/2017 Overview: The pt is on Lovenox 40mg daily SC and SCD for VTE prophylaxis. No signs or symptoms of DVT/PE. The patient is at highrisk for VTE. Plan: - Continue Lovenox 40mg daily SC - SCD/LJ - Encourage continued ambulation . DISPOSITION AND FOLLOW-UP 02/22/20142013 Overview: Isaias Slaughter is and lives in [place], [place]. At this time, we anticipate that the patient will be discharged home once clinically stable. Plan: - Discuss needs with patient. No needs identified - Collaborate with Case management to facilitate DC process - Discharge home today. Return to OPD in 7-10 days for postop follow up . 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 Shave biopsy 2 today. 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 No tubes/drains in place. Patient reports adequate pain control on oxycodone and percocet prn. PLAN: -Cont current regimen -Bowel regimen: colace 100 mg BID and bisacodyl supp daily prn . DVT prophylaxis 02/22/2014 10/04/2017 Overview: The pt is on Lovenox 40mg daily SC and SCD for VTE prophylaxis. No signs or symptoms of DVT/PE. The patient is at highrisk for VTE. Plan: - Continue Lovenox 40mg daily SC - SCD/LJ - Encourage continued ambulation . DISPOSITION AND FOLLOW-UP 02/22/20142013 Overview: Isaias Slaughter is and lives in [place], [place]. At this time, we anticipate that the patient will be discharged home once clinically stable. Plan: - Discuss needs with patient. No needs identified - Collaborate with Case management to facilitate DC process - Discharge home today. Return to [facility]PD in 7-10 days for postop follow up . 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 Shave biopsy 2 today. 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 No tubes/drains in place. Patient reports adequate pain control on oxycodone and percocet prn. PLAN: -Cont current regimen -Bowel regimen: colace 100 mg BID and bisacodyl supp daily prn . DVT prophylaxis 02/22/2014 10/04/2017 Overview: The pt is on Lovenox 40mg daily SC and SCD for VTE prophylaxis. No signs or symptoms of DVT/PE. The patient is at highrisk for VTE. Plan: - Continue Lovenox 40mg daily SC - SCD/LJ - Encourage continued ambulation . DISPOSITION AND FOLLOW-UP 02/22/20142013 Overview: Isaias Slaughter is and lives in [place], [place]. At this time, we anticipate that the patient will be discharged home once clinically stable. Plan: - Discuss needs with patient. No needs identified - Collaborate with Case management to facilitate DC process - Discharge home today. Return to [facility]PD in 7-10 days for postop follow up . 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 Shave biopsy 2 today. 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 No tubes/drains in place. Patient reports adequate pain control on oxycodone and percocet prn. PLAN: -Cont current regimen -Bowel regimen: colace 100 mg BID and bisacodyl supp daily prn . DVT prophylaxis 02/22/2014 10/04/2017 Overview: The pt is on Lovenox 40mg daily SC and SCD for VTE prophylaxis. No signs or symptoms of DVT/PE. The patient is at highrisk for VTE. Plan: - Continue Lovenox 40mg daily SC - SCD/LJ - Encourage continued ambulation . DISPOSITION AND FOLLOW-UP 02/22/20142013 Overview: Isaias Slaughter is and lives in [place], [place]. At this time, we anticipate that the patient will be discharged home once clinically stable. Plan: - Discuss needs with patient. No needs identified - Collaborate with Case management to facilitate DC process - Discharge home today. Return to OPD in 7-10 days for postop follow up . 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 Shave biopsy 2 today. 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 No tubes/drains in place. Patient reports adequate pain control on oxycodone and percocet prn. PLAN: -Cont current regimen -Bowel regimen: colace 100 mg BID and bisacodyl supp daily prn . DVT prophylaxis 02/22/2014 10/04/2017 Overview: The pt is on Lovenox 40mg daily SC and SCD for VTE prophylaxis. No signs or symptoms of DVT/PE. The patient is at highrisk for VTE. Plan: - Continue Lovenox 40mg daily SC - SCD/LJ - Encourage continued ambulation . DISPOSITION AND FOLLOW-UP 02/22/20142013 Overview: Isaias Slaughter is and lives in [place], [place]. At this time, we anticipate that the patient will be discharged home once clinically stable. Plan: - Discuss needs with patient. No needs identified - Collaborate with Case management to facilitate DC process - Discharge home today. Return to OPD in 7-10 days for postop follow up . 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 Shave biopsy 2 today. 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 No tubes/drains in place. Patient reports adequate pain control on oxycodone and percocet prn. PLAN: -Cont current regimen -Bowel regimen: colace 100 mg BID and bisacodyl supp daily prn . DVT prophylaxis 02/22/2014 10/04/2017 Overview: The pt is on Lovenox 40mg daily SC and SCD for VTE prophylaxis. No signs or symptoms of DVT/PE. The patient is at highrisk for VTE. Plan: - Continue Lovenox 40mg daily SC - SCD/LJ - Encourage continued ambulation . DISPOSITION AND FOLLOW-UP 02/22/20142013 Overview: Isaias Slaughter is and lives in [place], [place]. At this time, we anticipate that the patient will be discharged home once clinically stable. Plan: - Discuss needs with patient. No needs identified - Collaborate with Case management to facilitate DC process - Discharge home today. Return to OPD in 7-10 days for postop follow up . 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 Shave biopsy 2 today. 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 No tubes/drains in place. Patient reports adequate pain control on oxycodone and percocet prn. PLAN: -Cont current regimen -Bowel regimen: colace 100 mg BID and bisacodyl supp daily prn . DVT prophylaxis 02/22/2014 10/04/2017 Overview: The pt is on Lovenox 40mg daily SC and SCD for VTE prophylaxis. No signs or symptoms of DVT/PE. The patient is at highrisk for VTE. Plan: - Continue Lovenox 40mg daily SC - SCD/LJ - Encourage continued ambulation . DISPOSITION AND FOLLOW-UP 02/22/20142013 Overview: Isaias Slaughter is and lives in [place], [place]. At this time, we anticipate that the patient will be discharged home once clinically stable. Plan: - Discuss needs with patient. No needs identified - Collaborate with Case management to facilitate DC process - Discharge home today. Return to OPD in 7-10 days for postop follow up . 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 Shave biopsy 2 today. 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 No tubes/drains in place. Patient reports adequate pain control on oxycodone and percocet prn. PLAN: -Cont current regimen -Bowel regimen: colace 100 mg BID and bisacodyl supp daily prn . DVT prophylaxis 02/22/2014 10/04/2017 Overview: The pt is on Lovenox 40mg daily SC and SCD for VTE prophylaxis. No signs or symptoms of DVT/PE. The patient is at highrisk for VTE. Plan: - Continue Lovenox 40mg daily SC - SCD/LJ - Encourage continued ambulation . DISPOSITION AND FOLLOW-UP 02/22/20142013 Overview: Isaias Slaughter is and lives in [place], [place]. At this time, we anticipate that the patient will be discharged home once clinically stable. Plan: - Discuss needs with patient. No needs identified - Collaborate with Case management to facilitate DC process - Discharge home today. Return to OPD in 7-10 days for postop follow up . 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 Shave biopsy 2 today. 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 No tubes/drains in place. Patient reports adequate pain control on oxycodone and percocet prn. PLAN: -Cont current regimen -Bowel regimen: colace 100 mg BID and bisacodyl supp daily prn . DVT prophylaxis 02/22/2014 10/04/2017 Overview: The pt is on Lovenox 40mg daily SC and SCD for VTE prophylaxis. No signs or symptoms of DVT/PE. The patient is at highrisk for VTE. Plan: - Continue Lovenox 40mg daily SC - SCD/LJ - Encourage continued ambulation . DISPOSITION AND FOLLOW-UP 02/22/20142013 Overview: Isaias Slaughter is and lives in [place], [place]. At this time, we anticipate that the patient will be discharged home once clinically stable. Plan: - Discuss needs with patient. No needs identified - Collaborate with Case management to facilitate DC process - Discharge home today. Return to OPD in 7-10 days for postop follow up . 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 Shave biopsy 2 today. 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 No tubes/drains in place. Patient reports adequate pain control on oxycodone and percocet prn. PLAN: -Cont current regimen -Bowel regimen: colace 100 mg BID and bisacodyl supp daily prn . DVT prophylaxis 02/22/2014 10/04/2017 Overview: The pt is on Lovenox 40mg daily SC and SCD for VTE prophylaxis. No signs or symptoms of DVT/PE. The patient is at highrisk for VTE. Plan: - Continue Lovenox 40mg daily SC - SCD/LJ - Encourage continued ambulation . DISPOSITION AND FOLLOW-UP 02/22/20142013 Overview: Isaias Slaughter is and lives in [place], [place]. At this time, we anticipate that the patient will be discharged home once clinically stable. Plan: - Discuss needs with patient. No needs identified - Collaborate with Case management to facilitate DC process - Discharge home today. Return to OPD in 7-10 days for postop follow up . 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 Shave biopsy 2 today. 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 No tubes/drains in place. Patient reports adequate pain control on oxycodone and percocet prn. PLAN: -Cont current regimen -Bowel regimen: colace 100 mg BID and bisacodyl supp daily prn . DVT prophylaxis 02/22/2014 10/04/2017 Overview: The pt is on Lovenox 40mg daily SC and SCD for VTE prophylaxis. No signs or symptoms of DVT/PE. The patient is at highrisk for VTE. Plan: - Continue Lovenox 40mg daily SC - SCD/LJ - Encourage continued ambulation . DISPOSITION AND FOLLOW-UP 02/22/20142013 Overview: Isaias Slaughter is and lives in [place], [place]. At this time, we anticipate that the patient will be discharged home once clinically stable. Plan: - Discuss needs with patient. No needs identified - Collaborate with Case management to facilitate DC process - Discharge home today. Return to OPD in 7-10 days for postop follow up . 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 Shave biopsy 2 today. 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 No tubes/drains in place. Patient reports adequate pain control on oxycodone and percocet prn. PLAN: -Cont current regimen -Bowel regimen: colace 100 mg BID and bisacodyl supp daily prn . DVT prophylaxis 02/22/2014 10/04/2017 Overview: The pt is on Lovenox 40mg daily SC and SCD for VTE prophylaxis. No signs or symptoms of DVT/PE. The patient is at highrisk for VTE. Plan: - Continue Lovenox 40mg daily SC - SCD/LJ - Encourage continued ambulation . DISPOSITION AND FOLLOW-UP 02/22/20142013 Overview: Isaias Slaughter is and lives in [place], [place]. At this time, we anticipate that the patient will be discharged home once clinically stable. Plan: - Discuss needs with patient. No needs identified - Collaborate with Case management to facilitate DC process - Discharge home today. Return to OPD in 7-10 days for postop follow up . 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 Shave biopsy 2 today. 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 No tubes/drains in place. Patient reports adequate pain control on oxycodone and percocet prn. PLAN: -Cont current regimen -Bowel regimen: colace 100 mg BID and bisacodyl supp daily prn . DVT prophylaxis 02/22/2014 10/04/2017 Overview: The pt is on Lovenox 40mg daily SC and SCD for VTE prophylaxis. No signs or symptoms of DVT/PE. The patient is at highrisk for VTE. Plan: - Continue Lovenox 40mg daily SC - SCD/LJ - Encourage continued ambulation . DISPOSITION AND FOLLOW-UP 02/22/20142013 Overview: Isaias Slaughter is and lives in [place], [place]. At this time, we anticipate that the patient will be discharged home once clinically stable. Plan: - Discuss needs with patient. No needs identified - Collaborate with Case management to facilitate DC process - Discharge home today. Return to OPD in 7-10 days for postop follow up . 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 Shave biopsy 2 today. 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 No tubes/drains in place. Patient reports adequate pain control on oxycodone and percocet prn. PLAN: -Cont current regimen -Bowel regimen: colace 100 mg BID and bisacodyl supp daily prn . DVT prophylaxis 02/22/2014 10/04/2017 Overview: The pt is on Lovenox 40mg daily SC and SCD for VTE prophylaxis. No signs or symptoms of DVT/PE. The patient is at highrisk for VTE. Plan: - Continue Lovenox 40mg daily SC - SCD/LJ - Encourage continued ambulation . DISPOSITION AND FOLLOW-UP 02/22/20142013 Overview: Isaias Slaughter is and lives in [place], [place]. At this time, we anticipate that the patient will be discharged home once clinically stable. Plan: - Discuss needs with patient. No needs identified - Collaborate with Case management to facilitate DC process - Discharge home today. Return to OPD in 7-10 days for postop follow up . 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 Shave biopsy 2 today. 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 No tubes/drains in place. Patient reports adequate pain control on oxycodone and percocet prn. PLAN: -Cont current regimen -Bowel regimen: colace 100 mg BID and bisacodyl supp daily prn . DVT prophylaxis 02/22/2014 10/04/2017 Overview: The pt is on Lovenox 40mg daily SC and SCD for VTE prophylaxis. No signs or symptoms of DVT/PE. The patient is at highrisk for VTE. Plan: - Continue Lovenox 40mg daily SC - SCD/JL - Encourage continued ambulation . DISPOSITION AND FOLLOW-UP 02/22/20142013 Overview: Isaias Slaughter is and lives in [place], [place]. At this time, we anticipate that the patient will be discharged home once clinically stable. Plan: - Discuss needs with patient. No needs identified - Collaborate with Case management to facilitate DC process - Discharge home today. Return to OPD in 7-10 days for postop follow up . 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 Shave biopsy 2 today. 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 No tubes/drains in place. Patient reports adequate pain control on oxycodone and percocet prn. PLAN: -Cont current regimen -Bowel regimen: colace 100 mg BID and bisacodyl supp daily prn . DVT prophylaxis 02/22/2014 10/04/2017 Overview: The pt is on Lovenox 40mg daily SC and SCD for VTE prophylaxis. No signs or symptoms of DVT/PE. The patient is at highrisk for VTE. Plan: - Continue Lovenox 40mg daily SC - SCD/LJ - Encourage continued ambulation . DISPOSITION AND FOLLOW-UP 02/22/20142013 Overview: Isaias Slaughter is and lives in [place], [place]. At this time, we anticipate that the patient will be discharged home once clinically stable. Plan: - Discuss needs with patient. No needs identified - Collaborate with Case management to facilitate DC process - Discharge home today. Return to [facility]PD in 7-10 days for postop follow up . 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 Shave biopsy 2 today. 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 No tubes/drains in place. Patient reports adequate pain control on oxycodone and percocet prn. PLAN: -Cont current regimen -Bowel regimen: colace 100 mg BID and bisacodyl supp daily prn . DVT prophylaxis 02/22/2014 10/04/2017 Overview: The pt is on Lovenox 40mg daily SC and SCD for VTE prophylaxis. No signs or symptoms of DVT/PE. The patient is at highrisk for VTE. Plan: - Continue Lovenox 40mg daily SC - SCD/LJ - Encourage continued ambulation . DISPOSITION AND FOLLOW-UP 02/22/20142013 Overview: Isaias Slaughter is and lives in [place], [place]. At this time, we anticipate that the patient will be discharged home once clinically stable. Plan: - Discuss needs with patient. No needs identified - Collaborate with Case management to facilitate DC process - Discharge home today. Return to [facility]PD in 7-10 days for postop follow up . 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 Shave biopsy 2 today. 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 No tubes/drains in place. Patient reports adequate pain control on oxycodone and percocet prn. PLAN: -Cont current regimen -Bowel regimen: colace 100 mg BID and bisacodyl supp daily prn . DVT prophylaxis 02/22/2014 10/04/2017 Overview: The pt is on Lovenox 40mg daily SC and SCD for VTE prophylaxis. No signs or symptoms of DVT/PE. The patient is at highrisk for VTE. Plan: - Continue Lovenox 40mg daily SC - SCD/LJ - Encourage continued ambulation . DISPOSITION AND FOLLOW-UP 02/22/20142013 Overview: Isaias Slaughter is and lives in [place], [place]. At this time, we anticipate that the patient will be discharged home once clinically stable. Plan: - Discuss needs with patient. No needs identified - Collaborate with Case management to facilitate DC process - Discharge home today. Return to OPD in 7-10 days for postop follow up . 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 Shave biopsy 2 today. 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 No tubes/drains in place. Patient reports adequate pain control on oxycodone and percocet prn. PLAN: -Cont current regimen -Bowel regimen: colace 100 mg BID and bisacodyl supp daily prn . DVT prophylaxis 02/22/2014 10/04/2017 Overview: The pt is on Lovenox 40mg daily SC and SCD for VTE prophylaxis. No signs or symptoms of DVT/PE. The patient is at highrisk for VTE. Plan: - Continue Lovenox 40mg daily SC - SCD/LJ - Encourage continued ambulation . DISPOSITION AND FOLLOW-UP 02/22/20142013 Overview: Isaias Slaughter is and lives in [place], [place]. At this time, we anticipate that the patient will be discharged home once clinically stable. Plan: - Discuss needs with patient. No needs identified - Collaborate with Case management to facilitate DC process - Discharge home today. Return to OPD in 7-10 days for postop follow up . 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 Shave biopsy 2 today. 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 No tubes/drains in place. Patient reports adequate pain control on oxycodone and percocet prn. PLAN: -Cont current regimen -Bowel regimen: colace 100 mg BID and bisacodyl supp daily prn . DVT prophylaxis 02/22/2014 10/04/2017 Overview: The pt is on Lovenox 40mg daily SC and SCD for VTE prophylaxis. No signs or symptoms of DVT/PE. The patient is at highrisk for VTE. Plan: - Continue Lovenox 40mg daily SC - SCD/LJ - Encourage continued ambulation . DISPOSITION AND FOLLOW-UP 02/22/20142013 Overview: Isaias Slaughter is and lives in [place], [place]. At this time, we anticipate that the patient will be discharged home once clinically stable. Plan: - Discuss needs with patient. No needs identified - Collaborate with Case management to facilitate DC process - Discharge home today. Return to OPD in 7-10 days for postop follow up . 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 Shave biopsy 2 today. 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 No tubes/drains in place. Patient reports adequate pain control on oxycodone and percocet prn. PLAN: -Cont current regimen -Bowel regimen: colace 100 mg BID and bisacodyl supp daily prn . DVT prophylaxis 02/22/2014 10/04/2017 Overview: The pt is on Lovenox 40mg daily SC and SCD for VTE prophylaxis. No signs or symptoms of DVT/PE. The patient is at highrisk for VTE. Plan: - Continue Lovenox 40mg daily SC - SCD/LJ - Encourage continued ambulation . DISPOSITION AND FOLLOW-UP 02/22/20142013 Overview: Isaias Slaughter is and lives in [place], [place]. At this time, we anticipate that the patient will be discharged home once clinically stable. Plan: - Discuss needs with patient. No needs identified - Collaborate with Case management to facilitate DC process - Discharge home today. Return to OPD in 7-10 days for postop follow up . 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 Shave biopsy 2 today. 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 No tubes/drains in place. Patient reports adequate pain control on oxycodone and percocet prn. PLAN: -Cont current regimen -Bowel regimen: colace 100 mg BID and bisacodyl supp daily prn . DVT prophylaxis 02/22/2014 10/04/2017 Overview: The pt is on Lovenox 40mg daily SC and SCD for VTE prophylaxis. No signs or symptoms of DVT/PE. The patient is at highrisk for VTE. Plan: - Continue Lovenox 40mg daily SC - SCD/LJ - Encourage continued ambulation . DISPOSITION AND FOLLOW-UP 02/22/20142013 Overview: Isaias Slaughter is and lives in [place], [place]. At this time, we anticipate that the patient will be discharged home once clinically stable. Plan: - Discuss needs with patient. No needs identified - Collaborate with Case management to facilitate DC process - Discharge home today. Return to OPD in 7-10 days for postop follow up . 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 Shave biopsy 2 today. 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 No tubes/drains in place. Patient reports adequate pain control on oxycodone and percocet prn. PLAN: -Cont current regimen -Bowel regimen: colace 100 mg BID and bisacodyl supp daily prn . DVT prophylaxis 02/22/2014 10/04/2017 Overview: The pt is on Lovenox 40mg daily SC and SCD for VTE prophylaxis. No signs or symptoms of DVT/PE. The patient is at highrisk for VTE. Plan: - Continue Lovenox 40mg daily SC - SCD/LJ - Encourage continued ambulation . DISPOSITION AND FOLLOW-UP 02/22/20142013 Overview: Isaias Slaughter is and lives in [place], [place]. At this time, we anticipate that the patient will be discharged home once clinically stable. Plan: - Discuss needs with patient. No needs identified - Collaborate with Case management to facilitate DC process - Discharge home today. Return to OPD in 7-10 days for postop follow up . 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 Shave biopsy 2 today. 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 No tubes/drains in place. Patient reports adequate pain control on oxycodone and percocet prn. PLAN: -Cont current regimen -Bowel regimen: colace 100 mg BID and bisacodyl supp daily prn . DVT prophylaxis 02/22/2014 10/04/2017 Overview: The pt is on Lovenox 40mg daily SC and SCD for VTE prophylaxis. No signs or symptoms of DVT/PE. The patient is at highrisk for VTE. Plan: - Continue Lovenox 40mg daily SC - SCD/LJ - Encourage continued ambulation . DISPOSITION AND FOLLOW-UP 02/22/20142013 Overview: Isaias Slaughter is and lives in [place], [place]. At this time, we anticipate that the patient will be discharged home once clinically stable. Plan: - Discuss needs with patient. No needs identified - Collaborate with Case management to facilitate DC process - Discharge home today. Return to OPD in 7-10 days for postop follow up . 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 Shave biopsy 2 today. 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 No tubes/drains in place. Patient reports adequate pain control on oxycodone and percocet prn. PLAN: -Cont current regimen -Bowel regimen: colace 100 mg BID and bisacodyl supp daily prn . DVT prophylaxis 02/22/2014 10/04/2017 Overview: The pt is on Lovenox 40mg daily SC and SCD for VTE prophylaxis. No signs or symptoms of DVT/PE. The patient is at highrisk for VTE. Plan: - Continue Lovenox 40mg daily SC - SCD/LJ - Encourage continued ambulation . DISPOSITION AND FOLLOW-UP 02/22/20142013 Overview: Isaias Slaughter is and lives in [place], [place]. At this time, we anticipate that the patient will be discharged home once clinically stable. Plan: - Discuss needs with patient. No needs identified - Collaborate with Case management to facilitate DC process - Discharge home today. Return to OPD in 7-10 days for postop follow up . 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 Shave biopsy 2 today. 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 No tubes/drains in place. Patient reports adequate pain control on oxycodone and percocet prn. PLAN: -Cont current regimen -Bowel regimen: colace 100 mg BID and bisacodyl supp daily prn . DVT prophylaxis 02/22/2014 10/04/2017 Overview: The pt is on Lovenox 40mg daily SC and SCD for VTE prophylaxis. No signs or symptoms of DVT/PE. The patient is at highrisk for VTE. Plan: - Continue Lovenox 40mg daily SC - SCD/LJ - Encourage continued ambulation . DISPOSITION AND FOLLOW-UP 02/22/20142013 Overview: Isaias Slaughter is and lives in [place], [place]. At this time, we anticipate that the patient will be discharged home once clinically stable. Plan: - Discuss needs with patient. No needs identified - Collaborate with Case management to facilitate DC process - Discharge home today. Return to OPD in 7-10 days for postop follow up . 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 Shave biopsy 2 today. 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 No tubes/drains in place. Patient reports adequate pain control on oxycodone and percocet prn. PLAN: -Cont current regimen -Bowel regimen: colace 100 mg BID and bisacodyl supp daily prn . DVT prophylaxis 02/22/2014 10/04/2017 Overview: The pt is on Lovenox 40mg daily SC and SCD for VTE prophylaxis. No signs or symptoms of DVT/PE. The patient is at highrisk for VTE. Plan: - Continue Lovenox 40mg daily SC - SCD/LJ - Encourage continued ambulation . DISPOSITION AND FOLLOW-UP 02/22/20142013 Overview: Isaias Slaughter is and lives in [place], [place]. At this time, we anticipate that the patient will be discharged home once clinically stable. Plan: - Discuss needs with patient. No needs identified - Collaborate with Case management to facilitate DC process - Discharge home today. Return to OPD in 7-10 days for postop follow up . 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 Shave biopsy 2 today. 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 No tubes/drains in place. Patient reports adequate pain control on oxycodone and percocet prn. PLAN: -Cont current regimen -Bowel regimen: colace 100 mg BID and bisacodyl supp daily prn . DVT prophylaxis 02/22/2014 10/04/2017 Overview: The pt is on Lovenox 40mg daily SC and SCD for VTE prophylaxis. No signs or symptoms of DVT/PE. The patient is at highrisk for VTE. Plan: - Continue Lovenox 40mg daily SC - SCD/LJ - Encourage continued ambulation . DISPOSITION AND FOLLOW-UP 02/22/20142013 Overview: Isaias Slaughter is and lives in [place], [place]. At this time, we anticipate that the patient will be discharged home once clinically stable. Plan: - Discuss needs with patient. No needs identified - Collaborate with Case management to facilitate DC process - Discharge home today. Return to OPD in 7-10 days for postop follow up . 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 Shave biopsy 2 today. 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 No tubes/drains in place. Patient reports adequate pain control on oxycodone and percocet prn. PLAN: -Cont current regimen -Bowel regimen: colace 100 mg BID and bisacodyl supp daily prn . DVT prophylaxis 02/22/2014 10/04/2017 Overview: The pt is on Lovenox 40mg daily SC and SCD for VTE prophylaxis. No signs or symptoms of DVT/PE. The patient is at highrisk for VTE. Plan: - Continue Lovenox 40mg daily SC - SCD/LJ - Encourage continued ambulation . DISPOSITION AND FOLLOW-UP 02/22/20142013 Overview: Isaias Slaughter is and lives in [place], [place]. At this time, we anticipate that the patient will be discharged home once clinically stable. Plan: - Discuss needs with patient. No needs identified - Collaborate with Case management to facilitate DC process - Discharge home today. Return to [facility]PD in 7-10 days for postop follow up . 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 Shave biopsy 2 today. 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 No tubes/drains in place. Patient reports adequate pain control on oxycodone and percocet prn. PLAN: -Cont current regimen -Bowel regimen: colace 100 mg BID and bisacodyl supp daily prn . DVT prophylaxis 02/22/2014 10/04/2017 Overview: The pt is on Lovenox 40mg daily SC and SCD for VTE prophylaxis. No signs or symptoms of DVT/PE. The patient is at highrisk for VTE. Plan: - Continue Lovenox 40mg daily SC - SCD/LJ - Encourage continued ambulation . DISPOSITION AND FOLLOW-UP 02/22/20142013 Overview: Isaias Slaughter is and lives in [place], [place]. At this time, we anticipate that the patient will be discharged home once clinically stable. Plan: - Discuss needs with patient. No needs identified - Collaborate with Case management to facilitate DC process - Discharge home today. Return to [facility]PD in 7-10 days for postop follow up . 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 Shave biopsy 2 today. 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 No tubes/drains in place. Patient reports adequate pain control on oxycodone and percocet prn. PLAN: -Cont current regimen -Bowel regimen: colace 100 mg BID and bisacodyl supp daily prn . DVT prophylaxis 02/22/2014 10/04/2017 Overview: The pt is on Lovenox 40mg daily SC and SCD for VTE prophylaxis. No signs or symptoms of DVT/PE. The patient is at highrisk for VTE. Plan: - Continue Lovenox 40mg daily SC - SCD/LJ - Encourage continued ambulation . DISPOSITION AND FOLLOW-UP 02/22/20142013 Overview: Isaias Slaughter is and lives in [place], [place]. At this time, we anticipate that the patient will be discharged home once clinically stable. Plan: - Discuss needs with patient. No needs identified - Collaborate with Case management to facilitate DC process - Discharge home today. Return to [facility]PD in 7-10 days for postop follow up . 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 Shave biopsy 2 today. 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 No tubes/drains in place. Patient reports adequate pain control on oxycodone and percocet prn. PLAN: -Cont current regimen -Bowel regimen: colace 100 mg BID and bisacodyl supp daily prn . DVT prophylaxis 02/22/2014 10/04/2017 Overview: The pt is on Lovenox 40mg daily SC and SCD for VTE prophylaxis. No signs or symptoms of DVT/PE. The patient is at highrisk for VTE. Plan: - Continue Lovenox 40mg daily SC - SCD/LJ - Encourage continued ambulation . DISPOSITION AND FOLLOW-UP 02/22/20142013 Overview: Isaias Slaughter is and lives in [place], [place]. At this time, we anticipate that the patient will be discharged home once clinically stable. Plan: - Discuss needs with patient. No needs identified - Collaborate with Case management to facilitate DC process - Discharge home today. Return to OPD in 7-10 days for postop follow up . 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 Shave biopsy 2 today. 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 No tubes/drains in place. Patient reports adequate pain control on oxycodone and percocet prn. PLAN: -Cont current regimen -Bowel regimen: colace 100 mg BID and bisacodyl supp daily prn . DVT prophylaxis 02/22/2014 10/04/2017 Overview: The pt is on Lovenox 40mg daily SC and SCD for VTE prophylaxis. No signs or symptoms of DVT/PE. The patient is at highrisk for VTE. Plan: - Continue Lovenox 40mg daily SC - SCD/LJ - Encourage continued ambulation . DISPOSITION AND FOLLOW-UP 02/22/20142013 Overview: Isaias Slaughter is and lives in [place], [place]. At this time, we anticipate that the patient will be discharged home once clinically stable. Plan: - Discuss needs with patient. No needs identified - Collaborate with Case management to facilitate DC process - Discharge home today. Return to OPD in 7-10 days for postop follow up . 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 Shave biopsy 2 today. 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 No tubes/drains in place. Patient reports adequate pain control on oxycodone and percocet prn. PLAN: -Cont current regimen -Bowel regimen: colace 100 mg BID and bisacodyl supp daily prn . DVT prophylaxis 02/22/2014 10/04/2017 Overview: The pt is on Lovenox 40mg daily SC and SCD for VTE prophylaxis. No signs or symptoms of DVT/PE. The patient is at highrisk for VTE. Plan: - Continue Lovenox 40mg daily SC - SCD/LJ - Encourage continued ambulation . DISPOSITION AND FOLLOW-UP 02/22/20142013 Overview: Isaias Slaughter is and lives in [place], [place]. At this time, we anticipate that the patient will be discharged home once clinically stable. Plan: - Discuss needs with patient. No needs identified - Collaborate with Case management to facilitate DC process - Discharge home today. Return to OPD in 7-10 days for postop follow up . 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 Shave biopsy 2 today. 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 No tubes/drains in place. Patient reports adequate pain control on oxycodone and percocet prn. PLAN: -Cont current regimen -Bowel regimen: colace 100 mg BID and bisacodyl supp daily prn . DVT prophylaxis 02/22/2014 10/04/2017 Overview: The pt is on Lovenox 40mg daily SC and SCD for VTE prophylaxis. No signs or symptoms of DVT/PE. The patient is at highrisk for VTE. Plan: - Continue Lovenox 40mg daily SC - SCD/LJ - Encourage continued ambulation . DISPOSITION AND FOLLOW-UP 02/22/20142013 Overview: Isaias Slaughter is and lives in [place], [place]. At this time, we anticipate that the patient will be discharged home once clinically stable. Plan: - Discuss needs with patient. No needs identified - Collaborate with Case management to facilitate DC process - Discharge home today. Return to OPD in 7-10 days for postop follow up . 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 Shave biopsy 2 today. 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 No tubes/drains in place. Patient reports adequate pain control on oxycodone and percocet prn. PLAN: -Cont current regimen -Bowel regimen: colace 100 mg BID and bisacodyl supp daily prn . DVT prophylaxis 02/22/2014 10/04/2017 Overview: The pt is on Lovenox 40mg daily SC and SCD for VTE prophylaxis. No signs or symptoms of DVT/PE. The patient is at highrisk for VTE. Plan: - Continue Lovenox 40mg daily SC - SCD/LJ - Encourage continued ambulation . DISPOSITION AND FOLLOW-UP 02/22/20142013 Overview: Isaias Slaughter is and lives in [place], [place]. At this time, we anticipate that the patient will be discharged home once clinically stable. Plan: - Discuss needs with patient. No needs identified - Collaborate with Case management to facilitate DC process - Discharge home today. Return to OPD in 7-10 days for postop follow up . 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 Shave biopsy 2 today. 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 No tubes/drains in place. Patient reports adequate pain control on oxycodone and percocet prn. PLAN: -Cont current regimen -Bowel regimen: colace 100 mg BID and bisacodyl supp daily prn . DVT prophylaxis 02/22/2014 10/04/2017 Overview: The pt is on Lovenox 40mg daily SC and SCD for VTE prophylaxis. No signs or symptoms of DVT/PE. The patient is at highrisk for VTE. Plan: - Continue Lovenox 40mg daily SC - SCD/LJ - Encourage continued ambulation . DISPOSITION AND FOLLOW-UP 02/22/20142013 Overview: Isaias Slaughter is and lives in [place], [place]. At this time, we anticipate that the patient will be discharged home once clinically stable. Plan: - Discuss needs with patient. No needs identified - Collaborate with Case management to facilitate DC process - Discharge home today. Return to OPD in 7-10 days for postop follow up . 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 Shave biopsy 2 today. 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 No tubes/drains in place. Patient reports adequate pain control on oxycodone and percocet prn. PLAN: -Cont current regimen -Bowel regimen: colace 100 mg BID and bisacodyl supp daily prn . DVT prophylaxis 02/22/2014 10/04/2017 Overview: The pt is on Lovenox 40mg daily SC and SCD for VTE prophylaxis. No signs or symptoms of DVT/PE. The patient is at highrisk for VTE. Plan: - Continue Lovenox 40mg daily SC - SCD/LJ - Encourage continued ambulation . DISPOSITION AND FOLLOW-UP 02/22/20142013 Overview: Isaias Slaughter is and lives in [place], [place]. At this time, we anticipate that the patient will be discharged home once clinically stable. Plan: - Discuss needs with patient. No needs identified - Collaborate with Case management to facilitate DC process - Discharge home today. Return to OPD in 7-10 days for postop follow up . 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 Shave biopsy 2 today. 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 No tubes/drains in place. Patient reports adequate pain control on oxycodone and percocet prn. PLAN: -Cont current regimen -Bowel regimen: colace 100 mg BID and bisacodyl supp daily prn . DVT prophylaxis 02/22/2014 10/04/2017 Overview: The pt is on Lovenox 40mg daily SC and SCD for VTE prophylaxis. No signs or symptoms of DVT/PE. The patient is at highrisk for VTE. Plan: - Continue Lovenox 40mg daily SC - SCD/LJ - Encourage continued ambulation . DISPOSITION AND FOLLOW-UP 02/22/20142013 Overview: Isaias Slaughter is and lives in [place], [place]. At this time, we anticipate that the patient will be discharged home once clinically stable. Plan: - Discuss needs with patient. No needs identified - Collaborate with Case management to facilitate DC process - Discharge home today. Return to OPD in 7-10 days for postop follow up . 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 Shave biopsy 2 today. 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 No tubes/drains in place. Patient reports adequate pain control on oxycodone and percocet prn. PLAN: -Cont current regimen -Bowel regimen: colace 100 mg BID and bisacodyl supp daily prn . DVT prophylaxis 02/22/2014 10/04/2017 Overview: The pt is on Lovenox 40mg daily SC and SCD for VTE prophylaxis. No signs or symptoms of DVT/PE. The patient is at highrisk for VTE. Plan: - Continue Lovenox 40mg daily SC - SCD/LJ - Encourage continued ambulation . DISPOSITION AND FOLLOW-UP 02/22/20142013 Overview: Isaias Slaughter is and lives in [place], [place]. At this time, we anticipate that the patient will be discharged home once clinically stable. Plan: - Discuss needs with patient. No needs identified - Collaborate with Case management to facilitate DC process - Discharge home today. Return to OPD in 7-10 days for postop follow up . 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 Shave biopsy 2 today. 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 No tubes/drains in place. Patient reports adequate pain control on oxycodone and percocet prn. PLAN: -Cont current regimen -Bowel regimen: colace 100 mg BID and bisacodyl supp daily prn . DVT prophylaxis 02/22/2014 10/04/2017 Overview: The pt is on Lovenox 40mg daily SC and SCD for VTE prophylaxis. No signs or symptoms of DVT/PE. The patient is at highrisk for VTE. Plan: - Continue Lovenox 40mg daily SC - SCD/LJ - Encourage continued ambulation . DISPOSITION AND FOLLOW-UP 02/22/20142013 Overview: Isaias Slaughter is and lives in [place], [place]. At this time, we anticipate that the patient will be discharged home once clinically stable. Plan: - Discuss needs with patient. No needs identified - Collaborate with Case management to facilitate DC process - Discharge home today. Return to OPD in 7-10 days for postop follow up . 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 Shave biopsy 2 today. 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 No tubes/drains in place. Patient reports adequate pain control on oxycodone and percocet prn. PLAN: -Cont current regimen -Bowel regimen: colace 100 mg BID and bisacodyl supp daily prn . DVT prophylaxis 02/22/2014 10/04/2017 Overview: The pt is on Lovenox 40mg daily SC and SCD for VTE prophylaxis. No signs or symptoms of DVT/PE. The patient is at highrisk for VTE. Plan: - Continue Lovenox 40mg daily SC - SCD/LJ - Encourage continued ambulation . DISPOSITION AND FOLLOW-UP 02/22/20142013 Overview: Isaias Slaughter is and lives in [place], [place]. At this time, we anticipate that the patient will be discharged home once clinically stable. Plan: - Discuss needs with patient. No needs identified - Collaborate with Case management to facilitate DC process - Discharge home today. Return to OPD in 7-10 days for postop follow up . 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 Shave biopsy 2 today. 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 No tubes/drains in place. Patient reports adequate pain control on oxycodone and percocet prn. PLAN: -Cont current regimen -Bowel regimen: colace 100 mg BID and bisacodyl supp daily prn . DVT prophylaxis 02/22/2014 10/04/2017 Overview: The pt is on Lovenox 40mg daily SC and SCD for VTE prophylaxis. No signs or symptoms of DVT/PE. The patient is at highrisk for VTE. Plan: - Continue Lovenox 40mg daily SC - SCD/LJ - Encourage continued ambulation . DISPOSITION AND FOLLOW-UP 02/22/20142013 Overview: Isaias Slaughter is and lives in [place], [place]. At this time, we anticipate that the patient will be discharged home once clinically stable. Plan: - Discuss needs with patient. No needs identified - Collaborate with Case management to facilitate DC process - Discharge home today. Return to OPD in 7-10 days for postop follow up . 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 Shave biopsy 2 today. 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 No tubes/drains in place. Patient reports adequate pain control on oxycodone and percocet prn. PLAN: -Cont current regimen -Bowel regimen: colace 100 mg BID and bisacodyl supp daily prn . DVT prophylaxis 02/22/2014 10/04/2017 Overview: The pt is on Lovenox 40mg daily SC and SCD for VTE prophylaxis. No signs or symptoms of DVT/PE. The patient is at highrisk for VTE. Plan: - Continue Lovenox 40mg daily SC - SCD/LJ - Encourage continued ambulation . DISPOSITION AND FOLLOW-UP 02/22/20142013 Overview: Isaias Slaughter is and lives in [place], [place]. At this time, we anticipate that the patient will be discharged home once clinically stable. Plan: - Discuss needs with patient. No needs identified - Collaborate with Case management to facilitate DC process - Discharge home today. Return to [facility]PD in 7-10 days for postop follow up . 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 Shave biopsy 2 today. 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 No tubes/drains in place. Patient reports adequate pain control on oxycodone and percocet prn. PLAN: -Cont current regimen -Bowel regimen: colace 100 mg BID and bisacodyl supp daily prn . DVT prophylaxis 02/22/2014 10/04/2017 Overview: The pt is on Lovenox 40mg daily SC and SCD for VTE prophylaxis. No signs or symptoms of DVT/PE. The patient is at highrisk for VTE. Plan: - Continue Lovenox 40mg daily SC - SCD/LJ - Encourage continued ambulation . DISPOSITION AND FOLLOW-UP 02/22/2014 Overview: Isaias Slaughter is and lives in [place], [place]. At this time, we anticipate that the patient will be discharged home once clinically stable. Plan: - Discuss needs with patient. No needs identified - Collaborate with Case management to facilitate DC process - Discharge home today. Return to [facility]PD in 7-10 days for postop follow up . 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 Shave biopsy 2 today. 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 No tubes/drains in place. Patient reports adequate pain control on oxycodone and percocet prn. PLAN: -Cont current regimen -Bowel regimen: colace 100 mg BID and bisacodyl supp daily prn . DVT prophylaxis 02/22/2014 10/04/2017 Overview: The pt is on Lovenox 40mg daily SC and SCD for VTE prophylaxis. No signs or symptoms of DVT/PE. The patient is at highrisk for VTE. Plan: - Continue Lovenox 40mg daily SC - SCD/LJ - Encourage continued ambulation . DISPOSITION AND FOLLOW-UP 02/22/2014 Overview: Isaias Slaughter is and lives in [place], [place]. At this time, we anticipate that the patient will be discharged home once clinically stable. Plan: - Discuss needs with patient. No needs identified - Collaborate with Case management to facilitate DC process - Discharge home today. Return to [facility] in 7-10 days for postop follow up . 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 Shave biopsy 2 today. 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 No tubes/drains in place. Patient reports adequate pain control on oxycodone and percocet prn. PLAN: -Cont current regimen -Bowel regimen: colace 100 mg BID and bisacodyl supp daily prn . DVT prophylaxis 02/22/2014 10/04/2017 Overview: The pt is on Lovenox 40mg daily SC and SCD for VTE prophylaxis. No signs or symptoms of DVT/PE. The patient is at highrisk for VTE. Plan: - Continue Lovenox 40mg daily SC - SCD/LJ - Encourage continued ambulation . DISPOSITION AND FOLLOW-UP 02/22/2014 Overview: Isaias Slaughter is and lives in [place], [place]. At this time, we anticipate that the patient will be discharged home once clinically stable. Plan: - Discuss needs with patient. No needs identified - Collaborate with Case management to facilitate DC process - Discharge home today. Return to [facility]PD in 7-10 days for postop follow up . 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 Shave biopsy 2 today. 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 No tubes/drains in place. Patient reports adequate pain control on oxycodone and percocet prn. PLAN: -Cont current regimen -Bowel regimen: colace 100 mg BID and bisacodyl supp daily prn . DVT prophylaxis 02/22/2014 10/04/2017 Overview: The pt is on Lovenox 40mg daily SC and SCD for VTE prophylaxis. No signs or symptoms of DVT/PE. The patient is at highrisk for VTE. Plan: - Continue Lovenox 40mg daily SC - SCD/JL - Encourage continued ambulation . DISPOSITION AND FOLLOW-UP 02/22/2014 Overview: Isaias Slaughter is and lives in [place], [place]. At this time, we anticipate that the patient will be discharged home once clinically stable. Plan: - Discuss needs with patient. No needs identified - Collaborate with Case management to facilitate DC process - Discharge home today. Return to [facility]PD in 7-10 days for postop follow up . 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 Shave biopsy 2 today. 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 No tubes/drains in place. Patient reports adequate pain control on oxycodone and percocet prn. PLAN: -Cont current regimen -Bowel regimen: colace 100 mg BID and bisacodyl supp daily prn . DVT prophylaxis 02/22/2014 10/04/2017 Overview: The pt is on Lovenox 40mg daily SC and SCD for VTE prophylaxis. No signs or symptoms of DVT/PE. The patient is at highrisk for VTE. Plan: - Continue Lovenox 40mg daily SC - SCD/LJ - Encourage continued ambulation . DISPOSITION AND FOLLOW-UP 02/22/2014 Overview: Isaias Slaughter is and lives in [place], [place]. At this time, we anticipate that the patient will be discharged home once clinically stable. Plan: - Discuss needs with patient. No needs identified - Collaborate with Case management to facilitate DC process - Discharge home today. Return to [facility]PD in 7-10 days for postop follow up . 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 Shave biopsy 2 today. 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 No tubes/drains in place. Patient reports adequate pain control on oxycodone and percocet prn. PLAN: -Cont current regimen -Bowel regimen: colace 100 mg BID and bisacodyl supp daily prn . DVT prophylaxis 02/22/2014 10/04/2017 Overview: The pt is on Lovenox 40mg daily SC and SCD for VTE prophylaxis. No signs or symptoms of DVT/PE. The patient is at highrisk for VTE. Plan: - Continue Lovenox 40mg daily SC - SCD/LJ - Encourage continued ambulation . DISPOSITION AND FOLLOW-UP 02/22/2014 Overview: Isaias Slaughter is and lives in [place], [place]. At this time, we anticipate that the patient will be discharged home once clinically stable. Plan: - Discuss needs with patient. No needs identified - Collaborate with Case management to facilitate DC process - Discharge home today. Return to [facility]PD in 7-10 days for postop follow up . 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 Shave biopsy 2 today. 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 No tubes/drains in place. Patient reports adequate pain control on oxycodone and percocet prn. PLAN: -Cont current regimen -Bowel regimen: colace 100 mg BID and bisacodyl supp daily prn . DVT prophylaxis 02/22/2014 10/04/2017 Overview: The pt is on Lovenox 40mg daily SC and SCD for VTE prophylaxis. No signs or symptoms of DVT/PE. The patient is at highrisk for VTE. Plan: - Continue Lovenox 40mg daily SC - SCD/LJ - Encourage continued ambulation . DISPOSITION AND FOLLOW-UP 02/22/2014 Overview: Isaias Slaughter is and lives in [place], [place]. At this time, we anticipate that the patient will be discharged home once clinically stable. Plan: - Discuss needs with patient. No needs identified - Collaborate with Case management to facilitate DC process - Discharge home today. Return to [facility]PD in 7-10 days for postop follow up . 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 Shave biopsy 2 today. 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 No tubes/drains in place. Patient reports adequate pain control on oxycodone and percocet prn. PLAN: -Cont current regimen -Bowel regimen: colace 100 mg BID and bisacodyl supp daily prn . DVT prophylaxis 02/22/2014 10/04/2017 Overview: The pt is on Lovenox 40mg daily SC and SCD for VTE prophylaxis. No signs or symptoms of DVT/PE. The patient is at highrisk for VTE. Plan: - Continue Lovenox 40mg daily SC - SCD/LJ - Encourage continued ambulation . DISPOSITION AND FOLLOW-UP 02/22/2014 Overview: Isaias Slaughter is and lives in [place], [place]. At this time, we anticipate that the patient will be discharged home once clinically stable. Plan: - Discuss needs with patient. No needs identified - Collaborate with Case management to facilitate DC process - Discharge home today. Return to [facility]PD in 7-10 days for postop follow up . 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 Shave biopsy 2 today. 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 No tubes/drains in place. Patient reports adequate pain control on oxycodone and percocet prn. PLAN: -Cont current regimen -Bowel regimen: colace 100 mg BID and bisacodyl supp daily prn . DVT prophylaxis 02/22/2014 10/04/2017 Overview: The pt is on Lovenox 40mg daily SC and SCD for VTE prophylaxis. No signs or symptoms of DVT/PE. The patient is at highrisk for VTE. Plan: - Continue Lovenox 40mg daily SC - SCD/LJ - Encourage continued ambulation . DISPOSITION AND FOLLOW-UP 02/22/2014 Overview: Isaias Slaughter is and lives in [place], [place]. At this time, we anticipate that the patient will be discharged home once clinically stable. Plan: - Discuss needs with patient. No needs identified - Collaborate with Case management to facilitate DC process - Discharge home today. Return to [facility]PD in 7-10 days for postop follow up . 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 Shave biopsy 2 today. 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 No tubes/drains in place. Patient reports adequate pain control on oxycodone and percocet prn. PLAN: -Cont current regimen -Bowel regimen: colace 100 mg BID and bisacodyl supp daily prn . DVT prophylaxis 02/22/2014 10/04/2017 Overview: The pt is on Lovenox 40mg daily SC and SCD for VTE prophylaxis. No signs or symptoms of DVT/PE. The patient is at highrisk for VTE. Plan: - Continue Lovenox 40mg daily SC - SCD/LJ - Encourage continued ambulation . DISPOSITION AND FOLLOW-UP 02/22/2014 Overview: Isaias Slaughter is and lives in [place], [place]. At this time, we anticipate that the patient will be discharged home once clinically stable. Plan: - Discuss needs with patient. No needs identified - Collaborate with Case management to facilitate DC process - Discharge home today. Return to [facility]PD in 7-10 days for postop follow up . 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 Shave biopsy 2 today. 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 No tubes/drains in place. Patient reports adequate pain control on oxycodone and percocet prn. PLAN: -Cont current regimen -Bowel regimen: colace 100 mg BID and bisacodyl supp daily prn . DVT prophylaxis 02/22/2014 10/04/2017 Overview: The pt is on Lovenox 40mg daily SC and SCD for VTE prophylaxis. No signs or symptoms of DVT/PE. The patient is at highrisk for VTE. Plan: - Continue Lovenox 40mg daily SC - SCD/LJ - Encourage continued ambulation . DISPOSITION AND FOLLOW-UP 02/22/2014 Overview: Isaias Slaughter is and lives in [place], [place]. At this time, we anticipate that the patient will be discharged home once clinically stable. Plan: - Discuss needs with patient. No needs identified - Collaborate with Case management to facilitate DC process - Discharge home today. Return to [facility]PD in 7-10 days for postop follow up . 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 Shave biopsy 2 today. 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 No tubes/drains in place. Patient reports adequate pain control on oxycodone and percocet prn. PLAN: -Cont current regimen -Bowel regimen: colace 100 mg BID and bisacodyl supp daily prn . DVT prophylaxis 02/22/2014 10/04/2017 Overview: The pt is on Lovenox 40mg daily SC and SCD for VTE prophylaxis. No signs or symptoms of DVT/PE. The patient is at highrisk for VTE. Plan: - Continue Lovenox 40mg daily SC - SCD/LJ - Encourage continued ambulation . DISPOSITION AND FOLLOW-UP 02/22/2014 Overview: Isaias Slaughter is and lives in [place], [place]. At this time, we anticipate that the patient will be discharged home once clinically stable. Plan: - Discuss needs with patient. No needs identified - Collaborate with Case management to facilitate DC process - Discharge home today. Return to [facility]PD in 7-10 days for postop follow up . 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 Shave biopsy 2 today. 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 No tubes/drains in place. Patient reports adequate pain control on oxycodone and percocet prn. PLAN: -Cont current regimen -Bowel regimen: colace 100 mg BID and bisacodyl supp daily prn . DVT prophylaxis 02/22/2014 10/04/2017 Overview: The pt is on Lovenox 40mg daily SC and SCD for VTE prophylaxis. No signs or symptoms of DVT/PE. The patient is at highrisk for VTE. Plan: - Continue Lovenox 40mg daily SC - SCD/LJ - Encourage continued ambulation . DISPOSITION AND FOLLOW-UP 02/22/2014 Overview: Isaias Slaughter is and lives in [place], [place]. At this time, we anticipate that the patient will be discharged home once clinically stable. Plan: - Discuss needs with patient. No needs identified - Collaborate with Case management to facilitate DC process - Discharge home today. Return to [facility]PD in 7-10 days for postop follow up . 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 Shave biopsy 2 today. 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 No tubes/drains in place. Patient reports adequate pain control on oxycodone and percocet prn. PLAN: -Cont current regimen -Bowel regimen: colace 100 mg BID and bisacodyl supp daily prn . DVT prophylaxis 02/22/2014 10/04/2017 Overview: The pt is on Lovenox 40mg daily SC and SCD for VTE prophylaxis. No signs or symptoms of DVT/PE. The patient is at highrisk for VTE. Plan: - Continue Lovenox 40mg daily SC - SCD/LJ - Encourage continued ambulation . DISPOSITION AND FOLLOW-UP 02/22/2014 Overview: Isaias Slaughter is and lives in [place], [place]. At this time, we anticipate that the patient will be discharged home once clinically stable. Plan: - Discuss needs with patient. No needs identified - Collaborate with Case management to facilitate DC process - Discharge home today. Return to [facility]PD in 7-10 days for postop follow up . 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 Shave biopsy 2 today. 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 No tubes/drains in place. Patient reports adequate pain control on oxycodone and percocet prn. PLAN: -Cont current regimen -Bowel regimen: colace 100 mg BID and bisacodyl supp daily prn . DVT prophylaxis 02/22/2014 10/04/2017 Overview: The pt is on Lovenox 40mg daily SC and SCD for VTE prophylaxis. No signs or symptoms of DVT/PE. The patient is at highrisk for VTE. Plan: - Continue Lovenox 40mg daily SC - SCD/LJ - Encourage continued ambulation . DISPOSITION AND FOLLOW-UP 02/22/2014 Overview: Isaias Slaughter is and lives in [place], [place]. At this time, we anticipate that the patient will be discharged home once clinically stable. Plan: - Discuss needs with patient. No needs identified - Collaborate with Case management to facilitate DC process - Discharge home today. Return to [facility] in 7-10 days for postop follow up . 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 Shave biopsy 2 today. 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 No tubes/drains in place. Patient reports adequate pain control on oxycodone and percocet prn. PLAN: -Cont current regimen -Bowel regimen: colace 100 mg BID and bisacodyl supp daily prn . DVT prophylaxis 02/22/2014 10/04/2017 Overview: The pt is on Lovenox 40mg daily SC and SCD for VTE prophylaxis. No signs or symptoms of DVT/PE. The patient is at highrisk for VTE. Plan: - Continue Lovenox 40mg daily SC - SCD/LJ - Encourage continued ambulation . DISPOSITION AND FOLLOW-UP 02/22/2014 Overview: Isaias Slaughter is and lives in [place], [place]. At this time, we anticipate that the patient will be discharged home once clinically stable. Plan: - Discuss needs with patient. No needs identified - Collaborate with Case management to facilitate DC process - Discharge home today. Return to [facility] in 7-10 days for postop follow up . 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 Shave biopsy 2 today. 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 No tubes/drains in place. Patient reports adequate pain control on oxycodone and percocet prn. PLAN: -Cont current regimen -Bowel regimen: colace 100 mg BID and bisacodyl supp daily prn . DVT prophylaxis 02/22/2014 10/04/2017 Overview: The pt is on Lovenox 40mg daily SC and SCD for VTE prophylaxis. No signs or symptoms of DVT/PE. The patient is at highrisk for VTE. Plan: - Continue Lovenox 40mg daily SC - SCD/LJ - Encourage continued ambulation . DISPOSITION AND FOLLOW-UP 02/22/2014 Overview: Isaias Slaughter is and lives in [place], [place]. At this time, we anticipate that the patient will be discharged home once clinically stable. Plan: - Discuss needs with patient. No needs identified - Collaborate with Case management to facilitate DC process - Discharge home today. Return to [facility]PD in 7-10 days for postop follow up . 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 Shave biopsy 2 today. 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 No tubes/drains in place. Patient reports adequate pain control on oxycodone and percocet prn. PLAN: -Cont current regimen -Bowel regimen: colace 100 mg BID and bisacodyl supp daily prn . DVT prophylaxis 02/22/2014 10/04/2017 Overview: The pt is on Lovenox 40mg daily SC and SCD for VTE prophylaxis. No signs or symptoms of DVT/PE. The patient is at highrisk for VTE. Plan: - Continue Lovenox 40mg daily SC - SCD/LJ - Encourage continued ambulation . DISPOSITION AND FOLLOW-UP 02/22/2014 Overview: Isaias Slaughter is and lives in [place], [place]. At this time, we anticipate that the patient will be discharged home once clinically stable. Plan: - Discuss needs with patient. No needs identified - Collaborate with Case management to facilitate DC process - Discharge home today. Return to OPD in 7-10 days for postop follow up . 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 Shave biopsy 2 today. 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 No tubes/drains in place. Patient reports adequate pain control on oxycodone and percocet prn. PLAN: -Cont current regimen -Bowel regimen: colace 100 mg BID and bisacodyl supp daily prn . DVT prophylaxis 02/22/2014 10/04/2017 Overview: The pt is on Lovenox 40mg daily SC and SCD for VTE prophylaxis. No signs or symptoms of DVT/PE. The patient is at highrisk for VTE. Plan: - Continue Lovenox 40mg daily SC - SCD/LJ - Encourage continued ambulation . DISPOSITION AND FOLLOW-UP 02/22/2014 Overview: Isaias Slaughter is and lives in [place], [place]. At this time, we anticipate that the patient will be discharged home once clinically stable. Plan: - Discuss needs with patient. No needs identified - Collaborate with Case management to facilitate DC process - Discharge home today. Return to [facility]PD in 7-10 days for postop follow up . 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 Shave biopsy 2 today. 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 No tubes/drains in place. Patient reports adequate pain control on oxycodone and percocet prn. PLAN: -Cont current regimen -Bowel regimen: colace 100 mg BID and bisacodyl supp daily prn . DVT prophylaxis 02/22/2014 10/04/2017 Overview: The pt is on Lovenox 40mg daily SC and SCD for VTE prophylaxis. No signs or symptoms of DVT/PE. The patient is at highrisk for VTE. Plan: - Continue Lovenox 40mg daily SC - SCD/LJ - Encourage continued ambulation . DISPOSITION AND FOLLOW-UP 02/22/2014 Overview: Isaias Slaughter is and lives in [place], [place]. At this time, we anticipate that the patient will be discharged home once clinically stable. Plan: - Discuss needs with patient. No needs identified - Collaborate with Case management to facilitate DC process - Discharge home today. Return to OPD in 7-10 days for postop follow up . 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 Shave biopsy 2 today. 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 No tubes/drains in place. Patient reports adequate pain control on oxycodone and percocet prn. PLAN: -Cont current regimen -Bowel regimen: colace 100 mg BID and bisacodyl supp daily prn . DVT prophylaxis 02/22/2014 10/04/2017 Overview: The pt is on Lovenox 40mg daily SC and SCD for VTE prophylaxis. No signs or symptoms of DVT/PE. The patient is at highrisk for VTE. Plan: - Continue Lovenox 40mg daily SC - SCD/LJ - Encourage continued ambulation . DISPOSITION AND FOLLOW-UP 02/22/2014 Overview: Isaias Slaughter is and lives in [place], [place]. At this time, we anticipate that the patient will be discharged home once clinically stable. Plan: - Discuss needs with patient. No needs identified - Collaborate with Case management to facilitate DC process - Discharge home today. Return to OPD in 7-10 days for postop follow up . 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 Shave biopsy 2 today. 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 No tubes/drains in place. Patient reports adequate pain control on oxycodone and percocet prn. PLAN: -Cont current regimen -Bowel regimen: colace 100 mg BID and bisacodyl supp daily prn . DVT prophylaxis 02/22/2014 10/04/2017 Overview: The pt is on Lovenox 40mg daily SC and SCD for VTE prophylaxis. No signs or symptoms of DVT/PE. The patient is at highrisk for VTE. Plan: - Continue Lovenox 40mg daily SC - SCD/LJ - Encourage continued ambulation . DISPOSITION AND FOLLOW-UP 02/22/2014 Overview: Isaias Slaughter is and lives in [place], [place]. At this time, we anticipate that the patient will be discharged home once clinically stable. Plan: - Discuss needs with patient. No needs identified - Collaborate with Case management to facilitate DC process - Discharge home today. Return to OPD in 7-10 days for postop follow up . 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 Shave biopsy 2 today. 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 No tubes/drains in place. Patient reports adequate pain control on oxycodone and percocet prn. PLAN: -Cont current regimen -Bowel regimen: colace 100 mg BID and bisacodyl supp daily prn . DVT prophylaxis 02/22/2014 10/04/2017 Overview: The pt is on Lovenox 40mg daily SC and SCD for VTE prophylaxis. No signs or symptoms of DVT/PE. The patient is at highrisk for VTE. Plan: - Continue Lovenox 40mg daily SC - SCD/LJ - Encourage continued ambulation . DISPOSITION AND FOLLOW-UP 02/22/2014 Overview: Isaias Slaughter is and lives in [place], [place]. At this time, we anticipate that the patient will be discharged home once clinically stable. Plan: - Discuss needs with patient. No needs identified - Collaborate with Case management to facilitate DC process - Discharge home today. Return to OPD in 7-10 days for postop follow up . 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 Shave biopsy 2 today. 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 No tubes/drains in place. Patient reports adequate pain control on oxycodone and percocet prn. PLAN: -Cont current regimen -Bowel regimen: colace 100 mg BID and bisacodyl supp daily prn . DVT prophylaxis 02/22/2014 10/04/2017 Overview: The pt is on Lovenox 40mg daily SC and SCD for VTE prophylaxis. No signs or symptoms of DVT/PE. The patient is at highrisk for VTE. Plan: - Continue Lovenox 40mg daily SC - SCD/LJ - Encourage continued ambulation . DISPOSITION AND FOLLOW-UP 02/22/2014 Overview: Isaias Slaughter is and lives in [place], [place]. At this time, we anticipate that the patient will be discharged home once clinically stable. Plan: - Discuss needs with patient. No needs identified - Collaborate with Case management to facilitate DC process - Discharge home today. Return to [facility]PD in 7-10 days for postop follow up . 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 Shave biopsy 2 today. 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 No tubes/drains in place. Patient reports adequate pain control on oxycodone and percocet prn. PLAN: -Cont current regimen -Bowel regimen: colace 100 mg BID and bisacodyl supp daily prn . DVT prophylaxis 02/22/2014 10/04/2017 Overview: The pt is on Lovenox 40mg daily SC and SCD for VTE prophylaxis. No signs or symptoms of DVT/PE. The patient is at highrisk for VTE. Plan: - Continue Lovenox 40mg daily SC - SCD/LJ - Encourage continued ambulation . DISPOSITION AND FOLLOW-UP 02/22/2014 Overview: Isaias Slaughter is and lives in [place], [place]. At this time, we anticipate that the patient will be discharged home once clinically stable. Plan: - Discuss needs with patient. No needs identified - Collaborate with Case management to facilitate DC process - Discharge home today. Return to [facility]PD in 7-10 days for postop follow up . 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 Shave biopsy 2 today. 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 No tubes/drains in place. Patient reports adequate pain control on oxycodone and percocet prn. PLAN: -Cont current regimen -Bowel regimen: colace 100 mg BID and bisacodyl supp daily prn . DVT prophylaxis 02/22/2014 10/04/2017 Overview: The pt is on Lovenox 40mg daily SC and SCD for VTE prophylaxis. No signs or symptoms of DVT/PE. The patient is at highrisk for VTE. Plan: - Continue Lovenox 40mg daily SC - SCD/LJ - Encourage continued ambulation . DISPOSITION AND FOLLOW-UP 02/22/2014 Overview: Isaias Slaughter is and lives in [place], [place]. At this time, we anticipate that the patient will be discharged home once clinically stable. Plan: - Discuss needs with patient. No needs identified - Collaborate with Case management to facilitate DC process - Discharge home today. Return to [facility]PD in 7-10 days for postop follow up . 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 Shave biopsy 2 today. 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 No tubes/drains in place. Patient reports adequate pain control on oxycodone and percocet prn. PLAN: -Cont current regimen -Bowel regimen: colace 100 mg BID and bisacodyl supp daily prn . DVT prophylaxis 02/22/2014 10/04/2017 Overview: The pt is on Lovenox 40mg daily SC and SCD for VTE prophylaxis. No signs or symptoms of DVT/PE. The patient is at highrisk for VTE. Plan: - Continue Lovenox 40mg daily SC - SCD/LJ - Encourage continued ambulation . DISPOSITION AND FOLLOW-UP 02/22/2014 Overview: Isaias Slaughter is and lives in [place], [place]. At this time, we anticipate that the patient will be discharged home once clinically stable. Plan: - Discuss needs with patient. No needs identified - Collaborate with Case management to facilitate DC process - Discharge home today. Return to [facility]PD in 7-10 days for postop follow up . 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 Shave biopsy 2 today. 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 No tubes/drains in place. Patient reports adequate pain control on oxycodone and percocet prn. PLAN: -Cont current regimen -Bowel regimen: colace 100 mg BID and bisacodyl supp daily prn . DVT prophylaxis 02/22/2014 10/04/2017 Overview: The pt is on Lovenox 40mg daily SC and SCD for VTE prophylaxis. No signs or symptoms of DVT/PE. The patient is at highrisk for VTE. Plan: - Continue Lovenox 40mg daily SC - SCD/LJ - Encourage continued ambulation . DISPOSITION AND FOLLOW-UP 02/22/2014 Overview: Isaias Slaughter is and lives in [place], [place]. At this time, we anticipate that the patient will be discharged home once clinically stable. Plan: - Discuss needs with patient. No needs identified - Collaborate with Case management to facilitate DC process - Discharge home today. Return to [facility]PD in 7-10 days for postop follow up . 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 Shave biopsy 2 today. 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 No tubes/drains in place. Patient reports adequate pain control on oxycodone and percocet prn. PLAN: -Cont current regimen -Bowel regimen: colace 100 mg BID and bisacodyl supp daily prn . DVT prophylaxis 02/22/2014 10/04/2017 Overview: The pt is on Lovenox 40mg daily SC and SCD for VTE prophylaxis. No signs or symptoms of DVT/PE. The patient is at highrisk for VTE. Plan: - Continue Lovenox 40mg daily SC - SCD/LJ - Encourage continued ambulation . DISPOSITION AND FOLLOW-UP 02/22/2014 Overview: Isaias Slaughter is and lives in [place], [place]. At this time, we anticipate that the patient will be discharged home once clinically stable. Plan: - Discuss needs with patient. No needs identified - Collaborate with Case management to facilitate DC process - Discharge home today. Return to [facility]PD in 7-10 days for postop follow up . 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 Shave biopsy 2 today. 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 No tubes/drains in place. Patient reports adequate pain control on oxycodone and percocet prn. PLAN: -Cont current regimen -Bowel regimen: colace 100 mg BID and bisacodyl supp daily prn . DVT prophylaxis 02/22/2014 10/04/2017 Overview: The pt is on Lovenox 40mg daily SC and SCD for VTE prophylaxis. No signs or symptoms of DVT/PE. The patient is at highrisk for VTE. Plan: - Continue Lovenox 40mg daily SC - SCD/LJ - Encourage continued ambulation . DISPOSITION AND FOLLOW-UP 02/22/2014 Overview: Isaias Slaughter is and lives in [place], [place]. At this time, we anticipate that the patient will be discharged home once clinically stable. Plan: - Discuss needs with patient. No needs identified - Collaborate with Case management to facilitate DC process - Discharge home today. Return to [facility]PD in 7-10 days for postop follow up . 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 Prostate cancer (HCC) Malignant neoplasm of prostate documented in this [facility] Prostate cancer (HCC)- Primary Malignant neoplasm of prostate Malignant neoplasm of urinary bladder, unspecified site (HCC) Carcinoma of right lung (HCC) [facility] Malignant neoplasm of urinary bladder, unspecified site (HCC)- Primary 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 and other lower urinary tract symptoms (LUTS) Malignant neoplasm of urinary bladder, unspecified site (HCC) [facility] Diagnosis Malignant neoplasm of urinary bladder, unspecified site (HCC)- Primary Malignant neoplasm of urinary bladder, unspecified site (HCC) [facility] Balance disorder- Primary Other symptoms involving nervous and musculoskeletal systems Gait abnormality Abnormality of gait Physical debility Debility, unspecified Malignant neoplasm of right ureter (HCC) Malignant neoplasm of ureter [facility] Diagnosis 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 Malignant neoplasm of ureter Malignant neoplasm of right ureter (HCC) Malignant neoplasm of ureter [facility] Diagnosis 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 Prostate cancer (HCC) Malignant neoplasm of prostate Malignant neoplasm of right ureter (HCC) Malignant neoplasm of ureter [facility] Diagnosis Malignant neoplasm of urinary bladder, unspecified site (HCC)- Primary 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 and other lower urinary tract symptoms (LUTS) History of prostate cancer Personal history of malignant neoplasm of prostate Malignant neoplasm of right ureter (HCC) Malignant neoplasm of ureter [facility] Diagnosis Anxiety in acute stress reaction- Primary Predominant disturbance of emotions [facility] Diagnosis Hypokalemia Hypopotassemia [facility] Diagnosis Malignant neoplasm of prostate (HCC) Malignant neoplasm of prostate [facility] Diagnosis Malignant neoplasm of prostate (HCC) Malignant neoplasm of prostate 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) Malignant neoplasm of ureter [facility] Diagnosis 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 Prostate cancer (HCC) Malignant neoplasm of prostate Malignant neoplasm of right ureter (HCC) Malignant neoplasm of ureter Carcinoma of right lung (HCC) [facility] Diagnosis Essential hypertension Unspecified essential hypertension Malignant neoplasm of urinary bladder, unspecified site (HCC) Ureteral cancer, 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[facility] Diagnosis Hypokalemia Hypopotassemia Malignant neoplasm of urinary bladder, unspecified site (HCC) Ureteral cancer, 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[facility] Diagnosis 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 Malignant neoplasm of ureter Malignant neoplasm of urinary bladder, unspecified site (HCC) Ureteral cancer, 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[facility] Diagnosis Malignant neoplasm of urinary bladder, unspecified site (HCC)- Primary Malignant neoplasm of urinary bladder, unspecified site (HCC) Ureteral cancer, 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[facility]* Diagnosis Preop examination [Z01.818 (ICD-10-CM)]- Primary Preoperative examination, unspecified Primary hypertension [I10 (ICD-10-CM)] Unspecified essential hypertension Malignant neoplasm of urinary bladder, unspecified site (HCC) [C67.9 (ICD-10-CM)] Mixed hyperlipidemia [E78.2 (ICD-10-CM)] Mixed hyperlipidemia Coronary artery disease involving [place] coronary artery of [place] heart without angina pectoris [I25.10 (ICD-10-CM)] Malignant neoplasm of urinary bladder, unspecified site (HCC) Ureteral cancer, 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[facility]* Diagnosis Onset Date Resolution Status Dyspnea on exertion acute Preoperative cardiovascular examination acute Atherosclerotic heart diseas e of [place] coronary artery without angina pectoris chronic Essential hypertension chron ic Stented coronary artery September 12, 2013 [facility] Work Phone: Evaluation note* Diagnosis Malignant neoplasm of prostate (HCC) Malignant neoplasm of prostate Ureteral cancer, 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[facility]* Diagnosis 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 Prostate cancer (HCC) Malignant neoplasm of prostate Ureteral cancer, 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[facility]* Diagnosis Carcinoma of right lung (HCC)- Primary Malignant neoplasm of right ureter (HCC) Malignant neoplasm of ureter Malignant neoplasm of prostate (HCC) Malignant neoplasm of prostate 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) [facility] Diagnosis 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 Prostate cancer (HCC) Malignant neoplasm of prostate [facility] Diagnosis Hydronephrosis with ureteral stricture, 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 Prostate cancer (HCC) Malignant neoplasm of prostate 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) Malignant neoplasm of dome of urinary bladder Malignant neoplasm of right ureter (HCC) Malignant neoplasm of ureter [facility] Diagnosis Prostate cancer (HCC)- Primary Malignant neoplasm of prostate 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) Malignant neoplasm of dome of urinary bladder Malignant neoplasm of right ureter (HCC) Malignant neoplasm of ureter [facility] Diagnosis Hydronephrosis with ureteral stricture, 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 [facility] Diagnosis Screening for genitourinary condition Screening for other and unspecified genitourinary condition [facility] Diagnosis 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)- Primary Malignant neoplasm of dome of urinary bladder Prostate cancer (HCC) Malignant neoplasm of prostate [facility] Diagnosis Hydronephrosis with ureteral stricture, 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) Malignant neoplasm of ureter [facility] Diagnosis Urothelial carcinoma (HCC)- Primary Other malignant neoplasm without specification of site Urothelial carcinoma (HCC) Other malignant neoplasm without specification of site [facility] Diagnosis Screening for genitourinary condition Screening for other and unspecified genitourinary condition Urothelial carcinoma (HCC) Other malignant neoplasm without specification of site [facility] Diagnosis Coronary artery disease involving [place] coronary artery of [place] heart without angina pectoris Carcinoma of right lung (HCC) Essential hypertension Unspecified essential hypertension Prostate cancer (HCC) Malignant neoplasm of prostate Urothelial carcinoma (HCC) Other malignant neoplasm without specification of site [facility] Diagnosis 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)- Primary Malignant neoplasm of dome of urinary bladder Prostate cancer (HCC) Malignant neoplasm of prostate Urothelial carcinoma (HCC) Other malignant neoplasm without specification of site [facility] Diagnosis 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 Prostate cancer (HCC) Malignant neoplasm of prostate Urothelial carcinoma (HCC) Other malignant neoplasm without specification of site [facility] Diagnosis Prostate cancer (HCC)- Primary Malignant neoplasm of prostate 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) Malignant neoplasm of urinary bladder, unspecified site (HCC) Malignant neoplasm of right ureter (HCC) Malignant neoplasm of ureter Malignant 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 (HCC) Thrombocytosis Essential thrombocythemia Urothelial carcinoma (HCC) Other malignant neoplasm without specification of site [facility] Diagnosis Hypokalemia Hypopotassemia [facility] Diagnosis 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 Prostate cancer (HCC) Malignant neoplasm of prostate [facility] Diagnosis 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 Prostate cancer (HCC) Malignant neoplasm of prostate 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) [facility] Diagnosis Unsteady gait- Primary Abnormality of gait Frequent falls Personal history of fall Prostate cancer (HCC) Malignant neoplasm of prostate 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) B12 deficiency Other B-complex deficiencies [facility] Diagnosis Unsteady gait- Primary Abnormality of gait [facility] Diagnosis Unsteady gait- Primary Abnormality of gait [facility] Diagnosis Hydronephrosis with ureteral stricture, not elsewhere classified [facility] Diagnosis Essential thrombocytosis (HCC) Essential thrombocythemia Prostate cancer (HCC) Malignant neoplasm of prostate 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) [facility] Diagnosis Unsteady gait- Primary Abnormality of gait [facility] Diagnosis Essential hypertension Unspecified essential hypertension [facility] Diagnosis 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 Prostate cancer (HCC) Malignant neoplasm of prostate [facility] Diagnosis Prostate cancer (HCC)- Primary Malignant neoplasm of prostate Essential thrombocytosis (HCC) Essential thrombocythemia Malignant neoplasm of prostate (HCC) Malignant neoplasm of prostate [facility] Diagnosis Prostate cancer (HCC)- Primary Malignant neoplasm of prostate 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) Secondary malignant neoplasm of bone and bone marrow [facility] Diagnosis Prostate cancer (HCC)- Primary Malignant neoplasm of prostate Essential thrombocytosis (HCC) Essential thrombocythemia Encounter for follow-up surveillance of bladder cancer Unspecified follow-up examination Encounter for follow-up surveillance of lung cancer Unspecified follow-up examination [facility] Diagnosis Prostate cancer (HCC) Malignant neoplasm of prostate 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) Secondary malignant neoplasm of bone and bone marrow [facility] Diagnosis Prostate cancer (HCC)- Primary Malignant neoplasm of prostate 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) [facility] Diagnosis Prostate cancer (HCC)- Primary Malignant neoplasm of prostate 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) [facility] Diagnosis Prostate cancer (HCC)- Primary Malignant neoplasm of prostate Essential thrombocytosis (HCC) Essential thrombocythemia Hx of bladder cancer Personal history of malignant neoplasm of bladder Hx of cancer of lung Personal history of malignant neoplasm of bronchus and lung [facility] Diagnosis AK (actinic keratosis)- Primary Actinic keratosis History of basal cell carcinoma Personal history of other malignant neoplasm of skin Other seborrheic keratosis Neoplasm of uncertain behavior of skin Actinic keratosis- Primary 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 Carcinoma of lung, 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Malignant neoplasm of prostate (HCC) Malignant neoplasm of prostate Radiation cystitis Irradiation cystitis Unilateral inguinal hernia without obstruction or gangrene, recurrence not specified Malignant neoplasm of prostate (HCC) Malignant neoplasm of prostate Malignant neoplasm of urinary bladder, unspecified site (HCC) Malignant 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 (HCC) Mixed hyperlipidemia Essential hypertension Unspecified essential hypertension Prediabetes Other abnormal glucose AK (actinic keratosis) Actinic keratosis Coronary artery disease involving [place] coronary artery of [place] heart without angina pectoris Carcinoma of right lung (HCC) Essential hypertension Unspecified essential hypertension Prostate cancer (HCC) Malignant neoplasm of prostate Hypokalemia Hypopotassemia [facility] Diagnosis AK (actinic keratosis)- Primary Actinic keratosis History of basal cell carcinoma Personal history of other malignant neoplasm of skin Other seborrheic keratosis Neoplasm of uncertain behavior of skin Actinic keratosis- Primary 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 Carcinoma of lung, 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Malignant neoplasm of prostate (HCC) Malignant neoplasm of prostate Radiation cystitis Irradiation cystitis Unilateral inguinal hernia without obstruction or gangrene, recurrence not specified Malignant neoplasm of prostate (HCC) Malignant neoplasm of prostate Malignant neoplasm of urinary bladder, unspecified site (HCC) Malignant 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 (HCC) Mixed hyperlipidemia Essential hypertension Unspecified essential hypertension Prediabetes Other abnormal glucose AK (actinic keratosis) Actinic keratosis Coronary artery disease involving [place] coronary artery of [place] heart without angina pectoris Carcinoma of right lung (HCC) Essential hypertension Unspecified essential hypertension Prostate cancer (HCC) Malignant neoplasm of prostate Prostate cancer (HCC)- Primary Malignant neoplasm of prostate 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) [facility] Diagnosis AK (actinic keratosis)- Primary Actinic keratosis History of basal cell carcinoma Personal history of other malignant neoplasm of skin Other seborrheic keratosis Neoplasm of uncertain behavior of skin Actinic keratosis- Primary 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 Carcinoma of lung, 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Malignant neoplasm of prostate (HCC) Malignant neoplasm of prostate Radiation cystitis Irradiation cystitis Unilateral inguinal hernia without obstruction or gangrene, recurrence not specified Malignant neoplasm of prostate (HCC) Malignant neoplasm of prostate Malignant neoplasm of urinary bladder, unspecified site (HCC) Malignant 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 (HCC) Mixed hyperlipidemia Essential hypertension Unspecified essential hypertension Prediabetes Other abnormal glucose AK (actinic keratosis) Actinic keratosis Coronary artery disease involving [place] coronary artery of [place] heart without angina pectoris Carcinoma of right lung (HCC) Essential hypertension Unspecified essential hypertension Prostate cancer (HCC) Malignant neoplasm of prostate Prostate cancer (HCC)- Primary Malignant neoplasm of prostate Skin lesion Unspecified disorder of skin and subcutaneous tissue Encounter for follow-up surveillance of lung cancer Unspecified follow-up examination [facility] Diagnosis AK (actinic keratosis)- Primary Actinic keratosis History of basal cell carcinoma Personal history of other malignant neoplasm of skin Other seborrheic keratosis Neoplasm of uncertain behavior of skin Actinic keratosis- Primary 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 Carcinoma of lung, 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Malignant neoplasm of prostate (HCC) Malignant neoplasm of prostate Radiation cystitis Irradiation cystitis Unilateral inguinal hernia without obstruction or gangrene, recurrence not specified Malignant neoplasm of prostate (HCC) Malignant neoplasm of prostate Malignant neoplasm of urinary bladder, unspecified site (HCC) Malignant 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 (HCC) Mixed hyperlipidemia Essential hypertension Unspecified essential hypertension Prediabetes Other abnormal glucose AK (actinic keratosis) Actinic keratosis Coronary artery disease involving [place] coronary artery of [place] heart without angina pectoris Carcinoma of right lung (HCC) Essential hypertension Unspecified essential hypertension Prostate cancer (HCC) Malignant neoplasm of prostate Essential hypertension Unspecified essential hypertension [facility] Diagnosis AK (actinic keratosis)- Primary Actinic keratosis History of basal cell carcinoma Personal history of other malignant neoplasm of skin Other seborrheic keratosis Neoplasm of uncertain behavior of skin Actinic keratosis- Primary 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 Carcinoma of lung, 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Malignant neoplasm of prostate (HCC) Malignant neoplasm of prostate Radiation cystitis Irradiation cystitis Unilateral inguinal hernia without obstruction or gangrene, recurrence not specified Malignant neoplasm of prostate (HCC) Malignant neoplasm of prostate Malignant neoplasm of urinary bladder, unspecified site (HCC) Malignant 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 (HCC) Mixed hyperlipidemia Essential hypertension Unspecified essential hypertension Prediabetes Other abnormal glucose AK (actinic keratosis) Actinic keratosis Coronary artery disease involving [place] coronary artery of [place] heart without angina pectoris Carcinoma of right lung (HCC) Essential hypertension Unspecified essential hypertension Prostate cancer (HCC) Malignant neoplasm of prostate 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) Stage 3a chronic kidney disease (HCC) Depression, unspecified depression type Essential hypertension Unspecified essential hypertension [facility] Diagnosis AK (actinic keratosis)- Primary Actinic keratosis History of basal cell carcinoma Personal history of other malignant neoplasm of skin Other seborrheic keratosis Neoplasm of uncertain behavior of skin Actinic keratosis- Primary 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 Carcinoma of lung, 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Malignant neoplasm of prostate (HCC) Malignant neoplasm of prostate Radiation cystitis Irradiation cystitis Unilateral inguinal hernia without obstruction or gangrene, recurrence not specified Malignant neoplasm of prostate (HCC) Malignant neoplasm of prostate Malignant neoplasm of urinary bladder, unspecified site (HCC) Malignant 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 (HCC) Mixed hyperlipidemia Essential hypertension Unspecified essential hypertension Prediabetes Other abnormal glucose AK (actinic keratosis) Actinic keratosis Coronary artery disease involving [place] coronary artery of [place] heart without angina pectoris Carcinoma of right lung (HCC) Essential hypertension Unspecified essential hypertension Prostate cancer (HCC) Malignant neoplasm of prostate Prostate cancer (HCC)- Primary Malignant neoplasm of prostate 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) Essential thrombocythemia Hx of cancer of lung Personal history of malignant neoplasm of bronchus and lung [facility] Diagnosis AK (actinic keratosis)- Primary Actinic keratosis History of basal cell carcinoma Personal history of other malignant neoplasm of skin Other seborrheic keratosis Neoplasm of uncertain behavior of skin Actinic keratosis- Primary 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 Carcinoma of lung, 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Malignant neoplasm of prostate (HCC) Malignant neoplasm of prostate Radiation cystitis Irradiation cystitis Unilateral inguinal hernia without obstruction or gangrene, recurrence not specified Malignant neoplasm of prostate (HCC) Malignant neoplasm of prostate Malignant neoplasm of urinary bladder, unspecified site (HCC) Malignant 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 (HCC) Mixed hyperlipidemia Essential hypertension Unspecified essential hypertension Prediabetes Other abnormal glucose AK (actinic keratosis) Actinic keratosis Coronary artery disease involving [place] coronary artery of [place] heart without angina pectoris Carcinoma of right lung (HCC) Essential hypertension Unspecified essential hypertension Prostate cancer (HCC) Malignant neoplasm of prostate Encounter for follow-up surveillance of lung cancer Unspecified follow-up examination [facility] Diagnosis AK (actinic keratosis)- Primary Actinic keratosis History of basal cell carcinoma Personal history of other malignant neoplasm of skin Other seborrheic keratosis Neoplasm of uncertain behavior of skin Actinic keratosis- Primary 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 Carcinoma of lung, 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Malignant neoplasm of prostate (HCC) Malignant neoplasm of prostate Radiation cystitis Irradiation cystitis Unilateral inguinal hernia without obstruction or gangrene, recurrence not specified Malignant neoplasm of prostate (HCC) Malignant neoplasm of prostate Malignant neoplasm of urinary bladder, unspecified site (HCC) Malignant 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 (HCC) Mixed hyperlipidemia Essential hypertension Unspecified essential hypertension Prediabetes Other abnormal glucose AK (actinic keratosis) Actinic keratosis Coronary artery disease involving [place] coronary artery of [place] heart without angina pectoris Carcinoma of right lung (HCC) Essential hypertension Unspecified essential hypertension Prostate cancer (HCC) Malignant neoplasm of prostate Essential hypertension Unspecified essential hypertension [facility] Diagnosis AK (actinic keratosis)- Primary Actinic keratosis History of basal cell carcinoma Personal history of other malignant neoplasm of skin Other seborrheic keratosis Neoplasm of uncertain behavior of skin Actinic keratosis- Primary 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 Carcinoma of lung, 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Malignant neoplasm of prostate (HCC) Malignant neoplasm of prostate Radiation cystitis Irradiation cystitis Unilateral inguinal hernia without obstruction or gangrene, recurrence not specified Malignant neoplasm of prostate (HCC) Malignant neoplasm of prostate Malignant neoplasm of urinary bladder, unspecified site (HCC) Malignant 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 (HCC) Mixed hyperlipidemia Essential hypertension Unspecified essential hypertension Prediabetes Other abnormal glucose AK (actinic keratosis) Actinic keratosis Coronary artery disease involving [place] coronary artery of [place] heart without angina pectoris Carcinoma of right lung (HCC) Essential hypertension Unspecified essential hypertension Prostate cancer (HCC) Malignant neoplasm of prostate Hypokalemia Hypopotassemia [facility] (actinic keratosis)- Primary Actinic keratosis History of basal cell carcinoma Personal history of other malignant neoplasm of skin Other seborrheic keratosis Neoplasm of uncertain behavior of skin Actinic keratosis- Primary 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 Carcinoma of lung, 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Malignant neoplasm of prostate (HCC) Malignant neoplasm of prostate Radiation cystitis Irradiation cystitis Unilateral inguinal hernia without obstruction or gangrene, recurrence not specified Malignant neoplasm of prostate (HCC) Malignant neoplasm of prostate Malignant neoplasm of urinary bladder, unspecified site (HCC) Malignant 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 (HCC) Mixed hyperlipidemia Essential hypertension Unspecified essential hypertension Prediabetes Other abnormal glucose AK (actinic keratosis) Actinic keratosis Coronary artery disease involving [place] coronary artery of [place] heart without angina pectoris Carcinoma of right lung (HCC) Essential hypertension Unspecified essential hypertension Prostate cancer (HCC) Malignant neoplasm of prostate Prostate cancer (HCC)- Primary Malignant neoplasm of prostate 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) [facility] Diagnosis AK (actinic keratosis)- Primary Actinic keratosis History of basal cell carcinoma Personal history of other malignant neoplasm of skin Other seborrheic keratosis Neoplasm of uncertain behavior of skin Actinic keratosis- Primary 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 Carcinoma of lung, 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Malignant neoplasm of prostate (HCC) Malignant neoplasm of prostate Radiation cystitis Irradiation cystitis Unilateral inguinal hernia without obstruction or gangrene, recurrence not specified Malignant neoplasm of prostate (HCC) Malignant neoplasm of prostate Malignant neoplasm of urinary bladder, unspecified site (HCC) Malignant 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 (HCC) Mixed hyperlipidemia Essential hypertension Unspecified essential hypertension Prediabetes Other abnormal glucose AK (actinic keratosis) Actinic keratosis Coronary artery disease involving [place] coronary artery of [place] heart without angina pectoris Carcinoma of right lung (HCC) Essential hypertension Unspecified essential hypertension Prostate cancer (HCC) Malignant neoplasm of prostate Prostate cancer (HCC)- Primary Malignant neoplasm of prostate Skin lesion Unspecified disorder of skin and subcutaneous tissue Hx of cancer of lung Personal history of malignant neoplasm of bronchus and lung [facility] Diagnosis AK (actinic keratosis)- Primary Actinic keratosis History of basal cell carcinoma Personal history of other malignant neoplasm of skin Other seborrheic keratosis Neoplasm of uncertain behavior of skin Actinic keratosis- Primary 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 Carcinoma of lung, 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Malignant neoplasm of prostate (HCC) Malignant neoplasm of prostate Radiation cystitis Irradiation cystitis Unilateral inguinal hernia without obstruction or gangrene, recurrence not specified Malignant neoplasm of prostate (HCC) Malignant neoplasm of prostate Malignant neoplasm of urinary bladder, unspecified site (HCC) Malignant 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 (HCC) Mixed hyperlipidemia Essential hypertension Unspecified essential hypertension Prediabetes Other abnormal glucose AK (actinic keratosis) Actinic keratosis Coronary artery disease involving [place] coronary artery of [place] heart without angina pectoris Carcinoma of right lung (HCC) Essential hypertension Unspecified essential hypertension Prostate cancer (HCC) Malignant neoplasm of prostate HLD (hyperlipidemia) Other and unspecified hyperlipidemia [facility] Diagnosis AK (actinic keratosis)- Primary Actinic keratosis History of basal cell carcinoma Personal history of other malignant neoplasm of skin Other seborrheic keratosis Neoplasm of uncertain behavior of skin Actinic keratosis- Primary 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 Carcinoma of lung, 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Malignant neoplasm of prostate (HCC) Malignant neoplasm of prostate Radiation cystitis Irradiation cystitis Unilateral inguinal hernia without obstruction or gangrene, recurrence not specified Malignant neoplasm of prostate (HCC) Malignant neoplasm of prostate Malignant neoplasm of urinary bladder, unspecified site (HCC) Malignant 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 (HCC) Mixed hyperlipidemia Essential hypertension Unspecified essential hypertension Prediabetes Other abnormal glucose AK (actinic keratosis) Actinic keratosis Coronary artery disease involving [place] coronary artery of [place] heart without angina pectoris Carcinoma of right lung (HCC) Essential hypertension Unspecified essential hypertension Prostate cancer (HCC) Malignant neoplasm of prostate Essential hypertension- Primary Unspecified essential hypertension Coronary artery disease involving [place] coronary artery of [place] heart without angina pectoris Stage 3a chronic kidney disease (HCC) Prediabetes Other abnormal glucose Personal history of malignant neoplasm of lung Personal history of malignant neoplasm of bronchus and lung [facility] Diagnosis AK (actinic keratosis)- Primary Actinic keratosis History of basal cell carcinoma Personal history of other malignant neoplasm of skin Other seborrheic keratosis Neoplasm of uncertain behavior of skin Actinic keratosis- Primary 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 Carcinoma of lung, 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Malignant neoplasm of prostate (HCC) Malignant neoplasm of prostate Radiation cystitis Irradiation cystitis Unilateral inguinal hernia without obstruction or gangrene, recurrence not specified Malignant neoplasm of prostate (HCC) Malignant neoplasm of prostate Malignant neoplasm of urinary bladder, unspecified site (HCC) Malignant 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 (HCC) Mixed hyperlipidemia Essential hypertension Unspecified essential hypertension Prediabetes Other abnormal glucose AK (actinic keratosis) Actinic keratosis Coronary artery disease involving [place] coronary artery of [place] heart without angina pectoris Carcinoma of right lung (HCC) Essential hypertension Unspecified essential hypertension Prostate cancer (HCC) Malignant neoplasm of prostate Painless hematuria- Primary Hematuria, unspecified [facility] Diagnosis AK (actinic keratosis)- Primary Actinic keratosis History of basal cell carcinoma Personal history of other malignant neoplasm of skin Other seborrheic keratosis Neoplasm of uncertain behavior of skin Actinic keratosis- Primary 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 Carcinoma of lung, 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Malignant neoplasm of prostate (HCC) Malignant neoplasm of prostate Radiation cystitis Irradiation cystitis Unilateral inguinal hernia without obstruction or gangrene, recurrence not specified Malignant neoplasm of prostate (HCC) Malignant neoplasm of prostate Malignant neoplasm of urinary bladder, unspecified site (HCC) Malignant 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 (HCC) Mixed hyperlipidemia Essential hypertension Unspecified essential hypertension Prediabetes Other abnormal glucose AK (actinic keratosis) Actinic keratosis Coronary artery disease involving [place] coronary artery of [place] heart without angina pectoris Carcinoma of right lung (HCC) Essential hypertension Unspecified essential hypertension Prostate cancer (HCC) Malignant neoplasm of prostate Essential hypertension- Primary Unspecified essential hypertension Ambulatory dysfunction Difficulty in walking Balance disorder Other symptoms involving nervous and musculoskeletal systems Hyperkalemia Hyperpotassemia Screening for depression Encounter for screening examination for other mental health and behavioral disorders Personal history of malignant neoplasm of lung Personal history of malignant neoplasm of bronchus and lung Personal history of prostate cancer Personal history of malignant neoplasm of prostate [facility] Diagnosis AK (actinic keratosis)- Primary Actinic keratosis History of basal cell carcinoma Personal history of other malignant neoplasm of skin Other seborrheic keratosis Neoplasm of uncertain behavior of skin Actinic keratosis- Primary 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 Carcinoma of lung, 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Malignant neoplasm of prostate (HCC) Malignant neoplasm of prostate Radiation cystitis Irradiation cystitis Unilateral inguinal hernia without obstruction or gangrene, recurrence not specified Malignant neoplasm of prostate (HCC) Malignant neoplasm of prostate Malignant neoplasm of urinary bladder, unspecified site (HCC) Malignant 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 (HCC) Mixed hyperlipidemia Essential hypertension Unspecified essential hypertension Prediabetes Other abnormal glucose AK (actinic keratosis) Actinic keratosis Coronary artery disease involving [place] coronary artery of [place] heart without angina pectoris Carcinoma of right lung (HCC) Essential hypertension Unspecified essential hypertension Prostate cancer (HCC) Malignant neoplasm of prostate Gross hematuria- Primary Painless hematuria Hematuria, unspecified Screening for genitourinary condition Screening for other and unspecified genitourinary condition [facility] Diagnosis AK (actinic keratosis)- Primary Actinic keratosis History of basal cell carcinoma Personal history of other malignant neoplasm of skin Other seborrheic keratosis Neoplasm of uncertain behavior of skin Actinic keratosis- Primary 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 Carcinoma of lung, 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Malignant neoplasm of prostate (HCC) Malignant neoplasm of prostate Radiation cystitis Irradiation cystitis Unilateral inguinal hernia without obstruction or gangrene, recurrence not specified Malignant neoplasm of prostate (HCC) Malignant neoplasm of prostate Malignant neoplasm of urinary bladder, unspecified site (HCC) Malignant 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 (HCC) Mixed hyperlipidemia Essential hypertension Unspecified essential hypertension Prediabetes Other abnormal glucose AK (actinic keratosis) Actinic keratosis Coronary artery disease involving [place] coronary artery of [place] heart without angina pectoris Carcinoma of right lung (HCC) Essential hypertension Unspecified essential hypertension Prostate cancer (HCC) Malignant neoplasm of prostate Balance disorder Other symptoms involving nervous and musculoskeletal systems Ambulatory dysfunction Difficulty in walking [facility] Diagnosis Onset Date Resolution Status Admit Date Atherosclerotic heart diseas e of [place] coronary artery without angina pectoris chronic April 03, 2025 2 :51pm Essential hypertension chronic Ju 2024 2:51pm [employer] Work Phone: Evaluation note* Diagnosis AK (actinic keratosis)- Primary Actinic keratosis History of basal cell carcinoma Personal history of other malignant neoplasm of skin Other seborrheic keratosis Neoplasm of uncertain behavior of skin Actinic keratosis- Primary 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 Carcinoma of lung, 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Malignant neoplasm of prostate (HCC) Malignant neoplasm of prostate Radiation cystitis Irradiation cystitis Unilateral inguinal hernia without obstruction or gangrene, recurrence not specified Malignant neoplasm of prostate (HCC) Malignant neoplasm of prostate Malignant neoplasm of urinary bladder, unspecified site (HCC) Malignant 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 (HCC) Mixed hyperlipidemia Essential hypertension Unspecified essential hypertension Prediabetes Other abnormal glucose AK (actinic keratosis) Actinic keratosis Coronary artery disease involving [place] coronary artery of [place] heart without angina pectoris Carcinoma of right lung (HCC) Essential hypertension Unspecified essential hypertension Prostate cancer (HCC) Malignant neoplasm of prostate Prostate cancer (HCC)- Primary Malignant neoplasm of prostate 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) [facility] Diagnosis AK (actinic keratosis)- Primary Actinic keratosis History of basal cell carcinoma Personal history of other malignant neoplasm of skin Other seborrheic keratosis Neoplasm of uncertain behavior of skin Actinic keratosis- Primary 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 Carcinoma of lung, 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Malignant neoplasm of prostate (HCC) Malignant neoplasm of prostate Radiation cystitis Irradiation cystitis Unilateral inguinal hernia without obstruction or gangrene, recurrence not specified Malignant neoplasm of prostate (HCC) Malignant neoplasm of prostate Malignant neoplasm of urinary bladder, unspecified site (HCC) Malignant 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 (HCC) Mixed hyperlipidemia Essential hypertension Unspecified essential hypertension Prediabetes Other abnormal glucose AK (actinic keratosis) Actinic keratosis Coronary artery disease involving [place] coronary artery of [place] heart without angina pectoris Carcinoma of right lung (HCC) Essential hypertension Unspecified essential hypertension Prostate cancer (HCC) Malignant neoplasm of prostate Prostate cancer (HCC)- Primary Malignant neoplasm of prostate [facility] Diagnosis AK (actinic keratosis)- Primary Actinic keratosis History of basal cell carcinoma Personal history of other malignant neoplasm of skin Other seborrheic keratosis Neoplasm of uncertain behavior of skin Actinic keratosis- Primary 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 Carcinoma of lung, 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Malignant neoplasm of prostate (HCC) Malignant neoplasm of prostate Radiation cystitis Irradiation cystitis Unilateral inguinal hernia without obstruction or gangrene, recurrence not specified Malignant neoplasm of prostate (HCC) Malignant neoplasm of prostate Malignant neoplasm of urinary bladder, unspecified site (HCC) Malignant 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 (HCC) Mixed hyperlipidemia Essential hypertension Unspecified essential hypertension Prediabetes Other abnormal glucose AK (actinic keratosis) Actinic keratosis Coronary artery disease involving [place] coronary artery of [place] heart without angina pectoris Carcinoma of right lung (HCC) Essential hypertension Unspecified essential hypertension Prostate cancer (HCC) Malignant neoplasm of prostate Balance disorder- Primary Other symptoms involving nervous and musculoskeletal systems Ambulatory dysfunction Difficulty in walking [facility]ative)* Diagnostic Procedure Only (Urgent) - Authorized Specialty Diagnoses / Procedures Referred By Contac t Referred To Contact US IMAGING Diagnoses Hydronephrosis with ureteral stricture, not elsewhere classified Procedures US KIDNEY/BLADDER US RETROPERITONEAL REAL TIME W/IMAGE COMPLETE Haydee Lemus MD [address] [place] [address] Us Imaging Referral ID Status Reason Start Date Expiration Date Visits Requested Visits Authorized [id number] Authorized Auto-Generat ed Referral 12/09/2022 01/08/2024 1 1 * Diagnostic Procedure Only (Routine) - Pending Review Specialty Diagnoses / Procedures Referred By Contac t Referred To Contact US IMAGING Diagnoses Hydronephrosis with ureteral stricture, not elsewhere classified Procedures US KIDNEY/BLADDER US RETROPERITONEAL REAL TIME W/IMAGE COMPLETE Haydee Lemus MD [address] [place] [address] Us Imaging Referral ID Status Reason Start Date Expiration Date Visits Requested Visits Authorized [id number] Pending Review Auto-Generat ed Referral 12/09/2022 01/08/2024 1 1 [facility] for referral (narrative)* Diagnostic Procedure Only (Urgent) - Closed Specialty Diagnoses / Procedures Referred By Contac t Referred To Contact US IMAGING Diagnoses Hydronephrosis with ureteral stricture, not elsewhere classified Procedures US KIDNEY/BLADDER US RETROPERITONEAL REAL TIME W/IMAGE COMPLETE Haydee Lemus MD [address] [place] [address] Us Imaging [id number] Referral ID Status Reason Start Date Expiration Date V isits Requested Visits Authorized [id number] Closed Auto-Generate d Referral 12/09/2022 01/08/2024 1 1 [facility] for referral (narrative)No reason for referral information [facility] Work Phone: reason for visit Narrative* Diagnostic Procedure Only (Routine) - Closed Specialty Diagnoses / Procedures Referred By Contac t Referred To Contact US IMAGING Diagnoses Hydronephrosis with ureteral stricture, not elsewhere classified Procedures US KIDNEY/BLADDER US RETROPERITONEAL REAL TIME W/IMAGE COMPLETE Haydee Lemus MD [address] [place] [address] Us Imaging Referral ID Status Reason Start Date Expiration Date V isits Requested Visits Authorized [id number] Closed Auto-Generate d Referral 12/09/2022 01/08/2024 1 1 [facility] Summary Purpose Family History No Family History Records Found Relationship Condition Age at Onset Recorded Date/T ellen mother Cardiac disease Unknown father Coronary artery disease Unknown brother Hypertension Unknown Advance Directives No Advanced Directives Records FoundDocuments on File Type Date Recorded Patient Science Faculty Member Expl anation Advance Directive(s) 04/01/2021 8:42 AM Advance Directive(s) 02/04/2021 6:01 AM Advance Directive(s) 06/07/2018 6:20 AM Advance Directive(s) 05/26/2018 5:31 PM Advance Directive(s) 10/07/2017 12:59 PM Advance Directive(s) 03/09/2017 6:22 AM Advance Directive(s) 08/27/2016 1:17 PM Advance Directive(s) 08/17/2008 12:00 AM Advance Directive(s) 11/12/2006 12:00 AM Documents on File Type Date Recorded Patient Science Faculty Member Expl anation Advance Directive(s) 04/01/2021 8:42 AM Advance Directive(s) 02/04/2021 6:01 AM Advance Directive(s) 06/07/2018 6:20 AM Advance Directive(s) 05/26/2018 5:31 PM Advance Directive(s) 10/07/2017 12:59 PM Advance Directive(s) 03/09/2017 6:22 AM Advance Directive(s) 08/27/2016 1:17 PM Advance Directive(s) 08/17/2008 12:00 AM Advance Directive(s) 11/12/2006 12:00 AM Documents on File Type Date Recorded Patient Science Faculty Member Expl anation Advance Directive(s) 03/17/2022 8:59 AM Advance Directive(s) 04/01/2021 8:42 AM Advance Directive(s) 02/04/2021 6:01 AM Advance Directive(s) 06/07/2018 6:20 AM Advance Directive(s) 05/26/2018 5:31 PM Advance Directive(s) 10/07/2017 12:59 PM Advance Directive(s) 03/09/2017 6:22 AM Advance Directive(s) 08/27/2016 1:17 PM Advance Directive(s) 08/17/2008 12:00 AM Advance Directive(s) 11/12/2006 12:00 AM Documents on File Type Date Recorded Patient Science Faculty Member Expl anation Advance Directive(s) 03/17/2022 8:59 AM Advance Directive(s) 04/01/2021 8:42 AM Advance Directive(s) 02/04/2021 6:01 AM Advance Directive(s) 06/07/2018 6:20 AM Advance Directive(s) 05/26/2018 5:31 PM Advance Directive(s) 10/07/2017 12:59 PM Advance Directive(s) 03/09/2017 6:22 AM Advance Directive(s) 08/27/2016 1:17 PM Advance Directive(s) 08/17/2008 12:00 AM Advance Directive(s) 11/12/2006 12:00 AM Documents on File Type Date Recorded Patient Science Faculty Member Expl anation Advance Directive(s) 08/27/2016 1:17 PM Advance Directive(s) 08/17/2008 Advance Directive(s) 11/12/2006 Documents on File Type Date Recorded Patient Science Faculty Member Expl anation Advance Directive(s) 08/27/2016 1:17 PM Advance Directive(s) 08/17/2008 Advance Directive(s) 11/12/2006 Advance Directive Response Recorded Date/ Time Advance Directives Yes April 25 1:23pm Living Will Yes February 07, 2021 4 :03am Power of Asbestos Worker Helper Yes February 07, 2021 4:03am Advance Directive Response Recorded Date/ Time Advance Directives Yes April 25 2:23pm Medications Administered Section Inactive Administered Medications - up to 3 most recent administrations Medication Order MAR Action Action Date Dose Rate Site leuprolide 22.5 mg injection (LUPRON DEPOT) 22.5 mg, INTRAMUSCULAR, ONCE, 1 dose, On Wed01/07/22 at 1000, Hazardous Chemotherapy Drug: Use appropriate PPE. Given 01/07/2022 9:48 AM EDT 22.5 mg Buttocks, Left Inactive Administered Medications - up to 3 most recent administrations Medication Order MAR Action Action Date Dose Rate Site lidocaine urojet 2 % 6 mL topical gel (XYLOCAINE, GLYDO) 6 mL, URETHRAL, ONCE (UP TO 30 DAYS AMB), 1 dose, On Wed01/28/22 at 1600, Prior to Procedure Given 01/28/2022 3:57 PM EDT 6 mL Inactive Administered Medications - up to 3 most recent administrations Medication Order MAR Action Action Date Dose Rate Site leuprolide 22.5 mg injection (LUPRON DEPOT) 22.5 mg, INTRAMUSCULAR, ONCE, 1 dose, On Wed04/01/22 at 0900, Hazardous Chemotherapy Drug: Use appropriate PPE. Given 04/01/2022 9:03 AM EDT 22.5 mg Buttocks, Right Inactive Administered Medications - up to 3 most recent administrations Medication Order MAR Action Action Date Dose Rate Site leuprolide 22.5 mg injection (LUPRON DEPOT) 22.5 mg, INTRAMUSCULAR, ONCE, 1 dose, On Wed09/16/22 at 1000, Hazardous Chemotherapy Drug: Use appropriate PPE. Given 09/16/2022 9:58 AM EST 22.5 mg Buttocks, Right Inactive Administered Medications - up to 3 most recent administrations Medication Order MAR Action Action Date Dose Rate Site leuprolide 22.5 mg injection (LUPRON DEPOT) 22.5 mg, INTRAMUSCULAR, ONCE, 1 dose, On Wed12/09/22 at 1100, Hazardous Chemotherapy Drug: Use appropriate PPE. Given 12/09/2022 10:35 AM EDT 22.5 mg Buttocks, Left Inactive Administered Medications - up to 3 most recent administrations Medication Order MAR Action Action Date Dose Rate Site leuprolide 22.5 mg injection (LUPRON DEPOT) 22.5 mg, INTRAMUSCULAR, ONCE, 1 dose, On Wed03/03/23 at 1030, Hazardous Chemotherapy Drug: Use appropriate PPE. Given 03/03/2023 11:03 AM EDT 22.5 mg Buttocks, Left Inactive Administered Medications - up to 3 most recent administrations Medication Order MAR Action Action Date Dose Rate Site leuprolide 22.5 mg subcutaneous syringe (ELIGARD) 22.5 mg, SUBCUTANEOUS, ONCE, 1 dose, On Trena 06/03/23 at 0930, Hazardous Chemotherapy Drug: Use appropriate PPE. Given 06/03/2023 9:52 AM EDT 22.5 mg Abdomen, LLQ Inactive Administered Medications - up to 3 most recent administrations Medication Order MAR Action Action Date Dose Rate Site leuprolide 22.5 mg subcutaneous syringe (ELIGARD) 22.5 mg, SUBCUTANEOUS, ONCE, 1 dose, On Trena 08/26/23 at 1000, Hazardous Chemotherapy Drug: Use appropriate PPE. Given 08/26/2023 10:20 AM EST 22.5 mg Abdomen, RLQ Reason for Referral Specialty Diagnoses / Procedures Referred By Bryanna fowler Referred To Contact [facility] Diagnoses Balance disorder Gait abnormality Physical debility Procedures CONSULT TO PHYSICAL THERAPY PHYSICAL THERAPY EVALUATION HIGH COMPLEX 45 MINS Kya Hinton MD [address] [place] [address] [facility] [address] [place] [address] Referral ID Status Reason Start Date Expiration Date Visits Requested Visits Authorized [id number] Pending Review Auto-Generat ed Referral 03/18/2022 03/18/2023 1 1 Specialty Diagnoses / Procedures Referred By Contac t Referred To Contact CT IMAGING Diagnoses Malignant neoplasm of prostate (HCC) 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) Procedures CT CHEST W IVCON DIAGNOSTIC COMPUTED TOMOGRAPHY THORAX W/CONTRAST Shilpa Thomas, BOX BENDER.ACQUISITIONS ASSISTANT [address] [place] [address] Ct Imaging Referral ID Status Reason Start Date Expiration Date V isits Requested Visits Authorized [id number] Closed Auto-Generate d Referral 06/24/2022 08/08/2022 1 1 Specialty Diagnoses / Procedures Referred By Contac t Referred To Contact CT IMAGING Diagnoses Malignant neoplasm of prostate (HCC) 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) Procedures CT ABD/PEL W IVCON CT ABD & PELVIS W/CONTRAST Shilpa Thomas, BOX BENDER.ACQUISITIONS ASSISTANT [address] [place] [address] Ct Imaging Referral ID Status Reason Start Date Expiration Date V isits Requested Visits Authorized [id number] Closed Auto-Generate d Referral 06/24/2022 08/08/2022 1 1 Specialty Diagnoses / Procedures Referred By Contac t Referred To Contact Diagnoses Urothelial carcinoma (HCC) Procedures REFER TO PACC - PRE ANESTHESIA CONSULTATION CLINIC OFFICE/OUTPATIENT [facility] HIGH MDM 60-74 MINUTES Ruthann Clay MD [address] [place] [address] Referral ID Status Reason Start Date Expiration Date Visits Requested Visits Authorized [id number] Authorized PCP Requested Referral 01/21/2023 01/21/2024 1 1 Specialty Diagnoses / Procedures Referred By Contac t Referred To Contact [facility] Diagnoses Urothelial carcinoma (HCC) Procedures ECG COMPLETE ECG ROUTINE ECG W/LEAST 12 LDS W/I&R Ruthann Clay MD [address] [place] [address] [facility] [address] [place] [id number] Referral ID Status Reason Start Date Expiration Date Visits Requested Visits Authorized [id number] Pending Review Auto-Generat ed Referral 01/21/2023 01/21/2024 1 1 Specialty Diagnoses / Procedures Referred By Contac t Referred To Contact [facility] Diagnoses Unsteady gait Procedures CONSULT TO PHYSICAL THERAPY PHYSICAL THERAPY EVALUATION HIGH COMPLEX 45 MINS Lupe Barreto APRN.ACQUISITIONS ASSISTANT [address] [place] [address] [facility] [address] [address] Referral ID Status Reason Start Date Expiration Date Visits Requested Visits Authorized [id number] Authorized Auto-Generat ed Referral 09/27/2022 09/26/2023 20 20 Specialty Diagnoses / Procedures Referred By Contac t Referred To Contact Dermatology Diagnoses Skin lesion Procedures [place] [address] [id number] Referral ID Status Reason Start Date Expiration Date Visits Requested Visits Authorized [id number] Ref Not Required PCP Requested Referral 07/27/2025 1 1 Chief Complaint and Reason for Visit Chief Complaint 6 M FU STENTED CORONARY ARTERY Reason for Visit Dyspnea on exertion Preoperative cardiovascular examination Atherosclerotic heart disease of [place] coronary artery without angina pectoris Essential hypertension Stented coronary artery Chief Complaint Admit Date 6 M FU April 03, 2025 2:51p m Reason for Visit Admit Date Atherosclerotic heart diseas e of [place] coronary artery without angina pectoris April 03, 2025 2:51pm Essential hypertension April 03, 2025 2: 51pm Additional Source Comments (unrecognized sect ion and content) No Status Records FoundNo Status Records FoundNo Status Records FoundNo Status Records FoundNo Status Records Found INFORMATION SOURCE (unrecogn ized section and content) DATE CREATED AUTHOR 03/22/2018 [facility] DATE CREATED AUTHOR AUTHOR'S ORGANIZ ATION 12/11/2019 [facility] DATE CREATED AUTHOR AUTHOR'S ORGANIZ ATION 02/21/2025 [facility] DATE CREATED AUTHOR AUTHOR'S ORGANIZ ATION 04/07/2025 [facility] DATE CREATED AUTHOR AUTHOR'S ORGANIZ ATION 05/05/2025 [facility] Source Comments (unrecognize d section and content) In the event this informatio n is protected by the Federal Confidentiality of Alcohol and Drug Abuse Patient Records regulations: The Federal rules restrict any use of the information to criminally investigate or prosecute any alcohol or drug abuse patient.[facility] the event this information is protected by the Federal Confidentiality of Alcohol and Drug Abuse Patient Records regulations: The Federal rules restrict any use of the information to criminally investigate or prosecute any alcohol or drug abuse patient.[facility] CenterIn the event this information is protected by the Federal Confidentiality of Alcohol and Drug Abuse Patient Records regulations: The Federal rules restrict any use of the information to criminally investigate or prosecute any alcohol or drug abuse patient.[facility] CenterIn the event this information is protected by the Federal Confidentiality of Alcohol and Drug Abuse Patient Records regulations: The Federal rules restrict any use of the information to criminally investigate or prosecute any alcohol or drug abuse patient.[facility] CenterIn the event this information is protected by the Federal Confidentiality of Alcohol and Drug Abuse Patient Records regulations: The Federal rules restrict any use of the information to criminally investigate or prosecute any alcohol or drug abuse patient.[facility] CenterIn the event this information is protected by the Federal Confidentiality of Alcohol and Drug Abuse Patient Records regulations: The Federal rules restrict any use of the information to criminally investigate or prosecute any alcohol or drug abuse patient.[facility] CenterIn the event this information is protected by the Federal Confidentiality of Alcohol and Drug Abuse Patient Records regulations: The Federal rules restrict any use of the information to criminally investigate or prosecute any alcohol or drug abuse patient.[facility] CenterIn the event this information is protected by the Federal Confidentiality of Alcohol and Drug Abuse Patient Records regulations: The Federal rules restrict any use of the information to criminally investigate or prosecute any alcohol or drug abuse patient.[facility] CenterIn the event this information is protected by the Federal Confidentiality of Alcohol and Drug Abuse Patient Records regulations: The Federal rules restrict any use of the information to criminally investigate or prosecute any alcohol or drug abuse patient.[facility] CenterIn the event this information is protected by the Federal Confidentiality of Alcohol and Drug Abuse Patient Records regulations: The Federal rules restrict any use of the information to criminally investigate or prosecute any alcohol or drug abuse patient.[facility] CenterIn the event this information is protected by the Federal Confidentiality of Alcohol and Drug Abuse Patient Records regulations: The Federal rules restrict any use of the information to criminally investigate or prosecute any alcohol or drug abuse patient.[facility] CenterIn the event this information is protected by the Federal Confidentiality of Alcohol and Drug Abuse Patient Records regulations: The Federal rules restrict any use of the information to criminally investigate or prosecute any alcohol or drug abuse patient.[facility] CenterIn the event this information is protected by the Federal Confidentiality of Alcohol and Drug Abuse Patient Records regulations: The Federal rules restrict any use of the information to criminally investigate or prosecute any alcohol or drug abuse patient.[facility] CenterIn the event this information is protected by the Federal Confidentiality of Alcohol and Drug Abuse Patient Records regulations: The Federal rules restrict any use of the information to criminally investigate or prosecute any alcohol or drug abuse patient.[facility] CenterIn the event this information is protected by the Federal Confidentiality of Alcohol and Drug Abuse Patient Records regulations: The Federal rules restrict any use of the information to criminally investigate or prosecute any alcohol or drug abuse patient.[facility] CenterIn the event this information is protected by the Federal Confidentiality of Alcohol and Drug Abuse Patient Records regulations: The Federal rules restrict any use of the information to criminally investigate or prosecute any alcohol or drug abuse patient.[facility] CenterIn the event this information is protected by the Federal Confidentiality of Alcohol and Drug Abuse Patient Records regulations: The Federal rules restrict any use of the information to criminally investigate or prosecute any alcohol or drug abuse patient.[facility] CenterIn the event this information is protected by the Federal Confidentiality of Alcohol and Drug Abuse Patient Records regulations: The Federal rules restrict any use of the information to criminally investigate or prosecute any alcohol or drug abuse patient.[facility] CenterIn the event this information is protected by the Federal Confidentiality of Alcohol and Drug Abuse Patient Records regulations: The Federal rules restrict any use of the information to criminally investigate or prosecute any alcohol or drug abuse patient.[facility] CenterIn the event this information is protected by the Federal Confidentiality of Alcohol and Drug Abuse Patient Records regulations: The Federal rules restrict any use of the information to criminally investigate or prosecute any alcohol or drug abuse patient.[facility] CenterIn the event this information is protected by the Federal Confidentiality of Alcohol and Drug Abuse Patient Records regulations: The Federal rules restrict any use of the information to criminally investigate or prosecute any alcohol or drug abuse patient.[facility] CenterIn the event this information is protected by the Federal Confidentiality of Alcohol and Drug Abuse Patient Records regulations: The Federal rules restrict any use of the information to criminally investigate or prosecute any alcohol or drug abuse patient.[facility] CenterIn the event this information is protected by the Federal Confidentiality of Alcohol and Drug Abuse Patient Records regulations: The Federal rules restrict any use of the information to criminally investigate or prosecute any alcohol or drug abuse patient.[facility] CenterIn the event this information is protected by the Federal Confidentiality of Alcohol and Drug Abuse Patient Records regulations: The Federal rules restrict any use of the information to criminally investigate or prosecute any alcohol or drug abuse patient.[facility] CenterIn the event this information is protected by the Federal Confidentiality of Alcohol and Drug Abuse Patient Records regulations: The Federal rules restrict any use of the information to criminally investigate or prosecute any alcohol or drug abuse patient.[facility] CenterIn the event this information is protected by the Federal Confidentiality of Alcohol and Drug Abuse Patient Records regulations: The Federal rules restrict any use of the information to criminally investigate or prosecute any alcohol or drug abuse patient.[facility] CenterIn the event this information is protected by the Federal Confidentiality of Alcohol and Drug Abuse Patient Records regulations: The Federal rules restrict any use of the information to criminally investigate or prosecute any alcohol or drug abuse patient.[facility] CenterIn the event this information is protected by the Federal Confidentiality of Alcohol and Drug Abuse Patient Records regulations: The Federal rules restrict any use of the information to criminally investigate or prosecute any alcohol or drug abuse patient.[facility] CenterIn the event this information is protected by the Federal Confidentiality of Alcohol and Drug Abuse Patient Records regulations: The Federal rules restrict any use of the information to criminally investigate or prosecute any alcohol or drug abuse patient.[facility] CenterIn the event this information is protected by the Federal Confidentiality of Alcohol and Drug Abuse Patient Records regulations: The Federal rules restrict any use of the information to criminally investigate or prosecute any alcohol or drug abuse patient.[facility] CenterIn the event this information is protected by the Federal Confidentiality of Alcohol and Drug Abuse Patient Records regulations: The Federal rules restrict any use of the information to criminally investigate or prosecute any alcohol or drug abuse patient.[facility] CenterIn the event this information is protected by the Federal Confidentiality of Alcohol and Drug Abuse Patient Records regulations: The Federal rules restrict any use of the information to criminally investigate or prosecute any alcohol or drug abuse patient.[facility] CenterIn the event this information is protected by the Federal Confidentiality of Alcohol and Drug Abuse Patient Records regulations: The Federal rules restrict any use of the information to criminally investigate or prosecute any alcohol or drug abuse patient.[facility] CenterIn the event this information is protected by the Federal Confidentiality of Alcohol and Drug Abuse Patient Records regulations: The Federal rules restrict any use of the information to criminally investigate or prosecute any alcohol or drug abuse patient.[facility] CenterIn the event this information is protected by the Federal Confidentiality of Alcohol and Drug Abuse Patient Records regulations: The Federal rules restrict any use of the information to criminally investigate or prosecute any alcohol or drug abuse patient.[facility] CenterIn the event this information is protected by the Federal Confidentiality of Alcohol and Drug Abuse Patient Records regulations: The Federal rules restrict any use of the information to criminally investigate or prosecute any alcohol or drug abuse patient.[facility] CenterIn the event this information is protected by the Federal Confidentiality of Alcohol and Drug Abuse Patient Records regulations: The Federal rules restrict any use of the information to criminally investigate or prosecute any alcohol or drug abuse patient.[facility] CenterIn the event this information is protected by the Federal Confidentiality of Alcohol and Drug Abuse Patient Records regulations: The Federal rules restrict any use of the information to criminally investigate or prosecute any alcohol or drug abuse patient.[facility] CenterIn the event this information is protected by the Federal Confidentiality of Alcohol and Drug Abuse Patient Records regulations: The Federal rules restrict any use of the information to criminally investigate or prosecute any alcohol or drug abuse patient.[facility] CenterIn the event this information is protected by the Federal Confidentiality of Alcohol and Drug Abuse Patient Records regulations: The Federal rules restrict any use of the information to criminally investigate or prosecute any alcohol or drug abuse patient.[facility] CenterIn the event this information is protected by the Federal Confidentiality of Alcohol and Drug Abuse Patient Records regulations: The Federal rules restrict any use of the information to criminally investigate or prosecute any alcohol or drug abuse patient.[facility] CenterIn the event this information is protected by the Federal Confidentiality of Alcohol and Drug Abuse Patient Records regulations: The Federal rules restrict any use of the information to criminally investigate or prosecute any alcohol or drug abuse patient.[facility] CenterIn the event this information is protected by the Federal Confidentiality of Alcohol and Drug Abuse Patient Records regulations: The Federal rules restrict any use of the information to criminally investigate or prosecute any alcohol or drug abuse patient.[facility] CenterIn the event this information is protected by the Federal Confidentiality of Alcohol and Drug Abuse Patient Records regulations: The Federal rules restrict any use of the information to criminally investigate or prosecute any alcohol or drug abuse patient.[facility] CenterIn the event this information is protected by the Federal Confidentiality of Alcohol and Drug Abuse Patient Records regulations: The Federal rules restrict any use of the information to criminally investigate or prosecute any alcohol or drug abuse patient.[facility] CenterIn the event this information is protected by the Federal Confidentiality of Alcohol and Drug Abuse Patient Records regulations: The Federal rules restrict any use of the information to criminally investigate or prosecute any alcohol or drug abuse patient.[facility] CenterIn the event this information is protected by the Federal Confidentiality of Alcohol and Drug Abuse Patient Records regulations: The Federal rules restrict any use of the information to criminally investigate or prosecute any alcohol or drug abuse patient.[facility] CenterIn the event this information is protected by the Federal Confidentiality of Alcohol and Drug Abuse Patient Records regulations: The Federal rules restrict any use of the information to criminally investigate or prosecute any alcohol or drug abuse patient.[facility] CenterIn the event this information is protected by the Federal Confidentiality of Alcohol and Drug Abuse Patient Records regulations: The Federal rules restrict any use of the information to criminally investigate or prosecute any alcohol or drug abuse patient.[facility] CenterIn the event this information is protected by the Federal Confidentiality of Alcohol and Drug Abuse Patient Records regulations: The Federal rules restrict any use of the information to criminally investigate or prosecute any alcohol or drug abuse patient.[facility] CenterIn the event this information is protected by the Federal Confidentiality of Alcohol and Drug Abuse Patient Records regulations: The Federal rules restrict any use of the information to criminally investigate or prosecute any alcohol or drug abuse patient.[facility] CenterIn the event this information is protected by the Federal Confidentiality of Alcohol and Drug Abuse Patient Records regulations: The Federal rules restrict any use of the information to criminally investigate or prosecute any alcohol or drug abuse patient.[facility] CenterIn the event this information is protected by the Federal Confidentiality of Alcohol and Drug Abuse Patient Records regulations: The Federal rules restrict any use of the information to criminally investigate or prosecute any alcohol or drug abuse patient.[facility] CenterIn the event this information is protected by the Federal Confidentiality of Alcohol and Drug Abuse Patient Records regulations: The Federal rules restrict any use of the information to criminally investigate or prosecute any alcohol or drug abuse patient.[facility] CenterIn the event this information is protected by the Federal Confidentiality of Alcohol and Drug Abuse Patient Records regulations: The Federal rules restrict any use of the information to criminally investigate or prosecute any alcohol or drug abuse patient.[facility] CenterIn the event this information is protected by the Federal Confidentiality of Alcohol and Drug Abuse Patient Records regulations: The Federal rules restrict any use of the information to criminally investigate or prosecute any alcohol or drug abuse patient.[facility] CenterIn the event this information is protected by the Federal Confidentiality of Alcohol and Drug Abuse Patient Records regulations: The Federal rules restrict any use of the information to criminally investigate or prosecute any alcohol or drug abuse patient.[facility] CenterIn the event this information is protected by the Federal Confidentiality of Alcohol and Drug Abuse Patient Records regulations: The Federal rules restrict any use of the information to criminally investigate or prosecute any alcohol or drug abuse patient.[facility] CenterIn the event this information is protected by the Federal Confidentiality of Alcohol and Drug Abuse Patient Records regulations: The Federal rules restrict any use of the information to criminally investigate or prosecute any alcohol or drug abuse patient.[facility] CenterIn the event this information is protected by the Federal Confidentiality of Alcohol and Drug Abuse Patient Records regulations: The Federal rules restrict any use of the information to criminally investigate or prosecute any alcohol or drug abuse patient.[facility] CenterIn the event this information is protected by the Federal Confidentiality of Alcohol and Drug Abuse Patient Records regulations: The Federal rules restrict any use of the information to criminally investigate or prosecute any alcohol or drug abuse patient.[facility] CenterIn the event this information is protected by the Federal Confidentiality of Alcohol and Drug Abuse Patient Records regulations: The Federal rules restrict any use of the information to criminally investigate or prosecute any alcohol or drug abuse patient.[facility] CenterIn the event this information is protected by the Federal Confidentiality of Alcohol and Drug Abuse Patient Records regulations: The Federal rules restrict any use of the information to criminally investigate or prosecute any alcohol or drug abuse patient.[facility] CenterIn the event this information is protected by the Federal Confidentiality of Alcohol and Drug Abuse Patient Records regulations: The Federal rules restrict any use of the information to criminally investigate or prosecute any alcohol or drug abuse patient.[facility] CenterIn the event this information is protected by the Federal Confidentiality of Alcohol and Drug Abuse Patient Records regulations: The Federal rules restrict any use of the information to criminally investigate or prosecute any alcohol or drug abuse patient.[facility] CenterIn the event this information is protected by the Federal Confidentiality of Alcohol and Drug Abuse Patient Records regulations: The Federal rules restrict any use of the information to criminally investigate or prosecute any alcohol or drug abuse patient.[facility] CenterIn the event this information is protected by the Federal Confidentiality of Alcohol and Drug Abuse Patient Records regulations: The Federal rules restrict any use of the information to criminally investigate or prosecute any alcohol or drug abuse patient.[facility] CenterIn the event this information is protected by the Federal Confidentiality of Alcohol and Drug Abuse Patient Records regulations: The Federal rules restrict any use of the information to criminally investigate or prosecute any alcohol or drug abuse patient.[facility] CenterIn the event this information is protected by the Federal Confidentiality of Alcohol and Drug Abuse Patient Records regulations: The Federal rules restrict any use of the information to criminally investigate or prosecute any alcohol or drug abuse patient.[facility] CenterIn the event this information is protected by the Federal Confidentiality of Alcohol and Drug Abuse Patient Records regulations: The Federal rules restrict any use of the information to criminally investigate or prosecute any alcohol or drug abuse patient.[facility] CenterIn the event this information is protected by the Federal Confidentiality of Alcohol and Drug Abuse Patient Records regulations: The Federal rules restrict any use of the information to criminally investigate or prosecute any alcohol or drug abuse patient.[facility] CenterIn the event this information is protected by the Federal Confidentiality of Alcohol and Drug Abuse Patient Records regulations: The Federal rules restrict any use of the information to criminally investigate or prosecute any alcohol or drug abuse patient.[facility] CenterIn the event this information is protected by the Federal Confidentiality of Alcohol and Drug Abuse Patient Records regulations: The Federal rules restrict any use of the information to criminally investigate or prosecute any alcohol or drug abuse patient.[facility] CenterIn the event this information is protected by the Federal Confidentiality of Alcohol and Drug Abuse Patient Records regulations: The Federal rules restrict any use of the information to criminally investigate or prosecute any alcohol or drug abuse patient.[facility] CenterIn the event this information is protected by the Federal Confidentiality of Alcohol and Drug Abuse Patient Records regulations: The Federal rules restrict any use of the information to criminally investigate or prosecute any alcohol or drug abuse patient.[facility] CenterIn the event this information is protected by the Federal Confidentiality of Alcohol and Drug Abuse Patient Records regulations: The Federal rules restrict any use of the information to criminally investigate or prosecute any alcohol or drug abuse patient.[facility] CenterIn the event this information is protected by the Federal Confidentiality of Alcohol and Drug Abuse Patient Records regulations: The Federal rules restrict any use of the information to criminally investigate or prosecute any alcohol or drug abuse patient.[facility] CenterIn the event this information is protected by the Federal Confidentiality of Alcohol and Drug Abuse Patient Records regulations: The Federal rules restrict any use of the information to criminally investigate or prosecute any alcohol or drug abuse patient.[facility] CenterIn the event this information is protected by the Federal Confidentiality of Alcohol and Drug Abuse Patient Records regulations: The Federal rules restrict any use of the information to criminally investigate or prosecute any alcohol or drug abuse patient.[facility] CenterIn the event this information is protected by the Federal Confidentiality of Alcohol and Drug Abuse Patient Records regulations: The Federal rules restrict any use of the information to criminally investigate or prosecute any alcohol or drug abuse patient.[facility] CenterIn the event this information is protected by the Federal Confidentiality of Alcohol and Drug Abuse Patient Records regulations: The Federal rules restrict any use of the information to criminally investigate or prosecute any alcohol or drug abuse patient.[facility] CenterIn the event this information is protected by the Federal Confidentiality of Alcohol and Drug Abuse Patient Records regulations: The Federal rules restrict any use of the information to criminally investigate or prosecute any alcohol or drug abuse patient.[facility] CenterIn the event this information is protected by the Federal Confidentiality of Alcohol and Drug Abuse Patient Records regulations: The Federal rules restrict any use of the information to criminally investigate or prosecute any alcohol or drug abuse patient.[facility] CenterIn the event this information is protected by the Federal Confidentiality of Alcohol and Drug Abuse Patient Records regulations: The Federal rules restrict any use of the information to criminally investigate or prosecute any alcohol or drug abuse patient.[facility] CenterIn the event this information is protected by the Federal Confidentiality of Alcohol and Drug Abuse Patient Records regulations: The Federal rules restrict any use of the information to criminally investigate or prosecute any alcohol or drug abuse patient.[facility] CenterIn the event this information is protected by the Federal Confidentiality of Alcohol and Drug Abuse Patient Records regulations: The Federal rules restrict any use of the information to criminally investigate or prosecute any alcohol or drug abuse patient.[facility] CenterIn the event this information is protected by the Federal Confidentiality of Alcohol and Drug Abuse Patient Records regulations: The Federal rules restrict any use of the information to criminally investigate or prosecute any alcohol or drug abuse patient.[facility] CenterIn the event this information is protected by the Federal Confidentiality of Alcohol and Drug Abuse Patient Records regulations: The Federal rules restrict any use of the information to criminally investigate or prosecute any alcohol or drug abuse patient.[facility] CenterIn the event this information is protected by the Federal Confidentiality of Alcohol and Drug Abuse Patient Records regulations: The Federal rules restrict any use of the information to criminally investigate or prosecute any alcohol or drug abuse patient.[facility] CenterIn the event this information is protected by the Federal Confidentiality of Alcohol and Drug Abuse Patient Records regulations: The Federal rules restrict any use of the information to criminally investigate or prosecute any alcohol or drug abuse patient.[facility] CenterIn the event this information is protected by the Federal Confidentiality of Alcohol and Drug Abuse Patient Records regulations: The Federal rules restrict any use of the information to criminally investigate or prosecute any alcohol or drug abuse patient.[facility] CenterIn the event this information is protected by the Federal Confidentiality of Alcohol and Drug Abuse Patient Records regulations: The Federal rules restrict any use of the information to criminally investigate or prosecute any alcohol or drug abuse patient.[facility] CenterIn the event this information is protected by the Federal Confidentiality of Alcohol and Drug Abuse Patient Records regulations: The Federal rules restrict any use of the information to criminally investigate or prosecute any alcohol or drug abuse patient.[facility] CenterIn the event this information is protected by the Federal Confidentiality of Alcohol and Drug Abuse Patient Records regulations: The Federal rules restrict any use of the information to criminally investigate or prosecute any alcohol or drug abuse patient.[facility] CenterIn the event this information is protected by the Federal Confidentiality of Alcohol and Drug Abuse Patient Records regulations: The Federal rules restrict any use of the information to criminally investigate or prosecute any alcohol or drug abuse patient.[facility] CenterIn the event this information is protected by the Federal Confidentiality of Alcohol and Drug Abuse Patient Records regulations: The Federal rules restrict any use of the information to criminally investigate or prosecute any alcohol or drug abuse patient.[facility] CenterIn the event this information is protected by the Federal Confidentiality of Alcohol and Drug Abuse Patient Records regulations: The Federal rules restrict any use of the information to criminally investigate or prosecute any alcohol or drug abuse patient.[facility] CenterIn the event this information is protected by the Federal Confidentiality of Alcohol and Drug Abuse Patient Records regulations: The Federal rules restrict any use of the information to criminally investigate or prosecute any alcohol or drug abuse patient.[facility] CenterIn the event this information is protected by the Federal Confidentiality of Alcohol and Drug Abuse Patient Records regulations: The Federal rules restrict any use of the information to criminally investigate or prosecute any alcohol or drug abuse patient.[facility] CenterIn the event this information is protected by the Federal Confidentiality of Alcohol and Drug Abuse Patient Records regulations: The Federal rules restrict any use of the information to criminally investigate or prosecute any alcohol or drug abuse patient.[facility] CenterIn the event this information is protected by the Federal Confidentiality of Alcohol and Drug Abuse Patient Records regulations: The Federal rules restrict any use of the information to criminally investigate or prosecute any alcohol or drug abuse patient.[facility] CenterIn the event this information is protected by the Federal Confidentiality of Alcohol and Drug Abuse Patient Records regulations: The Federal rules restrict any use of the information to criminally investigate or prosecute any alcohol or drug abuse patient.[facility] CenterIn the event this information is protected by the Federal Confidentiality of Alcohol and Drug Abuse Patient Records regulations: The Federal rules restrict any use of the information to criminally investigate or prosecute any alcohol or drug abuse patient.[facility] CenterIn the event this information is protected by the Federal Confidentiality of Alcohol and Drug Abuse Patient Records regulations: The Federal rules restrict any use of the information to criminally investigate or prosecute any alcohol or drug abuse patient.[facility] CenterIn the event this information is protected by the Federal Confidentiality of Alcohol and Drug Abuse Patient Records regulations: The Federal rules restrict any use of the information to criminally investigate or prosecute any alcohol or drug abuse patient.[facility] CenterIn the event this information is protected by the Federal Confidentiality of Alcohol and Drug Abuse Patient Records regulations: The Federal rules restrict any use of the information to criminally investigate or prosecute any alcohol or drug abuse patient.[facility] CenterIn the event this information is protected by the Federal Confidentiality of Alcohol and Drug Abuse Patient Records regulations: The Federal rules restrict any use of the information to criminally investigate or prosecute any alcohol or drug abuse patient.[facility] CenterIn the event this information is protected by the Federal Confidentiality of Alcohol and Drug Abuse Patient Records regulations: The Federal rules restrict any use of the information to criminally investigate or prosecute any alcohol or drug abuse patient.[facility] CenterIn the event this information is protected by the Federal Confidentiality of Alcohol and Drug Abuse Patient Records regulations: The Federal rules restrict any use of the information to criminally investigate or prosecute any alcohol or drug abuse patient.[facility] CenterIn the event this information is protected by the Federal Confidentiality of Alcohol and Drug Abuse Patient Records regulations: The Federal rules restrict any use of the information to criminally investigate or prosecute any alcohol or drug abuse patient.[facility] CenterIn the event this information is protected by the Federal Confidentiality of Alcohol and Drug Abuse Patient Records regulations: The Federal rules restrict any use of the information to criminally investigate or prosecute any alcohol or drug abuse patient.[facility] CenterIn the event this information is protected by the Federal Confidentiality of Alcohol and Drug Abuse Patient Records regulations: The Federal rules restrict any use of the information to criminally investigate or prosecute any alcohol or drug abuse patient.[facility] CenterIn the event this information is protected by the Federal Confidentiality of Alcohol and Drug Abuse Patient Records regulations: The Federal rules restrict any use of the information to criminally investigate or prosecute any alcohol or drug abuse patient.[facility] CenterIn the event this information is protected by the Federal Confidentiality of Alcohol and Drug Abuse Patient Records regulations: The Federal rules restrict any use of the information to criminally investigate or prosecute any alcohol or drug abuse patient.[facility] CenterIn the event this information is protected by the Federal Confidentiality of Alcohol and Drug Abuse Patient Records regulations: The Federal rules restrict any use of the information to criminally investigate or prosecute any alcohol or drug abuse patient.[facility] CenterIn the event this information is protected by the Federal Confidentiality of Alcohol and Drug Abuse Patient Records regulations: The Federal rules restrict any use of the information to criminally investigate or prosecute any alcohol or drug abuse patient.[facility] CenterIn the event this information is protected by the Federal Confidentiality of Alcohol and Drug Abuse Patient Records regulations: The Federal rules restrict any use of the information to criminally investigate or prosecute any alcohol or drug abuse patient.[facility] CenterIn the event this information is protected by the Federal Confidentiality of Alcohol and Drug Abuse Patient Records regulations: The Federal rules restrict any use of the information to criminally investigate or prosecute any alcohol or drug abuse patient.[facility] CenterIn the event this information is protected by the Federal Confidentiality of Alcohol and Drug Abuse Patient Records regulations: The Federal rules restrict any use of the information to criminally investigate or prosecute any alcohol or drug abuse patient.[facility] CenterIn the event this information is protected by the Federal Confidentiality of Alcohol and Drug Abuse Patient Records regulations: The Federal rules restrict any use of the information to criminally investigate or prosecute any alcohol or drug abuse patient.[facility] CenterIn the event this information is protected by the Federal Confidentiality of Alcohol and Drug Abuse Patient Records regulations: The Federal rules restrict any use of the information to criminally investigate or prosecute any alcohol or drug abuse patient.[facility] CenterIn the event this information is protected by the Federal Confidentiality of Alcohol and Drug Abuse Patient Records regulations: The Federal rules restrict any use of the information to criminally investigate or prosecute any alcohol or drug abuse patient.[facility] CenterIn the event this information is protected by the Federal Confidentiality of Alcohol and Drug Abuse Patient Records regulations: The Federal rules restrict any use of the information to criminally investigate or prosecute any alcohol or drug abuse patient.[facility] CenterIn the event this information is protected by the Federal Confidentiality of Alcohol and Drug Abuse Patient Records regulations: The Federal rules restrict any use of the information to criminally investigate or prosecute any alcohol or drug abuse patient.[facility] CenterIn the event this information is protected by the Federal Confidentiality of Alcohol and Drug Abuse Patient Records regulations: The Federal rules restrict any use of the information to criminally investigate or prosecute any alcohol or drug abuse patient.[facility] CenterIn the event this information is protected by the Federal Confidentiality of Alcohol and Drug Abuse Patient Records regulations: The Federal rules restrict any use of the information to criminally investigate or prosecute any alcohol or drug abuse patient.[facility] CenterIn the event this information is protected by the Federal Confidentiality of Alcohol and Drug Abuse Patient Records regulations: The Federal rules restrict any use of the information to criminally investigate or prosecute any alcohol or drug abuse patient.[facility] CenterIn the event this information is protected by the Federal Confidentiality of Alcohol and Drug Abuse Patient Records regulations: The Federal rules restrict any use of the information to criminally investigate or prosecute any alcohol or drug abuse patient.[facility] CenterIn the event this information is protected by the Federal Confidentiality of Alcohol and Drug Abuse Patient Records regulations: The Federal rules restrict any use of the information to criminally investigate or prosecute any alcohol or drug abuse patient.[facility] Reason for Visit (unrecogniz ed section and content) Reason Comments PT Discharge Specialty Diagnoses / Procedures Referred By Bryanna t Referred To Contact [facility] Diagnoses Balance disorder Ambulatory dysfunction Procedures CONSULT TO PHYSICAL THERAPY PHYSICAL THERAPY EVALUATION HIGH COMPLEX 45 MINS Kya Hinton MD [address] [place] [address] Phone: tel: fax: [facility] [address] [place] [address] Referral ID Status Reason Start Date Expiration Date Visits Requested Visits Authorized [id number] Authorized Auto-Generat ed Referral 09/27/2024 09/26/2025 99 99 Reason Comments PT Eval Reason Comments Physical Therapy Specialty Diagnoses / Procedures Referred By Conthussein t Referred To Contact [facility] Diagnoses Unsteady gait Procedures CONSULT TO PHYSICAL THERAPY PHYSICAL THERAPY EVALUATION HIGH COMPLEX 45 MINS Lupe Barreto APRN.ACQUISITIONS ASSISTANT [address] [place] [address] [facility] [place] [address] [place] [address] Referral ID Status Reason Start Date Expiration Date Visits Requested Visits Authorized [id number] Authorized Auto-Generat ed Referral 09/27/2022 09/26/2023 20 20 Reason Comments Imm/Inj Specialty Diagnoses / Procedures Referred By Bryanna t Referred To Contact Hematology/Oncology / HEMATOLOGY/ONCOLOGY Diagnoses Malignant neoplasm of prostate C61 (ICD-10-CM) - Malignant neoplasm of prostate Procedures LEUPROLIDE ACETATE SUSPNSION LUPRON-changing to every 4 month dose Miguel Angel Reese MD [address] [facility] [place] [address] Wstr, Injection Ankit [facility] [address] [place] [address] Referral ID Status Reason Start Date Expiration Date V isits Requested Visits Authorized [id number] Authorized 05/21/2020 09/26/2023 99 99 Specialty Diagnoses / Procedures Referred By Contact Referred To Contact Pre Surg Testing [facility] Diagnoses PAT ROBOTIC ASSISTED LAPAROSCOPIC RIGHT NEPHROURETERECTOMY Procedures COMPLETE [facility] Zee Romero MD [address] [place] [address] Pre Surg Testing [facility] [address] [place] [address] Referral ID Status Reason Start Date Expiration Date Visits Re quested Visits Authorized [id number] Closed 10/12/2022 09/26/2023 [address] Specialty Diagnoses / Procedures Referred By Bryanna t Referred To Contact CT IMAGING Diagnoses Malignant neoplasm of prostate (HCC) 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) Procedures CT CHEST W IVCON DIAGNOSTIC COMPUTED TOMOGRAPHY THORAX W/CONTRAST Shilpa Thomas APRN.ACQUISITIONS ASSISTANT [address] [place] [address] Ct Imaging Referral ID Status Reason Start Date Expiration Date V isits Requested Visits Authorized [id number] Closed Auto-Generate d Referral 06/24/2022 08/08/2022 1 1 Specialty Diagnoses / Procedures [facility] Diagnoses Malignant neoplasm of prostate (HCC) 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) Procedures CT CHEST WO IVCON DIAGNOSTIC COMPUTED TOMOGRAPHY THORAX W/O CNTRST Miguel Angel Reese MD [address] [place] [address] Ct Imaging Referral ID Status Reason Start Date Expiration Date V isits Requested Visits Authorized [id number] Closed Auto-Generate d Referral 12/03/2021 01/17/2022 2 2 Specialty Diagnoses / Procedures Referred By [facility] Referred To Contact Hematology/Oncology / HEMATOLOGY/ONCOLOGY Diagnoses Malignant neoplasm of prostate C61 (ICD-10-CM) - Malignant neoplasm of prostate Procedures LEUPROLIDE ACETATE SUSPNSION LUPRON-changing to every 4 month dose Miguel Angel Reese MD [address] [address] Wstr, Injection Ankit [facility] [address] [place] [address] Referral ID Status Reason Start Date Expiration Date V isits Requested Visits Authorized [id number] Pending Review 05/21/2020 09/26/2022 99 99 Reason Onset Date Comments Refill Request 01/04/2022 Reason Comments Established Patient Reason Comments Schedule Surgery Reason Comments Cystoscopy-1 Reason Onset Date Comments Patient Update 03/16/2022 Reason Comments Surgical Followup Reason Comments Physical therapy Order Specialty Diagnoses / Procedures Referred By [facility] Referred To Contact Hematology/Oncology / HEMATOLOGY/ONCOLOGY Diagnoses Malignant neoplasm of prostate C61 (ICD-10-CM) - Malignant neoplasm of prostate Procedures LEUPROLIDE ACETATE SUSPNSION LUPRON-changing to every 4 month dose Miguel Angel Reese MD [address] [place] [address] Wstr, Injection Ankit [facility] [address] [place] [address] Referral ID Status Reason Start Date Expiration Date V isits Requested Visits Authorized [id number] Authorized 05/21/2020 09/26/2022 99 99 Reason Comments Patient Question Reason Onset Date Comments Refill Request 04/06/2022 Reason Comments Bladder Cancer Reason Comments Patient Request Reason Comments discuss antidepression Reason Onset Date Comments Refill Request 05/24/2022 Reason Onset Date Comments Refill Request 06/06/2022 Reason Comments Refill Request Reason Onset Date Comments Refill Request 07/05/2022 Reason Onset Date Comments Refill Request 06/18/2022 Reason Comments Established Patient OV, labs, CT Reason Comments surgery Reason Comments Opened In Error Reason Onset Date Comments Refill Request 08/09/2022 Specialty Diagnoses / Procedures Referred By Bryanna fowler Referred To Contact Pre Surg Testing [facility] [place] Diagnoses Bladder cancer (HCC) Procedures OFFICE/OUTPATIENT ESTABLISHED HIGH MDM 40-54 MIN COMPLETE PST Zee Romero MD [address] [place] [address] Pre Surg Testing [facility] [place] [address] [place] [address] Referral ID Status Reason Start Date Expiration Date Visits Re quested Visits Authorized [id number] Closed 08/18/2022 09/26/2022 1 1 Reason Onset Date Comments Post-Op Visit 08/06/2022 Orders 08/06/2022 Reason Onset Date Comments Refill Request 09/10/2022 Reason Comments Surgery canceled Reason Comments Established Patient Reason Onset Date Comments Refill Request 12/09/2022 Reason Comments Question Reason Onset Date Comments Refill Request 12/29/2022 Reason Comments Results Reason Comments Care Coordination ORAL ANTI-CANCER AGE NTS EDUCATION Reason Comments Consult HYDRONEPHROSIS WITH URETERAL STRICTURE Bladder Cancer Reason Comments Patient Update Reason Comments Follow Up Reason Onset Date Comments Refill Request 03/12/2023 Reason Comments Appointment Reason Onset Date Comments Refill Request 04/12/2023 Reason Onset Date Comments Refill Request 04/19/2023 Reason Comments No Show Reason Onset Date Comments Refill Request 05/12/2023 Reason Onset Date Comments Refill Request 05/16/2023 Reason Comments Appointment Cancelled Reason Comments Established Patient OV, labs, Lupron Reason Onset Date Comments Refill Request 06/11/2023 Reason Comments Care Coordination Follow Up Note Reason Onset Date Comments Refill Request 07/14/2023 Reason Comments Fall requesting PT Reason Onset Date Comments Refill Request 07/29/2023 Reason Comments Radiology US Specialty Diagnoses / [facility] US IMAGING Diagnoses Hydronephrosis with ureteral stricture, not elsewhere classified Procedures US KIDNEY/BLADDER US RETROPERITONEAL REAL TIME W/IMAGE COMPLETE Haydee Lemus MD [address] [place] [address] [place] [address] Referral ID Status Reason Start Date Expiration Date V isits Requested Visits Authorized [id number] Closed Auto-Generate d Referral 12/09/2022 01/08/2024 1 1 Reason Onset Date Comments Refill Request 08/08/2023 Specialty Diagnoses / Procedures [facility] Referred To Contact Hematology/Oncology / HEMATOLOGY/ONCOLOGY Diagnoses Malignant neoplasm of prostate C61 (ICD-10-CM) - Malignant neoplasm of prostate Procedures LEUPROLIDE ACETATE SUSPNSION LUPRON-changing to every 4 month dose Miguel Angel Reese [place] [address] Wstr, Injection Ankit [facility] [address] [place] [address] Reason Onset Date Comments Refill Request 11/01/2023 Referral ID Status Reason Start Date Expiration Date V isits Requested Visits Authorized [id number] Authorized 05/21/2020 09/26/2024 99 99 Reason Comments Faxed to [facility] Reason Onset Date Comments Refill Request 01/09/2024 Reason Onset Date Comments Refill Request 04/09/2024 Reason Comments Established Patient Reason Onset Date Comments Refill Request 07/30/2024 Reason Onset Date Comments Refill Request 09/29/2024 Reason Onset Date Comments Refill Request 10/04/2024 Reason Onset Date Comments Refill Request 10/08/2024 Reason Comments Medicare Wellness Exam Reason Comments Established Patient OV, labs, inj Reason Onset Date Comments Refill Request 10/29/2024 Reason Onset Date Comments Refill Request 11/05/2024 Specialty Diagnoses / Procedures Referred By [facility] Referred To Contact Hematology/Oncology / HEMATOLOGY/ONCOLOGY Diagnoses Malignant neoplasm of prostate C61 (ICD-10-CM) - Malignant neoplasm of prostate Procedures LEUPROLIDE ACETATE SUSPNSION LUPRON-changing to every 4 month dose Miugel Angel Reese MD Phone: tel: fax: Wstr, Injection Ankit [facility] [address] [place] [address] Phone: tel: Referral ID Status Reason Start Date Expiration Date V isits Requested Visits Authorized [id number] Authorized 05/21/2020 09/26/2025 99 99 Reason Comments Recheck Reason Comments Patient Question Reason Comments Follow Up 6 weeks Reason Comments Follow Up Blood In Urine Specialty Diagnoses / Procedures Referred By Bryanna fowler Referred To Contact Urology Diagnoses Painless hematuria Procedures CONSULT TO UROLOGY OFFICE/OUTPATIENT [facility] 60 MINUTES Kya Hinton MD [address] [place] [address] Phone: tel: fax: Referral ID Status Reason Start Date Expiration Date V isits Requested Visits Authorized [id number] Closed PCP Requested Referral 02/09/2025 02/09/2026 1 1 Specialty Diagnoses / Procedures Referred By Bryanna fowler Referred To Contact Hematology/Oncology / HEMATOLOGY/ONCOLOGY Diagnoses Malignant neoplasm of prostate (HCC) C61 (ICD-10-CM) - Malignant neoplasm of prostate Procedures LEUPROLIDE ACETATE SUSPNSION LUPRON-changing to every 4 month dose Miguel Angel Reese MD Phone: tel: fax: Wstr, Injection Ankit [facility] [address] [place] [address] Phone: tel: Reason Onset Date Comments Results 02/14/2025 Care Teams (unrecognized sec tion and content) Diesel Engine Mechanic Relationship Specialty Start Date End Date Kya Hinton MD [address] [place] [address] PCP - General Internal Medicine 02/08/17 Sudha Kim, RICHELLE [address] [place] [address] Specialty Electrical Controls Designer Hematology/Oncology 01/02/22 Diesel Engine Mechanic Relationship Specialty Start Date End Date Kya Hinton MD [address] [facility] [place] [place] [address] PCP - General Internal Medicine 02/08/17 Sudha Kim, RN [address] [place] [address] Specialty Electrical Controls Designer Hematology/Oncology 01/02/22 Diesel Engine Mechanic Relationship Specialty Start Date End Date Kya Hinton MD [address] [facility] [place] [address] PCP - General Internal Medicine 02/08/17 Sudha Kim, RICHELLE [address] [place] [address] Specialty Electrical Controls Designer Hematology/Oncology 01/02/22 Diesel Engine Mechanic Relationship Specialty Start Date End Date Kya Hinton MD [address] [facility] [place] [address] PCP - General Internal Medicine 02/08/17 Sudha Kim, RN [address] [address] Specialty Electrical Controls Designer Hematology/Oncology 01/02/22 Diesel Engine Mechanic Relationship Specialty Start Date End Date Kya Hinton MD [address] [facility] [place] [address] PCP - General Internal Medicine 02/08/17 Sudha Kim, RN [address] [address] Specialty Electrical Controls Designer Hematology/Oncology 01/02/22 Diesel Engine Mechanic Relationship Specialty Start Date End Date Kya Hinton MD [address] [facility] [place] [address] PCP - General Internal Medicine 02/08/17 Sudha Kim, RICHELLE [address] [place] [address] Specialty Electrical Controls Designer Hematology/Oncology 01/02/22 Diesel Engine Mechanic Relationship Specialty Start Date End Date Kya Hinton MD [address] [place] [address] PCP - General Internal Medicine 02/08/17 Sudha Kim RN [address] [place] [address] Specialty Electrical Controls Designer Hematology/Oncology 01/02/22 Diesel Engine Mechanic Relationship Specialty Start Date End Date Kya Hinton MD [address] [facility] [place] [address] PCP - General Internal Medicine 02/08/17 Sudha Kim RN [address] [place] [address] Specialty Electrical Controls Designer Hematology/Oncology 01/02/22 Diesel Engine Mechanic Relationship Specialty Start Date End Date Kya Hinton MD [address] [place] [address] PCP - General Internal Medicine 02/08/17 Sudha Kim RN [address] [place] [address] Specialty Electrical Controls Designer Hematology/Oncology 01/02/22 Diesel Engine Mechanic Relationship Specialty Start Date End Date Kya Hinton MD [address] [place] [address] PCP - General Internal Medicine 02/08/17 Sudha Kim RN [address] [place] [address] Specialty Electrical Controls Designer Hematology/Oncology 01/02/22 Diesel Engine Mechanic Relationship Specialty Start Date End Date Kya Hinton MD [address] [facility] [place] [place] [address] PCP - General Internal Medicine 02/08/17 Sudha Kim, RN [address] [place] [address] Specialty Electrical Controls Designer Hematology/Oncology 01/02/22 Diesel Engine Mechanic Relationship Specialty Start Date End Date Kya Hinton MD [address] [facility] [place] [address] PCP - General Internal Medicine 02/08/17 Sudha Kim, RN [address] [place] [address] Specialty Electrical Controls Designer Hematology/Oncology 01/02/22 Diesel Engine Mechanic Relationship Specialty Start Date End Date Kya Hinton MD [address] [facility] [place] [place] [address] PCP - General Internal Medicine 02/08/17 Sudha Kim, RN [address] [place] [address] Specialty Electrical Controls Designer Hematology/Oncology 01/02/22 Diesel Engine Mechanic Relationship Specialty Start Date End Date Kya Hinton MD [address] [facility] [place] [place] [address] PCP - General Internal Medicine 02/08/17 Sudha Kim, RN [address] [place] [address] Specialty Electrical Controls Designer Hematology/Oncology 01/02/22 Diesel Engine Mechanic Relationship Specialty Start Date End Date Kya Hinton MD [address] [facility] [place] [place] [address] PCP - General Internal Medicine 02/08/17 Sudha Kim RN [address] [place] [address] Specialty Electrical Controls Designer Hematology/Oncology 01/02/22 Diesel Engine Mechanic Relationship Specialty Start Date End Date Kya Hinton MD [address] [facility] [place] [place] [address] PCP - General Internal Medicine 02/08/17 Sudha Kim RN [address] [place] [address] Specialty Electrical Controls Designer Hematology/Oncology 01/02/22 Diesel Engine Mechanic Relationship Specialty Start Date End Date Kya Hinton MD [address] [facility] [place] [place] [address] PCP - General Internal Medicine 02/08/17 Sudha Kim RN [address] [place] [address] Specialty Electrical Controls Designer Hematology/Oncology 01/02/22 Diesel Engine Mechanic Relationship Specialty Start Date End Date Kya Hinton MD [address] [facility] [place] [place] [address] PCP - General Internal Medicine 02/08/17 Sudha Kim RN [address] [place] [address] Specialty Electrical Controls Designer Hematology/Oncology 01/02/22 Diesel Engine Mechanic Relationship Specialty Start Date End Date Kya Hinton MD [address] [facility] [place] [place] [address] PCP - General Internal Medicine 02/08/17 Sudha Kim, RICHELLE [address] [place] [address] Specialty Electrical Controls Designer Hematology/Oncology 01/02/22 Diesel Engine Mechanic Relationship Specialty Start Date End Date Kya Hinton MD [address] [facility] [place] [place] [address] PCP - General Internal Medicine 02/08/17 Sudha Kim, RN [address] [place] [address] Specialty Electrical Controls Designer Hematology/Oncology 01/02/22 Diesel Engine Mechanic Relationship Specialty Start Date End Date Kya Hinton MD [address] [facility] [place] [place] [address] PCP - General Internal Medicine 02/08/17 Sudha Kim, RN [address] [place] [address] Specialty Electrical Controls Designer Hematology/Oncology 01/02/22 Diesel Engine Mechanic Relationship Specialty Start Date End Date Kya Hinton MD [address] [facility] [place] [place] [address] PCP - General Internal Medicine 02/08/17 Sudha Kim, RN [address] [place] [address] Specialty Electrical Controls Designer Hematology/Oncology 01/02/22 Diesel Engine Mechanic Relationship Specialty Start Date End Date Kya Hinton MD [address] [facility] [place] [place] [address] PCP - General Internal Medicine 02/08/17 Sudha Kim, RN [address] [place] [address] Specialty Electrical Controls Designer Hematology/Oncology 01/02/22 Diesel Engine Mechanic Relationship Specialty Start Date End Date Kya Hinton MD [address] [facility] [place] [address] PCP - General Internal Medicine 02/08/17 Sudha Kim, RN [address] [place] [address] Specialty Electrical Controls Designer Hematology/Oncology 01/02/22 Haydee Lemus MD [address] [place] [address] Oncology 12/09/22 Diesel Engine Mechanic Relationship Specialty Start Date End Date Kya Hinton MD [address] [place] [address] PCP - General Internal Medicine 02/08/17 Sudha Kim, RICHELLE [address] [place] [address] Specialty Electrical Controls Designer Hematology/Oncology 01/02/22 Haydee Lemus MD [address] [place] [address] Oncology 12/09/22 Diesel Engine Mechanic Relationship Specialty Start Date End Date Kya Hinton MD [address] [place] [address] PCP - General Internal Medicine 02/08/17 Sudha Kim, RICHELLE [address] [place] [address] Specialty Electrical Controls Designer Hematology/Oncology 01/02/22 Haydee Lemus MD [address] [place] [address] Oncology 12/09/22 Diesel Engine Mechanic Relationship Specialty Start Date End Date Kya Hinton MD [address] [place] [address] PCP - General Internal Medicine 02/08/17 Sudha Kim, RICHELLE [address] [place] [address] Specialty Electrical Controls Designer Hematology/Oncology 01/02/22 Haydee Lemus MD [address] [place] [address] Oncology 12/09/22 Diesel Engine Mechanic Relationship Specialty Start Date End Date Kya Hinton MD [address] [place] [address] PCP - General Internal Medicine 02/08/17 Sudha Kim, RICHELLE [address] [place] [address] Specialty Electrical Controls Designer Hematology/Oncology 01/02/22 Haydee Lemus MD [address] [place] [address] Oncology 12/09/22 Diesel Engine Mechanic Relationship Specialty Start Date End Date Kya Hinton MD [address] [place] [address] PCP - General Internal Medicine 02/08/17 Sudha Kim, RN [address] [place] [address] Specialty Electrical Controls Designer Hematology/Oncology 01/02/22 Haydee Lemus MD [address] [place] [address] Oncology 12/09/22 Diesel Engine Mechanic Relationship Specialty Start Date End Date Kya Hinton MD [address] [place] [address] PCP - General Internal Medicine 02/08/17 Sudha Kim, RN [address] [place] [address] Specialty Electrical Controls Designer Hematology/Oncology 01/02/22 Haydee Lemus MD [address] [place] [address] Oncology 12/09/22 Diesel Engine Mechanic Relationship Specialty Start Date End Date Kya Hinton MD [address] [place] [address] PCP - General Internal Medicine 02/08/17 Sudha Kim RN [address] [place] [address] Specialty Electrical Controls Designer Hematology/Oncology 01/02/22 Haydee Lemus MD [address] [place] [address] Oncology 12/09/22 Diesel Engine Mechanic Relationship Specialty Start Date End Date Kya Hinton MD [address] [place] [address] PCP - General Internal Medicine 02/08/17 Sudha Kim RN [address] [place] [address] Specialty Electrical Controls Designer Hematology/Oncology 01/02/22 Haydee Lemus MD [address] [place] [address] Oncology 12/09/22 Diesel Engine Mechanic Relationship Specialty Start Date End Date Kya Hinton MD [address] [place] [address] PCP - General Internal Medicine 02/08/17 Sudha Kim, RICHELLE [address] [place] [address] Specialty Electrical Controls Designer Hematology/Oncology 01/02/22 Haydee Lemus MD [address] [place] [address] Oncology 12/09/22 Diesel Engine Mechanic Relationship Specialty Start Date End Date Kya Hinton MD [address] [place] [address] PCP - General Internal Medicine 02/08/17 Sudha Kim, RN [address] [place] [address] Specialty Electrical Controls Designer Hematology/Oncology 01/02/22 Haydee Lemus MD [address] [place] [address] Oncology 12/09/22 Diesel Engine Mechanic Relationship Specialty Start Date End Date Kya Hinton MD [address] [place] [address] PCP - General Internal Medicine 02/08/17 Sudha Kim, RICHELLE [address] [place] [address] Specialty Electrical Controls Designer Hematology/Oncology 01/02/22 Haydee Lemus MD [address] [place] [address] Oncology 12/09/22 Diesel Engine Mechanic Relationship Specialty Start Date End Date Kya Hinton MD [address] [place] [address] PCP - General Internal Medicine 02/08/17 Sudha Kim, RN [address] [place] [address] Specialty Electrical Controls Designer Hematology/Oncology 01/02/22 Haydee Lemus MD [address] [place] [address] Oncology 12/09/22 Diesel Engine Mechanic Relationship Specialty Start Date End Date Kya Hinton MD [address] [place] [address] PCP - General Internal Medicine 02/08/17 Sudha Kim, RICHELLE [address] [place] [address] Specialty Electrical Controls Designer Hematology/Oncology 01/02/22 Haydee Lemus MD [address] [place] [address] Oncology 12/09/22 Diesel Engine Mechanic Relationship Specialty Start Date End Date Kya Hinton MD [address] [place] [address] PCP - General Internal Medicine 02/08/17 Sudha Kim, RICHELLE [address] [place] [address] Specialty Electrical Controls Designer Hematology/Oncology 01/02/22 Diesel Engine Mechanic Relationship Specialty Start Date End Date Kya Hinton MD [address] [place] [address] PCP - General Internal Medicine 02/08/17 Sudha Kim, RICHELLE [address] [place] [address] Specialty Electrical Controls Designer Hematology/Oncology 01/02/22 Diesel Engine Mechanic Relationship Specialty Start Date End Date Kya Hinton MD [address] [place] [address] PCP - General Internal Medicine 02/08/17 Sudha Kim, RICHELLE [address] [place] [address] Specialty Electrical Controls Designer Hematology/Oncology 01/02/22 Diesel Engine Mechanic Relationship Specialty Start Date End Date Kya Hinton MD [address] [facility] [place] [address] PCP - General Internal Medicine 02/08/17 Sudha Kim RN [address] [place] [address] Specialty Electrical Controls Designer Hematology/Oncology 01/02/22 Diesel Engine Mechanic Relationship Specialty Start Date End Date Kya Hinton MD [address] [facility] [place] [address] PCP - General Internal Medicine 02/08/17 Sudha Kim RN [address] [place] [address] Specialty Electrical Controls Designer Hematology/Oncology 01/02/22 Diesel Engine Mechanic Relationship Specialty Start Date End Date Kya Hinton MD [address] [facility] [place] [address] PCP - General Internal Medicine 02/08/17 Sudha Kim RN [address] [place] [address] Specialty Electrical Controls Designer Hematology/Oncology 01/02/22 Diesel Engine Mechanic Relationship Specialty Start Date End Date Kya Hinton MD [address] [facility] [place] [address] PCP - General Internal Medicine 02/08/17 Sudha Kim RN [address] [place] [address] Specialty Electrical Controls Designer Hematology/Oncology 01/02/22 Elliott Sylvester MD [address] [place] [address] Hematology/Oncology 06/03/23 Diesel Engine Mechanic Relationship Specialty Start Date End Date Kya Hinton MD [address] [place] [address] PCP - General Internal Medicine 02/08/17 Sudha Kim, RN [address] [place] [address] Specialty Electrical Controls Designer Hematology/Oncology 01/02/22 Elliott Sylvester MD [address] [place] [address] Hematology/Oncology 06/03/23 Diesel Engine Mechanic Relationship Specialty Start Date End Date Kya Hinton MD [address] [place] [address] PCP - General Internal Medicine 02/08/17 Sudha Kim, RICHELLE [address] [place] [address] Specialty Electrical Controls Designer Hematology/Oncology 01/02/22 Elliott Sylvester MD [address] [place] [address] Hematology/Oncology 06/03/23 Diesel Engine Mechanic Relationship Specialty Start Date End Date Kya Hinton MD [address] [place] [address] PCP - General Internal Medicine 02/08/17 Sudha Kim, RICHELLE [address] [place] [address] Specialty Electrical Controls Designer Hematology/Oncology 01/02/22 Elliott Sylvester MD [address] [place] [address] Hematology/Oncology 06/03/23 Diesel Engine Mechanic Relationship Specialty Start Date End Date Kya Hinton MD [address] [place] [address] PCP - General Internal Medicine 02/08/17 Sudha Kim, RICHELLE [address] [place] [address] Specialty Electrical Controls Designer Hematology/Oncology 01/02/22 Elliott Sylvester MD [address] [place] [address] Hematology/Oncology 06/03/23 Diesel Engine Mechanic Relationship Specialty Start Date End Date Kya Hinton MD [address] [place] [address] PCP - General Internal Medicine 02/08/17 Sudha Kim RN [address] [place] [address] Specialty Electrical Controls Designer Hematology/Oncology 01/02/22 Elliott Sylvester MD [address] [place] [address] Hematology/Oncology 06/03/23 Diesel Engine Mechanic Relationship Specialty Start Date End Date Kya Hinton MD [address] [place] [address] PCP - General Internal Medicine 02/08/17 Sudha Kim, RN [address] [place] [address] Specialty Electrical Controls Designer Hematology/Oncology 01/02/22 Elliott Sylvester MD [address] [place] [address] Hematology/Oncology 06/03/23 Diesel Engine Mechanic Relationship Specialty Start Date End Date Kya Hinton MD [address] [place] [address] PCP - General Internal Medicine 02/08/17 Sudha Kim RN [address] [place] [address] Specialty Electrical Controls Designer Hematology/Oncology 01/02/22 Elliott Sylvester MD [address] [place] [address] Hematology/Oncology 06/03/23 Diesel Engine Mechanic Relationship Specialty Start Date End Date Kya Hinton MD [address] [place] [address] PCP - General Internal Medicine 02/08/17 Sudha Kim RN [address] [place] [address] Specialty Electrical Controls Designer Hematology/Oncology 01/02/22 Elliott Sylvester MD [address] [place] [address] Hematology/Oncology 06/03/23 Diesel Engine Mechanic Relationship Specialty Start Date End Date Kya Hinton MD [address] [place] [address] PCP - General Internal Medicine 02/08/17 Sudha Kim RN [address] [place] [address] Specialty Electrical Controls Designer Hematology/Oncology 01/02/22 Haydee Lemus MD [address] [place] [address] Oncology 12/09/22 03/01/23 Diesel Engine Mechanic Relationship Specialty Start Date End Date Kya Hinton MD [address] [place] [address] PCP - General Internal Medicine 02/08/17 Sudha Kim, RICHELLE [address] [place] [address] Specialty Electrical Controls Designer Hematology/Oncology 01/02/22 Elliott Sylvester MD [address] [place] [address] Hematology/Oncology 06/03/23 Diesel Engine Mechanic Relationship Specialty Start Date End Date Kya Hinton MD [address] [place] [address] PCP - General Internal Medicine 02/08/17 Sudha Kim, RICHELLE [address] [place] [address] Specialty Electrical Controls Designer Hematology/Oncology 01/02/22 Elliott Sylvester MD [address] [place] [address] Hematology/Oncology 06/03/23 Diesel Engine Mechanic Relationship Specialty Start Date End Date Kya Hinton MD [address] [place] [address] PCP - General Internal Medicine 02/08/17 Sudha Kim, RICHELLE [address] [place] [address] Specialty Electrical Controls Designer Hematology/Oncology 01/02/22 Elliott Sylvester MD [address] [place] [address] Hematology/Oncology 06/03/23 Diesel Engine Mechanic Relationship Specialty Start Date End Date Kya Hinton MD [address] [place] [address] PCP - General Internal Medicine 02/08/17 Sudha Kim RN [address] [place] [address] Specialty Electrical Controls Designer Hematology/Oncology 01/02/22 Elliott Sylvester MD [address] [place] [address] Hematology/Oncology 06/03/23 Diesel Engine Mechanic Relationship Specialty Start Date End Date Kya Hinton MD [address] [place] [address] PCP - General Internal Medicine 02/08/17 Sudha Kim RN [address] [place] [address] Specialty Electrical Controls Designer Hematology/Oncology 01/02/22 Elliott Sylvester MD [address] [place] [address] Hematology/Oncology 06/03/23 Diesel Engine Mechanic Relationship Specialty Start Date End Date Kya Hinton MD [address] [place] [address] PCP - General Internal Medicine 02/08/17 Sudha Kim, RICHELLE [address] [place] [address] Specialty Electrical Controls Designer Hematology/Oncology 01/02/22 Elliott Sylvester MD [address] [place] [address] Hematology/Oncology 06/03/23 Diesel Engine Mechanic Relationship Specialty Start Date End Date Kya Hinton MD [address] [place] [address] PCP - General Internal Medicine 02/08/17 Sudha Kim RN [address] [place] [address] Specialty Electrical Controls Designer Hematology/Oncology 01/02/22 Elliott Sylvester MD [address] [place] [address] Hematology/Oncology 06/03/23 Diesel Engine Mechanic Relationship Specialty Start Date End Date Kya Hinton MD [address] [place] [address] PCP - General Internal Medicine 02/08/17 Sudha Kim RN [address] [place] [address] Specialty Electrical Controls Designer Hematology/Oncology 01/02/22 Elliott Sylvester MD [address] [place] [address] Hematology/Oncology 06/03/23 Diesel Engine Mechanic Relationship Specialty Start Date End Date Kya Hinton MD [address] [place] [address] PCP - General Internal Medicine 02/08/17 Sudha Kim RN [address] [place] [address] Specialty Electrical Controls Designer Hematology/Oncology 01/02/22 Elliott Sylvester MD [address] [place] [address] Hematology/Oncology 06/03/23 Diesel Engine Mechanic Relationship Specialty Start Date End Date Kya Hinton MD [address] [place] [address] PCP - General Internal Medicine 02/08/17 Sudha Kim RN [address] [place] [address] Specialty Electrical Controls Designer Hematology/Oncology 01/02/22 Elliott Sylvester MD [address] [place] [address] Hematology/Oncology 06/03/23 Rosy Morris PA-C [address] [place] [address] Acquisitions Assistant Family Medicine 09/03/24 Chel Rich APRN.CNP [address] [place] [address] Acquisitions Assistant Internal Medicine 09/03/24 Stanley Mckeon PA-C [address] [place] [address] Acquisitions Assistant Family Medicine 09/03/24 Diesel Engine Mechanic Relationship Specialty Start Date End Date Kya Hinton MD [address] [place] [address] PCP - General Internal Medicine 02/08/17 Sudha Kim, RICHELLE [address] [place] [address] Specialty Electrical Controls Designer Hematology/Oncology 01/02/22 Elliott Sylvester MD [address] [place] [address] Hematology/Oncology 06/03/23 Rosy Morris PA-C [address] [place] [address] Acquisitions Assistant Family Medicine 09/03/24 Chel Rich APRN.ACQUISITIONS ASSISTANT [address] [facility] [address] Acquisitions Assistant Internal Medicine 09/03/24 Stanley Mckeon PA-C [address] [place] [address] Acquisitions Assistant Family Medicine 09/03/24 Diesel Engine Mechanic Relationship Specialty Start Date End Date Kya Hinton MD [address] [place] [address] PCP - General Internal Medicine 02/08/17 Sudha Kim RN [address] [place] [address] Specialty Electrical Controls Designer Hematology/Oncology 01/02/22 Elliott Sylvester MD [address] [place] [address] Hematology/Oncology 06/03/23 Rosy Morris PA-C [address] [place] [address] Acquisitions Assistant Family Medicine 09/03/24 Chel Rich APRN.ACQUISITIONS ASSISTANT [address] [place] [address] Acquisitions Assistant Internal Medicine 09/03/24 Stanley Mckeon PA-C [address] [place] [address] [facility] Family [facility] 09/03/24 Diesel Engine Mechanic Relationship Specialty Start Date End Date Kya Hinton MD [address] [place] [address] PCP - General Internal Medicine 02/08/17 Sudha Kim, RICHELLE [address] [place] [address] Specialty Electrical Controls Designer Hematology/Oncology 01/02/22 Elliott Sylvester MD [address] [place] [address] Hematology/Oncology 06/03/23 Rosy Morris PA-C [address] [place] [address] Acquisitions Assistant Family Medicine 09/03/24 Chel Rich APRN.ACQUISITIONS ASSISTANT [address] [place] [address] Acquisitions Assistant Internal Medicine 09/03/24 Stanley Mckeon PA-C [address] [place] [address] Acquisitions Assistant Family Medicine 09/03/24 Diesel Engine Mechanic Relationship Specialty Start Date End Date Kya Hinton MD [address] [place] [address] PCP - General Internal Medicine 02/08/17 Sudha Kim, RICHELLE [address] [place] [address] Specialty Electrical Controls Designer Hematology/Oncology 01/02/22 Elliott Sylvester MD [address] [place] [address] Hematology/Oncology 06/03/23 Rosy Morris PA-C [address] [place] [address] Acquisitions Assistant Family Medicine 09/03/24 Chel Rich APRN.CNP [address] [place] [address] Acquisitions Assistant Internal Medicine 09/03/24 Stanley Mckeon PA-C [address] [place] [address] Acquisitions Assistant Family Medicine 09/03/24 Diesel Engine Mechanic Relationship Specialty Start Date End Date Kya Hinton MD [address] [place] [address] PCP - General Internal Medicine 02/08/17 Sudha Kim, RICHELLE [address] [place] [address] Specialty Electrical Controls Designer Hematology/Oncology 01/02/22 Elliott Sylvester MD [address] [place] [address] Hematology/Oncology 06/03/23 Rosy Morris PA-C [address] [place] [address] Acquisitions Assistant Family Medicine 09/03/24 Chel Rich APRN.ACQUISITIONS ASSISTANT [address] [place] [address] Acquisitions Assistant Internal Medicine 09/03/24 Stanley Mckeon PA-C [address] [facility] [place] [address] Acquisitions Assistant Family Medicine 09/03/24 Diesel Engine Mechanic Relationship Specialty Start Date End Date Kya Hinton MD [address] [place] [address] PCP - General Internal Medicine 02/08/17 Sudha Kim, RN [address] [place] [address] Specialty Electrical Controls Designer Hematology/Oncology 01/02/22 Elliott Sylvester MD [address] [place] [address] Hematology/Oncology 06/03/23 Rosy Morris PA-C [address] [place] [address] Acquisitions Assistant Family Medicine 09/03/24 Chel Rich APRN.ACQUISITIONS ASSISTANT [address] [place] [address] Acquisitions Assistant Internal Medicine 09/03/24 Stanley Mckeon PA-C [address] [place] [address] Acquisitions Assistant Family [facility] 09/03/24 Diesel Engine Mechanic Relationship Specialty Start Date End Date Kya Hinton MD [address] [place] [address] PCP - General Internal Medicine 02/08/17 Sudha Kim RN [address] [place] [address] Specialty Electrical Controls Designer Hematology/Oncology 01/02/22 Elliott Sylvester MD [address] [place] [address] Hematology/Oncology 06/03/23 Chel Rich APRN.ACQUISITIONS ASSISTANT [address] [place] [address] Acquisitions Assistant Internal Medicine 09/03/24 Diesel Engine Mechanic Relationship Specialty Start Date End Date Kya Hinton MD [address] [place] [address] PCP - General Internal Medicine 02/08/17 Sudha Kim RN [address] [place] [address] Specialty Electrical Controls Designer Hematology/Oncology 01/02/22 Elliott Sylvester MD [address] [place] [address] Hematology/Oncology 06/03/23 Chel Rich APRN.ACQUISITIONS ASSISTANT [address] [place] [address] Acquisitions Assistant Internal Medicine 09/03/24 Diesel Engine Mechanic Relationship Specialty Start Date End Date Kya Hinton MD [address] [place] [address] PCP - General Internal Medicine 02/08/17 Sudha Kim, RICHELLE [address] [place] [address] Specialty Electrical Controls Designer Hematology/Oncology 01/02/22 Elliott Sylvester MD [address] [place] [address] Hematology/Oncology 06/03/23 Chel Rich APRN.ACQUISITIONS ASSISTANT [address] [place] [address] Acquisitions Assistant Internal Medicine 09/03/24 Diesel Engine Mechanic Relationship Specialty Start Date End Date Kya Hinton MD [address] [place] [address] PCP - General Internal Medicine 02/08/17 Sudha Kim, RICHELLE [address] [place] [address] Specialty Electrical Controls Designer Hematology/Oncology 01/02/22 Elliott Sylvester MD [address] [place] [address] Hematology/Oncology 06/03/23 Chel Rich APRN.ACQUISITIONS ASSISTANT [address] [place] [address] Acquisitions Assistant Internal Medicine 09/03/24 Diesel Engine Mechanic Relationship Specialty Start Date End Date Kya Hinton MD [address] [place] [address] PCP - General Internal Medicine 02/08/17 Sudha Kim, RICHELLE [address] [place] [address] Specialty Electrical Controls Designer Hematology/Oncology 01/02/22 Elliott Sylvester MD [address] [place] [address] Hematology/Oncology 06/03/23 Chel Rich APRN.ACQUISITIONS ASSISTANT [address] [place] [address] Acquisitions Assistant Internal Medicine 09/03/24 Diesel Engine Mechanic Relationship Specialty Start Date End Date Kya Hinton MD [address] [place] [address] PCP - General Internal Medicine 02/08/17 Sudha Kim RN [address] [place] [address] Specialty Electrical Controls Designer Hematology/Oncology 01/02/22 Elliott Sylvester MD [address] [place] [address] Hematology/Oncology 06/03/23 Chel Rich APRN.ACQUISITIONS ASSISTANT [address] [place] [address] Acquisitions Assistant Internal Medicine 09/03/24 Diesel Engine Mechanic Relationship Specialty Start Date End Date Kya Hinton MD [address] [place] [address] PCP - General Internal Medicine 02/08/17 Sudha Kim, RICHELLE [address] [place] [address] Specialty Electrical Controls Designer Hematology/Oncology 01/02/22 Elliott Sylvester MD [address] [place] [address] Hematology/Oncology 06/03/23 Chel Rich APRN.ACQUISITIONS ASSISTANT [address] [place] [address] Acquisitions Assistant Internal Medicine 09/03/24 Diesel Engine Mechanic Relationship Specialty Start Date End Date Kya Hinton MD [address] [place] [address] PCP - General Internal Medicine 02/08/17 Sudha Kim RN [address] [place] [address] Specialty Electrical Controls Designer Hematology/Oncology 01/02/22 Elliott Sylvester MD [address] [place] [address] Hematology/Oncology 06/03/23 Chel Rich APRN.ACQUISITIONS ASSISTANT [address] [place] [address] Acquisitions Assistant Internal Medicine 09/03/24 Team Status: Active Member Role/Relationship Status Dates Dr. Kya Hinton MD Family Provider Active Dr. Kya Hinton MD Primary Care Provider Active Team Status: Inactive Member Role/Relationship Status Dates Dr. Kya Hinton MD Primary Care Provider Active Start: April 03, 2025 End: April 03, 2025 Dr. Kya Hinton MD Referring Provider Active Start: April 03, 2025 End: April 03, 2025 Julio Hunt DINKEY OPERATOR SLATE, DINKEY OPERATOR SLATE-C Attending Provider Active S tart: April 03, 2025 End: April 03, 2025 Diesel Engine Mechanic Relationship Specialty Start Date End Date Kya Hinton MD [address] [place] [address] PCP - General Internal Medicine 02/08/17 Sudha Kim RN [address] [place] [address] Specialty Electrical Controls Designer Hematology/Oncology 01/02/22 Elliott Sylvester MD [address] [place] [address] Hematology/Oncology 06/03/23 Chel Rich APRN.ACQUISITIONS ASSISTANT [address] [place] [address] Acquisitions Assistant Internal Medicine 09/03/24 Diesel Engine Mechanic Relationship Specialty Start Date End Date Kya Hinton MD [address] [place] [address] PCP - General Internal Medicine 02/08/17 Sudha Kim RN [address] [place] [address] Specialty Electrical Controls Designer Hematology/Oncology 01/02/22 Elliott Sylvester MD [address] [place] [address] Hematology/Oncology 06/03/23 Chel Rich APRN.ACQUISITIONS ASSISTANT [address] [place] [address] Acquisitions Assistant Internal Medicine 09/03/24 Goals (unrecognized section and content) Goals may be documented in a n alternate sectionGoals may be documented in an alternate section Inactive Administered Medications - up to 3 most recent administrations Administered Medications (un recognized section and content) Medication Order MAR Action Action Date Dose Rate Site leuprolide 22.5 mg subcutaneous syringe (ELIGARD) 22.5 mg, SUBCUTANEOUS, ONCE, 1 dose, On Trena 11/18/23 at 1030, Hazardous Chemotherapy Drug: Use appropriate PPE. Given 11/18/2023 10:45 AM EST 22.5 mg Abdomen, LLQ FOR RECORDS PERTAINING TO PATIENTS WHO ARE OR HAVE BEEN ENROLLED IN A CHEMICAL DEPENDENCY/SUBSTANCEABUSE PROGRAM, SOME INFORMATION MAY BE OMITTED. This clinical summary was aggregated from multiple sources. Caution should be exercised in using it in the provision of clinical care. This summary normalizes information from multiple sources, and as a consequence, information in this document may materially change the coding, format and clinical context of patient data. In addition, data may be omitted in some cases. CLINICAL DECISIONS SHOULD BE BASED ON THE PRIMARY CLINICAL RECORDS. [employer] provides no warranty or guarantee of the accuracy or completeness of information in this document.
[2025-05-12 08:11] LABS: Red Blood Cells-Urine > 100 SEEN /hpf (0-5)
[2025-05-12 09:02] LABS: AST(SGOT) 25 U/L (<=37); Alanine Aminotransfer ALT/SGPT 12 U/L (<=46); Albumin, Serum 4.4 g/dL (3.4-4.8); Alkaline Phosphatase 90 U/L (40-129); Anion Gap 12 (5-15); BUN 21 mg/dL (4-19); BUN/Creat Ratio 16.5 RATIO (10-20); Calcium,Total 9.9 mg/dL (7.6-11.0); Carbon Dioxide 24.1 mmol/L (21.0-32.0); Chloride 99 mmol/L (98-108); Estimated Creatinine Clearance 37.16 ml/min (50-250); Globulin 2.2 g/dL (2.2-4.2); Glucose 99 mg/dL (70-99); Potassium 4.9 mmol/L (3.3-5.1)
[2025-05-12 09:05] VITALS: BP 139/81; PULSE 66; RESP 16; TEMP 36.5; O2SAT 99
== END 2025-05-12 09:07 | disposition home or self-care (01) ==
PROVIDERS: Emergency Provider Emergency Medicine; PCP Internal Medicine; Visit Provider Emergency Medicine
DX: R31.9 Hematuria, unspecified (principal); N32.89 Other specified disorders of bladder; I25.10 Atherosclerotic heart disease of native coronary artery without angina pectoris; Z87.891 Personal history of nicotine dependence; I10 Essential (primary) hypertension; N13.1 Hydronephrosis with ureteral stricture, not elsewhere classified; E78.5 Hyperlipidemia, unspecified; Z79.82 Long term (current) use of aspirin; Z79.899 Other long term (current) drug therapy; F41.9 Anxiety disorder, unspecified; Z98.41 Cataract extraction status, right eye; Z90.49 Acquired absence of other specified parts of digestive tract; Z95.5 Presence of coronary angioplasty implant and graft; Z85.828 Personal history of other malignant neoplasm of skin; Z85.51 Personal history of malignant neoplasm of bladder; Z85.118 Personal history of other malignant neoplasm of bronchus and lung; Z85.46 Personal history of malignant neoplasm of prostate; Z85.830 Personal history of malignant neoplasm of bone
CPT/HCPCS: 74177; 80053; 81001; 85025; 99283; Q9967; A4216